=== PATIENT | female | born 1990 | race African-American/Black ===

== ENCOUNTER 2016-03-29 10:11 | Emergency (ER) | payer SELFPAY ==
[~2016-03-29 10:11] MED LIST: ATARAX OR; BENZ1TA PO; COGE1INJ IJ; COGE1INJ PO; DIVA500T3 PO; GEOD40CA OR; GEOD60CA OR; HYDR50TA8 OR; LITH300C PO; OLAN10TA2 PO; OLAN20TA PO; RISP1TAB3 PO; RISP3TAB16 OR; TRAZ50TA2 PO; ZANT150T OR
[2016-03-29 10:50] LABS: MEAN CORPUSCULAR HEMOGLOBIN 30.8 pg (27.0-33.0); MEAN CORPUSCULAR VOLUME 93.5 fl (80.0-96.0); RED CELL DISTRIBUTION WIDTH 13.5 % (11.5-14.5); WHITE BLOOD COUNT 6.6 K/mm3 (4.0-10.0)
[2016-03-29 10:57] LABS: AMPHETAMINES LEVEL URINE NEGATIVE (NEGATIVE); BENZODIAZEPINES URINE NEGATIVE (NEGATIVE); COCAINE METABOLITE URINE NEGATIVE (NEGATIVE); CONTROL LINE INT CTR LINE PRESENT; METHADONE URINE NEGATIVE (NEGATIVE); OPIATES URINE NEGATIVE (NEGATIVE); TRICYCLIC ANTIDEPRESS URINE NEGATIVE (NEGATIVE)
[2016-03-29 10:59] LABS: CONTROL LINE HCG INT CTR LINE PRESENT
[2016-03-29 11:12] LABS: ALBUMIN 3.4 GM/DL (3.2-5.2); ALBUMIN/GLOBULIN RATIO 0.87 (1.00-1.93); ALKALINE PHOSPHATASE 49 U/L (45-117); ALT/SGPT 48 U/L (12-78); ANION GAP 10 MEQ/L (8-16); AST/SGOT 26 U/L (15-37); BILIRUBIN,DIRECT < 0.1 MG/DL (0.0-0.2); BILIRUBIN,TOTAL 0.2 MG/DL (0.2-1.0); BLOOD UREA NITROGEN 7 MG/DL (7-18); CALCIUM LEVEL 9.6 MG/DL (8.5-10.1); CARBON DIOXIDE LEVEL 28 MEQ/L (21-32); CHLORIDE LEVEL 107 MEQ/L (98-107); GLOMERULAR FILTRATION RATE > 60.0 (>60); GLUCOSE, FASTING 88 MG/DL (70-105); POTASSIUM SERUM 4.2 MEQ/L (3.5-5.1); SODIUM LEVEL 145 MEQ/L (136-145); TOTAL PROTEIN 7.3 GM/DL (6.4-8.2)
[2016-03-29 11:19] LABS: LITHIUM LEVEL 1.25 MEQ/L (0.60-1.20)
--- NOTE | 2016-03-29 13:11 | EDDOCDS ---
Nurse's Notes [facility] Name: Estella Cruz Age: 26 yrs Sex: Female : 1990 Arrival Date: 03/29/2016 Time: 10:11 Bed BH Private MD: Other - Complete Info On Cds Diagnosis: Schizophrenia Presentation: 03/29 10:21 Presenting complaint: Patient states: hearing and seeing things since last night. hs1 Patient states voices make her scared and she was unable to sleep well last night. Patients sister present with patient. Pt also requesting test. Mental Health Triage Level: Level 2: Pt having auditory and visual hallucinations. Adult Sepsis Screening: The patient does not have new or worsening altered mentation. Patient's respiratory rate is less than 22. Systolic blood pressure is greater than 100. Patient has a qSOFA score of 0- Negative Sepsis Screen. Suicide/Homicide risk assessment- Patient denies SI and HI but presents with another emotional, behavioral or other mental health complaint. The patient reports that he/she has been admitted to an inpatient mental health facility in the last 30 days. The patient reports that he/she has no prior history of suicide attempt and/or organized plan. The patient reports that he/she has adequate social support. Transition of care: patient was not received from another setting of care. 10:21 Acuity: LYNN Level 3 hs1 10:21 Method Of Arrival: Walkin/Carried/Asstd hs1 Triage Assessment: 10:24 General: Appears in no apparent distress, Behavior is appropriate for age, cooperative. hs1 Pain: Denies pain. HIV screening NA for this visit Offered previously. Neurological: Level of Consciousness is awake, alert, obeys commands. Cardiovascular: Capillary refill < 3 seconds. Respiratory: Airway is patent Respiratory effort is even, unlabored. Derm: Skin is pink, warm & dry. normal. Historical: - Allergies: PENICILLINS (Unknown); - Home Meds: 1. divalproex 500 mg oral TbEC 1 tab 2 times per day 2. olanzapine 10 mg oral tab 3 tabs nightly verified with pharmacy 03/29/16 hs 3. lithium carbonate 300 mg oral tab 2 tabs twice a day verified with pharmacy 03/29/16 hs - PMHx: Schizophrenia; - PSHx: none; - Social history: Smoking status: Patient states was never smoker of tobacco. No barriers to communication noted, The patient speaks fluent Slovenian, Speaks appropriately for age. - Family history: Not pertinent. - : The pt / caregiver states he / she is not on anticoagulants. Home medication list is obtained from the patient, patients' pharmacy. - Exposure Risk Screening:: None identified. Screenin:00 Screening information is obtained from prior medical records. Fall risk: No risks ms2 identified. Assistance ADL's: requires no assistance with activities of daily living. Abuse/DV Screen: The patient / caregiver reports he/she is: not in a situation that causes fear, pain or injury. Nutritional screening: On. Nutritional screening: No deficits noted. Advance Directives: Currently, there is no health care proxy. There is no active DNR order. There is no living will. There is no Power of Iron Pourer. Advance directive information has not previously been placed in an [facility] medical record. Further advance directive information is declined. home support is adequate. Assessment: 11:30 General: Appears in no apparent distress, Behavior is cooperative. Neurological: Level ms2 of Consciousness is awake, alert, obeys commands. Respiratory: Airway is patent Respiratory effort is even, unlabored, Respiratory pattern is regular, symmetrical. Derm: Skin is normal. Musculoskeletal: Range of motion intact in all extremities. 13:05 General: Appears in no apparent distress, Behavior is cooperative. Neurological: Level ms2 of Consciousness is awake, alert, obeys commands. Respiratory: No deficits noted. Airway is patent Respiratory effort is even, unlabored, Respiratory pattern is regular, agonal. :. Derm: Skin is pink, warm & dry. Musculoskeletal: Range of motion intact in all extremities. Mental Health Eval: 11:47 Mental health consult is initiated at 23:30. 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 [facility] Behavioral Health: The patient is not an established patient of [facility] Behavioral Health. Referral Information: Evaluation referral is generated by the patient himself / herself. The patient was referred for evaluation because she reports suffering from AH and VH last night that triggered her to become fearful. She denied SI and HI, command AH upon arrival.... Subjective: The patients chief complaint is pt states, "I'm feeling much better." Pt reports a hx of Schizophrenia, however reports she was misdiagnosed and while admitted to [facility](Feb, 2016), diagnosis changed to Bi-polar Disorder with psychotic features. States she was discharged from [facility] on 03/18/16 with follow up tx with [facility]. Apparently, pt has missed 3 of her appts, however continues to remain med compliant. She does appear to be internally pre-occupied. Denies AH and VH currently, however last night she reports hearing "noises that scared her" along with "seeing demons." Pt states, "I'm feeling so much better." Pt is very calm and cooperative during interview. Pt and family are comfortable with discharge plan and report no concerns currently. . Delusions are denied. Patient's mood is appropriate. hallucinations are Denied currently. Last AH/VH was last night and denied command. . Mental Health history: Bipolar Disorder, Mental Health Admissions: Numerous admissions, last admission 03/07/16 and 03/18/16 Current Outpatient Mental Health Services: [facility], Next appt scheduled for 03/30 at 12:30 PM . Current living environment is Family / Home Support: adequate family support The patient currently lives with his / her child. with his / her spouse, . The patient is . Patient presents to Emergency Department with the following symptoms within the past 2 weeks: auditory hallucinations stated by patient visual hallucinations, stated by patient. Substance abuse: Pt denies. Mental status exam: Patients appearance is appropriate, Patient's behavior is cooperative, Speech is normal. Affect is appropriate. Mood is appropriate. Appetite is normal. Memory is good. Energy level is normal. Content of thought is normal. Thought process is intact. Cognitive level is oriented to person, place, time and situation Patient's insight is good. Judgement is good. Rapport with interviewer is good. Suicidal Ideation is denied. Homicidal ideation is denied. Disposition: Medically cleared for disposition by Rosemary Osborn MD Psychiatric Consult is deferred per ED physician, Dr Florentino . [facility] Admission Criteria: Not Applicable. [place] because the patient does not display any suicidal or homicidal ideations and does not pose a risk to self or others. DSM-V Differential Diagnosis: Bipolar I Disorder (F31.0). Insurance Pre-Certification: Not Required. Narrative: Pt is able to be discharged from [facility]. She continues to deny SI and HI, denies AH/VH currently. Referrals for outpt services was given at bedside and directed to follow up with TLS tomorrow 03/30 at 12:30 PM for further tx. Vital Signs: 10:13 BP 105 / 62; Pulse 87; Resp 18; Temp 97.3(O); Pulse Ox 99% on R/A; Weight 74.84 kg (R); ct3 Height 5 ft. 4 in. (162.56 cm) (R); Pain 0/10; 13:06 BP 114 / 67; Pulse 76; Resp 20 S; Temp 97.1(T); Pulse Ox 99% on R/A; ms2 10:13 Body Mass Index 28.32 (74.84 kg, 162.56 cm) ct3 Vitals: 10:13 Log In Time: March 29, 2016 at 10:10. RN notified that patient meets Red Flag ct3 criteria. ED Course: 10:12 Patient visited by Beth Carter PCA. ct3 10:12 Patient moved to [facility] ct3 10:13 Other - Complete Info On Cds is Private Physician. ct3 10:21 Patient moved to [facility] hs1 10:23 Triage Initiated hs1 10:36 Patient visited by Dru Pérez PCA. jlf 10:37 Patient visited by Dru Pérez PCA. jlf 10:37 Property removed, inventory done, secured in belongings bag-. Psych Safety Check: [facility] Location: Psych Room. Visual Assessment: Cooperative. 10:37 Acetaminophen Level Sent. jlf 10:37 Basic Metabolic Profile Sent. jlf 10:37 Complete Blood Count Sent. jlf 10:37 Drug Eval Toxicology ED Only Sent. jlf 10:37 Ethyl Alcohol (ethanol) Sent. jlf 10:37 HCG,Serum Qualitative Sent. jlf 10:37 Liver Profile Sent. jlf 10:37 Salicylate Level Sent. jlf 10:37 Thyroid Stimulating Hormone Sent. jlf 10:40 Rosemary Osborn MD is Attending Physician. sd1 10:41 Patient visited by Rosemary Osborn MD. sd1 10:41 Pt greeted and oriented to ED. Patient advised of names of staff involved in care, pjf location of call mathews, wait times and NPO status. Accompanied by Family Member, Patient has correct armband on for positive identification. Placed in psych safe attire. Bed in low position. Call light in reach. Side rails up X 1. Security observing. Property Property placed in locker #1. Door closed. Report received from rn - psych. triage level #2, +ah/vh, cooperative \\T\\ this time. The patient / caregiver is instructed regarding the plan of care and ED course. 10:57 Patient visited by Casey Montanez Security Aide. pjf 11:07 José Miguel Andrew,RN is Primary Nurse. ms2 11:07 Patient name changed from Estella\\S\\Keonne\\S\\Latulas\\S\\ to Estella\\S\\Keonne\\S\\Sequatchie. EDMS 11:09 [facility] Payment Agreement was scanned into Blend[employer] and attached to record. pm4 11:13 Patient visited by Casey Montanez Security Aide. pjf 11:36 Patient visited by Casey Montanez Security Aide. pjf 11:48 Patient visited by Casey Montanez Security Aide. pjf 12:17 Referral list, As provided by [facility] is Referral Physician. sd1 12:23 PSA Outpatient Referrals was scanned into Blendagram and attached to record. ml4 12:50 Patient visited by Casey Montanez Security Aide. pjf 13:00 No IV's were initiated during this patient's visit. No procedures done that require ms2 assistance. 13:04 Patient visited by Casey Montanez Security Aide. pjf 13:05 Patient visited by José Miguel Andrew RN. ms2 Order Results: Lab Order: Acetaminophen Level; SPEC'M 03/29/16 10:34 Test: ACETAMINOPHEN LEVEL; Value: < 2.0; Range: 10.0-30.0; Abnormal: Below low normal; Units: UG/ML; Status: F Lab Order: Basic Metabolic Profile; SPEC'M 03/29/16 10:34 Test: GLUCOSE, FASTING; Value: 88; Range: 70-105; Units: MG/DL; Status: F Test: BLOOD UREA NITROGEN; Value: 7; Range: 7-18; Units: MG/DL; Status: F Test: CREATININE FOR GFR; Value: 0.70; Range: 0.55-1.02; Units: MG/DL; Status: F Test: SODIUM LEVEL; Range: 136-145; Units: MEQ/L; Status: I Test: POTASSIUM SERUM; Range: 3.5-5.1; Units: MEQ/L; Status: I Test: CHLORIDE LEVEL; Range: 98-107; Units: MEQ/L; Status: I Test: CARBON DIOXIDE LEVEL; Range: 21-32; Units: MEQ/L; Status: I Test: ANION GAP; Range: 8-16; Units: MEQ/L; Status: I Test: CALCIUM LEVEL; Range: 8.5-10.1; Units: MG/DL; Status: I Test: GLOMERULAR FILTRATION RATE; Value: > 60.0; Range: >60; Status: F Test: SODIUM LEVEL; Value: 145; Range: 136-145; Units: MEQ/L; Status: F Test: POTASSIUM SERUM; Value: 4.2; Range: 3.5-5.1; Units: MEQ/L; Status: F Test: CHLORIDE LEVEL; Value: 107; Range: 98-107; Units: MEQ/L; Status: F Test: CARBON DIOXIDE LEVEL; Value: 28; Range: 21-32; Units: MEQ/L; Status: F Test: ANION GAP; Value: 10; Range: 8-16; Units: MEQ/L; Status: F Test: CALCIUM LEVEL; Value: 9.6; Range: 8.5-10.1; Units: MG/DL; Status: F Test Note: ; Units are mL/min/1.73 m2 Chronic Kidney Disease Staging per NKF: Stage I & II GFR >=60 Normal to Mildly Decreased Stage III GFR 30-59 Moderately Decreased Stage IV GFR 15-29 Severely Decreased Stage V GFR <15 Very Little GFR Left ESRD GFR <15 on ORTHOPEDIC ASSISTANT Lab Order: Complete Blood Count; SPEC'M 03/29/16 10:34 Test: WHITE BLOOD COUNT; Value: 6.6; Range: 4.0-10.0; Units: K/mm3; Status: F Test: RED BLOOD COUNT; Value: 3.66; Range: 4.00-5.40; Abnormal: Below low normal; Units: M/mm3; Status: F Test: HEMOGLOBIN; Value: 11.3; Range: 12.0-16.0; Abnormal: Below low normal; Units: g/dl; Status: F Test: HEMATOCRIT; Value: 34.2; Range: 36.0-47.0; Abnormal: Below low normal; Units: %; Status: F Test: MEAN CORPUSCULAR VOLUME; Value: 93.5; Range: 80.0-96.0; Units: fl; Status: F Test: MEAN CORPUSCULAR HEMOGLOBIN; Value: 30.8; Range: 27.0-33.0; Units: pg; Status: F Test: MEAN CORPUSCULAR HGB CONC; Value: 33.0; Range: 32.0-36.5; Units: g/dl; Status: F Test: RED CELL DISTRIBUTION WIDTH; Value: 13.5; Range: 11.5-14.5; Units: %; Status: F Test: PLATELET COUNT, AUTOMATED; Value: 251; Range: 150-450; Units: k/mm3; Status: F Lab Order: Drug Eval Toxicology ED Only; SPEC'M 03/29/16 10:36 Test: AMPHETAMINES LEVEL URINE; Value: NEGATIVE; Range: NEGATIVE; Status: F Test: BARBITURATES URINE; Value: NEGATIVE; Range: NEGATIVE; Status: F Test: BENZODIAZEPINES URINE; Value: NEGATIVE; Range: NEGATIVE; Status: F Test: CANNABINOIDS URINE; Value: NEGATIVE; Range: NEGATIVE; Status: F Test: COCAINE METABOLITE URINE; Value: NEGATIVE; Range: NEGATIVE; Status: F Test: METHADONE URINE; Value: NEGATIVE; Range: NEGATIVE; Status: F Test: OPIATES URINE; Value: NEGATIVE; Range: NEGATIVE; Status: F Test: TRICYCLIC ANTIDEPRESS URINE; Value: NEGATIVE; Range: NEGATIVE; Status: F Test Note: ; ALL PRESUMPTIVE POSITIVE FINDINGS ARE UNCONFIRMED NORMAL VALUES THRESHOLD IN NG/ML AMPHETAMINES 1000 METHAMPHETAMINES 1000 BARBITURATES 300 BENZODIAZEPINES 300 CANNABINOIDS (THC) 50 COCAINE METABOLITE 300 METHADONE 300 OPIATES 300 PHENCYCLIDINE 25 TRICYCLIC ANTIDEPRESSANTS 1000 RESULTS ARE FOR MEDICAL PURPOSES ONLY. ALL URINE SPECIMENS WILL BE SAVED FOR 3 DAYS. IF CONFIRMATION OF A PRESUMPTIVE POSTIVE SCREEN RESULT IS DESIRED, CALL CHEMISTRY ([phone]) AND REQUEST URINE TO BE SENT TO REFERENCE LAB. FOR A LIST OF CLOSELY RELATED COMPOUNDS PLEASE CALL THE LAB. Lab Order: Ethyl Alcohol (ethanol); SPEC'M 03/29/16 10:34 Test: ETHYL ALCOHOL (ETHANOL); Value: < 0.003; Range: 0.000-0.010; Units: %; Status: F Lab Order: HCG,Serum Qualitative; 03/29/16 10:34 Test: HCG, SERUM QUALITATIVE; Value: NEGATIVE; Range: NEGATIVE; Status: F Lab Order: Liver Profile; 03/29/16 10:34 Test: AST/SGOT; Value: 26; Range: 15-37; Units: U/L; Status: F Test: ALT/SGPT; Value: 48; Range: 12-78; Units: U/L; Status: F Test: ALKALINE PHOSPHATASE; Value: 49; Range: 45-117; Units: U/L; Status: F Test: BILIRUBIN,TOTAL; Value: 0.2; Range: 0.2-1.0; Units: MG/DL; Status: F Test: BILIRUBIN,DIRECT; Value: < 0.1; Range: 0.0-0.2; Units: MG/DL; Status: F Test: TOTAL PROTEIN; Value: 7.3; Range: 6.4-8.2; Units: GM/DL; Status: F Test: ALBUMIN; Value: 3.4; Range: 3.2-5.2; Units: GM/DL; Status: F Test: ALBUMIN/GLOBULIN RATIO; Value: 0.87; Range: 1.00-1.93; Abnormal: Below low normal; Status: F Lab Order: Salicylate Level; 03/29/16 10:34 Test: SALICYLATE LEVEL; Value: < 1.7; Range: 5.0-30.0; Abnormal: Below low normal; Units: MG/DL; Status: F Lab Order: Thyroid Stimulating Hormone; 03/29/16 10:34 Test: THYROID STIMULATING HORMONE; Value: 11.600; Range: 0.358-3.740; Abnormal: Above high normal; Units: uIU/ML; Status: F Lab Order: LITHIUM LEVEL; 03/29/16 10:34 Test: LITHIUM LEVEL; Value: 1.25; Range: 0.60-1.20; Abnormal: Above high normal; Units: MEQ/L; Status: F Lab Order: VALPROIC ACID (DEPAKOTE); 03/29/16 10:34 Test: VALPROIC ACID (DEPAKOTE); Value: 99.6; Range: 50.0-100.0; Units: UG/ML; Status: F Outcome: 12:18 Discharge ordered by Provider. sd1 13:05 Discharge Assessment: patient administered narcotics - no. The following High Risk ms2 Discharge criteria are identified: None. Discharged to home ambulatory, with parent. Condition: stable. Discharge instructions given to patient, parents Instructed on discharge instructions, follow up and referral plans. Demonstrated understanding of instructions, Pt was receptive of discharge instructions/ teaching. No special radiology studies were completed. 13:09 Patient left the ED. ms2 Signatures: Dispatcher [employer] EDAL Rosemary Osborn MD MD sd1 José Miguel Andrew,RN RN ms2 Casey Montanez, Security Aide DorisSharda Camarena, PSA PSA ml4 Kymberly Stallings RN RN hs1 Beth Carter, NETWORK OPERATIONS CENTER TECHNICIAN NETWORK OPERATIONS CENTER TECHNICIAN ct3 Dru Pérez, NETWORK OPERATIONS CENTER TECHNICIAN NETWORK OPERATIONS CENTER TECHNICIAN jlf Casey Campbell, Reg Reg pm4 Corrections: (The following items were deleted from the chart) 10:48 10:41 Report received from rn - psych. triage level #2, ams, cooperative \\T\\ this time [id number] 11:00 10:23 Home Meds: olanzapine 20 mg oral tab 1 tab nightly; hs1 hs1 11:00 10:36 Home Meds: lithium carbonate Oral; hs1 hs1 MTDD
--- NOTE | 2016-03-29 13:11 | EDDOCDS ---
Physician Documentation [facility] Name: Estella Cruz Age: 26 yrs Sex: Female : 1990 Arrival Date: 03/29/2016 Time: 10:11 Bed BHU1 Private MD: Other - Complete Info On Cds Disposition: 03/29/16 12:18 Discharged to Home/Self Care. Impression: Schizophrenia. - Condition is Stable. - Discharge Instructions: Schizophrenia. - Medication Reconciliation, Local Pharmacy Hours form. - Follow up: Referral list, As provided by PFS; When: Call to arrange an appointment. - Problem is chronic. - Symptoms have improved. Historical: - Allergies: PENICILLINS (Unknown); - Home Meds: 1. divalproex 500 mg oral TbEC 1 tab 2 times per day 2. olanzapine 10 mg oral tab 3 tabs nightly verified with pharmacy 03/29/16 hs 3. lithium carbonate 300 mg oral tab 2 tabs twice a day verified with pharmacy 03/29/16 hs - PMHx: Schizophrenia; - PSHx: none; - Social history: Smoking status: Patient states was never smoker of tobacco. No barriers to communication noted, The patient speaks fluent Bulgarian, Speaks appropriately for age. - Family history: Not pertinent. - : The pt / caregiver states he / she is not on anticoagulants. Home medication list is obtained from the patient, patients' pharmacy. - Exposure Risk Screening:: None identified. Vital Signs: 03/29 10:13 BP 105 / 62; Pulse 87; Resp 18; Temp 97.3(O); Pulse Ox 99% on R/A; Weight 74.84 kg / ct3 164.99 lbs (R); Height 5 ft. 4 in. (162.56 cm) (R); Pain 0/10; 13:06 BP 114 / 67; Pulse 76; Resp 20 S; Temp 97.1(T); Pulse Ox 99% on R/A; ms2 10:13 Body Mass Index 28.32 (74.84 kg, 162.56 cm) ct3 MDM: 10:24 Consult PFS/PSA/Tube Making Machine Operator ordered. sd1 10:24 Consult PFS/PSA/Tube Making Machine Operator: Patient's case requires discussion with on-call sd1 Psychiatrist ordered. 10:24 PSA/PFS to call Nursing Motion Picture Film Examiner, to enter patient data on [place] Safe Act if patient sd1 involuntarily admitted or transferred for SI or HI ordered. 10:24 Confirm accurate psychiatric medication list and times of last dosage ordered. sd1 10:24 Detain Pt Until Medically/PFS Cleared ordered. sd1 10:25 Acetaminophen Level Ordered. EDMS 10:25 Basic Metabolic Profile Ordered. EDMS 10:25 Complete Blood Count Ordered. EDMS 10:25 Drug Eval Toxicology ED Only Ordered. EDMS 10:25 Ethyl Alcohol (ethanol) Ordered. EDMS 10:25 HCG,Serum Qualitative Ordered. EDMS 10:25 Liver Profile Ordered. EDMS 10:25 Salicylate Level Ordered. EDMS 10:25 Thyroid Stimulating Hormone Ordered. EDMS 10:40 HIV Screen, Nursing ordered. sd1 10:41 LITHIUM LEVEL Ordered. EDMS 10:41 VALPROIC ACID (DEPAKOTE) Ordered. EDMS 11:03 Financial registration complete. pm4 11:09 REGULAR DIET PLASTIC BHAKTA+DIET ordered. EDMS 11:09 [facility] Payment Agreement was scanned into Lovely and attached to record. pm4 11:38 Acetaminophen Level Reviewed. sd1 11:38 Complete Blood Count Reviewed. sd1 11:38 Liver Profile Reviewed. sd1 11:38 Salicylate Level Reviewed. sd1 11:38 Thyroid Stimulating Hormone Reviewed. sd1 11:38 LITHIUM LEVEL Reviewed. sd1 11:38 Basic Metabolic Profile Reviewed. sd1 11:38 Drug Eval Toxicology ED Only Reviewed. sd1 11:38 Ethyl Alcohol (ethanol) Reviewed. sd1 11:38 HCG,Serum Qualitative Reviewed. sd1 11:38 VALPROIC ACID (DEPAKOTE) Reviewed. sd1 12:23 PSA Outpatient Referrals was scanned into Lov[employer] and attached to record. ml4 Signatures: Dispatcher [employer] EDNC Rosemary Osborn MD MD sd1 José Miguel AndrewRN RN ms2 Sharda Jimenez, PSA PSA ml4 Kymberly Stallings RN RN hs1 Casey Campbell, Reg Reg pm4 The chart was reviewed and I authenticate all verbal orders and agree with the evaluation and treatment provided.Corrections: (The following items were deleted from the chart) 10:39 10:37 LITHIUM LEVEL+LAB ordered. EDMS EDMS 10:41 10:38 VALPROIC ACID (DEPAKOTE)+LAB ordered. EDMS EDMS 11:00 10:23 Home Meds: olanzapine 20 mg oral tab 1 tab nightly; hs1 hs1 11:00 10:36 Home Meds: lithium carbonate Oral; hs1 hs1 Attachments: 11:09 [facility] Payment Agreement pm4 MTDD
--- NOTE | 2016-03-31 14:11 | EDDOCDS ---
Physician Documentation [facility] Name: Estella Cruz Age: 26 yrs Sex: Female : 1990 Arrival Date: 03/29/2016 Time: 10:11 Bed BHU1 Private MD: Other - Complete Info On Cds Disposition: 03/29/16 12:18 Discharged to Home/Self Care. Impression: Schizophrenia. - Condition is Stable. - Discharge Instructions: Schizophrenia. - Medication Reconciliation, Local Pharmacy Hours form. - Follow up: Referral list, As provided by PFS; When: Call to arrange an appointment. - Problem is chronic. - Symptoms have improved. Historical: - Allergies: PENICILLINS (Unknown); - Home Meds: 1. divalproex 500 mg oral TbEC 1 tab 2 times per day 2. olanzapine 10 mg oral tab 3 tabs nightly verified with pharmacy 03/29/16 hs 3. lithium carbonate 300 mg oral tab 2 tabs twice a day verified with pharmacy 03/29/16 hs - PMHx: Schizophrenia; - PSHx: none; - Social history: Smoking status: Patient states was never smoker of tobacco. No barriers to communication noted, The patient speaks fluent Occitan, Speaks appropriately for age. - Family history: Not pertinent. - : The pt / caregiver states he / she is not on anticoagulants. Home medication list is obtained from the patient, patients' pharmacy. - Exposure Risk Screening:: None identified. Vital Signs: 03/29 10:13 BP 105 / 62; Pulse 87; Resp 18; Temp 97.3(O); Pulse Ox 99% on R/A; Weight 74.84 kg / ct3 164.99 lbs (R); Height 5 ft. 4 in. (162.56 cm) (R); Pain 0/10; 13:06 BP 114 / 67; Pulse 76; Resp 20 S; Temp 97.1(T); Pulse Ox 99% on R/A; ms2 10:13 Body Mass Index 28.32 (74.84 kg, 162.56 cm) ct3 MDM: 10:24 Consult PFS/PSA/Archeology Professor ordered. sd1 10:24 Consult PFS/PSA/Archeology Professor: Patient's case requires discussion with on-call sd1 Psychiatrist ordered. 10:24 PSA/PFS to call Nursing [employer] Tech, to enter patient data on [place] Safe [place] if patient sd1 involuntarily admitted or transferred for SI or HI ordered. 10:24 Confirm accurate psychiatric medication list and times of last dosage ordered. sd1 10:24 Detain Pt Until Medically/PFS Cleared ordered. sd1 10:25 Acetaminophen Level Ordered. EDMS 10:25 Basic Metabolic Profile Ordered. EDMS 10:25 Complete Blood Count Ordered. EDMS 10:25 Drug Eval Toxicology ED Only Ordered. EDMS 10:25 Ethyl Alcohol (ethanol) Ordered. EDMS 10:25 HCG,Serum Qualitative Ordered. EDMS 10:25 Liver Profile Ordered. EDMS 10:25 Salicylate Level Ordered. EDMS 10:25 Thyroid Stimulating Hormone Ordered. EDMS 10:40 HIV Screen, Nursing ordered. sd1 10:41 LITHIUM LEVEL Ordered. EDMS 10:41 VALPROIC ACID (DEPAKOTE) Ordered. EDMS 11:03 Financial registration complete. pm4 11:09 REGULAR DIET PLASTIC BHAKTA+DIET ordered. EDMS 11:09 [facility] Payment Agreement was scanned into [employer] and attached to record. pm4 11:38 Acetaminophen Level Reviewed. sd1 11:38 Complete Blood Count Reviewed. sd1 11:38 Liver Profile Reviewed. sd1 11:38 Salicylate Level Reviewed. sd1 11:38 Thyroid Stimulating Hormone Reviewed. sd1 11:38 LITHIUM LEVEL Reviewed. sd1 11:38 Basic Metabolic Profile Reviewed. sd1 11:38 Drug Eval Toxicology ED Only Reviewed. sd1 11:38 Ethyl Alcohol (ethanol) Reviewed. sd1 11:38 HCG,Serum Qualitative Reviewed. sd1 11:38 VALPROIC ACID (DEPAKOTE) Reviewed. sd1 12:23 PSA Outpatient Referrals was scanned into [employer] and attached to record. ml4 03/30 11:11 T-Sheet-- Draft Copy was scanned into [employer] and attached to record. gb Signatures: Dispatcher [employer] EDMS Rosemary Osborn MD MD sd1 José Miguel Andrew,RN RN ms2 Xiomara Nugent, Reg Reg gb Sharda Jimenez, PSA PSA ml4 Kymberly Stallings RN RN hs1 Casey Campbell, Reg Reg pm4 The chart was reviewed and I authenticate all verbal orders and agree with the evaluation and treatment provided.Corrections: (The following items were deleted from the chart) 03/29 10:39 10:37 LITHIUM LEVEL+LAB ordered. EDMS EDMS 10:41 10:38 VALPROIC ACID (DEPAKOTE)+LAB ordered. EDMS EDMS 11:00 10:23 Home Meds: olanzapine 20 mg oral tab 1 tab nightly; hs1 hs1 11:00 10:36 Home Meds: lithium carbonate Oral; hs1 hs1 Attachments: 11:09 [facility] Payment Agreement pm4 03/30 11:11 T-Sheet-- Draft Copy gb Chart Complete MTDD
--- NOTE | 2016-03-31 14:11 | EDDOCDS ---
Nurse's Notes [facility] Name: Estella Cruz Age: 26 yrs Sex: Female : 1990 Arrival Date: 03/29/2016 Time: 10:11 Bed BH Private MD: Other - Complete Info On Cds Diagnosis: Schizophrenia Presentation: 03/29 10:21 Presenting complaint: Patient states: hearing and seeing things since last night. hs1 Patient states voices make her scared and she was unable to sleep well last night. Patients sister present with patient. Pt also requesting test. Mental Health Triage Level: Level 2: Pt having auditory and visual hallucinations. Adult Sepsis Screening: The patient does not have new or worsening altered mentation. Patient's respiratory rate is less than 22. Systolic blood pressure is greater than 100. Patient has a qSOFA score of 0- Negative Sepsis Screen. Suicide/Homicide risk assessment- Patient denies SI and HI but presents with another emotional, behavioral or other mental health complaint. The patient reports that he/she has been admitted to an inpatient mental health facility in the last 30 days. The patient reports that he/she has no prior history of suicide attempt and/or organized plan. The patient reports that he/she has adequate social support. Transition of care: patient was not received from another setting of care. 10:21 Acuity: LYNN Level 3 hs1 10:21 Method Of Arrival: Walkin/Carried/Asstd hs1 Triage Assessment: 10:24 General: Appears in no apparent distress, Behavior is appropriate for age, cooperative. hs1 Pain: Denies pain. HIV screening NA for this visit Offered previously. Neurological: Level of Consciousness is awake, alert, obeys commands. Cardiovascular: Capillary refill < 3 seconds. Respiratory: Airway is patent Respiratory effort is even, unlabored. Derm: Skin is pink, warm & dry. normal. Historical: - Allergies: PENICILLINS (Unknown); - Home Meds: 1. divalproex 500 mg oral TbEC 1 tab 2 times per day 2. olanzapine 10 mg oral tab 3 tabs nightly verified with pharmacy 03/29/16 hs 3. lithium carbonate 300 mg oral tab 2 tabs twice a day verified with pharmacy 03/29/16 hs - PMHx: Schizophrenia; - PSHx: none; - Social history: Smoking status: Patient states was never smoker of tobacco. No barriers to communication noted, The patient speaks fluent Urdu, Speaks appropriately for age. - Family history: Not pertinent. - : The pt / caregiver states he / she is not on anticoagulants. Home medication list is obtained from the patient, patients' pharmacy. - Exposure Risk Screening:: None identified. Screenin:00 Screening information is obtained from prior medical records. Fall risk: No risks ms2 identified. Assistance ADL's: requires no assistance with activities of daily living. Abuse/DV Screen: The patient / caregiver reports he/she is: not in a situation that causes fear, pain or injury. Nutritional screening: On. Nutritional screening: No deficits noted. Advance Directives: Currently, there is no health care proxy. There is no active DNR order. There is no living will. There is no Power of Property Manager. Advance directive information has not previously been placed in an [facility] medical record. Further advance directive information is declined. home support is adequate. Assessment: 11:30 General: Appears in no apparent distress, Behavior is cooperative. Neurological: Level ms2 of Consciousness is awake, alert, obeys commands. Respiratory: Airway is patent Respiratory effort is even, unlabored, Respiratory pattern is regular, symmetrical. Derm: Skin is normal. Musculoskeletal: Range of motion intact in all extremities. 13:05 General: Appears in no apparent distress, Behavior is cooperative. Neurological: Level ms2 of Consciousness is awake, alert, obeys commands. Respiratory: No deficits noted. Airway is patent Respiratory effort is even, unlabored, Respiratory pattern is regular, agonal. :. Derm: Skin is pink, warm & dry. Musculoskeletal: Range of motion intact in all extremities. Mental Health Eval: 11:47 Mental health consult is initiated at 23:30. Status: The patient is not a ml4 foreign exchange services manager or dependent. [facility] Behavioral Health: The patient is not an established patient of [facility] Behavioral Health. Referral Information: Evaluation referral is generated by the patient himself / herself. The patient was referred for evaluation because she reports suffering from AH and VH last night that triggered her to become fearful. She denied SI and HI, command AH upon arrival.... Subjective: The patients chief complaint is pt states, "I'm feeling much better." Pt reports a hx of Schizophrenia, however reports she was misdiagnosed and while admitted to [facility](Feb, 2016), diagnosis changed to Bi-polar Disorder with psychotic features. States she was discharged from [facility] on 03/18/16 with follow up tx with [facility]. Apparently, pt has missed 3 of her appts, however continues to remain med compliant. She does appear to be internally pre-occupied. Denies AH and VH currently, however last night she reports hearing "noises that scared her" along with "seeing demons." Pt states, "I'm feeling so much better." Pt is very calm and cooperative during interview. Pt and family are comfortable with discharge plan and report no concerns currently. . Delusions are denied. Patient's mood is appropriate. hallucinations are Denied currently. Last AH/VH was last night and denied command. . Mental Health history: Bipolar Disorder, Mental Health Admissions: Numerous admissions, last admission 03/07/16 and 03/18/16 Current Outpatient Mental Health Services: [facility], Next appt scheduled for 03/30 at 12:30 PM . Current living environment is Family / Home Support: adequate family support The patient currently lives with his / her child. with his / her spouse, . The patient is . Patient presents to Emergency Department with the following symptoms within the past 2 weeks: auditory hallucinations stated by patient visual hallucinations, stated by patient. Substance abuse: Pt denies. Mental status exam: Patients appearance is appropriate, Patient's behavior is cooperative, Speech is normal. Affect is appropriate. Mood is appropriate. Appetite is normal. Memory is good. Energy level is normal. Content of thought is normal. Thought process is intact. Cognitive level is oriented to person, place, time and situation Patient's insight is good. Judgement is good. Rapport with interviewer is good. Suicidal Ideation is denied. Homicidal ideation is denied. Disposition: Medically cleared for disposition by Rosemary Osborn MD Psychiatric Consult is deferred per ED physician, Dr Florentino . [facility] Admission Criteria: Not Applicable. [place] because the patient does not display any suicidal or homicidal ideations and does not pose a risk to self or others. DSM-V Differential Diagnosis: Bipolar I Disorder (F31.0). Insurance Pre-Certification: Not Required. Narrative: Pt is able to be discharged from [facility]. She continues to deny SI and HI, denies AH/VH currently. Referrals for outpt services was given at bedside and directed to follow up with TLS tomorrow 03/30 at 12:30 PM for further tx. Vital Signs: 10:13 BP 105 / 62; Pulse 87; Resp 18; Temp 97.3(O); Pulse Ox 99% on R/A; Weight 74.84 kg (R); ct3 Height 5 ft. 4 in. (162.56 cm) (R); Pain 0/10; 13:06 BP 114 / 67; Pulse 76; Resp 20 S; Temp 97.1(T); Pulse Ox 99% on R/A; ms2 10:13 Body Mass Index 28.32 (74.84 kg, 162.56 cm) ct3 Vitals: 10:13 Log In Time: March 29, 2016 at 10:10. RN notified that patient meets Red Flag ct3 criteria. ED Course: 10:12 Patient visited by Beth Carter PCA. ct3 10:12 Patient moved to [facility] ct3 10:13 Other - Complete Info On Cds is Private Physician. ct3 10:21 Patient moved to [facility] [[email or web address]] hs1 10:23 Triage Initiated hs1 10:36 Patient visited by Dru Pérez PCA. jlf 10:37 Patient visited by Dru Pérez PCA. jlf 10:37 Property removed, inventory done, secured in belongings bag-. Psych Safety Check: [facility] Location: Psych Room. Visual Assessment: Cooperative. 10:37 Acetaminophen Level Sent. jlf 10:37 Basic Metabolic Profile Sent. jlf 10:37 Complete Blood Count Sent. jlf 10:37 Drug Eval Toxicology ED Only Sent. jlf 10:37 Ethyl Alcohol (ethanol) Sent. jlf 10:37 HCG,Serum Qualitative Sent. jlf 10:37 Liver Profile Sent. jlf 10:37 Salicylate Level Sent. jlf 10:37 Thyroid Stimulating Hormone Sent. jlf 10:40 Rosemary Osborn MD is Attending Physician. sd1 10:41 Patient visited by Rosemary Osborn MD. sd1 10:41 Pt greeted and oriented to ED. Patient advised of names of staff involved in care, pjf location of call mathews, wait times and NPO status. Accompanied by Family Member, Patient has correct armband on for positive identification. Placed in psych safe attire. Bed in low position. Call light in reach. Side rails up X 1. Security observing. Property Property placed in locker #1. Door closed. Report received from rn - psych. triage level #2, +ah/vh, cooperative \\T\\ this time. The patient / caregiver is instructed regarding the plan of care and ED course. 10:57 Patient visited by Casey Montanez Security Aide. pjf 11:07 José Miguel Andrew,RN is Primary Nurse. ms2 11:07 Patient name changed from Estella\\S\\Keonne\\S\\Latulas\\S\\ to Estella\\S\\Keonne\\S\\[place]. EDMS 11:09 [facility] Payment Agreement was scanned into [employer] and attached to record. pm4 11:13 Patient visited by Casey Montanez Security Aide. pjf 11:36 Patient visited by Casey Montanez Security Aide. pjf 11:48 Patient visited by Casey Montanez Security Aide. pjf 12:17 Referral list, As provided by [facility] is Referral Physician. sd1 12:23 PSA Outpatient Referrals was scanned into [employer] and attached to record. ml4 12:50 Patient visited by Casey Montanez Security Aide. pjf 13:00 No IV's were initiated during this patient's visit. No procedures done that require ms2 assistance. 13:04 Patient visited by Casey Montanez Security Aide. pjf 13:05 Patient visited by José Miguel Andrew RN. ms2 03/30 11:11 T-Sheet-- Draft Copy was scanned into [employer] and attached to record. gb Order Results: Lab Order: Acetaminophen Level; SPEC'M 03/29/16 10:34 Test: ACETAMINOPHEN LEVEL; Value: < 2.0; Range: 10.0-30.0; Abnormal: Below low normal; Units: UG/ML; Status: F Lab Order: Basic Metabolic Profile; SPEC'M 03/29/16 10:34 Test: GLUCOSE, FASTING; Value: 88; Range: 70-105; Units: MG/DL; Status: F Test: BLOOD UREA NITROGEN; Value: 7; Range: 7-18; Units: MG/DL; Status: F Test: CREATININE FOR GFR; Value: 0.70; Range: 0.55-1.02; Units: MG/DL; Status: F Test: SODIUM LEVEL; Range: 136-145; Units: MEQ/L; Status: I Test: POTASSIUM SERUM; Range: 3.5-5.1; Units: MEQ/L; Status: I Test: CHLORIDE LEVEL; Range: 98-107; Units: MEQ/L; Status: I Test: CARBON DIOXIDE LEVEL; Range: 21-32; Units: MEQ/L; Status: I Test: ANION GAP; Range: 8-16; Units: MEQ/L; Status: I Test: CALCIUM LEVEL; Range: 8.5-10.1; Units: MG/DL; Status: I Test: GLOMERULAR FILTRATION RATE; Value: > 60.0; Range: >60; Status: F Test: SODIUM LEVEL; Value: 145; Range: 136-145; Units: MEQ/L; Status: F Test: POTASSIUM SERUM; Value: 4.2; Range: 3.5-5.1; Units: MEQ/L; Status: F Test: CHLORIDE LEVEL; Value: 107; Range: 98-107; Units: MEQ/L; Status: F Test: CARBON DIOXIDE LEVEL; Value: 28; Range: 21-32; Units: MEQ/L; Status: F Test: ANION GAP; Value: 10; Range: 8-16; Units: MEQ/L; Status: F Test: CALCIUM LEVEL; Value: 9.6; Range: 8.5-10.1; Units: MG/DL; Status: F Test Note: ; Units are mL/min/1.73 m2 Chronic Kidney Disease Staging per NKF: Stage I & II GFR >=60 Normal to Mildly Decreased Stage III GFR 30-59 Moderately Decreased Stage IV GFR 15-29 Severely Decreased Stage V GFR <15 Very Little GFR Left ESRD GFR <15 on MAINTENANCE SHOP [employer]ER Lab Order: Complete Blood Count; SPEC'M 03/29/16 10:34 Test: WHITE BLOOD COUNT; Value: 6.6; Range: 4.0-10.0; Units: K/mm3; Status: F Test: RED BLOOD COUNT; Value: 3.66; Range: 4.00-5.40; Abnormal: Below low normal; Units: M/mm3; Status: F Test: HEMOGLOBIN; Value: 11.3; Range: 12.0-16.0; Abnormal: Below low normal; Units: g/dl; Status: F Test: HEMATOCRIT; Value: 34.2; Range: 36.0-47.0; Abnormal: Below low normal; Units: %; Status: F Test: MEAN CORPUSCULAR VOLUME; Value: 93.5; Range: 80.0-96.0; Units: fl; Status: F Test: MEAN CORPUSCULAR HEMOGLOBIN; Value: 30.8; Range: 27.0-33.0; Units: pg; Status: F Test: MEAN CORPUSCULAR HGB CONC; Value: 33.0; Range: 32.0-36.5; Units: g/dl; Status: F Test: RED CELL DISTRIBUTION WIDTH; Value: 13.5; Range: 11.5-14.5; Units: %; Status: F Test: PLATELET COUNT, AUTOMATED; Value: 251; Range: 150-450; Units: k/mm3; Status: F Lab Order: Drug Eval Toxicology ED Only; SPEC'M 03/29/16 10:36 Test: AMPHETAMINES LEVEL URINE; Value: NEGATIVE; Range: NEGATIVE; Status: F Test: BARBITURATES URINE; Value: NEGATIVE; Range: NEGATIVE; Status: F Test: BENZODIAZEPINES URINE; Value: NEGATIVE; Range: NEGATIVE; Status: F Test: CANNABINOIDS URINE; Value: NEGATIVE; Range: NEGATIVE; Status: F Test: COCAINE METABOLITE URINE; Value: NEGATIVE; Range: NEGATIVE; Status: F Test: METHADONE URINE; Value: NEGATIVE; Range: NEGATIVE; Status: F Test: OPIATES URINE; Value: NEGATIVE; Range: NEGATIVE; Status: F Test: TRICYCLIC ANTIDEPRESS URINE; Value: NEGATIVE; Range: NEGATIVE; Status: F Test Note: ; ALL PRESUMPTIVE POSITIVE FINDINGS ARE UNCONFIRMED NORMAL VALUES THRESHOLD IN NG/ML AMPHETAMINES 1000 METHAMPHETAMINES 1000 BARBITURATES 300 BENZODIAZEPINES 300 CANNABINOIDS (THC) 50 COCAINE METABOLITE 300 METHADONE 300 OPIATES 300 PHENCYCLIDINE 25 TRICYCLIC ANTIDEPRESSANTS 1000 RESULTS ARE FOR MEDICAL PURPOSES ONLY. ALL URINE SPECIMENS WILL BE SAVED FOR 3 DAYS. IF CONFIRMATION OF A PRESUMPTIVE POSTIVE SCREEN RESULT IS DESIRED, CALL CHEMISTRY ([phone]) AND REQUEST URINE TO BE SENT TO REFERENCE LAB. FOR A LIST OF CLOSELY RELATED COMPOUNDS PLEASE CALL THE LAB. Lab Order: Ethyl Alcohol (ethanol); SPEC'M 03/29/16 10:34 Test: ETHYL ALCOHOL (ETHANOL); Value: < 0.003; Range: 0.000-0.010; Units: %; Status: F Lab Order: HCG,Serum Qualitative; 03/29/16 10:34 Test: HCG, SERUM QUALITATIVE; Value: NEGATIVE; Range: NEGATIVE; Status: F Lab Order: Liver Profile; 03/29/16 10:34 Test: AST/SGOT; Value: 26; Range: 15-37; Units: U/L; Status: F Test: ALT/SGPT; Value: 48; Range: 12-78; Units: U/L; Status: F Test: ALKALINE PHOSPHATASE; Value: 49; Range: 45-117; Units: U/L; Status: F Test: BILIRUBIN,TOTAL; Value: 0.2; Range: 0.2-1.0; Units: MG/DL; Status: F Test: BILIRUBIN,DIRECT; Value: < 0.1; Range: 0.0-0.2; Units: MG/DL; Status: F Test: TOTAL PROTEIN; Value: 7.3; Range: 6.4-8.2; Units: GM/DL; Status: F Test: ALBUMIN; Value: 3.4; Range: 3.2-5.2; Units: GM/DL; Status: F Test: ALBUMIN/GLOBULIN RATIO; Value: 0.87; Range: 1.00-1.93; Abnormal: Below low normal; Status: F Lab Order: Salicylate Level; 03/29/16 10:34 Test: SALICYLATE LEVEL; Value: < 1.7; Range: 5.0-30.0; Abnormal: Below low normal; Units: MG/DL; Status: F Lab Order: Thyroid Stimulating Hormone; 03/29/16 10:34 Test: THYROID STIMULATING HORMONE; Value: 11.600; Range: 0.358-3.740; Abnormal: Above high normal; Units: uIU/ML; Status: F Lab Order: LITHIUM LEVEL; 03/29/16 10:34 Test: LITHIUM LEVEL; Value: 1.25; Range: 0.60-1.20; Abnormal: Above high normal; Units: MEQ/L; Status: F Lab Order: VALPROIC ACID (DEPAKOTE); 03/29/16 10:34 Test: VALPROIC ACID (DEPAKOTE); Value: 99.6; Range: 50.0-100.0; Units: UG/ML; Status: F Outcome: 03/29 12:18 Discharge ordered by Provider. sd1 13:05 Discharge Assessment: patient administered narcotics - no. The following High Risk ms2 Discharge criteria are identified: None. Discharged to home ambulatory, with parent. Condition: stable. Discharge instructions given to patient, parents Instructed on discharge instructions, follow up and referral plans. Demonstrated understanding of instructions, Pt was receptive of discharge instructions/ teaching. No special radiology studies were completed. 13:09 Patient left the ED. ms2 Signatures: Dispatcher [employer] EDMS Rosemary Osbron MD MD sd1 José Miguel Andrew,RN RN ms2 Xiomara Nugent, Reg Reg gb Casey Montanez, Security Aide Securpjf Sharda Jimenez, PSA PSA ml4 Kymberly Stallings RN RN hs1 Beth Carter, RESEARCH & INSIGHTS EXECUTIVE RESEARCH & INSIGHTS EXECUTIVE ct3 Dru Pérez, RESEARCH & INSIGHTS EXECUTIVE RESEARCH & INSIGHTS EXECUTIVE jlf Casey Campbell, Reg Reg pm4 Corrections: (The following items were deleted from the chart) 10:48 10:41 Report received from rn - psych. triage level #2, ams, cooperative \\T\\ this time pjfpjf 11:00 10:23 Home Meds: olanzapine 20 mg oral tab 1 tab nightly; hs1 hs1 11:00 10:36 Home Meds: lithium carbonate Oral; hs1 hs1 Chart Complete MTDD
--- NOTE | 2016-03-31 14:11 | EDDOCDS ---
Physician Documentation [facility] Name: Etsella Cruz Age: 26 yrs Sex: Female : 1990 Arrival Date: 03/29/2016 Time: 10:11 Bed BHU1 Private MD: Other - Complete Info On Cds Disposition: 03/29/16 12:18 Discharged to Home/Self Care. Impression: Schizophrenia. - Condition is Stable. - Discharge Instructions: Schizophrenia. - Medication Reconciliation, Local Pharmacy Hours form. - Follow up: Referral list, As provided by PFS; When: Call to arrange an appointment. - Problem is chronic. - Symptoms have improved. Historical: - Allergies: PENICILLINS (Unknown); - Home Meds: 1. divalproex 500 mg oral TbEC 1 tab 2 times per day 2. olanzapine 10 mg oral tab 3 tabs nightly verified with pharmacy 03/29/16 hs 3. lithium carbonate 300 mg oral tab 2 tabs twice a day verified with pharmacy 03/29/16 hs - PMHx: Schizophrenia; - PSHx: none; - Social history: Smoking status: Patient states was never smoker of tobacco. No barriers to communication noted, The patient speaks fluent Icelandic, Speaks appropriately for age. - Family history: Not pertinent. - : The pt / caregiver states he / she is not on anticoagulants. Home medication list is obtained from the patient, patients' pharmacy. - Exposure Risk Screening:: None identified. Vital Signs: 03/29 10:13 BP 105 / 62; Pulse 87; Resp 18; Temp 97.3(O); Pulse Ox 99% on R/A; Weight 74.84 kg / ct3 164.99 lbs (R); Height 5 ft. 4 in. (162.56 cm) (R); Pain 0/10; 13:06 BP 114 / 67; Pulse 76; Resp 20 S; Temp 97.1(T); Pulse Ox 99% on R/A; ms2 10:13 Body Mass Index 28.32 (74.84 kg, 162.56 cm) ct3 MDM: 10:24 Consult PFS/PSA/Retail Loss Prevention Officer ordered. sd1 10:24 Consult PFS/PSA/Retail Loss Prevention Officer: Patient's case requires discussion with on-call sd1 Psychiatrist ordered. 10:24 PSA/PFS to call Nursing Laborer Operator, to enter patient data on [place] Safe Act if patient sd1 involuntarily admitted or transferred for SI or HI ordered. 10:24 Confirm accurate psychiatric medication list and times of last dosage ordered. sd1 10:24 Detain Pt Until Medically/PFS Cleared ordered. sd1 10:25 Acetaminophen Level Ordered. EDMS 10:25 Basic Metabolic Profile Ordered. EDMS 10:25 Complete Blood Count Ordered. EDMS 10:25 Drug Eval Toxicology ED Only Ordered. EDMS 10:25 Ethyl Alcohol (ethanol) Ordered. EDMS 10:25 HCG,Serum Qualitative Ordered. EDMS 10:25 Liver Profile Ordered. EDMS 10:25 Salicylate Level Ordered. EDMS 10:25 Thyroid Stimulating Hormone Ordered. EDMS 10:40 HIV Screen, Nursing ordered. sd1 10:41 LITHIUM LEVEL Ordered. EDMS 10:41 VALPROIC ACID (DEPAKOTE) Ordered. EDMS 11:03 Financial registration complete. pm4 11:09 REGULAR DIET PLASTIC BHAKTA+DIET ordered. EDMS 11:09 [facility] Payment Agreement was scanned into Portable [employer] and attached to record. pm4 11:38 Acetaminophen Level Reviewed. sd1 11:38 Complete Blood Count Reviewed. sd1 11:38 Liver Profile Reviewed. sd1 11:38 Salicylate Level Reviewed. sd1 11:38 Thyroid Stimulating Hormone Reviewed. sd1 11:38 LITHIUM LEVEL Reviewed. sd1 11:38 Basic Metabolic Profile Reviewed. sd1 11:38 Drug Eval Toxicology ED Only Reviewed. sd1 11:38 Ethyl Alcohol (ethanol) Reviewed. sd1 11:38 HCG,Serum Qualitative Reviewed. sd1 11:38 VALPROIC ACID (DEPAKOTE) Reviewed. sd1 12:23 PSA Outpatient Referrals was scanned into [employer] and attached to record. ml4 03/30 11:11 T-Sheet-- Draft Copy was scanned into [employer] and attached to record. gb Signatures: Dispatcher Med[employer] EDMS Rosemary Osborn MD MD sd1 José Miguel Andrew,RN RN ms2 Xiomara Nugent, Reg Reg gb Sharda Jimenez, PSA PSA ml4 Kymberly Stallings RN RN hs1 Casey Campbell, Reg Reg pm4 The chart was reviewed and I authenticate all verbal orders and agree with the evaluation and treatment provided.Corrections: (The following items were deleted from the chart) 03/29 10:39 10:37 LITHIUM LEVEL+LAB ordered. EDMS EDMS 10:41 10:38 VALPROIC ACID (DEPAKOTE)+LAB ordered. EDMS EDMS 11:00 10:23 Home Meds: olanzapine 20 mg oral tab 1 tab nightly; hs1 hs1 11:00 10:36 Home Meds: lithium carbonate Oral; hs1 hs1 Attachments: 11:09 MD-EM Payment Agreement pm4 03/30 11:11 T-Sheet-- Draft Copy gb Chart Complete MTDD
== END 2016-03-29 13:09 | disposition home or self-care (01) ==
LOC: M ED 10:11
DX: F20.9 Schizophrenia, unspecified (principal); Z79.899 Other long term (current) drug therapy; Z88.0 Allergy status to penicillin
CPT/HCPCS: 36415; 80048; 80076; 80164; 80178; 80306; 84443; 84703; 85027; 99284; G0480

== ENCOUNTER 2016-04-01 16:38 | Emergency (ER) | payer SELFPAY ==
--- NOTE | 2016-04-01 18:24 | EDDOCDS ---
Physician Documentation [facility] Name: Estella Cruz Age: 26 yrs Sex: Female : 1990 Arrival Date: 04/01/2016 Time: 16:38 Bed 30 Private MD: Disposition: 04/01/16 18:18 Discharged to Home/Self Care. Impression: Schizophrenia. - Condition is Stable. - Discharge Instructions: Schizophrenia. - Prescriptions for Depakote 500 mg Oral Tablet - take 1 tablet by ORAL route every 12 hours; 60 tablet. - Medication Reconciliation, Local Pharmacy Hours form. - [facility] up: [facility] ; When: Call to arrange an appointment. Follow up: As provided by [facility] Referral list; When: Call to arrange an appointment. - Problem is chronic. - Symptoms are unchanged. Historical: - Allergies: PENICILLINS (Unknown); - Home Meds: 1. lithium carbonate 300 mg Oral tab 2 tabs twice a day verified with pharmacy 03/29/16 hs 2. olanzapine 10 mg oral tab 3 tabs nightly verified with pharmacy 03/29/16 hs 3. divalproex 500 mg oral TbEC 1 tab 2 times per day - PMHx: Schizophrenia; - PSHx: none; - Social history: Smoking status: Patient states was never smoker of tobacco. No barriers to communication noted, The patient speaks fluent Slovak, Speaks appropriately for age. - Family history: Not pertinent. - : The pt / caregiver states he / she is not on anticoagulants. Home medication list is obtained from the patient. - Exposure Risk Screening:: None identified. 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 4 in. (162.56 cm) (R); Pain 0/10; 18:22 BP 118 / 64; Pulse 76; Resp 14; Temp 98.5(O); Pulse Ox 99% on R/A; Pain 0/10; js13 16:40 Body Mass Index 30.72 (81.19 kg, 162.56 cm) ct3 MDM: 18:10 Financial registration complete. zo 18:10 [facility] Payment Agreement was scanned into [employer] and attached to record. zo Signatures: Rosemary Osborn MD MD sd1 Silvia Petty, RN Marisa Haq JenniferRN RN js13 The chart was reviewed and I authenticate all verbal orders and agree with the evaluation and treatment provided.Attachments: 18:10 [facility] Payment Agreement zo MTDD
--- NOTE | 2016-04-01 18:24 | EDDOCDS ---
Nurse's Notes [facility] Name: Estella Cruz Age: 26 yrs Sex: Female : 1990 Arrival Date: 04/01/2016 Time: 16:38 Bed 30 Private MD: Diagnosis: Schizophrenia Presentation: 04/01 16:57 Presenting complaint: Patient states: went to [facility] for med refils- depakote, srm lithium, and olanzipine. was admitted in [facility] and had meds dispensed then. Adult Sepsis Screening: The patient does not have new or worsening altered mentation. Patient's respiratory rate is less than 22. Systolic blood pressure is greater than 100. Patient has a qSOFA score of 0- Negative Sepsis Screen. Suicide/Homicide risk assessment- the patient denies having any suicidal and/or homicidal ideations and does not present with any other emotional, behavioral or mental health complaints. 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 Transition of care: patient was not received from another setting of care. 16:57 Acuity: LYNN Level 5 [facility] 16:57 Method Of Arrival: Walkin/Carried/Asstd [facility] Triage Assessment: 17:00 General: Appears in no apparent distress, Behavior is appropriate for age, cooperative. srm Pain: Denies pain. HIV screening NA for this visit Offered previously. 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 lithium carbonate 300 mg Oral tab 2 tabs twice a day verified with pharmacy 03/29/16 hs 2. olanzapine 10 mg oral tab 3 tabs nightly verified with pharmacy 03/29/16 hs 3. divalproex 500 mg oral TbEC 1 tab 2 times per day - PMHx: Schizophrenia; - PSHx: none; - Social history: Smoking status: Patient states was never smoker of tobacco. No barriers to communication noted, The patient speaks fluent Australian, Speaks appropriately for age. - Family history: Not pertinent. - : The pt / caregiver states he / she is not on anticoagulants. Home medication list is obtained from the patient. - Exposure Risk Screening:: None identified. Screenin:23 Screening information is obtained from the patient. Fall risk: No risks identified. js13 Assistance ADL's: requires no assistance with activities of daily living. Abuse/DV Screen: The patient / caregiver reports he/she is: not in a situation that causes fear, pain or injury. Nutritional screening: No deficits noted. Advance Directives: There is no active DNR order. home support is adequate. Assessment: 17:24 General: Appears in no apparent distress, comfortable, Behavior is appropriate for age, js13 cooperative. Pain: Denies pain. Neurological: No deficits noted. Level of Consciousness is awake, alert. Respiratory: Airway is patent Respiratory effort is even, unlabored, Respiratory pattern is regular, symmetrical. Derm: Skin is pink, warm & dry. 18:22 General: Appears in no apparent distress, comfortable, Behavior is appropriate for age, js13 cooperative. Pain: Denies pain. Neurological: Level of Consciousness is awake, alert. Respiratory: Airway is patent Respiratory effort is even, unlabored, Respiratory pattern is regular, symmetrical. Derm: Skin is pink, warm & dry. Vital Signs: 16:40 BP 121 / 67; Pulse 88; Resp 18; Temp 98.7(O); Pulse Ox 100% on R/A; Weight 81.19 kg ct3 (M); Height 5 ft. 4 in. (162.56 cm) (R); Pain 0/10; 18:22 BP 118 / 64; Pulse 76; Resp 14; Temp 98.5(O); Pulse Ox 99% on R/A; Pain 0/10; js13 16:40 Body Mass Index 30.72 (81.19 kg, 162.56 cm) ct3 Vitals: 16:40 Log In Time: April 01, 2016 at 16:38. ct3 ED Course: 16:39 Patient visited by Beth Carter PCA. ct3 16:39 Patient moved to Waiting ct3 16:42 Patient moved to Pre RCE ct3 16:59 Triage Initiated srm 17:00 Patient moved to 30 srm 17:23 The patient / caregiver is instructed regarding the plan of care and ED course. js13 17:23 No IV's were initiated during this patient's visit. No procedures done that require [facility] assistance. 17:25 Patient visited by Juju Bhagat RN. js13 17:52 Rosemary Osborn MD is Attending Physician. sd1 17:52 Patient visited by Rosemary Osborn MD. sd1 18:10 [facility] Payment Agreement was scanned into [employer] and attached to record. zo 18:18 [facility] is Referral Physician. sd1 18:18 Referral list, As provided by PFS is Referral Physician. sd1 Order Results: There are currently no results for this order. Outcome: 18:18 Discharge ordered by Provider. sd1 18:22 Discharge Assessment: Patient awake, alert and oriented x 3. No cognitive and/or js13 functional deficits noted. Patient verbalized understanding of disposition instructions. patient administered narcotics - no. The following High Risk Discharge criteria are identified: None. Discharged to home ambulatory. Condition: stable. Discharge instructions given to patient, Instructed on discharge instructions, follow up and referral plans. medication usage, Demonstrated understanding of instructions, medications, Pt was receptive of discharge instructions/ teaching. Prescriptions given X 1. No special radiology studies were completed. Property :Personal belongings accompany Pt. 18:23 Patient left the ED. js13 Signatures: Rosemary Osborn MD MD sd1 Silvia Petty, RN RN Marisa Wang Consuelo, QUALITY WORKER QUALITY WORKER ct3 Juju Bhagat,RN RN js13 [facility]
--- NOTE | 2016-04-03 19:24 | EDDOCDS ---
Nurse's Notes [facility] Name: Estella Cruz Age: 26 yrs Sex: Female : 1990 Arrival Date: 04/01/2016 Time: 16:38 Bed 30 Private MD: Diagnosis: Schizophrenia Presentation: 04/01 16:57 Presenting complaint: Patient states: went to [facility] for med refils- depakote, srm lithium, and olanzipine. was admitted in [facility] and had meds dispensed then. Adult Sepsis Screening: The patient does not have new or worsening altered mentation. Patient's respiratory rate is less than 22. Systolic blood pressure is greater than 100. Patient has a qSOFA score of 0- Negative Sepsis Screen. Suicide/Homicide risk assessment- the patient denies having any suicidal and/or homicidal ideations and does not present with any other emotional, behavioral or mental health complaints. 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 Transition of care: patient was not received from another setting of care. 16:57 Acuity: LYNN Level 5 [facility] 16:57 Method Of Arrival: Walkin/Carried/Asstd [facility] Triage Assessment: 17:00 General: Appears in no apparent distress, Behavior is appropriate for age, cooperative. srm Pain: Denies pain. HIV screening NA for this visit Offered previously. PCA: 17:00 LMP N/A - Irregular menses srm Historical: - Allergies: PENICILLINS (Unknown); - Home Meds: 1. lithium carbonate 300 mg Oral tab 2 tabs twice a day verified with pharmacy 03/29/16 hs 2. olanzapine 10 mg oral tab 3 tabs nightly verified with pharmacy 03/29/16 hs 3. divalproex 500 mg oral TbEC 1 tab 2 times per day - PMHx: Schizophrenia; - PSHx: none; - Social history: Smoking status: Patient states was never smoker of tobacco. No barriers to communication noted, The patient speaks fluent Filipino, Speaks appropriately for age. - Family history: Not pertinent. - : The pt / caregiver states he / she is not on anticoagulants. Home medication list is obtained from the patient. - Exposure Risk Screening:: None identified. Screenin:23 Screening information is obtained from the patient. Fall risk: No risks identified. js13 Assistance ADL's: requires no assistance with activities of daily living. Abuse/DV Screen: The patient / caregiver reports he/she is: not in a situation that causes fear, pain or injury. Nutritional screening: No deficits noted. Advance Directives: There is no active DNR order. home support is adequate. Assessment: 17:24 General: Appears in no apparent distress, comfortable, Behavior is appropriate for age, js13 cooperative. Pain: Denies pain. Neurological: No deficits noted. Level of Consciousness is awake, alert. Respiratory: Airway is patent Respiratory effort is even, unlabored, Respiratory pattern is regular, symmetrical. Derm: Skin is pink, warm & dry. 18:22 General: Appears in no apparent distress, comfortable, Behavior is appropriate for age, js13 cooperative. Pain: Denies pain. Neurological: Level of Consciousness is awake, alert. Respiratory: Airway is patent Respiratory effort is even, unlabored, Respiratory pattern is regular, symmetrical. Derm: Skin is pink, warm & dry. Social Work Consult: 18:21 Social Work Note: PSA met with pt at bedside. Pt reports she needs help with paying for cs her medications she was DC with from [facility], she also needed to get a script for Depakote, because her 1st appointment with [facility] did not help her with a doctor and she was told to come to [facility] for help. Pt is from this area, left for one year, and has returned. her works at [employer] and she has a baby in the house. Pt needs to be set up with insurance, form given to her by Mejia López. referrals given for DSS, Back to [facility] for nursing care partner assistance. Dc plan back home, transport with her sister. 18:28 Social Work Note: Pt denies having any +SI or wanting to kill anyone at this time. cs Vital Signs: 16:40 BP 121 / 67; Pulse 88; Resp 18; Temp 98.7(O); Pulse Ox 100% on R/A; Weight 81.19 kg ct3 (M); Height 5 ft. 4 in. (162.56 cm) (R); Pain 0/10; 18:22 BP 118 / 64; Pulse 76; Resp 14; Temp 98.5(O); Pulse Ox 99% on R/A; Pain 0/10; js13 16:40 Body Mass Index 30.72 (81.19 kg, 162.56 cm) ct3 Vitals: 16:40 Log In Time: April 01, 2016 at 16:38. ct3 ED Course: 16:39 Patient visited by Beth Carter PCA. ct3 16:39 Patient moved to Waiting ct3 16:42 Patient moved to Pre RCE ct3 16:59 Triage Initiated srm 17:00 Patient moved to 30 srm 17:23 The patient / caregiver is instructed regarding the plan of care and ED course. js13 17:23 No IV's were initiated during this patient's visit. No procedures done that require js13 assistance. 17:25 Patient visited by Juju Bhagat RN. js13 17:52 Rosemary Osborn MD is Attending Physician. sd1 17:52 Patient visited by Rosemary Osborn MD. sd1 18:10 [facility] Payment Agreement was scanned into Cross[employer] and attached to record. zo 18:18 [facility] is Referral Physician. sd1 18:18 Referral list, As provided by [facility] is Referral Physician. sd1 18:57 PSA Outpatient Referrals was scanned into Crosswise and attached to record. 04/02 10:56 T-Sheet-- Draft Copy was scanned into Cross[employer] and attached to record. gb Order Results: There are currently no results for this order. Outcome: 04/01 18:18 Discharge ordered by Provider. sd1 18:22 Discharge Assessment: Patient awake, alert and oriented x 3. No cognitive and/or js13 functional deficits noted. Patient verbalized understanding of disposition instructions. patient administered narcotics - no. The following High Risk Discharge criteria are identified: None. Discharged to home ambulatory. Condition: stable. Discharge instructions given to patient, Instructed on discharge instructions, follow up and referral plans. medication usage, Demonstrated understanding of instructions, medications, Pt was receptive of discharge instructions/ teaching. Prescriptions given X 1. No special radiology studies were completed. Property :Personal belongings accompany Pt. 18:23 Patient left the ED. js13 Signatures: Rosemary Osborn MD MD sd1 Silvia Petty, RN RN srm Jeremie, Adama, PSA PSA Barnhmickiet, Xiomara, Reg Reg gb Sunday, Zoeann zo Beth Carter PCA INTERFACE CONTROL OFFICER ct3 Juju Bhagat,RN RN js13 Chart Complete MTDD
--- NOTE | 2016-04-03 19:24 | EDDOCDS ---
Physician Documentation [facility] Name: Estella Cruz Age: 26 yrs Sex: Female : 1990 Arrival Date: 04/01/2016 Time: 16:38 Bed 30 Private MD: Disposition: 04/01/16 18:18 Discharged to Home/Self Care. Impression: Schizophrenia. - Condition is Stable. - Discharge Instructions: Schizophrenia. - Prescriptions for Depakote 500 mg Oral Tablet - take 1 tablet by ORAL route every 12 hours; 60 tablet. - Medication Reconciliation, Local Pharmacy Hours form. - Follow up: [facility] ; When: Call to arrange an appointment. Follow up: As provided by [facility] Referral list; When: Call to arrange an appointment. - Problem is chronic. - Symptoms are unchanged. Historical: - Allergies: PENICILLINS (Unknown); - Home Meds: 1. lithium carbonate 300 mg Oral tab 2 tabs twice a day verified with pharmacy 03/29/16 hs 2. olanzapine 10 mg oral tab 3 tabs nightly verified with pharmacy 03/29/16 hs 3. divalproex 500 mg oral TbEC 1 tab 2 times per day - PMHx: Schizophrenia; - PSHx: none; - Social history: Smoking status: Patient states was never smoker of tobacco. No barriers to communication noted, The patient speaks fluent Malay, Speaks appropriately for age. - Family history: Not pertinent. - : The pt / caregiver states he / she is not on anticoagulants. Home medication list is obtained from the patient. - Exposure Risk Screening:: None identified. 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 4 in. (162.56 cm) (R); Pain 0/10; 18:22 BP 118 / 64; Pulse 76; Resp 14; Temp 98.5(O); Pulse Ox 99% on R/A; Pain 0/10; js13 16:40 Body Mass Index 30.72 (81.19 kg, 162.56 cm) ct3 MDM: 18:10 Financial registration complete. zo 18:10 [facility] Payment Agreement was scanned into woohoo mobile marketing and attached to record. zo 18:57 PSA Outpatient Referrals was scanned into StumbleUpon[employer] and attached to record. cs 04/02 10:56 T-Sheet-- Draft Copy was scanned into woohoo mobile marketing and attached to record. gb Signatures: Rosemary Osborn MD MD sd1 Silvia Petty, RN RN srm Adama Chao, PSA PSA Xiomara Nugent, Reg Reg Marisa Puckett Jennifer, RN RN js13 The chart was reviewed and I authenticate all verbal orders and agree with the evaluation and treatment provided.Attachments: 04/01 18:10 [facility] Payment Agreement zo 04/02 10:56 T-Sheet-- Draft Copy gb Chart Complete MTDD
--- NOTE | 2016-04-03 19:24 | EDDOCDS ---
Physician Documentation [facility] Name: Estella Cruz Age: 26 yrs Sex: Female : 1990 Arrival Date: 04/01/2016 Time: 16:38 Bed 30 Private MD: Disposition: 04/01/16 18:18 Discharged to Home/Self Care. Impression: Schizophrenia. - Condition is Stable. - Discharge Instructions: Schizophrenia. - Prescriptions for Depakote 500 mg Oral Tablet - take 1 tablet by ORAL route every 12 hours; 60 tablet. - Medication Reconciliation, Local Pharmacy Hours form. - Follow up: [facility] ; When: Call to arrange an appointment. Follow up: As provided by [facility] Referral list; When: Call to arrange an appointment. - Problem is chronic. - Symptoms are unchanged. Historical: - Allergies: PENICILLINS (Unknown); - Home Meds: 1. lithium carbonate 300 mg Oral tab 2 tabs twice a day verified with pharmacy 03/29/16 hs 2. olanzapine 10 mg oral tab 3 tabs nightly verified with pharmacy 03/29/16 hs 3. divalproex 500 mg oral TbEC 1 tab 2 times per day - PMHx: Schizophrenia; - PSHx: none; - Social history: Smoking status: Patient states was never smoker of tobacco. No barriers to communication noted, The patient speaks fluent Welsh, Speaks appropriately for age. - Family history: Not pertinent. - : The pt / caregiver states he / she is not on anticoagulants. Home medication list is obtained from the patient. - Exposure Risk Screening:: None identified. 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 4 in. (162.56 cm) (R); Pain 0/10; 18:22 BP 118 / 64; Pulse 76; Resp 14; Temp 98.5(O); Pulse Ox 99% on R/A; Pain 0/10; js13 16:40 Body Mass Index 30.72 (81.19 kg, 162.56 cm) ct3 MDM: 18:10 Financial registration complete. zo 18:10 [facility] Payment Agreement was scanned into [employer] and attached to record. zo 18:57 PSA Outpatient Referrals was scanned into [employer] and attached to record. cs 04/02 10:56 T-Sheet-- Draft Copy was scanned into [employer] and attached to record. gb Signatures: Rosemary Osborn MD MD sd1 Silvia Petty, RN RN srm Adama Chao, PSA PSA Xiomara Nugent, Reg Reg Marisa Puckett Jennifer, RN RN js13 The chart was reviewed and I authenticate all verbal orders and agree with the evaluation and treatment provided.Attachments: 04/01 18:10 [facility] Payment Agreement zo 04/02 10:56 T-Sheet-- Draft Copy gb Chart Complete MTDD
== END 2016-04-01 18:23 | disposition home or self-care (01) ==
LOC: M ED 16:38
DX: F20.9 Schizophrenia, unspecified (principal); Z79.899 Other long term (current) drug therapy; Z88.0 Allergy status to penicillin

== ENCOUNTER 2016-04-17 14:53 | Emergency (ER) | payer SELFPAY ==
--- NOTE | 2016-04-17 16:29 | EDDOCDS ---
Physician Documentation [facility] Name: Estella Cruz Age: 26 yrs Sex: Female : 1990 Arrival Date: 04/17/2016 Time: 14:53 Bed TR7 Private MD: Other - Complete Info On Cds Disposition: 04/17/16 16:10 Discharged to Home/Self Care. Impression: Acute nasopharyngitis [common cold]. - Condition is Stable. - Discharge Instructions: Upper Respiratory Infection, Adult, Cool Mist Vaporizers, Viral Infections, Xawo-Vb-Qwyk. - Medication Reconciliation, Local Pharmacy Hours form. - Follow up: Private Physician; When: Call to arrange an appointment; Reason: Further diagnostic work-up, Recheck today's complaints, Continuance of care. - Problem is new. - Symptoms are unchanged. Historical: - Allergies: PENICILLINS (Unknown); - Home Meds: 1. divalproex 500 mg oral TbEC 1 tab 2 times per day 2. lithium carbonate 300 mg Oral tab 2 tabs twice a day verified with pharmacy 03/29/16 hs 3. olanzapine 10 mg oral tab 3 tabs nightly verified with pharmacy 03/29/16 hs - PMHx: Bipolar disorder; - PSHx: none; - Social history: Smoking status: Patient uses tobacco products, heavy tobacco smoker. No barriers to communication noted, The patient speaks fluent Polish. - Family history: Not pertinent. - : The pt / caregiver states he / she is not on anticoagulants. Home medication list is obtained from the patient. - Exposure Risk Screening:: None identified. 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 4 in. (162.56 elp cm); Signatures: Bonita RodriguezRN RN rs3 Luis F John PA PA btw Crane, KelsiRN RN kc3 MTDD
--- NOTE | 2016-04-17 16:29 | EDDOCDS ---
Nurse's Notes [facility] Name: Estella Cruz Age: 26 yrs Sex: Female : 1990 Arrival Date: 04/17/2016 Time: 14:53 Bed TR7 Private MD: Other - Complete Info On Cds Diagnosis: Acute nasopharyngitis [common cold] Presentation: 04/17 15:10 Presenting complaint: Patient states: cough, runny nose for a week. has not taken any rs3 meds. Adult Sepsis Screening: The patient does not have new or worsening altered mentation. Patient's respiratory rate is less than 22. Systolic blood pressure is greater than 100. Patient has a qSOFA score of 0- Negative Sepsis Screen. Suicide/Homicide risk assessment- the patient denies having any suicidal and/or homicidal ideations and does not present with any other emotional, behavioral or mental health complaints. Status: Patient is not a industrial service technician or dependent. Transition of care: patient was not received from another setting of care. 15:10 Acuity: LYNN Level 4 rs3 15:10 Method Of Arrival: Walkin/Carried/Asstd rs3 Triage Assessment: 15:11 General: Appears in no apparent distress. Pain: Denies pain. HIV screening NA for this rs3 visit Offered previously. 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 divalproex 500 mg oral TbEC 1 tab 2 times per day 2. lithium carbonate 300 mg Oral tab 2 tabs twice a day verified with pharmacy 03/29/16 hs 3. olanzapine 10 mg oral tab 3 tabs nightly verified with pharmacy 03/29/16 hs - PMHx: Bipolar disorder; - PSHx: none; - Social history: Smoking status: Patient uses tobacco products, heavy tobacco smoker. No barriers to communication noted, The patient speaks fluent Zambian. - Family history: Not pertinent. - : The pt / caregiver states he / she is not on anticoagulants. Home medication list is obtained from the patient. - Exposure Risk Screening:: None identified. Screenin:27 Screening information is obtained from the patient. Fall risk: No risks identified. kc3 Assistance ADL's: requires no assistance with activities of daily living. Abuse/DV Screen: The patient / caregiver reports he/she is: not in a situation that causes fear, pain or injury. Nutritional screening: No deficits noted. Advance Directives: Currently, there is no health care proxy. home support is adequate. Assessment: 16:26 General: Appears in no apparent distress, comfortable, Behavior is appropriate for age, kc3 cooperative. Neurological: Level of Consciousness is awake, alert, obeys commands. Respiratory: Airway is patent Respiratory effort is even, unlabored, Reports cough that is. Derm: Skin is normal. Vital Signs: 14:55 BP 157 / 81; Pulse 104; Resp 16; Temp 98.9; Pulse Ox 99% ; Height 5 ft. 4 in. (162.56 elp cm); Vitals: 14:55 Log In Time: April 17, 2016 at 14:52. el ED Course: 14:55 Patient visited by Yolande Palacio PCA. elp 14:55 Other - Complete Info On Cds is Private Physician. elp 14:55 Patient visited by Yolande Palacio PCA. elp 14:55 Patient moved to Waiting elp 14:55 Patient moved to Pre RCE elp 15:10 Triage Initiated rs3 15:47 Patient moved to D1 ms18 15:59 Luis F [facility] btw 15:59 Medina Strong MD is Attending Physician. btw 15:59 Patient visited by Luis F John PA. btw 16:24 Patient moved to TR7 kc3 16:28 The patient / caregiver is instructed regarding the plan of care and ED course. kc3 16:28 No IV's were initiated during this patient's visit. No procedures done that require kc3 assistance. Order Results: There are currently no results for this order. Outcome: 16:10 Discharge ordered by Provider. btw 16:27 Discharge Assessment: Patient awake, alert and oriented x 3. No cognitive and/or kc3 functional deficits noted. Patient verbalized understanding of disposition instructions. patient administered narcotics - no. The following High Risk Discharge criteria are identified: None. Discharged to home ambulatory. Condition: stable. Discharge instructions given to patient, Instructed on discharge instructions, follow up and referral plans. Demonstrated understanding of instructions, Pt was receptive of discharge instructions/ teaching. No special radiology studies were completed. Property :Personal belongings accompany Pt. 16:28 Patient left the ED. kc3 Signatures: Bonita Rodriguez,RN RN rs3 Luis F John PA PA btw Yolande Palacio, SLOT MACHINE REPAIRER SLOT MACHINE REPAIRER batshevap Nidhi Smith,RN RN ms18 Eva SweeneyRN RN kc3 MTDD
--- NOTE | 2016-04-19 17:29 | EDDOCDS ---
Nurse's Notes [facility] Name: Estella Cruz Age: 26 yrs Sex: Female : 1990 Arrival Date: 04/17/2016 Time: 14:53 Bed TR7 Private MD: Other - Complete Info On Cds Diagnosis: Acute nasopharyngitis [common cold] Presentation: 04/17 15:10 Presenting complaint: Patient states: cough, runny nose for a week. has not taken any rs3 meds. Adult Sepsis Screening: The patient does not have new or worsening altered mentation. Patient's respiratory rate is less than 22. Systolic blood pressure is greater than 100. Patient has a qSOFA score of 0- Negative Sepsis Screen. Suicide/Homicide risk assessment- the patient denies having any suicidal and/or homicidal ideations and does not present with any other emotional, behavioral or mental health complaints. Status: Patient is not a technical services coordinator or dependent. Transition of care: patient was not received from another setting of care. 15:10 Acuity: LYNN Level 4 rs3 15:10 Method Of Arrival: Walkin/Carried/Asstd rs3 Triage Assessment: 15:11 General: Appears in no apparent distress. Pain: Denies pain. HIV screening NA for this rs3 visit Offered previously. 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 divalproex 500 mg oral TbEC 1 tab 2 times per day 2. lithium carbonate 300 mg Oral tab 2 tabs twice a day verified with pharmacy 03/29/16 hs 3. olanzapine 10 mg oral tab 3 tabs nightly verified with pharmacy 03/29/16 hs - PMHx: Bipolar disorder; - PSHx: none; - Social history: Smoking status: Patient uses tobacco products, heavy tobacco smoker. No barriers to communication noted, The patient speaks fluent Estonian. - Family history: Not pertinent. - : The pt / caregiver states he / she is not on anticoagulants. Home medication list is obtained from the patient. - Exposure Risk Screening:: None identified. Screenin:27 Screening information is obtained from the patient. Fall risk: No risks identified. kc3 Assistance ADL's: requires no assistance with activities of daily living. Abuse/DV Screen: The patient / caregiver reports he/she is: not in a situation that causes fear, pain or injury. Nutritional screening: No deficits noted. Advance Directives: Currently, there is no health care proxy. home support is adequate. Assessment: 16:26 General: Appears in no apparent distress, comfortable, Behavior is appropriate for age, kc3 cooperative. Neurological: Level of Consciousness is awake, alert, obeys commands. Respiratory: Airway is patent Respiratory effort is even, unlabored, Reports cough that is. Derm: Skin is normal. Vital Signs: 14:55 BP 157 / 81; Pulse 104; Resp 16; Temp 98.9; Pulse Ox 99% ; Height 5 ft. 4 in. (162.56 elp cm); Vitals: 14:55 Log In Time: April 17, 2016 at 14:52. elp ED Course: 14:55 Patient visited by Yolande Palacio PCA. elp 14:55 Other - Complete Info On Cds is Private Physician. elp 14:55 Patient visited by Yloande Palacio PCA. elp 14:55 Patient moved to Waiting elp 14:55 Patient moved to Pre RCE elp 15:10 Triage Initiated rs3 15:47 Patient moved to D1 ms18 15:59 Luis F [facility] btw 15:59 Medina Strong MD is Attending Physician. btw 15:59 Patient visited by Luis F John PA. btw 16:24 Patient moved to TR7 kc3 16:28 The patient / caregiver is instructed regarding the plan of care and ED course. kc3 16:28 No IV's were initiated during this patient's visit. No procedures done that require kc3 assistance. 18:02 [facility] Payment Agreement was scanned into [employer] and attached to record. [email or web address] 04/18 10:36 T-Sheet-- Draft Copy was scanned into [employer] and attached to record. gb Order Results: There are currently no results for this order. Outcome: 04/17 16:10 Discharge ordered by Provider. btw 16:27 Discharge Assessment: Patient awake, alert and oriented x 3. No cognitive and/or kc3 functional deficits noted. Patient verbalized understanding of disposition instructions. patient administered narcotics - no. The following High Risk Discharge criteria are identified: None. Discharged to home ambulatory. Condition: stable. Discharge instructions given to patient, Instructed on discharge instructions, follow up and referral plans. Demonstrated understanding of instructions, Pt was receptive of discharge instructions/ teaching. No special radiology studies were completed. Property :Personal belongings accompany Pt. 16:28 Patient left the ED. [email or web address] Signatures: Xiomara Nugent, Reg Reg gb Bonita Rodriguez,RN RN rs3 Luis F John PA PA btw Yolande Palacio, DURGA FLANGER Nidhi CohenRN RN ms18 Eva SweeneyRN RN kc3 Jocelyne Salas, Reg Reg ks16 Chart Complete MTDD
--- NOTE | 2016-04-19 17:29 | EDDOCDS ---
Physician Documentation [facility] Name: Estella Cruz Age: 26 yrs Sex: Female : 1990 Arrival Date: 04/17/2016 Time: 14:53 Bed TR7 Private MD: Other - Complete Info On Cds Disposition: 04/17/16 16:10 Discharged to Home/Self Care. Impression: Acute nasopharyngitis [common cold]. - Condition is Stable. - Discharge Instructions: Upper Respiratory Infection, Adult, Cool Mist Vaporizers, Viral Infections, Ksgp-Dv-Jmsd. - Medication Reconciliation, Local Pharmacy Hours form. - Follow up: Private Physician; When: Call to arrange an appointment; Reason: Further diagnostic work-up, Recheck today's complaints, Continuance of care. - Problem is new. - Symptoms are unchanged. Historical: - Allergies: PENICILLINS (Unknown); - Home Meds: 1. divalproex 500 mg oral TbEC 1 tab 2 times per day 2. lithium carbonate 300 mg Oral tab 2 tabs twice a day verified with pharmacy 03/29/16 hs 3. olanzapine 10 mg oral tab 3 tabs nightly verified with pharmacy 03/29/16 hs - PMHx: Bipolar disorder; - PSHx: none; - Social history: Smoking status: Patient uses tobacco products, heavy tobacco smoker. No barriers to communication noted, The patient speaks fluent Kinyarwanda. - Family history: Not pertinent. - : The pt / caregiver states he / she is not on anticoagulants. Home medication list is obtained from the patient. - Exposure Risk Screening:: None identified. 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 4 in. (162.56 elp cm); MDM: 18:01 Financial registration complete. [facility] 18:02 [facility] Payment Agreement was scanned into Brows[employer] and attached to record. 04/18 10:36 T-Sheet-- Draft Copy was scanned into Brows[employer] and attached to record. gb Signatures: Xiomara Nugent, Reg Reg Bonita Jean RN RN rs3 Luis F John PA PA btw Eva SweeneyRN RN kc3 Jocelyne Salas, Reg Reg ks16 The chart was reviewed and I authenticate all verbal orders and agree with the evaluation and treatment provided.Attachments: 04/17 18:02 [facility] Payment Agreement [email or web address] 04/18 10:36 T-Sheet-- Draft Copy gb Chart Complete MTDD
--- NOTE | 2016-04-19 17:29 | EDDOCDS ---
Physician Documentation [facility] Name: Estella Cruz Age: 26 yrs Sex: Female : 1990 Arrival Date: 04/17/2016 Time: 14:53 Bed TR7 Private MD: Other - Complete Info On Cds Disposition: 04/17/16 16:10 Discharged to Home/Self Care. Impression: Acute nasopharyngitis [common cold]. - Condition is Stable. - Discharge Instructions: Upper Respiratory Infection, Adult, Cool Mist Vaporizers, Viral Infections, Flmd-Vt-Hlre. - Medication Reconciliation, Local Pharmacy Hours form. - Follow up: Private Physician; When: Call to arrange an appointment; Reason: Further diagnostic work-up, Recheck today's complaints, Continuance of care. - Problem is new. - Symptoms are unchanged. Historical: - Allergies: PENICILLINS (Unknown); - Home Meds: 1. divalproex 500 mg oral TbEC 1 tab 2 times per day 2. lithium carbonate 300 mg Oral tab 2 tabs twice a day verified with pharmacy 03/29/16 hs 3. olanzapine 10 mg oral tab 3 tabs nightly verified with pharmacy 03/29/16 hs - PMHx: Bipolar disorder; - PSHx: none; - Social history: Smoking status: Patient uses tobacco products, heavy tobacco smoker. No barriers to communication noted, The patient speaks fluent Spanish. - Family history: Not pertinent. - : The pt / caregiver states he / she is not on anticoagulants. Home medication list is obtained from the patient. - Exposure Risk Screening:: None identified. 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 4 in. (162.56 elp cm); MDM: 18:01 Financial registration complete. [facility] 18:02 [facility] Payment Agreement was scanned into Ev[employer] and attached to record. 04/18 10:36 T-Sheet-- Draft Copy was scanned into Ev[employer] and attached to record. gb Signatures: Xiomara Nugent, Reg Reg Bonita Jean RN RN rs3 Luis F John PA PA btw Eva SweeneyRN RN kc3 Jocelyne Salas, Reg Reg ks16 The chart was reviewed and I authenticate all verbal orders and agree with the evaluation and treatment provided.Attachments: 04/17 18:02 [facility] Payment Agreement [email or web address] 04/18 10:36 T-Sheet-- Draft Copy gb Chart Complete MTDD
== END 2016-04-17 16:28 | disposition home or self-care (01) ==
LOC: M ED 14:53
DX: J06.9 Acute upper respiratory infection, unspecified (principal); F31.9 Bipolar disorder, unspecified; Z79.899 Other long term (current) drug therapy; Z88.0 Allergy status to penicillin

== ENCOUNTER 2016-04-19 16:08 | Emergency (ER) | payer MEDICAID, SELFPAY ==
--- NOTE | 2016-04-19 20:16 | EDDOCDS ---
Physician Documentation [facility] Name: Estella Cruz Age: 26 yrs Sex: Female : 1990 Arrival Date: 04/19/2016 Time: 16:08 Bed TR7 Private MD: NO PRIMARY PHYSICIAN, . Disposition: 04/19/16 19:52 Discharged to Home/Self Care. Impression: Encounter for issue of repeat prescription - ZYPREXA AND LITHIUM, DENIED. - Condition is Stable. - Discharge Instructions: Medicine Refill at the Emergency Department. - Medication Reconciliation, Local Pharmacy Hours form. - Follow up: Private Physician; When: 1 - 2 days; Reason: Recheck today's complaints, Continuance of care. - Problem is new. - Symptoms are unchanged. - Notes: PLEASE KEEP YOUR SCHEDULED APPOINTMENT, SEE IF YOU CAN GET ON CANCELATION LIST Historical: - Allergies: PENICILLINS (Unknown); - Home Meds: 1. divalproex 500 mg oral TbEC 1 tab 2 times per day 2. lithium carbonate 300 mg Oral tab 2 tabs twice a day verified with pharmacy 03/29/16 hs 3. olanzapine 10 mg oral tab 3 tabs nightly verified with pharmacy 03/29/16 hs - PMHx: Bipolar disorder; Schizophrenia; - PSHx: none; - Social history: Smoking status: Patient uses tobacco products, current every day smoker. No barriers to communication noted, The patient speaks fluent Mongolian, Speaks appropriately for age. - Family history: Not pertinent. - : The pt / caregiver states he / she is not on anticoagulants. Home medication list is obtained from the patient. - Exposure Risk Screening:: None identified. 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 4 in. (162.56 cm) (R); Pain 0/10; 16:10 Body Mass Index 30.90 (81.65 kg, 162.56 cm) gr2 MDM: 18:54 Consult PFS/PSA/Integrated Specialist ordered. ck7 19:19 Financial registration complete. gb 19:27 [facility] Payment Agreement was scanned into Spangle and attached to record. gb 20:10 Consult PFS/PSA/Integrated Specialist complete. ld5 Signatures: Silvia Petty, RN RN [facility] Xiomara Nugent, Mario Reg Marcelina Andersen RN RN ld5 Murali Quinn, RPA-C RPA-Cck7 The chart was reviewed and I authenticate all verbal orders and agree with the evaluation and treatment provided.Attachments: 19:27 [facility] Payment Agreement gb MTDD
--- NOTE | 2016-04-19 20:16 | EDDOCDS ---
Nurse's Notes [facility] Name: Estella Cruz Age: 26 yrs Sex: Female : 1990 Arrival Date: 04/19/2016 Time: 16:08 Bed TR7 Private MD: NO PRIMARY PHYSICIAN, . Diagnosis: Encounter for issue of repeat prescription-ZYPREXA AND LITHIUM, DENIED Presentation: 04/19 16:20 Presenting complaint: not found in waiting room. [facility] 16:26 Presenting complaint: Patient states: im out of my medication. i had an appt on mar 22 [facility] but they had ti reschedule- no appt set at this tijme. i need olanzapine and lithium refills. Adult Sepsis Screening: The patient does not have new or worsening altered mentation. Patient's respiratory rate is less than 22. Systolic blood pressure is greater than 100. Patient has a qSOFA score of 0- Negative Sepsis Screen. Suicide/Homicide risk assessment- the patient denies having any suicidal and/or homicidal ideations and does not present with any other emotional, behavioral or mental health complaints. Status: Patient is not a telegraph service rater or dependent. Transition of care: patient was not received from another setting of care. 16:26 Acuity: LYNN Level 5 [facility] 16:26 Method Of Arrival: Walkin/Carried/Asstd [facility] Triage Assessment: 16:28 General: Appears in no apparent distress, Behavior is appropriate for age, cooperative. srm Pain: Denies pain. HIV screening NA for this visit Offered previously. 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 divalproex 500 mg oral TbEC 1 tab 2 times per day 2. lithium carbonate 300 mg Oral tab 2 tabs twice a day verified with pharmacy 03/29/16 hs 3. olanzapine 10 mg oral tab 3 tabs nightly verified with pharmacy 03/29/16 hs - PMHx: Bipolar disorder; Schizophrenia; - PSHx: none; - Social history: Smoking status: Patient uses tobacco products, current every day smoker. No barriers to communication noted, The patient speaks fluent Czech, Speaks appropriately for age. - Family history: Not pertinent. - : The pt / caregiver states he / she is not on anticoagulants. Home medication list is obtained from the patient. - Exposure Risk Screening:: None identified. Screenin:10 Screening information is obtained from the patient. Fall risk: No risks identified. ld5 Assistance ADL's: requires no assistance with activities of daily living. Abuse/DV Screen: The patient / caregiver reports he/she is: not in a situation that causes fear, pain or injury. Nutritional screening: No deficits noted. Advance Directives: Currently, there is no health care proxy. home support is adequate. Assessment: 20:10 General: First contact with pt. This RN in to room to discharge pt. Pt asking this RN ld5 to speak with her sister on the phone. Sister stated pt needs the medication and she has been trying to get into a doctor for medication but has been unable to. Sister very adamant about pt receiving the medications. This RN explained to pt's sister that pt had been seen by an ER provider and PSA and decisions were made at that time. While this RN was speaking with sister, provider walked by and pt asked him to come into room. Pt spoke with provider about medication. Again pt was told that situation was discussed with ER physician and decisions were final. Pt signed discharge paperwork and left ER. Social Work Consult: 19:52 Social Work Note: PSA met with pt at bedside, pt stated she still has not seen her psychiatrist for her refill since the last time she came in for a refill. Pt reports she is running out and her provider changed her appointment again because she did not get the reminder call of her appointment, she missed it. Now they are telling her Mar 3rd. Pt reports her mother told her to go back to [facility]. Pt has a sister and brother in law in the area for transportation and is staying a snf for now with the hope of going the [email or web address], and she has court for custody tomorrow. RICCARDO Pereyra stated to pt we would continue to refill medications for pt per dr. Duncan. pt denies hearing voices, being suicidal or wishing to kill anyone. Support extended. Vital Signs: 16:10 BP 131 / 72; Pulse 92; Resp 18 S; Temp 98.3(O); Pulse Ox 100% on R/A; Weight 81.65 kg gr2 (R); Height 5 ft. 4 in. (162.56 cm) (R); Pain 0/10; 16:10 Body Mass Index 30.90 (81.65 kg, 162.56 cm) gr2 Vitals: 16:10 Log In Time: April 19, 2016 at 16:10. gr2 ED Course: 16:09 Patient visited by Gopal Kaufman. gr2 16:09 Patient moved to Waiting gr2 16:10 NO PRIMARY PHYSICIAN, . is Private Physician. gr2 16:11 Patient visited by Gopal Kaufman. gr2 16:11 Patient moved to Pre RCE gr2 16:27 Triage Initiated srm 18:17 Patient moved to Triage 1 srm 18:50 Murali Quinn RPA-C is PHCP. ck7 18:50 Geovanny Narvaez MD is Attending Physician. ck7 18:50 Patient visited by Murali Quinn RPA-C. ck7 19:15 Patient moved to PR1 / 25 dsf 19:26 Patient visited by Murali Quinn RPA-C. ck7 19:27 [facility] Payment Agreement was scanned into [employer] and attached to record. gb 20:10 Patient moved to TR7 ld5 20:10 The patient / caregiver is instructed regarding the plan of care and ED course. Patient ld5 has correct armband on for positive identification. 20:10 No IV's were initiated during this patient's visit. No procedures done that require ld5 assistance. 20:15 Patient visited by Marcelina Andersen RN. ld5 Order Results: There are currently no results for this order. Outcome: 19:52 Discharge ordered by Provider. ck7 20:10 Discharge Assessment: Patient awake, alert and oriented x 3. No cognitive and/or ld5 functional deficits noted. Patient verbalized understanding of disposition instructions. patient administered narcotics - no. The following High Risk Discharge criteria are identified: None. Discharged to home ambulatory. Condition: stable. Discharge instructions given to patient, Instructed on discharge instructions, follow up and referral plans. Demonstrated understanding of instructions, Pt was receptive of discharge instructions/ teaching. No special radiology studies were completed. Property :Personal belongings accompany Pt. 20:15 Patient left the ED. ld5 Signatures: iSlvia Petty RN RN srm Adama Chao, PSA PSA cs Xiomara Nugent, Reg Reg Marcelina Andersen RN RN ld5 FullerNuzhat,RN RN dsf Murali Quinn, RPA-C RPA-Cck7 Gopal Kaufman2 MTDD
--- NOTE | 2016-04-21 21:16 | EDDOCDS ---
Physician Documentation [facility] Name: Estella Cruz Age: 26 yrs Sex: Female : 1990 Arrival Date: 04/19/2016 Time: 16:08 Bed TR7 Private MD: NO PRIMARY PHYSICIAN, . Disposition: 04/19/16 19:52 Discharged to Home/Self Care. Impression: Encounter for issue of repeat prescription - ZYPREXA AND LITHIUM, DENIED. - Condition is Stable. - Discharge Instructions: Medicine Refill at the Emergency Department. - Medication Reconciliation, Local Pharmacy Hours form. - Follow up: Private Physician; When: 1 - 2 days; Reason: Recheck today's complaints, Continuance of care. - Problem is new. - Symptoms are unchanged. - Notes: PLEASE KEEP YOUR SCHEDULED APPOINTMENT, SEE IF YOU CAN GET ON CANCELATION LIST Historical: - Allergies: PENICILLINS (Unknown); - Home Meds: 1. divalproex 500 mg oral TbEC 1 tab 2 times per day 2. lithium carbonate 300 mg Oral tab 2 tabs twice a day verified with pharmacy 03/29/16 hs 3. olanzapine 10 mg oral tab 3 tabs nightly verified with pharmacy 03/29/16 hs - PMHx: Bipolar disorder; Schizophrenia; - PSHx: none; - Social history: Smoking status: Patient uses tobacco products, current every day smoker. No barriers to communication noted, The patient speaks fluent Thai, Speaks appropriately for age. - Family history: Not pertinent. - : The pt / caregiver states he / she is not on anticoagulants. Home medication list is obtained from the patient. - Exposure Risk Screening:: None identified. 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 4 in. (162.56 cm) (R); Pain 0/10; 16:10 Body Mass Index 30.90 (81.65 kg, 162.56 cm) gr2 MDM: 18:54 Consult PFS/PSA/Plaster Die Maker ordered. ck7 19:19 Financial registration complete. gb 19:27 [facility] Payment Agreement was scanned into [employer] and attached to record. gb 20:10 Consult PFS/PSA/Plaster Die Maker complete. ld5 04/20 10:16 T-Sheet-- Draft Copy was scanned into [employer] and attached to record. gb Signatures: Silvia Petty, RN RN srm Xiomara Nugent, Reg Reg gb Marcelina Andersen RN RN ld5 Murali Quinn, RPA-C RPA-Cck7 The chart was reviewed and I authenticate all verbal orders and agree with the evaluation and treatment provided.Attachments: 04/19 19:27 [facility] Payment Agreement gb 04/20 10:16 T-Sheet-- Draft Copy gb Chart Complete MTDD
--- NOTE | 2016-04-21 21:16 | EDDOCDS ---
Nurse's Notes [facility] Name: Estella Cruz Age: 26 yrs Sex: Female : 1990 Arrival Date: 04/19/2016 Time: 16:08 Bed TR7 Private MD: NO PRIMARY PHYSICIAN, . Diagnosis: Encounter for issue of repeat prescription-ZYPREXA AND LITHIUM, DENIED Presentation: 04/19 16:20 Presenting complaint: not found in waiting room. [facility] 16:26 Presenting complaint: Patient states: im out of my medication. i had an appt on mar 22 [facility] but they had ti reschedule- no appt set at this tijme. i need olanzapine and lithium refills. Adult Sepsis Screening: The patient does not have new or worsening altered mentation. Patient's respiratory rate is less than 22. Systolic blood pressure is greater than 100. Patient has a qSOFA score of 0- Negative Sepsis Screen. Suicide/Homicide risk assessment- the patient denies having any suicidal and/or homicidal ideations and does not present with any other emotional, behavioral or mental health complaints. Status: Patient is not a medical service representative or dependent. Transition of care: patient was not received from another setting of care. 16:26 Acuity: LYNN Level 5 [facility] 16:26 Method Of Arrival: Walkin/Carried/Asstd [facility] Triage Assessment: 16:28 General: Appears in no apparent distress, Behavior is appropriate for age, cooperative. srm Pain: Denies pain. HIV screening NA for this visit Offered previously. 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 divalproex 500 mg oral TbEC 1 tab 2 times per day 2. lithium carbonate 300 mg Oral tab 2 tabs twice a day verified with pharmacy 03/29/16 hs 3. olanzapine 10 mg oral tab 3 tabs nightly verified with pharmacy 03/29/16 hs - PMHx: Bipolar disorder; Schizophrenia; - PSHx: none; - Social history: Smoking status: Patient uses tobacco products, current every day smoker. No barriers to communication noted, The patient speaks fluent Syriac, Speaks appropriately for age. - Family history: Not pertinent. - : The pt / caregiver states he / she is not on anticoagulants. Home medication list is obtained from the patient. - Exposure Risk Screening:: None identified. Screenin:10 Screening information is obtained from the patient. Fall risk: No risks identified. ld5 Assistance ADL's: requires no assistance with activities of daily living. Abuse/DV Screen: The patient / caregiver reports he/she is: not in a situation that causes fear, pain or injury. Nutritional screening: No deficits noted. Advance Directives: Currently, there is no health care proxy. home support is adequate. Assessment: 20:10 General: First contact with pt. This RN in to room to discharge pt. Pt asking this RN ld5 to speak with her sister on the phone. Sister stated pt needs the medication and she has been trying to get into a doctor for medication but has been unable to. Sister very adamant about pt receiving the medications. This RN explained to pt's sister that pt had been seen by an ER provider and PSA and decisions were made at that time. While this RN was speaking with sister, provider walked by and pt asked him to come into room. Pt spoke with provider about medication. Again pt was told that situation was discussed with ER physician and decisions were final. Pt signed discharge paperwork and left ER. 20:47 General: patient brother in law returned to waiting area to speak with staff. States [facility] patient has a court date tomorrow that when she takes her meds she does OK. discussed nature of psychiatric medications requiring consistent use and consistent follow up, discussed plan of care which was determined by provider in conjunction with ED Physician and PFS staff. Patient sister approached conversation and asking same questions, reinforced treatment plan. Sister states "I think you're being very rude" brother in law states "we'll just go and get a field irrigation worker and find someone to complain to." Family has been given number for Patient Advocate. Conversation witnessed by Ne, tyron staff. Social Work Consult: 19:52 Social Work Note: PSA met with pt at bedside, pt stated she still has not seen her psychiatrist for her refill since the last time she came in for a refill. Pt reports she is running out and her provider changed her appointment again because she did not get the reminder call of her appointment, she missed it. Now they are telling her Mar 3rd. Pt reports her mother told her to go back to [facility]. Pt has a sister and brother in law in the area for transportation and is staying a [facility] for now with the hope of going the [address] [place] [address], and she has court for custody tomorrow. RICCARDO Pereyra stated to pt we would continue to refill medications for pt per dr. Duncan. pt denies hearing voices, being suicidal or wishing to kill anyone. Support extended. Vital Signs: 16:10 BP 131 / 72; Pulse 92; Resp 18 S; Temp 98.3(O); Pulse Ox 100% on R/A; Weight 81.65 kg gr2 (R); Height 5 ft. 4 in. (162.56 cm) (R); Pain 0/10; 16:10 Body Mass Index 30.90 (81.65 kg, 162.56 cm) gr2 Vitals: 16:10 Log In Time: April 19, 2016 at 16:10. gr2 ED Course: 16:09 Patient visited by Gopal Kaufman. gr2 16:09 Patient moved to Waiting gr2 16:10 NO PRIMARY PHYSICIAN, . is Private Physician. gr2 16:11 Patient visited by Gopal Kaufman. gr2 16:11 Patient moved to Pre RCE gr2 16:27 Triage Initiated srm 18:17 Patient moved to Triage 1 srm 18:50 Murali Quinn RPA-C [facility]. ck7 18:50 Geovanny Narvaez MD is Attending Physician. ck7 18:50 Patient visited by Murali Quinn RPA-C. ck7 19:15 Patient moved to PR1 / 25 dsf 19:26 Patient visited by Murali Quinn RPA-C. ck7 19:27 [facility] Payment Agreement was scanned into [employer] and attached to record. gb 20:10 Patient moved to TR7 ld5 20:10 The patient / caregiver is instructed regarding the plan of care and ED course. Patient ld5 has correct armband on for positive identification. 20:10 No IV's were initiated during this patient's visit. No procedures done that require ld5 assistance. 20:15 Patient visited by Marcelina Andersen RN. ld5 04/20 10:16 T-Sheet-- Draft Copy was scanned into [employer] and attached to record. gb Order Results: There are currently no results for this order. Outcome: 04/19 19:52 Discharge ordered by Provider. ck7 20:10 Discharge Assessment: Patient awake, alert and oriented x 3. No cognitive and/or ld5 functional deficits noted. Patient verbalized understanding of disposition instructions. patient administered narcotics - no. The following High Risk Discharge criteria are identified: None. Discharged to home ambulatory. Condition: stable. Discharge instructions given to patient, Instructed on discharge instructions, follow up and referral plans. Demonstrated understanding of instructions, Pt was receptive of discharge instructions/ teaching. No special radiology studies were completed. Property :Personal belongings accompany Pt. 20:15 Patient left the ED. ld5 Signatures: Silvia Petty, RN RN srm Adama Chao, PSA PSA cs Xiomara Nugent, Mario Reg Marcelina Garcia RN RN ld5 Nuzhat Cunningham,RN RN Bel Lynn,RN RN [facility] Murali Quinn, RPA-C RPA-Cck7 Gopal Kaufman gr2 Chart Complete [facility]
--- NOTE | 2016-04-21 21:16 | EDDOCDS ---
Physician Documentation [facility] Name: Estella Cruz Age: 26 yrs Sex: Female : 1990 Arrival Date: 04/19/2016 Time: 16:08 Bed TR7 Private MD: NO PRIMARY PHYSICIAN, . Disposition: 04/19/16 19:52 Discharged to Home/Self Care. Impression: Encounter for issue of repeat prescription - ZYPREXA AND LITHIUM, DENIED. - Condition is Stable. - Discharge Instructions: Medicine Refill at the Emergency Department. - Medication Reconciliation, Local Pharmacy Hours form. - Follow up: Private Physician; When: 1 - 2 days; Reason: Recheck today's complaints, Continuance of care. - Problem is new. - Symptoms are unchanged. - Notes: PLEASE KEEP YOUR SCHEDULED APPOINTMENT, SEE IF YOU CAN GET ON CANCELATION LIST Historical: - Allergies: PENICILLINS (Unknown); - Home Meds: 1. divalproex 500 mg oral TbEC 1 tab 2 times per day 2. lithium carbonate 300 mg Oral tab 2 tabs twice a day verified with pharmacy 03/29/16 hs 3. olanzapine 10 mg oral tab 3 tabs nightly verified with pharmacy 03/29/16 hs - PMHx: Bipolar disorder; Schizophrenia; - PSHx: none; - Social history: Smoking status: Patient uses tobacco products, current every day smoker. No barriers to communication noted, The patient speaks fluent Romansh, Speaks appropriately for age. - Family history: Not pertinent. - : The pt / caregiver states he / she is not on anticoagulants. Home medication list is obtained from the patient. - Exposure Risk Screening:: None identified. 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 4 in. (162.56 cm) (R); Pain 0/10; 16:10 Body Mass Index 30.90 (81.65 kg, 162.56 cm) gr2 MDM: 18:54 Consult PFS/PSA/Pediatric Nurse Practitioner ordered. ck7 19:19 Financial registration complete. gb 19:27 [facility] Payment Agreement was scanned into [employer] and attached to record. gb 20:10 Consult PFS/PSA/Pediatric Nurse Practitioner complete. ld5 04/20 10:16 T-Sheet-- Draft Copy was scanned into [employer] and attached to record. gb Signatures: Silvia Petty, RN RN srm Xiomara Nugent, Reg Reg gb Marcelina Andersen RN RN ld5 Murali Quinn, RPA-C RPA-Cck7 The chart was reviewed and I authenticate all verbal orders and agree with the evaluation and treatment provided.Attachments: 04/19 19:27 [facility] Payment Agreement gb 04/20 10:16 T-Sheet-- Draft Copy gb Chart Complete MTDD
== END 2016-04-19 20:15 | disposition home or self-care (01) ==
LOC: M ED 16:08
DX: Z76.0 Encounter for issue of repeat prescription (principal); F31.9 Bipolar disorder, unspecified; F20.9 Schizophrenia, unspecified; F17.210 Nicotine dependence, cigarettes, uncomplicated; Z79.899 Other long term (current) drug therapy; Z88.0 Allergy status to penicillin

== ENCOUNTER 2016-05-03 04:35 | Emergency (ER) | payer MEDICAID, OTHER, SELFPAY ==
--- NOTE | 2016-05-03 07:21 | EDDOCDS ---
Nurse's Notes [facility] Name: Estella Cruz Age: 26 yrs Sex: Female : 1990 Arrival Date: 05/03/2016 Time: 04:35 Bed I2 / M2 Private MD: Branden Dalton Diagnosis: Hematuria;Encounter for issue of repeat prescription Presentation: 05/03 04:44 Presenting complaint: Patient states: blood in urine and isn't supposed to get period ko2 until the of this month. Pt also needs a refill on olanzapine. Suicide/Homicide risk assessment- the patient denies having any suicidal and/or homicidal ideations and does not present with any other emotional, behavioral or mental health complaints. Status: Patient is not a service delivery manager or dependent. Transition of care: patient was not received from another setting of care. 04:44 Acuity: LYNN Level 4 ko2 04:44 Method Of Arrival: Walkin/Carried/Asstd ko2 07:19 Adult Sepsis Screening: The patient does not have new or worsening altered mentation. kpj Patient's respiratory rate is less than 22. Systolic blood pressure is greater than 100. Patient has a qSOFA score of 0- Negative Sepsis Screen. Triage Assessment: 04:48 General: Appears in no apparent distress. Pain: Denies pain. Pain: Denies pain. Pt ko2 Declines HIV testing. Pt Declines HIV testing. Neurological: Level of Consciousness is awake, alert. Respiratory: Airway is patent Respiratory effort is even, unlabored. Derm: Skin is normal. 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 divalproex 500 mg oral TbEC 1 tab 2 times per day 2. lithium carbonate 300 mg Oral tab 2 tabs twice a day verified with pharmacy 03/29/16 hs 3. olanzapine 10 mg oral tab 3 tabs nightly last dose was 2 nights ago - PMHx: Bipolar disorder; Schizophrenia; Depression; social anxiety; - PSHx: none; - Social history: Smoking status: Patient uses tobacco products, light tobacco smoker. No barriers to communication noted, The patient speaks fluent Wallisian, Speaks appropriately for age. - Family history: Not pertinent. - : The pt / caregiver states he / she is not on anticoagulants. Home medication list is obtained from the patient. - Exposure Risk Screening:: None identified. Screenin:51 Screening information is obtained from the patient. Primary language is Wallisian. Fall jam1 risk: No risks identified. Assistance ADL's: requires no assistance with activities of daily living. Assistance ADL's: requires no assistance with activities of daily living. Assistance ADL's: requires no assistance with activities of daily living. Abuse/DV Screen: The patient / caregiver reports he/she is: not in a situation that causes fear, pain or injury. Nutritional screening: No deficits noted. Exposure Risk Screening: None identified. Advance Directives: Currently, there is no health care proxy. There is no active DNR order. There is no living will. There is no Power of Dragger. Advance directive information has not previously been placed in an [facility] medical record. Further advance directive information is declined. home support is adequate. Assessment: 07:17 General: Appears in no apparent distress, comfortable, well nourished, well groomed, kpj Behavior is appropriate for age, pleasant. Pain: Denies pain. Neurological: Level of Consciousness is awake, alert, Oriented to person, place, time. Respiratory: Airway is patent Respiratory effort is even, unlabored, Respiratory pattern is regular, symmetrical. Derm: Skin is pink, warm & dry. Social Work Consult: 04:51 Social Work Note: JANE Law via [employer] called to say that PT was coming to ED for jfb complaint of needing a medication refill and that their is blood in her urine. PT had asked the skilled nursing staff if someone had come into her room as she thought they called her name but they had not. Ani states that they had assisted PT with getting her meds last month and when she said she was again out of meds they spoke with her about compliance. Ani feels PT is having hallucinations and they plan to report this to CPS as she also is not demonstrating that she can properly care for her child and there is a family court case going on. PT had also mentioned to their staff that she may have the percy of the beast on her and the blood in her urine may be caused by HIV. When staff encouraged her to be honest if she is hallucinating PT admitted to being fearful about having any issues as she doesn't want anything to hurt her court case. Ani denies that PT is admitting to hallucinations or SI/HI and just wanted us aware of PT's symptoms. 07:15 Social Work Note: Met with PT who denies SI/HI and admits to having an occasional AH jfb but denies they are command "I thought I heard my name being called" PT is calm and focused and also admits she is concerned about a pending Family Court case with her son. PT states she has been complaint with mental health treatment but her one medication has been declined by her insurance company and she has not yet informed her provider at [facility]. PT had her son with her and he was sleeping in his carrier. There are no concerns at this time for PT to be discharged with her child. Vital Signs: 04:48 BP 130 / 67; Pulse 90; Resp 16; Temp 98.1(TE); Pulse Ox 100% ; Weight 79.38 kg; Height ko2 5 ft. 4 in. (162.56 cm); Pain 0/10; 07:06 BP 120 / 65; Pulse 98; Resp 18; Temp 98.0; Pulse Ox 98% ; Pain 0/10; jam1 04:48 Body Mass Index 30.04 (79.38 kg, 162.56 cm) ko2 Vitals: 04:48 Log In Time: May 03, 2016 at 04:35. ko2 ED Course: 04:36 Patient visited by Casey Campbell Reg. pm4 04:36 Patient moved to Waiting pm4 04:37 Branden Dalton is Private Physician. pm4 04:44 Patient moved to Triage 1 ko2 04:46 Triage Initiated ko2 04:59 [facility] Payment Agreement was scanned into [employer] and attached to record. hs2 05:01 Patient moved to Waiting ko2 05:01 Urinalysis Sent. ko2 05:01 Urine Culture Sent. ko2 06:47 Patient moved to I2 / M2 jam1 06:50 Pt greeted and oriented to ED. Patient advised of names of staff involved in care, jam location of call mathews, wait times and NPO status. Patient has correct armband on for positive identification. Bed in low position. Call light in reach. Side rails up X 1. Door closed. PT SITTING IN CHAIR AT BED SIDE. 06:55 Bo Galvez PA-C is PHCP. cc10 06:55 Darci Askew DO is Attending Physician. cc10 06:55 Patient visited by Bo Galvez PA-C. cc10 06:55 Patient visited by Bo Galvez PA-C. cc10 07:02 Branden Dalton is Referral Physician. cc10 07:11 Social work Love Lyle PSA in to speak with patient. kpj 07:17 No apparent distress. kpj 07:17 The patient / caregiver is instructed regarding the plan of care and ED course. kpj 07:17 No IV's were initiated during this patient's visit. No procedures done that require [facility] assistance. Order Results: Lab Order: Urinalysis; SPEC'M 05/03/16 04:55 Test: APPEARANCE, URINE; Value: CLEAR; Range: CLEAR; Status: F Test: COLOR, URINE; Value: STRAW; Range: YELLOW; Status: F Test: PH,URINE; Value: 7.0; Range: 5.0-9.0; Units: UNITS; Status: F Test: SPECIFIC GRAVITY URINE AUTO; Value: 1.008; Range: 1.002-1.035; Status: F Test: PROTEIN, URINE AUTO; Value: NEGATIVE; Range: NEGATIVE; Units: mg/dL; Status: F Test: GLUCOSE, URINE (UA) AUTO; Value: NEGATIVE; Range: NEGATIVE; Units: mg/dL; Status: F Test: KETONE, URINE AUTO; Value: NEGATIVE; Range: NEGATIVE; Units: mg/dL; Status: F Test: UROBILINOGEN, URINE AUTO; Value: 0.2; Range: 0.0-2.0; Units: mg/dL; Status: F Test: BILIRUBIN, URINE AUTO; Value: NEGATIVE; Range: NEGATIVE; Status: F Test: NITRITE, URINE AUTO; Value: NEGATIVE; Range: NEGATIVE; Status: F Test: LEUKOCYTE ESTERASE, URINE AUTO; Value: NEGATIVE; Range: NEGATIVE; Status: F Test: BLOOD, URINE BLOOD; Value: 1+; Range: NEGATIVE; Abnormal: Above high normal; Status: F Test: WBC, URINE AUTO; Value: 1; Range: 0-3; Units: /HPF; Status: F Test: RBC, URINE AUTO; Value: 1; Range: 0-3; Units: /HPF; Status: F Test: BACTERIA, URINE AUTO; Value: NEGATIVE; Range: NEGATIVE; Status: F Test: SQUAMOUS EPITHELIAL CELL UR AU; Value: 1; Range: 0-6; Units: /HPF; Status: F Test: HYALINE CAST, URINE AUTO; Value: 0; Range: 0-1; Units: /LPF; Status: F Outcome: 07:03 Discharge ordered by Provider. cc10 07:17 Discharge Assessment: Patient awake, alert and oriented x 3. No cognitive and/or kpj functional deficits noted. Patient verbalized understanding of disposition instructions. patient administered narcotics - no. The following High Risk Discharge criteria are identified: None. Discharged to home ambulatory. Condition: stable. Discharge instructions given to patient, Instructed on discharge instructions, follow up and referral plans. medication usage, Demonstrated understanding of instructions, medications, Pt was receptive of discharge instructions/ teaching. Prescriptions given X 1. No special radiology studies were completed. Property sent home with patient. 07:19 Patient left the ED. [facility] Signatures: Yesi Grimm, RN RN Bel Sutton, FACILITIES COORDINATOR FACILITIES COORDINATOR jam1 Love Lyle, PSA PSA jfb Bo Galvez, PA-C PA-C cc10 Jayleen Martinez RN RN ko2 Kathleen Henriquez, Reg Reg hs2 Casey Campbell, Reg Reg pm4 [facility]
--- NOTE | 2016-05-03 07:21 | EDDOCDS ---
Physician Documentation [facility] Name: Estella Cruz Age: 26 yrs Sex: Female : 1990 Arrival Date: 05/03/2016 Time: 04:35 Bed I2 / M2 Private MD: Branden Dalton Disposition: 05/03/16 07:03 Discharged to Home/Self Care. Impression: Hematuria, Encounter for issue of repeat prescription. - Condition is Stable. - Discharge Instructions: Hematuria, Adult, Medicine Refill at the Emergency Department. - Prescriptions for olanzapine 10 mg Oral tablet - take 3 tablet by ORAL route once daily; 21 tablet. - Medication Reconciliation form. - Follow up: Branden Dalton; When: Call to arrange an appointment; Reason: Wound/Symptom Recheck, Recheck today's complaints, Worsening of conditions, Continuance of care. - Problem is an ongoing problem. - Symptoms are unchanged. Historical: - Allergies: PENICILLINS (Unknown); - Home Meds: 1. divalproex 500 mg oral TbEC 1 tab 2 times per day 2. lithium carbonate 300 mg Oral tab 2 tabs twice a day verified with pharmacy 03/29/16 hs 3. olanzapine 10 mg oral tab 3 tabs nightly last dose was 2 nights ago - PMHx: Bipolar disorder; Schizophrenia; Depression; social anxiety; - PSHx: none; - Social history: Smoking status: Patient uses tobacco products, light tobacco smoker. No barriers to communication noted, The patient speaks fluent Cymro, Speaks appropriately for age. - Family history: Not pertinent. - : The pt / caregiver states he / she is not on anticoagulants. Home medication list is obtained from the patient. - Exposure Risk Screening:: None identified. 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 4 in. (162.56 cm); Pain 0/10; 07:06 BP 120 / 65; Pulse 98; Resp 18; Temp 98.0; Pulse Ox 98% ; Pain 0/10; jam1 04:48 Body Mass Index 30.04 (79.38 kg, 162.56 cm) ko2 MDM: 04:57 Urine Culture Ordered. EDMS 04:57 Urinalysis Ordered. EDMS 04:59 [facility] [place] Payment Agreement was scanned into [employer] and attached to record. hs2 06:59 Financial registration complete. hs2 07:01 Urinalysis Reviewed. cc10 Signatures: Dispatcher MedHost EDMS Yesi Grimm, JANE LARA kpj Bo Galvez, PAToni PA-C cc10 Jayleen Martinez RN RN ko2 Kathleen Henriquez, Reg Reg hs2 The chart was reviewed and I authenticate all verbal orders and agree with the evaluation and treatment provided.Attachments: 04:59 [facility] Payment Agreement hs2 MTDD
--- NOTE | 2016-05-05 08:22 | EDDOCDS ---
Physician Documentation [facility] Name: Estella Cruz Age: 26 yrs Sex: Female : 1990 Arrival Date: 05/03/2016 Time: 04:35 Bed I2 / M2 Private MD: Branden Dalton Disposition: 05/03/16 07:03 Discharged to Home/Self Care. Impression: Hematuria, Encounter for issue of repeat prescription. - Condition is Stable. - Discharge Instructions: Hematuria, Adult, Medicine Refill at the Emergency Department. - Prescriptions for olanzapine 10 mg Oral tablet - take 3 tablet by ORAL route once daily; 21 tablet. - Medication Reconciliation form. - Follow up: Branden Dalton; When: Call to arrange an appointment; Reason: Wound/Symptom Recheck, Recheck today's complaints, Worsening of conditions, Continuance of care. - Problem is an ongoing problem. - Symptoms are unchanged. Historical: - Allergies: PENICILLINS (Unknown); - Home Meds: 1. divalproex 500 mg oral TbEC 1 tab 2 times per day 2. lithium carbonate 300 mg Oral tab 2 tabs twice a day verified with pharmacy 03/29/16 hs 3. olanzapine 10 mg oral tab 3 tabs nightly last dose was 2 nights ago - PMHx: Bipolar disorder; Schizophrenia; Depression; social anxiety; - PSHx: none; - Social history: Smoking status: Patient uses tobacco products, light tobacco smoker. No barriers to communication noted, The patient speaks fluent Panamanian, Speaks appropriately for age. - Family history: Not pertinent. - : The pt / caregiver states he / she is not on anticoagulants. Home medication list is obtained from the patient. - Exposure Risk Screening:: None identified. 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 4 in. (162.56 cm); Pain 0/10; 07:06 BP 120 / 65; Pulse 98; Resp 18; Temp 98.0; Pulse Ox 98% ; Pain 0/10; jam1 04:48 Body Mass Index 30.04 (79.38 kg, 162.56 cm) ko2 MDM: 04:57 Urine Culture Ordered. EDMS 04:57 Urinalysis Ordered. EDMS 04:59 [facility] [place] Payment Agreement was scanned into [employer] and attached to record. hs2 06:59 Financial registration complete. hs2 07:01 Urinalysis Reviewed. cc10 15:30 T-Sheet-- Draft Copy was scanned into [employer] and attached to record. gb Signatures: Dispatcher [employer] EDMS Yesi Grimm, RN JANE kpj Xiomara Nugent, Reg Reg gb Bo Galvez, PA-C PA-C cc10 Jayleen Martinez RN RN ko2 Kathleen Henriquez, Reg Reg hs2 The chart was reviewed and I authenticate all verbal orders and agree with the evaluation and treatment provided.Attachments: 04:59 [facility] [place] Payment Agreement hs2 15:30 T-Sheet-- Draft Copy gb Chart Complete MTDD
--- NOTE | 2016-05-05 08:22 | EDDOCDS ---
Nurse's Notes [facility] Name: Estella Cruz Age: 26 yrs Sex: Female : 1990 Arrival Date: 05/03/2016 Time: 04:35 Bed I2 / M2 Private MD: Branden Dalton Diagnosis: Hematuria;Encounter for issue of repeat prescription Presentation: 05/03 04:44 Presenting complaint: Patient states: blood in urine and isn't supposed to get period ko2 until the of this month. Pt also needs a refill on olanzapine. Suicide/Homicide risk assessment- the patient denies having any suicidal and/or homicidal ideations and does not present with any other emotional, behavioral or mental health complaints. Status: Patient is not a environmental services lead or dependent. Transition of care: patient was not received from another setting of care. 04:44 Acuity: LYNN Level 4 ko2 04:44 Method Of Arrival: Walkin/Carried/Asstd ko2 07:19 Adult Sepsis Screening: The patient does not have new or worsening altered mentation. kpj Patient's respiratory rate is less than 22. Systolic blood pressure is greater than 100. Patient has a qSOFA score of 0- Negative Sepsis Screen. Triage Assessment: 04:48 General: Appears in no apparent distress. Pain: Denies pain. Pain: Denies pain. Pt ko2 Declines HIV testing. Pt Declines HIV testing. Neurological: Level of Consciousness is awake, alert. Respiratory: Airway is patent Respiratory effort is even, unlabored. Derm: Skin is normal. 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 divalproex 500 mg oral TbEC 1 tab 2 times per day 2. lithium carbonate 300 mg Oral tab 2 tabs twice a day verified with pharmacy 03/29/16 hs 3. olanzapine 10 mg oral tab 3 tabs nightly last dose was 2 nights ago - PMHx: Bipolar disorder; Schizophrenia; Depression; social anxiety; - PSHx: none; - Social history: Smoking status: Patient uses tobacco products, light tobacco smoker. No barriers to communication noted, The patient speaks fluent New Zealander, Speaks appropriately for age. - Family history: Not pertinent. - : The pt / caregiver states he / she is not on anticoagulants. Home medication list is obtained from the patient. - Exposure Risk Screening:: None identified. Screenin:51 Screening information is obtained from the patient. Primary language is New Zealander. Fall jam1 risk: No risks identified. Assistance ADL's: requires no assistance with activities of daily living. Assistance ADL's: requires no assistance with activities of daily living. Assistance ADL's: requires no assistance with activities of daily living. Abuse/DV Screen: The patient / caregiver reports he/she is: not in a situation that causes fear, pain or injury. Nutritional screening: No deficits noted. Exposure Risk Screening: None identified. Advance Directives: Currently, there is no health care proxy. There is no active DNR order. There is no living will. There is no Power of Production Reproduction Manager. Advance directive information has not previously been placed in an [facility] medical record. Further advance directive information is declined. home support is adequate. Assessment: 07:17 General: Appears in no apparent distress, comfortable, well nourished, well groomed, kpj Behavior is appropriate for age, pleasant. Pain: Denies pain. Neurological: Level of Consciousness is awake, alert, Oriented to person, place, time. Respiratory: Airway is patent Respiratory effort is even, unlabored, Respiratory pattern is regular, symmetrical. Derm: Skin is pink, warm & dry. Social Work Consult: 04:51 Social Work Note: JANE Law via [facility] called to say that PT was coming to ED for jfb complaint of needing a medication refill and that their is blood in her urine. PT had asked the [facility] staff if someone had come into her room as she thought they called her name but they had not. Ani states that they had assisted PT with getting her meds last month and when she said she was again out of meds they spoke with her about compliance. Ani feels PT is having hallucinations and they plan to report this to CPS as she also is not demonstrating that she can properly care for her child and there is a family court case going on. PT had also mentioned to their staff that she may have the percy of the beast on her and the blood in her urine may be caused by HIV. When staff encouraged her to be honest if she is hallucinating PT admitted to being fearful about having any issues as she doesn't want anything to hurt her court case. Ani denies that PT is admitting to hallucinations or SI/HI and just wanted us aware of PT's symptoms. 07:15 Social Work Note: Met with PT who denies SI/HI and admits to having an occasional AH jfb but denies they are command "I thought I heard my name being called" PT is calm and focused and also admits she is concerned about a pending Family Court case with her son. PT states she has been complaint with mental health treatment but her one medication has been declined by her insurance company and she has not yet informed her provider at [facility]. PT had her son with her and he was sleeping in his carrier. There are no concerns at this time for PT to be discharged with her child. Vital Signs: 04:48 BP 130 / 67; Pulse 90; Resp 16; Temp 98.1(TE); Pulse Ox 100% ; Weight 79.38 kg; Height ko2 5 ft. 4 in. (162.56 cm); Pain 0/10; 07:06 BP 120 / 65; Pulse 98; Resp 18; Temp 98.0; Pulse Ox 98% ; Pain 0/10; jam1 04:48 Body Mass Index 30.04 (79.38 kg, 162.56 cm) ko2 Vitals: 04:48 Log In Time: May 03, 2016 at 04:35. ko2 ED Course: 04:36 Patient visited by Casey Campbell Reg. pm4 04:36 Patient moved to Waiting pm4 04:37 Branden Dalton is Private Physician. pm4 04:44 Patient moved to Triage 1 ko2 04:46 Triage Initiated ko2 04:59 [facility] Payment Agreement was scanned into [employer] and attached to record. hs2 05:01 Patient moved to Waiting ko2 05:01 Urinalysis Sent. ko2 05:01 Urine Culture Sent. ko2 06:47 Patient moved to I2 / M2 jam1 06:50 Pt greeted and oriented to ED. Patient advised of names of staff involved in care, jam location of call mathews, wait times and NPO status. Patient has correct armband on for positive identification. Bed in low position. Call light in reach. Side rails up X 1. Door closed. PT SITTING IN CHAIR AT BED SIDE. 06:55 Bo Galvez PA-C is PHCP. cc10 06:55 Darci Askew DO is Attending Physician. cc10 06:55 Patient visited by Bo Galvez PA-C. cc10 06:55 Patient visited by Bo Galvez PA-C. cc10 07:02 Branden Dalton is Referral Physician. cc10 07:11 Social work Love Lyle PSA in to speak with patient. kpj 07:17 No apparent distress. kpj 07:17 The patient / caregiver is instructed regarding the plan of care and ED course. kpj 07:17 No IV's were initiated during this patient's visit. No procedures done that require [facility] assistance. 15:30 T-Sheet-- Draft Copy was scanned into [employer] and attached to record. gb Order Results: Lab Order: Urine Culture; SPEC'M 05/03/16 04:55 Test: URINE CULTURE; Value: <EXTERNAL COMMENT eCWMed> FULL REPORT IN LAB NOTES (eCW and Medent).; Status: F Test: URINE CULTURE; Value: ORGANISM 1: STREP AGALACTIAE GROUP B; Status: F Test: URINE CULTURE; Value: STREP AGALACTIAE GROUP B; Status: F Test: URINE CULTURE; Value: COLONY COUNT CFU/ml 30,000; Status: F Test: URINE CULTURE; Value: GRAM POS SENSI - ST02; Status: F Test: URINE CULTURE; Value: Method: VIT2; Status: F Test: URINE CULTURE; Value: ICR (INDUCIBLE CC RESISTANCE) -; Status: F Test: URINE CULTURE; Value: TETRACYCLINE >=16 R; Status: F Test: URINE CULTURE; Value: PENICILLIN G <=0.06 S; Status: F Test: URINE CULTURE; Value: TRIMETHOPRIM/SULFAMETHOXAZOLE <=10 S; Status: F Test: URINE CULTURE; Value: AMPICILLIN <=0.25 S; Status: F Test: URINE CULTURE; Value: ERYTHROMYCIN >=8 R; Status: F Test: URINE CULTURE; Value: LEVOFLOXACIN 0.5 S; Status: F Test: URINE CULTURE; Value: VANCOMYCIN 0.5 S; Status: F Test: URINE CULTURE; Value: MOXIFLOXACIN (AVELOX) 0.12 S; Status: F Test: URINE CULTURE; Value: CEFTRIAXONE <=0.12 S; Status: F Test: URINE CULTURE; Value: CEFOTAXIME <=0.12 S; Status: F Lab Order: Urinalysis; SPEC'M 05/03/16 04:55 Test: APPEARANCE, URINE; Value: CLEAR; Range: CLEAR; Status: F Test: COLOR, URINE; Value: STRAW; Range: YELLOW; Status: F Test: PH,URINE; Value: 7.0; Range: 5.0-9.0; Units: UNITS; Status: F Test: SPECIFIC GRAVITY URINE AUTO; Value: 1.008; Range: 1.002-1.035; Status: F Test: PROTEIN, URINE AUTO; Value: NEGATIVE; Range: NEGATIVE; Units: mg/dL; Status: F Test: GLUCOSE, URINE (UA) AUTO; Value: NEGATIVE; Range: NEGATIVE; Units: mg/dL; Status: F Test: KETONE, URINE AUTO; Value: NEGATIVE; Range: NEGATIVE; Units: mg/dL; Status: F Test: UROBILINOGEN, URINE AUTO; Value: 0.2; Range: 0.0-2.0; Units: mg/dL; Status: F Test: BILIRUBIN, URINE AUTO; Value: NEGATIVE; Range: NEGATIVE; Status: F Test: NITRITE, URINE AUTO; Value: NEGATIVE; Range: NEGATIVE; Status: F Test: LEUKOCYTE ESTERASE, URINE AUTO; Value: NEGATIVE; Range: NEGATIVE; Status: F Test: BLOOD, URINE BLOOD; Value: 1+; Range: NEGATIVE; Abnormal: Above high normal; Status: F Test: WBC, URINE AUTO; Value: 1; Range: 0-3; Units: /HPF; Status: F Test: RBC, URINE AUTO; Value: 1; Range: 0-3; Units: /HPF; Status: F Test: BACTERIA, URINE AUTO; Value: NEGATIVE; Range: NEGATIVE; Status: F Test: SQUAMOUS EPITHELIAL CELL UR AU; Value: 1; Range: 0-6; Units: /HPF; Status: F Test: HYALINE CAST, URINE AUTO; Value: 0; Range: 0-1; Units: /LPF; Status: F Outcome: 07:03 Discharge ordered by Provider. cc10 07:17 Discharge Assessment: Patient awake, alert and oriented x 3. No cognitive and/or kpj functional deficits noted. Patient verbalized understanding of disposition instructions. patient administered narcotics - no. The following High Risk Discharge criteria are identified: None. Discharged to home ambulatory. Condition: stable. Discharge instructions given to patient, Instructed on discharge instructions, follow up and referral plans. medication usage, Demonstrated understanding of instructions, medications, Pt was receptive of discharge instructions/ teaching. Prescriptions given X 1. No special radiology studies were completed. Property sent home with patient. 07:19 Patient left the ED. shahnaz Signatures: Yesi Grimm, RN RN Bel Sutton, NITRO MAN NITRO MAN jam1 Xiomara Nugent, Reg Reg gb Lyle, Love, PSA PSA jfb Bo Galvez, PA-C PA-C cc10 Jayleen Martinez RN RN ko2 Kathleen Henriquez, Reg Reg hs2 Casey Campbell, Reg Reg pm4 Chart Complete MTDD
--- NOTE | 2016-05-05 08:22 | EDDOCDS ---
Physician Documentation [facility] Name: Estella Cruz Age: 26 yrs Sex: Female : 1990 Arrival Date: 05/03/2016 Time: 04:35 Bed I2 / M2 Private MD: Branden Dalton Disposition: 05/03/16 07:03 Discharged to Home/Self Care. Impression: Hematuria, Encounter for issue of repeat prescription. - Condition is Stable. - Discharge Instructions: Hematuria, Adult, Medicine Refill at the Emergency Department. - Prescriptions for olanzapine 10 mg Oral tablet - take 3 tablet by ORAL route once daily; 21 tablet. - Medication Reconciliation form. - Follow up: Branden Dalton; When: Call to arrange an appointment; Reason: Wound/Symptom Recheck, Recheck today's complaints, Worsening of conditions, Continuance of care. - Problem is an ongoing problem. - Symptoms are unchanged. Historical: - Allergies: PENICILLINS (Unknown); - Home Meds: 1. divalproex 500 mg oral TbEC 1 tab 2 times per day 2. lithium carbonate 300 mg Oral tab 2 tabs twice a day verified with pharmacy 03/29/16 hs 3. olanzapine 10 mg oral tab 3 tabs nightly last dose was 2 nights ago - PMHx: Bipolar disorder; Schizophrenia; Depression; social anxiety; - PSHx: none; - Social history: Smoking status: Patient uses tobacco products, light tobacco smoker. No barriers to communication noted, The patient speaks fluent Nigerian, Speaks appropriately for age. - Family history: Not pertinent. - : The pt / caregiver states he / she is not on anticoagulants. Home medication list is obtained from the patient. - Exposure Risk Screening:: None identified. 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 4 in. (162.56 cm); Pain 0/10; 07:06 BP 120 / 65; Pulse 98; Resp 18; Temp 98.0; Pulse Ox 98% ; Pain 0/10; jam1 04:48 Body Mass Index 30.04 (79.38 kg, 162.56 cm) ko2 MDM: 04:57 Urine Culture Ordered. EDMS 04:57 Urinalysis Ordered. EDMS 04:59 [facility] [place] Payment Agreement was scanned into [employer] and attached to record. hs2 06:59 Financial registration complete. hs2 07:01 Urinalysis Reviewed. cc10 15:30 T-Sheet-- Draft Copy was scanned into [employer] and attached to record. gb Signatures: Dispatcher [employer]Host EDMS Yesi Grimm, RN JANE kpj Xiomara Nugent, Reg Reg gb Bo Galvez, PA-C PA-C cc10 Jayleen Martinez RN RN ko2 Kathleen Henriquez, Reg Reg hs2 The chart was reviewed and I authenticate all verbal orders and agree with the evaluation and treatment provided.Attachments: 04:59 [facility] Payment Agreement hs2 15:30 T-Sheet-- Draft Copy gb Chart Complete MTDD
--- NOTE | 2016-05-06 16:35 | EDDOCDS ---
Physician Documentation [facility] Name: Estella Cruz Age: 26 yrs Sex: Female : 1990 Arrival Date: 05/03/2016 Time: 04:35 Bed I2 / M2 Private MD: Branden Dalton Disposition: 05/03/16 07:03 Discharged to Home/Self Care. Impression: Hematuria, Encounter for issue of repeat prescription. - Condition is Stable. - Discharge Instructions: Hematuria, Adult, Medicine Refill at the Emergency Department. - Prescriptions for olanzapine 10 mg Oral tablet - take 3 tablet by ORAL route once daily; 21 tablet. - Medication Reconciliation form. - Follow up: Branden Dalton; When: Call to arrange an appointment; Reason: Wound/Symptom Recheck, Recheck today's complaints, Worsening of conditions, Continuance of care. - Problem is an ongoing problem. - Symptoms are unchanged. Historical: - Allergies: PENICILLINS (Unknown); - Home Meds: 1. divalproex 500 mg oral TbEC 1 tab 2 times per day 2. lithium carbonate 300 mg Oral tab 2 tabs twice a day verified with pharmacy 03/29/16 hs 3. olanzapine 10 mg oral tab 3 tabs nightly last dose was 2 nights ago - PMHx: Bipolar disorder; Schizophrenia; Depression; social anxiety; - PSHx: none; - Social history: Smoking status: Patient uses tobacco products, light tobacco smoker. No barriers to communication noted, The patient speaks fluent Zimbabwean, Speaks appropriately for age. - Family history: Not pertinent. - : The pt / caregiver states he / she is not on anticoagulants. Home medication list is obtained from the patient. - Exposure Risk Screening:: None identified. 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 4 in. (162.56 cm); Pain 0/10; 07:06 BP 120 / 65; Pulse 98; Resp 18; Temp 98.0; Pulse Ox 98% ; Pain 0/10; jam1 04:48 Body Mass Index 30.04 (79.38 kg, 162.56 cm) ko2 MDM: 04:57 Urine Culture Ordered. EDMS 04:57 Urinalysis Ordered. EDMS 04:59 [facility] [place] [place] Payment Agreement was scanned into [employer] and attached to record. hs2 06:59 Financial registration complete. hs2 07:01 Urinalysis Reviewed. cc10 15:30 T-Sheet-- Draft Copy was scanned into [employer] and attached to record. gb Signatures: Dispatcher [employer] EDMS Yesi Grimm, RN JANE kpj Xiomara Nugent, Reg Reg gb Bo Galvez, PA-C PA-C cc10 Jayleen Martinez RN RN ko2 Kathleen Henriquez, Reg Reg hs2 The chart was reviewed and I authenticate all verbal orders and agree with the evaluation and treatment provided.Attachments: 04:59 [facility] [place] [place] Payment Agreement hs2 15:30 T-Sheet-- Draft Copy gb Chart Complete MTDD
--- NOTE | 2016-05-06 16:35 | EDDOCDS ---
Nurse's Notes [facility] Name: Estella Cruz Age: 26 yrs Sex: Female : 1990 Arrival Date: 05/03/2016 Time: 04:35 Bed I2 / M2 Private MD: Branden Dalton Diagnosis: Hematuria;Encounter for issue of repeat prescription Presentation: 05/03 04:44 Presenting complaint: Patient states: blood in urine and isn't supposed to get period ko2 until the of this month. Pt also needs a refill on olanzapine. Suicide/Homicide risk assessment- the patient denies having any suicidal and/or homicidal ideations and does not present with any other emotional, behavioral or mental health complaints. 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 Transition of care: patient was not received from another setting of care. 04:44 Acuity: LYNN Level 4 ko2 04:44 Method Of Arrival: Walkin/Carried/Asstd ko2 07:19 Adult Sepsis Screening: The patient does not have new or worsening altered mentation. kpj Patient's respiratory rate is less than 22. Systolic blood pressure is greater than 100. Patient has a qSOFA score of 0- Negative Sepsis Screen. Triage Assessment: 04:48 General: Appears in no apparent distress. Pain: Denies pain. Pain: Denies pain. Pt ko2 Declines HIV testing. Pt Declines HIV testing. Neurological: Level of Consciousness is awake, alert. Respiratory: Airway is patent Respiratory effort is even, unlabored. Derm: Skin is normal. 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 divalproex 500 mg oral TbEC 1 tab 2 times per day 2. lithium carbonate 300 mg Oral tab 2 tabs twice a day verified with pharmacy 03/29/16 hs 3. olanzapine 10 mg oral tab 3 tabs nightly last dose was 2 nights ago - PMHx: Bipolar disorder; Schizophrenia; Depression; social anxiety; - PSHx: none; - Social history: Smoking status: Patient uses tobacco products, light tobacco smoker. No barriers to communication noted, The patient speaks fluent Latvian, Speaks appropriately for age. - Family history: Not pertinent. - : The pt / caregiver states he / she is not on anticoagulants. Home medication list is obtained from the patient. - Exposure Risk Screening:: None identified. Screenin:51 Screening information is obtained from the patient. Primary language is Latvian. Fall jam1 risk: No risks identified. Assistance ADL's: requires no assistance with activities of daily living. Assistance ADL's: requires no assistance with activities of daily living. Assistance ADL's: requires no assistance with activities of daily living. Abuse/DV Screen: The patient / caregiver reports he/she is: not in a situation that causes fear, pain or injury. Nutritional screening: No deficits noted. Exposure Risk Screening: None identified. Advance Directives: Currently, there is no health care proxy. There is no active DNR order. There is no living will. There is no Power of Harpsichord Maker. Advance directive information has not previously been placed in an [facility] medical record. Further advance directive information is declined. home support is adequate. Assessment: 07:17 General: Appears in no apparent distress, comfortable, well nourished, well groomed, kpj Behavior is appropriate for age, pleasant. Pain: Denies pain. Neurological: Level of Consciousness is awake, alert, Oriented to person, place, time. Respiratory: Airway is patent Respiratory effort is even, unlabored, Respiratory pattern is regular, symmetrical. Derm: Skin is pink, warm & dry. Social Work Consult: 04:51 Social Work Note: JANE Law via [employer] called to say that PT was coming to ED for jfb complaint of needing a medication refill and that their is blood in her urine. PT had asked the senior care staff if someone had come into her room as she thought they called her name but they had not. Ani states that they had assisted PT with getting her meds last month and when she said she was again out of meds they spoke with her about compliance. Ani feels PT is having hallucinations and they plan to report this to CPS as she also is not demonstrating that she can properly care for her child and there is a family court case going on. PT had also mentioned to their staff that she may have the percy of the beast on her and the blood in her urine may be caused by HIV. When staff encouraged her to be honest if she is hallucinating PT admitted to being fearful about having any issues as she doesn't want anything to hurt her court case. Ani denies that PT is admitting to hallucinations or SI/HI and just wanted us aware of PT's symptoms. 07:15 Social Work Note: Met with PT who denies SI/HI and admits to having an occasional AH jfb but denies they are command "I thought I heard my name being called" PT is calm and focused and also admits she is concerned about a pending Family Court case with her son. PT states she has been complaint with mental health treatment but her one medication has been declined by her insurance company and she has not yet informed her provider at [facility]. PT had her son with her and he was sleeping in his carrier. There are no concerns at this time for PT to be discharged with her child. Vital Signs: 04:48 BP 130 / 67; Pulse 90; Resp 16; Temp 98.1(TE); Pulse Ox 100% ; Weight 79.38 kg; Height ko2 5 ft. 4 in. (162.56 cm); Pain 0/10; 07:06 BP 120 / 65; Pulse 98; Resp 18; Temp 98.0; Pulse Ox 98% ; Pain 0/10; jam1 04:48 Body Mass Index 30.04 (79.38 kg, 162.56 cm) ko2 Vitals: 04:48 Log In Time: May 03, 2016 at 04:35. ko2 ED Course: 04:36 Patient visited by Casey Campbell Reg. pm4 04:36 Patient moved to Waiting pm4 04:37 Branden Dalton is Private Physician. pm4 04:44 Patient moved to Triage 1 ko2 04:46 Triage Initiated ko2 04:59 [facility] Payment Agreement was scanned into [employer] and attached to record. hs2 05:01 Patient moved to Waiting ko2 05:01 Urinalysis Sent. ko2 05:01 Urine Culture Sent. ko2 06:47 Patient moved to I2 / M2 jam1 06:50 Pt greeted and oriented to ED. Patient advised of names of staff involved in care, jam location of call mathews, wait times and NPO status. Patient has correct armband on for positive identification. Bed in low position. Call light in reach. Side rails up X 1. Door closed. PT SITTING IN CHAIR AT BED SIDE. 06:55 Bo Galvez PA-C is PHCP. cc10 06:55 Darci Askew DO is Attending Physician. cc10 06:55 Patient visited by Bo Galvez PA-C. cc10 06:55 Patient visited by Bo Galvez PA-C. cc10 07:02 Branden Dalton is Referral Physician. cc10 07:11 Social work Love Lyle PSA in to speak with patient. kpj 07:17 No apparent distress. kpj 07:17 The patient / caregiver is instructed regarding the plan of care and ED course. kpj 07:17 No IV's were initiated during this patient's visit. No procedures done that require [facility] assistance. 15:30 T-Sheet-- Draft Copy was scanned into [employer] and attached to record. gb Order Results: Lab Order: Urine Culture; SPEC'M 05/03/16 04:55 Test: URINE CULTURE; Value: <EXTERNAL COMMENT eCWMed> FULL REPORT IN LAB NOTES (eCW and Medent).; Status: F Test: URINE CULTURE; Value: ORGANISM 1: STREP AGALACTIAE GROUP B; Status: F Test: URINE CULTURE; Value: STREP AGALACTIAE GROUP B; Status: F Test: URINE CULTURE; Value: COLONY COUNT CFU/ml 30,000; Status: F Test: URINE CULTURE; Value: GRAM POS SENSI - ST02; Status: F Test: URINE CULTURE; Value: Method: VIT2; Status: F Test: URINE CULTURE; Value: ICR (INDUCIBLE CC RESISTANCE) -; Status: F Test: URINE CULTURE; Value: TETRACYCLINE >=16 R; Status: F Test: URINE CULTURE; Value: PENICILLIN G <=0.06 S; Status: F Test: URINE CULTURE; Value: TRIMETHOPRIM/SULFAMETHOXAZOLE <=10 S; Status: F Test: URINE CULTURE; Value: AMPICILLIN <=0.25 S; Status: F Test: URINE CULTURE; Value: ERYTHROMYCIN >=8 R; Status: F Test: URINE CULTURE; Value: LEVOFLOXACIN 0.5 S; Status: F Test: URINE CULTURE; Value: VANCOMYCIN 0.5 S; Status: F Test: URINE CULTURE; Value: MOXIFLOXACIN (AVELOX) 0.12 S; Status: F Test: URINE CULTURE; Value: CEFTRIAXONE <=0.12 S; Status: F Test: URINE CULTURE; Value: CEFOTAXIME <=0.12 S; Status: F Lab Order: Urinalysis; SPEC'M 05/03/16 04:55 Test: APPEARANCE, URINE; Value: CLEAR; Range: CLEAR; Status: F Test: COLOR, URINE; Value: STRAW; Range: YELLOW; Status: F Test: PH,URINE; Value: 7.0; Range: 5.0-9.0; Units: UNITS; Status: F Test: SPECIFIC GRAVITY URINE AUTO; Value: 1.008; Range: 1.002-1.035; Status: F Test: PROTEIN, URINE AUTO; Value: NEGATIVE; Range: NEGATIVE; Units: mg/dL; Status: F Test: GLUCOSE, URINE (UA) AUTO; Value: NEGATIVE; Range: NEGATIVE; Units: mg/dL; Status: F Test: KETONE, URINE AUTO; Value: NEGATIVE; Range: NEGATIVE; Units: mg/dL; Status: F Test: UROBILINOGEN, URINE AUTO; Value: 0.2; Range: 0.0-2.0; Units: mg/dL; Status: F Test: BILIRUBIN, URINE AUTO; Value: NEGATIVE; Range: NEGATIVE; Status: F Test: NITRITE, URINE AUTO; Value: NEGATIVE; Range: NEGATIVE; Status: F Test: LEUKOCYTE ESTERASE, URINE AUTO; Value: NEGATIVE; Range: NEGATIVE; Status: F Test: BLOOD, URINE BLOOD; Value: 1+; Range: NEGATIVE; Abnormal: Above high normal; Status: F Test: WBC, URINE AUTO; Value: 1; Range: 0-3; Units: /HPF; Status: F Test: RBC, URINE AUTO; Value: 1; Range: 0-3; Units: /HPF; Status: F Test: BACTERIA, URINE AUTO; Value: NEGATIVE; Range: NEGATIVE; Status: F Test: SQUAMOUS EPITHELIAL CELL UR AU; Value: 1; Range: 0-6; Units: /HPF; Status: F Test: HYALINE CAST, URINE AUTO; Value: 0; Range: 0-1; Units: /LPF; Status: F Outcome: 07:03 Discharge ordered by Provider. cc10 07:17 Discharge Assessment: Patient awake, alert and oriented x 3. No cognitive and/or kpj functional deficits noted. Patient verbalized understanding of disposition instructions. patient administered narcotics - no. The following High Risk Discharge criteria are identified: None. Discharged to home ambulatory. Condition: stable. Discharge instructions given to patient, Instructed on discharge instructions, follow up and referral plans. medication usage, Demonstrated understanding of instructions, medications, Pt was receptive of discharge instructions/ teaching. Prescriptions given X 1. No special radiology studies were completed. Property sent home with patient. 07:19 Patient left the ED. shahnaz Signatures: Yesi Grimm, RN RN Bel Sutton, SPORTS AGENT SPORTS AGENT jam1 Xiomara Nugent, Reg Reg gb Lyle, Love, PSA PSA jfb Bo Galvez, PA-C PA-C cc10 Jayleen Martinez RN RN ko2 Kathleen Henriquez, Reg Reg hs2 Casey Campbell, Reg Reg pm4 Chart Complete MTDD
--- NOTE | 2016-05-06 16:35 | EDDOCDS ---
Physician Documentation [facility] Name: Estella Cruz Age: 26 yrs Sex: Female : 1990 Arrival Date: 05/03/2016 Time: 04:35 Bed I2 / M2 Private MD: Branden Dalton Disposition: 05/03/16 07:03 Discharged to Home/Self Care. Impression: Hematuria, Encounter for issue of repeat prescription. - Condition is Stable. - Discharge Instructions: Hematuria, Adult, Medicine Refill at the Emergency Department. - Prescriptions for olanzapine 10 mg Oral tablet - take 3 tablet by ORAL route once daily; 21 tablet. - Medication Reconciliation form. - Follow up: Branden Dalton; When: Call to arrange an appointment; Reason: Wound/Symptom Recheck, Recheck today's complaints, Worsening of conditions, Continuance of care. - Problem is an ongoing problem. - Symptoms are unchanged. Historical: - Allergies: PENICILLINS (Unknown); - Home Meds: 1. divalproex 500 mg oral TbEC 1 tab 2 times per day 2. lithium carbonate 300 mg Oral tab 2 tabs twice a day verified with pharmacy 03/29/16 hs 3. olanzapine 10 mg oral tab 3 tabs nightly last dose was 2 nights ago - PMHx: Bipolar disorder; Schizophrenia; Depression; social anxiety; - PSHx: none; - Social history: Smoking status: Patient uses tobacco products, light tobacco smoker. No barriers to communication noted, The patient speaks fluent Iranian, Speaks appropriately for age. - Family history: Not pertinent. - : The pt / caregiver states he / she is not on anticoagulants. Home medication list is obtained from the patient. - Exposure Risk Screening:: None identified. 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 4 in. (162.56 cm); Pain 0/10; 07:06 BP 120 / 65; Pulse 98; Resp 18; Temp 98.0; Pulse Ox 98% ; Pain 0/10; jam1 04:48 Body Mass Index 30.04 (79.38 kg, 162.56 cm) ko2 MDM: 04:57 Urine Culture Ordered. EDMS 04:57 Urinalysis Ordered. EDMS 04:59 [facility] Payment Agreement was scanned into [employer] and attached to record. hs2 06:59 Financial registration complete. hs2 07:01 Urinalysis Reviewed. cc10 15:30 T-Sheet-- Draft Copy was scanned into [employer] and attached to record. gb Signatures: Dispatcher [employer] EDMS Yesi Grimm, RN JANE kpj Xiomara Nugent, Reg Reg gb Bo Galvez, PA-C PA-C cc10 Jayleen Martinez RN RN ko2 Kathleen Henriquez, Reg Reg hs2 The chart was reviewed and I authenticate all verbal orders and agree with the evaluation and treatment provided.Attachments: 04:59 [facility] Payment Agreement hs2 15:30 T-Sheet-- Draft Copy gb Chart Complete MTDD
== END 2016-05-03 07:19 | disposition home or self-care (01) ==
LOC: M ED 04:35
DX: Z76.0 Encounter for issue of repeat prescription (principal); R31.9 Hematuria, unspecified; F31.9 Bipolar disorder, unspecified; F20.9 Schizophrenia, unspecified; F40.10 Social phobia, unspecified; Z79.899 Other long term (current) drug therapy; Z88.0 Allergy status to penicillin; F17.210 Nicotine dependence, cigarettes, uncomplicated; Z91.14 Patient's other noncompliance with medication regimen

== ENCOUNTER → 2016-06-24 | Outpatient (CLI) | payer MEDICAID | LOC: M LAB 13:31 | PROVIDERS: ATTEND Nurse Practitioner Family | DX: F25.0 Schizoaffective disorder, bipolar type (principal) ==

== ENCOUNTER → 2016-08-24 | Outpatient (CLI) | payer OTHER ==
[2016-08-24 15:40] LABS: FREE T4 1.1 NG/DL (0.76-1.46)
== END ==
LOC: M WUC 09:24
PROVIDERS: ATTEND Family Medicine Addiction Medicine
DX: E78.4 Other hyperlipidemia (principal)

== ENCOUNTER 2016-09-09 00:37 | Emergency (ER) | payer OTHER ==
[~2016-09-09] VITALS: Ht 162.6 cm; Wt 92.7 kg
[2016-09-09 02:43] LABS: METHADONE URINE NEGATIVE (NEGATIVE)
[2016-09-09 05:29] VITALS: BP 115/54
[2016-09-10] MEDS ORDERED: CETI10TA PO (08:14)
[2016-09-10] MEDS ORDERED: CEFD1CAP8 PO (08:14)
== END 2016-09-09 05:31 | disposition home or self-care (01) ==
LOC: M ED 02:39
DX: F12.129 Cannabis abuse with intoxication, unspecified (principal); Z79.899 Other long term (current) drug therapy; Z88.0 Allergy status to penicillin

== ENCOUNTER 2016-09-10 07:57 | Emergency (ER) | payer OTHER ==
[~2016-09-10] VITALS: Ht 162.6 cm; Wt 91.8 kg
[2016-09-10] MEDS ORDERED: CEFD1CAP8 PO (08:14)
[2016-09-10] MEDS ORDERED: CETI10TA PO (08:14)
[2016-09-10] MEDS ORDERED: LORazepam 1 MG TAB PO STA (08:34)
[2016-09-10] MEDS ORDERED: OLANZapine ORAL DISINTEGRATING TAB 5MG PO ONE (08:45)
[2016-09-10 09:01] LABS: MEAN CORPUSCULAR HGB CONC 31.5 g/dl (32.0-36.5); MEAN CORPUSCULAR VOLUME 92.1 fl (80.0-96.0); RED CELL DISTRIBUTION WIDTH 12.5 % (11.5-14.5)
[2016-09-10 09:21] LABS: ALBUMIN 4.1 GM/DL (3.2-5.2); ALBUMIN/GLOBULIN RATIO 0.98 (1.00-1.93); ALKALINE PHOSPHATASE 45 U/L (45-117); ALT/SGPT 23 U/L (12-78); ANION GAP 7 MEQ/L (8-16); AST/SGOT 15 U/L (15-37); BILIRUBIN,DIRECT < 0.1 MG/DL (0.0-0.2); BILIRUBIN,TOTAL 0.5 MG/DL (0.2-1.0); BLOOD UREA NITROGEN 8 MG/DL (7-18); CALCIUM LEVEL 9.4 MG/DL (8.5-10.1); CARBON DIOXIDE LEVEL 26 MEQ/L (21-32); CHLORIDE LEVEL 107 MEQ/L (98-107); CREATININE FOR GFR 0.81 MG/DL (0.55-1.02); GLOMERULAR FILTRATION RATE > 60.0 (>60); GLUCOSE, FASTING 103 MG/DL (70-105); POTASSIUM SERUM 3.8 MEQ/L (3.5-5.1); SODIUM LEVEL 140 MEQ/L (136-145); TOTAL PROTEIN 8.3 GM/DL (6.4-8.2)
[2016-09-10 09:45] LABS: LITHIUM LEVEL 0.48 MEQ/L (0.60-1.20)
[2016-09-10 10:01] LABS: METHADONE URINE NEGATIVE (NEGATIVE)
--- NOTE | 2016-09-10 16:38 | ECGEPIP ---
Stationary ECG Study 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
[2016-09-10] MEDS ORDERED: LITHIUM CARBONATE 600 MG CAP PO ONE (20:45)
[2016-09-10] MEDS ORDERED: OLANZapine 10 MG TAB PO ONE (20:45)
[2016-09-10] MEDS ORDERED: DIVALPROEX 500MG *ER* TAB PO ONE (20:45)
[2016-09-10] MEDS ORDERED: CEFDINIR 300 MG CAP (OMNICEF) PO ONE (21:00)
[2016-09-11] MEDS ORDERED: METAL LOCK LOOP XX ONE ×3 (02:18→07:31)
[2016-09-11] MEDS ORDERED: DIVALPROEX 250MG *ER* TAB PO ONE (07:45)
[2016-09-11] MEDS ORDERED: LITHIUM CARBONATE 600 MG CAP PO ONE (07:45)
[2016-09-11 08:37] VITALS: BP 118/67
== END 2016-09-11 09:24 ==
LOC: M ED 09:41
DX: F29 Unspecified psychosis not due to a substance or known physiological condition (principal); F31.9 Bipolar disorder, unspecified; F12.10 Cannabis abuse, uncomplicated; Z79.899 Other long term (current) drug therapy; Z88.0 Allergy status to penicillin

== ENCOUNTER 2016-10-15 21:59 | Emergency (ER) | payer OTHER ==
[~2016-10-15] VITALS: Ht 162.6 cm; Wt 93.2 kg
[~2016-10-15 21:59] MED LIST changes: +CEFD1CAP8 PO; +CETI10TA PO
[2016-10-15 22:00] VITALS: BP 133/74
[2016-10-15] MEDS ORDERED: NALT1POW23 XX (22:35)
[2016-10-15] MEDS ORDERED: HYDR-643 PO (22:35)
[2016-10-15] MEDS ORDERED: ABIL1TAB11 PO (22:35)
[2016-10-15 23:28] LABS: MEAN CORPUSCULAR HEMOGLOBIN 30.4 pg (27.0-33.0); MEAN CORPUSCULAR HGB CONC 32.9 g/dl (32.0-36.5); MEAN CORPUSCULAR VOLUME 92.3 fl (80.0-96.0); RED CELL DISTRIBUTION WIDTH 14.1 % (11.5-14.5); WHITE BLOOD COUNT 11.6 K/mm3 (4.0-10.0)
[2016-10-15 23:36] LABS: CONTROL LINE HCG INT CTR LINE PRESENT
[2016-10-15 23:47] LABS: METHADONE URINE NEGATIVE (NEGATIVE)
[2016-10-15 23:49] LABS: ALBUMIN 4.1 GM/DL (3.2-5.2); ALBUMIN/GLOBULIN RATIO 0.93 (1.00-1.93); ALKALINE PHOSPHATASE 40 U/L (45-117); ALT/SGPT 21 U/L (12-78); ANION GAP 5 MEQ/L (8-16); AST/SGOT 13 U/L (15-37); BILIRUBIN,DIRECT 0.1 MG/DL (0.0-0.2); BILIRUBIN,TOTAL 0.4 MG/DL (0.2-1.0); BLOOD UREA NITROGEN 6 MG/DL (7-18); CALCIUM LEVEL 9.6 MG/DL (8.5-10.1); CARBON DIOXIDE LEVEL 28 MEQ/L (21-32); CHLORIDE LEVEL 109 MEQ/L (98-107); CREATININE FOR GFR 0.71 MG/DL (0.55-1.02); GLOMERULAR FILTRATION RATE > 60.0 (>60); GLUCOSE, FASTING 81 MG/DL (70-105); POTASSIUM SERUM 4.1 MEQ/L (3.5-5.1); SODIUM LEVEL 142 MEQ/L (136-145); TOTAL PROTEIN 8.5 GM/DL (6.4-8.2)
[2016-10-15 23:56] LABS: LITHIUM LEVEL 0.81 MEQ/L (0.60-1.20)
== END 2016-10-16 01:25 | disposition home or self-care (01) ==
LOC: M ED 21:59
DX: F31.89 Other bipolar disorder (principal); F12.159 Cannabis abuse with psychotic disorder, unspecified; F17.210 Nicotine dependence, cigarettes, uncomplicated; Z91.14 Patient's other noncompliance with medication regimen; Z88.0 Allergy status to penicillin; Z79.899 Other long term (current) drug therapy

== ENCOUNTER → 2016-10-19 | Outpatient (CLI) | payer OTHER ==
[~2016-10-19] MED LIST changes: +ABIL1TAB11 PO; +ARIP5TA PO; +DEPA1TAB3 PO; +DEPA500T2 PO; +HYDR-643 PO; +LITH45TASA PO; +LITH600C PO; +NALT1POW23 XX; +NALT50TA4 PO; +OLAN15TA PO
[2016-10-19 17:24] LABS: LITHIUM LEVEL 0.93 MEQ/L (0.60-1.20)
== END ==
LOC: M WUC 12:50
PROVIDERS: ATTEND Registered Nurse Psychiatric/Mental Health
DX: F25.0 Schizoaffective disorder, bipolar type (principal)

== ENCOUNTER 2016-10-28 15:24 | Inpatient (IN) | payer MEDICAID, OTHER ==
[~2016-10-28] VITALS: Ht 162.6 cm; Wt 92.4 kg
[~2016-10-28 15:24] MED LIST changes: -ARIP5TA PO; -DEPA1TAB3 PO; -DEPA500T2 PO; -LITH45TASA PO; -LITH600C PO; -NALT50TA4 PO; -OLAN15TA PO
[2016-10-28 17:47] LABS: MEAN CORPUSCULAR HEMOGLOBIN 30.7 pg (27.0-33.0); MEAN CORPUSCULAR HGB CONC 32.5 g/dl (32.0-36.5); MEAN CORPUSCULAR VOLUME 94.4 fl (80.0-96.0); RED CELL DISTRIBUTION WIDTH 13.9 % (11.5-14.5); WHITE BLOOD COUNT 10.3 K/mm3 (4.0-10.0)
[2016-10-28 17:58] LABS: CONTROL LINE HCG INT CTR LINE PRESENT
[2016-10-28 18:02] LABS: METHADONE URINE NEGATIVE (NEGATIVE)
[2016-10-28 18:11] LABS: ALBUMIN 3.7 GM/DL (3.2-5.2); ALKALINE PHOSPHATASE 40 U/L (45-117); ALT/SGPT 24 U/L (12-78); ANION GAP 6 MEQ/L (8-16); AST/SGOT 17 U/L (15-37); BILIRUBIN,DIRECT < 0.1 MG/DL (0.0-0.2); BILIRUBIN,TOTAL 0.3 MG/DL (0.2-1.0); BLOOD UREA NITROGEN 7 MG/DL (7-18); CALCIUM LEVEL 9.1 MG/DL (8.5-10.1); CARBON DIOXIDE LEVEL 25 MEQ/L (21-32); CHLORIDE LEVEL 110 MEQ/L (98-107); CREATININE FOR GFR 0.73 MG/DL (0.55-1.02); GLOMERULAR FILTRATION RATE > 60.0 (>60); GLUCOSE, FASTING 84 MG/DL (70-105); POTASSIUM SERUM 3.7 MEQ/L (3.5-5.1); SODIUM LEVEL 141 MEQ/L (136-145); TOTAL PROTEIN 7.4 GM/DL (6.4-8.2)
[2016-10-28 18:16] LABS: LITHIUM LEVEL 0.83 MEQ/L (0.60-1.20)
[2016-10-28] MEDS ORDERED: LITH600C PO (19:44)
[2016-10-28] MEDS ORDERED: NALT50TA4 PO (19:44)
[2016-10-28] MEDS ORDERED: OLAN15TA PO (19:44)
[2016-10-28] MEDS ORDERED: DEPA1TAB3 PO (19:44)
[2016-10-28 21:20] VITALS: BP 131/85
[2016-10-29] MEDS ORDERED: MOM 30ML SUSPENSION UDC PO PRN (00:15)
[2016-10-29] MEDS: hydrOXYzine 10 MG TAB PO PRN ×2 (00:45→14:10)
[2016-10-29] MEDS: traZODone 50 MG TAB PO PRN ×2 (00:45→19:53)
[2016-10-29 06:58] VITALS: BP 129/58
[2016-10-29 07:31] LABS: LITHIUM LEVEL 0.58 MEQ/L (0.60-1.20)
[2016-10-29] MEDS: LITHIUM CARBONATE 600 MG CAP PO SCH ×2 (08:28→19:53)
[2016-10-29] MEDS: DIVALPROEX 500 MG TAB PO SCH ×2 (08:28→19:52)
[2016-10-29] MEDS: ACETAMINOPHEN TAB 650MG DOSE (2X325MG) PO PRN ×2 (14:11→19:56)
[2016-10-29 18:00] VITALS: BP 138/80
[2016-10-29] MEDS: OLANZapine 10 MG TAB PO SCH (19:52)
[2016-10-29] MEDS: NALTREXONE 50 MG TAB PO SCH (19:53)
[2016-10-30] MEDS: hydrOXYzine 10 MG TAB PO PRN ×2 (04:06→08:29)
[2016-10-30] MEDS: ACETAMINOPHEN TAB 650MG DOSE (2X325MG) PO PRN (04:06)
[2016-10-30 06:42] VITALS: BP 130/79
[2016-10-30] MEDS: DIVALPROEX 500 MG TAB PO SCH ×2 (08:28→21:23)
[2016-10-30] MEDS: LITHIUM CARBONATE 600 MG CAP PO SCH ×2 (08:29→21:22)
[2016-10-30] MEDS ORDERED: diphenhydrAMINE 50 MG CAP PO ONE (09:00)
[2016-10-30] MEDS ORDERED: HALOPERIDOL 5 MG TAB PO ONE (09:00)
[2016-10-30] MEDS ORDERED: LORazepam 2 MG TAB PO ONE (09:00)
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
[2016-10-30 18:39] VITALS: BP 122/78
[2016-10-30] MEDS: NALTREXONE 50 MG TAB PO SCH (21:23)
[2016-10-30] MEDS: traZODone 50 MG TAB PO PRN (21:24)
[2016-10-30] MEDS: OLANZapine 10 MG TAB PO SCH (21:24)
--- NOTE | 2016-10-31 06:29 | IPN ---
DATE: 10/30/2016 The patient is pretty psychotic and agitated this morning and so we gave her as needed medication of Haldol 5 mg, Ativan 2 mg and Benadryl 50 mg and then the patient has been sleeping since then. I did not wake her up as I thought it would be contraindicated in her case. We do have her on one-to-one observation level. She had been going around the unit non stop and it was really disturbing to the other patients at that point. MENTAL STATUS EXAMINATION: I was unable to do the mental status as noted above. DIAGNOSIS: Bipolar disorder type I, manic, with psychotic symptoms. TREATMENT PLAN: At this point, we will continue one-to-one observation level and will continue to titrate her medications as indicated for continued manic and psychotic symptoms.
[2016-10-31 06:52] VITALS: BP 112/62
[2016-10-31] MEDS: DIVALPROEX 500 MG TAB PO SCH ×2 (08:47→20:09)
[2016-10-31] MEDS: LITHIUM CARBONATE 600 MG CAP PO SCH ×2 (08:47→20:09)
--- NOTE | 2016-10-31 09:12 | HPE ---
DATE OF ADMISSION: 10/28/2016 HISTORY OF PRESENT ILLNESS: Please refer to the psychiatric history and evaluation for further details on this admission. This examination and history is intended for medical issues which may need treatment, followup or consultation on this 26-year-old female. PRIMARY CARE PROVIDER: Dr. Branden Dalton. ALLERGIES: PENICILLIN Information is collected from the medical record. The patient is confused, having delusions about being , having seven children, nondenominational delusions. Is completely confused as to where she is, what she is doing. We were unable to perform any type of review of systems. Per The Record: PAST MEDICAL HISTORY: Schizophrenia Bipolar. Manic with psychotic symptoms, severe. PAST SURGICAL HISTORY: Negative. SOCIAL HISTORY: She lives in [place]. She is , has one child, Unemployed. Does not smoke. Does no drink alcohol. Does not use any recreational drugs. HOME MEDICATIONS: Per the record. - Abilify 5 mg by mouth daily - Depakote 1500 mg by mouth nightly - Depakote 500 mg by mouth daily - hydroxyzine 10 mg by mouth nightly as needed anxiety - lithium 600 mg by mouth twice a day - naltrexone 50 mg by mouth nightly - olanzapine 30 mg by mouth nightly LABORATORY STUDIES: WBC 10.3, hemoglobin 11.2, hematocrit 34.4, platelets 240. Sodium 141, potassium 3.7, chloride 110, CO2 25, BUN 7, creatinine 0.73, lithium on 10/28/2016 was 0.83, recheck on 10/29/2016 0.58. Valproic acid on 10/28/2016 was 83.8, on 10/29/2016 55.6. REVIEW OF SYSTEMS: Unable to obtain review of systems. PHYSICAL EXAMINATION: 26-year-old female acting very confused and bizarre. Limited exam performed. Height 64 inches, weight 90.9 kilograms. Body mass index (BMI) 34.4. Blood pressure 134/79, pulse 88, respirations 16, temperature 98.6. Th patient is oriented to person only. Pupils equal and reactive to light. Pharynx, tongue, and gums pink and moist. Tongue is midline. Chest, clear to auscultation. Heart is regular. Abdomen benign. Bowel sounds positive. /Rectal: Not done. The patient is moving all extremities spontaneously well with purpose. Skin is warm and dry. IMPRESSION AND PLAN: Psychiatric: Plan per psychiatry. No acute medical issues.
--- NOTE | 2016-10-31 13:51 | MHIPN ---
DATE: 10/31/2016 VITAL SIGNS: Temperature 97.7, pulse 80, respirations 16, blood pressure 112/62 , CURRENT MEDICATIONS: - Depakote 1500 mg nightly - naltrexone 50 mg nightly - Zyprexa 30 mg nightly - Abilify 5 mg q a.m. - Depakote 500 mg q a.m. - lithium carbonate 600 mg twice a day - trazodone 50 mg nightly as needed HISTORY OF PRESENT ILLNESS: This is a 26-year-old female admitted by Dr. Langford with the diagnosis of bipolar disorder, manic with psychotic features. The patient has been showing bizarre behavior recently. She has been dancing in the street. She has been going to grocery stores and eating foot off the shelves. The patient had stopped taking her psychotropics. She has a history of noncompliance with her medications. The patient was recently hospitalized at [facility]. Those records are not available. She was treated her February 2016. The patient does continue to show psychotic symptoms here on the unit. She has been acting in bizarre fashion. She has been sexually provocative with male patients. She is requiring one-on-one supervision for her safety and the safety of others. Th patient has been religiously preoccupied here on the floor. She has been isolating to her bed, primarily with only minimal episodes of going out to the day room. MENTAL STATUS EXAMINATION: The patient appears alert and oriented. Insight is poor. Judgment is poor. She appears paranoid. She is religiously preoccupied. She is sexually preoccupied. She appears to be responding to internal stimuli. Appears to be having auditory hallucinations, though she denies it. The patient has had delusions about being . DIAGNOSIS: Bipolar type manic with psychotic features, rule out schizoaffective disorder, bipolar type. PLAN: Continue current psychotropics. MTDD
[2016-10-31 18:00] VITALS: BP 130/58
[2016-10-31] MEDS: OLANZapine 10 MG TAB PO SCH (20:08)
[2016-10-31] MEDS: NALTREXONE 50 MG TAB PO SCH (20:09)
[2016-11-01 07:11] VITALS: BP 113/58
[2016-11-01] MEDS: DIVALPROEX 500 MG TAB PO SCH ×2 (08:15→20:26)
[2016-11-01] MEDS: LITHIUM CARBONATE 600 MG CAP PO SCH ×2 (08:15→20:26)
--- NOTE | 2016-11-01 11:28 | MHIPN ---
DATE OF SERVICE: 11/01/2016 VITAL SIGNS: Temperature 97.9, pulse 74, respiration 16, blood pressure 113/58. CURRENT MEDICATIONS: - Depakote 500 mg every morning, 1500 mg at bedtime - lithium 600 mg twice a day - Zyprexa 30 mg at bedtime - Abilify 5 mg every day - trazodone 50 mg at bedtime as needed HISTORY OF PRESENT ILLNESS: The patient is more verbal today. She states that her mood is more stable. She claims her thinking is more clear. She has goals in life to be able to function better. The patient ventilates about her divorce. She and her are now . She has a 1-1/2-year-old baby boy. Her aloffe-ro-sjn is taking care of the infant while the patient is currently in the hospital. The patient has a history of poor medication compliance. She may be a candidate for the Abilify Maintena monthly injection. The patient still appears impulsive and requires one-on-one monitoring. MENTAL STATUS EXAMINATION: The patient is more alert today. She is oriented. She is more cooperative. Insight seems improved. Judgment seems improved. The patient still responding to internal stimuli. She hears voices, though she minimizes it. Delusional beliefs about being are receding. She appears less paranoid and less grandiose. Speech is still rapid with some signs of [place]. DIAGNOSIS: Bipolar type manic with psychotic features, rule out schizoaffective disorder bipolar type. PLAN: Continue psychotropics. Blood level is pending for Depakote and lithium. The patient may be a candidate for Abilify monthly injection.
[2016-11-01 18:00] VITALS: BP 114/64
[2016-11-01] MEDS: hydrOXYzine 10 MG TAB PO PRN (20:26)
[2016-11-01] MEDS: traZODone 50 MG TAB PO PRN (20:26)
[2016-11-01] MEDS: OLANZapine 10 MG TAB PO SCH (20:26)
[2016-11-01] MEDS: NALTREXONE 50 MG TAB PO SCH (20:26)
[2016-11-02 07:03] VITALS: BP 117/59
[2016-11-02 07:46] LABS: LITHIUM LEVEL 0.72 MEQ/L (0.60-1.20)
[2016-11-02] MEDS: DIVALPROEX 500 MG TAB PO SCH ×2 (09:33→20:03)
[2016-11-02] MEDS: LITHIUM CARBONATE 600 MG CAP PO SCH ×2 (09:33→20:02)
[2016-11-02] MEDS: ACETAMINOPHEN TAB 650MG DOSE (2X325MG) PO PRN ×2 (13:01→20:03)
[2016-11-02 18:00] VITALS: BP 143/75
[2016-11-02] MEDS: NALTREXONE 50 MG TAB PO SCH (20:02)
[2016-11-02] MEDS: hydrOXYzine 10 MG TAB PO PRN (20:03)
[2016-11-02] MEDS: OLANZapine 10 MG TAB PO SCH (20:03)
[2016-11-03 06:35] VITALS: BP 107/59
[2016-11-03] MEDS: DIVALPROEX 500 MG TAB PO SCH ×2 (09:07→20:39)
[2016-11-03] MEDS: LITHIUM CARBONATE 600 MG CAP PO SCH ×2 (09:07→20:39)
[2016-11-03] MEDS ORDERED: ARIPiprazole MONOHYDRATE 400 MG INJ (ABILIFY)(J0401) IM ONE (13:00)
[2016-11-03 18:00] VITALS: BP 140/93
[2016-11-03] MEDS: NALTREXONE 50 MG TAB PO SCH (20:39)
[2016-11-03] MEDS: traZODone 50 MG TAB PO PRN (20:39)
[2016-11-03] MEDS: OLANZapine 10 MG TAB PO SCH (20:39)
--- NOTE | 2016-11-03 21:58 | MHIPN ---
DATE: 11/02/2016 VITAL SIGNS: Temperature 97.4, pulse 79, respirations 18, blood pressure 117/59. CURRENT MEDICATIONS: - Depakote 500 mg in the morning and 1500 mg at night - Zyprexa 30 mg at night - Abilify 5 mg in the morning - lithium 600 mg twice a day - trazodone 50 mg at night as needed - naltrexone 50 mg at night HISTORY OF PRESENT ILLNESS: The patient still requires a one to one sitter due to her poor impulse control. She is sexually preoccupied. She also is preoccupied by God and denominational issues. She talks to herself. She is responding to internal stimuli. She is delusional claiming that she is with seven babies. The patient is too psychotic to attend group therapy program. She claims that her appetite is good. She reports sleeping better last night. The patient's updated blood levels, lithium and Depakote, are pending. She has no other complaints. MENTAL STATUS EXAMINATION: The patient is alert, oriented. She is cooperative today. She smiles easily. She denies feeling depressed. She does appear hypomanic. Insight is poor. Judgment is poor. She is not paranoid but does have denominational and sexual preoccupation. The patient is still hearing voices. She has delusional beliefs. Grooming and hygiene are marginal. DIAGNOSES: 1. Bipolar disorder, manic with psychotic features. 2. Rule out schizoaffective disorder, bipolar type. PLAN: Continue psychotropics. Blood levels are pending.
[2016-11-04 06:26] VITALS: BP 107/59
[2016-11-04] MEDS: DIVALPROEX 500 MG TAB PO SCH ×2 (09:15→21:40)
[2016-11-04] MEDS: LITHIUM CARBONATE 600 MG CAP PO SCH ×2 (09:15→21:40)
[2016-11-04] MEDS ORDERED: ARIPiprazole MONOHYDRATE 400 MG INJ (ABILIFY)(J0401) IM ONE (10:00)
--- NOTE | 2016-11-04 11:24 | MHIPN ---
DATE: 11/03/2016 VITAL SIGNS: Temperature 98.6, pulse 79, respiration 16, blood pressure 107/59. CURRENT MEDICATION: - Depakote 500 mg every a.m., 1500 mg at bedtime - Abilify 5 mg every day - Zyprexa 30 mg at bedtime - naltrexone 50 mg at night - lithium 600 mg twice a day - trazodone 50 mg at night as needed HISTORY OF PRESENT ILLNESS: The patient is still requiring one to one supervision due to poor impulse control. Patient is still delusional, for example she states that she is convinced that she is with seven babies. Patient has been told that her test is negative, but she claims that the doctors have it all wrong. She claims her appetite is good. She reports sleeping better at night. The patient's lithium level is therapeutic at 0.72. Her Depakote level is elevated, however, at 114.7. We have discussed for several days now the pros and cons of the Abilify Maintena injection, she is consistently agreeable. Her outpatient provider has called in too requesting she go on a monthly injection due to her history of poor medication compliance leading to frequent hospitalizations. Patient has been on the old Abilify for the past 3-4 months now and appears to be tolerating it well. MENTAL STATUS EXAMINATION: The patient is pleasant toda. She appears alert. She is oriented. She is reasonably cooperative. Insight and judgment are fair. Patient still responding to internal stimuli. She is still talking to herself. She admits to hearing voices. Patient is delusional regarding the . Speech is not as pressured. Manic symptoms less prominent. DIAGNOSES: 1. Bipolar disorder, manic type with psychotic features. 2. Rule out schizoaffective disorder, bipolar type. PLAN: Reduce at bedtime Depakote to 1000 mg at bedtime. No change in lithium. Add Abilify Maintena 400 mg IM.
--- NOTE | 2016-11-04 12:03 | IPNPDOC ---
Date Seen The patient was seen on 11/04/16. Progress Note HISTORY OF PRESENT ILLNESS: Pt is currently admitted to [facility] for bipolar disorder. I was requested to re evaluate the pt related to an irritated area Left groin area. Pt states it comes and goes and sometimes drains liquid on its own. PAST MEDICAL HISTORY: Schizophrenia Bipolar. Manic with psychotic symptoms, severe. PAST SURGICAL HISTORY: denies PHYSICAL EXAMINATION: 26-year-old female flat affect. Avoids eye contact. Pupils equal and reactive to light. Pharynx, tongue, and gums pink and moist. Tongue is midline. Chest, clear to auscultation. Heart is regular. Abdomen benign. Bowel sounds positive. The patient is moving all extremities spontaneously well. Skin is warm and dry. There is an area Left groin with inflammation of hair follicles with a few papules and pustules noted, no drainage currently. The area appears to have already drained. No erythema. Minimal TTP. No fluctuant areas. IMPRESSION AND PLAN: 1. Bipolar disorder. Mgmt as per Psychiatry. 2. Hydradenitis suppurativa. Afebrile. Appears to be mild. No Abscess at this time. Keep area clean and dry. Doxycycline 100mg po BID x 10 days. Monitor. 3. Staff member Hien LARA present throughout exam. VS, I&O, 24H, Fishbone Vital Signs/I&O Vital Signs Date Time Temp Pulse Resp B/P (MAP) Pulse Ox O2 Delivery O2 Flow Rate FiO2 11/04/16 06:26 97.5 70 18 107/59 (75) Room Air Kathie Dumont Nov 04, 2016 12:03
[2016-11-04] MEDS: DOXYCYCLINE HYCLATE 100 MG TAB PO SCH ×2 (13:14→21:40)
[2016-11-04 18:00] VITALS: BP 103/60
[2016-11-04] MEDS: MAALOX 30 ML SUSP *UDC PO PRN (18:27)
[2016-11-04] MEDS: OLANZapine 10 MG TAB PO SCH (21:40)
[2016-11-04] MEDS: traZODone 50 MG TAB PO PRN (21:40)
[2016-11-04] MEDS: NALTREXONE 50 MG TAB PO SCH (21:40)
[2016-11-05 06:57] VITALS: BP 113/70
[2016-11-05] MEDS: DIVALPROEX 500 MG TAB PO SCH ×2 (09:23→20:02)
[2016-11-05] MEDS: LITHIUM CARBONATE 600 MG CAP PO SCH ×2 (09:23→20:02)
[2016-11-05] MEDS: DOXYCYCLINE HYCLATE 100 MG TAB PO SCH ×2 (09:23→20:02)
[2016-11-05] MEDS: ACETAMINOPHEN TAB 650MG DOSE (2X325MG) PO PRN (17:21)
[2016-11-05 18:00] VITALS: BP 120/55
[2016-11-05] MEDS: OLANZapine 10 MG TAB PO SCH (20:01)
[2016-11-05] MEDS: hydrOXYzine 10 MG TAB PO PRN (20:01)
[2016-11-05] MEDS: NALTREXONE 50 MG TAB PO SCH (20:01)
[2016-11-05] MEDS: traZODone 50 MG TAB PO PRN (20:02)
[2016-11-06 07:02] VITALS: BP_SYST 117; BP_SYST 127; BP_DIAS 64; BP_DIAS 72
[2016-11-06] MEDS: LITHIUM CARBONATE 600 MG CAP PO SCH ×2 (09:26→20:10)
[2016-11-06] MEDS: DIVALPROEX 500 MG TAB PO SCH ×2 (09:26→20:11)
[2016-11-06] MEDS: DOXYCYCLINE HYCLATE 100 MG TAB PO SCH ×2 (09:26→20:11)
--- NOTE | 2016-11-06 12:50 | MHIPN ---
DATE: 11/04/2016 VITAL SIGNS: Temperature 97.5, pulse 70, respiration 18, blood pressure 107/59. CURRENT MEDICATIONS: - Depakote 500 mg every morning and 1000 mg at bedtime - Naltrexone 50 mg at bedtime - Zyprexa 30 mg at bedtime - Abilify 5 mg daily - lithium 600 mg twice a day - trazodone 50 mg at bedtime as needed for sleep HISTORY OF PRESENT ILLNESS: The patient is still delusional about being with seven babies. She is requesting food for including salt and vinegar chips, whatever that is, and pickles. She reports her appetite is good. She reports she is sleeping well at night and explains that she is getting good rest for her babies. The patient did cooperative with the Abilify Maintena injection. The patient still talks to herself. She appears to be responding to internal stimuli. She laughs to herself. Most of the day, she spends in bed. She will walk the corridors at times but has been going to some groups and activities. Behavior is more appropriate but she still needs structure. She still needs one on one due to her poor impulse control. MENTAL STATUS EXAMINATION: The patient is alert, oriented and cooperative. She denies feeling depressed. She does feel a bit manic but in good control she asserts. The patient is still responding to internal stimuli. She is hearing voices. She denies paranoia but is delusional about the . Insight and judgment are poor. DIAGNOSES: 1. Bipolar disorder, manic with psychotic features. 2. Rule out schizoaffective disorder, bipolar type. PLAN: Continue current psychotropic medications. The patient informed that she will have a new psychiatrist as of next week.
[2016-11-06 18:00] VITALS: BP 130/61
[2016-11-06] MEDS: hydrOXYzine 10 MG TAB PO PRN (20:09)
[2016-11-06] MEDS: traZODone 50 MG TAB PO PRN (20:11)
[2016-11-06] MEDS: OLANZapine 10 MG TAB PO SCH (20:11)
[2016-11-06] MEDS: NALTREXONE 50 MG TAB PO SCH (20:11)
[2016-11-07] MEDS: hydrOXYzine 10 MG TAB PO PRN ×2 (05:15→20:23)
[2016-11-07 06:30] VITALS: BP 109/61
--- NOTE | 2016-11-07 08:32 | MHIPN ---
DATE: 11/05/2016 CHIEF COMPLAINT: Says feels good. SUBJECTIVE: Seen for followup, in the presence of staff. Says feels good, later suggests she feels "the real me" and that she has never felt that before. Says has been sleeping better, she says appetite is good. MENTAL STATUS EXAMINATION: She is neat. She is cooperative and has a broad affect. No agitation. No psychomotor retardation. Her speech is spontaneous and coherent. She does not appear internally preoccupied when I saw her with staff, but was talking to herself when seen in the hallway a little later, and is responding to internal stimuli. Judgment and insight remain compromised, delusions remain present, thought not overtly present. ASSESSMENT: Bipolar disorder, current episode manic with psychotic features. Rule out schizoaffective disorder, bipolar type. PLAN: Continue current care and observations, requires one-on-one observation for now.
[2016-11-07] MEDS: DOXYCYCLINE HYCLATE 100 MG TAB PO SCH ×2 (08:36→20:24)
[2016-11-07] MEDS: LITHIUM CARBONATE 600 MG CAP PO SCH ×2 (08:36→20:23)
[2016-11-07] MEDS: DIVALPROEX 500 MG TAB PO SCH ×2 (08:36→20:23)
[2016-11-07] MEDS: ACETAMINOPHEN TAB 650MG DOSE (2X325MG) PO PRN ×2 (08:37→20:24)
--- NOTE | 2016-11-07 17:33 | MHIPNPDOC ---
[facility] Progress Note Progress Note DATE OF SERVICE: 11/07/16 HISTORY: Patient was seen and evaluated for her progress in the inpatient unit. on evaluation, patient reported that she is worried about being infected with HIV and also thinking that she is , even though she has been told multiple times that she is not . Her Depakote level came out to be in therapeutic range, and HIV was negative. Patient continued to pace in the unit and seemed to have poor hygiene and grooming. He is unpredictable and unable to hold a conversation for a long time. Today, she was asking about 'red minal' to all the staff. She reported that she would like to get discharged, but not able to assess plans of what will happen after the discharge. She denies any auditory or visual hallucinations, but continued to report that she is paranoid about people watching her. VITAL SIGNS: See below. CURRENT MEDICATIONS: See below. MENTAL STATUS EXAMINATION: 26yo female sitting in the chair, looks older than the stated age, poor hygiene and grooming, increased psychomotor activities, no abnormal movements, superficially cooperative with fair eye contact, speech is increased in rate, normal rhythm, amount and prosody, mood is irritable, affect full and mood congruent, thought process is tangential & circumstantial at times, denies suicidal and homicidal ideations, denies hallucinations, paranoid, aaox3, limited insight, judgement and impulse control DIAGNOSES: 1. Schizoaffective disorder, bipolar type versus bipolar disorder with psychosis. ASSESSMENT: Patient's symptom be improving on current treatment MANAGEMENT PLAN:. Continue current management. TIME SPENT:. 15 minutes. Vital Signs Vital Signs Date Time Temp Pulse Resp B/P (MAP) Pulse Ox O2 Delivery O2 Flow Rate FiO2 11/07/16 06:30 97.8 79 18 109/61 (77) Room Air Laboratory Data 24H Labs Laboratory Tests 2 11/07/16 09:03: Valproic Acid (Depakene) Level 89.7, HIV Antigen/Antibody Combo Qual NEGATIVE Current Medications Current Medications Aripiprazole (AbiLIFY) 5 mg DAILY PO Last administered on 11/07/16 08:36; Start 10/29/16 at 09:00; Stop 11/28/16 at 08:59 Divalproex Sodium (Depakote) 500 mg DAILY PO Last administered on 11/07/16 08: 36; Start 10/29/16 at 09:00; Stop 11/28/16 at 08:59 Divalproex Sodium (Depakote) 1,000 mg QHS PO Last administered on 11/06/16 20: 11; Start 11/03/16 at 21:00; Stop 12/03/16 at 20:59 Hydroxyzine HCl (Atarax) 10 mg Q8HP PRN PO ANXIETY Last administered on 05:15; Start 10/29/16 at 00:15; Stop 11/28/16 at 00:14 [place] Carbonate ([place] Carbonate) 600 mg BID PO Last administered on 08:36; Start 10/29/16 at 09:00; Stop 11/28/16 at 08:59 Naltrexone HCl (Revia) 50 mg QHS PO Last administered on 11/06/16 20:11; Start 10/29/16 at 21:00; Stop 11/28/16 at 20:59 Olanzapine (ZyPREXA) 30 mg QHS PO Last administered on 11/06/16 20:11; Start 10/29/16 at 21:00; Stop 11/28/16 at 20:59 Trazodone HCl (Desyrel) 50 mg QHSP PRN PO INSOMNIA Last administered on 20:11; Start 10/29/16 at 00:15; Stop 11/28/16 at 00:14 Allergies Coded Allergies: Penicillins (Verified Allergy, Unknown, 06/19/12) SABINO HINOJOSA MD Nov 07, 2016 17:33
[2016-11-07 18:00] VITALS: BP 125/73
[2016-11-07] MEDS: NALTREXONE 50 MG TAB PO SCH (20:23)
[2016-11-07] MEDS: traZODone 50 MG TAB PO PRN (20:24)
[2016-11-07] MEDS: OLANZapine 10 MG TAB PO SCH (20:24)
[2016-11-08] MEDS: ACETAMINOPHEN TAB 650MG DOSE (2X325MG) PO PRN ×2 (05:31→20:10)
--- NOTE | 2016-11-08 06:32 | MHIPN ---
DATE: 11/06/2016 CHIEF COMPLAINT: Stays feels good. SUBJECTIVE: Seen for followup, in the presence of staff. Says feels better, and that she feels she , though she also suggests that she has been bleeding a bit. Says she has been before, and is therefore aware of the feelings. She slept better, in fact slept through the better part of the morning, says feels rested. Appetite is good. MENTAL STATUS EXAMINATION: She is neat. She is cooperative. She is coherent. No agitation, no psychomotor retardation. Affect is fairly broad. She denies any thoughts of harming herself or anyone else. Remains deluded. Judgment and insight are compromised. ASSESSMENT: Bipolar disorder, current episode manic with psychotic features. PLAN: Continue current care, including one-to-one observations for now. VITAL SIGNS: Blood pressure 117/64, pulse 76, temperature 97.9. She will be seen by the assigned clinicians tomorrow, and further recommendations will be made.
[2016-11-08 07:39] VITALS: BP 117/65
[2016-11-08] MEDS: DOXYCYCLINE HYCLATE 100 MG TAB PO SCH ×2 (09:03→20:09)
[2016-11-08] MEDS: LITHIUM CARBONATE 600 MG CAP PO SCH ×2 (09:03→20:09)
[2016-11-08] MEDS: DIVALPROEX 500 MG TAB PO SCH ×2 (09:03→20:09)
[2016-11-08 18:00] VITALS: BP 136/68
[2016-11-08] MEDS: MAALOX 30 ML SUSP *UDC PO PRN (18:52)
--- NOTE | 2016-11-08 19:15 | MHIPNPDOC ---
[facility] Progress Note Progress Note DATE OF SERVICE: 11/08/16 HISTORY: Patient was seen and evaluated for her progress in the inpatient psychiatric unit on the evaluation. Patient reported that she is still asking around for vania Lowery because somewhere. She said that her name means vania lowery, even though she would like to have a feminine meaning of the name. Patient was drowsy and sleepy, reported that she is trying to catch up with some sleep after not able to sleep well. Recently, she denies any suicidal or homicidal ideations, also denies any paranoia. She also denies any hallucinations, eating well, denies any weight loss. She continued to need constant observation one-on- one for safety. VITAL SIGNS: See below. CURRENT MEDICATIONS: See below. MENTAL STATUS EXAMINATION: 26yo female sitting in the chair, looks older than the stated age, poor hygiene and grooming, increased psychomotor activities, no abnormal movements, superficially cooperative with fair eye contact, speech is increased in rate, normal rhythm, amount and prosody, mood is irritable, affect full and mood congruent, thought process is tangential & circumstantial at times, denies suicidal and homicidal ideations, denies hallucinations, paranoid, aaox3, limited insight, judgement and impulse control DIAGNOSES: 1. Schizoaffective disorder, bipolar type versus bipolar disorder with psychosis. MANAGEMENT PLAN: Continue current treatment. TIME SPENT:. 15 minutes. Vital Signs Vital Signs Date Time Temp Pulse Resp B/P (MAP) Pulse Ox O2 Delivery O2 Flow Rate FiO2 11/08/16 18:00 98.4 101 16 136/68 (90) Room Air Current Medications Current Medications Acetaminophen (Tylenol Tab) 650 mg Q6HP PRN PO HEADACHE or DISCOMFORT Last administered on 11/08/16 05:31; Start 10/29/16 at 00:15; Stop 11/28/16 at 00:14 Al Hydrox/Mg Hydrox/Simethicone (Mylanta) 30 ml Q4HP PRN PO HEARTBURN/ INDIGESTION Last administered on 11/08/16 18:52; Start 10/29/16 at 00:15; Stop 11/28/16 at 00:14 Aripiprazole (AbiLIFY) 5 mg DAILY PO Last administered on 11/08/16 09:03; Start 10/29/16 at 09:00; Stop 11/28/16 at 08:59 Divalproex Sodium (Depakote) 500 mg DAILY PO Last administered on 11/08/16 09: 03; Start 10/29/16 at 09:00; Stop 11/28/16 at 08:59 Divalproex Sodium (Depakote) 1,000 mg QHS PO Last administered on 11/07/16 20: 23; Start 11/03/16 at 21:00; Stop 12/03/16 at 20:59 Divalproex Sodium (Depakote) 1,500 mg QHS PO Last administered on 11/02/16 20: 03; Start 10/29/16 at 21:00; Stop 11/03/16 at 12:29; Status DC Doxycycline Hyclate (Vibramycin) 100 mg BID PO Last administered on 11/08/16 09:03; Start 11/04/16 at 09:00; Stop 11/14/16 at 08:59 Home Med (Med Rec Complete!) ASDIRECTED XX ; Start 10/28/16 at 19:45; Stop 03/05 at 00:35; Status DC Hydroxyzine HCl (Atarax) 10 mg Q8HP PRN PO ANXIETY Last administered on 20:23; Start 10/29/16 at 00:15; Stop 11/28/16 at 00:14 [place] Carbonate ([place] Carbonate) 600 mg BID PO Last administered on 09:03; Start 10/29/16 at 09:00; Stop 11/28/16 at 08:59 Magnesium Hydroxide (Milk Of Magnesia) 30 ml DAILYPRN PRN PO CONSTIPATION; Start 10/29/16 at 00:15; Stop 11/28/16 at 00:14 Naltrexone HCl (Revia) 50 mg QHS PO Last administered on 11/07/16 20:23; Start 10/29/16 at 21:00; Stop 11/28/16 at 20:59 Olanzapine (ZyPREXA) 30 mg QHS PO Last administered on 11/07/16 20:24; Start 10/29/16 at 21:00; Stop 11/28/16 at 20:59 Trazodone HCl (Desyrel) 50 mg QHSP PRN PO INSOMNIA Last administered on 20:24; Start 10/29/16 at 00:15; Stop 11/28/16 at 00:14 Allergies Coded Allergies: Penicillins (Verified Allergy, Unknown, 06/19/12) SABINO HINOJOSA MD Nov 08, 2016 19:15
[2016-11-08] MEDS: hydrOXYzine 10 MG TAB PO PRN (20:09)
[2016-11-08] MEDS: OLANZapine 10 MG TAB PO SCH (20:09)
[2016-11-08] MEDS: NALTREXONE 50 MG TAB PO SCH (20:10)
[2016-11-09 07:00] VITALS: BP 108/59
[2016-11-09] MEDS: DIVALPROEX 500 MG TAB PO SCH ×2 (08:56→20:29)
[2016-11-09] MEDS: LITHIUM CARBONATE 600 MG CAP PO SCH ×2 (08:56→20:29)
[2016-11-09] MEDS: DOXYCYCLINE HYCLATE 100 MG TAB PO SCH ×2 (08:57→20:29)
[2016-11-09 18:00] VITALS: BP 119/59
--- NOTE | 2016-11-09 18:05 | MHIPNPDOC ---
[facility] Progress Note Progress Note DATE OF SERVICE: 11/09/16 HISTORY: Patient was seen and evaluated. She continued to sleep late during the day and has limited participation in the unit activities and limited interaction with others in the unit, but no bizarre behavior or agitation or aggressive behavior in the unit, patient walks around in the unit, but has poor hygiene and grooming. Today she was asking everyone about why she is incapacitated while before coming to the hospital. She was able to function by herself and do everything by herself. She denies any suicidal or homicidal ideations. She also denies any hallucinations but her behavior remains odd. Patient accepted that she was sexually preoccupied. When she came in and has difficulty to remember what was making her act like that, but now she denies similar thinking. Patient was discussed in the team meeting and planning to have a break from constant observation at the sleep time. If patient is able to function without constant observation during that time, we will try to reduce the observation, further down, eating and sleeping fine and denies any suicidal or homicidal ideation. VITAL SIGNS: See below. CURRENT MEDICATIONS: VITAL SIGNS: See below. CURRENT MEDICATIONS: See below. MENTAL STATUS EXAMINATION: 26yo female sitting in the chair, looks older than the stated age, poor hygiene and grooming, increased psychomotor activities, no abnormal movements, superficially cooperative with fair eye contact, speech is increased in rate, normal rhythm, amount and prosody, mood is irritable, affect full and mood congruent, thought process is tangential & circumstantial at times, denies suicidal and homicidal ideations, denies hallucinations, paranoid, aaox3, limited insight, judgement and impulse control DIAGNOSES: 1. Schizoaffective disorder, bipolar type versus bipolar disorder with psychosis. MANAGEMENT PLAN: Continue current treatment. TIME SPENT:. 15 minutes. Vital Signs Vital Signs Date Time Temp Pulse Resp B/P (MAP) Pulse Ox O2 Delivery O2 Flow Rate FiO2 11/09/16 07:00 97.8 68 16 108/59 (75) 11/08/16 18:00 Room Air Current Medications Current Medications Acetaminophen (Tylenol Tab) 650 mg Q6HP PRN PO HEADACHE or DISCOMFORT Last administered on 11/08/16t 20:10; Start 10/29/16 at 00:15; Stop 11/28/16 at 00:14 Al Hydrox/Mg Hydrox/Simethicone (Mylanta) 30 ml Q4HP PRN PO HEARTBURN/ INDIGESTION Last administered on 11/08/16 18:52; Start 10/29/16 at 00:15; Stop 11/28/16 at 00:14 Aripiprazole (AbiLIFY) 5 mg DAILY PO Last administered on 11/09/16 08:56; Start 10/29/16 at 09:00; Stop 11/28/16 at 08:59 Divalproex Sodium (Depakote) 500 mg DAILY PO Last administered on 11/09/16 08: 56; Start 10/29/16 at 09:00; Stop 11/28/16 at 08:59 Divalproex Sodium (Depakote) 1,000 mg QHS PO Last administered on 11/08/16 20: 09; Start 11/03/16 at 21:00; Stop 12/03/16 at 20:59 Divalproex Sodium (Depakote) 1,500 mg QHS PO Last administered on 11/02/16 20: 03; Start 10/29/16 at 21:00; Stop 11/03/16 at 12:29; Status DC Doxycycline Hyclate (Vibramycin) 100 mg BID PO Last administered on 11/09/16 08:57; Start 11/04/16 at 09:00; Stop 11/14/16 at 08:59 Home Med (Med Rec Complete!) ASDIRECTED XX ; Start 10/28/16 at 19:45; Stop 03/05 at 00:35; Status DC Hydroxyzine HCl (Atarax) 10 mg Q8HP PRN PO ANXIETY Last administered on 20:09; Start 10/29/16 at 00:15; Stop 11/28/16 at 00:14 [place] Carbonate ([place] Carbonate) 150 mg BID PO ; Start 11/09/16 at 21:00; Stop 12/09/16 at 20:59 [place] Carbonate ([place] Carbonate) 600 mg BID PO Last administered on 08:56; Start 10/29/16 at 09:00; Stop 11/09/16 at 13:13; Status DC [place] Carbonate ([place] Carbonate) 600 mg BID PO ; Start 11/09/16 at 21:00; Stop 12/09/16 at 20:59 Magnesium Hydroxide (Milk Of Magnesia) 30 ml DAILYPRN PRN PO CONSTIPATION; Start 10/29/16 at 00:15; Stop 11/28/16 at 00:14 Naltrexone HCl (Revia) 50 mg QHS PO Last administered on 11/08/16 20:10; Start 10/29/16 at 21:00; Stop 11/28/16 at 20:59 Olanzapine (ZyPREXA) 30 mg QHS PO Last administered on 11/08/16 20:09; Start 10/29/16 at 21:00; Stop 11/28/16 at 20:59 Trazodone HCl (Desyrel) 50 mg QHSP PRN PO INSOMNIA Last administered on 20:24; Start 10/29/16 at 00:15; Stop 11/28/16 at 00:14 Allergies Coded Allergies: Penicillins (Verified Allergy, Unknown, 06/19/12) SABINO HINOJOSA MD Nov 09, 2016 18:05
[2016-11-09] MEDS: OLANZapine 10 MG TAB PO SCH (20:29)
[2016-11-09] MEDS: hydrOXYzine 10 MG TAB PO PRN (20:29)
[2016-11-09] MEDS: LITHIUM CARBONATE 150 MG CAP PO SCH (20:29)
[2016-11-09] MEDS: NALTREXONE 50 MG TAB PO SCH (20:29)
[2016-11-09] MEDS: ACETAMINOPHEN TAB 650MG DOSE (2X325MG) PO PRN (20:31)
[2016-11-10 06:18] VITALS: BP 121/51
[2016-11-10] MEDS: DIVALPROEX 500 MG TAB PO SCH (09:43)
[2016-11-10] MEDS: DOXYCYCLINE HYCLATE 100 MG TAB PO SCH ×2 (09:44→21:28)
[2016-11-10] MEDS: LITHIUM CARBONATE 600 MG CAP PO SCH ×2 (09:44→21:28)
[2016-11-10] MEDS: LITHIUM CARBONATE 150 MG CAP PO SCH ×2 (09:44→21:29)
--- NOTE | 2016-11-10 14:53 | MHIPNPDOC ---
[facility] Progress Note Progress Note DATE OF SERVICE: 11/10/16 HISTORY: Patient was seen and evaluated for progress in the psychiatric unit. On evaluation, patient reported that she has been feeling better but has been sleeping for about 14-15 hours a day. She reported that she has been having long sleep for some time and this is not new for her to sleep for 14-15 hours, even without the medications. She reported that she was sleeping for a long time , but reported when her mood is high, She sleeps less and later on once he is back to normal Mood she sleeps more. She denies any suicidal or homicidal ideations. She is somewhat religiously preoccupied, but reported that she always has been temple in nature. Denies any hallucinations, denies any sexual parts coming to mind over and over. Denies multiple talks running through her mind and also denies appetite problems. She is willing to stop sleep medication. Trazodone and also change Depakote to Depakote ER. Will consider stopping by mouth Abilify soon. VITAL SIGNS: See below. CURRENT MEDICATIONS: See below. MENTAL STATUS EXAMINATION: 26yo female sitting in the chair, looks older than the stated age, poor hygiene and grooming, increased psychomotor activities, no abnormal movements, superficially cooperative with fair eye contact, speech is increased in rate, normal rhythm, amount and prosody, mood is irritable, affect full and mood congruent, thought process is tangential & circumstantial at times, denies suicidal and homicidal ideations, denies hallucinations, paranoid, aaox3, limited insight, judgement and impulse control DIAGNOSES: 1. Schizoaffective disorder, bipolar type versus bipolar disorder with psychosis. MANAGEMENT PLAN: Stop Trazodone, CHange from Depakote to Depakote ER TIME SPENT:. 15 minutes. Vital Signs Vital Signs Date Time Temp Pulse Resp B/P (MAP) Pulse Ox O2 Delivery O2 Flow Rate FiO2 11/10/16 06:18 98.6 68 18 121/51 (74) Room Air Current Medications Current Medications Acetaminophen (Tylenol Tab) 650 mg Q6HP PRN PO HEADACHE or DISCOMFORT Last administered on 11/09/16t 20:31; Start 10/29/16 at 00:15; Stop 11/28/16 at 00:14 Al Hydrox/Mg Hydrox/Simethicone (Mylanta) 30 ml Q4HP PRN PO HEARTBURN/ INDIGESTION Last administered on 11/08/16 18:52; Start 10/29/16 at 00:15; Stop 11/28/16 at 00:14 Aripiprazole (AbiLIFY) 5 mg DAILY PO Last administered on 11/10/16 09:44; Start 10/29/16 at 09:00; Stop 11/28/16 at 08:59 Divalproex Sodium (Depakote) 500 mg DAILY PO Last administered on 11/10/16 09: 43; Start 10/29/16 at 09:00; Stop 11/28/16 at 08:59 Divalproex Sodium (Depakote) 1,000 mg QHS PO Last administered on 11/09/16 20: 29; Start 11/03/16 at 21:00; Stop 12/03/16 at 20:59 Divalproex Sodium (Depakote) 1,500 mg QHS PO Last administered on 11/02/16 20: 03; Start 10/29/16 at 21:00; Stop 11/03/16 at 12:29; Status DC Doxycycline Hyclate (Vibramycin) 100 mg BID PO Last administered on 11/10/16 09:44; Start 11/04/16 at 09:00; Stop 11/14/16 at 08:59 Home Med (Med Rec Complete!) ASDIRECTED XX ; Start 10/28/16 at 19:45; Stop 03/05 at 00:35; Status DC Hydroxyzine HCl (Atarax) 10 mg Q8HP PRN PO ANXIETY Last administered on 20:29; Start 10/29/16 at 00:15; Stop 11/28/16 at 00:14 [place] Carbonate ([place] Carbonate) 150 mg BID PO Last administered on 09:44; Start 11/09/16 at 21:00; Stop 12/09/16 at 20:59 [place] Carbonate ([place] Carbonate) 600 mg BID PO Last administered on 08:56; Start 10/29/16 at 09:00; Stop 11/09/16 at 13:13; Status DC [place] Carbonate ([place] Carbonate) 600 mg BID PO Last administered on 09:44; Start 8/23/17 at 21:00; Stop 12/09/16 at 20:59 Magnesium Hydroxide (Milk Of Magnesia) 30 ml DAILYPRN PRN PO CONSTIPATION; Start 10/29/16 at 00:15; Stop 11/28/16 at 00:14 Naltrexone HCl (Revia) 50 mg QHS PO Last administered on 11/09/16 20:29; Start 10/29/16 at 21:00; Stop 11/28/16 at 20:59 Olanzapine (ZyPREXA) 30 mg QHS PO Last administered on 11/09/16 20:29; Start 10/29/16 at 21:00; Stop 11/28/16 at 20:59 Trazodone HCl (Desyrel) 50 mg QHSP PRN PO INSOMNIA Last administered on 20:24; Start 10/29/16 at 00:15; Stop 11/28/16 at 00:14 Allergies Coded Allergies: Penicillins (Verified Allergy, Unknown, 06/19/12) SABINO HINOJOSA MD Nov 10, 2016 14:53
[2016-11-10 18:00] VITALS: BP 123/62
[2016-11-10] MEDS: NALTREXONE 50 MG TAB PO SCH (21:28)
[2016-11-10] MEDS: DIVALPROEX 500MG *ER* TAB PO SCH (21:28)
[2016-11-10] MEDS: OLANZapine 10 MG TAB PO SCH (21:28)
[2016-11-10] MEDS: ACETAMINOPHEN TAB 650MG DOSE (2X325MG) PO PRN (21:28)
[2016-11-10] MEDS: hydrOXYzine 10 MG TAB PO PRN (21:29)
[2016-11-11 06:57] VITALS: BP 99/72
[2016-11-11] MEDS: DOXYCYCLINE HYCLATE 100 MG TAB PO SCH ×2 (09:13→21:14)
[2016-11-11] MEDS: LITHIUM CARBONATE 600 MG CAP PO SCH (09:14)
[2016-11-11] MEDS: LITHIUM CARBONATE 150 MG CAP PO SCH (09:14)
--- NOTE | 2016-11-11 15:51 | MHIPNPDOC ---
[facility] Progress Note Progress Note DATE OF SERVICE: 11/11/16 HISTORY: Patient was seen and evaluated for her progress in inpatient psychiatry unit. On evaluation, patient reported that she woke up early this morning and went to the [place] and also planning to go for group therapy today. She reported that she continues to feel sleepy and was sleeping for 12- 15 hours even when she was not on medications. She remains religiously preoccupied, but reported that she always likes to be anglican. She denies any suicidal or homicidal ideations and also denies psychotic symptoms including paranoid ideations and hallucinations, but she remains somewhat internally preoccupied, disheveled, and at times needs help from others in taking care of himself. She continues to be on an enhanced supervision of every 7 minutes. No incidences or issues were reported while stepping down from constant observation due to enhanced supervision. Medications are changed and arrange so that she can take most of the medications in the evening time as she likes to sleep late in the morning and misses some of the doses of the medication once he gets discharged from hospital. VITAL SIGNS: See below. CURRENT MEDICATIONS: See below. MENTAL STATUS EXAMINATION: 26yo female sitting in the chair, looks older than the stated age, poor hygiene and grooming, increased psychomotor activities, no abnormal movements, superficially cooperative with fair eye contact, speech is increased in rate, normal rhythm, amount and prosody, mood is irritable, affect full and mood congruent, thought process is tangential & circumstantial at times, denies suicidal and homicidal ideations, denies hallucinations, paranoid, aaox3, limited insight, judgement and impulse control DIAGNOSES: 1. Schizoaffective disorder, bipolar type versus bipolar disorder with psychosis. MANAGEMENT PLAN: Change lithium carbonate to lithium ER TIME SPENT:. 15 minutes. Vital Signs Vital Signs Date Time Temp Pulse Resp B/P (MAP) Pulse Ox O2 Delivery O2 Flow Rate FiO2 11/11/16 06:57 97.8 68 18 99/72 (81) Room Air Current Medications Current Medications Acetaminophen (Tylenol Tab) 650 mg Q6HP PRN PO HEADACHE or DISCOMFORT Last administered on 11/10/16t 21:28; Start 10/29/16 at 00:15; Stop 11/28/16 at 00:14 Al Hydrox/Mg Hydrox/Simethicone (Mylanta) 30 ml Q4HP PRN PO HEARTBURN/ INDIGESTION Last administered on 11/08/16 18:52; Start 10/29/16 at 00:15; Stop 11/28/16 at 00:14 Aripiprazole (AbiLIFY) 5 mg DAILY PO Last administered on 11/11/16 09:13; Start 10/29/16 at 09:00; Stop 11/28/16 at 08:59 Divalproex Sodium (Depakote Er) 1,500 mg QHS PO Last administered on 11/10/16 21:28; Start 11/10/16 at 21:00; Stop 12/10/16 at 20:59 Divalproex Sodium (Depakote) 500 mg DAILY PO Last administered on 11/10/16 09: 43; Start 10/29/16 at 09:00; Stop 11/10/16 at 16:32; Status DC Divalproex Sodium (Depakote) 1,000 mg QHS PO Last administered on 11/09/16 20: 29; Start 11/03/16 at 21:00; Stop 11/10/16 at 16:32; Status DC Divalproex Sodium (Depakote) 1,500 mg QHS PO Last administered on 11/02/16 20: 03; Start 10/29/16 at 21:00; Stop 11/03/16 at 12:29; Status DC Doxycycline Hyclate (Vibramycin) 100 mg BID PO Last administered on 11/11/16 09:13; Start 11/04/16 at 09:00; Stop 11/14/16 at 08:59 Home Med (Med Rec Complete!) ASDIRECTED XX ; Start 10/28/16 at 19:45; Stop 03/05 at 00:35; Status DC Hydroxyzine HCl (Atarax) 10 mg Q8HP PRN PO ANXIETY Last administered on 21:29; Start 10/29/16 at 00:15; Stop 11/28/16 at 00:14 [place] Carbonate (Eskalith-Cr) 1,350 mg QHS PO ; Start 11/11/16 at 21:00; Stop 12/11/16 at 20:59 [place] Carbonate ([place] Carbonate) 150 mg BID PO Last administered on 09:14; Start 11/09/16 at 21:00; Stop 11/11/16 at 13:54; Status DC [place] Carbonate ([place] Carbonate) 600 mg BID PO Last administered on 08:56; Start 10/29/16 at 09:00; Stop 11/09/16 at 13:13; Status DC [place] Carbonate ([place] Carbonate) 600 mg BID PO Last administered on 09:14; Start 11/09/16 at 21:00; Stop 11/11/16 at 13:54; Status DC Magnesium Hydroxide (Milk Of Magnesia) 30 ml DAILYPRN PRN PO CONSTIPATION; Start 10/29/16 at 00:15; Stop 11/28/16 at 00:14 Naltrexone HCl (Revia) 50 mg QHS PO Last administered on 11/10/16 21:28; Start 10/29/16 at 21:00; Stop 11/28/16 at 20:59 Olanzapine (ZyPREXA) 30 mg QHS PO Last administered on 11/10/16 21:28; Start 10/29/16 at 21:00; Stop 11/28/16 at 20:59 Trazodone HCl (Desyrel) 50 mg QHSP PRN PO INSOMNIA Last administered on 20:24; Start 10/29/16 at 00:15; Stop 11/10/16 at 16:32; Status DC Allergies Coded Allergies: Penicillins (Verified Allergy, Unknown, 06/19/12) SABINO HINOJOSA MD Nov 11, 2016 15:51
[2016-11-11 18:00] VITALS: BP 106/60
[2016-11-11] MEDS: LITHIUM CARBONATE 450 MG **CR** TAB PO SCH (21:15)
[2016-11-11] MEDS: DIVALPROEX 500MG *ER* TAB PO SCH (21:15)
[2016-11-11] MEDS: OLANZapine 10 MG TAB PO SCH (21:15)
[2016-11-11] MEDS: NALTREXONE 50 MG TAB PO SCH (21:18)
[2016-11-12 06:00] VITALS: BP 101/52
[2016-11-12] MEDS: DOXYCYCLINE HYCLATE 100 MG TAB PO SCH ×2 (08:25→20:51)
[2016-11-12] MEDS: ACETAMINOPHEN TAB 650MG DOSE (2X325MG) PO PRN (16:50)
[2016-11-12 18:00] VITALS: BP 122/57
[2016-11-12] MEDS: DIVALPROEX 500MG *ER* TAB PO SCH (20:51)
[2016-11-12] MEDS: NALTREXONE 50 MG TAB PO SCH (20:51)
[2016-11-12] MEDS: OLANZapine 10 MG TAB PO SCH (20:51)
[2016-11-12] MEDS: LITHIUM CARBONATE 450 MG **CR** TAB PO SCH (20:51)
[2016-11-13] MEDS: ACETAMINOPHEN TAB 650MG DOSE (2X325MG) PO PRN ×2 (06:23→20:23)
[2016-11-13 06:49] VITALS: BP 101/54
[2016-11-13] MEDS: DOXYCYCLINE HYCLATE 100 MG TAB PO SCH ×2 (09:00→20:22)
[2016-11-13 18:00] VITALS: BP 136/84
[2016-11-13] MEDS: hydrOXYzine 10 MG TAB PO PRN (20:21)
[2016-11-13] MEDS: NALTREXONE 50 MG TAB PO SCH (20:21)
[2016-11-13] MEDS: LITHIUM CARBONATE 450 MG **CR** TAB PO SCH (20:21)
[2016-11-13] MEDS: OLANZapine 10 MG TAB PO SCH (20:22)
[2016-11-13] MEDS: DIVALPROEX 500MG *ER* TAB PO SCH (20:22)
[2016-11-14 06:40] VITALS: BP 108/52
[2016-11-14] MEDS ORDERED: **PENDING PPD ENTRY XX SCH (09:00)
[2016-11-14] MEDS ORDERED: TUBERCULIN PPD 5 UNITS/0.1 ML ID ONE ×2 (12:00→13:00)
--- NOTE | 2016-11-14 15:51 | MHIPNPDOC ---
[facility] Progress Note Progress Note DATE OF SERVICE: 11/14/16 HISTORY: The patient was seen and evaluated for her progress in inpatient psychiatry unit. 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 She reported that she was having similar thoughts when she came to the hospital. But, at that time she was using marijuana and she is not sure if her marijuana was laced with something different. She reported that she has not been hearing voices. Apart from this episode and does not believe that she is in hell anymore, even when she was asking everyone in the unit if this is hell or on not, then got the answer as 'no'and had difficulty in believing that she is in hell. She continues to sleep more and misses most of the unit activities, especially in the morning. She wants to continue current treatment and currently denies any suicidal or homicidal ideations, intentions or plans. She currently denies any psychotic symptoms including hallucinations and paranoid ideations. Her hygiene and grooming are improving, but still remains dishevel at times and needs help from others in taking care of herself. Encouraged patient to participate in the unit activity and also take care of himself as much as possible. VITAL SIGNS: See below. CURRENT MEDICATIONS: See below. MENTAL STATUS EXAMINATION: 26yo female sitting in the chair, looks older than the stated age, poor hygiene and grooming, increased psychomotor activities, no abnormal movements, superficially cooperative with fair eye contact, speech is increased in rate, normal rhythm, amount and prosody, mood is 'fine', affect constricted and mood congruent, thought process is logical & goal directed, denies suicidal and homicidal ideations, denies hallucinations, paranoid, aaox3, limited insight, judgement and impulse control Assessment: Patient seemed to have fluctuating level of psychosis and at times feels confused because of psychosis, but continued to deny any suicidal or homicidal ideations, compliant with the current medications and denies side effects. If her psychosis does not improve, we will have to consider long-term inpatient psychiatry in the [facility]. Patient is aware but does not want to go there and would like to be with the family including her children. DIAGNOSES: 1. Schizoaffective disorder, bipolar type versus bipolar disorder with psychosis. MANAGEMENT PLAN: Change lithium carbonate to lithium ER TIME SPENT:. 15 minutes. Vital Signs Vital Signs Date Time Temp Pulse Resp B/P (MAP) Pulse Ox O2 Delivery O2 Flow Rate FiO2 11/14/16 06:40 99.0 73 18 108/52 (70) Room Air Current Medications Current Medications Acetaminophen (Tylenol Tab) 650 mg Q6HP PRN PO HEADACHE or DISCOMFORT Last administered on 11/13/16 20:23; Start 10/29/16 at 00:15; Stop 11/28/16 at 00:14 Al Hydrox/Mg Hydrox/Simethicone (Mylanta) 30 ml Q4HP PRN PO HEARTBURN/ INDIGESTION Last administered on 11/08/16 18:52; Start 10/29/16 at 00:15; Stop 11/28/16 at 00:14 Aripiprazole (AbiLIFY) 5 mg DAILY PO Last administered on 11/14/16 08:57; Start 10/29/16 at 09:00; Stop 11/28/16 at 08:59 Divalproex Sodium (Depakote Er) 1,500 mg QHS PO Last administered on 11/13/16 20:22; Start 11/10/16 at 21:00; Stop 12/10/16 at 20:59 Divalproex Sodium (Depakote) 500 mg DAILY PO Last administered on 11/10/16 09: 43; Start 10/29/16 at 09:00; Stop 11/10/16 at 16:32; Status DC Divalproex Sodium (Depakote) 1,000 mg QHS PO Last administered on 11/09/16 20: 29; Start 11/03/16 at 21:00; Stop 11/10/16 at 16:32; Status DC Divalproex Sodium (Depakote) 1,500 mg QHS PO Last administered on 11/02/16 20: 03; Start 10/29/16 at 21:00; Stop 11/03/16 at 12:29; Status DC Doxycycline Hyclate (Vibramycin) 100 mg BID PO Last administered on 11/13/16 20:22; Start 11/04/16 at 09:00; Stop 11/14/16 at 08:59; Status DC Home Med (Med Rec Complete!) ASDIRECTED XX ; Start 10/28/16 at 19:45; Stop 03/05 at 00:35; Status DC Hydroxyzine HCl (Atarax) 10 mg Q8HP PRN PO ANXIETY Last administered on 20:21; Start 10/29/16 at 00:15; Stop 11/28/16 at 00:14 [place] Carbonate (Eskalith-Cr) 1,350 mg QHS PO Last administered on 11/13/16 20:21; Start 11/11/16 at 21:00; Stop 12/11/16 at 20:59 [place] Carbonate ([place] Carbonate) 150 mg BID PO Last administered on 09:14; Start 11/09/16 at 21:00; Stop 11/11/16 at 13:54; Status DC [place] Carbonate ([place] Carbonate) 600 mg BID PO Last administered on 08:56; Start 10/29/16 at 09:00; Stop 11/09/16 at 13:13; Status DC [place] Carbonate ([place] Carbonate) 600 mg BID PO Last administered on 09:14; Start 11/09/16 at 21:00; Stop 11/11/16 at 13:54; Status DC Magnesium Hydroxide (Milk Of Magnesia) 30 ml DAILYPRN PRN PO CONSTIPATION; Start 10/29/16 at 00:15; Stop 11/28/16 at 00:14 Naltrexone HCl (Revia) 50 mg QHS PO Last administered on 11/13/16 20:21; Start 10/29/16 at 21:00; Stop 11/28/16 at 20:59 Non-Formulary Medication ( See Comment Field Below ) SEE COMMENTS SECTION 1T @10 XX ; Start 11/16/16 at 10:00; Stop 11/17/16 at 09:59; Status UNV Non-Formulary Medication ( See Comment Field Below ) SEE LABEL COMMENTS DAILY XX ; Start 11/14/16 at 09:00; Stop 11/14/16 at 12:26; Status DC Olanzapine (ZyPREXA) 30 mg QHS PO Last administered on 11/13/16 20:22; Start 10/29/16 at 21:00; Stop 11/28/16 at 20:59 Trazodone HCl (Desyrel) 50 mg QHSP PRN PO INSOMNIA Last administered on t 20:24; Start 10/29/16 at 00:15; Stop 11/10/16 at 16:32; Status DC Allergies Coded Allergies: Penicillins (Verified Allergy, Unknown, 06/19/12) SABINO HINOJOSA MD Nov 14, 2016 15:51
[2016-11-14 18:00] VITALS: BP 127/63
[2016-11-14] MEDS: LITHIUM CARBONATE 450 MG **CR** TAB PO SCH (20:25)
[2016-11-14] MEDS: NALTREXONE 50 MG TAB PO SCH (20:26)
[2016-11-14] MEDS: OLANZapine 10 MG TAB PO SCH (20:26)
[2016-11-14] MEDS: ACETAMINOPHEN TAB 650MG DOSE (2X325MG) PO PRN (20:27)
[2016-11-14] MEDS: DIVALPROEX 500MG *ER* TAB PO SCH (20:27)
[2016-11-15 07:09] VITALS: BP 115/61
[2016-11-15 07:47] LABS: ALBUMIN 3.4 GM/DL (3.2-5.2); ALBUMIN/GLOBULIN RATIO 0.89 (1.00-1.93); ALKALINE PHOSPHATASE 39 U/L (45-117); ALT/SGPT 21 U/L (12-78); ANION GAP 8 MEQ/L (8-16); AST/SGOT 10 U/L (15-37); BILIRUBIN,DIRECT < 0.1 MG/DL (0.0-0.2); BILIRUBIN,TOTAL 0.3 MG/DL (0.2-1.0); BLOOD UREA NITROGEN 5 MG/DL (7-18); CALCIUM LEVEL 9.4 MG/DL (8.5-10.1); CARBON DIOXIDE LEVEL 26 MEQ/L (21-32); CHLORIDE LEVEL 109 MEQ/L (98-107); GLOMERULAR FILTRATION RATE > 60.0 (>60); GLUCOSE, FASTING 88 MG/DL (70-105); POTASSIUM SERUM 4.4 MEQ/L (3.5-5.1); SODIUM LEVEL 143 MEQ/L (136-145); TOTAL PROTEIN 7.2 GM/DL (6.4-8.2)
[2016-11-15 07:50] LABS: LITHIUM LEVEL 1.17 MEQ/L (0.60-1.20)
--- NOTE | 2016-11-15 08:50 | IPNPDOC ---
Date Seen The patient was seen on 11/15/16. Progress Note HISTORY OF PRESENT ILLNESS: [facility]. Patient states left foot pain began 3-4 days ago. She complains of pain in the left lateral foot. There is no prior history of fall. No prior recollection of injury. No pain previously. Pain only occurs when walking. There is no pain to touch. No erythema. No edema. No warmth. Pt states irritated area Left groin is resolved. Pt states it comes and goes and sometimes drains liquid on its own. PAST MEDICAL HISTORY: Schizophrenia Bipolar. Manic with psychotic symptoms, severe. PAST SURGICAL HISTORY: denies PHYSICAL EXAMINATION: 26-year-old female flat affect. Avoids eye contact. Pupils equal and reactive to light. Pharynx, tongue, and gums pink and moist. Tongue is midline. Chest, clear to auscultation. Heart is regular. Abdomen benign. Bowel sounds positive. The patient is moving all extremities spontaneously well. There seems to be pain with bearing weight on the left foot however there is no pain with palpation. No obvious deformity. No erythema, or edema. There is no calf pain or cording noted. No warmth noted. Skin is warm and dry. IMPRESSION AND PLAN: 1. Bipolar disorder. Mgmt as per Psychiatry. 2. Hydradenitis suppurativa. Completed Doxycycline 100mg po BID 12/27. Monitor. 3. Left foot pain. Check x-ray of left foot. Check ultrasound of left lower extremity. 4. Staff member Shakira BRAMBILA present throughout exam. VS, I&O, 24H, Fishbone Vital Signs/I&O Vital Signs Date Time Temp Pulse Resp B/P (MAP) Pulse Ox O2 Delivery O2 Flow Rate FiO2 11/15/16 07:09 98.0 93 16 115/61 (79) Room Air Laboratory Data 24H LABS Laboratory Tests 2 11/15/16 07:04: Anion Gap 8, Glomerular Filtration Rate > 60.0, Calcium Level 9.4, Aspartate Amino Transf (AST/SGOT) 10L, Alanine Aminotransferase (ALT/SGPT) 21, Alkaline Phosphatase 39L, Total Bilirubin 0.3, Direct Bilirubin < 0.1, Total Protein 7.2 , Albumin 3.4, Albumin/Globulin Ratio 0.89L, Valproic Acid (Depakene) Level 69.7 , [place] Level 1.17 CBC/BMP Laboratory Tests 11/15/16 07:04 Kathie Dumont Nov 15, 2016 08:50
--- NOTE | 2016-11-15 10:16 | REP ---
LEFT FOOT, FOUR VIEWS: HISTORY: Pain. There is no acute fracture or dislocation. The joint spaces are normal in appearance. IMPRESSION: There is no acute fracture or dislocation. Signed by Sharath Khalil MD 11/15/2016 10:27 A
--- NOTE | 2016-11-15 10:20 | REP ---
Left lower extremity Duplex Doppler venous ultrasound: Real time compression and duplex Doppler interrogation of the left lower extremity deep venous system is performed. The left common femoral, superficial femoral and popliteal veins are fully compressible with transducer pressure and demonstrate normal spontaneous and phasic flow, without evidence of deep venous thrombosis. Impression: No evidence of deep venous thrombosis of the left lower extremity femoral popliteal venous system. Signed by Markus Green MD 11/15/2016 10:12 A
[2016-11-15] MEDS: hydrOXYzine 10 MG TAB PO PRN ×2 (14:29→23:52)
--- NOTE | 2016-11-15 15:40 | MHIPNPDOC ---
[facility] Progress Note Progress Note DATE OF SERVICE: 11/15/16 HISTORY: Patient was seen and evaluated on evaluation, patient reported that she had another episode of feeling that she had and she is in hell. In such episodes. She continues to hear voices and starts asking other people in the unit if this is hell. She reported that she feels confused during this time and when others tell her that she is not in hell, She likes to believe that. She reported that she is continuing to try to improve her hygiene and grooming, and also tried to be part of the unit activities but with such episodes, She has tough time to understand what is real. She continues to deny any suicidal or homicidal ideations even with such episodes. Patient's labs came back with therapeutic level of Depakote and lithium though Depakote level has decreased and lithium level has increased compared to the last result, we will repeat levels again for tomorrow to have clearer trough level. Patient reported that her son came to visit her yesterday and brought her some colored pictures, which helped her to think positive, but at the same time of visitation. She was feeling confused about being in hell again. Patient is eating fine and continued to sleep longer hours. VITAL SIGNS: See below. CURRENT MEDICATIONS: See below. MENTAL STATUS EXAMINATION: 26yo female sitting in the chair, looks older than the stated age, poor hygiene and grooming, normal psychomotor activities, no abnormal movements, superficially cooperative with fair eye contact, speech is soft, normal in rate , normal rhythm, amount and prosody, mood is confused', affect constricted and mood congruent, thought process is logical & goal directed but though times derailment present, denies suicidal and homicidal ideations, denies hallucinations, paranoid, aaox3, limited insight, judgement and impulse control Assessment: Patient seemed to have fluctuating level of psychosis and at times feels confused because of psychosis, but continued to deny any suicidal or homicidal ideations, compliant with the current medications and denies side effects. Will increase the Abilify PO to 10mg for now & will also repeat the [place] & Valproic acid levels. If her psychosis does not improve, we will have to consider long-term inpatient psychiatry in the [facility]. Patient is aware but does not want to go there and would like to be with the family including her children. DIAGNOSES: 1. Schizoaffective disorder, bipolar type versus bipolar disorder with psychosis. MANAGEMENT PLAN: Change lithium carbonate to lithium ER TIME SPENT:. 15 minutes. Vital Signs Vital Signs Date Time Temp Pulse Resp B/P (MAP) Pulse Ox O2 Delivery O2 Flow Rate FiO2 11/15/16 07:09 98.0 93 16 115/61 (79) Room Air Laboratory Data 24H Labs Laboratory Tests 2 11/15/16 07:04: Anion Gap 8, Glomerular Filtration Rate > 60.0, Calcium Level 9.4, Aspartate Amino Transf (AST/SGOT) 10L, Alanine Aminotransferase (ALT/SGPT) 21, Alkaline Phosphatase 39L, Total Bilirubin 0.3, Direct Bilirubin < 0.1, Total Protein 7.2 , Albumin 3.4, Albumin/Globulin Ratio 0.89L, Valproic Acid (Depakene) Level 69.7 , [place] Level 1.17 CBC/BMP Laboratory Tests 11/15/16 07:04 Current Medications Current Medications Acetaminophen (Tylenol Tab) 650 mg Q6HP PRN PO HEADACHE or DISCOMFORT Last administered on 11/14/16 20:27; Start 10/29/16 at 00:15; Stop 11/28/16 at 00:14 Al Hydrox/Mg Hydrox/Simethicone (Mylanta) 30 ml Q4HP PRN PO HEARTBURN/ INDIGESTION Last administered on 11/08/16 18:52; Start 10/29/16 at 00:15; Stop 11/28/16 at 00:14 Aripiprazole (AbiLIFY) 5 mg DAILY PO Last administered on 11/15/16 09:11; Start 10/29/16 at 09:00; Stop 11/28/16 at 08:59 Divalproex Sodium (Depakote Er) 1,500 mg QHS PO Last administered on 11/14/16 20:27; Start 11/10/16 at 21:00; Stop 12/10/16 at 20:59 Divalproex Sodium (Depakote) 500 mg DAILY PO Last administered on 11/10/16 09: 43; Start 10/29/16 at 09:00; Stop 11/10/16 at 16:32; Status DC Divalproex Sodium (Depakote) 1,000 mg QHS PO Last administered on 11/09/16 20: 29; Start 11/03/16 at 21:00; Stop 11/10/16 at 16:32; Status DC Divalproex Sodium (Depakote) 1,500 mg QHS PO Last administered on 11/02/16 20: 03; Start 10/29/16 at 21:00; Stop 11/03/16 at 12:29; Status DC Doxycycline Hyclate (Vibramycin) 100 mg BID PO Last administered on 11/13/16 20:22; Start 11/04/16 at 09:00; Stop 11/14/16 at 08:59; Status DC Home Med (Med Rec Complete!) ASDIRECTED XX ; Start 10/28/16 at 19:45; Stop 03/05 at 00:35; Status DC Hydroxyzine HCl (Atarax) 10 mg Q8HP PRN PO ANXIETY Last administered on 14:29; Start 10/29/16 at 00:15; Stop 11/28/16 at 00:14 [place] Carbonate (Eskalith-Cr) 1,350 mg QHS PO Last administered on 11/14/16 20:25; Start 11/11/16 at 21:00; Stop 12/11/16 at 20:59 [place] Carbonate ([place] Carbonate) 150 mg BID PO Last administered on 09:14; Start 11/09/16 at 21:00; Stop 11/11/16 at 13:54; Status DC [place] Carbonate ([place] Carbonate) 600 mg BID PO Last administered on 08:56; Start 10/29/16 at 09:00; Stop 11/09/16 at 13:13; Status DC [place] Carbonate ([place] Carbonate) 600 mg BID PO Last administered on 09:14; Start 11/09/16 at 21:00; Stop 11/11/16 at 13:54; Status DC Magnesium Hydroxide (Milk Of Magnesia) 30 ml DAILYPRN PRN PO CONSTIPATION; Start 10/29/16 at 00:15; Stop 11/28/16 at 00:14 Naltrexone HCl (Revia) 50 mg QHS PO Last administered on 11/14/16 20:26; Start 10/29/16 at 21:00; Stop 11/28/16 at 20:59 Non-Formulary Medication ( See Comment Field Below ) SEE COMMENTS SECTION 1T @10 XX ; Start 11/16/16 at 10:00; Stop 11/17/16 at 09:59; Status UNV Non-Formulary Medication ( See Comment Field Below ) SEE LABEL COMMENTS DAILY XX ; Start 11/14/16 at 09:00; Stop 11/14/16 at 12:26; Status DC Olanzapine (ZyPREXA) 30 mg QHS PO Last administered on 11/14/16 20:26; Start 10/29/16 at 21:00; Stop 11/28/16 at 20:59 Trazodone HCl (Desyrel) 50 mg QHSP PRN PO INSOMNIA Last administered on 20:24; Start 10/29/16 at 00:15; Stop 11/10/16 at 16:32; Status DC Allergies Coded Allergies: Penicillins (Verified Allergy, Unknown, 06/19/12) SABINO HINOJOSA MD Nov 15, 2016 15:40
[2016-11-15] MEDS: ACETAMINOPHEN TAB 650MG DOSE (2X325MG) PO PRN ×2 (16:49→23:52)
[2016-11-15 18:24] VITALS: BP 127/69
[2016-11-15] MEDS: DIVALPROEX 500MG *ER* TAB PO SCH (21:27)
[2016-11-15] MEDS: OLANZapine 10 MG TAB PO SCH (21:27)
[2016-11-15] MEDS: LITHIUM CARBONATE 450 MG **CR** TAB PO SCH (21:27)
[2016-11-15] MEDS: NALTREXONE 50 MG TAB PO SCH (21:27)
[2016-11-16 06:57] VITALS: BP 129/74
[2016-11-16 07:35] LABS: LITHIUM LEVEL 1.81 MEQ/L (0.60-1.20)
[2016-11-16] MEDS: ARIPiprazole 10 MG TAB PO SCH (09:58)
[2016-11-16] MEDS ORDERED: PPD DOCUMENTATION ENTRY MISC XX SCH (10:00)
[2016-11-16] MEDS ORDERED: PPD DOCUMENTATION ENTRY MISC XX ONE (13:00)
[2016-11-16 15:28] LABS: ANION GAP 6 MEQ/L (8-16); BLOOD UREA NITROGEN 7 MG/DL (7-18); CALCIUM LEVEL 9.2 MG/DL (8.5-10.1); CARBON DIOXIDE LEVEL 28 MEQ/L (21-32); CHLORIDE LEVEL 108 MEQ/L (98-107); CREATININE FOR GFR 0.85 MG/DL (0.55-1.02); GLOMERULAR FILTRATION RATE > 60.0 (>60); GLUCOSE, FASTING 109 MG/DL (70-105); POTASSIUM SERUM 4.3 MEQ/L (3.5-5.1); SODIUM LEVEL 142 MEQ/L (136-145)
[2016-11-16 15:30] LABS: LITHIUM LEVEL 1.09 MEQ/L (0.60-1.20)
--- NOTE | 2016-11-16 16:07 | MHIPNPDOC ---
[facility] Progress Note Progress Note DATE OF SERVICE: 11/16/16 HISTORY: Patient was seen and evaluated. She reported that she continues to have the thoughts being and being in hell, and most of these episodes also make her hear voices, which tried to further consolidate her thinking of being in hell and that is why she asked everyone around her. If she is on earth or in hell. She reported that this episodes last for a few hours and goes away by itself, as she is able to see the difference when she is having that episode versus not having those episodes. she is not able to identify any particular reason, which is making her feel that way. But reported that she feels that she has committed sin off using marijuana and blasphemy which she believes is not forgiven by God. She continues to deny any suicidal or homicidal ideations. She reported that she is trying her best to get out of the bed and walk around and interact with others in the unit but while having that episode, She would rather be alone. Her hygiene and grooming. He maintains poor and she needs repeated encouragement to get her ADLs done. VITAL SIGNS: See below. CURRENT MEDICATIONS: See below. MENTAL STATUS EXAMINATION: 26yo female sitting in the chair, looks older than the stated age, poor hygiene and grooming, normal psychomotor activities, no abnormal movements, superficially cooperative with fair eye contact, speech is soft, normal in rate , normal rhythm, amount and prosody, mood is confused', affect constricted and mood congruent, thought process is logical & goal directed but though times derailment present, denies suicidal and homicidal ideations, denies hallucinations, paranoid, aaox3, limited insight, judgement and impulse control Assessment: Patient seemed to have fluctuating level of psychosis and at times feels confused because of psychosis, but continued to deny any suicidal or homicidal ideations, compliant with the current medications and denies side effects. Will increase Depakote to 1750 milligrams a day. If her psychosis does not improve, we will have to consider long-term inpatient psychiatry in the [facility]. DIAGNOSES: 1. Schizoaffective disorder, bipolar type versus bipolar disorder with psychosis. MANAGEMENT PLAN: Change lithium carbonate to lithium ER TIME SPENT:. 15 minutes. Vital Signs Vital Signs Date Time Temp Pulse Resp B/P (MAP) Pulse Ox O2 Delivery O2 Flow Rate FiO2 11/16/16 06:57 96.6 71 20 129/74 (92) Room Air Laboratory Data 24H Labs Laboratory Tests 2 11/16/16 06:29: Valproic Acid (Depakene) Level 74.4, [place] Level 1.81H 11/16/16 14:36: [place] Level 1.09, Anion Gap 6L, Glomerular Filtration Rate > 60.0, Blood Urea Nitrogen 7, Creatinine 0.85, Sodium Level 142, Potassium Level 4.3, Chloride Level 108H, Carbon Dioxide Level 28, Calcium Level 9.2 CBC/BMP Laboratory Tests 11/16/16 14:36 Calcium Level 9.2 Current Medications Current Medications Acetaminophen (Tylenol Tab) 650 mg Q6HP PRN PO HEADACHE or DISCOMFORT Last administered on 11/15/16 23:52; Start 10/29/16 at 00:15; Stop 11/28/16 at 00:14 Al Hydrox/Mg Hydrox/Simethicone (Mylanta) 30 ml Q4HP PRN PO HEARTBURN/ INDIGESTION Last administered on 11/08/16 18:52; Start 10/29/16 at 00:15; Stop 11/28/16 at 00:14 Aripiprazole (AbiLIFY) 5 mg DAILY PO Last administered on 11/15/16 09:11; Start 10/29/16 at 09:00; Stop 11/15/16 at 15:21; Status DC Aripiprazole (AbiLIFY) 10 mg DAILY PO Last administered on 11/16/16 09:58; Start 11/16/16 at 09:00; Stop 12/16/16 at 08:59 Divalproex Sodium (Depakote Er) 250 mg QHS PO ; Start 11/16/16 at 21:00; Stop at 20:59; Status UNV Divalproex Sodium (Depakote Er) 1,500 mg QHS PO Last administered on 11/15/16 21:27; Start 11/10/16 at 21:00; Stop 12/10/16 at 20:59 Divalproex Sodium (Depakote) 500 mg DAILY PO Last administered on 11/10/16 09: 43; Start 10/29/16 at 09:00; Stop 11/10/16 at 16:32; Status DC Divalproex Sodium (Depakote) 1,000 mg QHS PO Last administered on 11/09/16 20: 29; Start 11/03/16 at 21:00; Stop 11/10/16 at 16:32; Status DC Divalproex Sodium (Depakote) 1,500 mg QHS PO Last administered on 11/02/16 20: 03; Start 10/29/16 at 21:00; Stop 11/03/16 at 12:29; Status DC Doxycycline Hyclate (Vibramycin) 100 mg BID PO Last administered on 11/13/16 20:22; Start 11/04/16 at 09:00; Stop 11/14/16 at 08:59; Status DC Home Med (Med Rec Complete!) ASDIRECTED XX ; Start 10/28/16 at 19:45; Stop 03/05 at 00:35; Status DC Hydroxyzine HCl (Atarax) 10 mg Q8HP PRN PO ANXIETY Last administered on 23:52; Start 10/29/16 at 00:15; Stop 11/28/16 at 00:14 [place] Carbonate (Eskalith-Cr) 1,350 mg QHS PO Last administered on 11/15/16 21:27; Start 11/11/16 at 21:00; Stop 12/11/16 at 20:59 [place] Carbonate ([place] Carbonate) 150 mg BID PO Last administered on 09:14; Start 11/09/16 at 21:00; Stop 11/11/16 at 13:54; Status DC [place] Carbonate ([place] Carbonate) 600 mg BID PO Last administered on 08:56; Start 10/29/16 at 09:00; Stop 11/09/16 at 13:13; Status DC [place] Carbonate ([place] Carbonate) 600 mg BID PO Last administered on 09:14; Start 11/09/16 at 21:00; Stop 11/11/16 at 13:54; Status DC Magnesium Hydroxide (Milk Of Magnesia) 30 ml DAILYPRN PRN PO CONSTIPATION; Start 10/29/16 at 00:15; Stop 11/28/16 at 00:14 Naltrexone HCl (Revia) 50 mg QHS PO Last administered on 11/15/16 21:27; Start 10/29/16 at 21:00; Stop 11/28/16 at 20:59 Non-Formulary Medication ( See Comment Field Below ) SEE COMMENTS SECTION 1T @10 XX ; Start 11/16/16 at 10:00; Stop 11/17/16 at 09:59; Status UNV Non-Formulary Medication ( See Comment Field Below ) SEE LABEL COMMENTS DAILY XX ; Start 11/14/16 at 09:00; Stop 11/14/16 at 12:26; Status DC Olanzapine (ZyPREXA) 30 mg QHS PO Last administered on 11/15/16t 21:27; Start 10/29/16 at 21:00; Stop 11/28/16 at 20:59 Trazodone HCl (Desyrel) 50 mg QHSP PRN PO INSOMNIA Last administered on 20:24; Start 10/29/16 at 00:15; Stop 11/10/16 at 16:32; Status DC Allergies Coded Allergies: Penicillins (Verified Allergy, Unknown, 06/19/12) SABINO HINOJOSA MD Nov 16, 2016 16:07
[2016-11-16 18:00] VITALS: BP 140/74
[2016-11-16] MEDS: ACETAMINOPHEN TAB 650MG DOSE (2X325MG) PO PRN (20:34)
[2016-11-16] MEDS: hydrOXYzine 10 MG TAB PO PRN (20:34)
[2016-11-16] MEDS: NALTREXONE 50 MG TAB PO SCH (20:34)
[2016-11-16] MEDS: LITHIUM CARBONATE 450 MG **CR** TAB PO SCH (20:35)
[2016-11-16] MEDS: DIVALPROEX 500MG *ER* TAB PO SCH (20:35)
[2016-11-16] MEDS: OLANZapine 10 MG TAB PO SCH (20:35)
[2016-11-16] MEDS: DIVALPROEX 250MG *ER* TAB PO SCH (20:35)
[2016-11-17 06:47] VITALS: BP 118/58
[2016-11-17] MEDS: ARIPiprazole 10 MG TAB PO SCH (08:44)
[2016-11-17] MEDS: ACETAMINOPHEN TAB 650MG DOSE (2X325MG) PO PRN ×2 (08:44→21:46)
--- NOTE | 2016-11-17 14:54 | MHIPNPDOC ---
[facility] Progress Note Progress Note DATE OF SERVICE: 11/17/16 HISTORY: Patient was seen and evaluated. She reported that yesterday also She had feeling that she is in hell. She reported talking to her music minister, and first lady about this, and they told her that the God is always with her no matter where sees, which she believes in and feels that even when she is in 'hell' The God is still with her. Patient reported that most of the time when she thinks about committing sin of using marijuana in the past, [place], in time that she starts feeling that she is in hell and starts hearing voices criticizing her. She reported that she has asked for forgiveness in the past about using the marijuana, but still not able to stop herself from thinking about the consequences from that. She thinks that she does not want to go back to using marijuana again, but does want to get better so that she can take care of herself as well as her kids. She currently denies any suicidal or homicidal ideations, and she also denies auditory or visual hallucinations, but continued to feel confused about being in hell every day. Eating and sleeping fine. VITAL SIGNS: See below. CURRENT MEDICATIONS: See below. MENTAL STATUS EXAMINATION: 26yo female sitting in the chair, looks older than the stated age, poor hygiene and grooming, normal psychomotor activities, no abnormal movements, superficially cooperative with fair eye contact, speech is soft, normal in rate , normal rhythm, amount and prosody, mood is confused', affect constricted and mood congruent, thought process is logical & goal directed but though times derailment present, denies suicidal and homicidal ideations, denies hallucinations, paranoid, aaox3, limited insight, judgement and impulse control Assessment: Patient seemed to have fluctuating level of psychosis and at times feels confused because of psychosis, but continued to deny any suicidal or homicidal ideations, compliant with the current medications and denies side effects. If her psychosis does not improve, we will have to consider long-term inpatient psychiatry in the [facility]. DIAGNOSES: 1. Schizoaffective disorder, bipolar type versus bipolar disorder with psychosis. MANAGEMENT PLAN: COntinue current treatment, will repeat Valproic acid & [place] level soon, last level therapeutic. TIME SPENT:. 15 minutes. Vital Signs Vital Signs Date Time Temp Pulse Resp B/P (MAP) Pulse Ox O2 Delivery O2 Flow Rate FiO2 11/17/16 06:47 98.3 80 14 118/58 (78) 11/16/16 06:57 Room Air Laboratory Data 24H Labs Laboratory Tests 2 11/16/16 14:36: Anion Gap 6L, Glomerular Filtration Rate > 60.0, Blood Urea Nitrogen 7, Creatinine 0.85, Sodium Level 142, Potassium Level 4.3, Chloride Level 108H, Carbon Dioxide Level 28, Calcium Level 9.2, [place] Level 1.09 CBC/BMP Laboratory Tests 11/16/16 14:36 Calcium Level 9.2 Current Medications Current Medications Acetaminophen (Tylenol Tab) 650 mg Q6HP PRN PO HEADACHE or DISCOMFORT Last administered on 11/17/16 08:44; Start 10/29/16 at 00:15; Stop 11/28/16 at 00:14 Al Hydrox/Mg Hydrox/Simethicone (Mylanta) 30 ml Q4HP PRN PO HEARTBURN/ INDIGESTION Last administered on 11/08/16 18:52; Start 10/29/16 at 00:15; Stop 11/28/16 at 00:14 Aripiprazole (AbiLIFY) 5 mg DAILY PO Last administered on 11/15/16 09:11; Start 10/29/16 at 09:00; Stop 11/15/16 at 15:21; Status DC Aripiprazole (AbiLIFY) 10 mg DAILY PO Last administered on 11/17/16 08:44; Start 11/16/16 at 09:00; Stop 12/16/16 at 08:59 Divalproex Sodium (Depakote Er) 250 mg QHS PO Last administered on 11/16/16 20 :35; Start 11/16/16 at 21:00; Stop 12/16/16 at 20:59 Divalproex Sodium (Depakote Er) 1,500 mg QHS PO Last administered on 11/16/16 20:35; Start 11/10/16 at 21:00; Stop 12/10/16 at 20:59 Divalproex Sodium (Depakote) 500 mg DAILY PO Last administered on 11/10/16 09: 43; Start 10/29/16 at 09:00; Stop 11/10/16 at 16:32; Status DC Divalproex Sodium (Depakote) 1,000 mg QHS PO Last administered on 11/09/16 20: 29; Start 11/03/16 at 21:00; Stop 11/10/16 at 16:32; Status DC Divalproex Sodium (Depakote) 1,500 mg QHS PO Last administered on 11/02/16 20: 03; Start 10/29/16 at 21:00; Stop 11/03/16 at 12:29; Status DC Doxycycline Hyclate (Vibramycin) 100 mg BID PO Last administered on 11/13/16 20:22; Start 11/04/16 at 09:00; Stop 11/14/16 at 08:59; Status DC Home Med (Med Rec Complete!) ASDIRECTED XX ; Start 10/28/16 at 19:45; Stop 03/05 at 00:35; Status DC Hydroxyzine HCl (Atarax) 10 mg Q8HP PRN PO ANXIETY Last administered on 20:34; Start 10/29/16 at 00:15; Stop 11/28/16 at 00:14 [place] Carbonate (Eskalith-Cr) 1,350 mg QHS PO Last administered on 11/16/16 20:35; Start 11/11/16 at 21:00; Stop 12/11/16 at 20:59 [place] Carbonate ([place] Carbonate) 150 mg BID PO Last administered on 09:14; Start 11/09/16 at 21:00; Stop 11/11/16 at 13:54; Status DC [place] Carbonate ([place] Carbonate) 600 mg BID PO Last administered on 08:56; Start 10/29/16 at 09:00; Stop 11/09/16 at 13:13; Status DC [place] Carbonate ([place] Carbonate) 600 mg BID PO Last administered on 09:14; Start 11/09/16 at 21:00; Stop 11/11/16 at 13:54; Status DC Magnesium Hydroxide (Milk Of Magnesia) 30 ml DAILYPRN PRN PO CONSTIPATION; Start 10/29/16 at 00:15; Stop 11/28/16 at 00:14 Naltrexone HCl (Revia) 50 mg QHS PO Last administered on 11/16/16 20:34; Start 10/29/16 at 21:00; Stop 11/28/16 at 20:59 Non-Formulary Medication ( See Comment Field Below ) SEE COMMENTS SECTION 1T @10 XX ; Start 11/16/16 at 10:00; Stop 11/17/16 at 09:59; Status UNV Non-Formulary Medication ( See Comment Field Below ) SEE LABEL COMMENTS DAILY XX ; Start 11/14/16 at 09:00; Stop 11/14/16 at 12:26; Status DC Olanzapine (ZyPREXA) 30 mg QHS PO Last administered on 11/16/16t 20:35; Start 10/29/16 at 21:00; Stop 11/28/16 at 20:59 Trazodone HCl (Desyrel) 50 mg QHSP PRN PO INSOMNIA Last administered on 20:24; Start 10/29/16 at 00:15; Stop 11/10/16 at 16:32; Status DC Allergies Coded Allergies: Penicillins (Verified Allergy, Unknown, 06/19/12) SABINO HINOJOSA MD Nov 17, 2016 14:54
[2016-11-17 18:00] VITALS: BP 111/70
[2016-11-17] MEDS: DIVALPROEX 500MG *ER* TAB PO SCH (21:46)
[2016-11-17] MEDS: hydrOXYzine 10 MG TAB PO PRN (21:46)
[2016-11-17] MEDS: NALTREXONE 50 MG TAB PO SCH (21:46)
[2016-11-17] MEDS: OLANZapine 10 MG TAB PO SCH (21:46)
[2016-11-17] MEDS: LITHIUM CARBONATE 450 MG **CR** TAB PO SCH (21:46)
[2016-11-17] MEDS: DIVALPROEX 250MG *ER* TAB PO SCH (21:47)
[2016-11-18 07:04] VITALS: BP 102/58
[2016-11-18] MEDS: ARIPiprazole 10 MG TAB PO SCH (07:57)
--- NOTE | 2016-11-18 17:44 | MHIPNPDOC ---
[facility] Progress Note Progress Note DATE OF SERVICE: 11/18/16 HISTORY: Patient was seen and evaluated. She reported that almost everyday She had feeling that she is in hell & hearing voices most of the times with that feeling. But feels that the goals. Episodes are getting less and less intense and stays with her for a shorter time since he came to know that he will if she is in hell, The God will be able to be with her. She also reported that she has been having multiple questions about understandings of Bible and was trying to ask everybody in the unit, but now she is willing to write down all the questions and present them to her data analysis manager when she talks to them. Patient wakes up early in the morning, but continued to take naps throughout the day and reported that she is keeping well at nighttime. Encouraged patient to participate more in the unit activities including group therapy and milieu treatment. She currently denies any suicidal or homicidal ideations, and she also denies auditory or visual hallucinations, but continued to feel confused about being in hell every day. Eating and sleeping fine. VITAL SIGNS: See below. CURRENT MEDICATIONS: See below. MENTAL STATUS EXAMINATION: 26yo female sitting in the chair, looks older than the stated age, poor hygiene and grooming, normal psychomotor activities, no abnormal movements, superficially cooperative with fair eye contact, speech is soft, normal in rate , normal rhythm, amount and prosody, mood is confused', affect constricted and mood congruent, thought process is logical & goal directed but religiously preoccupied, denies suicidal and homicidal ideations, denies hallucinations currently, paranoid, aaox3, limited insight, judgement and impulse control Assessment: Patient seemed to have fluctuating level of psychosis and at times feels confused because of psychosis, but continued to deny any suicidal or homicidal ideations, compliant with the current medications and denies side effects. If her psychosis does not improve, we will have to consider long-term inpatient psychiatry in the [facility]. DIAGNOSES: 1. Schizoaffective disorder, bipolar type versus bipolar disorder with psychosis. MANAGEMENT PLAN: Continue current treatment, will repeat Valproic acid & [place] level soon, last level therapeutic. TIME SPENT:. 15 minutes. Vital Signs Vital Signs Date Time Temp Pulse Resp B/P (MAP) Pulse Ox O2 Delivery O2 Flow Rate FiO2 11/18/16 07:04 99.1 75 16 102/58 (73) 11/16/16 06:57 Room Air Current Medications Current Medications Acetaminophen (Tylenol Tab) 650 mg Q6HP PRN PO HEADACHE or DISCOMFORT Last administered on 11/17/16 21:46; Start 10/29/16 at 00:15; Stop 11/28/16 at 00:14 Al Hydrox/Mg Hydrox/Simethicone (Mylanta) 30 ml Q4HP PRN PO HEARTBURN/ INDIGESTION Last administered on 11/08/16 18:52; Start 10/29/16 at 00:15; Stop 11/28/16 at 00:14 Aripiprazole (AbiLIFY) 5 mg DAILY PO Last administered on 11/15/16 09:11; Start 10/29/16 at 09:00; Stop 11/15/16 at 15:21; Status DC Aripiprazole (AbiLIFY) 10 mg DAILY PO Last administered on 11/18/16 07:57; Start 11/16/16 at 09:00; Stop 12/16/16 at 08:59 Divalproex Sodium (Depakote Er) 250 mg QHS PO Last administered on 11/17/16 21 :47; Start 11/16/16 at 21:00; Stop 12/16/16 at 20:59 Divalproex Sodium (Depakote Er) 1,500 mg QHS PO Last administered on 11/17/16 21:46; Start 11/10/16 at 21:00; Stop 12/10/16 at 20:59 Divalproex Sodium (Depakote) 500 mg DAILY PO Last administered on 11/10/16 09: 43; Start 10/29/16 at 09:00; Stop 11/10/16 at 16:32; Status DC Divalproex Sodium (Depakote) 1,000 mg QHS PO Last administered on 11/09/16 20: 29; Start 11/03/16 at 21:00; Stop 11/10/16 at 16:32; Status DC Divalproex Sodium (Depakote) 1,500 mg QHS PO Last administered on 11/02/16 20: 03; Start 10/29/16 at 21:00; Stop 11/03/16 at 12:29; Status DC Doxycycline Hyclate (Vibramycin) 100 mg BID PO Last administered on 11/13/16 20:22; Start 11/04/16 at 09:00; Stop 11/14/16 at 08:59; Status DC Home Med (Med Rec Complete!) ASDIRECTED XX ; Start 10/28/16 at 19:45; Stop 03/05 at 00:35; Status DC Hydroxyzine HCl (Atarax) 10 mg Q8HP PRN PO ANXIETY Last administered on 21:46; Start 10/29/16 at 00:15; Stop 11/28/16 at 00:14 [place] Carbonate (Eskalith-Cr) 1,350 mg QHS PO Last administered on 11/17/16 21:46; Start 11/11/16 at 21:00; Stop 12/11/16 at 20:59 [place] Carbonate ([place] Carbonate) 150 mg BID PO Last administered on 09:14; Start 11/09/16 at 21:00; Stop 11/11/16 at 13:54; Status DC [place] Carbonate ([place] Carbonate) 600 mg BID PO Last administered on 08:56; Start 10/29/16 at 09:00; Stop 11/09/16 at 13:13; Status DC [place] Carbonate ([place] Carbonate) 600 mg BID PO Last administered on 09:14; Start 11/09/16 at 21:00; Stop 11/11/16 at 13:54; Status DC Magnesium Hydroxide (Milk Of Magnesia) 30 ml DAILYPRN PRN PO CONSTIPATION; Start 10/29/16 at 00:15; Stop 11/28/16 at 00:14 Naltrexone HCl (Revia) 50 mg QHS PO Last administered on 11/17/16 21:46; Start 10/29/16 at 21:00; Stop 11/28/16 at 20:59 Non-Formulary Medication ( See Comment Field Below ) SEE COMMENTS SECTION 1T @10 XX ; Start 11/16/16 at 10:00; Stop 11/17/16 at 09:59; Status UNV Non-Formulary Medication ( See Comment Field Below ) SEE LABEL COMMENTS DAILY XX ; Start 11/14/16 at 09:00; Stop 11/14/16 at 12:26; Status DC Olanzapine (ZyPREXA) 30 mg QHS PO Last administered on 11/17/16 21:46; Start 10/29/16 at 21:00; Stop 11/28/16 at 20:59 Trazodone HCl (Desyrel) 50 mg QHSP PRN PO INSOMNIA Last administered on 20:24; Start 10/29/16 at 00:15; Stop 11/10/16 at 16:32; Status DC Allergies Coded Allergies: Penicillins (Verified Allergy, Unknown, 06/19/12) SABINO HINOJOSA MD Nov 18, 2016 17:44
[2016-11-18 18:00] VITALS: BP 124/61
[2016-11-18] MEDS: DIVALPROEX 500MG *ER* TAB PO SCH (20:41)
[2016-11-18] MEDS: NALTREXONE 50 MG TAB PO SCH (20:41)
[2016-11-18] MEDS: hydrOXYzine 10 MG TAB PO PRN (20:41)
[2016-11-18] MEDS: OLANZapine 10 MG TAB PO SCH (20:41)
[2016-11-18] MEDS: DIVALPROEX 250MG *ER* TAB PO SCH (20:41)
[2016-11-18] MEDS: LITHIUM CARBONATE 450 MG **CR** TAB PO SCH (20:42)
[2016-11-18] MEDS: ACETAMINOPHEN TAB 650MG DOSE (2X325MG) PO PRN (20:42)
[2016-11-19 07:13] VITALS: BP 130/84
[2016-11-19] MEDS: ARIPiprazole 10 MG TAB PO SCH (09:20)
[2016-11-19 18:00] VITALS: BP 115/62
[2016-11-19] MEDS: hydrOXYzine 10 MG TAB PO PRN (21:41)
[2016-11-19] MEDS: DIVALPROEX 500MG *ER* TAB PO SCH (21:41)
[2016-11-19] MEDS: NALTREXONE 50 MG TAB PO SCH (21:41)
[2016-11-19] MEDS: OLANZapine 10 MG TAB PO SCH (21:41)
[2016-11-19] MEDS: DIVALPROEX 250MG *ER* TAB PO SCH (21:41)
[2016-11-19] MEDS: LITHIUM CARBONATE 450 MG **CR** TAB PO SCH (21:42)
[2016-11-19] MEDS: ACETAMINOPHEN TAB 650MG DOSE (2X325MG) PO PRN (21:43)
[2016-11-20 06:37] VITALS: BP 104/62
[2016-11-20] MEDS: ARIPiprazole 10 MG TAB PO SCH (09:18)
[2016-11-20 18:00] VITALS: BP 141/77
[2016-11-20] MEDS: DIVALPROEX 250MG *ER* TAB PO SCH (21:52)
[2016-11-20] MEDS: NALTREXONE 50 MG TAB PO SCH (21:52)
[2016-11-20] MEDS: DIVALPROEX 500MG *ER* TAB PO SCH (21:53)
[2016-11-20] MEDS: LITHIUM CARBONATE 450 MG **CR** TAB PO SCH (21:53)
[2016-11-20] MEDS: OLANZapine 10 MG TAB PO SCH (21:53)
[2016-11-20] MEDS: ACETAMINOPHEN TAB 650MG DOSE (2X325MG) PO PRN (21:56)
[2016-11-20] MEDS: CEPACOL LOZENGE PO PRN (23:30)
[2016-11-21 06:00] VITALS: BP 119/65
[2016-11-21] MEDS: ARIPiprazole 10 MG TAB PO SCH (09:00)
[2016-11-21] MEDS: CEPACOL LOZENGE PO PRN (18:31)
[2016-11-21 19:56] VITALS: BP 132/65
[2016-11-21] MEDS: DIVALPROEX 500MG *ER* TAB PO SCH (20:14)
[2016-11-21] MEDS: LITHIUM CARBONATE 450 MG **CR** TAB PO SCH (20:14)
[2016-11-21] MEDS: NALTREXONE 50 MG TAB PO SCH (20:14)
[2016-11-21] MEDS: OLANZapine 10 MG TAB PO SCH (20:14)
[2016-11-21] MEDS: DIVALPROEX 250MG *ER* TAB PO SCH (20:14)
[2016-11-22] MEDS: ARIPiprazole 10 MG TAB PO SCH (08:45)
[2016-11-22] MEDS: MAALOX 30 ML SUSP *UDC PO PRN (09:30)
--- NOTE | 2016-11-22 16:55 | MHIPNPDOC ---
[facility] Progress Note Progress Note DATE OF SERVICE: 11/22/16 HISTORY: Patient was seen and evaluated. Patient continued to have psychotic symptoms including delusions of having AIDS and being , even after repeated explanations of the results of the labs, indicating otherwise. She reported that almost everyday She had feeling that she is in hell & hearing voices most of the times with that feeling. She continues to ask around everyone in the unit about Bible questions, about whether she and in hell and not, and needs repeated reassurance that she is okay. She seems to be improving in her hygiene and grooming and able to wake up every morning, take shower and eat breakfast, ADLs are improving, continued to take naps throughout the day. Encouraged patient to participate more in the unit activities including group therapy and milieu treatment. She currently denies any suicidal or homicidal ideations, and she also denies auditory or visual hallucinations, but continued to feel confused about being in hell every day. Eating and sleeping fine. VITAL SIGNS: See below. CURRENT MEDICATIONS: See below. MENTAL STATUS EXAMINATION: 26yo female sitting in the chair, looks older than the stated age, poor hygiene and grooming, normal psychomotor activities, no abnormal movements, superficially cooperative with fair eye contact, speech is soft, normal in rate , normal rhythm, amount and prosody, mood is confused', affect constricted and mood congruent, thought process is logical & goal directed but religiously preoccupied, denies suicidal and homicidal ideations, denies hallucinations currently, paranoid, aaox3, limited insight, judgement and impulse control Assessment: Patient seemed to have fluctuating level of psychosis and at times feels confused because of psychosis, but continued to deny any suicidal or homicidal ideations, compliant with the current medications and denies side effects. Consider long-term inpatient psychiatric treatment in [facility] DIAGNOSES: 1. Schizoaffective disorder, bipolar type versus bipolar disorder with psychosis. MANAGEMENT PLAN: Continue current treatment, will repeat Valproic acid & [place] level soon, last level therapeutic. TIME SPENT:. 15 minutes. Vital Signs Vital Signs Date Time Temp Pulse Resp B/P (MAP) Pulse Ox O2 Delivery O2 Flow Rate FiO2 11/21/16 19:56 98.4 107 18 132/65 (87) Room Air Current Medications Current Medications Acetaminophen (Tylenol Tab) 650 mg Q6HP PRN PO HEADACHE or DISCOMFORT Last administered on 11/20/16 21:56; Start 10/29/16 at 00:15; Stop 11/28/16 at 00:14 Al Hydrox/Mg Hydrox/Simethicone (Mylanta) 30 ml Q4HP PRN PO HEARTBURN/ INDIGESTION Last administered on 11/22/16 09:30; Start 10/29/16 at 00:15; Stop 11/28/16 at 00:14 Aripiprazole (AbiLIFY) 5 mg DAILY PO Last administered on 11/15/16 09:11; Start 10/29/16 at 09:00; Stop 11/15/16 at 15:21; Status DC Aripiprazole (AbiLIFY) 10 mg DAILY PO Last administered on 11/22/16 08:45; Start 11/16/16 at 09:00; Stop 12/16/16 at 08:59 Cetylpyridinium Chloride (Cepacol) 1 zeke Q2HP PRN PO SORE THROAT Last administered on 11/21/16 18:31; Start 11/20/16 at 22:30; Stop 12/20/16 at 22:29 Divalproex Sodium (Depakote Er) 250 mg QHS PO Last administered on 11/21/16 20: 14; Start 11/16/16 at 21:00; Stop 12/16/16 at 20:59 Divalproex Sodium (Depakote Er) 1,500 mg QHS PO Last administered on 11/21/16 20:14; Start 11/10/16 at 21:00; Stop 12/10/16 at 20:59 Divalproex Sodium (Depakote) 500 mg DAILY PO Last administered on 11/10/16 09: 43; Start 10/29/16 at 09:00; Stop 11/10/16 at 16:32; Status DC Divalproex Sodium (Depakote) 1,000 mg QHS PO Last administered on 11/09/16 20: 29; Start 11/03/16 at 21:00; Stop 11/10/16 at 16:32; Status DC Divalproex Sodium (Depakote) 1,500 mg QHS PO Last administered on 11/02/16 20: 03; Start 10/29/16 at 21:00; Stop 11/03/16 at 12:29; Status DC Doxycycline Hyclate (Vibramycin) 100 mg BID PO Last administered on 11/13/16 20:22; Start 11/04/16 at 09:00; Stop 11/14/16 at 08:59; Status DC Home Med (Med Rec Complete!) ASDIRECTED XX ; Start 10/28/16 at 19:45; Stop 03/05 at 00:35; Status DC Hydroxyzine HCl (Atarax) 10 mg Q8HP PRN PO ANXIETY Last administered on 21:41; Start 10/29/16 at 00:15; Stop 11/28/16 at 00:14 [place] Carbonate (Eskalith-Cr) 1,350 mg QHS PO Last administered on 11/21/16 20:14; Start 11/11/16 at 21:00; Stop 12/11/16 at 20:59 [place] Carbonate ([place] Carbonate) 150 mg BID PO Last administered on 09:14; Start 11/09/16 at 21:00; Stop 11/11/16 at 13:54; Status DC [place] Carbonate ([place] Carbonate) 600 mg BID PO Last administered on 08:56; Start 10/29/16 at 09:00; Stop 11/09/16 at 13:13; Status DC [place] Carbonate ([place] Carbonate) 600 mg BID PO Last administered on 09:14; Start 11/09/16 at 21:00; Stop 11/11/16 at 13:54; Status DC Magnesium Hydroxide (Milk Of Magnesia) 30 ml DAILYPRN PRN PO CONSTIPATION; Start 10/29/16 at 00:15; Stop 11/28/16 at 00:14 Naltrexone HCl (Revia) 50 mg QHS PO Last administered on 11/21/16 20:14; Start 10/29/16 at 21:00; Stop 11/28/16 at 20:59 Non-Formulary Medication ( See Comment Field Below ) SEE COMMENTS SECTION 1T @10 XX ; Start 11/16/16 at 10:00; Stop 11/17/16 at 09:59; Status UNV Non-Formulary Medication ( See Comment Field Below ) SEE LABEL COMMENTS DAILY XX ; Start 11/14/16 at 09:00; Stop 11/14/16 at 12:26; Status DC Olanzapine (ZyPREXA) 30 mg QHS PO Last administered on 11/21/16 20:14; Start at 21:00; Stop 11/28/16 at 20:59 Trazodone HCl (Desyrel) 50 mg QHSP PRN PO INSOMNIA Last administered on 20:24; Start 10/29/16 at 00:15; Stop 11/10/16 at 16:32; Status DC Allergies Coded Allergies: Penicillins (Verified Allergy, Unknown, 06/19/12) SABINO HINOJOSA MD Nov 22, 2016 16:55
[2016-11-22 18:00] VITALS: BP 131/60
[2016-11-22] MEDS: LITHIUM CARBONATE 450 MG **CR** TAB PO SCH (21:41)
[2016-11-22] MEDS: OLANZapine 10 MG TAB PO SCH (21:41)
[2016-11-22] MEDS: hydrOXYzine 10 MG TAB PO PRN (21:41)
[2016-11-22] MEDS: DIVALPROEX 500MG *ER* TAB PO SCH (21:41)
[2016-11-22] MEDS: DIVALPROEX 250MG *ER* TAB PO SCH (21:41)
[2016-11-22] MEDS: NALTREXONE 50 MG TAB PO SCH (21:41)
[2016-11-22] MEDS: ACETAMINOPHEN TAB 650MG DOSE (2X325MG) PO PRN (21:42)
[2016-11-23 06:44] VITALS: BP 103/56
[2016-11-23 07:22] LABS: ALBUMIN 3.4 GM/DL (3.2-5.2); ALBUMIN/GLOBULIN RATIO 0.87 (1.00-1.93); ALKALINE PHOSPHATASE 42 U/L (45-117); ALT/SGPT 22 U/L (12-78); ANION GAP 9 MEQ/L (8-16); AST/SGOT 13 U/L (15-37); BILIRUBIN,TOTAL 0.2 MG/DL (0.2-1.0); BLOOD UREA NITROGEN 4 MG/DL (7-18); CALCIUM LEVEL 9.2 MG/DL (8.5-10.1); CARBON DIOXIDE LEVEL 29 MEQ/L (21-32); CHLORIDE LEVEL 106 MEQ/L (98-107); CREATININE FOR GFR 0.63 MG/DL (0.55-1.02); GLOMERULAR FILTRATION RATE > 60.0 (>60); GLUCOSE, FASTING 92 MG/DL (70-105); LITHIUM LEVEL 1.51 MEQ/L (0.60-1.20); POTASSIUM SERUM 3.9 MEQ/L (3.5-5.1); SODIUM LEVEL 144 MEQ/L (136-145); TOTAL PROTEIN 7.3 GM/DL (6.4-8.2)
[2016-11-23] MEDS: ARIPiprazole 10 MG TAB PO SCH (08:05)
--- NOTE | 2016-11-23 17:04 | MHIPNPDOC ---
[facility] Progress Note Progress Note DATE OF SERVICE: 11/23/16 HISTORY: Patient was seen and evaluated. She reported that almost everyday She had feeling that she is in hell & hearing voices most of the times with that feeling but today she feels better and she feels that she is in haven. She also reported that she feels like dancing and was found to be dancing in the hallway. She seems to be improving in her hygiene and grooming and able to wake up morning, take shower and eat breakfast, ADLs are improving, also participating in the unit activities including group therapy and milieu treatment, continued to take naps throughout the day. She currently denies any suicidal or homicidal ideations, and denies auditory or visual hallucinations, but continued to feel confused about being in hell/haven & not being alive. Eating and sleeping fine. VITAL SIGNS: See below. CURRENT MEDICATIONS: See below. MENTAL STATUS EXAMINATION: 26yo female sitting in the chair, looks older than the stated age, improving hygiene and grooming, normal psychomotor activities, no abnormal movements, superficially cooperative with fair eye contact, speech is soft, normal in rate , normal rhythm, amount and prosody, mood is confused', affect labile and mood congruent, thought process is logical & goal directed but religiously preoccupied, denies suicidal and homicidal ideations, denies hallucinations currently, paranoid, aaox3, limited insight, judgement and impulse control Assessment: Patient seemed to have fluctuating level of psychosis & mood and at times feels confused because of psychosis, but continued to deny any suicidal or homicidal ideations, compliant with the current medications and denies side effects. Consider long-term inpatient psychiatric treatment in [facility] DIAGNOSES: 1. Schizoaffective disorder, bipolar type versus bipolar disorder with psychosis. MANAGEMENT PLAN: Continue current treatment, repeat lithium level tomorrow, its not trough level TIME SPENT:. 15 minutes. Vital Signs Vital Signs Date Time Temp Pulse Resp B/P (MAP) Pulse Ox O2 Delivery O2 Flow Rate FiO2 11/23/16 06:44 98.0 89 14 103/56 (72) Room Air Laboratory Data 24H Labs Laboratory Tests 2 11/23/16 06:29: Anion Gap 9, Glomerular Filtration Rate > 60.0, Blood Urea Nitrogen 4L, Creatinine 0.63, Sodium Level 144, Potassium Level 3.9, Chloride Level 106, Carbon Dioxide Level 29, Calcium Level 9.2, Aspartate Amino Transf (AST/SGOT) 13L, Alanine Aminotransferase (ALT/SGPT) 22, Alkaline Phosphatase 42L, Total Bilirubin 0.2, Total Protein 7.3, Albumin 3.4, Albumin/Globulin Ratio 0.87L, Valproic Acid (Depakene) Level 59.9, [place] Level 1.51H CBC/BMP Laboratory Tests 11/23/16 06:29 Calcium Level 9.2, Aspartate Amino Transf (AST/SGOT) 13 L, Alanine Aminotransferase (ALT/SGPT) 22, Alkaline Phosphatase 42 L, Total Bilirubin 0.2, Total Protein 7.3, Albumin 3.4 Current Medications Current Medications Acetaminophen (Tylenol Tab) 650 mg Q6HP PRN PO HEADACHE or DISCOMFORT Last administered on 11/22/16 21:42; Start 10/29/16 at 00:15; Stop 11/28/16 at 00:14 Al Hydrox/Mg Hydrox/Simethicone (Mylanta) 30 ml Q4HP PRN PO HEARTBURN/ INDIGESTION Last administered on 11/22/16 09:30; Start 10/29/16 at 00:15; Stop 11/28/16 at 00:14 Aripiprazole (AbiLIFY) 5 mg DAILY PO Last administered on 11/15/16 09:11; Start 10/29/16 at 09:00; Stop 11/15/16 at 15:21; Status DC Aripiprazole (AbiLIFY) 10 mg DAILY PO Last administered on 11/23/16 08:05; Start 11/16/16 at 09:00; Stop 12/16/16 at 08:59 Cetylpyridinium Chloride (Cepacol) 1 zeke Q2HP PRN PO SORE THROAT Last administered on 11/21/16 18:31; Start 11/20/16 at 22:30; Stop 12/20/16 at 22:29 Divalproex Sodium (Depakote Er) 250 mg QHS PO Last administered on 11/22/16 21: 41; Start 11/16/16 at 21:00; Stop 12/16/16 at 20:59 Divalproex Sodium (Depakote Er) 1,500 mg QHS PO Last administered on 11/22/16 21:41; Start 11/10/16 at 21:00; Stop 12/10/16 at 20:59 Divalproex Sodium (Depakote) 500 mg DAILY PO Last administered on 11/10/16 09: 43; Start 10/29/16 at 09:00; Stop 11/10/16 at 16:32; Status DC Divalproex Sodium (Depakote) 1,000 mg QHS PO Last administered on 11/09/16 20: 29; Start 11/03/16 at 21:00; Stop 11/10/16 at 16:32; Status DC Divalproex Sodium (Depakote) 1,500 mg QHS PO Last administered on 11/02/16 20: 03; Start 10/29/16 at 21:00; Stop 11/03/16 at 12:29; Status DC Doxycycline Hyclate (Vibramycin) 100 mg BID PO Last administered on 11/13/16 20:22; Start 11/04/16 at 09:00; Stop 11/14/16 at 08:59; Status DC Home Med (Med Rec Complete!) ASDIRECTED XX ; Start 10/28/16 at 19:45; Stop 03/05 at 00:35; Status DC Hydroxyzine HCl (Atarax) 10 mg Q8HP PRN PO ANXIETY Last administered on 21:41; Start 10/29/16 at 00:15; Stop 11/28/16 at 00:14 [place] Carbonate (Eskalith-Cr) 1,350 mg QHS PO Last administered on 11/22/16 21:41; Start 11/11/16 at 21:00; Stop 12/11/16 at 20:59 [place] Carbonate ([place] Carbonate) 150 mg BID PO Last administered on 09:14; Start 11/09/16 at 21:00; Stop 11/11/16 at 13:54; Status DC [place] Carbonate ([place] Carbonate) 600 mg BID PO Last administered on 08:56; Start 10/29/16 at 09:00; Stop 11/09/16 at 13:13; Status DC [place] Carbonate ([place] Carbonate) 600 mg BID PO Last administered on 09:14; Start 11/09/16 at 21:00; Stop 11/11/16 at 13:54; Status DC Magnesium Hydroxide (Milk Of Magnesia) 30 ml DAILYPRN PRN PO CONSTIPATION; Start 10/29/16 at 00:15; Stop 11/28/16 at 00:14 Naltrexone HCl (Revia) 50 mg QHS PO Last administered on 11/22/16 21:41; Start 10/29/16 at 21:00; Stop 11/28/16 at 20:59 Non-Formulary Medication ( See Comment Field Below ) SEE COMMENTS SECTION 1T @10 XX ; Start 11/16/16 at 10:00; Stop 11/17/16 at 09:59; Status UNV Non-Formulary Medication ( See Comment Field Below ) SEE LABEL COMMENTS DAILY XX ; Start 11/14/16 at 09:00; Stop 11/14/16 at 12:26; Status DC Olanzapine (ZyPREXA) 30 mg QHS PO Last administered on 11/22/16 21:41; Start at 21:00; Stop 11/28/16 at 20:59 Trazodone HCl (Desyrel) 50 mg QHSP PRN PO INSOMNIA Last administered on 20:24; Start 10/29/16 at 00:15; Stop 11/10/16 at 16:32; Status DC Allergies Coded Allergies: Penicillins (Verified Allergy, Unknown, 06/19/12) SABINO HINOJOSA MD Nov 23, 2016 17:04
[2016-11-23 18:00] VITALS: BP 123/76
[2016-11-23] MEDS: OLANZapine 10 MG TAB PO SCH (20:50)
[2016-11-23] MEDS: DIVALPROEX 500MG *ER* TAB PO SCH (20:50)
[2016-11-23] MEDS: hydrOXYzine 10 MG TAB PO PRN (20:50)
[2016-11-23] MEDS: NALTREXONE 50 MG TAB PO SCH (20:50)
[2016-11-23] MEDS: LITHIUM CARBONATE 450 MG **CR** TAB PO SCH (20:50)
[2016-11-23] MEDS: ACETAMINOPHEN TAB 650MG DOSE (2X325MG) PO PRN (20:52)
[2016-11-23] MEDS ORDERED: DIVALPROEX 250MG *ER* TAB PO SCH (21:00)
[2016-11-24] MEDS: ARIPiprazole 10 MG TAB PO SCH (08:26)
[2016-11-24 13:26] LABS: LITHIUM LEVEL 1.07 MEQ/L (0.60-1.20)
--- NOTE | 2016-11-24 17:18 | MHIPNPDOC ---
[facility] Progress Note Progress Note DATE OF SERVICE: 11/24/16 HISTORY: Patient was seen and evaluated. Patient seems to be improving on her psychoses and also in her ADLs, able to take care of herself better, but still has some fluctuations in her psychosis where she is thinking of being in haven and not being alive, and she needs repeated prompting an orientation that where she is & what's date. She currently denies any suicidal or homicidal ideations , and denies auditory or visual hallucinations, but continued to feel confused about being in hell/haven & not being alive. Eating and sleeping fine. VITAL SIGNS: See below. CURRENT MEDICATIONS: See below. MENTAL STATUS EXAMINATION: 26yo female sitting in the chair, looks older than the stated age, improving hygiene and grooming, normal psychomotor activities, no abnormal movements, superficially cooperative with fair eye contact, speech is soft, normal in rate , normal rhythm, amount and prosody, mood is confused', affect labile and mood congruent, thought process is logical & goal directed but religiously preoccupied, denies suicidal and homicidal ideations, denies hallucinations currently, paranoid, aaox3, limited insight, judgement and impulse control Assessment: Patient seemed to have fluctuating level of psychosis & mood and at times feels confused because of psychosis, but continued to deny any suicidal or homicidal ideations, compliant with the current medications and denies side effects. Consider long-term inpatient psychiatric treatment in [facility] DIAGNOSES: 1. Schizoaffective disorder, bipolar type versus bipolar disorder with psychosis. MANAGEMENT PLAN: Continue current treatment, TIME SPENT:. 15 minutes. Vital Signs Vital Signs Date Time Temp Pulse Resp B/P (MAP) Pulse Ox O2 Delivery O2 Flow Rate FiO2 11/23/16 18:00 98.2 88 16 123/76 (92) 11/23/16 06:44 Room Air Laboratory Data 24H Labs Laboratory Tests 2 11/24/16 09:54: [place] Level 1.07 Current Medications Current Medications Acetaminophen (Tylenol Tab) 650 mg Q6HP PRN PO HEADACHE or DISCOMFORT Last administered on 11/23/16t 20:52; Start 10/29/16 at 00:15; Stop 11/28/16 at 00:14 Al Hydrox/Mg Hydrox/Simethicone (Mylanta) 30 ml Q4HP PRN PO HEARTBURN/ INDIGESTION Last administered on 11/22/16 09:30; Start 10/29/16 at 00:15; Stop 11/28/16 at 00:14 Aripiprazole (AbiLIFY) 5 mg DAILY PO Last administered on 11/15/16 09:11; Start 10/29/16 at 09:00; Stop 11/15/16 at 15:21; Status DC Aripiprazole (AbiLIFY) 10 mg DAILY PO Last administered on 11/24/16 08:26; Start 11/16/16 at 09:00; Stop 12/16/16 at 08:59 Cetylpyridinium Chloride (Cepacol) 1 zeke Q2HP PRN PO SORE THROAT Last administered on 11/21/16 18:31; Start 11/20/16 at 22:30; Stop 12/20/16 at 22:29 Divalproex Sodium (Depakote Er) 250 mg QHS PO Last administered on 11/22/16 21: 41; Start 11/16/16 at 21:00; Stop 11/23/16 at 17:02; Status DC Divalproex Sodium (Depakote Er) 500 mg QHS PO ; Start 11/23/16 at 21:00; Stop 11/23/16 at 21:00; Status DC Divalproex Sodium (Depakote Er) 1,500 mg QHS PO Last administered on 11/22/16 21:41; Start 11/10/16 at 21:00; Stop 11/23/16 at 17:06; Status DC Divalproex Sodium (Depakote Er) 2,000 mg QHS PO Last administered on 11/23/16 20:50; Start 11/23/16 at 17:06; Stop 12/10/16 at 20:59 Divalproex Sodium (Depakote) 500 mg DAILY PO Last administered on 11/10/16 09: 43; Start 10/29/16 at 09:00; Stop 11/10/16 at 16:32; Status DC Divalproex Sodium (Depakote) 1,000 mg QHS PO Last administered on 11/09/16 20: 29; Start 11/03/16 at 21:00; Stop 11/10/16 at 16:32; Status DC Divalproex Sodium (Depakote) 1,500 mg QHS PO Last administered on 11/02/16 20: 03; Start 10/29/16 at 21:00; Stop 11/03/16 at 12:29; Status DC Doxycycline Hyclate (Vibramycin) 100 mg BID PO Last administered on 11/13/16 20:22; Start 11/04/16 at 09:00; Stop 11/14/16 at 08:59; Status DC Home Med (Med Rec Complete!) ASDIRECTED XX ; Start 10/28/16 at 19:45; Stop 03/05 at 00:35; Status DC Hydroxyzine HCl (Atarax) 10 mg Q8HP PRN PO ANXIETY Last administered on 20:50; Start 10/29/16 at 00:15; Stop 11/28/16 at 00:14 [place] Carbonate (Eskalith-Cr) 1,350 mg QHS PO Last administered on 11/23/16 20:50; Start 11/11/16 at 21:00; Stop 12/11/16 at 20:59 [place] Carbonate ([place] Carbonate) 150 mg BID PO Last administered on 09:14; Start 11/09/16 at 21:00; Stop 11/11/16 at 13:54; Status DC [place] Carbonate ([place] Carbonate) 600 mg BID PO Last administered on 08:56; Start 10/29/16 at 09:00; Stop 11/09/16 at 13:13; Status DC [place] Carbonate ([place] Carbonate) 600 mg BID PO Last administered on 09:14; Start 11/09/16 at 21:00; Stop 11/11/16 at 13:54; Status DC Magnesium Hydroxide (Milk Of Magnesia) 30 ml DAILYPRN PRN PO CONSTIPATION; Start 10/29/16 at 00:15; Stop 11/28/16 at 00:14 Naltrexone HCl (Revia) 50 mg QHS PO Last administered on 11/23/16 20:50; Start 10/29/16 at 21:00; Stop 11/28/16 at 20:59 Non-Formulary Medication ( See Comment Field Below ) SEE COMMENTS SECTION 1T @10 XX ; Start 11/16/16 at 10:00; Stop 11/17/16 at 09:59; Status UNV Non-Formulary Medication ( See Comment Field Below ) SEE LABEL COMMENTS DAILY XX ; Start 11/14/16 at 09:00; Stop 11/14/16 at 12:26; Status DC Olanzapine (ZyPREXA) 30 mg QHS PO Last administered on 11/23/16 20:50; Start at 21:00; Stop 11/28/16 at 20:59 Trazodone HCl (Desyrel) 50 mg QHSP PRN PO INSOMNIA Last administered on 20:24; Start 10/29/16 at 00:15; Stop 11/10/16 at 16:32; Status DC Allergies Coded Allergies: Penicillins (Verified Allergy, Unknown, 06/19/12) SABINO HINOJOSA MD Nov 24, 2016 17:18
[2016-11-24 18:00] VITALS: BP 136/85
[2016-11-24] MEDS: OLANZapine 10 MG TAB PO SCH (21:10)
[2016-11-24] MEDS: DIVALPROEX 500MG *ER* TAB PO SCH (21:10)
[2016-11-24] MEDS: LITHIUM CARBONATE 450 MG **CR** TAB PO SCH (21:11)
[2016-11-24] MEDS: NALTREXONE 50 MG TAB PO SCH (21:11)
[2016-11-25 06:00] VITALS: BP 109/55
[2016-11-25] MEDS: ARIPiprazole 10 MG TAB PO SCH (09:05)
--- NOTE | 2016-11-25 10:17 | IPNPDOC ---
Date Seen The patient was seen on 11/25/16. Progress Note HISTORY OF PRESENT ILLNESS: Pt is currently admitted to [facility] for bipolar disorder. Requested to re evaluate for any medical issues. She states she is feeling well and has no concerns. Patient states left foot pain is better with wearing shoes. Pt states irritated area Left groin is resolved. PAST MEDICAL HISTORY: Schizophrenia Bipolar. Manic with psychotic symptoms, severe. PAST SURGICAL HISTORY: denies PHYSICAL EXAMINATION: 26-year-old female flat affect. Declines at this time. IMPRESSION AND PLAN: 1. Bipolar disorder. Mgmt as per Psychiatry. 2. Hydradenitis suppurativa. Completed Doxycycline 100mg po BID 12/27. Monitor. 3. Left foot pain. left foot XR 11/15/16 There is no acute fracture or dislocation. LE U/S 11/15/16 No evidence of deep venous thrombosis of the left lower extremity femoral popliteal venous system. 4. H/O Pt reporting vaginal discharge. Pt is currently stating she has no concerns or symptoms. HIV screening neg 11/07/16 Add GC/Chlamydia/RPR. Add UA/UC. Monitor. 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 VS, I&O, 24H, Fishbone Vital Signs/I&O Vital Signs Date Time Temp Pulse Resp B/P (MAP) Pulse Ox O2 Delivery O2 Flow Rate FiO2 11/25/16 06:00 97.9 79 16 109/55 (73) 11/23/16 06:44 Room Air Kathie Dumont Nov 25, 2016 10:17
--- NOTE | 2016-11-25 17:53 | MHIPNPDOC ---
[facility] Progress Note Progress Note DATE OF SERVICE: 11/25/16 HISTORY: Patient was seen and evaluated. Patient seems to be improving on her psychoses and also in her ADLs, able to take care of herself better, but still has some fluctuations in her psychosis where she is thinking of not being alive. Seems to be elated at times but no clear symptoms of [place] soon, 'I want to find cure for AIDS' instead of previous believes of having AIDS for self. She currently denies any suicidal or homicidal ideations, and denies auditory or visual hallucinations. Eating and sleeping fine. VITAL SIGNS: See below. CURRENT MEDICATIONS: See below. MENTAL STATUS EXAMINATION: 26yo female sitting in the chair, looks older than the stated age, improving hygiene and grooming, normal psychomotor activities, no abnormal movements, superficially cooperative with fair eye contact, speech is soft, normal in rate , normal rhythm, amount and prosody, mood is confused', affect labile and mood congruent, thought process is logical & goal directed but religiously preoccupied, denies suicidal and homicidal ideations, denies hallucinations currently, paranoid, aaox3, limited insight, judgement and impulse control Assessment: Patient seemed to have fluctuating level of psychosis & mood,, continued to deny any suicidal or homicidal ideations, compliant with the current medications and denies side effects. Consider long-term inpatient psychiatric treatment in [facility] DIAGNOSES: 1. Schizoaffective disorder, bipolar type versus bipolar disorder with psychosis. MANAGEMENT PLAN: Continue current treatment, TIME SPENT:. 15 minutes. Vital Signs Vital Signs Date Time Temp Pulse Resp B/P (MAP) Pulse Ox O2 Delivery O2 Flow Rate FiO2 11/25/16 06:00 97.9 79 16 109/55 (73) 11/23/16 06:44 Room Air Laboratory Data 24H Labs Laboratory Tests 2 11/25/16 11:30: Urine Appearance CLEAR, Urine Color YELLOW, Urine pH 7.0, Urine Specific [place] 1.015, Urine Protein NEGATIVE, Urine Glucose (UA) NEGATIVE, Urine Ketones TRACEH, Urine Urobilinogen 0.2, Urine Bilirubin NEGATIVE, Urine Leukocyte Esterase NEGATIVE, Urine Blood NEGATIVE, Urine Nitrite NEGATIVE, Urine WBC (Auto) 2, Urine RBC (Auto) 1, Urine Hyaline Casts (Auto) 0, Urine Bacteria (Auto) NEGATIVE, Urine Squamous Epithelial Cells 6, Urine Mucus (Auto) SMALL, Urine Sperm (Auto) , Chlamydia trachomatis DNA (MADI) NEGATIVE, Neisseria gonorrhoeae DNA (MADI) NEGATIVE Current Medications Current Medications Acetaminophen (Tylenol Tab) 650 mg Q6HP PRN PO HEADACHE or DISCOMFORT Last administered on 11/23/16 20:52; Start 10/29/16 at 00:15; Stop 11/28/16 at 00:14 Al Hydrox/Mg Hydrox/Simethicone (Mylanta) 30 ml Q4HP PRN PO HEARTBURN/ INDIGESTION Last administered on 11/22/16 09:30; Start 10/29/16 at 00:15; Stop 11/28/16 at 00:14 Aripiprazole (AbiLIFY) 5 mg DAILY PO Last administered on 11/15/16 09:11; Start 10/29/16 at 09:00; Stop 11/15/16 at 15:21; Status DC Aripiprazole (AbiLIFY) 5 mg DAILY PO ; Start 11/26/16 at 09:00; Stop 12/26/16 at 08:59 Aripiprazole (AbiLIFY) 10 mg DAILY PO Last administered on 11/25/16 09:05; Start 11/16/16 at 09:00; Stop 11/25/16 at 11:16; Status DC Cetylpyridinium Chloride (Cepacol) 1 zeke Q2HP PRN PO SORE THROAT Last administered on 11/21/16 18:31; Start 11/20/16 at 22:30; Stop 12/20/16 at 22:29 Divalproex Sodium (Depakote Er) 250 mg QHS PO Last administered on 11/22/16 21: 41; Start 11/16/16 at 21:00; Stop 11/23/16 at 17:02; Status DC Divalproex Sodium (Depakote Er) 500 mg QHS PO ; Start 11/23/16 at 21:00; Stop 11/23/16 at 21:00; Status DC Divalproex Sodium (Depakote Er) 1,500 mg QHS PO Last administered on 11/22/16 21:41; Start 11/10/16 at 21:00; Stop 11/23/16 at 17:06; Status DC Divalproex Sodium (Depakote Er) 2,000 mg QHS PO Last administered on 11/24/16 21:10; Start 11/23/16 at 17:06; Stop 12/10/16 at 20:59 Divalproex Sodium (Depakote) 500 mg DAILY PO Last administered on 11/10/16 09: 43; Start 10/29/16 at 09:00; Stop 11/10/16 at 16:32; Status DC Divalproex Sodium (Depakote) 1,000 mg QHS PO Last administered on 11/09/16 20: 29; Start 11/03/16 at 21:00; Stop 11/10/16 at 16:32; Status DC Divalproex Sodium (Depakote) 1,500 mg QHS PO Last administered on 11/02/16 20: 03; Start 10/29/16 at 21:00; Stop 11/03/16 at 12:29; Status DC Doxycycline Hyclate (Vibramycin) 100 mg BID PO Last administered on 11/13/16 20:22; Start 11/04/16 at 09:00; Stop 11/14/16 at 08:59; Status DC Home Med (Med Rec Complete!) ASDIRECTED XX ; Start 10/28/16 at 19:45; Stop 03/05 at 00:35; Status DC Hydroxyzine HCl (Atarax) 10 mg Q8HP PRN PO ANXIETY Last administered on 20:50; Start 10/29/16 at 00:15; Stop 11/28/16 at 00:14 [place] Carbonate (Eskalith-Cr) 1,350 mg QHS PO Last administered on 11/24/16 21:11; Start 11/11/16 at 21:00; Stop 12/11/16 at 20:59 [place] Carbonate ([place] Carbonate) 150 mg BID PO Last administered on 09:14; Start 11/09/16 at 21:00; Stop 11/11/16 at 13:54; Status DC [place] Carbonate ([place] Carbonate) 600 mg BID PO Last administered on 08:56; Start 10/29/16 at 09:00; Stop 11/09/16 at 13:13; Status DC [place] Carbonate ([place] Carbonate) 600 mg BID PO Last administered on 09:14; Start 11/09/16 at 21:00; Stop 11/11/16 at 13:54; Status DC Magnesium Hydroxide (Milk Of Magnesia) 30 ml DAILYPRN PRN PO CONSTIPATION; Start 10/29/16 at 00:15; Stop 11/28/16 at 00:14 Naltrexone HCl (Revia) 50 mg QHS PO Last administered on 11/24/16 21:11; Start 10/29/16 at 21:00; Stop 11/28/16 at 20:59 Non-Formulary Medication ( See Comment Field Below ) SEE COMMENTS SECTION 1T @10 XX ; Start 11/16/16 at 10:00; Stop 11/17/16 at 09:59; Status UNV Non-Formulary Medication ( See Comment Field Below ) SEE LABEL COMMENTS DAILY XX ; Start 11/14/16 at 09:00; Stop 11/14/16 at 12:26; Status DC Olanzapine (ZyPREXA) 30 mg QHS PO Last administered on 11/24/16 21:10; Start at 21:00; Stop 11/28/16 at 20:59 Trazodone HCl (Desyrel) 50 mg QHSP PRN PO INSOMNIA Last administered on 20:24; Start 10/29/16 at 00:15; Stop 11/10/16 at 16:32; Status DC Allergies Coded Allergies: Penicillins (Verified Allergy, Unknown, 06/19/12) SABINO HINOJOSA MD Nov 25, 2016 17:53
[2016-11-25 18:00] VITALS: BP 134/77
[2016-11-25] MEDS: LITHIUM CARBONATE 450 MG **CR** TAB PO SCH (21:14)
[2016-11-25] MEDS: OLANZapine 10 MG TAB PO SCH (21:14)
[2016-11-25] MEDS: DIVALPROEX 500MG *ER* TAB PO SCH (21:14)
[2016-11-25] MEDS: NALTREXONE 50 MG TAB PO SCH (21:14)
[2016-11-26 06:50] VITALS: BP 109/56
[2016-11-26 18:15] VITALS: BP 136/73
[2016-11-26] MEDS: OLANZapine 10 MG TAB PO SCH (21:37)
[2016-11-26] MEDS: DIVALPROEX 500MG *ER* TAB PO SCH (21:37)
[2016-11-26] MEDS: hydrOXYzine 10 MG TAB PO PRN (21:38)
[2016-11-26] MEDS: NALTREXONE 50 MG TAB PO SCH (21:38)
[2016-11-26] MEDS: ACETAMINOPHEN TAB 650MG DOSE (2X325MG) PO PRN (21:38)
[2016-11-26] MEDS: LITHIUM CARBONATE 450 MG **CR** TAB PO SCH (21:38)
[2016-11-27 06:47] VITALS: BP 133/74
[2016-11-27 18:14] VITALS: BP 118/64
[2016-11-27] MEDS: LITHIUM CARBONATE 450 MG **CR** TAB PO SCH (20:18)
[2016-11-27] MEDS: OLANZapine 10 MG TAB PO SCH (20:18)
[2016-11-27] MEDS: DIVALPROEX 500MG *ER* TAB PO SCH (20:18)
[2016-11-27] MEDS: NALTREXONE 50 MG TAB PO SCH (20:19)
[2016-11-28 07:06] VITALS: BP 106/63
--- NOTE | 2016-11-28 17:00 | MHIPNPDOC ---
[facility] Progress Note Progress Note DATE OF SERVICE: 11/28/16 HISTORY: Patient was seen and evaluated. Patient seems to be improving on her psychoses and also in her ADLs, able to take care of herself better, but still has some fluctuations in her psychosis. Today, she was found in the hallway making gestures of being angry and responding to internal stimuli, when asked details she stayed people are taking advantage of her kindness and needed to be showed her angry, side also. No agitation or aggressive episodes reported and she was verbally redirectable. Seems to be elated/irritable at times but no clear symptoms of chico. She currently denies any suicidal or homicidal ideations, and denies auditory or visual hallucinations. Eating and sleeping fine. VITAL SIGNS: See below. CURRENT MEDICATIONS: See below. MENTAL STATUS EXAMINATION: 26yo female sitting in the chair, looks older than the stated age, improving hygiene and grooming, normal psychomotor activities, no abnormal movements, superficially cooperative with fair eye contact, speech is soft, normal in rate , normal rhythm, amount and prosody, mood is confused', affect labile and mood congruent, thought process is logical & goal directed but religiously preoccupied, denies suicidal and homicidal ideations, denies hallucinations currently, paranoid, aaox3, limited insight, judgement and impulse control Assessment: Patient seemed to have fluctuating level of psychosis & mood,, continued to deny any suicidal or homicidal ideations, compliant with the current medications and denies side effects. Possible transfer for long-term inpatient psychiatric treatment in [facility] on Monday DIAGNOSES: 1. Schizoaffective disorder, bipolar type versus bipolar disorder with psychosis. MANAGEMENT PLAN: Continue current treatment, TIME SPENT:. 15 minutes. Vital Signs Vital Signs Date Time Temp Pulse Resp B/P (MAP) Pulse Ox O2 Delivery O2 Flow Rate FiO2 11/28/16 07:06 97.6 93 20 106/63 (77) Room Air Current Medications Current Medications Acetaminophen (Tylenol Tab) 650 mg Q6HP PRN PO HEADACHE or DISCOMFORT Last administered on 11/26/16 21:38; Start 10/29/16 at 00:15; Stop 12/27/16 at 00:14 Al Hydrox/Mg Hydrox/Simethicone (Mylanta) 30 ml Q4HP PRN PO HEARTBURN/ INDIGESTION Last administered on 11/22/16 09:30; Start 10/29/16 at 00:15; Stop 12/27/16 at 00:14 Aripiprazole (AbiLIFY) 5 mg DAILY PO Last administered on 11/15/16 09:11; Start 10/29/16 at 09:00; Stop 11/15/16 at 15:21; Status DC Aripiprazole (AbiLIFY) 5 mg DAILY PO Last administered on 11/28/16 08:01; Start 11/26/16 at 09:00; Stop 12/26/16 at 08:59 Aripiprazole (AbiLIFY) 10 mg DAILY PO Last administered on 11/25/16 09:05; Start 11/16/16 at 09:00; Stop 11/25/16 at 11:16; Status DC Cetylpyridinium Chloride (Cepacol) 1 zeke Q2HP PRN PO SORE THROAT Last administered on 11/21/16 18:31; Start 11/20/16 at 22:30; Stop 12/20/16 at 22:29 Divalproex Sodium (Depakote Er) 250 mg QHS PO Last administered on 11/22/16 21: 41; Start 11/16/16 at 21:00; Stop 11/23/16 at 17:02; Status DC Divalproex Sodium (Depakote Er) 500 mg QHS PO ; Start 11/23/16 at 21:00; Stop 11/23/16 at 21:00; Status DC Divalproex Sodium (Depakote Er) 1,500 mg QHS PO Last administered on 11/22/16 21:41; Start 11/10/16 at 21:00; Stop 11/23/16 at 17:06; Status DC Divalproex Sodium (Depakote Er) 2,000 mg QHS PO Last administered on 11/27/16 20:18; Start 11/23/16 at 17:06; Stop 12/10/16 at 20:59 Divalproex Sodium (Depakote) 500 mg DAILY PO Last administered on 11/10/16 09: 43; Start 10/29/16 at 09:00; Stop 11/10/16 at 16:32; Status DC Divalproex Sodium (Depakote) 1,000 mg QHS PO Last administered on 11/09/16 20: 29; Start 11/03/16 at 21:00; Stop 11/10/16 at 16:32; Status DC Divalproex Sodium (Depakote) 1,500 mg QHS PO Last administered on 11/02/16 20: 03; Start 10/29/16 at 21:00; Stop 11/03/16 at 12:29; Status DC Doxycycline Hyclate (Vibramycin) 100 mg BID PO Last administered on 11/13/16 20:22; Start 11/04/16 at 09:00; Stop 11/14/16 at 08:59; Status DC Home Med (Med Rec Complete!) ASDIRECTED XX ; Start 10/28/16 at 19:45; Stop 03/05 at 00:35; Status DC Hydroxyzine HCl (Atarax) 10 mg Q8HP PRN PO ANXIETY Last administered on 21:38; Start 10/29/16 at 00:15; Stop 12/27/16 at 00:14 [place] Carbonate (Eskalith-Cr) 1,350 mg QHS PO Last administered on 11/27/16 20:18; Start 11/11/16 at 21:00; Stop 12/11/16 at 20:59 [place] Carbonate ([place] Carbonate) 150 mg BID PO Last administered on 09:14; Start 11/09/16 at 21:00; Stop 11/11/16 at 13:54; Status DC [place] Carbonate ([place] Carbonate) 600 mg BID PO Last administered on 08:56; Start 10/29/16 at 09:00; Stop 11/09/16 at 13:13; Status DC [place] Carbonate ([place] Carbonate) 600 mg BID PO Last administered on 09:14; Start 11/09/16 at 21:00; Stop 11/11/16 at 13:54; Status DC Magnesium Hydroxide (Milk Of Magnesia) 30 ml DAILYPRN PRN PO CONSTIPATION; Start 10/29/16 at 00:15; Stop 12/27/16 at 00:14 Naltrexone HCl (Revia) 50 mg QHS PO Last administered on 11/27/16 20:19; Start 10/29/16 at 21:00; Stop 12/27/16 at 20:59 Non-Formulary Medication ( See Comment Field Below ) SEE COMMENTS SECTION 1T @10 XX ; Start 11/16/16 at 10:00; Stop 11/17/16 at 09:59; Status UNV Non-Formulary Medication ( See Comment Field Below ) SEE LABEL COMMENTS DAILY XX ; Start 11/14/16 at 09:00; Stop 11/14/16 at 12:26; Status DC Olanzapine (ZyPREXA) 30 mg QHS PO Last administered on 11/27/16 20:18; Start 10/29/16 at 21:00; Stop 12/27/16 at 20:59 Trazodone HCl (Desyrel) 50 mg QHSP PRN PO INSOMNIA Last administered on 20:24; Start 10/29/16 at 00:15; Stop 11/10/16 at 16:32; Status DC Allergies Coded Allergies: Penicillins (Verified Allergy, Unknown, 06/19/12) SABINO HINOJOSA MD Nov 28, 2016 17:00
[2016-11-28 18:00] VITALS: BP 122/65
[2016-11-28] MEDS: hydrOXYzine 10 MG TAB PO PRN (22:03)
[2016-11-28] MEDS: LITHIUM CARBONATE 450 MG **CR** TAB PO SCH (22:03)
[2016-11-28] MEDS: DIVALPROEX 500MG *ER* TAB PO SCH (22:03)
[2016-11-28] MEDS: OLANZapine 10 MG TAB PO SCH (22:04)
[2016-11-28] MEDS: NALTREXONE 50 MG TAB PO SCH (22:04)
[2016-11-29 06:50] VITALS: BP 125/64
--- NOTE | 2016-11-29 13:21 | MHIPNPDOC ---
[facility] Progress Note Progress Note DATE OF SERVICE: 11/29/16 HISTORY: Patient was seen and evaluated. She opened up more about what was bothering her and making her angry yesterday and she reported that unknown people have been trying to take advantage of her and trying to stop her from spreading gospels around the world and trying to annihilate her, and she was getting upset about it. Denies any thoughts of confronting or getting into arguments with anybody. She denies any auditory or visual hallucinations. Patient seems to be improving on her psychosis and also in her ADLs, able to take care of herself better, but still has some fluctuations in her psychosis. No agitation or aggressive episodes reported and she was verbally redirectable. Seems to be elated/irritable at times but no clear symptoms of acute chico. She currently denies any suicidal or homicidal ideations, and denies auditory or visual hallucinations. Eating and sleeping fine. VITAL SIGNS: See below. CURRENT MEDICATIONS: See below. MENTAL STATUS EXAMINATION: 26yo female sitting in the chair, looks older than the stated age, improving hygiene and grooming, normal psychomotor activities, no abnormal movements, superficially cooperative with fair eye contact, speech is soft, normal in rate , normal rhythm, amount and prosody, mood is confused', affect labile and mood congruent, thought process is logical & goal directed but religiously preoccupied, denies suicidal and homicidal ideations, denies hallucinations currently, paranoid, aaox3, limited insight, judgement and impulse control Assessment: Patient seemed to have fluctuating level of psychosis & mood,, continued to deny any suicidal or homicidal ideations, compliant with the current medications and denies side effects. Possible transfer for long-term inpatient psychiatric treatment in [facility]. DIAGNOSES: 1. Schizoaffective disorder, bipolar type versus bipolar disorder with psychosis. MANAGEMENT PLAN: Continue current treatment, possible transfer to [facility] tomorrow TIME SPENT:. 15 minutes. Vital Signs Vital Signs Date Time Temp Pulse Resp B/P (MAP) Pulse Ox O2 Delivery O2 Flow Rate FiO2 11/29/16 06:50 98.0 92 18 125/64 (84) Room Air Current Medications Current Medications Acetaminophen (Tylenol Tab) 650 mg Q6HP PRN PO HEADACHE or DISCOMFORT Last administered on 11/26/16t 21:38; Start 10/29/16 at 00:15; Stop 12/27/16 at 00:14 Al Hydrox/Mg Hydrox/Simethicone (Mylanta) 30 ml Q4HP PRN PO HEARTBURN/ INDIGESTION Last administered on 11/22/16 09:30; Start 10/29/16 at 00:15; Stop 12/27/16 at 00:14 Aripiprazole (AbiLIFY) 5 mg DAILY PO Last administered on 11/15/16 09:11; Start 10/29/16 at 09:00; Stop 11/15/16 at 15:21; Status DC Aripiprazole (AbiLIFY) 5 mg DAILY PO Last administered on 11/29/16 08:22; Start 11/26/16 at 09:00; Stop 12/26/16 at 08:59 Aripiprazole (AbiLIFY) 10 mg DAILY PO Last administered on 11/25/16 09:05; Start 11/16/16 at 09:00; Stop 11/25/16 at 11:16; Status DC Cetylpyridinium Chloride (Cepacol) 1 zeke Q2HP PRN PO SORE THROAT Last administered on 11/21/16 18:31; Start 11/20/16 at 22:30; Stop 12/20/16 at 22:29 Divalproex Sodium (Depakote Er) 250 mg QHS PO Last administered on 11/22/16 21: 41; Start 11/16/16 at 21:00; Stop 11/23/16 at 17:02; Status DC Divalproex Sodium (Depakote Er) 500 mg QHS PO ; Start 11/23/16 at 21:00; Stop 11/23/16 at 21:00; Status DC Divalproex Sodium (Depakote Er) 1,500 mg QHS PO Last administered on 11/22/16 21:41; Start 11/10/16 at 21:00; Stop 11/23/16 at 17:06; Status DC Divalproex Sodium (Depakote Er) 2,000 mg QHS PO Last administered on 11/28/16 22:03; Start 11/23/16 at 17:06; Stop 12/10/16 at 20:59 Divalproex Sodium (Depakote) 500 mg DAILY PO Last administered on 11/10/16 09: 43; Start 10/29/16 at 09:00; Stop 11/10/16 at 16:32; Status DC Divalproex Sodium (Depakote) 1,000 mg QHS PO Last administered on 11/09/16 20: 29; Start 11/03/16 at 21:00; Stop 11/10/16 at 16:32; Status DC Divalproex Sodium (Depakote) 1,500 mg QHS PO Last administered on 11/02/16 20: 03; Start 10/29/16 at 21:00; Stop 11/03/16 at 12:29; Status DC Doxycycline Hyclate (Vibramycin) 100 mg BID PO Last administered on 11/13/16 20:22; Start 11/04/16 at 09:00; Stop 11/14/16 at 08:59; Status DC Home Med (Med Rec Complete!) ASDIRECTED XX ; Start 10/28/16 at 19:45; Stop 03/05 at 00:35; Status DC Hydroxyzine HCl (Atarax) 10 mg Q8HP PRN PO ANXIETY Last administered on 22:03; Start 10/29/16 at 00:15; Stop 12/27/16 at 00:14 [place] Carbonate (Eskalith-Cr) 1,350 mg QHS PO Last administered on 11/28/16 22:03; Start 11/11/16 at 21:00; Stop 12/11/16 at 20:59 [place] Carbonate ([place] Carbonate) 150 mg BID PO Last administered on 09:14; Start 11/09/16 at 21:00; Stop 11/11/16 at 13:54; Status DC [place] Carbonate ([place] Carbonate) 600 mg BID PO Last administered on 08:56; Start 10/29/16 at 09:00; Stop 11/09/16 at 13:13; Status DC [place] Carbonate ([place] Carbonate) 600 mg BID PO Last administered on 09:14; Start 11/09/16 at 21:00; Stop 11/11/16 at 13:54; Status DC Magnesium Hydroxide (Milk Of Magnesia) 30 ml DAILYPRN PRN PO CONSTIPATION; Start 10/29/16 at 00:15; Stop 12/27/16 at 00:14 Naltrexone HCl (Revia) 50 mg QHS PO Last administered on 11/28/16 22:04; Start 10/29/16 at 21:00; Stop 12/27/16 at 20:59 Non-Formulary Medication ( See Comment Field Below ) SEE COMMENTS SECTION 1T @10 XX ; Start 11/16/16 at 10:00; Stop 11/17/16 at 09:59; Status UNV Non-Formulary Medication ( See Comment Field Below ) SEE LABEL COMMENTS DAILY XX ; Start 11/14/16 at 09:00; Stop 11/14/16 at 12:26; Status DC Olanzapine (ZyPREXA) 30 mg QHS PO Last administered on 11/28/16 22:04; Start 10/29/16 at 21:00; Stop 12/27/16 at 20:59 Trazodone HCl (Desyrel) 50 mg QHSP PRN PO INSOMNIA Last administered on 20:24; Start 10/29/16 at 00:15; Stop 11/10/16 at 16:32; Status DC Allergies Coded Allergies: Penicillins (Verified Allergy, Unknown, 06/19/12) SABINO HINOJOSA MD Nov 29, 2016 13:21
[2016-11-29 18:00] VITALS: BP 116/74
[2016-11-29] MEDS: NALTREXONE 50 MG TAB PO SCH (21:35)
[2016-11-29] MEDS: OLANZapine 10 MG TAB PO SCH (21:35)
[2016-11-29] MEDS: DIVALPROEX 500MG *ER* TAB PO SCH (21:35)
[2016-11-29] MEDS: LITHIUM CARBONATE 450 MG **CR** TAB PO SCH (21:35)
[2016-11-30 06:44] VITALS: BP 99/55
[2016-11-30] MEDS ORDERED: DEPA500T2 PO (09:08)
[2016-11-30] MEDS ORDERED: ARIP5TA PO (09:08)
[2016-11-30] MEDS ORDERED: NALT50TA4 PO (09:08)
[2016-11-30] MEDS ORDERED: OLAN10TA2 PO (09:08)
[2016-11-30] MEDS ORDERED: LITH45TASA PO (09:08)
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
[2016-11-30] MEDS: hydrOXYzine 10 MG TAB PO PRN (12:03)
[2016-11-30] MEDS ORDERED: hydrOXYzine 25 MG TAB PO STA (13:07)
== END 2016-11-30 13:15 | DRG 753 ==
LOC: M ED 15:24 → M ED INP 18:55 → M PSY 21:19
PROVIDERS: ADMIT Psychiatry & Neurology Psychiatry; ATTEND Psychiatry & Neurology Psychiatry
DX: F30.2 Manic episode, severe with psychotic symptoms (principal); L73.2 Hidradenitis suppurativa; M79.672 Pain in left foot; Z81.8 Family history of other mental and behavioral disorders; Z88.0 Allergy status to penicillin; Z79.899 Other long term (current) drug therapy; Z62.811 Personal history of psychological abuse in childhood

== ENCOUNTER → 2017-06-22 | Outpatient (CLI) | payer MEDICAID ==
[2017-06-22 10:12] LABS: VALPROIC ACID (DEPAKOTE) 109.6 UG/ML (50.0-100.0)
== END ==
LOC: M WUC 08:27
DX: Z79.899 Other long term (current) drug therapy (principal)
CPT/HCPCS: 80164

== ENCOUNTER 2017-07-19 01:55 | Inpatient (IN) | payer MEDICAID, OTHER ==
[2017-07-19 05:28] LABS: HEMATOCRIT 31.6 % (36.0-47.0); HEMOGLOBIN 10.5 g/dl (12.0-15.5); MEAN CORPUSCULAR HGB CONC 33.2 g/dl (32.0-36.5); MEAN CORPUSCULAR VOLUME 93.2 fl (80.0-96.0); PLATELET COUNT, AUTOMATED 182 10^3/uL (150-450); RED BLOOD COUNT 3.39 10^6/uL (4.00-5.40); RED CELL DISTRIBUTION WIDTH 14.1 % (11.5-14.5); WHITE BLOOD COUNT 7.5 10^3/uL (4.0-10.0)
[2017-07-19 05:50] LABS: CONTROL LINE HCG INT CTR LINE PRESENT; HCG, SERUM QUALITATIVE NEGATIVE (NEGATIVE)
[2017-07-19 05:52] LABS: AMPHETAMINES LEVEL URINE NEGATIVE (NEGATIVE); BARBITURATES URINE NEGATIVE (NEGATIVE); BENZODIAZEPINES URINE NEGATIVE (NEGATIVE); CANNABINOIDS URINE NEGATIVE (NEGATIVE); COCAINE METABOLITE URINE NEGATIVE (NEGATIVE); METHADONE URINE NEGATIVE (NEGATIVE); OPIATES URINE NEGATIVE (NEGATIVE); PHENCYCLIDINE URINE NEGATIVE (NEGATIVE)
[2017-07-19 06:04] LABS: ACETAMINOPHEN LEVEL < 2.0 UG/ML (10.0-30.0); ALBUMIN 3.5 GM/DL (3.2-5.2); ALKALINE PHOSPHATASE 33 U/L (45-117); ALT/SGPT 17 U/L (12-78); ANION GAP 8 MEQ/L (8-16); AST/SGOT 14 U/L (7-37); BILIRUBIN,DIRECT < 0.1 MG/DL (0.0-0.2); BILIRUBIN,TOTAL < 0.1 MG/DL (0.2-1.0); BLOOD UREA NITROGEN 14 MG/DL (7-18); CALCIUM LEVEL 8.3 MG/DL (8.5-10.1); CARBON DIOXIDE LEVEL 25 MEQ/L (21-32); CHLORIDE LEVEL 110 MEQ/L (98-107); CREATININE FOR GFR 0.71 MG/DL (0.55-1.30); ETHYL ALCOHOL (ETHANOL) < 0.003 % (0.000-0.010); GLOMERULAR FILTRATION RATE > 60.0 (>60); GLUCOSE, FASTING 86 MG/DL (70-100); POTASSIUM SERUM 4.2 MEQ/L (3.5-5.1); SALICYLATE LEVEL 5.2 MG/DL (5.0-30.0); SODIUM LEVEL 143 MEQ/L (136-145); TOTAL PROTEIN 7.4 GM/DL (6.4-8.2)
[2017-07-19 06:06] LABS: LITHIUM LEVEL < 0.20 MEQ/L (0.60-1.20)
[2017-07-19] MEDS ORDERED: METAL LOCK LOOP XX (06:21)
[2017-07-19 10:34] LABS: HIV 1&2 SCREEN CENTAUR NEGATIVE (NEGATIVE)
[2017-07-19] MEDS: BACTRIM 160MG/800MG DS TAB PO ×2 (10:57→20:49)
[2017-07-19] MEDS: FOLIC ACID 1 MG TAB PO (14:26)
[2017-07-19] MEDS: FERROUS SULFATE 325MG TAB PO ×2 (14:26→20:49)
[2017-07-19 15:54] LABS: CPK CREATINE PHOSPHOKINASE 198 U/L (26-192); TROPONIN I < 0.02 NG/ML (< 0.10)
[2017-07-19 15:55] LABS: CK-MB VALUE MASS 1.6 NG/ML (<3.6)
[2017-07-19] MEDS: traZODone 50 MG TAB PO (20:49)
[2017-07-19] MEDS: HALOPERIDOL 5 MG TAB PO (20:49)
[2017-07-19] MEDS: DIVALPROEX 250 MG TAB PO (20:49)
[2017-07-19] MEDS ORDERED: BACTRIM 80MG/400MG TAB PO (21:00)
[2017-07-19] MEDS: OLANZapine ORAL DISINTEGRATING TAB 5MG PO (23:33)
[2017-07-20 06:37] LABS: HEMATOCRIT 29.6 % (36.0-47.0); HEMOGLOBIN 9.8 g/dl (12.0-15.5); MEAN CORPUSCULAR HEMOGLOBIN 30.6 pg (27.0-33.0); MEAN CORPUSCULAR HGB CONC 33.1 g/dl (32.0-36.5); MEAN CORPUSCULAR VOLUME 92.5 fl (80.0-96.0); PLATELET COUNT, AUTOMATED 165 10^3/uL (150-450); RED CELL DISTRIBUTION WIDTH 14.1 % (11.5-14.5); WHITE BLOOD COUNT 6.3 10^3/uL (4.0-10.0)
[2017-07-20 07:02] LABS: FERRITIN 196 NG/ML (8-252); IRON (FE) 110 UG/DL (50-170); PERCENT SATURATION 34.4 % (13.2-45.0); TOTAL IRON BINDING CAPACITY 320 UG/DL (250-450)
[2017-07-20] MEDS: FOLIC ACID 1 MG TAB PO (08:58)
[2017-07-20] MEDS: BACTRIM 160MG/800MG DS TAB PO ×2 (08:58→21:16)
[2017-07-20] MEDS: DIVALPROEX 250 MG TAB PO ×2 (08:58→21:16)
[2017-07-20] MEDS: HALOPERIDOL 5 MG TAB PO ×2 (08:58→21:16)
[2017-07-20] MEDS: FERROUS SULFATE 325MG TAB PO ×2 (08:58→21:16)
[2017-07-20 09:49] LABS: FOLATE > 24.0 NG/ML (>5.4)
[2017-07-20 09:59] LABS: VITAMIN B12 LEVEL 643 PG/ML (247-911)
[2017-07-20] MEDS: OLANZapine ORAL DISINTEGRATING TAB 5MG PO ×2 (18:23→21:16)
[2017-07-20] MEDS: traZODone 50 MG TAB PO (21:16)
[2017-07-21] MEDS: FERROUS SULFATE 325MG TAB PO ×2 (09:12→20:25)
[2017-07-21] MEDS: DIVALPROEX 250 MG TAB PO ×2 (09:12→20:26)
[2017-07-21] MEDS: HALOPERIDOL 5 MG TAB PO ×2 (09:12→20:26)
[2017-07-21] MEDS: BACTRIM 160MG/800MG DS TAB PO (09:12)
[2017-07-21] MEDS: FOLIC ACID 1 MG TAB PO (09:12)
[2017-07-21 09:43] LABS: CPK CREATINE PHOSPHOKINASE 132 U/L (26-192)
[2017-07-21] MEDS: HALOPERIDOL DECANOATE 100 MG/ML VIAL (J1631) IM (11:49)
[2017-07-21] MEDS: traZODone 50 MG TAB PO (20:25)
[2017-07-21] MEDS: ACETAMINOPHEN TAB 650MG DOSE (2X325MG) PO (20:26)
[2017-07-21] MEDS: OLANZapine ORAL DISINTEGRATING TAB 5MG PO (20:26)
[2017-07-22] MEDS: FERROUS SULFATE 325MG TAB PO ×2 (09:14→20:18)
[2017-07-22] MEDS: DIVALPROEX 250 MG TAB PO ×2 (09:14→20:20)
[2017-07-22] MEDS: HALOPERIDOL 5 MG TAB PO ×2 (09:14→20:19)
[2017-07-22] MEDS: FOLIC ACID 1 MG TAB PO (09:14)
[2017-07-22] MEDS: MAALOX 30 ML SUSP *UDC PO (19:51)
[2017-07-22] MEDS: MOM 30ML SUSPENSION UDC PO (19:52)
[2017-07-22] MEDS: OLANZapine ORAL DISINTEGRATING TAB 5MG PO (20:18)
[2017-07-23] MEDS: DIVALPROEX 250 MG TAB PO ×2 (10:43→21:07)
[2017-07-23] MEDS: HALOPERIDOL 5 MG TAB PO ×2 (10:43→21:07)
[2017-07-23] MEDS: FOLIC ACID 1 MG TAB PO (10:43)
[2017-07-23] MEDS: FERROUS SULFATE 325MG TAB PO ×2 (10:43→21:07)
[2017-07-23] MEDS: OLANZapine ORAL DISINTEGRATING TAB 5MG PO (21:07)
[2017-07-23] MEDS: traZODone 50 MG TAB PO (21:07)
[2017-07-24] MEDS: FERROUS SULFATE 325MG TAB PO (09:14)
[2017-07-24] MEDS: HALOPERIDOL 5 MG TAB PO (09:14)
[2017-07-24] MEDS: DIVALPROEX 250 MG TAB PO (09:15)
[2017-07-24] MEDS: FOLIC ACID 1 MG TAB PO (09:15)
== END 2017-07-24 12:45 | disposition home or self-care (01) | DRG 753 ==
LOC: M ED 01:55 → M ED INP 07:51 → M PSY 08:36
DX: F31.2 Bipolar disorder, current episode manic severe with psychotic features (principal); F41.9 Anxiety disorder, unspecified; F17.210 Nicotine dependence, cigarettes, uncomplicated; D64.9 Anemia, unspecified; E66.3 Overweight; Z68.29 Body mass index [BMI] 29.0-29.9, adult; Z88.0 Allergy status to penicillin; Z79.899 Other long term (current) drug therapy

== ENCOUNTER 2017-07-26 08:06 | Inpatient (IN) | payer MEDICAID, OTHER ==
[2017-07-26 08:44] LABS: HEMATOCRIT 31.2 % (36.0-47.0); HEMOGLOBIN 10.5 g/dl (12.0-15.5); MEAN CORPUSCULAR HEMOGLOBIN 30.7 pg (27.0-33.0); MEAN CORPUSCULAR HGB CONC 33.7 g/dl (32.0-36.5); MEAN CORPUSCULAR VOLUME 91.2 fl (80.0-96.0); PLATELET COUNT, AUTOMATED 175 10^3/uL (150-450); RED BLOOD COUNT 3.42 10^6/uL (4.00-5.40)
[2017-07-26] MEDS: OLANZapine ORAL DISINTEGRATING TAB 5MG PO ×2 (08:56→23:03)
[2017-07-26] MEDS: HALOPERIDOL 5 MG TAB PO ×2 (09:00→23:03)
[2017-07-26] MEDS: DIVALPROEX 250 MG TAB PO ×2 (09:00→23:03)
[2017-07-26] MEDS: FOLIC ACID 1 MG TAB PO (09:00)
[2017-07-26] MEDS: BENZTROPINE 1 MG TAB PO ×2 (09:00→23:03)
[2017-07-26] MEDS: FERROUS SULFATE 325MG TAB PO ×2 (09:00→23:03)
[2017-07-26 09:02] LABS: CONTROL LINE HCG INT CTR LINE PRESENT; HCG, SERUM QUALITATIVE NEGATIVE (NEGATIVE)
[2017-07-26 09:16] LABS: ACETAMINOPHEN LEVEL < 2.0 UG/ML (10.0-30.0); ALBUMIN 3.7 GM/DL (3.2-5.2); ALBUMIN/GLOBULIN RATIO 0.97 (1.00-1.93); ALKALINE PHOSPHATASE 34 U/L (45-117); ALT/SGPT 20 U/L (12-78); ANION GAP 7 MEQ/L (8-16); AST/SGOT 19 U/L (7-37); BILIRUBIN,DIRECT < 0.1 MG/DL (0.0-0.2); BILIRUBIN,TOTAL 0.3 MG/DL (0.2-1.0); BLOOD UREA NITROGEN 11 MG/DL (7-18); CALCIUM LEVEL 8.8 MG/DL (8.5-10.1); CARBON DIOXIDE LEVEL 26 MEQ/L (21-32); CHLORIDE LEVEL 106 MEQ/L (98-107); CREATININE FOR GFR 0.55 MG/DL (0.55-1.30); ETHYL ALCOHOL (ETHANOL) < 0.003 % (0.000-0.010); GLOMERULAR FILTRATION RATE > 60.0 (>60); GLUCOSE, FASTING 85 MG/DL (70-100); POTASSIUM SERUM 3.8 MEQ/L (3.5-5.1); SALICYLATE LEVEL 4.6 MG/DL (5.0-30.0); SODIUM LEVEL 139 MEQ/L (136-145); THYROID STIMULATING HORMONE 0.949 uIU/ML (0.358-3.740); TOTAL PROTEIN 7.5 GM/DL (6.4-8.2); VALPROIC ACID (DEPAKOTE) 91.6 UG/ML (50.0-100.0)
[2017-07-26 09:50] LABS: AMPHETAMINES LEVEL URINE NEGATIVE (NEGATIVE); BARBITURATES URINE NEGATIVE (NEGATIVE); BENZODIAZEPINES URINE NEGATIVE (NEGATIVE); CANNABINOIDS URINE NEGATIVE (NEGATIVE); COCAINE METABOLITE URINE NEGATIVE (NEGATIVE); METHADONE URINE NEGATIVE (NEGATIVE); OPIATES URINE NEGATIVE (NEGATIVE); PHENCYCLIDINE URINE NEGATIVE (NEGATIVE)
[2017-07-26] MEDS: OLANZapine 5 MG TAB PO (15:27)
[2017-07-26] MEDS: OLANZapine INTRAMUSCULAR 10 MG VIAL (S0166) IM (17:01)
[2017-07-26] MEDS: traZODone 50 MG TAB PO (23:03)
[2017-07-27] MEDS: DIVALPROEX 250 MG TAB PO ×2 (09:35→20:31)
[2017-07-27] MEDS: OLANZapine 5 MG TAB PO (09:35)
[2017-07-27] MEDS: BENZTROPINE 1 MG TAB PO ×2 (09:35→20:30)
[2017-07-27] MEDS: HALOPERIDOL 5 MG TAB PO (09:35)
[2017-07-27] MEDS: FERROUS SULFATE 325MG TAB PO ×2 (09:35→20:31)
[2017-07-27] MEDS: FOLIC ACID 1 MG TAB PO (09:35)
[2017-07-27] MEDS ORDERED: LORazepam 2 MG/ML VIAL (J2060) IV (10:39)
[2017-07-27] MEDS ORDERED: OLANZapine INTRAMUSCULAR 10 MG VIAL (S0166) IM (10:45)
[2017-07-27] MEDS: LORazepam 2 MG/ML VIAL (J2060) IM (11:03)
[2017-07-27] MEDS: OLANZapine INTRAMUSCULAR 10 MG VIAL (S0166) IM (11:07)
[2017-07-27] MEDS: CIPROFLOXACIN 500 MG TAB PO (18:28)
[2017-07-27] MEDS: LORazepam 2 MG TAB PO (20:30)
[2017-07-27] MEDS: HALOPERIDOL 10 MG TAB PO (20:30)
[2017-07-27] MEDS: OLANZapine ORAL DISINTEGRATING TAB 5MG PO (20:31)
[2017-07-28] MEDS: CIPROFLOXACIN 500 MG TAB PO ×2 (05:59→17:30)
[2017-07-28] MEDS: DIVALPROEX 250 MG TAB PO ×2 (08:48→22:20)
[2017-07-28] MEDS: FERROUS SULFATE 325MG TAB PO ×2 (08:48→22:21)
[2017-07-28] MEDS: FOLIC ACID 1 MG TAB PO (08:48)
[2017-07-28] MEDS: HALOPERIDOL 10 MG TAB PO ×2 (08:48→22:21)
[2017-07-28] MEDS: BENZTROPINE 1 MG TAB PO ×2 (08:48→22:21)
[2017-07-28 13:46] LABS: KETONE, URINE AUTO RFX TRACE mg/dL (NEGATIVE); LEUKOCYTE ESTERASE UR AUTO RFX NEGATIVE (NEGATIVE); MUCUS, URINE RFX MODERATE (NEGATIVE); NITRITE, URINE AUTO RFX NEGATIVE (NEGATIVE); RBC, URINE AUTO RFX 2 /HPF (0-3); SPECIFIC GRAVITY UR AUTO RFX 1.032 (1.002-1.035); SQUAM EPITHELIAL CELL UR AURFX 7 /HPF (0-6); WBC, URINE AUTO RFX 2 /HPF (0-3)
[2017-07-28] MEDS: OLANZapine ORAL DISINTEGRATING TAB 5MG PO ×2 (14:41→22:21)
[2017-07-28] MEDS ORDERED: MOM 30ML SUSPENSION UDC PO (17:45)
[2017-07-28] MEDS ORDERED: MAALOX 30 ML SUSP *UDC PO (17:45)
[2017-07-28] MEDS ORDERED: OLANZapine 5 MG TAB PO (17:45)
[2017-07-28] MEDS: traZODone 50 MG TAB PO (22:21)
[2017-07-29] MEDS: CIPROFLOXACIN 500 MG TAB PO ×2 (06:04→17:00)
[2017-07-29 07:52] LABS: ALBUMIN 3.5 GM/DL (3.2-5.2); ALBUMIN/GLOBULIN RATIO 0.92 (1.00-1.93); ALKALINE PHOSPHATASE 38 U/L (45-117); ALT/SGPT 36 U/L (12-78); ANION GAP 8 MEQ/L (8-16); AST/SGOT 22 U/L (7-37); BILIRUBIN,TOTAL 0.2 MG/DL (0.2-1.0); BLOOD UREA NITROGEN 12 MG/DL (7-18); CARBON DIOXIDE LEVEL 27 MEQ/L (21-32); CHLORIDE LEVEL 109 MEQ/L (98-107); CREATININE FOR GFR 0.63 MG/DL (0.55-1.30); GLOMERULAR FILTRATION RATE > 60.0 (>60); GLUCOSE, FASTING 100 MG/DL (70-100); POTASSIUM SERUM 4.5 MEQ/L (3.5-5.1); SODIUM LEVEL 144 MEQ/L (136-145); TOTAL PROTEIN 7.3 GM/DL (6.4-8.2)
[2017-07-29] MEDS: FOLIC ACID 1 MG TAB PO (08:54)
[2017-07-29] MEDS: BENZTROPINE 1 MG TAB PO ×2 (08:54→20:13)
[2017-07-29] MEDS: FERROUS SULFATE 325MG TAB PO ×2 (08:54→20:13)
[2017-07-29] MEDS: DIVALPROEX 250 MG TAB PO ×2 (08:54→20:13)
[2017-07-29] MEDS: HALOPERIDOL 10 MG TAB PO ×2 (08:54→20:13)
[2017-07-29] MEDS: LORazepam 1 MG TAB PO (16:11)
[2017-07-29] MEDS: OLANZapine ORAL DISINTEGRATING TAB 5MG PO (20:13)
[2017-07-30] MEDS: CIPROFLOXACIN 500 MG TAB PO ×2 (06:00→17:05)
[2017-07-30] MEDS: BENZTROPINE 1 MG TAB PO ×2 (09:06→20:20)
[2017-07-30] MEDS: DIVALPROEX 250 MG TAB PO ×2 (09:06→20:20)
[2017-07-30] MEDS: HALOPERIDOL 10 MG TAB PO ×2 (09:06→20:19)
[2017-07-30] MEDS: FOLIC ACID 1 MG TAB PO (09:06)
[2017-07-30] MEDS: FERROUS SULFATE 325MG TAB PO ×2 (09:06→20:20)
[2017-07-30] MEDS: OLANZapine ORAL DISINTEGRATING TAB 5MG PO (20:20)
[2017-07-30] MEDS: traZODone 50 MG TAB PO (20:20)
[2017-07-31] MEDS: CIPROFLOXACIN 500 MG TAB PO ×2 (06:04→17:47)
[2017-07-31] MEDS: HALOPERIDOL 10 MG TAB PO ×2 (08:53→19:23)
[2017-07-31] MEDS: FERROUS SULFATE 325MG TAB PO ×2 (08:54→19:23)
[2017-07-31] MEDS: FOLIC ACID 1 MG TAB PO (08:54)
[2017-07-31] MEDS: DIVALPROEX 250 MG TAB PO ×2 (08:54→19:24)
[2017-07-31] MEDS: BENZTROPINE 1 MG TAB PO ×2 (08:54→19:24)
[2017-07-31] MEDS ORDERED: **PENDING PPD ENTRY XX (09:00)
[2017-07-31] MEDS: TUBERCULIN PPD 5 UNITS/0.1 ML ID (14:34)
[2017-07-31] MEDS: OLANZapine ORAL DISINTEGRATING TAB 5MG PO ×2 (19:24→19:25)
[2017-08-01] MEDS: CIPROFLOXACIN 500 MG TAB PO ×2 (06:06→17:19)
[2017-08-01] MEDS: HALOPERIDOL 10 MG TAB PO ×2 (09:00→20:59)
[2017-08-01] MEDS: FERROUS SULFATE 325MG TAB PO ×2 (09:30→20:59)
[2017-08-01] MEDS: BENZTROPINE 1 MG TAB PO ×2 (09:30→20:59)
[2017-08-01] MEDS: FOLIC ACID 1 MG TAB PO (09:30)
[2017-08-01] MEDS: DIVALPROEX 250 MG TAB PO ×2 (09:30→20:59)
[2017-08-01] MEDS: OLANZapine ORAL DISINTEGRATING TAB 5MG PO ×4 (09:32→20:59)
[2017-08-01] MEDS: HALOPERIDOL 5 MG TAB PO (09:55)
[2017-08-01] MEDS ORDERED: TUBERCULIN PPD 5 UNITS/0.1 ML ID (10:00)
[2017-08-02] MEDS: CIPROFLOXACIN 500 MG TAB PO ×2 (06:01→17:40)
[2017-08-02] MEDS: HALOPERIDOL 5 MG TAB PO (09:37)
[2017-08-02] MEDS: OLANZapine ORAL DISINTEGRATING TAB 5MG PO ×4 (09:37→20:59)
[2017-08-02] MEDS: FERROUS SULFATE 325MG TAB PO ×2 (09:37→20:30)
[2017-08-02] MEDS: BENZTROPINE 1 MG TAB PO ×2 (09:37→20:30)
[2017-08-02] MEDS: DIVALPROEX 250 MG TAB PO ×2 (09:37→20:30)
[2017-08-02] MEDS: FOLIC ACID 1 MG TAB PO (09:39)
[2017-08-02] MEDS ORDERED: PPD DOCUMENTATION ENTRY MISC XX (10:00)
[2017-08-02] MEDS: PPD DOCUMENTATION ENTRY MISC XX (12:41)
[2017-08-02] MEDS: HALOPERIDOL 10 MG TAB PO (20:31)
[2017-08-02] MEDS: traZODone 50 MG TAB PO (21:23)
[2017-08-03] MEDS: CIPROFLOXACIN 500 MG TAB PO (05:59)
[2017-08-03] MEDS: DIVALPROEX 250 MG TAB PO ×2 (08:48→21:15)
[2017-08-03] MEDS: BENZTROPINE 1 MG TAB PO ×2 (08:48→21:15)
[2017-08-03] MEDS: FOLIC ACID 1 MG TAB PO (08:48)
[2017-08-03] MEDS: FERROUS SULFATE 325MG TAB PO ×2 (08:48→21:15)
[2017-08-03] MEDS: OLANZapine ORAL DISINTEGRATING TAB 5MG PO ×3 (08:48→21:27)
[2017-08-03] MEDS: HALOPERIDOL 5 MG TAB PO (08:48)
[2017-08-03] MEDS: HALOPERIDOL 10 MG TAB PO (21:15)
[2017-08-04] MEDS: FOLIC ACID 1 MG TAB PO (08:47)
[2017-08-04] MEDS: DIVALPROEX 250 MG TAB PO ×2 (08:47→21:12)
[2017-08-04] MEDS: BENZTROPINE 1 MG TAB PO ×2 (08:47→21:12)
[2017-08-04] MEDS: HALOPERIDOL 5 MG TAB PO (08:47)
[2017-08-04] MEDS: FERROUS SULFATE 325MG TAB PO ×2 (08:47→21:12)
[2017-08-04 13:03] LABS: VALPROIC ACID (DEPAKOTE) 82.5 UG/ML (50.0-100.0)
[2017-08-04] MEDS: OLANZapine ORAL DISINTEGRATING TAB 5MG PO (21:12)
[2017-08-04] MEDS: HALOPERIDOL 10 MG TAB PO (21:13)
[2017-08-04] MEDS: traZODone 50 MG TAB PO (23:30)
[2017-08-05] MEDS: BENZTROPINE 1 MG TAB PO ×2 (09:08→20:11)
[2017-08-05] MEDS: DIVALPROEX 250 MG TAB PO ×2 (09:08→20:12)
[2017-08-05] MEDS: HALOPERIDOL 5 MG TAB PO (09:08)
[2017-08-05] MEDS: FOLIC ACID 1 MG TAB PO (09:08)
[2017-08-05] MEDS: FERROUS SULFATE 325MG TAB PO ×2 (09:08→20:12)
[2017-08-05] MEDS: MAALOX 30 ML SUSP *UDC PO (19:31)
[2017-08-05] MEDS: OLANZapine ORAL DISINTEGRATING TAB 5MG PO (20:12)
[2017-08-05] MEDS: HALOPERIDOL 10 MG TAB PO (20:12)
[2017-08-06] MEDS: FOLIC ACID 1 MG TAB PO (08:55)
[2017-08-06] MEDS: FERROUS SULFATE 325MG TAB PO ×2 (08:55→21:21)
[2017-08-06] MEDS: BENZTROPINE 1 MG TAB PO ×2 (08:55→21:21)
[2017-08-06] MEDS: HALOPERIDOL 5 MG TAB PO (08:55)
[2017-08-06] MEDS: DIVALPROEX 250 MG TAB PO ×2 (08:55→21:21)
[2017-08-06] MEDS: HALOPERIDOL 10 MG TAB PO (21:21)
[2017-08-06] MEDS: OLANZapine ORAL DISINTEGRATING TAB 5MG PO (21:21)
[2017-08-07] MEDS: BENZTROPINE 1 MG TAB PO ×2 (09:58→21:23)
[2017-08-07] MEDS: HALOPERIDOL 5 MG TAB PO (09:58)
[2017-08-07] MEDS: FERROUS SULFATE 325MG TAB PO ×2 (09:59→21:23)
[2017-08-07] MEDS: FOLIC ACID 1 MG TAB PO (09:59)
[2017-08-07] MEDS: DIVALPROEX 250 MG TAB PO ×2 (09:59→21:22)
[2017-08-07] MEDS: OLANZapine ORAL DISINTEGRATING TAB 5MG PO (21:22)
[2017-08-07] MEDS: HALOPERIDOL 10 MG TAB PO (21:23)
[2017-08-07] MEDS: traZODone 50 MG TAB PO (22:04)
[2017-08-08] MEDS: ACETAMINOPHEN TAB 650MG DOSE (2X325MG) PO (02:48)
[2017-08-08] MEDS: FERROUS SULFATE 325MG TAB PO ×2 (08:56→21:12)
[2017-08-08] MEDS: BENZTROPINE 1 MG TAB PO ×2 (08:56→21:12)
[2017-08-08] MEDS: FOLIC ACID 1 MG TAB PO (08:56)
[2017-08-08] MEDS: DIVALPROEX 250 MG TAB PO ×2 (08:56→21:12)
[2017-08-08] MEDS: HALOPERIDOL 5 MG TAB PO (08:56)
[2017-08-08] MEDS: HALOPERIDOL 10 MG TAB PO (21:12)
[2017-08-08] MEDS: OLANZapine ORAL DISINTEGRATING TAB 5MG PO (21:13)
[2017-08-09] MEDS: HALOPERIDOL 10 MG TAB PO ×2 (08:48→20:27)
[2017-08-09] MEDS: DIVALPROEX 250 MG TAB PO ×2 (08:48→20:28)
[2017-08-09] MEDS: FERROUS SULFATE 325MG TAB PO ×2 (08:48→20:27)
[2017-08-09] MEDS: BENZTROPINE 1 MG TAB PO ×2 (08:48→20:27)
[2017-08-09] MEDS: FOLIC ACID 1 MG TAB PO (08:48)
[2017-08-09] MEDS: OLANZapine ORAL DISINTEGRATING TAB 5MG PO (20:27)
[2017-08-09] MEDS: traZODone 50 MG TAB PO (22:34)
[2017-08-10] MEDS: HALOPERIDOL DECANOATE 100 MG/ML VIAL (J1631) IM (09:00)
[2017-08-10] MEDS: FOLIC ACID 1 MG TAB PO (12:58)
[2017-08-10] MEDS: FERROUS SULFATE 325MG TAB PO ×2 (12:58→20:19)
[2017-08-10] MEDS: HALOPERIDOL 5 MG TAB PO ×2 (12:58→20:19)
[2017-08-10] MEDS: DIVALPROEX 250 MG TAB PO ×2 (12:58→20:19)
[2017-08-10] MEDS: BENZTROPINE 1 MG TAB PO ×2 (12:58→20:19)
[2017-08-10] MEDS: OLANZapine ORAL DISINTEGRATING TAB 5MG PO (20:19)
[2017-08-11] MEDS: BENZTROPINE 1 MG TAB PO (08:49)
[2017-08-11] MEDS: HALOPERIDOL 5 MG TAB PO (08:49)
[2017-08-11] MEDS: FERROUS SULFATE 325MG TAB PO (08:49)
[2017-08-11] MEDS: FOLIC ACID 1 MG TAB PO (08:49)
[2017-08-11] MEDS: DIVALPROEX 250 MG TAB PO (08:49)
[2017-08-11] MEDS: HALOPERIDOL DECANOATE 100 MG/ML VIAL (J1631) IM (10:59)
== END 2017-08-11 12:00 | disposition home or self-care (01) | DRG 885 ==
LOC: M PSY 08-05 17:22 → M ED 08:06 → M ED INP 13:40 → M PSY 14:15
DX: F25.0 Schizoaffective disorder, bipolar type (principal); F17.210 Nicotine dependence, cigarettes, uncomplicated; D64.9 Anemia, unspecified; E66.3 Overweight; Z68.29 Body mass index [BMI] 29.0-29.9, adult; Z79.899 Other long term (current) drug therapy; Z88.0 Allergy status to penicillin

== ENCOUNTER → 2017-08-25 | Outpatient (REF) | payer OTHER, MEDICAID ==
[2017-08-25 13:19] LABS: CONTROL LINE HCG INT CTR LINE PRESENT; HCG, SERUM QUALITATIVE NEGATIVE (NEGATIVE)
[2017-08-25 14:18] LABS: HIV 1&2 SCREEN CENTAUR NEGATIVE (NEGATIVE)
[2017-08-25 14:46] LABS: CHLAMYDIA DNA AMPLIFICATION NEGATIVE (NEGATIVE); GC DNA AMPLIFICATION NEGATIVE (NEGATIVE)
== END ==
LOC: M SFHCWAGY 11:16
DX: Z11.4 Encounter for screening for human immunodeficiency virus [HIV] (principal); Z11.3 Encounter for screening for infections with a predominantly sexual mode of transmission; N92.6 Irregular menstruation, unspecified

== ENCOUNTER 2017-09-05 14:54 | Emergency (ER) | payer OTHER, MEDICAID ==
[2017-09-05] MEDS: NS 1,000 ML IV (15:15)
[2017-09-05 15:25] LABS: BASO % 0.2 % (0.0-1.0); EOS # 0.1 10^3/uL (0.0-0.50); EOS % 2.1 % (0.0-3.0); HEMOGLOBIN 10.3 g/dl (12.0-15.5); IMMATURE GRANULOCYTE % 0.2 % (0-3.0); LYMPH # 2.7 10^3/uL (1.5-6.5); LYMPH % 50.7 % (24.0-44.0); MEAN CORPUSCULAR HEMOGLOBIN 31.1 pg (27.0-33.0); MEAN CORPUSCULAR HGB CONC 33.2 g/dl (32.0-36.5); MEAN CORPUSCULAR VOLUME 93.7 fl (80.0-96.0); MONO # 0.4 10^3/uL (0.0-0.8); MONO % 7.3 % (0.0-5.0); NEUTROPHILS # 2.1 10^3/uL (1.8-7.7); NEUTROPHILS % 39.5 % (36.0-66.0); PLATELET COUNT, AUTOMATED 159 10^3/uL (150-450); RED BLOOD COUNT 3.31 10^6/uL (4.00-5.40); RED CELL DISTRIBUTION WIDTH 14.7 % (11.5-14.5); WHITE BLOOD COUNT 5.4 10^3/uL (4.0-10.0)
[2017-09-05 16:42] LABS: AMPHETAMINES LEVEL URINE NEGATIVE (NEGATIVE); BARBITURATES URINE NEGATIVE (NEGATIVE); BENZODIAZEPINES URINE NEGATIVE (NEGATIVE); CANNABINOIDS URINE NEGATIVE (NEGATIVE); COCAINE METABOLITE URINE NEGATIVE (NEGATIVE); METHADONE URINE NEGATIVE (NEGATIVE); OPIATES URINE NEGATIVE (NEGATIVE); PHENCYCLIDINE URINE NEGATIVE (NEGATIVE)
[2017-09-05 18:11] LABS: VALPROIC ACID (DEPAKOTE) 107.4 UG/ML (50.0-100.0)
[2017-09-05 18:20] LABS: ANION GAP 7 MEQ/L (8-16); BLOOD UREA NITROGEN 19 MG/DL (7-18); CALCIUM LEVEL 8.8 MG/DL (8.5-10.1); CARBON DIOXIDE LEVEL 27 MEQ/L (21-32); CHLORIDE LEVEL 108 MEQ/L (98-107); CREATININE FOR GFR 0.69 MG/DL (0.55-1.30); GLOMERULAR FILTRATION RATE > 60.0 (>60); GLUCOSE, FASTING 89 MG/DL (70-100); POTASSIUM SERUM 4.3 MEQ/L (3.5-5.1); SODIUM LEVEL 142 MEQ/L (136-145); THYROID STIMULATING HORMONE 0.075 uIU/ML (0.358-3.740)
[2017-09-05] MEDS: NORCO, ANEXSIA 5/325MG TABLET (HYDROcodone/ACETAMINOPHEN) PO (18:40)
[2017-09-05 18:42] LABS: CONTROL LINE HCG INT CTR LINE PRESENT; HCG, SERUM QUALITATIVE NEGATIVE (NEGATIVE)
== END 2017-09-05 18:59 | disposition home or self-care (01) ==
LOC: M ED 14:54
DX: R55 Syncope and collapse (principal); F31.9 Bipolar disorder, unspecified; F25.9 Schizoaffective disorder, unspecified; R29.818 Other symptoms and signs involving the nervous system; Z88.0 Allergy status to penicillin; Z79.899 Other long term (current) drug therapy
CPT/HCPCS: 93005

== ENCOUNTER → 2017-09-08 | Outpatient (REF) | payer OTHER ==
[2017-09-08 13:07] LABS: FREE T4 1.23 NG/DL (0.76-1.46); THYROID STIMULATING HORMONE 0.082 uIU/ML (0.358-3.740)
[2017-09-08 13:47] LABS: HIV 1&2 SCREEN CENTAUR NEGATIVE (NEGATIVE)
== END ==
LOC: M LAB REF 11:50
DX: E05.80 Other thyrotoxicosis without thyrotoxic crisis or storm (principal)

== ENCOUNTER 2017-09-10 13:00 | Emergency (ER) | payer OTHER ==
[2017-09-10 13:27] LABS: BASO % 0.4 % (0.0-1.0); EOS # 0.1 10^3/uL (0.0-0.50); HEMATOCRIT 32.9 % (36.0-47.0); HEMOGLOBIN 11.1 g/dl (12.0-15.5); IMMATURE GRANULOCYTE % 0.2 % (0-3.0); LYMPH # 2.1 10^3/uL (1.5-6.5); LYMPH % 44.1 % (24.0-44.0); MEAN CORPUSCULAR HEMOGLOBIN 31.4 pg (27.0-33.0); MEAN CORPUSCULAR HGB CONC 33.7 g/dl (32.0-36.5); MEAN CORPUSCULAR VOLUME 92.9 fl (80.0-96.0); MONO # 0.4 10^3/uL (0.0-0.8); MONO % 8.2 % (0.0-5.0); NEUTROPHILS # 2.2 10^3/uL (1.8-7.7); NEUTROPHILS % 46.1 % (36.0-66.0); PLATELET COUNT, AUTOMATED 150 10^3/uL (150-450); RED BLOOD COUNT 3.54 10^6/uL (4.00-5.40); RED CELL DISTRIBUTION WIDTH 14.3 % (11.5-14.5); WHITE BLOOD COUNT 4.9 10^3/uL (4.0-10.0)
[2017-09-10 13:45] LABS: LACTIC ACID SEPSIS PROTOCOL 1.3 MMOL/L (0.4-2.0)
[2017-09-10 13:50] LABS: CONTROL LINE HCG INT CTR LINE PRESENT; HCG, SERUM QUALITATIVE NEGATIVE (NEGATIVE)
[2017-09-10 13:55] LABS: ALBUMIN 3.4 GM/DL (3.2-5.2); ALBUMIN/GLOBULIN RATIO 0.87 (1.00-1.93); ALKALINE PHOSPHATASE 38 U/L (45-117); ALT/SGPT 28 U/L (12-78); ANION GAP 8 MEQ/L (8-16); AST/SGOT 19 U/L (7-37); BILIRUBIN,DIRECT < 0.1 MG/DL (0.0-0.2); BILIRUBIN,TOTAL 0.2 MG/DL (0.2-1.0); BLOOD UREA NITROGEN 15 MG/DL (7-18); CALCIUM LEVEL 8.7 MG/DL (8.5-10.1); CARBON DIOXIDE LEVEL 26 MEQ/L (21-32); CHLORIDE LEVEL 110 MEQ/L (98-107); CPK CREATINE PHOSPHOKINASE 142 U/L (26-192); CREATININE FOR GFR 0.62 MG/DL (0.55-1.30); ETHYL ALCOHOL (ETHANOL) < 0.003 % (0.000-0.010); GLOMERULAR FILTRATION RATE > 60.0 (>60); GLUCOSE, FASTING 88 MG/DL (70-100); POTASSIUM SERUM 4.5 MEQ/L (3.5-5.1); SALICYLATE LEVEL 6.2 MG/DL (5.0-30.0); SODIUM LEVEL 144 MEQ/L (136-145); TOTAL PROTEIN 7.3 GM/DL (6.4-8.2); TROPONIN I < 0.02 NG/ML (< 0.10)
[2017-09-10 14:01] LABS: CK-MB VALUE MASS 1.3 NG/ML (<3.6); MB/CK RELATIVE INDEX 0.91 (< OR =4); THYROID STIMULATING HORMONE 0.039 uIU/ML (0.358-3.740)
[2017-09-10 14:02] LABS: ACETAMINOPHEN LEVEL < 2.0 UG/ML (10.0-30.0)
== END 2017-09-10 15:12 | disposition home or self-care (01) ==
LOC: M ED 13:00
DX: F44.4 Conversion disorder with motor symptom or deficit (principal); F90.9 Attention-deficit hyperactivity disorder, unspecified type; F17.200 Nicotine dependence, unspecified, uncomplicated; Z88.0 Allergy status to penicillin; Z79.899 Other long term (current) drug therapy
CPT/HCPCS: 70450

== ENCOUNTER 2017-09-18 11:40 | Inpatient (IN) | payer MEDICAID, OTHER ==
[2017-09-18 12:31] LABS: HEMATOCRIT 33.2 % (36.0-47.0); MEAN CORPUSCULAR HEMOGLOBIN 31.3 pg (27.0-33.0); MEAN CORPUSCULAR HGB CONC 33.1 g/dl (32.0-36.5); MEAN CORPUSCULAR VOLUME 94.6 fl (80.0-96.0); PLATELET COUNT, AUTOMATED 145 10^3/uL (150-450); RED BLOOD COUNT 3.51 10^6/uL (4.00-5.40); RED CELL DISTRIBUTION WIDTH 13.7 % (11.5-14.5); WHITE BLOOD COUNT 6.2 10^3/uL (4.0-10.0)
[2017-09-18 12:46] LABS: CONTROL LINE HCG INT CTR LINE PRESENT; HCG, SERUM QUALITATIVE NEGATIVE (NEGATIVE)
[2017-09-18 13:00] LABS: AMPHETAMINES LEVEL URINE NEGATIVE (NEGATIVE); BARBITURATES URINE NEGATIVE (NEGATIVE); BENZODIAZEPINES URINE NEGATIVE (NEGATIVE); CANNABINOIDS URINE NEGATIVE (NEGATIVE); COCAINE METABOLITE URINE NEGATIVE (NEGATIVE); METHADONE URINE NEGATIVE (NEGATIVE); OPIATES URINE NEGATIVE (NEGATIVE); PHENCYCLIDINE URINE NEGATIVE (NEGATIVE)
[2017-09-18 13:03] LABS: ALBUMIN 3.4 GM/DL (3.2-5.2); ALBUMIN/GLOBULIN RATIO 0.87 (1.00-1.93); ALKALINE PHOSPHATASE 35 U/L (45-117); ALT/SGPT 37 U/L (12-78); ANION GAP 6 MEQ/L (8-16); AST/SGOT 21 U/L (7-37); BILIRUBIN,DIRECT 0.1 MG/DL (0.0-0.2); BILIRUBIN,TOTAL 0.3 MG/DL (0.2-1.0); BLOOD UREA NITROGEN 14 MG/DL (7-18); CALCIUM LEVEL 8.9 MG/DL (8.5-10.1); CARBON DIOXIDE LEVEL 27 MEQ/L (21-32); CHLORIDE LEVEL 110 MEQ/L (98-107); CREATININE FOR GFR 0.72 MG/DL (0.55-1.30); ETHYL ALCOHOL (ETHANOL) < 0.003 % (0.000-0.010); GLOMERULAR FILTRATION RATE > 60.0 (>60); GLUCOSE, FASTING 100 MG/DL (70-100); POTASSIUM SERUM 4.1 MEQ/L (3.5-5.1); SALICYLATE LEVEL 6.3 MG/DL (5.0-30.0); SODIUM LEVEL 143 MEQ/L (136-145); THYROID STIMULATING HORMONE 0.023 uIU/ML (0.358-3.740); TOTAL PROTEIN 7.3 GM/DL (6.4-8.2); VALPROIC ACID (DEPAKOTE) 131.1 UG/ML (50.0-100.0)
[2017-09-18 13:04] LABS: ACETAMINOPHEN LEVEL < 2.0 UG/ML (10.0-30.0)
[2017-09-18] MEDS ORDERED: MAALOX 30 ML SUSP *UDC PO (20:30)
[2017-09-18] MEDS: DIVALPROEX 250 MG TAB PO (21:00)
[2017-09-18] MEDS: HALOPERIDOL 5 MG TAB PO (21:51)
[2017-09-18] MEDS: OLANZapine ORAL DISINTEGRATING TAB 5MG PO (21:51)
[2017-09-18] MEDS: BENZTROPINE 1 MG TAB PO (21:51)
[2017-09-19 08:07] LABS: VALPROIC ACID (DEPAKOTE) 61.3 UG/ML (50.0-100.0)
[2017-09-19] MEDS: FERROUS SULFATE 325MG TAB PO (09:26)
[2017-09-19] MEDS: DIVALPROEX 250 MG TAB PO ×2 (09:27→20:42)
[2017-09-19] MEDS: BENZTROPINE 1 MG TAB PO ×2 (09:27→20:42)
[2017-09-19] MEDS: FOLIC ACID 1 MG TAB PO (09:27)
[2017-09-19] MEDS: NICOTINE 21MG/24HR 1 EA TRANSDERMAL TD (09:28)
[2017-09-19] MEDS: HALOPERIDOL 5 MG TAB PO (09:30)
[2017-09-19] MEDS: ACETAMINOPHEN TAB 650MG DOSE (2X325MG) PO ×2 (09:33→20:43)
[2017-09-19 20:14] LABS: BEDSIDE GLUCOSE 108 MG/DL (70-105)
[2017-09-19] MEDS: OLANZapine ORAL DISINTEGRATING TAB 5MG PO (20:42)
[2017-09-19] MEDS: traZODone 50 MG TAB PO (20:42)
[2017-09-19] MEDS: LORazepam 2 MG TAB PO (21:18)
[2017-09-20 08:44] LABS: HEMATOCRIT 32.7 % (36.0-47.0); HEMOGLOBIN 10.9 g/dl (12.0-15.5); MEAN CORPUSCULAR HEMOGLOBIN 31.3 pg (27.0-33.0); MEAN CORPUSCULAR HGB CONC 33.3 g/dl (32.0-36.5); PLATELET COUNT, AUTOMATED 144 10^3/uL (150-450); RED BLOOD COUNT 3.48 10^6/uL (4.00-5.40); RED CELL DISTRIBUTION WIDTH 13.2 % (11.5-14.5); WHITE BLOOD COUNT 5.6 10^3/uL (4.0-10.0)
[2017-09-20 09:11] LABS: FREE THYROXINE INDEX 4.3 % (1.3-4.8); T UPTAKE 39 % (30-39); THYROID STIMULATING HORMONE 0.035 uIU/ML (0.358-3.740)
[2017-09-20] MEDS: NICOTINE 21MG/24HR 1 EA TRANSDERMAL TD (09:27)
[2017-09-20] MEDS: BENZTROPINE 1 MG TAB PO ×2 (09:28→20:04)
[2017-09-20] MEDS: OLANZapine ORAL DISINTEGRATING TAB 5MG PO ×3 (09:28→21:48)
[2017-09-20] MEDS: FOLIC ACID 1 MG TAB PO (09:28)
[2017-09-20] MEDS: FERROUS SULFATE 325MG TAB PO (09:28)
[2017-09-20] MEDS: DIVALPROEX 250 MG TAB PO ×2 (09:28→20:04)
[2017-09-20] MEDS: LORazepam 2 MG TAB PO (20:04)
[2017-09-20] MEDS: traZODone 50 MG TAB PO (20:04)
[2017-09-21] MEDS: DIVALPROEX 250 MG TAB PO ×2 (09:24→20:11)
[2017-09-21] MEDS: FERROUS SULFATE 325MG TAB PO (09:24)
[2017-09-21] MEDS: OLANZapine ORAL DISINTEGRATING TAB 5MG PO ×2 (09:24→20:12)
[2017-09-21] MEDS: BENZTROPINE 1 MG TAB PO ×2 (09:25→20:12)
[2017-09-21] MEDS: NICOTINE 21MG/24HR 1 EA TRANSDERMAL TD (09:25)
[2017-09-21] MEDS: FOLIC ACID 1 MG TAB PO (09:25)
[2017-09-22] MEDS: NICOTINE 21MG/24HR 1 EA TRANSDERMAL TD (09:00)
[2017-09-22] MEDS: FOLIC ACID 1 MG TAB PO (09:10)
[2017-09-22] MEDS: BENZTROPINE 1 MG TAB PO ×2 (09:10→21:24)
[2017-09-22] MEDS: OLANZapine ORAL DISINTEGRATING TAB 5MG PO ×3 (09:10→21:24)
[2017-09-22] MEDS: DIVALPROEX 250 MG TAB PO ×2 (09:10→21:25)
[2017-09-22] MEDS: FERROUS SULFATE 325MG TAB PO (09:10)
[2017-09-22 17:27] LABS: ALBUMIN 3.7 GM/DL (3.2-5.2); ALBUMIN/GLOBULIN RATIO 0.93 (1.00-1.93); ALKALINE PHOSPHATASE 39 U/L (45-117); ALT/SGPT 38 U/L (12-78); ANION GAP 8 MEQ/L (8-16); AST/SGOT 19 U/L (7-37); BILIRUBIN,DIRECT 0.1 MG/DL (0.0-0.2); BILIRUBIN,TOTAL 0.3 MG/DL (0.2-1.0); BLOOD UREA NITROGEN 12 MG/DL (7-18); CALCIUM LEVEL 9.4 MG/DL (8.5-10.1); CARBON DIOXIDE LEVEL 27 MEQ/L (21-32); CHLORIDE LEVEL 108 MEQ/L (98-107); CHOLESTEROL LEVEL 140 MG/DL (<200); CHOLESTEROL RISK RATIO 3.255 (<5); GLOMERULAR FILTRATION RATE > 60.0 (>60); GLUCOSE, FASTING 101 MG/DL (70-100); HDL CHOLESTEROL 43 MG/DL (>40); LDL CHOLESTEROL 81.2 MG/DL (<100); NON-HDL-C 97 MG/DL; POTASSIUM SERUM 4.5 MEQ/L (3.5-5.1); SODIUM LEVEL 143 MEQ/L (136-145); TOTAL PROTEIN 7.7 GM/DL (6.4-8.2); TRIGLYCERIDES LEVEL 79 MG/DL (<150)
[2017-09-22] MEDS: ACETAMINOPHEN TAB 650MG DOSE (2X325MG) PO (19:37)
[2017-09-23] MEDS: FERROUS SULFATE 325MG TAB PO (09:00)
[2017-09-23] MEDS: BENZTROPINE 1 MG TAB PO ×2 (09:00→20:18)
[2017-09-23] MEDS: NICOTINE 21MG/24HR 1 EA TRANSDERMAL TD (09:00)
[2017-09-23] MEDS: FOLIC ACID 1 MG TAB PO (09:00)
[2017-09-23] MEDS: DIVALPROEX 250 MG TAB PO ×2 (09:00→20:18)
[2017-09-23] MEDS: OLANZapine ORAL DISINTEGRATING TAB 5MG PO ×2 (09:00→20:18)
[2017-09-23 15:44] LABS: KETONE, URINE AUTO RFX NEGATIVE (NEGATIVE); LEUKOCYTE ESTERASE UR AUTO RFX NEGATIVE (NEGATIVE); NITRITE, URINE AUTO RFX NEGATIVE (NEGATIVE); RBC, URINE AUTO RFX 1 /HPF (0-3); SPECIFIC GRAVITY UR AUTO RFX 1.019 (1.002-1.035); SQUAM EPITHELIAL CELL UR AURFX 0 /HPF (0-6); WBC, URINE AUTO RFX 1 /HPF (0-3)
[2017-09-23] MEDS: hydrOXYzine 10 MG TAB PO (20:18)
[2017-09-24] MEDS: NICOTINE 21MG/24HR 1 EA TRANSDERMAL TD (09:00)
[2017-09-24] MEDS: FERROUS SULFATE 325MG TAB PO (09:07)
[2017-09-24] MEDS: DIVALPROEX 250 MG TAB PO ×2 (09:07→21:03)
[2017-09-24] MEDS: BENZTROPINE 1 MG TAB PO ×2 (09:07→21:02)
[2017-09-24] MEDS: OLANZapine ORAL DISINTEGRATING TAB 5MG PO ×2 (09:07→21:02)
[2017-09-24] MEDS: FOLIC ACID 1 MG TAB PO (09:07)
[2017-09-24] MEDS: GABAPENTIN 100 MG CAP PO (21:02)
[2017-09-24] MEDS: traZODone 50 MG TAB PO (21:55)
[2017-09-24] MEDS: ACETAMINOPHEN TAB 650MG DOSE (2X325MG) PO (22:53)
[2017-09-25] MEDS: DIVALPROEX 250 MG TAB PO (08:52)
[2017-09-25] MEDS: FERROUS SULFATE 325MG TAB PO (08:52)
[2017-09-25] MEDS: NICOTINE 21MG/24HR 1 EA TRANSDERMAL TD (08:52)
[2017-09-25] MEDS: FOLIC ACID 1 MG TAB PO (08:52)
[2017-09-25] MEDS: BENZTROPINE 1 MG TAB PO ×2 (08:52→19:41)
[2017-09-25] MEDS: OLANZapine ORAL DISINTEGRATING TAB 5MG PO ×2 (08:52→19:41)
[2017-09-25 10:01] LABS: HEMATOCRIT 34.8 % (36.0-47.0); HEMOGLOBIN 11.5 g/dl (12.0-15.5); MEAN CORPUSCULAR HEMOGLOBIN 31.3 pg (27.0-33.0); MEAN CORPUSCULAR VOLUME 94.6 fl (80.0-96.0); PLATELET COUNT, AUTOMATED 172 10^3/uL (150-450); RED BLOOD COUNT 3.68 10^6/uL (4.00-5.40); RED CELL DISTRIBUTION WIDTH 12.6 % (11.5-14.5); WHITE BLOOD COUNT 5.9 10^3/uL (4.0-10.0)
[2017-09-25] MEDS: hydrOXYzine 10 MG TAB PO (19:41)
[2017-09-25] MEDS: DIVALPROEX 500 MG TAB PO (19:41)
[2017-09-25] MEDS: traZODone 50 MG TAB PO (22:35)
[2017-09-25] MEDS: GABAPENTIN 100 MG CAP PO (22:35)
[2017-09-26] MEDS: OLANZapine ORAL DISINTEGRATING TAB 5MG PO ×2 (09:14→21:18)
[2017-09-26] MEDS: DIVALPROEX 500 MG TAB PO ×2 (09:14→21:18)
[2017-09-26] MEDS: FOLIC ACID 1 MG TAB PO (09:14)
[2017-09-26] MEDS: NICOTINE 21MG/24HR 1 EA TRANSDERMAL TD (09:14)
[2017-09-26] MEDS: FERROUS SULFATE 325MG TAB PO (09:14)
[2017-09-26] MEDS: BENZTROPINE 1 MG TAB PO ×2 (09:14→21:18)
[2017-09-26] MEDS: MOM 30ML SUSPENSION UDC PO (18:36)
[2017-09-26] MEDS: GABAPENTIN 100 MG CAP PO (21:18)
[2017-09-26] MEDS: traZODone 50 MG TAB PO (21:18)
[2017-09-26] MEDS: hydrOXYzine 10 MG TAB PO (22:30)
[2017-09-27] MEDS: FERROUS SULFATE 325MG TAB PO (08:40)
[2017-09-27] MEDS: NICOTINE 21MG/24HR 1 EA TRANSDERMAL TD (08:40)
[2017-09-27] MEDS: FOLIC ACID 1 MG TAB PO (08:40)
[2017-09-27] MEDS: BENZTROPINE 1 MG TAB PO ×2 (08:40→21:46)
[2017-09-27] MEDS: OLANZapine ORAL DISINTEGRATING TAB 5MG PO ×2 (08:40→21:46)
[2017-09-27] MEDS: DIVALPROEX 500 MG TAB PO ×2 (08:40→21:47)
[2017-09-27 15:04] LABS: BASO % 0.4 % (0.0-1.0); EOS # 0.1 10^3/uL (0.0-0.50); EOS % 1.6 % (0.0-3.0); HEMOGLOBIN 11.9 g/dl (12.0-15.5); IMMATURE GRANULOCYTE % 0.2 % (0-3.0); LYMPH # 2.6 10^3/uL (1.5-6.5); LYMPH % 46.9 % (24.0-44.0); MEAN CORPUSCULAR HEMOGLOBIN 31.2 pg (27.0-33.0); MEAN CORPUSCULAR VOLUME 91.9 fl (80.0-96.0); MONO # 0.6 10^3/uL (0.0-0.8); MONO % 10.2 % (0.0-5.0); NEUTROPHILS # 2.2 10^3/uL (1.8-7.7); NEUTROPHILS % 40.7 % (36.0-66.0); PLATELET COUNT, AUTOMATED 168 10^3/uL (150-450); RED BLOOD COUNT 3.81 10^6/uL (4.00-5.40); RED CELL DISTRIBUTION WIDTH 12.2 % (11.5-14.5); WHITE BLOOD COUNT 5.5 10^3/uL (4.0-10.0)
[2017-09-27 15:23] LABS: VALPROIC ACID (DEPAKOTE) 98.3 UG/ML (50.0-100.0)
[2017-09-27] MEDS: traZODone 50 MG TAB PO (21:46)
[2017-09-28] MEDS: NICOTINE 21MG/24HR 1 EA TRANSDERMAL TD (09:00)
[2017-09-28] MEDS: FERROUS SULFATE 325MG TAB PO (09:31)
[2017-09-28] MEDS: FOLIC ACID 1 MG TAB PO (09:31)
[2017-09-28] MEDS: DIVALPROEX 500 MG TAB PO (09:32)
[2017-09-28] MEDS: OLANZapine ORAL DISINTEGRATING TAB 5MG PO (09:32)
[2017-09-28] MEDS: BENZTROPINE 1 MG TAB PO (09:32)
== END 2017-09-28 11:55 | disposition home or self-care (01) | DRG 885 ==
LOC: M PSY 09-22 13:09 → M ED 11:40 → M ED INP 16:46 → M PSY 19:49
DX: F25.9 Schizoaffective disorder, unspecified (principal); F33.2 Major depressive disorder, recurrent severe without psychotic features; F41.9 Anxiety disorder, unspecified; D64.9 Anemia, unspecified; F17.210 Nicotine dependence, cigarettes, uncomplicated; Z88.0 Allergy status to penicillin; Z88.8 Allergy status to other drugs, medicaments and biological substances; Z81.8 Family history of other mental and behavioral disorders; Z62.811 Personal history of psychological abuse in childhood; Z79.899 Other long term (current) drug therapy; E66.3 Overweight; Z68.30 Body mass index [BMI] 30.0-30.9, adult

== ENCOUNTER 2017-10-01 18:10 | Inpatient (IN) | payer MEDICAID, OTHER ==
[2017-10-01 18:49] LABS: HEMATOCRIT 33.2 % (36.0-47.0); HEMOGLOBIN 10.9 g/dl (12.0-15.5); MEAN CORPUSCULAR HEMOGLOBIN 31.1 pg (27.0-33.0); MEAN CORPUSCULAR HGB CONC 32.8 g/dl (32.0-36.5); MEAN CORPUSCULAR VOLUME 94.6 fl (80.0-96.0); PLATELET COUNT, AUTOMATED 167 10^3/uL (150-450); RED BLOOD COUNT 3.51 10^6/uL (4.00-5.40); RED CELL DISTRIBUTION WIDTH 12.4 % (11.5-14.5); WHITE BLOOD COUNT 7.4 10^3/uL (4.0-10.0)
[2017-10-01 19:10] LABS: AMPHETAMINES LEVEL URINE NEGATIVE (NEGATIVE); BARBITURATES URINE NEGATIVE (NEGATIVE); BENZODIAZEPINES URINE NEGATIVE (NEGATIVE); CANNABINOIDS URINE NEGATIVE (NEGATIVE); COCAINE METABOLITE URINE NEGATIVE (NEGATIVE); METHADONE URINE NEGATIVE (NEGATIVE); OPIATES URINE NEGATIVE (NEGATIVE); PHENCYCLIDINE URINE NEGATIVE (NEGATIVE)
[2017-10-01 19:21] LABS: ALBUMIN 3.7 GM/DL (3.2-5.2); ALBUMIN/GLOBULIN RATIO 0.95 (1.00-1.93); ALKALINE PHOSPHATASE 39 U/L (45-117); ALT/SGPT 24 U/L (12-78); ANION GAP 6 MEQ/L (8-16); AST/SGOT 15 U/L (7-37); BILIRUBIN,DIRECT < 0.1 MG/DL (0.0-0.2); BILIRUBIN,TOTAL 0.2 MG/DL (0.2-1.0); BLOOD UREA NITROGEN 18 MG/DL (7-18); CALCIUM LEVEL 9.2 MG/DL (8.5-10.1); CARBON DIOXIDE LEVEL 27 MEQ/L (21-32); CHLORIDE LEVEL 110 MEQ/L (98-107); CREATININE FOR GFR 0.69 MG/DL (0.55-1.30); ETHYL ALCOHOL (ETHANOL) 0.003 % (0.000-0.010); GLOMERULAR FILTRATION RATE > 60.0 (>60); GLUCOSE, FASTING 94 MG/DL (70-100); SALICYLATE LEVEL 5.4 MG/DL (5.0-30.0); SODIUM LEVEL 143 MEQ/L (136-145); THYROID STIMULATING HORMONE 0.005 uIU/ML (0.358-3.740); TOTAL PROTEIN 7.6 GM/DL (6.4-8.2)
[2017-10-01 19:25] LABS: ACETAMINOPHEN LEVEL < 2.0 UG/ML (10.0-30.0)
[2017-10-01 19:39] LABS: VALPROIC ACID (DEPAKOTE) 79.8 UG/ML (50.0-100.0)
[2017-10-01] MEDS ORDERED: LORazepam 2 MG/ML VIAL (J2060) As Ordered (19:40)
[2017-10-01] MEDS ORDERED: AMMONIA AROMATIC INHALANT (FLOOR STOCK) As Ordered (19:41)
[2017-10-01 20:09] LABS: CONTROL LINE HCG INT CTR LINE PRESENT; HCG, SERUM QUALITATIVE NEGATIVE (NEGATIVE)
[2017-10-01 20:14] LABS: FREE T4 1.48 NG/DL (0.76-1.46)
[2017-10-01] MEDS ORDERED: MOM 30ML SUSPENSION UDC PO (22:30)
[2017-10-01] MEDS: DIVALPROEX 500 MG TAB PO (23:54)
[2017-10-01] MEDS: traZODone 50 MG TAB PO (23:54)
[2017-10-01] MEDS: OLANZapine 5 MG TAB PO (23:54)
[2017-10-02 07:26] LABS: BASO % 0.3 % (0.0-1.0); EOS # 0.2 10^3/uL (0.0-0.50); EOS % 2.7 % (0.0-3.0); HEMATOCRIT 32.3 % (36.0-47.0); HEMOGLOBIN 10.6 g/dl (12.0-15.5); IMMATURE GRANULOCYTE % 0.2 % (0-3.0); LYMPH # 3.5 10^3/uL (1.5-6.5); LYMPH % 54.6 % (24.0-44.0); MEAN CORPUSCULAR HEMOGLOBIN 30.9 pg (27.0-33.0); MEAN CORPUSCULAR HGB CONC 32.8 g/dl (32.0-36.5); MEAN CORPUSCULAR VOLUME 94.2 fl (80.0-96.0); MONO # 0.6 10^3/uL (0.0-0.8); NEUTROPHILS # 2.1 10^3/uL (1.8-7.7); NEUTROPHILS % 33.2 % (36.0-66.0); PLATELET COUNT, AUTOMATED 160 10^3/uL (150-450); RED BLOOD COUNT 3.43 10^6/uL (4.00-5.40); RED CELL DISTRIBUTION WIDTH 12.1 % (11.5-14.5); WHITE BLOOD COUNT 6.3 10^3/uL (4.0-10.0)
[2017-10-02 07:47] LABS: ALBUMIN 3.3 GM/DL (3.2-5.2); ALBUMIN/GLOBULIN RATIO 0.94 (1.00-1.93); ALKALINE PHOSPHATASE 35 U/L (45-117); ALT/SGPT 23 U/L (12-78); ANION GAP 8 MEQ/L (8-16); AST/SGOT 13 U/L (7-37); BILIRUBIN,TOTAL 0.4 MG/DL (0.2-1.0); BLOOD UREA NITROGEN 15 MG/DL (7-18); CALCIUM LEVEL 8.9 MG/DL (8.5-10.1); CARBON DIOXIDE LEVEL 28 MEQ/L (21-32); CHLORIDE LEVEL 107 MEQ/L (98-107); CREATININE FOR GFR 0.56 MG/DL (0.55-1.30); GLOMERULAR FILTRATION RATE > 60.0 (>60); GLUCOSE, FASTING 77 MG/DL (70-100); POTASSIUM SERUM 3.6 MEQ/L (3.5-5.1); SODIUM LEVEL 143 MEQ/L (136-145); TOTAL PROTEIN 6.8 GM/DL (6.4-8.2); VALPROIC ACID (DEPAKOTE) 84.5 UG/ML (50.0-100.0)
[2017-10-02] MEDS: OLANZapine 5 MG TAB PO ×3 (08:12→21:55)
[2017-10-02] MEDS: DIVALPROEX 500 MG TAB PO (08:13)
[2017-10-02] MEDS: FERROUS SULFATE 325MG TAB PO ×2 (08:13→21:55)
[2017-10-02] MEDS: FOLIC ACID 1 MG TAB PO (08:13)
[2017-10-02] MEDS: NICOTINE 21MG/24HR 1 EA TRANSDERMAL TD (08:19)
[2017-10-02] MEDS: LORazepam 1 MG TAB PO (10:05)
[2017-10-02] MEDS: DOXYCYCLINE HYCLATE 100 MG TAB PO ×2 (10:47→21:55)
[2017-10-02] MEDS: CitaloPRAM (CeleXA) 20 MG TAB PO (10:47)
[2017-10-02] MEDS: DIVALPROEX 500MG *ER* TAB PO (21:54)
[2017-10-03 07:59] LABS: KETONE, URINE AUTO RFX 1+ mg/dL (NEGATIVE); MUCUS, URINE RFX LARGE (NEGATIVE); NITRITE, URINE AUTO RFX NEGATIVE (NEGATIVE); RBC, URINE AUTO RFX 1 /HPF (0-3); SPECIFIC GRAVITY UR AUTO RFX 1.029 (1.002-1.035); SQUAM EPITHELIAL CELL UR AURFX 2 /HPF (0-6); TRANSITIONAL EPITHELIAL AU RFX 1 /HPF; WBC, URINE AUTO RFX 5 /HPF (0-3)
[2017-10-03 08:06] LABS: LEUKOCYTE ESTERASE UR AUTO RFX TRACE (NEGATIVE)
[2017-10-03 08:09] LABS: HEMATOCRIT 34.1 % (36.0-47.0); HEMOGLOBIN 11.5 g/dl (12.0-15.5); MEAN CORPUSCULAR HEMOGLOBIN 31.3 pg (27.0-33.0); MEAN CORPUSCULAR HGB CONC 33.7 g/dl (32.0-36.5); MEAN CORPUSCULAR VOLUME 92.9 fl (80.0-96.0); PLATELET COUNT, AUTOMATED 169 10^3/uL (150-450); RED BLOOD COUNT 3.67 10^6/uL (4.00-5.40); WHITE BLOOD COUNT 4.7 10^3/uL (4.0-10.0)
[2017-10-03 08:35] LABS: ALBUMIN 3.4 GM/DL (3.2-5.2); ALBUMIN/GLOBULIN RATIO 0.83 (1.00-1.93); ALKALINE PHOSPHATASE 36 U/L (45-117); ALT/SGPT 31 U/L (12-78); ANION GAP 7 MEQ/L (8-16); AST/SGOT 23 U/L (7-37); BILIRUBIN,TOTAL 0.4 MG/DL (0.2-1.0); BLOOD UREA NITROGEN 13 MG/DL (7-18); CALCIUM LEVEL 8.9 MG/DL (8.5-10.1); CARBON DIOXIDE LEVEL 27 MEQ/L (21-32); CHLORIDE LEVEL 107 MEQ/L (98-107); CREATININE FOR GFR 0.52 MG/DL (0.55-1.30); GLOMERULAR FILTRATION RATE > 60.0 (>60); GLUCOSE, FASTING 77 MG/DL (70-100); POTASSIUM SERUM 3.8 MEQ/L (3.5-5.1); SODIUM LEVEL 141 MEQ/L (136-145); TOTAL PROTEIN 7.5 GM/DL (6.4-8.2)
[2017-10-03] MEDS: NICOTINE 21MG/24HR 1 EA TRANSDERMAL TD (09:00)
[2017-10-03] MEDS: FOLIC ACID 1 MG TAB PO (09:20)
[2017-10-03] MEDS: OLANZapine 5 MG TAB PO ×4 (09:20→20:06)
[2017-10-03] MEDS: FERROUS SULFATE 325MG TAB PO ×2 (09:20→20:06)
[2017-10-03] MEDS: DOXYCYCLINE HYCLATE 100 MG TAB PO ×2 (09:20→20:06)
[2017-10-03] MEDS: CitaloPRAM (CeleXA) 20 MG TAB PO (09:20)
[2017-10-03] MEDS: DIVALPROEX 250MG *ER* TAB PO (09:20)
[2017-10-03] MEDS: ACETAMINOPHEN TAB 650MG DOSE (2X325MG) PO (09:29)
[2017-10-03 11:32] LABS: BASO % 0.2 % (0.0-1.0); EOS # 0.1 10^3/uL (0.0-0.50); EOS % 1.5 % (0.0-3.0); HEMATOCRIT 33.9 % (36.0-47.0); HEMOGLOBIN 11.6 g/dl (12.0-15.5); IMMATURE GRANULOCYTE % 0.2 % (0-3.0); LYMPH % 38.1 % (24.0-44.0); MEAN CORPUSCULAR HEMOGLOBIN 31.4 pg (27.0-33.0); MEAN CORPUSCULAR HGB CONC 34.2 g/dl (32.0-36.5); MEAN CORPUSCULAR VOLUME 91.6 fl (80.0-96.0); MONO # 0.4 10^3/uL (0.0-0.8); MONO % 8.2 % (0.0-5.0); NEUTROPHILS # 2.7 10^3/uL (1.8-7.7); NEUTROPHILS % 51.8 % (36.0-66.0); PLATELET COUNT, AUTOMATED 178 10^3/uL (150-450); RED CELL DISTRIBUTION WIDTH 11.9 % (11.5-14.5); WHITE BLOOD COUNT 5.2 10^3/uL (4.0-10.0)
[2017-10-03 12:08] LABS: VALPROIC ACID (DEPAKOTE) 91.7 UG/ML (50.0-100.0)
[2017-10-03] MEDS: diphenhydrAMINE 50 MG CAP PO (18:37)
[2017-10-03] MEDS: traZODone 50 MG TAB PO (20:06)
[2017-10-03] MEDS: DIVALPROEX 500MG *ER* TAB PO (20:07)
[2017-10-04] MEDS: NICOTINE 21MG/24HR 1 EA TRANSDERMAL TD (09:00)
[2017-10-04] MEDS: FERROUS SULFATE 325MG TAB PO ×2 (09:24→21:19)
[2017-10-04] MEDS: DOXYCYCLINE HYCLATE 100 MG TAB PO ×2 (09:24→21:19)
[2017-10-04] MEDS: DIVALPROEX 250MG *ER* TAB PO (09:25)
[2017-10-04] MEDS: FOLIC ACID 1 MG TAB PO (09:25)
[2017-10-04] MEDS: CitaloPRAM (CeleXA) 20 MG TAB PO (09:25)
[2017-10-04] MEDS: OLANZapine 5 MG TAB PO ×2 (09:25→21:19)
[2017-10-04] MEDS: DIVALPROEX 500MG *ER* TAB PO (21:19)
[2017-10-04] MEDS: diphenhydrAMINE 50 MG CAP PO (21:19)
[2017-10-04] MEDS: traZODone 50 MG TAB PO (21:19)
[2017-10-04] MEDS: GABAPENTIN 100 MG CAP PO (21:19)
[2017-10-05] MEDS: DOXYCYCLINE HYCLATE 100 MG TAB PO ×2 (08:49→21:59)
[2017-10-05] MEDS: FERROUS SULFATE 325MG TAB PO ×2 (08:49→21:58)
[2017-10-05] MEDS: OLANZapine 5 MG TAB PO ×3 (08:49→21:58)
[2017-10-05] MEDS: FOLIC ACID 1 MG TAB PO (08:49)
[2017-10-05] MEDS: DIVALPROEX 250MG *ER* TAB PO (08:49)
[2017-10-05] MEDS: SERTRALINE HCL 50 MG TAB PO (08:49)
[2017-10-05] MEDS: NICOTINE 21MG/24HR 1 EA TRANSDERMAL TD (08:50)
[2017-10-05] MEDS: diphenhydrAMINE 50 MG CAP PO (17:17)
[2017-10-05] MEDS: DIVALPROEX 500MG *ER* TAB PO (21:58)
[2017-10-05] MEDS: traZODone 50 MG TAB PO (21:59)
[2017-10-05] MEDS: GABAPENTIN 100 MG CAP PO (21:59)
[2017-10-06] MEDS: NICOTINE 21MG/24HR 1 EA TRANSDERMAL TD (09:00)
[2017-10-06] MEDS: SERTRALINE HCL 50 MG TAB PO (09:17)
[2017-10-06] MEDS: DIVALPROEX 250MG *ER* TAB PO (09:17)
[2017-10-06] MEDS: DOXYCYCLINE HYCLATE 100 MG TAB PO ×2 (09:17→20:50)
[2017-10-06] MEDS: FERROUS SULFATE 325MG TAB PO ×2 (09:17→20:51)
[2017-10-06] MEDS: FOLIC ACID 1 MG TAB PO (09:17)
[2017-10-06] MEDS: OLANZapine 5 MG TAB PO (09:17)
[2017-10-06] MEDS: diphenhydrAMINE 50 MG CAP PO (10:09)
[2017-10-06] MEDS: LORazepam 2 MG TAB PO (11:16)
[2017-10-06] MEDS: QUEtiapine FUMARATE 100 MG TAB PO (11:16)
[2017-10-06] MEDS: DIVALPROEX 500MG *ER* TAB PO (20:50)
[2017-10-06] MEDS: QUEtiapine FUMARATE 200 MG TAB PO (20:51)
[2017-10-07] MEDS: QUEtiapine FUMARATE 100 MG TAB PO (08:55)
[2017-10-07] MEDS: DOXYCYCLINE HYCLATE 100 MG TAB PO ×2 (08:55→20:13)
[2017-10-07] MEDS: SERTRALINE HCL 50 MG TAB PO (08:56)
[2017-10-07] MEDS: DIVALPROEX 250MG *ER* TAB PO (08:56)
[2017-10-07] MEDS: FERROUS SULFATE 325MG TAB PO ×2 (08:56→20:13)
[2017-10-07] MEDS: FOLIC ACID 1 MG TAB PO (08:56)
[2017-10-07] MEDS: NICOTINE 21MG/24HR 1 EA TRANSDERMAL TD (08:57)
[2017-10-07] MEDS: diphenhydrAMINE 50 MG CAP PO (20:12)
[2017-10-07] MEDS: DIVALPROEX 500MG *ER* TAB PO (20:13)
[2017-10-07] MEDS: QUEtiapine FUMARATE 200 MG TAB PO (20:13)
[2017-10-08] MEDS: SERTRALINE HCL 50 MG TAB PO (08:47)
[2017-10-08] MEDS: DIVALPROEX 250MG *ER* TAB PO (08:47)
[2017-10-08] MEDS: QUEtiapine FUMARATE 100 MG TAB PO (08:47)
[2017-10-08] MEDS: DOXYCYCLINE HYCLATE 100 MG TAB PO ×2 (08:47→20:18)
[2017-10-08] MEDS: FERROUS SULFATE 325MG TAB PO ×2 (08:47→20:18)
[2017-10-08] MEDS: FOLIC ACID 1 MG TAB PO (08:47)
[2017-10-08] MEDS: NICOTINE 21MG/24HR 1 EA TRANSDERMAL TD (08:49)
[2017-10-08] MEDS: DIVALPROEX 500MG *ER* TAB PO (20:18)
[2017-10-08] MEDS: QUEtiapine FUMARATE 200 MG TAB PO (20:18)
[2017-10-08] MEDS: traZODone 50 MG TAB PO (20:19)
[2017-10-08] MEDS: diphenhydrAMINE 50 MG CAP PO (21:44)
[2017-10-09] MEDS: NICOTINE 21MG/24HR 1 EA TRANSDERMAL TD (09:00)
[2017-10-09] MEDS: FERROUS SULFATE 325MG TAB PO ×2 (09:01→21:07)
[2017-10-09] MEDS: SERTRALINE HCL 50 MG TAB PO (09:01)
[2017-10-09] MEDS: DIVALPROEX 250MG *ER* TAB PO (09:01)
[2017-10-09] MEDS: FOLIC ACID 1 MG TAB PO (09:01)
[2017-10-09] MEDS: DOXYCYCLINE HYCLATE 100 MG TAB PO ×2 (09:02→21:06)
[2017-10-09] MEDS: QUEtiapine FUMARATE 100 MG TAB PO (09:02)
[2017-10-09] MEDS: HALOPERIDOL DECANOATE 100 MG/ML VIAL (J1631) IM (09:10)
[2017-10-09] MEDS: diphenhydrAMINE 50 MG CAP PO ×2 (18:23→21:07)
[2017-10-09] MEDS: MAALOX 30 ML SUSP *UDC PO (18:46)
[2017-10-09] MEDS: DIVALPROEX 500MG *ER* TAB PO (21:07)
[2017-10-09] MEDS: QUEtiapine FUMARATE 200 MG TAB PO (21:07)
[2017-10-09] MEDS: traZODone 50 MG TAB PO (21:07)
[2017-10-10] MEDS: DIVALPROEX 250MG *ER* TAB PO (08:15)
[2017-10-10] MEDS: FOLIC ACID 1 MG TAB PO (08:15)
[2017-10-10] MEDS: QUEtiapine FUMARATE 100 MG TAB PO (08:15)
[2017-10-10] MEDS: NICOTINE 21MG/24HR 1 EA TRANSDERMAL TD (08:15)
[2017-10-10] MEDS: DOXYCYCLINE HYCLATE 100 MG TAB PO ×2 (08:16→21:01)
[2017-10-10] MEDS: FERROUS SULFATE 325MG TAB PO ×2 (08:16→21:01)
[2017-10-10] MEDS: SERTRALINE HCL 50 MG TAB PO (08:16)
[2017-10-10] MEDS: PREPARATION H OINTMENT (HEMORRHOID) PR (09:49)
[2017-10-10] MEDS: ACETAMINOPHEN TAB 650MG DOSE (2X325MG) PO (14:18)
[2017-10-10] MEDS: MAALOX 30 ML SUSP *UDC PO (14:43)
[2017-10-10] MEDS: DIVALPROEX 500MG *ER* TAB PO (21:01)
[2017-10-10] MEDS: QUEtiapine FUMARATE 200 MG TAB PO (21:01)
[2017-10-10] MEDS: diphenhydrAMINE 50 MG CAP PO (21:13)
[2017-10-10] MEDS: GABAPENTIN 100 MG CAP PO (21:13)
[2017-10-10] MEDS: traZODone 50 MG TAB PO (21:13)
[2017-10-11] MEDS: NICOTINE 21MG/24HR 1 EA TRANSDERMAL TD (09:00)
[2017-10-11] MEDS: FOLIC ACID 1 MG TAB PO (09:27)
[2017-10-11] MEDS: DOXYCYCLINE HYCLATE 100 MG TAB PO ×2 (09:27→21:17)
[2017-10-11] MEDS: FERROUS SULFATE 325MG TAB PO ×2 (09:27→21:17)
[2017-10-11] MEDS: SERTRALINE HCL 50 MG TAB PO (09:27)
[2017-10-11] MEDS: OLANZapine ORAL DISINTEGRATING TAB 5MG PO (09:27)
[2017-10-11] MEDS: DIVALPROEX 250MG *ER* TAB PO (09:28)
[2017-10-11] MEDS: diphenhydrAMINE 50 MG CAP PO (10:10)
[2017-10-11 13:56] LABS: BASO % 0.3 % (0.0-1.0); EOS # 0.1 10^3/uL (0.0-0.50); EOS % 1.2 % (0.0-3.0); HEMATOCRIT 30.6 % (36.0-47.0); HEMOGLOBIN 10.3 g/dl (12.0-15.5); IMMATURE GRANULOCYTE % 0.3 % (0-3.0); LYMPH # 2.7 10^3/uL (1.5-6.5); MEAN CORPUSCULAR HEMOGLOBIN 31.3 pg (27.0-33.0); MEAN CORPUSCULAR HGB CONC 33.7 g/dl (32.0-36.5); MONO # 0.5 10^3/uL (0.0-0.8); MONO % 7.7 % (0.0-5.0); NEUTROPHILS # 2.7 10^3/uL (1.8-7.7); NEUTROPHILS % 45.5 % (36.0-66.0); PLATELET COUNT, AUTOMATED 157 10^3/uL (150-450); RED BLOOD COUNT 3.29 10^6/uL (4.00-5.40)
[2017-10-11] MEDS: DIVALPROEX 500MG *ER* TAB PO (21:17)
[2017-10-11] MEDS: QUEtiapine FUMARATE 200 MG TAB PO (21:17)
[2017-10-12] MEDS: DIVALPROEX 250MG *ER* TAB PO (08:45)
[2017-10-12] MEDS: FERROUS SULFATE 325MG TAB PO ×2 (08:45→21:19)
[2017-10-12] MEDS: FOLIC ACID 1 MG TAB PO (08:45)
[2017-10-12] MEDS: SERTRALINE HCL 50 MG TAB PO (08:45)
[2017-10-12] MEDS: cloZAPine 25 MG TAB (S0136) PO (08:45)
[2017-10-12] MEDS: diphenhydrAMINE 50 MG CAP PO ×2 (08:46→14:18)
[2017-10-12] MEDS: NICOTINE 21MG/24HR 1 EA TRANSDERMAL TD (08:48)
[2017-10-12] MEDS: DIVALPROEX 500MG *ER* TAB PO (21:19)
[2017-10-12] MEDS: QUEtiapine FUMARATE 200 MG TAB PO (21:19)
[2017-10-13] MEDS: FERROUS SULFATE 325MG TAB PO ×2 (08:58→20:40)
[2017-10-13] MEDS: SERTRALINE HCL 50 MG TAB PO (08:58)
[2017-10-13] MEDS: NICOTINE 21MG/24HR 1 EA TRANSDERMAL TD (08:58)
[2017-10-13] MEDS: DIVALPROEX 250MG *ER* TAB PO (08:58)
[2017-10-13] MEDS: FOLIC ACID 1 MG TAB PO (08:58)
[2017-10-13] MEDS: cloZAPine 25 MG TAB (S0136) PO (10:25)
[2017-10-13 12:15] LABS: HEMATOCRIT 33.1 % (36.0-47.0); MEAN CORPUSCULAR HEMOGLOBIN 30.8 pg (27.0-33.0); MEAN CORPUSCULAR HGB CONC 33.2 g/dl (32.0-36.5); MEAN CORPUSCULAR VOLUME 92.7 fl (80.0-96.0); PLATELET COUNT, AUTOMATED 151 10^3/uL (150-450); RED BLOOD COUNT 3.57 10^6/uL (4.00-5.40); RED CELL DISTRIBUTION WIDTH 12.1 % (11.5-14.5); WHITE BLOOD COUNT 5.2 10^3/uL (4.0-10.0)
[2017-10-13 13:42] LABS: ALKALINE PHOSPHATASE 34 U/L (45-117); ALT/SGPT 27 U/L (12-78); ANION GAP 7 MEQ/L (8-16); AST/SGOT 14 U/L (7-37); BILIRUBIN,TOTAL 0.2 MG/DL (0.2-1.0); BLOOD UREA NITROGEN 15 MG/DL (7-18); CARBON DIOXIDE LEVEL 27 MEQ/L (21-32); CHLORIDE LEVEL 108 MEQ/L (98-107); CREATININE FOR GFR 0.73 MG/DL (0.55-1.30); GLOMERULAR FILTRATION RATE > 60.0 (>60); GLUCOSE, FASTING 109 MG/DL (70-100); POTASSIUM SERUM 4.2 MEQ/L (3.5-5.1); SODIUM LEVEL 142 MEQ/L (136-145)
[2017-10-13 13:43] LABS: ALBUMIN 3.5 GM/DL (3.2-5.2); ALBUMIN/GLOBULIN RATIO 0.95 (1.00-1.93); FREE THYROXINE INDEX 4.7 % (1.3-4.8); T UPTAKE 37 % (30-39); THYROID STIMULATING HORMONE < 0.005 uIU/ML (0.358-3.740); THYROXINE (T4) 12.7 UG/DL (4.5-12.0); TOTAL PROTEIN 7.2 GM/DL (6.4-8.2)
[2017-10-13] MEDS: diphenhydrAMINE 50 MG CAP PO (15:09)
[2017-10-13] MEDS: DIVALPROEX 500MG *ER* TAB PO (20:40)
[2017-10-13] MEDS: QUEtiapine FUMARATE 200 MG TAB PO (20:40)
[2017-10-13] MEDS: traZODone 50 MG TAB PO (20:40)
[2017-10-14 07:27] LABS: VALPROIC ACID (DEPAKOTE) 104.2 UG/ML (50.0-100.0)
[2017-10-14] MEDS: NICOTINE 21MG/24HR 1 EA TRANSDERMAL TD (09:00)
[2017-10-14] MEDS: FERROUS SULFATE 325MG TAB PO ×2 (09:07→20:45)
[2017-10-14] MEDS: FOLIC ACID 1 MG TAB PO (09:07)
[2017-10-14] MEDS: SERTRALINE HCL 50 MG TAB PO (09:08)
[2017-10-14] MEDS: cloZAPine 25 MG TAB (S0136) PO (09:08)
[2017-10-14] MEDS: DIVALPROEX 250MG *ER* TAB PO (09:08)
[2017-10-14] MEDS: diphenhydrAMINE 50 MG CAP PO (16:25)
[2017-10-14] MEDS: DIVALPROEX 500MG *ER* TAB PO (20:44)
[2017-10-14] MEDS: QUEtiapine FUMARATE 200 MG TAB PO (20:44)
[2017-10-14] MEDS: traZODone 50 MG TAB PO (20:45)
[2017-10-15] MEDS: NICOTINE 21MG/24HR 1 EA TRANSDERMAL TD (09:00)
[2017-10-15] MEDS: FOLIC ACID 1 MG TAB PO (09:00)
[2017-10-15] MEDS: SERTRALINE HCL 50 MG TAB PO (09:01)
[2017-10-15] MEDS: cloZAPine 25 MG TAB (S0136) PO (09:01)
[2017-10-15] MEDS: DIVALPROEX 250MG *ER* TAB PO (09:01)
[2017-10-15] MEDS: FERROUS SULFATE 325MG TAB PO ×2 (09:01→20:01)
[2017-10-15] MEDS: diphenhydrAMINE 50 MG CAP PO (18:37)
[2017-10-15] MEDS: DIVALPROEX 500MG *ER* TAB PO (20:01)
[2017-10-15] MEDS: QUEtiapine FUMARATE 200 MG TAB PO (21:08)
[2017-10-15] MEDS: traZODone 50 MG TAB PO (21:31)
[2017-10-16] MEDS: SERTRALINE HCL 50 MG TAB PO (08:59)
[2017-10-16] MEDS: DIVALPROEX 250MG *ER* TAB PO (08:59)
[2017-10-16] MEDS: FERROUS SULFATE 325MG TAB PO ×2 (08:59→21:29)
[2017-10-16] MEDS: NICOTINE 21MG/24HR 1 EA TRANSDERMAL TD (09:00)
[2017-10-16] MEDS: cloZAPine 25 MG TAB (S0136) PO ×2 (09:00→21:29)
[2017-10-16] MEDS: FOLIC ACID 1 MG TAB PO (09:00)
[2017-10-16] MEDS: DIVALPROEX 500MG *ER* TAB PO (21:28)
[2017-10-16] MEDS: QUEtiapine FUMARATE 50 MG TAB PO (21:29)
[2017-10-16] MEDS: traZODone 50 MG TAB PO (22:03)
[2017-10-17] MEDS: SERTRALINE HCL 50 MG TAB PO (08:51)
[2017-10-17] MEDS: DIVALPROEX 250MG *ER* TAB PO (08:51)
[2017-10-17] MEDS: FERROUS SULFATE 325MG TAB PO ×2 (08:52→20:36)
[2017-10-17] MEDS: cloZAPine 25 MG TAB (S0136) PO ×2 (08:52→20:36)
[2017-10-17] MEDS: FOLIC ACID 1 MG TAB PO (08:52)
[2017-10-17] MEDS: NICOTINE 21MG/24HR 1 EA TRANSDERMAL TD (08:52)
[2017-10-17] MEDS: MAALOX 30 ML SUSP *UDC PO (19:27)
[2017-10-17] MEDS: traZODone 50 MG TAB PO (20:35)
[2017-10-17] MEDS: DIVALPROEX 500MG *ER* TAB PO (20:35)
[2017-10-17] MEDS: QUEtiapine FUMARATE 100 MG TAB PO (20:36)
[2017-10-18] MEDS: NICOTINE 21MG/24HR 1 EA TRANSDERMAL TD (09:00)
[2017-10-18] MEDS: FERROUS SULFATE 325MG TAB PO ×2 (09:20→21:16)
[2017-10-18] MEDS: SERTRALINE HCL 50 MG TAB PO (09:21)
[2017-10-18] MEDS: cloZAPine 25 MG TAB (S0136) PO ×2 (09:21→21:16)
[2017-10-18] MEDS: FOLIC ACID 1 MG TAB PO (09:21)
[2017-10-18] MEDS: DIVALPROEX 250MG *ER* TAB PO (09:22)
[2017-10-18 13:30] LABS: CONTROL LINE HCG INT CTR LINE PRESENT; HCG, SERUM QUALITATIVE NEGATIVE (NEGATIVE)
[2017-10-18 13:43] LABS: THYROGLOBULIN ANTIBODY 44.1 U/ML (<60.0)
[2017-10-18 13:49] LABS: FREE T3 2.9 PG/ML (2.2-4.0)
[2017-10-18 13:49] LABS: FREE T4 1.32 NG/DL (0.76-1.46)
[2017-10-18 16:06] LABS: BASO % 0.4 % (0.0-1.0); EOS # 0.2 10^3/uL (0.0-0.50); EOS % 4.4 % (0.0-3.0); HEMATOCRIT 33.4 % (36.0-47.0); HEMOGLOBIN 11.1 g/dl (12.0-15.5); IMMATURE GRANULOCYTE % 0.4 % (0-3.0); LYMPH % 38.9 % (24.0-44.0); MEAN CORPUSCULAR HEMOGLOBIN 31.3 pg (27.0-33.0); MEAN CORPUSCULAR HGB CONC 33.2 g/dl (32.0-36.5); MEAN CORPUSCULAR VOLUME 94.1 fl (80.0-96.0); MONO # 0.8 10^3/uL (0.0-0.8); MONO % 14.3 % (0.0-5.0); NEUTROPHILS # 2.2 10^3/uL (1.8-7.7); NEUTROPHILS % 41.6 % (36.0-66.0); PLATELET COUNT, AUTOMATED 137 10^3/uL (150-450); RED BLOOD COUNT 3.55 10^6/uL (4.00-5.40); RED CELL DISTRIBUTION WIDTH 11.8 % (11.5-14.5); WHITE BLOOD COUNT 5.3 10^3/uL (4.0-10.0)
[2017-10-18] MEDS: DIVALPROEX 500MG *ER* TAB PO (21:16)
[2017-10-18] MEDS: QUEtiapine FUMARATE 50 MG TAB PO (21:16)
[2017-10-18] MEDS: traZODone 50 MG TAB PO (21:17)
[2017-10-19] MEDS: DIVALPROEX 250MG *ER* TAB PO (09:00)
[2017-10-19] MEDS: cloZAPine 25 MG TAB (S0136) PO ×2 (11:31→21:08)
[2017-10-19] MEDS: FERROUS SULFATE 325MG TAB PO ×2 (11:31→21:08)
[2017-10-19] MEDS: SERTRALINE HCL 50 MG TAB PO (11:32)
[2017-10-19] MEDS: FOLIC ACID 1 MG TAB PO (11:32)
[2017-10-19] MEDS: NICOTINE 21MG/24HR 1 EA TRANSDERMAL TD (11:33)
[2017-10-19] MEDS: DIVALPROEX 500MG *ER* TAB PO (21:07)
[2017-10-19] MEDS: traZODone 50 MG TAB PO (21:08)
[2017-10-20 08:13] LABS: TSH RECEPTOR ASSAY <0.50 IU/L (0.00-1.75)
[2017-10-20] MEDS: cloZAPine 25 MG TAB (S0136) PO (08:59)
[2017-10-20] MEDS: FOLIC ACID 1 MG TAB PO (08:59)
[2017-10-20] MEDS: DIVALPROEX 250MG *ER* TAB PO (08:59)
[2017-10-20] MEDS: SERTRALINE HCL 50 MG TAB PO (08:59)
[2017-10-20] MEDS: FERROUS SULFATE 325MG TAB PO ×2 (08:59→21:42)
[2017-10-20] MEDS: NICOTINE 21MG/24HR 1 EA TRANSDERMAL TD (09:00)
[2017-10-20] MEDS: DIVALPROEX 500MG *ER* TAB PO (21:42)
[2017-10-20] MEDS: cloZAPine 100 MG TAB (S0136) PO (21:42)
[2017-10-21] MEDS: FERROUS SULFATE 325MG TAB PO ×2 (08:44→21:14)
[2017-10-21] MEDS: SERTRALINE HCL 50 MG TAB PO (08:44)
[2017-10-21] MEDS: FOLIC ACID 1 MG TAB PO (08:44)
[2017-10-21] MEDS: DIVALPROEX 250MG *ER* TAB PO (08:44)
[2017-10-21] MEDS: NICOTINE 21MG/24HR 1 EA TRANSDERMAL TD (08:45)
[2017-10-21] MEDS: cloZAPine 100 MG TAB (S0136) PO (21:15)
[2017-10-21] MEDS: DIVALPROEX 500MG *ER* TAB PO (21:15)
[2017-10-21] MEDS: traZODone 50 MG TAB PO (21:16)
[2017-10-22] MEDS: DIVALPROEX 250MG *ER* TAB PO (08:51)
[2017-10-22] MEDS: SERTRALINE HCL 50 MG TAB PO (08:51)
[2017-10-22] MEDS: FOLIC ACID 1 MG TAB PO (08:51)
[2017-10-22] MEDS: FERROUS SULFATE 325MG TAB PO ×2 (08:51→20:50)
[2017-10-22] MEDS: NICOTINE 21MG/24HR 1 EA TRANSDERMAL TD (08:52)
[2017-10-22] MEDS: cloZAPine 100 MG TAB (S0136) PO (20:50)
[2017-10-22] MEDS: DIVALPROEX 500MG *ER* TAB PO (20:51)
[2017-10-22] MEDS: traZODone 50 MG TAB PO (21:15)
[2017-10-23] MEDS: NICOTINE 21MG/24HR 1 EA TRANSDERMAL TD (09:00)
[2017-10-23 09:19] LABS: VALPROIC ACID (DEPAKOTE) 94.3 UG/ML (50.0-100.0)
[2017-10-23] MEDS: FOLIC ACID 1 MG TAB PO (09:34)
[2017-10-23] MEDS: SERTRALINE HCL 50 MG TAB PO (09:34)
[2017-10-23] MEDS: DIVALPROEX 250MG *ER* TAB PO (09:34)
[2017-10-23] MEDS: FERROUS SULFATE 325MG TAB PO ×2 (09:34→20:17)
[2017-10-23] MEDS: DIVALPROEX 500MG *ER* TAB PO (20:17)
[2017-10-23] MEDS: cloZAPine 100 MG TAB (S0136) PO (20:17)
[2017-10-24] MEDS: NICOTINE 21MG/24HR 1 EA TRANSDERMAL TD (09:00)
[2017-10-24] MEDS: FOLIC ACID 1 MG TAB PO (10:11)
[2017-10-24] MEDS: DIVALPROEX 250MG *ER* TAB PO (10:12)
[2017-10-24] MEDS: SERTRALINE 100 MG TAB PO (10:12)
[2017-10-24] MEDS: FERROUS SULFATE 325MG TAB PO ×2 (10:12→21:10)
[2017-10-24] MEDS: cloZAPine 100 MG TAB (S0136) PO (21:10)
[2017-10-24] MEDS: DIVALPROEX 500MG *ER* TAB PO (21:10)
[2017-10-25 00:07] LABS: CLOZAPINE 1 98 ng/mL (350-650); CLOZAPINE 2 None Detected (Not Estab.)
[2017-10-25] MEDS: FERROUS SULFATE 325MG TAB PO ×2 (08:27→20:52)
[2017-10-25] MEDS: SERTRALINE 100 MG TAB PO (08:27)
[2017-10-25] MEDS: DIVALPROEX 250MG *ER* TAB PO (08:27)
[2017-10-25] MEDS: FOLIC ACID 1 MG TAB PO (08:27)
[2017-10-25] MEDS: NICOTINE 21MG/24HR 1 EA TRANSDERMAL TD (08:28)
[2017-10-25 16:42] LABS: BASO % 0.4 % (0.0-1.0); EOS # 0.1 10^3/uL (0.0-0.50); EOS % 1.6 % (0.0-3.0); HEMATOCRIT 31.7 % (36.0-47.0); HEMOGLOBIN 10.6 g/dl (12.0-15.5); IMMATURE GRANULOCYTE % 0.5 % (0-3.0); LYMPH # 2.2 10^3/uL (1.5-6.5); LYMPH % 38.8 % (24.0-44.0); MEAN CORPUSCULAR HEMOGLOBIN 31.1 pg (27.0-33.0); MEAN CORPUSCULAR HGB CONC 33.4 g/dl (32.0-36.5); MONO # 0.7 10^3/uL (0.0-0.8); MONO % 12.1 % (0.0-5.0); NEUTROPHILS # 2.6 10^3/uL (1.8-7.7); NEUTROPHILS % 46.6 % (36.0-66.0); PLATELET COUNT, AUTOMATED 198 10^3/uL (150-450); RED BLOOD COUNT 3.41 10^6/uL (4.00-5.40); RED CELL DISTRIBUTION WIDTH 12.1 % (11.5-14.5); WHITE BLOOD COUNT 5.6 10^3/uL (4.0-10.0)
[2017-10-25] MEDS: DIVALPROEX 500MG *ER* TAB PO (20:52)
[2017-10-25] MEDS: cloZAPine 100 MG TAB (S0136) PO (20:52)
[2017-10-25] MEDS: diphenhydrAMINE 50 MG CAP PO (21:10)
[2017-10-25] MEDS: traZODone 50 MG TAB PO (21:43)
[2017-10-26 07:43] LABS: VALPROIC ACID (DEPAKOTE) 102.2 UG/ML (50.0-100.0)
[2017-10-26] MEDS: FERROUS SULFATE 325MG TAB PO (08:54)
[2017-10-26] MEDS: FOLIC ACID 1 MG TAB PO (08:54)
[2017-10-26] MEDS: SERTRALINE 100 MG TAB PO (08:54)
[2017-10-26] MEDS: DIVALPROEX 250MG *ER* TAB PO (08:54)
[2017-10-26] MEDS: NICOTINE 21MG/24HR 1 EA TRANSDERMAL TD (08:55)
== END 2017-10-26 13:15 | disposition home or self-care (01) | DRG 885 ==
LOC: M PSY 10-08 22:34 → M ED 18:10 → M ED INP 22:21 → M PSY 23:35
DX: F25.1 Schizoaffective disorder, depressive type (principal); F41.9 Anxiety disorder, unspecified; D64.9 Anemia, unspecified; F11.10 Opioid abuse, uncomplicated; L73.2 Hidradenitis suppurativa; R42 Dizziness and giddiness; R94.6 Abnormal results of thyroid function studies; Z62.811 Personal history of psychological abuse in childhood; Z88.0 Allergy status to penicillin; Z88.8 Allergy status to other drugs, medicaments and biological substances

== ENCOUNTER → 2017-10-30 | Outpatient (CLI) | payer OTHER ==
[2017-10-30 18:19] LABS: BASO % 0.4 % (0.0-1.0); EOS # 0.1 10^3/uL (0.0-0.50); HEMATOCRIT 31.5 % (36.0-47.0); HEMOGLOBIN 10.4 g/dl (12.0-15.5); IMMATURE GRANULOCYTE % 0.4 % (0-3.0); LYMPH # 2.8 10^3/uL (1.5-6.5); MEAN CORPUSCULAR HEMOGLOBIN 31.2 pg (27.0-33.0); MEAN CORPUSCULAR VOLUME 94.6 fl (80.0-96.0); MONO # 0.9 10^3/uL (0.0-0.8); MONO % 13.1 % (0.0-5.0); NEUTROPHILS # 3.2 10^3/uL (1.8-7.7); NEUTROPHILS % 45.1 % (36.0-66.0); PLATELET COUNT, AUTOMATED 218 10^3/uL (150-450); RED BLOOD COUNT 3.33 10^6/uL (4.00-5.40); RED CELL DISTRIBUTION WIDTH 13.2 % (11.5-14.5); WHITE BLOOD COUNT 7.1 10^3/uL (4.0-10.0)
[2017-10-30 18:44] LABS: VALPROIC ACID (DEPAKOTE) 70.6 UG/ML (50.0-100.0)
[2017-11-02 00:08] LABS: CLOZAPINE 1 22 ng/mL (350-650); CLOZAPINE 2 None Detected (Not Estab.)
== END ==
LOC: M LAB 17:36
DX: F25.0 Schizoaffective disorder, bipolar type (principal)
CPT/HCPCS: 80164

== ENCOUNTER → 2017-11-03 | Outpatient (REF) | payer OTHER | LOC: M LAB REF 09:00 | DX: R19.7 Diarrhea, unspecified (principal) | CPT/HCPCS: 87507 ==

== ENCOUNTER → 2017-11-06 | Outpatient (CLI) | payer OTHER ==
[2017-11-06 09:40] LABS: BASO % 0.4 % (0.0-1.0); EOS # 0.3 10^3/uL (0.0-0.50); EOS % 3.8 % (0.0-3.0); HEMATOCRIT 33.8 % (36.0-47.0); HEMOGLOBIN 11.2 g/dl (12.0-15.5); IMMATURE GRANULOCYTE % 0.3 % (0-3.0); LYMPH # 3.3 10^3/uL (1.5-6.5); MEAN CORPUSCULAR HEMOGLOBIN 31.1 pg (27.0-33.0); MEAN CORPUSCULAR HGB CONC 33.1 g/dl (32.0-36.5); MEAN CORPUSCULAR VOLUME 93.9 fl (80.0-96.0); MONO # 0.6 10^3/uL (0.0-0.8); MONO % 9.2 % (0.0-5.0); NEUTROPHILS # 2.5 10^3/uL (1.8-7.7); NEUTROPHILS % 37.3 % (36.0-66.0); PLATELET COUNT, AUTOMATED 276 10^3/uL (150-450); RED CELL DISTRIBUTION WIDTH 13.9 % (11.5-14.5); WHITE BLOOD COUNT 6.8 10^3/uL (4.0-10.0)
== END ==
LOC: M LAB 09:08
DX: E25.0 Congenital adrenogenital disorders associated with enzyme deficiency (principal)
CPT/HCPCS: 85025

== ENCOUNTER 2017-11-09 19:12 | Inpatient (IN) | payer OTHER ==
[2017-11-09 20:48] LABS: HEMATOCRIT 35.9 % (36.0-47.0); HEMOGLOBIN 11.8 g/dl (12.0-15.5); MEAN CORPUSCULAR HGB CONC 32.9 g/dl (32.0-36.5); MEAN CORPUSCULAR VOLUME 94.2 fl (80.0-96.0); PLATELET COUNT, AUTOMATED 251 10^3/uL (150-450); RED BLOOD COUNT 3.81 10^6/uL (4.00-5.40); RED CELL DISTRIBUTION WIDTH 13.8 % (11.5-14.5); WHITE BLOOD COUNT 8.3 10^3/uL (4.0-10.0)
[2017-11-09 21:16] LABS: AMPHETAMINES LEVEL URINE NEGATIVE (NEGATIVE); BARBITURATES URINE NEGATIVE (NEGATIVE); BENZODIAZEPINES URINE NEGATIVE (NEGATIVE); CANNABINOIDS URINE NEGATIVE (NEGATIVE); COCAINE METABOLITE URINE NEGATIVE (NEGATIVE); METHADONE URINE NEGATIVE (NEGATIVE); OPIATES URINE NEGATIVE (NEGATIVE); PHENCYCLIDINE URINE NEGATIVE (NEGATIVE)
[2017-11-09 21:27] LABS: ALBUMIN 3.8 GM/DL (3.2-5.2); ALKALINE PHOSPHATASE 41 U/L (45-117); ALT/SGPT 26 U/L (12-78); ANION GAP 7 MEQ/L (8-16); AST/SGOT 13 U/L (7-37); BILIRUBIN,DIRECT < 0.1 MG/DL (0.0-0.2); BILIRUBIN,TOTAL 0.2 MG/DL (0.2-1.0); BLOOD UREA NITROGEN 13 MG/DL (7-18); CALCIUM LEVEL 9.7 MG/DL (8.5-10.1); CARBON DIOXIDE LEVEL 28 MEQ/L (21-32); CHLORIDE LEVEL 105 MEQ/L (98-107); CREATININE FOR GFR 0.48 MG/DL (0.55-1.30); ETHYL ALCOHOL (ETHANOL) 0.003 % (0.000-0.010); GLOMERULAR FILTRATION RATE > 60.0 (>60); GLUCOSE, FASTING 81 MG/DL (70-100); POTASSIUM SERUM 4.2 MEQ/L (3.5-5.1); SALICYLATE LEVEL 4.6 MG/DL (5.0-30.0); SODIUM LEVEL 140 MEQ/L (136-145); THYROID STIMULATING HORMONE < 0.005 uIU/ML (0.358-3.740)
[2017-11-09 21:39] LABS: ACETAMINOPHEN LEVEL < 2.0 UG/ML (10.0-30.0)
[2017-11-09 21:53] LABS: CONTROL LINE HCG INT CTR LINE PRESENT; HCG, SERUM QUALITATIVE NEGATIVE (NEGATIVE)
[2017-11-10] MEDS ORDERED: DIVALPROEX 500MG *ER* TAB PO (01:15)
[2017-11-10 01:18] LABS: BASO % 0.4 % (0.0-1.0); EOS # 0.1 10^3/uL (0.0-0.50); EOS % 1.2 % (0.0-3.0); IMMATURE GRANULOCYTE % 0.2 % (0-3.0); LYMPH % 35.6 % (24.0-44.0); MONO # 0.7 10^3/uL (0.0-0.8); MONO % 7.9 % (0.0-5.0); NEUTROPHILS # 4.5 10^3/uL (1.8-7.7); NEUTROPHILS % 54.7 % (36.0-66.0)
[2017-11-10 01:21] LABS: DIFF SLIDE NUMBER 375
[2017-11-10] MEDS: hydrOXYzine 10 MG TAB PO ×2 (02:58→08:18)
[2017-11-10] MEDS: FOLIC ACID 1 MG TAB PO (08:18)
[2017-11-10] MEDS: FERROUS SULFATE 325MG TAB PO (08:19)
[2017-11-10] MEDS: SERTRALINE 100 MG TAB PO (08:19)
[2017-11-10] MEDS: FLUTICASONE PROP 0.05% NASAL SPRAY 16 GM (FLONASE) NARES (09:29)
[2017-11-10 09:36] LABS: KETONE, URINE AUTO RFX TRACE mg/dL (NEGATIVE); LEUKOCYTE ESTERASE UR AUTO RFX NEGATIVE (NEGATIVE); MUCUS, URINE RFX LARGE (NEGATIVE); NITRITE, URINE AUTO RFX NEGATIVE (NEGATIVE); RBC, URINE AUTO RFX 9 /HPF (0-3); SPECIFIC GRAVITY UR AUTO RFX 1.036 (1.002-1.035); SQUAM EPITHELIAL CELL UR AURFX 5 /HPF (0-6); WBC, URINE AUTO RFX 8 /HPF (0-3)
[2017-11-10] MEDS: OLANZapine ORAL DISINTEGRATING TAB 5MG PO (09:42)
[2017-11-10] MEDS: ACETAMINOPHEN TAB 650MG DOSE (2X325MG) PO (10:07)
[2017-11-10 10:52] LABS: HEPATITIS B SURFACE ANTIGEN NEGATIVE (NEGATIVE)
[2017-11-10] MEDS ORDERED: PILL CRUSHER/CUTTER 1 EACH XX (11:00)
[2017-11-10] MEDS: HALOPERIDOL 10 MG TAB PO (11:18)
[2017-11-10] MEDS: LORazepam 2 MG TAB PO (11:18)
[2017-11-10 11:19] LABS: HEPATITIS B CORE ANTIBODY IGM NEGATIVE (NEGATIVE)
[2017-11-10 11:19] LABS: HEPATITIS C VIRUS ABY INDEX 0.1 INDEX (<0.8)
[2017-11-10 11:20] LABS: HIV 1&2 SCREEN CENTAUR NEGATIVE (NEGATIVE)
[2017-11-10 11:21] LABS: HEPATITIS A ANTIBODY IGM NEGATIVE (NEGATIVE)
[2017-11-10 11:30] LABS: CHLAMYDIA DNA AMPLIFICATION NEGATIVE (NEGATIVE); GC DNA AMPLIFICATION NEGATIVE (NEGATIVE)
[2017-11-10] MEDS: DIVALPROEX 500MG *ER* TAB PO (21:00)
[2017-11-10] MEDS: cloZAPine 100 MG TAB (S0136) PO (21:00)
[2017-11-11] MEDS: cloZAPine 100 MG TAB (S0136) PO ×2 (00:05→20:42)
[2017-11-11] MEDS: DIVALPROEX 500MG *ER* TAB PO ×2 (00:05→20:43)
[2017-11-11] MEDS: LORazepam 2 MG TAB PO ×2 (00:05→20:42)
[2017-11-11] MEDS: FOLIC ACID 1 MG TAB PO (09:11)
[2017-11-11] MEDS: SERTRALINE 100 MG TAB PO (09:11)
[2017-11-11] MEDS: FLUTICASONE PROP 0.05% NASAL SPRAY 16 GM (FLONASE) NARES (09:11)
[2017-11-11] MEDS: FERROUS SULFATE 325MG TAB PO (09:11)
[2017-11-11] MEDS: HALOPERIDOL 10 MG TAB PO ×2 (12:57→19:03)
[2017-11-11] MEDS: cloZAPine 25 MG TAB (S0136) PO (13:06)
[2017-11-11 13:19] LABS: BASO % 0.2 % (0.0-1.0); EOS # 0.1 10^3/uL (0.0-0.50); EOS % 1.7 % (0.0-3.0); HEMOGLOBIN 12.5 g/dl (12.0-15.5); IMMATURE GRANULOCYTE % 0.2 % (0-3.0); LYMPH # 2.7 10^3/uL (1.5-6.5); LYMPH % 32.5 % (24.0-44.0); MEAN CORPUSCULAR HEMOGLOBIN 30.8 pg (27.0-33.0); MEAN CORPUSCULAR HGB CONC 32.9 g/dl (32.0-36.5); MEAN CORPUSCULAR VOLUME 93.6 fl (80.0-96.0); MONO # 0.7 10^3/uL (0.0-0.8); MONO % 7.9 % (0.0-5.0); NEUTROPHILS # 4.8 10^3/uL (1.8-7.7); NEUTROPHILS % 57.5 % (36.0-66.0); PLATELET COUNT, AUTOMATED 248 10^3/uL (150-450); RED BLOOD COUNT 4.06 10^6/uL (4.00-5.40); RED CELL DISTRIBUTION WIDTH 13.3 % (11.5-14.5); WHITE BLOOD COUNT 8.4 10^3/uL (4.0-10.0)
[2017-11-11] MEDS: hydrOXYzine 10 MG TAB PO (20:42)
[2017-11-12] MEDS: FLUTICASONE PROP 0.05% NASAL SPRAY 16 GM (FLONASE) NARES (09:49)
[2017-11-12] MEDS: cloZAPine 25 MG TAB (S0136) PO (09:49)
[2017-11-12] MEDS: SERTRALINE 100 MG TAB PO (09:49)
[2017-11-12] MEDS: FERROUS SULFATE 325MG TAB PO (09:49)
[2017-11-12] MEDS: FOLIC ACID 1 MG TAB PO (09:49)
[2017-11-12] MEDS: HALOPERIDOL 10 MG TAB PO ×2 (11:42→20:43)
[2017-11-12] MEDS: DIVALPROEX 500MG *ER* TAB PO (20:43)
[2017-11-12] MEDS: LORazepam 2 MG TAB PO (20:44)
[2017-11-12] MEDS: traZODone 50 MG TAB PO (20:44)
[2017-11-12] MEDS: cloZAPine 100 MG TAB (S0136) PO (20:44)
[2017-11-13] MEDS: cloZAPine 25 MG TAB (S0136) PO (09:17)
[2017-11-13] MEDS: SERTRALINE 100 MG TAB PO (09:17)
[2017-11-13] MEDS: FERROUS SULFATE 325MG TAB PO (09:17)
[2017-11-13] MEDS: FLUTICASONE PROP 0.05% NASAL SPRAY 16 GM (FLONASE) NARES (09:17)
[2017-11-13] MEDS: FOLIC ACID 1 MG TAB PO (09:17)
[2017-11-13 13:00] LABS: THYROID STIMULATING HORMONE < 0.005 uIU/ML (0.358-3.740)
[2017-11-13] MEDS: cloZAPine 100 MG TAB (S0136) PO (21:24)
[2017-11-13] MEDS: traZODone 50 MG TAB PO (21:25)
[2017-11-13] MEDS: DIVALPROEX 500MG *ER* TAB PO (21:25)
[2017-11-14 00:06] LABS: CLOZAPINE 1 48 ng/mL (350-650); CLOZAPINE 2 None Detected (Not Estab.)
[2017-11-14] MEDS: FLUTICASONE PROP 0.05% NASAL SPRAY 16 GM (FLONASE) NARES (09:00)
[2017-11-14] MEDS: cloZAPine 25 MG TAB (S0136) PO ×2 (09:05→20:34)
[2017-11-14] MEDS: FERROUS SULFATE 325MG TAB PO (09:05)
[2017-11-14] MEDS: FOLIC ACID 1 MG TAB PO (09:05)
[2017-11-14] MEDS: SERTRALINE 100 MG TAB PO (09:05)
[2017-11-14] MEDS: LORazepam 2 MG TAB PO (20:34)
[2017-11-14] MEDS: HALOPERIDOL 10 MG TAB PO (20:34)
[2017-11-14] MEDS: hydrOXYzine 10 MG TAB PO (20:34)
[2017-11-14] MEDS: cloZAPine 100 MG TAB (S0136) PO (20:34)
[2017-11-14] MEDS: traZODone 50 MG TAB PO (20:34)
[2017-11-14] MEDS: DIVALPROEX 500MG *ER* TAB PO (20:34)
[2017-11-15] MEDS: FOLIC ACID 1 MG TAB PO (09:50)
[2017-11-15] MEDS: SERTRALINE 100 MG TAB PO (09:50)
[2017-11-15] MEDS: cloZAPine 25 MG TAB (S0136) PO ×2 (09:50→21:13)
[2017-11-15] MEDS: FERROUS SULFATE 325MG TAB PO (09:50)
[2017-11-15] MEDS: FLUTICASONE PROP 0.05% NASAL SPRAY 16 GM (FLONASE) NARES (09:53)
[2017-11-15 15:03] LABS: BASO % 0.4 % (0.0-1.0); EOS # 0.2 10^3/uL (0.0-0.50); EOS % 3.4 % (0.0-3.0); HEMATOCRIT 31.9 % (36.0-47.0); HEMOGLOBIN 10.5 g/dl (12.0-15.5); IMMATURE GRANULOCYTE % 0.4 % (0-3.0); LYMPH # 2.3 10^3/uL (1.5-6.5); LYMPH % 46.4 % (24.0-44.0); MEAN CORPUSCULAR HEMOGLOBIN 30.6 pg (27.0-33.0); MEAN CORPUSCULAR HGB CONC 32.9 g/dl (32.0-36.5); MONO # 0.6 10^3/uL (0.0-0.8); MONO % 12.5 % (0.0-5.0); NEUTROPHILS # 1.9 10^3/uL (1.8-7.7); NEUTROPHILS % 36.9 % (36.0-66.0); PLATELET COUNT, AUTOMATED 173 10^3/uL (150-450); RED BLOOD COUNT 3.43 10^6/uL (4.00-5.40)
[2017-11-15] MEDS: HALOPERIDOL 10 MG TAB PO (21:13)
[2017-11-15] MEDS: LORazepam 2 MG TAB PO (21:13)
[2017-11-15] MEDS: traZODone 50 MG TAB PO (21:13)
[2017-11-15] MEDS: cloZAPine 100 MG TAB (S0136) PO (21:13)
[2017-11-15] MEDS: DIVALPROEX 500MG *ER* TAB PO (21:13)
[2017-11-16] MEDS: FERROUS SULFATE 325MG TAB PO (10:44)
[2017-11-16] MEDS: SERTRALINE 100 MG TAB PO (10:44)
[2017-11-16] MEDS: FOLIC ACID 1 MG TAB PO (10:44)
[2017-11-16] MEDS: FLUTICASONE PROP 0.05% NASAL SPRAY 16 GM (FLONASE) NARES ×3 (10:44→11:20)
[2017-11-16] MEDS: HALOPERIDOL DECANOATE 100 MG/ML VIAL (J1631) IM (16:38)
[2017-11-16] MEDS: DIVALPROEX 500MG *ER* TAB PO (20:05)
[2017-11-16] MEDS: cloZAPine 100 MG TAB (S0136) PO (20:05)
[2017-11-16] MEDS: cloZAPine 25 MG TAB (S0136) PO (20:05)
[2017-11-16] MEDS: traZODone 50 MG TAB PO (20:23)
[2017-11-16] MEDS: LORazepam 2 MG TAB PO (20:24)
[2017-11-16] MEDS: HALOPERIDOL 10 MG TAB PO (20:24)
[2017-11-17 08:06] LABS: CLOZAPINE 1 92 ng/mL (350-650); CLOZAPINE 2 34 ng/mL (Not Estab.); CLOZAPINE 3 126 ng/mL (.)
[2017-11-17 08:13] LABS: VALPROIC ACID (DEPAKOTE) 97.6 UG/ML (50.0-100.0)
[2017-11-17] MEDS: FOLIC ACID 1 MG TAB PO (08:45)
[2017-11-17] MEDS: SERTRALINE 100 MG TAB PO (08:45)
[2017-11-17] MEDS: FERROUS SULFATE 325MG TAB PO (08:45)
[2017-11-17] MEDS: DIVALPROEX 500MG *ER* TAB PO (21:06)
[2017-11-17] MEDS: cloZAPine 100 MG TAB (S0136) PO (21:06)
[2017-11-17] MEDS: traZODone 50 MG TAB PO (21:06)
[2017-11-17] MEDS: cloZAPine 25 MG TAB (S0136) PO (21:06)
[2017-11-17] MEDS: hydrOXYzine 10 MG TAB PO (21:25)
[2017-11-18] MEDS: FOLIC ACID 1 MG TAB PO (08:46)
[2017-11-18] MEDS: SERTRALINE 100 MG TAB PO (08:46)
[2017-11-18] MEDS: FERROUS SULFATE 325MG TAB PO (08:46)
[2017-11-18] MEDS: FLUTICASONE PROP 0.05% NASAL SPRAY 16 GM (FLONASE) NARES (08:47)
[2017-11-18] MEDS: hydrOXYzine 10 MG TAB PO (18:50)
[2017-11-18] MEDS: cloZAPine 100 MG TAB (S0136) PO (20:50)
[2017-11-18] MEDS: DIVALPROEX 500MG *ER* TAB PO (20:51)
[2017-11-18] MEDS: cloZAPine 25 MG TAB (S0136) PO (20:51)
[2017-11-18] MEDS: traZODone 50 MG TAB PO (21:48)
[2017-11-19] MEDS: FLUTICASONE PROP 0.05% NASAL SPRAY 16 GM (FLONASE) NARES (09:00)
[2017-11-19] MEDS: SERTRALINE 100 MG TAB PO (09:38)
[2017-11-19] MEDS: FERROUS SULFATE 325MG TAB PO (09:38)
[2017-11-19] MEDS: FOLIC ACID 1 MG TAB PO (09:39)
[2017-11-19] MEDS: cloZAPine 100 MG TAB (S0136) PO (20:15)
[2017-11-19] MEDS: cloZAPine 25 MG TAB (S0136) PO (20:15)
[2017-11-19] MEDS: LORazepam 2 MG TAB PO (20:15)
[2017-11-19] MEDS: DIVALPROEX 250MG *ER* TAB PO (20:16)
[2017-11-19] MEDS: hydrOXYzine 10 MG TAB PO (20:44)
[2017-11-19] MEDS: traZODone 50 MG TAB PO (20:44)
[2017-11-19] MEDS: HALOPERIDOL 10 MG TAB PO (20:44)
[2017-11-20] MEDS: FLUTICASONE PROP 0.05% NASAL SPRAY 16 GM (FLONASE) NARES (09:00)
[2017-11-20] MEDS: SERTRALINE 100 MG TAB PO (09:14)
[2017-11-20] MEDS: FOLIC ACID 1 MG TAB PO (09:14)
[2017-11-20] MEDS: FERROUS SULFATE 325MG TAB PO (09:14)
[2017-11-20] MEDS: HALOPERIDOL 10 MG TAB PO (21:25)
[2017-11-20] MEDS: traZODone 50 MG TAB PO (21:25)
[2017-11-20] MEDS: LORazepam 2 MG TAB PO (21:25)
[2017-11-20] MEDS: DIVALPROEX 250MG *ER* TAB PO (21:26)
[2017-11-20] MEDS: cloZAPine 100 MG TAB (S0136) PO (21:26)
[2017-11-20] MEDS: cloZAPine 25 MG TAB (S0136) PO (21:26)
[2017-11-21 07:30] LABS: VALPROIC ACID (DEPAKOTE) 70.8 UG/ML (50.0-100.0)
[2017-11-21] MEDS: FLUTICASONE PROP 0.05% NASAL SPRAY 16 GM (FLONASE) NARES (09:00)
[2017-11-21] MEDS: FOLIC ACID 1 MG TAB PO (09:06)
[2017-11-21] MEDS: FERROUS SULFATE 325MG TAB PO (09:06)
[2017-11-21] MEDS: SERTRALINE 100 MG TAB PO (09:06)
[2017-11-21] MEDS: cloZAPine 100 MG TAB (S0136) PO (21:47)
[2017-11-21] MEDS: DIVALPROEX 250MG *ER* TAB PO (21:48)
[2017-11-21] MEDS: traZODone 50 MG TAB PO (21:48)
[2017-11-22] MEDS: FLUTICASONE PROP 0.05% NASAL SPRAY 16 GM (FLONASE) NARES (09:00)
[2017-11-22] MEDS: SERTRALINE 100 MG TAB PO (09:14)
[2017-11-22] MEDS: FOLIC ACID 1 MG TAB PO (09:14)
[2017-11-22] MEDS: FERROUS SULFATE 325MG TAB PO (09:14)
[2017-11-22] MEDS: cloZAPine 100 MG TAB (S0136) PO (20:24)
[2017-11-22] MEDS: DIVALPROEX 250MG *ER* TAB PO (20:24)
[2017-11-22] MEDS: traZODone 50 MG TAB PO (22:28)
[2017-11-23] MEDS: SERTRALINE 100 MG TAB PO (08:20)
[2017-11-23] MEDS: FOLIC ACID 1 MG TAB PO (08:20)
[2017-11-23] MEDS: FERROUS SULFATE 325MG TAB PO (08:20)
[2017-11-23] MEDS: FLUTICASONE PROP 0.05% NASAL SPRAY 16 GM (FLONASE) NARES (08:21)
[2017-11-23] MEDS: HALOPERIDOL 10 MG TAB PO (19:59)
[2017-11-23] MEDS: LORazepam 2 MG TAB PO (19:59)
[2017-11-23] MEDS: DIVALPROEX 250MG *ER* TAB PO (20:00)
[2017-11-23] MEDS: traZODone 50 MG TAB PO (20:01)
[2017-11-23] MEDS: cloZAPine 100 MG TAB (S0136) PO (20:01)
[2017-11-24] MEDS: FLUTICASONE PROP 0.05% NASAL SPRAY 16 GM (FLONASE) NARES (09:00)
[2017-11-24] MEDS: FOLIC ACID 1 MG TAB PO (09:09)
[2017-11-24] MEDS: FERROUS SULFATE 325MG TAB PO (09:09)
[2017-11-24] MEDS: SERTRALINE 100 MG TAB PO (09:09)
[2017-11-24 10:27] LABS: CLOZAPINE 1 110 ng/mL (350-650); CLOZAPINE 2 28 ng/mL (Not Estab.); CLOZAPINE 3 138 ng/mL (.)
[2017-11-24] MEDS: HALOPERIDOL 10 MG TAB PO (21:25)
[2017-11-24] MEDS: LORazepam 2 MG TAB PO (21:25)
[2017-11-24] MEDS: traZODone 50 MG TAB PO (21:25)
[2017-11-24] MEDS: cloZAPine 100 MG TAB (S0136) PO (21:26)
[2017-11-24] MEDS: DIVALPROEX 250MG *ER* TAB PO (21:27)
[2017-11-25 08:16] LABS: VALPROIC ACID (DEPAKOTE) 60.5 UG/ML (50.0-100.0)
[2017-11-25] MEDS: FLUTICASONE PROP 0.05% NASAL SPRAY 16 GM (FLONASE) NARES (09:00)
[2017-11-25] MEDS: SERTRALINE 100 MG TAB PO (09:28)
[2017-11-25] MEDS: FOLIC ACID 1 MG TAB PO (09:28)
[2017-11-25] MEDS: FERROUS SULFATE 325MG TAB PO (09:28)
[2017-11-25] MEDS: HALOPERIDOL 10 MG TAB PO (21:55)
[2017-11-25] MEDS: LORazepam 2 MG TAB PO (21:55)
[2017-11-25] MEDS: traZODone 50 MG TAB PO (21:55)
[2017-11-25] MEDS: DIVALPROEX 250MG *ER* TAB PO (21:55)
[2017-11-25] MEDS: cloZAPine 100 MG TAB (S0136) PO (21:55)
[2017-11-26] MEDS: FLUTICASONE PROP 0.05% NASAL SPRAY 16 GM (FLONASE) NARES (09:00)
[2017-11-26] MEDS: FERROUS SULFATE 325MG TAB PO (09:21)
[2017-11-26] MEDS: SERTRALINE 100 MG TAB PO (09:21)
[2017-11-26] MEDS: FOLIC ACID 1 MG TAB PO (09:21)
[2017-11-26] MEDS: cloZAPine 100 MG TAB (S0136) PO (21:32)
[2017-11-26] MEDS: DIVALPROEX 250MG *ER* TAB PO (21:33)
[2017-11-26] MEDS: traZODone 50 MG TAB PO (21:33)
[2017-11-27] MEDS: SERTRALINE 100 MG TAB PO (08:46)
[2017-11-27] MEDS: FLUTICASONE PROP 0.05% NASAL SPRAY 16 GM (FLONASE) NARES (08:46)
[2017-11-27] MEDS: FOLIC ACID 1 MG TAB PO (08:46)
[2017-11-27] MEDS: FERROUS SULFATE 325MG TAB PO (08:46)
[2017-11-27] MEDS: cloZAPine 100 MG TAB (S0136) PO (21:18)
[2017-11-27] MEDS: DIVALPROEX 250MG *ER* TAB PO (21:19)
[2017-11-27] MEDS: traZODone 50 MG TAB PO (21:19)
[2017-11-28] MEDS: FLUTICASONE PROP 0.05% NASAL SPRAY 16 GM (FLONASE) NARES (09:00)
[2017-11-28] MEDS: FERROUS SULFATE 325MG TAB PO (09:06)
[2017-11-28] MEDS: FOLIC ACID 1 MG TAB PO (09:06)
[2017-11-28] MEDS: SERTRALINE 100 MG TAB PO (09:06)
[2017-11-28 14:12] LABS: CLOZAPINE 1 179 ng/mL (350-650); CLOZAPINE 2 64 ng/mL (Not Estab.); CLOZAPINE 3 243 ng/mL (.)
[2017-11-28] MEDS: MAALOX 30 ML SUSP *UDC PO (20:09)
[2017-11-28] MEDS: cloZAPine 100 MG TAB (S0136) PO (20:29)
[2017-11-28] MEDS: DIVALPROEX 500MG *ER* TAB PO (20:29)
[2017-11-29 08:39] LABS: BASO % 0.4 % (0.0-1.0); EOS # 0.2 10^3/uL (0.0-0.50); EOS % 2.9 % (0.0-3.0); HEMATOCRIT 31.8 % (36.0-47.0); HEMOGLOBIN 10.4 g/dl (12.0-15.5); IMMATURE GRANULOCYTE % 0.4 % (0-3.0); LYMPH # 2.6 10^3/uL (1.5-6.5); LYMPH % 47.1 % (24.0-44.0); MEAN CORPUSCULAR HGB CONC 32.7 g/dl (32.0-36.5); MEAN CORPUSCULAR VOLUME 91.6 fl (80.0-96.0); MONO # 0.6 10^3/uL (0.0-0.8); MONO % 10.2 % (0.0-5.0); NEUTROPHILS # 2.2 10^3/uL (1.8-7.7); PLATELET COUNT, AUTOMATED 239 10^3/uL (150-450); RED BLOOD COUNT 3.47 10^6/uL (4.00-5.40); RED CELL DISTRIBUTION WIDTH 12.4 % (11.5-14.5); WHITE BLOOD COUNT 5.6 10^3/uL (4.0-10.0)
[2017-11-29] MEDS: FOLIC ACID 1 MG TAB PO (09:14)
[2017-11-29] MEDS: SERTRALINE 100 MG TAB PO (09:14)
[2017-11-29] MEDS: FLUTICASONE PROP 0.05% NASAL SPRAY 16 GM (FLONASE) NARES (09:14)
[2017-11-29] MEDS: FERROUS SULFATE 325MG TAB PO (09:14)
[2017-11-29 09:25] LABS: VALPROIC ACID (DEPAKOTE) 46.6 UG/ML (50.0-100.0)
[2017-11-29 09:29] LABS: ALBUMIN 3.3 GM/DL (3.2-5.2); ALBUMIN/GLOBULIN RATIO 0.92 (1.00-1.93); ALKALINE PHOSPHATASE 40 U/L (45-117); ALT/SGPT 24 U/L (12-78); ANION GAP 5 MEQ/L (8-16); AST/SGOT 14 U/L (7-37); BILIRUBIN,TOTAL < 0.1 MG/DL (0.2-1.0); BLOOD UREA NITROGEN 12 MG/DL (7-18); CALCIUM LEVEL 9.2 MG/DL (8.5-10.1); CARBON DIOXIDE LEVEL 29 MEQ/L (21-32); CHLORIDE LEVEL 107 MEQ/L (98-107); CREATININE FOR GFR 0.54 MG/DL (0.55-1.30); GLOMERULAR FILTRATION RATE > 60.0 (>60); GLUCOSE, FASTING 87 MG/DL (70-100); POTASSIUM SERUM 4.6 MEQ/L (3.5-5.1); SODIUM LEVEL 141 MEQ/L (136-145); TOTAL PROTEIN 6.9 GM/DL (6.4-8.2)
[2017-11-29] MEDS: cloZAPine 100 MG TAB (S0136) PO (20:14)
[2017-11-29] MEDS: DIVALPROEX 250MG *ER* TAB PO (20:15)
[2017-11-30] MEDS: ACETAMINOPHEN TAB 650MG DOSE (2X325MG) PO (06:18)
[2017-11-30] MEDS: FLUTICASONE PROP 0.05% NASAL SPRAY 16 GM (FLONASE) NARES (09:00)
[2017-11-30] MEDS: FERROUS SULFATE 325MG TAB PO (09:47)
[2017-11-30] MEDS: SERTRALINE 100 MG TAB PO (09:47)
[2017-11-30] MEDS: FOLIC ACID 1 MG TAB PO (09:47)
[2017-11-30] MEDS: hydrOXYzine 10 MG TAB PO ×2 (15:50→22:46)
[2017-11-30] MEDS: cloZAPine 100 MG TAB (S0136) PO (21:25)
[2017-11-30] MEDS: DIVALPROEX 250MG *ER* TAB PO (21:25)
[2017-11-30] MEDS: LORazepam 2 MG TAB PO (22:45)
[2017-12-01] MEDS: FLUTICASONE PROP 0.05% NASAL SPRAY 16 GM (FLONASE) NARES (09:00)
[2017-12-01] MEDS ORDERED: **PENDING PPD ENTRY XX (09:00)
[2017-12-01] MEDS: SERTRALINE 100 MG TAB PO (09:18)
[2017-12-01] MEDS: FERROUS SULFATE 325MG TAB PO (09:18)
[2017-12-01] MEDS: FOLIC ACID 1 MG TAB PO (09:18)
[2017-12-01] MEDS: TUBERCULIN PPD 5 UNITS/0.1 ML ID (11:26)
[2017-12-01] MEDS: DIVALPROEX 250MG *ER* TAB PO (21:44)
[2017-12-01] MEDS: cloZAPine 100 MG TAB (S0136) PO (21:45)
[2017-12-01] MEDS: hydrOXYzine 10 MG TAB PO (21:51)
[2017-12-02 00:06] LABS: CLOZAPINE 1 221 ng/mL (350-650); CLOZAPINE 2 92 ng/mL (Not Estab.); CLOZAPINE 3 313 ng/mL (.)
[2017-12-02] MEDS: FERROUS SULFATE 325MG TAB PO (08:39)
[2017-12-02] MEDS: FOLIC ACID 1 MG TAB PO (08:39)
[2017-12-02] MEDS: SERTRALINE 100 MG TAB PO (08:39)
[2017-12-02] MEDS: FLUTICASONE PROP 0.05% NASAL SPRAY 16 GM (FLONASE) NARES (08:40)
[2017-12-02] MEDS: ACETAMINOPHEN TAB 650MG DOSE (2X325MG) PO (15:17)
[2017-12-02] MEDS: DIVALPROEX 250MG *ER* TAB PO (21:24)
[2017-12-02] MEDS: cloZAPine 100 MG TAB (S0136) PO (21:24)
[2017-12-02] MEDS: hydrOXYzine 10 MG TAB PO (21:25)
[2017-12-03] MEDS: FERROUS SULFATE 325MG TAB PO (08:52)
[2017-12-03] MEDS: SERTRALINE 100 MG TAB PO (08:52)
[2017-12-03] MEDS: FLUTICASONE PROP 0.05% NASAL SPRAY 16 GM (FLONASE) NARES (08:52)
[2017-12-03] MEDS: FOLIC ACID 1 MG TAB PO (08:52)
[2017-12-03] MEDS: PPD DOCUMENTATION ENTRY MISC XX (11:15)
[2017-12-03] MEDS: cloZAPine 100 MG TAB (S0136) PO (20:50)
[2017-12-03] MEDS: DIVALPROEX 250MG *ER* TAB PO (20:51)
[2017-12-04] MEDS: FLUTICASONE PROP 0.05% NASAL SPRAY 16 GM (FLONASE) NARES (09:00)
[2017-12-04] MEDS: SERTRALINE 100 MG TAB PO (09:37)
[2017-12-04] MEDS: FERROUS SULFATE 325MG TAB PO (09:37)
[2017-12-04] MEDS: FOLIC ACID 1 MG TAB PO (09:37)
[2017-12-04] MEDS: hydrOXYzine 10 MG TAB PO (21:11)
[2017-12-04] MEDS: cloZAPine 100 MG TAB (S0136) PO (21:11)
[2017-12-04] MEDS: DIVALPROEX 250MG *ER* TAB PO (21:11)
[2017-12-05] MEDS: SERTRALINE 100 MG TAB PO (08:31)
[2017-12-05] MEDS: FOLIC ACID 1 MG TAB PO (08:31)
[2017-12-05] MEDS: FERROUS SULFATE 325MG TAB PO (08:31)
[2017-12-05] MEDS: FLUTICASONE PROP 0.05% NASAL SPRAY 16 GM (FLONASE) NARES (08:34)
[2017-12-05 12:23] LABS: BASO % 0.4 % (0.0-1.0); EOS # 0.1 10^3/uL (0.0-0.50); EOS % 1.9 % (0.0-3.0); HEMATOCRIT 33.4 % (36.0-47.0); HEMOGLOBIN 11.1 g/dl (12.0-15.5); IMMATURE GRANULOCYTE % 0.2 % (0-3.0); LYMPH % 42.1 % (24.0-44.0); MEAN CORPUSCULAR HEMOGLOBIN 30.3 pg (27.0-33.0); MEAN CORPUSCULAR HGB CONC 33.2 g/dl (32.0-36.5); MEAN CORPUSCULAR VOLUME 91.3 fl (80.0-96.0); MONO # 0.5 10^3/uL (0.0-0.8); MONO % 9.7 % (0.0-5.0); NEUTROPHILS # 2.2 10^3/uL (1.8-7.7); NEUTROPHILS % 45.7 % (36.0-66.0); PLATELET COUNT, AUTOMATED 266 10^3/uL (150-450); RED BLOOD COUNT 3.66 10^6/uL (4.00-5.40); RED CELL DISTRIBUTION WIDTH 12.5 % (11.5-14.5); WHITE BLOOD COUNT 4.9 10^3/uL (4.0-10.0)
[2017-12-05] MEDS: MOM 30ML SUSPENSION UDC PO (13:33)
[2017-12-05] MEDS: cloZAPine 100 MG TAB (S0136) PO (20:43)
[2017-12-05] MEDS: DIVALPROEX SPRINKLE 125 MG CAP PO (20:44)
[2017-12-06] MEDS: SERTRALINE 100 MG TAB PO (08:21)
[2017-12-06] MEDS: FOLIC ACID 1 MG TAB PO (08:21)
[2017-12-06] MEDS: FLUTICASONE PROP 0.05% NASAL SPRAY 16 GM (FLONASE) NARES (08:21)
[2017-12-06] MEDS: FERROUS SULFATE 325MG TAB PO (08:21)
[2017-12-06] MEDS: DIVALPROEX SPRINKLE 125 MG CAP PO (20:01)
[2017-12-06] MEDS: cloZAPine 100 MG TAB (S0136) PO (20:01)
[2017-12-07] MEDS: FLUTICASONE PROP 0.05% NASAL SPRAY 16 GM (FLONASE) NARES (09:00)
[2017-12-07] MEDS: FERROUS SULFATE 325MG TAB PO (09:27)
[2017-12-07] MEDS: SERTRALINE 100 MG TAB PO (09:27)
[2017-12-07] MEDS: FOLIC ACID 1 MG TAB PO (09:27)
[2017-12-07 15:01] LABS: CLOZAPINE 1 246 ng/mL (350-650); CLOZAPINE 2 100 ng/mL (Not Estab.); CLOZAPINE 3 346 ng/mL (.)
[2017-12-07] MEDS: IBUPROFEN 400 MG TAB PO (16:27)
[2017-12-07] MEDS: MOM 30ML SUSPENSION UDC PO (18:02)
[2017-12-07] MEDS: cloZAPine 100 MG TAB (S0136) PO (21:49)
[2017-12-08] MEDS: FLUTICASONE PROP 0.05% NASAL SPRAY 16 GM (FLONASE) NARES (09:00)
[2017-12-08] MEDS: FERROUS SULFATE 325MG TAB PO (09:12)
[2017-12-08] MEDS: FOLIC ACID 1 MG TAB PO (09:12)
[2017-12-08] MEDS: SERTRALINE 100 MG TAB PO (09:12)
[2017-12-08] MEDS: IBUPROFEN 400 MG TAB PO (18:41)
[2017-12-08] MEDS: cloZAPine 100 MG TAB (S0136) PO (21:22)
[2017-12-09 07:39] LABS: BILIRUBIN,DIRECT < 0.1 MG/DL (0.0-0.2); CHOLESTEROL LEVEL 182 MG/DL (<200); HDL CHOLESTEROL 65 MG/DL (>40); LDL CHOLESTEROL 96 MG/DL (<100); NON-HDL-C 117 MG/DL; TRIGLYCERIDES LEVEL 103 MG/DL (<150)
[2017-12-09 07:40] LABS: ALBUMIN 3.5 GM/DL (3.2-5.2); ALBUMIN/GLOBULIN RATIO 0.97 (1.00-1.93); ALKALINE PHOSPHATASE 46 U/L (45-117); ALT/SGPT 38 U/L (12-78); ANION GAP 8 MEQ/L (8-16); AST/SGOT 16 U/L (7-37); BILIRUBIN,TOTAL 0.2 MG/DL (0.2-1.0); BLOOD UREA NITROGEN 12 MG/DL (7-18); CARBON DIOXIDE LEVEL 25 MEQ/L (21-32); CHLORIDE LEVEL 110 MEQ/L (98-107); CREATININE FOR GFR 0.54 MG/DL (0.55-1.30); GLOMERULAR FILTRATION RATE > 60.0 (>60); GLUCOSE, FASTING 92 MG/DL (70-100); POTASSIUM SERUM 4.4 MEQ/L (3.5-5.1); SODIUM LEVEL 143 MEQ/L (136-145); TOTAL PROTEIN 7.1 GM/DL (6.4-8.2)
[2017-12-09] MEDS: FLUTICASONE PROP 0.05% NASAL SPRAY 16 GM (FLONASE) NARES (09:00)
[2017-12-09] MEDS: FERROUS SULFATE 325MG TAB PO (09:44)
[2017-12-09] MEDS: SERTRALINE 100 MG TAB PO (09:44)
[2017-12-09] MEDS: FOLIC ACID 1 MG TAB PO (09:44)
[2017-12-09] MEDS: MOM 30ML SUSPENSION UDC PO (19:12)
[2017-12-09] MEDS: cloZAPine 100 MG TAB (S0136) PO (21:20)
[2017-12-10] MEDS: FLUTICASONE PROP 0.05% NASAL SPRAY 16 GM (FLONASE) NARES (09:00)
[2017-12-10] MEDS: SERTRALINE 100 MG TAB PO (09:32)
[2017-12-10] MEDS: FOLIC ACID 1 MG TAB PO (09:32)
[2017-12-10] MEDS: FERROUS SULFATE 325MG TAB PO (09:32)
[2017-12-10] MEDS: MOM 30ML SUSPENSION UDC PO (19:03)
[2017-12-10] MEDS: cloZAPine 100 MG TAB (S0136) PO (21:29)
[2017-12-11] MEDS: FLUTICASONE PROP 0.05% NASAL SPRAY 16 GM (FLONASE) NARES (09:00)
[2017-12-11] MEDS: FOLIC ACID 1 MG TAB PO (09:14)
[2017-12-11] MEDS: SERTRALINE 100 MG TAB PO (09:14)
[2017-12-11] MEDS: FERROUS SULFATE 325MG TAB PO (09:14)
[2017-12-11] MEDS: MAALOX 30 ML SUSP *UDC PO (17:38)
[2017-12-11] MEDS: cloZAPine 100 MG TAB (S0136) PO (21:16)
[2017-12-12] MEDS: FLUTICASONE PROP 0.05% NASAL SPRAY 16 GM (FLONASE) NARES (09:00)
[2017-12-12] MEDS: FERROUS SULFATE 325MG TAB PO (09:28)
[2017-12-12] MEDS: SERTRALINE 100 MG TAB PO (09:28)
[2017-12-12] MEDS: FOLIC ACID 1 MG TAB PO (09:28)
[2017-12-12] MEDS: MAALOX 30 ML SUSP *UDC PO (11:04)
[2017-12-12] MEDS: ONDANSETRON 4 MG TAB (S0181) PO (18:22)
[2017-12-12] MEDS: cloZAPine 100 MG TAB (S0136) PO (20:21)
[2017-12-13] MEDS ORDERED: ONDANSETRON 4 MG ORAL DISINTEGRATING TAB (Q0162 PER 1MG) PO (01:00)
[2017-12-13] MEDS: FLUTICASONE PROP 0.05% NASAL SPRAY 16 GM (FLONASE) NARES (09:00)
[2017-12-13] MEDS: SERTRALINE 100 MG TAB PO (09:24)
[2017-12-13] MEDS: FOLIC ACID 1 MG TAB PO (09:24)
[2017-12-13] MEDS: FERROUS SULFATE 325MG TAB PO (09:24)
[2017-12-13] MEDS: cloZAPine 100 MG TAB (S0136) PO (21:52)
[2017-12-14 07:40] LABS: BASO % 0.5 % (0.0-1.0); EOS # 0.1 10^3/uL (0.0-0.50); EOS % 2.1 % (0.0-3.0); HEMATOCRIT 31.3 % (36.0-47.0); HEMOGLOBIN 10.4 g/dl (12.0-15.5); IMMATURE GRANULOCYTE % 0.2 % (0-3.0); LYMPH # 2.7 10^3/uL (1.5-6.5); LYMPH % 47.2 % (24.0-44.0); MEAN CORPUSCULAR HEMOGLOBIN 30.2 pg (27.0-33.0); MEAN CORPUSCULAR HGB CONC 33.2 g/dl (32.0-36.5); MONO # 0.5 10^3/uL (0.0-0.8); MONO % 9.2 % (0.0-5.0); NEUTROPHILS # 2.4 10^3/uL (1.8-7.7); NEUTROPHILS % 40.8 % (36.0-66.0); PLATELET COUNT, AUTOMATED 239 10^3/uL (150-450); RED BLOOD COUNT 3.44 10^6/uL (4.00-5.40); RED CELL DISTRIBUTION WIDTH 13.1 % (11.5-14.5); WHITE BLOOD COUNT 5.8 10^3/uL (4.0-10.0)
[2017-12-14] MEDS: DOCUSATE SODIUM 100 MG CAP PO (09:00)
[2017-12-14] MEDS: FLUTICASONE PROP 0.05% NASAL SPRAY 16 GM (FLONASE) NARES (09:00)
[2017-12-14] MEDS: SERTRALINE 100 MG TAB PO (09:20)
[2017-12-14] MEDS: FERROUS SULFATE 325MG TAB PO (09:20)
[2017-12-14] MEDS: FOLIC ACID 1 MG TAB PO (09:21)
[2017-12-14] MEDS: HALOPERIDOL DECANOATE 100 MG/ML VIAL (J1631) IM (09:24)
[2017-12-14] MEDS: MOM 30ML SUSPENSION UDC PO (10:31)
[2017-12-15 14:19] LABS: CLOZAPINE 1 392 ng/mL (350-650); CLOZAPINE 2 136 ng/mL (Not Estab.); CLOZAPINE 3 528 ng/mL (.)
== END 2017-12-14 14:05 | disposition home or self-care (01) | DRG 750 ==
LOC: M PSY 11-20 00:29 → M ED 19:12 → M ED INP 22:15 → M PSY 23:35
DX: F25.1 Schizoaffective disorder, depressive type (principal); F11.10 Opioid abuse, uncomplicated; L73.2 Hidradenitis suppurativa; F17.210 Nicotine dependence, cigarettes, uncomplicated; F12.10 Cannabis abuse, uncomplicated; D64.9 Anemia, unspecified; F70 Mild intellectual disabilities; R11.2 Nausea with vomiting, unspecified; Z88.0 Allergy status to penicillin; Z88.8 Allergy status to other drugs, medicaments and biological substances; Z81.8 Family history of other mental and behavioral disorders; Z79.899 Other long term (current) drug therapy

== ENCOUNTER → 2017-12-18 | Outpatient (REF) | payer OTHER, MEDICAID ==
[2017-12-18 19:09] LABS: ALBUMIN/GLOBULIN RATIO 1.11 (1.00-1.93); ALKALINE PHOSPHATASE 52 U/L (45-117); ALT/SGPT 45 U/L (12-78); ANION GAP 9 MEQ/L (8-16); AST/SGOT 31 U/L (7-37); BILIRUBIN,TOTAL 0.3 MG/DL (0.2-1.0); BLOOD UREA NITROGEN 15 MG/DL (7-18); CARBON DIOXIDE LEVEL 25 MEQ/L (21-32); CHLORIDE LEVEL 107 MEQ/L (98-107); CREATININE FOR GFR 0.83 MG/DL (0.55-1.30); FERRITIN 177 NG/ML (8-252); GLOMERULAR FILTRATION RATE > 60.0 (>60); GLUCOSE, FASTING 110 MG/DL (70-100); IRON (FE) 133 UG/DL (50-170); POTASSIUM SERUM 3.7 MEQ/L (3.5-5.1); SODIUM LEVEL 141 MEQ/L (136-145); THYROID STIMULATING HORMONE < 0.005 uIU/ML (0.358-3.740); TOTAL PROTEIN 7.6 GM/DL (6.4-8.2)
[2017-12-18 19:30] LABS: BASO % 0.2 % (0.0-1.0); EOS # 0.1 10^3/uL (0.0-0.50); EOS % 1.2 % (0.0-3.0); HEMATOCRIT 33.1 % (36.0-47.0); HEMOGLOBIN 10.7 g/dl (12.0-15.5); IMMATURE GRANULOCYTE % 0.3 % (0-3.0); LYMPH # 2.1 10^3/uL (1.5-6.5); LYMPH % 34.8 % (24.0-44.0); MEAN CORPUSCULAR HEMOGLOBIN 30.4 pg (27.0-33.0); MEAN CORPUSCULAR HGB CONC 32.3 g/dl (32.0-36.5); MONO # 0.5 10^3/uL (0.0-0.8); NEUTROPHILS # 3.2 10^3/uL (1.8-7.7); NEUTROPHILS % 54.5 % (36.0-66.0); PLATELET COUNT, AUTOMATED 231 10^3/uL (150-450); RED BLOOD COUNT 3.52 10^6/uL (4.00-5.40); RED CELL DISTRIBUTION WIDTH 13.7 % (11.5-14.5); WHITE BLOOD COUNT 5.9 10^3/uL (4.0-10.0)
== END ==
LOC: M LAB REF 18:19
DX: D64.89 Other specified anemias (principal)
CPT/HCPCS: 83540

== ENCOUNTER → 2017-12-20 | Outpatient (CLI) | payer OTHER, MEDICAID ==
[2017-12-20 10:18] LABS: BASO % 0.4 % (0.0-1.0); EOS # 0.1 10^3/uL (0.0-0.50); EOS % 2.7 % (0.0-3.0); HEMATOCRIT 34.9 % (36.0-47.0); HEMOGLOBIN 11.2 g/dl (12.0-15.5); IMMATURE GRANULOCYTE % 0.4 % (0-3.0); LYMPH # 1.9 10^3/uL (1.5-6.5); LYMPH % 36.9 % (24.0-44.0); MEAN CORPUSCULAR HEMOGLOBIN 30.4 pg (27.0-33.0); MEAN CORPUSCULAR HGB CONC 32.1 g/dl (32.0-36.5); MEAN CORPUSCULAR VOLUME 94.8 fl (80.0-96.0); MONO # 0.5 10^3/uL (0.0-0.8); MONO % 9.6 % (0.0-5.0); NEUTROPHILS # 2.6 10^3/uL (1.8-7.7); PLATELET COUNT, AUTOMATED 229 10^3/uL (150-450); RED BLOOD COUNT 3.68 10^6/uL (4.00-5.40); RED CELL DISTRIBUTION WIDTH 13.7 % (11.5-14.5); WHITE BLOOD COUNT 5.1 10^3/uL (4.0-10.0)
== END ==
LOC: M LAB 09:17
DX: F25.0 Schizoaffective disorder, bipolar type (principal)
CPT/HCPCS: 85025

== ENCOUNTER → 2017-12-26 | Outpatient (CLI) | payer OTHER, MEDICAID ==
[2017-12-26 10:43] LABS: BASO % 0.4 % (0.0-1.0); EOS # 0.2 10^3/uL (0.0-0.50); EOS % 3.3 % (0.0-3.0); HEMATOCRIT 35.2 % (36.0-47.0); HEMOGLOBIN 11.3 g/dl (12.0-15.5); IMMATURE GRANULOCYTE % 0.2 % (0-3.0); LYMPH # 2.1 10^3/uL (1.5-6.5); LYMPH % 43.1 % (24.0-44.0); MEAN CORPUSCULAR HEMOGLOBIN 30.1 pg (27.0-33.0); MEAN CORPUSCULAR HGB CONC 32.1 g/dl (32.0-36.5); MEAN CORPUSCULAR VOLUME 93.9 fl (80.0-96.0); MONO # 0.4 10^3/uL (0.0-0.8); MONO % 8.8 % (0.0-5.0); NEUTROPHILS # 2.1 10^3/uL (1.8-7.7); NEUTROPHILS % 44.2 % (36.0-66.0); PLATELET COUNT, AUTOMATED 283 10^3/uL (150-450); RED BLOOD COUNT 3.75 10^6/uL (4.00-5.40); RED CELL DISTRIBUTION WIDTH 13.7 % (11.5-14.5); WHITE BLOOD COUNT 4.8 10^3/uL (4.0-10.0)
== END ==
LOC: M LAB 10:01
DX: F25.0 Schizoaffective disorder, bipolar type (principal)
CPT/HCPCS: 85025

== ENCOUNTER → 2018-01-03 | Outpatient (CLI) | payer OTHER ==
[2018-01-03 10:02] LABS: BASO % 0.6 % (0.0-1.0); EOS # 0.1 10^3/uL (0.0-0.50); EOS % 2.3 % (0.0-3.0); HEMATOCRIT 36.3 % (36.0-47.0); HEMOGLOBIN 11.7 g/dl (12.0-15.5); IMMATURE GRANULOCYTE % 0.2 % (0-3.0); LYMPH # 2.1 10^3/uL (1.5-6.5); LYMPH % 42.9 % (24.0-44.0); MEAN CORPUSCULAR HEMOGLOBIN 30.1 pg (27.0-33.0); MEAN CORPUSCULAR HGB CONC 32.2 g/dl (32.0-36.5); MEAN CORPUSCULAR VOLUME 93.3 fl (80.0-96.0); MONO # 0.3 10^3/uL (0.0-0.8); MONO % 6.6 % (0.0-5.0); NEUTROPHILS # 2.3 10^3/uL (1.8-7.7); NEUTROPHILS % 47.4 % (36.0-66.0); PLATELET COUNT, AUTOMATED 305 10^3/uL (150-450); RED BLOOD COUNT 3.89 10^6/uL (4.00-5.40); RED CELL DISTRIBUTION WIDTH 13.4 % (11.5-14.5); WHITE BLOOD COUNT 4.8 10^3/uL (4.0-10.0)
== END ==
LOC: M LAB 09:38
DX: F25.0 Schizoaffective disorder, bipolar type (principal)
CPT/HCPCS: 85025

== ENCOUNTER → 2018-01-09 | Outpatient (CLI) | payer OTHER ==
[2018-01-09 14:16] LABS: BASO % 0.4 % (0.0-1.0); EOS # 0.1 10^3/uL (0.0-0.50); EOS % 1.8 % (0.0-3.0); HEMATOCRIT 36.1 % (36.0-47.0); HEMOGLOBIN 11.8 g/dl (12.0-15.5); IMMATURE GRANULOCYTE % 0.2 % (0-3.0); LYMPH # 2.3 10^3/uL (1.5-6.5); MEAN CORPUSCULAR HEMOGLOBIN 30.1 pg (27.0-33.0); MEAN CORPUSCULAR HGB CONC 32.7 g/dl (32.0-36.5); MEAN CORPUSCULAR VOLUME 92.1 fl (80.0-96.0); MONO # 0.3 10^3/uL (0.0-0.8); MONO % 5.3 % (0.0-5.0); NEUTROPHILS # 2.3 10^3/uL (1.8-7.7); NEUTROPHILS % 46.3 % (36.0-66.0); PLATELET COUNT, AUTOMATED 293 10^3/uL (150-450); RED BLOOD COUNT 3.92 10^6/uL (4.00-5.40); RED CELL DISTRIBUTION WIDTH 13.1 % (11.5-14.5); WHITE BLOOD COUNT 4.9 10^3/uL (4.0-10.0)
== END ==
LOC: M LAB 13:08
DX: F25.0 Schizoaffective disorder, bipolar type (principal)
CPT/HCPCS: 85025

== ENCOUNTER → 2018-01-12 | Outpatient (REF) | payer OTHER ==
[2018-01-12 17:53] LABS: FREE T4 1.05 NG/DL (0.76-1.46); THYROID STIMULATING HORMONE 0.014 uIU/ML (0.358-3.740)
[2018-01-16 00:06] LABS: THYROID STIMULATING IMMUNOGLOB <0.10 IU/L (0.00-0.55)
== END ==
LOC: M LABDRAW1 16:59
DX: E05.00 Thyrotoxicosis with diffuse goiter without thyrotoxic crisis or storm (principal)
CPT/HCPCS: 84443

== ENCOUNTER → 2018-01-16 | Outpatient (CLI) | payer OTHER ==
[2018-01-16 10:40] LABS: BASO % 0.3 % (0.0-1.0); EOS # 0.1 10^3/uL (0.0-0.50); EOS % 1.5 % (0.0-3.0); HEMATOCRIT 36.4 % (36.0-47.0); HEMOGLOBIN 11.6 g/dl (12.0-15.5); IMMATURE GRANULOCYTE % 0.3 % (0-3.0); LYMPH # 2.3 10^3/uL (1.5-6.5); LYMPH % 30.6 % (24.0-44.0); MEAN CORPUSCULAR HEMOGLOBIN 29.8 pg (27.0-33.0); MEAN CORPUSCULAR HGB CONC 31.9 g/dl (32.0-36.5); MEAN CORPUSCULAR VOLUME 93.6 fl (80.0-96.0); MONO # 0.7 10^3/uL (0.0-0.8); MONO % 9.1 % (0.0-5.0); NEUTROPHILS # 4.4 10^3/uL (1.8-7.7); NEUTROPHILS % 58.2 % (36.0-66.0); PLATELET COUNT, AUTOMATED 257 10^3/uL (150-450); RED BLOOD COUNT 3.89 10^6/uL (4.00-5.40); RED CELL DISTRIBUTION WIDTH 12.8 % (11.5-14.5); WHITE BLOOD COUNT 7.6 10^3/uL (4.0-10.0)
== END ==
LOC: M LAB 09:44
DX: F25.0 Schizoaffective disorder, bipolar type (principal)
CPT/HCPCS: 85025

== ENCOUNTER → 2018-01-23 | Outpatient (CLI) | payer OTHER ==
[2018-01-23 12:04] LABS: BASO % 0.3 % (0.0-1.0); EOS # 0.1 10^3/uL (0.0-0.50); EOS % 2.4 % (0.0-3.0); HEMATOCRIT 34.5 % (36.0-47.0); HEMOGLOBIN 11.4 g/dl (12.0-15.5); IMMATURE GRANULOCYTE % 0.2 % (0-3.0); LYMPH # 2.3 10^3/uL (1.5-6.5); LYMPH % 39.9 % (24.0-44.0); MEAN CORPUSCULAR VOLUME 90.8 fl (80.0-96.0); MONO # 0.5 10^3/uL (0.0-0.8); MONO % 9.1 % (0.0-5.0); NEUTROPHILS # 2.8 10^3/uL (1.8-7.7); NEUTROPHILS % 48.1 % (36.0-66.0); PLATELET COUNT, AUTOMATED 262 10^3/uL (150-450); RED CELL DISTRIBUTION WIDTH 12.4 % (11.5-14.5); WHITE BLOOD COUNT 5.8 10^3/uL (4.0-10.0)
== END ==
LOC: M LAB 11:03
DX: F25.0 Schizoaffective disorder, bipolar type (principal)
CPT/HCPCS: 85025

== ENCOUNTER → 2018-01-30 | Outpatient (CLI) | payer OTHER ==
[2018-01-30 09:56] LABS: BASO % 0.5 % (0.0-1.0); EOS # 0.2 10^3/uL (0.0-0.50); EOS % 2.7 % (0.0-3.0); HEMATOCRIT 37.2 % (36.0-47.0); HEMOGLOBIN 12.2 g/dl (12.0-15.5); IMMATURE GRANULOCYTE % 0.2 % (0-3.0); LYMPH # 2.4 10^3/uL (1.5-6.5); MEAN CORPUSCULAR HEMOGLOBIN 29.6 pg (27.0-33.0); MEAN CORPUSCULAR HGB CONC 32.8 g/dl (32.0-36.5); MEAN CORPUSCULAR VOLUME 90.3 fl (80.0-96.0); MONO # 0.4 10^3/uL (0.0-0.8); MONO % 6.4 % (0.0-5.0); NEUTROPHILS # 2.7 10^3/uL (1.8-7.7); NEUTROPHILS % 47.2 % (36.0-66.0); PLATELET COUNT, AUTOMATED 292 10^3/uL (150-450); RED BLOOD COUNT 4.12 10^6/uL (4.00-5.40); RED CELL DISTRIBUTION WIDTH 12.4 % (11.5-14.5); WHITE BLOOD COUNT 5.6 10^3/uL (4.0-10.0)
== END ==
LOC: M LAB 09:18
DX: F25.0 Schizoaffective disorder, bipolar type (principal)
CPT/HCPCS: 85025

== ENCOUNTER → 2018-02-06 | Outpatient (CLI) | payer OTHER ==
[2018-02-06 13:53] LABS: BASO % 0.5 % (0.0-1.0); EOS # 0.2 10^3/uL (0.0-0.50); EOS % 2.4 % (0.0-3.0); HEMOGLOBIN 12.1 g/dl (12.0-15.5); IMMATURE GRANULOCYTE % 0.3 % (0-3.0); LYMPH # 2.8 10^3/uL (1.5-6.5); LYMPH % 38.3 % (24.0-44.0); MEAN CORPUSCULAR HEMOGLOBIN 29.4 pg (27.0-33.0); MEAN CORPUSCULAR HGB CONC 31.8 g/dl (32.0-36.5); MEAN CORPUSCULAR VOLUME 92.5 fl (80.0-96.0); MONO # 0.5 10^3/uL (0.0-0.8); MONO % 6.4 % (0.0-5.0); NEUTROPHILS # 3.8 10^3/uL (1.8-7.7); NEUTROPHILS % 52.1 % (36.0-66.0); PLATELET COUNT, AUTOMATED 303 10^3/uL (150-450); RED BLOOD COUNT 4.11 10^6/uL (4.00-5.40); RED CELL DISTRIBUTION WIDTH 12.3 % (11.5-14.5); WHITE BLOOD COUNT 7.4 10^3/uL (4.0-10.0)
== END ==
LOC: M LAB 13:32
DX: F25.0 Schizoaffective disorder, bipolar type (principal)
CPT/HCPCS: 85025

== ENCOUNTER → 2018-02-13 | Outpatient (CLI) | payer OTHER ==
[2018-02-13 11:22] LABS: BASO % 0.4 % (0.0-1.0); EOS # 0.2 10^3/uL (0.0-0.50); EOS % 2.6 % (0.0-3.0); HEMATOCRIT 36.5 % (36.0-47.0); HEMOGLOBIN 11.9 g/dl (12.0-15.5); IMMATURE GRANULOCYTE % 0.2 % (0-3.0); LYMPH # 2.6 10^3/uL (1.5-6.5); LYMPH % 45.7 % (24.0-44.0); MEAN CORPUSCULAR HGB CONC 32.6 g/dl (32.0-36.5); MEAN CORPUSCULAR VOLUME 91.9 fl (80.0-96.0); MONO # 0.3 10^3/uL (0.0-0.8); MONO % 4.9 % (0.0-5.0); NEUTROPHILS # 2.6 10^3/uL (1.8-7.7); NEUTROPHILS % 46.2 % (36.0-66.0); PLATELET COUNT, AUTOMATED 269 10^3/uL (150-450); RED BLOOD COUNT 3.97 10^6/uL (4.00-5.40); RED CELL DISTRIBUTION WIDTH 12.8 % (11.5-14.5); WHITE BLOOD COUNT 5.7 10^3/uL (4.0-10.0)
== END ==
LOC: M LAB 10:36
DX: F25.0 Schizoaffective disorder, bipolar type (principal)
CPT/HCPCS: 85025

== ENCOUNTER → 2018-02-20 | Outpatient (CLI) | payer OTHER ==
[2018-02-20 11:14] LABS: BASO % 0.4 % (0.0-1.0); EOS # 0.2 10^3/uL (0.0-0.50); EOS % 2.8 % (0.0-3.0); HEMATOCRIT 34.6 % (36.0-47.0); IMMATURE GRANULOCYTE % 0.4 % (0-3.0); LYMPH # 2.2 10^3/uL (1.5-6.5); LYMPH % 31.6 % (24.0-44.0); MEAN CORPUSCULAR HEMOGLOBIN 28.9 pg (27.0-33.0); MEAN CORPUSCULAR HGB CONC 31.8 g/dl (32.0-36.5); MEAN CORPUSCULAR VOLUME 90.8 fl (80.0-96.0); MONO # 0.6 10^3/uL (0.0-0.8); MONO % 8.3 % (0.0-5.0); NEUTROPHILS % 56.5 % (36.0-66.0); PLATELET COUNT, AUTOMATED 282 10^3/uL (150-450); RED BLOOD COUNT 3.81 10^6/uL (4.00-5.40); RED CELL DISTRIBUTION WIDTH 12.7 % (11.5-14.5)
== END ==
LOC: M LAB 10:36
DX: F25.0 Schizoaffective disorder, bipolar type (principal)
CPT/HCPCS: 85025

== ENCOUNTER → 2018-02-27 | Outpatient (CLI) | payer OTHER ==
[2018-02-27 12:48] LABS: BASO % 0.4 % (0.0-1.0); EOS # 0.2 10^3/uL (0.0-0.50); EOS % 2.8 % (0.0-3.0); HEMATOCRIT 36.9 % (36.0-47.0); HEMOGLOBIN 11.9 g/dl (12.0-15.5); IMMATURE GRANULOCYTE % 0.3 % (0-3.0); LYMPH # 3.1 10^3/uL (1.5-6.5); LYMPH % 43.2 % (24.0-44.0); MEAN CORPUSCULAR HEMOGLOBIN 28.6 pg (27.0-33.0); MEAN CORPUSCULAR HGB CONC 32.2 g/dl (32.0-36.5); MEAN CORPUSCULAR VOLUME 88.7 fl (80.0-96.0); MONO # 0.8 10^3/uL (0.0-0.8); MONO % 10.5 % (0.0-5.0); NEUTROPHILS % 42.8 % (36.0-66.0); PLATELET COUNT, AUTOMATED 309 10^3/uL (150-450); RED BLOOD COUNT 4.16 10^6/uL (4.00-5.40); RED CELL DISTRIBUTION WIDTH 12.7 % (11.5-14.5); WHITE BLOOD COUNT 7.1 10^3/uL (4.0-10.0)
== END ==
LOC: M LAB 12:01
DX: F25.0 Schizoaffective disorder, bipolar type (principal)
CPT/HCPCS: 85025

== ENCOUNTER → 2018-03-06 | Outpatient (CLI) | payer OTHER ==
[~2018-03-06] MED LIST changes: +ACET1TAB55 PO; +ARIP5TA PO; +BACT800T5 PO; +BENZ-52 PO; +CIPR-249 PO; +CLOZ100T2 PO; +COLA100C5 PO; +DEPA1TAB3 PO; +DEPA250T32 PO; +DEPA500T2 PO; +DIVA250T67 PO; -DIVA500T3 PO; +DIVA500T94 PO; +DOXY100C37 PO; +FERR1TAB8 PO; +FERR325T3 PO; +FLUTISP NARES; +FOLI1TAB5 PO; +GABA-1171 PO; +HALD100I2 IM; +HALO10AM IM; +HALO1TAB29 PO; +HALO20TA PO; +HALO5TA PO; +LITH45TASA PO; +LITH600C PO; +LORA2TAB9 PO; +NALT50TA4 PO; +NICO21DI31 TD; +NICO21PAT TD; +NICO4GUM31 PO; +OLAN15TA PO; -OLAN20TA PO; +OLAN20TA14 PO; +OLAN5TAB PO; +OLAN5ZYD PO; +ONDA4TAB6 PO; +PATIENT COMMENTS; +RISP50INJ; +RISP50INJ IM; +SERT-138 PO; +SERT-155 PO; +SULF1TAB72 PO; +TRAZ-160 PO; +TRAZO50TA PO
[2018-03-06 12:35] LABS: BASO % 0.4 % (0.0-1.0); EOS # 0.2 10^3/uL (0.0-0.50); EOS % 2.9 % (0.0-3.0); HEMATOCRIT 37.3 % (36.0-47.0); HEMOGLOBIN 12.1 g/dl (12.0-15.5); LYMPH # 2.4 10^3/uL (1.5-6.5); LYMPH % 35.6 % (24.0-44.0); MEAN CORPUSCULAR HEMOGLOBIN 29.4 pg (27.0-33.0); MEAN CORPUSCULAR HGB CONC 32.4 g/dl (32.0-36.5); MEAN CORPUSCULAR VOLUME 90.5 fl (80.0-96.0); MONO # 0.4 10^3/uL (0.0-0.8); MONO % 6.3 % (0.0-5.0); NEUTROPHILS # 3.7 10^3/uL (1.8-7.7); NEUTROPHILS % 53.9 % (36.0-66.0); PLATELET COUNT, AUTOMATED 297 10^3/uL (150-450); RED BLOOD COUNT 4.12 10^6/uL (4.00-5.40); WHITE BLOOD COUNT 6.8 10^3/uL (4.0-10.0)
== END ==
LOC: M LAB 11:36
PROVIDERS: ATTEND Registered Nurse Psychiatric/Mental Health
DX: E25.0 Congenital adrenogenital disorders associated with enzyme deficiency (principal)

== ENCOUNTER → 2018-03-16 | Outpatient (CLI) | payer OTHER ==
[~2018-03-16] MED LIST changes: +FOLI1TAB11 PO; -FOLI1TAB5 PO
[2018-03-16 12:50] LABS: BASO % 0.4 % (0.0-1.0); EOS # 0.1 10^3/uL (0.0-0.50); EOS % 2.2 % (0.0-3.0); HEMATOCRIT 38.2 % (36.0-47.0); HEMOGLOBIN 12.4 g/dl (12.0-15.5); LYMPH # 2.1 10^3/uL (1.5-6.5); LYMPH % 42.1 % (24.0-44.0); MEAN CORPUSCULAR HEMOGLOBIN 29.2 pg (27.0-33.0); MEAN CORPUSCULAR HGB CONC 32.5 g/dl (32.0-36.5); MEAN CORPUSCULAR VOLUME 90.1 fl (80.0-96.0); MONO # 0.4 10^3/uL (0.0-0.8); MONO % 7.7 % (0.0-5.0); NEUTROPHILS # 2.4 10^3/uL (1.8-7.7); NEUTROPHILS % 47.4 % (36.0-66.0); PLATELET COUNT, AUTOMATED 293 10^3/uL (150-450); RED BLOOD COUNT 4.24 10^6/uL (4.00-5.40); WHITE BLOOD COUNT 5.1 10^3/uL (4.0-10.0)
== END ==
LOC: M LAB 11:59
PROVIDERS: ATTEND Registered Nurse Psychiatric/Mental Health
DX: F25.0 Schizoaffective disorder, bipolar type (principal)

== ENCOUNTER → 2018-03-27 | Outpatient (CLI) | payer OTHER ==
[~2018-03-27] MED LIST changes: +EXCETAB81 PO
[2018-03-27 14:27] LABS: BASO % 0.5 % (0.0-1.0); EOS # 0.2 10^3/uL (0.0-0.50); EOS % 3.4 % (0.0-3.0); HEMATOCRIT 38.3 % (36.0-47.0); HEMOGLOBIN 12.6 g/dl (12.0-15.5); LYMPH # 2.6 10^3/uL (1.5-6.5); LYMPH % 41.5 % (24.0-44.0); MEAN CORPUSCULAR HEMOGLOBIN 29.6 pg (27.0-33.0); MEAN CORPUSCULAR HGB CONC 32.9 g/dl (32.0-36.5); MEAN CORPUSCULAR VOLUME 89.9 fl (80.0-96.0); MONO # 0.4 10^3/uL (0.0-0.8); MONO % 7.1 % (0.0-5.0); NEUTROPHILS # 2.9 10^3/uL (1.8-7.7); NEUTROPHILS % 47.2 % (36.0-66.0); PLATELET COUNT, AUTOMATED 263 10^3/uL (150-450); RED BLOOD COUNT 4.26 10^6/uL (4.00-5.40); WHITE BLOOD COUNT 6.2 10^3/uL (4.0-10.0)
== END ==
LOC: M LAB 13:44
PROVIDERS: ATTEND Registered Nurse Psychiatric/Mental Health
DX: F25.0 Schizoaffective disorder, bipolar type (principal)

== ENCOUNTER 2018-04-03 15:53 | Emergency (ER) | payer OTHER ==
[~2018-04-03] VITALS: Ht 162.6 cm; Wt 88.2 kg
[~2018-04-03 15:53] MED LIST changes: -EXCETAB81 PO
[2018-04-03] MEDS ORDERED: EXCETAB81 PO (16:34)
[2018-04-03 17:10] LABS: HEMATOCRIT 38.2 % (36.0-47.0); HEMOGLOBIN 12.2 g/dl (12.0-15.5); MEAN CORPUSCULAR HEMOGLOBIN 28.8 pg (27.0-33.0); MEAN CORPUSCULAR HGB CONC 31.9 g/dl (32.0-36.5); MEAN CORPUSCULAR VOLUME 90.3 fl (80.0-96.0); PLATELET COUNT, AUTOMATED 304 10^3/uL (150-450); RED BLOOD COUNT 4.23 10^6/uL (4.00-5.40); WHITE BLOOD COUNT 7.8 10^3/uL (4.0-10.0)
[2018-04-03 17:29] LABS: AMPHETAMINES LEVEL URINE NEGATIVE (NEGATIVE); BARBITURATES URINE NEGATIVE (NEGATIVE); BENZODIAZEPINES URINE NEGATIVE (NEGATIVE); CANNABINOIDS URINE NEGATIVE (NEGATIVE); COCAINE METABOLITE URINE NEGATIVE (NEGATIVE); METHADONE URINE NEGATIVE (NEGATIVE); OPIATES URINE NEGATIVE (NEGATIVE); PHENCYCLIDINE URINE NEGATIVE (NEGATIVE)
[2018-04-03 17:41] LABS: ACETAMINOPHEN LEVEL < 2.0 UG/ML (10.0-30.0); ALBUMIN 3.6 GM/DL (3.2-5.2); ALT/SGPT 38 U/L (12-78); BILIRUBIN,DIRECT < 0.1 MG/DL (0.0-0.2); BILIRUBIN,TOTAL 0.2 MG/DL (0.2-1.0); BLOOD UREA NITROGEN 9 MG/DL (7-18); CALCIUM LEVEL 8.8 MG/DL (8.5-10.1); CARBON DIOXIDE LEVEL 27 MEQ/L (21-32); CHLORIDE LEVEL 105 MEQ/L (98-107); CREATININE FOR GFR 0.61 MG/DL (0.55-1.30); ETHYL ALCOHOL (ETHANOL) < 0.003 % (0.000-0.010); GLOMERULAR FILTRATION RATE > 60.0 (>60); GLUCOSE, FASTING 97 MG/DL (70-100); POTASSIUM SERUM 4.2 MEQ/L (3.5-5.1); SALICYLATE LEVEL < 1.7 MG/DL (5.0-30.0); SODIUM LEVEL 141 MEQ/L (136-145); THYROID STIMULATING HORMONE 0.812 uIU/ML (0.358-3.740); TOTAL PROTEIN 7.7 GM/DL (6.4-8.2)
[2018-04-03] MEDS ORDERED: ALPRAZolam 0.5 MG TAB PO ONE (19:30)
[2018-04-03] MEDS ORDERED: IBUPROFEN 600 MG TAB PO ONE (19:30)
[2018-04-04 04:01] VITALS: BP 110/50
== END 2018-04-04 04:06 | disposition short-term general hospital (02) ==
LOC: M ED 15:53
DX: F29 Unspecified psychosis not due to a substance or known physiological condition (principal); F32.9 Major depressive disorder, single episode, unspecified; F41.9 Anxiety disorder, unspecified; F17.200 Nicotine dependence, unspecified, uncomplicated; Z88.0 Allergy status to penicillin; Z88.8 Allergy status to other drugs, medicaments and biological substances; Z79.899 Other long term (current) drug therapy
CPT/HCPCS: 36415; 80048; 80076; 80307; 84443; 85027; 99285; G0480

== ENCOUNTER → 2018-04-23 | Outpatient (CLI) | payer OTHER ==
[~2018-04-23] MED LIST changes: +EXCETAB81 PO
[2018-04-23 14:29] LABS: BASO % 0.6 % (0.0-1.0); EOS # 0.3 10^3/uL (0.0-0.50); EOS % 3.7 % (0.0-3.0); HEMATOCRIT 35.3 % (36.0-47.0); HEMOGLOBIN 11.3 g/dl (12.0-15.5); LYMPH # 2.4 10^3/uL (1.5-6.5); LYMPH % 33.8 % (24.0-44.0); MEAN CORPUSCULAR HEMOGLOBIN 28.9 pg (27.0-33.0); MEAN CORPUSCULAR VOLUME 90.3 fl (80.0-96.0); MONO # 0.7 10^3/uL (0.0-0.8); MONO % 9.2 % (0.0-5.0); NEUTROPHILS # 3.6 10^3/uL (1.8-7.7); NEUTROPHILS % 51.7 % (36.0-66.0); PLATELET COUNT, AUTOMATED 313 10^3/uL (150-450); RED BLOOD COUNT 3.91 10^6/uL (4.00-5.40)
== END ==
LOC: M LAB 13:18
PROVIDERS: ATTEND Registered Nurse Psychiatric/Mental Health
DX: F25.0 Schizoaffective disorder, bipolar type (principal)

== ENCOUNTER 2018-05-02 15:54 | Inpatient (IN) | payer MEDICAID, OTHER ==
[~2018-05-02] VITALS: Ht 162.6 cm; Wt 92.5 kg
[2018-05-02 16:35] LABS: HEMATOCRIT 34.5 % (36.0-47.0); HEMOGLOBIN 11.3 g/dl (12.0-15.5); MEAN CORPUSCULAR HEMOGLOBIN 28.9 pg (27.0-33.0); MEAN CORPUSCULAR HGB CONC 32.8 g/dl (32.0-36.5); MEAN CORPUSCULAR VOLUME 88.2 fl (80.0-96.0); PLATELET COUNT, AUTOMATED 297 10^3/uL (150-450); RED BLOOD COUNT 3.91 10^6/uL (4.00-5.40)
[2018-05-02 16:55] LABS: AMPHETAMINES LEVEL URINE NEGATIVE (NEGATIVE); BARBITURATES URINE NEGATIVE (NEGATIVE); BENZODIAZEPINES URINE NEGATIVE (NEGATIVE); CANNABINOIDS URINE NEGATIVE (NEGATIVE); COCAINE METABOLITE URINE NEGATIVE (NEGATIVE); METHADONE URINE NEGATIVE (NEGATIVE); OPIATES URINE NEGATIVE (NEGATIVE); PHENCYCLIDINE URINE NEGATIVE (NEGATIVE)
[2018-05-02 16:57] LABS: HCG, SERUM QUALITATIVE NEGATIVE (NEGATIVE)
[2018-05-02 17:08] LABS: ACETAMINOPHEN LEVEL < 2.0 UG/ML (10.0-30.0); ALT/SGPT 34 U/L (12-78); BILIRUBIN,DIRECT < 0.1 MG/DL (0.0-0.2); BILIRUBIN,TOTAL 0.1 MG/DL (0.2-1.0); BLOOD UREA NITROGEN 13 MG/DL (7-18); CALCIUM LEVEL 8.8 MG/DL (8.5-10.1); CARBON DIOXIDE LEVEL 26 MEQ/L (21-32); CHLORIDE LEVEL 106 MEQ/L (98-107); CREATININE FOR GFR 0.55 MG/DL (0.55-1.30); ETHYL ALCOHOL (ETHANOL) < 0.003 % (0.000-0.010); GLOMERULAR FILTRATION RATE > 60.0 (>60); GLUCOSE, FASTING 83 MG/DL (70-100); SALICYLATE LEVEL 1.7 MG/DL (5.0-30.0); SODIUM LEVEL 139 MEQ/L (136-145); THYROID STIMULATING HORMONE 0.685 uIU/ML (0.358-3.740); TOTAL PROTEIN 7.9 GM/DL (6.4-8.2)
[2018-05-02] MEDS ORDERED: LORazepam 2 MG TAB PO STA (18:25)
[2018-05-02] MEDS ORDERED: MOM 30ML SUSPENSION UDC PO PRN (19:00)
[2018-05-02] MEDS ORDERED: MAALOX 30 ML SUSP *UDC PO PRN (19:00)
[2018-05-02] MEDS ORDERED: ACETAMINOPHEN TAB 650MG DOSE (2X325MG) PO PRN (19:00)
[2018-05-02] MEDS ORDERED: CLOZ100T2 PO (19:51)
[2018-05-02] MEDS ORDERED: COLA100C5 PO (19:52)
[2018-05-02] MEDS ORDERED: HALO10AM IM (19:55)
[2018-05-02] MEDS ORDERED: ZOLO100T PO (19:55)
[2018-05-02] MEDS ORDERED: CEFU50TA PO (19:57)
[2018-05-02] MEDS ORDERED: IBUP200C25 PO (19:58)
[2018-05-02 21:30] VITALS: BP 126/81
[2018-05-02] MEDS: CEFUROXIME 500 MG TAB PO SCH (22:04)
[2018-05-02] MEDS: traZODone 50 MG TAB PO PRN (22:04)
[2018-05-02] MEDS: cloZAPine 100 MG TAB (S0136) PO SCH (22:04)
[2018-05-03] MEDS ORDERED: NICOTINE 21MG/24HR 1 EA TRANSDERMAL TD PRN (06:00)
[2018-05-03 06:39] VITALS: BP 110/58
[2018-05-03] MEDS: FOLIC ACID 1 MG TAB PO SCH (09:51)
[2018-05-03] MEDS: FERROUS SULFATE 325MG TAB PO SCH (09:51)
[2018-05-03] MEDS: DOCUSATE SODIUM 100 MG CAP PO SCH (09:51)
[2018-05-03] MEDS: SERTRALINE 100 MG TAB PO SCH (09:51)
--- NOTE | 2018-05-03 10:58 | HPEPDOC ---
[facility] Medical History & Physical Date of Admission May 02, 2018 History and Physical PCP: Yosef Dalton MD ATTENDING: Dr. Braxton Willett HPI: 28 yoF admitted to [facility] for unspecified psychosis, being medically examined today. Patient provides very limited history, much is taken from chart. Short 1-2 word answers. As per the patient's medication list she was started on Ceftin 04/24/18 for 10 days. She does not recall why she is taking this. She has no complaints or concerns at this time. She does not recall any recent illnesses. Denies any fevers, chills, weakness, fatigue, MURO, CP, SOB, cough, abdominal pain, N/V/D or changes in bowel or bladder habits. PAST MEDICAL HISTORY: Schizophrenia schizoaffective disorder Bipolar Disorder. PTSD hidradenitis suppurativa H/O somatic seizure PAST SURGICAL HISTORY: denies SOCHX: Resides in: [facility] Marital Status: Kids: 1 Employment: unemployed Tobacco use: 5 per day ETOH: denies Illicit Drugs: Denies IV Drug Use: Denies Tattoos done unprofessionally: Denies FAMHX: Mother: Alive, unknown Father: Alive, unknown Siblings: 3 sisters, one brother Alive. 1 sister who is apparently with [facility]. Children: Alive, well ROS: As noted in HPI, otherwise 11pt ROS of systems reviewed and remarkable only for LMP unknown per pt. PE: GEN: 28 yo F, appears stated age. Anxious during exam. Alert and oriented. HEENT: Normocephalic, atraumatic. Pupils are equal, round, and reactive to light. Extraocular movements are intact. No nystagmus appreciated. Sclera are nonicteric. Conjunctiva without injection. Nose midline. Nasal turbinates without bogginess. EACs both patent BL. TMs both visualized and brewer with good cone of light, no bulging or erythema. No facial asymmetry. Moist mucous membranes. Dentition fair. Pharynx pink and moist, no cobblestoning. Neck supple, trachea midline. No lymphadenopathy or thyromegaly appreciated. CHEST: Regular rate and rhythm, +S1, +S2 LUNGS: Clear to auscultation bilaterally. No wheezes, rales, or rhonchi. Breathi ng appears symmetric and easy. Patient is speaking in full sentences. No accessory muscle use. ABD: Round, soft, mild TTP suprapubic area, non-distended. +Bowel sounds throughout. No rebound or guarding. No costovertebral angle tenderness. EXT: Pulses 2+ bilaterally dorsalis pedis and radial. No lower extremity edema appreciated. SKIN: [place], dry, warm. No skin lesions. NEURO: No focal deficits appreciated. EKG SINUS RHYTHM NONSPECIFIC T-WAVE ABNORMALITY DECREASED RATE 09/05/17 Electronically Signed On 09-10-2017 20:54:59 EDT by Rosemary Osborn DD: Rosemary Osborn MD 09/10/17 1330 Assessment/plan. 28 yoF admitted to [facility] for unspecified psychosis 1. Psych. Management as per psychiatry. EKG on file. 2. Chronic anemia. Appears to be at baseline. Remains on iron and folic acid supplements. 3. Possible recent URI. Patient will finish course of Ceftin. According to her outpatient medication list Ceftin 500 mg every 12 hours was started 04/24/18 for 10 days. Patient is currently asymptomatic. Patient is afebrile. Monitor. 4. Staff member Tere present throughout exam. Vital Signs Vital Signs Date Time Temp Pulse Resp B/P (MAP) Pulse Ox O2 Delivery O2 Flow Rate FiO2 05/03/18 06:39 98.7 91 14 110/58 (75) 05/02/18 21:30 98 05/02/18 20:25 Room Air Laboratory Data Labs 24H Laboratory Tests 2 05/02/18 16:17: Nucleated Red Blood Cells % (auto) 0.0, Anion Gap 7L, Glomerular Filtration Rate > 60.0, Calcium Level 8.8, Aspartate Amino Transf (AST/SGOT) 24, Alanine Aminotransferase (ALT/SGPT) 34, Alkaline Phosphatase 63, Total Bilirubin 0.1L, D irect Bilirubin < 0.1, Total Protein 7.9, Albumin 4.0, Albumin/Globulin Ratio 1.03, Thyroid Stimulating Hormone (TSH) 0.685, Human Chorionic Gonadotropin, Qual NEGATIVE, Salicylates Level 1.7L, Urine Amphetamines Screen NEGATIVE, Urine Benzodiazepines Screen NEGATIVE, Urine Opiates Screen NEGATIVE, Urine Methadone Screen NEGATIVE, Acetaminophen Level < 2.0L, Urine Barbiturates Screen NEGATIVE, Urine Phencyclidine Screen NEGATIVE, Urine Cocaine Metabolite Screen NEGATIVE, Urine Cannabinoids Screen NEGATIVE, Ethyl Alcohol Level < 0.003 CBC/BMP Laboratory Tests 05/02/18 16:17 Red Blood Count 3.91 L, Mean Corpuscular Volume 88.2, Mean Corpuscular Hemoglobin 28.9, Mean Corpuscular Hemoglobin Concent 32.8, Red Cell Distribution Width 13.9 Home Medications Scheduled Cefuroxime Axetil (Ceftin) 500 Mg Tab, 500 MG PO Q12H x 10 DAYS. STARTED ON 04/24/18 Clozapine (Clozapine) 100 Mg Tab, 300 MG PO QHS Docusate Sodium (Colace) 100 Mg Cap, 100 MG PO DAILY Ferrous Sulfate (Ferrous Sulfate) 325 Mg Tab, 325 MG PO QAM Folic Acid (Folic Acid) 1 Mg Tab, 1 MG PO DAILY Haloperidol Decanoate (Haloperidol Decanoate) 100 Mg/Ml Soln, 100 MG IM QMONTH Sertraline Hcl (Zoloft) 100 Mg Tab, 100 MG PO DAILY Scheduled PRN Acetaminophen (Acetaminophen) 325 Mg Tab, 650 MG PO Q6H PRN for PAIN Ibuprofen (Ibuprofen) 200 Mg Cap, 200 MG PO Q6H PRN for PAIN Allergies Coded Allergies: Penicillins (Verified Allergy, Unknown, 06/19/12) Paliperidone (Verified Adverse Reaction, Unknown, Drooling, 09/18/17) Kathie Dumont May 03, 2018 10:58
[2018-05-03] MEDS: CEFUROXIME 500 MG TAB PO SCH ×2 (13:02→21:09)
[2018-05-03 18:00] VITALS: BP 140/82
[2018-05-03] MEDS: cloZAPine 100 MG TAB (S0136) PO SCH (21:09)
[2018-05-03] MEDS: traZODone 50 MG TAB PO PRN (21:50)
[2018-05-04 06:22] VITALS: BP 115/59
[2018-05-04] MEDS: DOCUSATE SODIUM 100 MG CAP PO SCH (09:33)
[2018-05-04] MEDS: SERTRALINE 100 MG TAB PO SCH (09:33)
[2018-05-04] MEDS: CEFUROXIME 500 MG TAB PO SCH (09:33)
[2018-05-04] MEDS: FOLIC ACID 1 MG TAB PO SCH (09:33)
[2018-05-04] MEDS: FERROUS SULFATE 325MG TAB PO SCH (09:33)
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
[2018-05-04 18:31] VITALS: BP 138/80
--- NOTE | 2018-05-04 18:50 | MHIPNPDOC ---
[facility] Progress Note Progress Note DATE OF SERVICE: 05/04/18 HISTORY:.CHIEF COMPLAINT: Auditory hallucinations and suicidal ideation. HISTORY OF PRESENT ILLNESS: Patient is a 28-year-old female, who as per ED report: "Pt presented to ER with CM from [facility] after expressing SI with plan to cut self. Hx of past attempts at self-harm including OD and self- mutilation. Pt expresses fear of her roommate because the roommate talks to herself and says strange things. Pt also upset about not seeing her son, who is in the custody of his father at this time. Pt says she has been hearing voices that tell her to kill herself. She was in tx at [facility] but stopped going 3-4 months ago and claims she no longer drinks alcohol. Pt continues to express suicidal thoughts." VITAL SIGNS: See below. NEW TEST RESULTS: see below CURRENT MEDICATIONS: See below. MENTAL STATUS EXAMINATION: Patient is a 28 year old female, who is alert, cooperative, dressed in personal clothes. Speech: Is spontaneous and fluent, normal rate and tone, low volume. Language skills are good. Thought processes including: linear, coherent. Thought content: goal orientated but she has anxious thoughts about going to her house and dealing with her roommate who stresses her out.. Description of abnormal or psychotic thoughts: Denies SI, denies HI, denies AV hallucinations, denies delusions Judgment: fair Insight: fair Orientation: x 3. Recent and remote memory: improved, compared to previous admissions. Attention span and concentration: good. Mood: euthymic Affect: congruent with mood, full, reactive, appropriate. DIAGNOSES: 1. Schizoaffective disorder ASSESSMENT: Patient is doing well, her TSH has normalized and maybe this has something to to with her improvement. However, if she continues to be subjected to the stress her roommate causes, she might end up decompensating once again. MANAGEMENT PLAN: Pending housing arrangements, for her to go live at a different unit, where she can be alone TIME SPENT: 15 minutes. Vital Signs Vital Signs Date Time Temp Pulse Resp B/P (MAP) Pulse Ox O2 Delivery O2 Flow Rate FiO2 05/04/18 06:22 98.6 92 18 115/59 (77) 05/02/18 21:30 98 05/02/18 20:25 Room Air Current Medications Current Medications Acetaminophen (Tylenol Tab) 650 mg Q6HP PRN PO HEADACHE or DISCOMFORT; Start 05/02/18 at 19:00 Al Hydrox/Mg Hydrox/Simethicone (Mylanta) 30 ml Q4HP PRN PO HEARTBURN/INDIGESTION; Start 05/02/18 at 19:00 Cefuroxime Axetil (Ceftin) 500 mg Q12H PO Last administered on 05/04/18 09:33; Start 05/02/18 at 22:00 Clozapine (Clozaril) 300 mg QHS PO Last administered on 05/03/18at 21:09; Start 05/02/18 at 21:28 Docusate Sodium (Colace) 100 mg DAILY PO Last administered on 05/04/18 09:33; Start 05/03/18 at 09:00 Ferrous Sulfate (Ferrous Sulfate) 325 mg QAM PO Last administered on 05/04/18 09:33; Start 05/03/18 at 09:00 Folic Acid (Folic Acid) 1 mg DAILY PO Last administered on 05/04/18 09:33; Start 05/03/18 at 09:00 Haloperidol Decanoate (Haldol Decanoate) 100 mg Q30D IM ; Start 05/11/18 at 09:00; Stop 05/11/18 at 09:00; Status DC Haloperidol Decanoate (Haldol Decanoate) 100 mg Q30D IM ; Start 05/11/18 at 09:00 Home Med (Med Rec Complete!) ASDIRECTED XX ; Start 05/02/18 at 20:00; Stop at 20:00; Status DC Ibuprofen (Advil) 200 mg Q6H PRN PO PAIN; Start 05/02/18 at 21:30 Lorazepam (Ativan) 2 mg STAT STAT PO Last administered on 05/02/18at 18:42; Start 05/02/18 at 18:25; Stop 05/02/18 at 18:30; Status DC Magnesium Hydroxide (Milk Of Magnesia) 30 ml DAILYPRN PRN PO CONSTIPATION; Start 05/02/18 at 19:00 Nicotine (Nicoderm Cq 21mg) 1 patch DAILYPRN PRN TD NICOTINE WITHDRAWAL; Start 05/03/18 at 06:00 Sertraline HCl (Zoloft) 100 mg DAILY PO Last administered on 2/15/19at 09:33; Start 05/03/18 at 09:00 Trazodone HCl (Desyrel) 50 mg QHSP PRN PO INSOMNIA Last administered on 05/03/18at 21:50; Start 05/02/18 at 19:00 Allergies Coded Allergies: Penicillins (Verified Allergy, Unknown, 06/19/12) Paliperidone (Verified Adverse Reaction, Unknown, Drooling, 09/18/17) ANDREA BARFIELD MD May 04, 2018 17:05
[2018-05-04] MEDS ORDERED: diphenhydrAMINE 50 MG CAP PO STA (19:40)
[2018-05-04] MEDS: cloZAPine 100 MG TAB (S0136) PO SCH (19:53)
[2018-05-04] MEDS: traZODone 50 MG TAB PO PRN (20:06)
[2018-05-05 06:35] VITALS: BP 126/60
[2018-05-05] MEDS: SERTRALINE 100 MG TAB PO SCH (09:02)
[2018-05-05] MEDS: FOLIC ACID 1 MG TAB PO SCH (09:02)
[2018-05-05] MEDS: FERROUS SULFATE 325MG TAB PO SCH (09:02)
[2018-05-05] MEDS: DOCUSATE SODIUM 100 MG CAP PO SCH (09:02)
[2018-05-05 18:00] VITALS: BP 146/84
[2018-05-05] MEDS: IBUPROFEN 200 MG TAB PO PRN (19:52)
[2018-05-05] MEDS: traZODone 50 MG TAB PO PRN (20:27)
[2018-05-05] MEDS: cloZAPine 100 MG TAB (S0136) PO SCH (20:28)
[2018-05-06 06:48] VITALS: BP 100/56
[2018-05-06] MEDS: FERROUS SULFATE 325MG TAB PO SCH (09:40)
[2018-05-06] MEDS: FOLIC ACID 1 MG TAB PO SCH (09:40)
[2018-05-06] MEDS: DOCUSATE SODIUM 100 MG CAP PO SCH (09:40)
[2018-05-06] MEDS: SERTRALINE 100 MG TAB PO SCH (09:40)
[2018-05-06 18:00] VITALS: BP 152/71
[2018-05-06] MEDS ORDERED: diphenhydrAMINE CREAM 30GM TOP PRN (18:45)
[2018-05-06] MEDS: LANOLIN HYDROUS OINT 30GM TUBE TOP SCH (21:00)
[2018-05-06] MEDS: cloZAPine 100 MG TAB (S0136) PO SCH (21:34)
[2018-05-06] MEDS: IBUPROFEN 200 MG TAB PO PRN (21:34)
[2018-05-06] MEDS: traZODone 50 MG TAB PO PRN (21:34)
[2018-05-07 07:19] VITALS: BP 117/69
[2018-05-07] MEDS: LANOLIN HYDROUS OINT 30GM TUBE TOP SCH (08:30)
[2018-05-07] MEDS: SERTRALINE 100 MG TAB PO SCH (08:31)
[2018-05-07] MEDS: FERROUS SULFATE 325MG TAB PO SCH (08:31)
[2018-05-07] MEDS: FOLIC ACID 1 MG TAB PO SCH (08:31)
[2018-05-07] MEDS: DOCUSATE SODIUM 100 MG CAP PO SCH (08:31)
[2018-05-07] MEDS ORDERED: TRAZO50TA PO (09:45)
[2018-05-07] MEDS ORDERED: NICO21PAT TD (09:45)
--- NOTE | 2018-05-07 22:55 | MHDSPDOC ---
[facility] Discharge Summary Discharge Summary DATE OF ADMISSION: May 02, 2018 at 18:58 DATE OF DISCHARGE: May 07, 2018 at 11:45 DISCHARGE DIAGNOSES: 1. Schizoaffective disorder REASON FOR ADMISSION: CHIEF COMPLAINT: Auditory hallucinations and suicidal ideation. HISTORY OF PRESENT ILLNESS: Patient is a 28-year-old female, who as per ED report: "Pt presented to ER with CM from [facility] after expressing SI with plan to cut self. Hx of past attempts at self-harm including OD and self- mutilation. Pt expresses fear of her roommate because the roommate talks to herself and says strange things. Pt also upset about not seeing her son, who is in the custody of his father at this time. Pt says she has been hearing voices that tell her to kill herself. She was in tx at [facility] but stopped going 3-4 months ago and claims she no longer drinks alcohol. Pt continues to express suicidal thoughts." CONSULTANTS INVOLVED: None TREATMENT AND PROGRESS ON THE UNIT : Upon initial evaluation the patient was observed to be calm, pleasant and cooperative. She was not psychotic and she was not extremely depressed or anxious as she has been on previous presentations. This time she was anxious and she has felt overwhelmed and for that reason she had resented with suicidal thoughts because she has not been sleeping well and she had not been feeling well because she has a roommate that doesn't sleep and doesn't let the patient's sleep. The roommate talks to herself, wanders around the apartment, is restless and sometimes Sang loud. Mrs. Cruz felt intimidated by this other person and was scared of going to sleep. She was feeling unsafe at her place and we thought that it would be important for her to contact [facility] so that they would take her to another unit where she could be by herself or with another patient but somebody stable because otherwise he could become extremely anxious again. While at the inpatient mental health unit, the patient was able to calm down, she felt safe, was able to sleep well, has good appetite. She never expressed suicidal or homicidal ideation and she denied experiencing hallucinations or thought delusions. She was able to be discharged because [facility] made arrangements so that she wouldn't have to share her apartment. HOSPITAL COURSE: As above DISCHARGE ASSESSMENT: At the time of her discharge patient was not homicidal, not suicidal and not psychotic.. MENTAL STATUS EXAMINATION ON DISCHARGE: Patient is a 28 year old female, who is alert, cooperative, dressed in personal clothes. Speech: Is spontaneous and fluent, normal rate and tone, low volume. Language skills are good. Thought processes including: linear, coherent. Thought content: goal orientated but she has anxious thoughts about going to her house and dealing with her roommate who stresses her out.. Description of abnormal or psychotic thoughts: Denies SI, denies HI, denies AV hallucinations, denies delusions Judgment: fair Insight: fair Orientation: x 3. Recent and remote memory: improved, compared to previous admissions. Attention span and concentration: good. Mood: euthymic Affect: congruent with mood, full, reactive, appropriate. DIAGNOSES: 1. Schizoaffective disorder MEDICATIONS ON DISCHARGE: Scheduled Clozapine (Clozapine) 100 Mg Tab, 300 MG PO QHS, (Reported) Docusate Sodium (Colace) 100 Mg Cap, 100 MG PO DAILY, (Reported) Ferrous Sulfate (Ferrous Sulfate) 325 Mg Tab, 325 MG PO QAM, (Reported) Folic Acid (Folic Acid) 1 Mg Tab, 1 MG PO DAILY, (Reported) Haloperidol Decanoate (Haloperidol Decanoate) 100 Mg/Ml Soln, 100 MG IM QMONTH, (Reported) Sertraline Hcl (Zoloft) 100 Mg Tab, 100 MG PO DAILY, (Reported) Scheduled PRN Acetaminophen (Acetaminophen) 325 Mg Tab, 650 MG PO Q6H PRN for PAIN, (Reported) Ibuprofen (Ibuprofen) 200 Mg Cap, 200 MG PO Q6H PRN for PAIN, (Reported) Nicotine (Nicotine Transdermal Syst) 21 Mg/24 Hr Dis, 1 PATCH TD DAILYPRN PRN for NICOTINE WITHDRAWAL, #7 Trazodone HCl (Trazodone HCl) 50 Mg Tab, 50 MG PO QHSP PRN for INSOMNIA, #7 PLAN/FOLLOWUP ARRANGEMENTS: Follow Up Care Education Label * Medical * Medical Follow Up [facility]: DR. ROLLY ARRIAGA * Established With This Provider Yes * Therapist DR. ARRIAGA * Date May 18, 2018 * Time 15:00 * Address of Clinic or Practice [address] [place] [address] * Follow Up Care Education Label * Mental Health Appt 1 * Mental Health [facility] * Established With This Provider Yes * Therapist URI * Date May 11, 2018 * Time 13:00 * Address of Clinic or Practice [address] [place] [address] * Follow Up Care Education Label * Mental Health Appt 2 * [facility] * Established With This Provider Yes * Therapist CAROLANN * Date Jun 14, 2018 * Time 14:00 * Address of Clinic or Practice [address] [place] [address] * Follow Up Care Education Label * Mental Health Appt 3 * [facility] * Established With This Provider Yes * Therapist CHEYENNE * Date May 22, 2018 * Time 11:30 * Address of Clinic or Practice [address] [place] [address] * * Additional information Per Cheyenne @ [facility], patient had her last Haloperidol injection on 04/24/18, not 04/10/18. Therefore, patient is not due for the next injection until May 22, which is what is reflected in the above appointment. Thank you. The amount of time spent in the coordination of care for this patient was approximately 30 minutes. Vital Signs/I&Os Vital Signs Date Time Temp Pulse Resp B/P (MAP) Pulse Ox O2 Delivery O2 Flow Rate FiO2 05/07/18 07:19 96.1 86 12 117/69 (85) 05/02/18 21:30 98 05/02/18 20:25 Room Air Medications Scheduled Clozapine (Clozapine) 100 Mg Tab, 300 MG PO QHS, (Reported) Docusate Sodium (Colace) 100 Mg Cap, 100 MG PO DAILY, (Reported) Ferrous Sulfate (Ferrous Sulfate) 325 Mg Tab, 325 MG PO QAM, (Reported) Folic Acid (Folic Acid) 1 Mg Tab, 1 MG PO DAILY, (Reported) Haloperidol Decanoate (Haloperidol Decanoate) 100 Mg/Ml Soln, 100 MG IM QMONTH, (Reported) Sertraline Hcl (Zoloft) 100 Mg Tab, 100 MG PO DAILY, (Reported) Scheduled PRN Acetaminophen (Acetaminophen) 325 Mg Tab, 650 MG PO Q6H PRN for PAIN, (Reported) Ibuprofen (Ibuprofen) 200 Mg Cap, 200 MG PO Q6H PRN for PAIN, (Reported) Nicotine (Nicotine Transdermal Syst) 21 Mg/24 Hr Dis, 1 PATCH TD DAILYPRN PRN for NICOTINE WITHDRAWAL, #7 Trazodone HCl (Trazodone HCl) 50 Mg Tab, 50 MG PO QHSP PRN for INSOMNIA, #7 Allergies Coded Allergies: Penicillins (Verified Allergy, Unknown, 06/19/12) Paliperidone (Verified Adverse Reaction, Unknown, Drooling, 09/18/17) ANDREA BARFIELD MD May 07, 2018 22:46
--- NOTE | 2018-05-08 10:16 | MHIPN ---
DATE: 05/06/2018 The patient today states that she is feeling good. She has no complaints. She says that she is sleeping good with the trazodone. She is not suicidal or homicidal. MENTAL STATUS EXAMINATION: She is alert and oriented times three. Eye contact is fair. Psychomotor activity is normal. She responds with simple one or two word answers but they are appropriate. She says her mood is "good." Affect is constricted but appropriate to her mood. She is not psychotic. She is not suicidal or homicidal. Concentration is fair. Memory intact. Insight and judgment fair. DIAGNOSIS: 1. Schizoaffective disorder. TREATMENT PLAN: At this point, we will continue to monitor the patient for continued elevation and stabilization of her mood and continued resolution of suicidal ideation.
--- NOTE | 2018-05-08 10:23 | MHIPN ---
DATE OF SERVICE: 05/05/2018 The patient today states "I'm doing okay." She said she slept good. I am not eliciting any psychotic symptoms today. MENTAL STATUS EXAMINATION: The patient is alert and oriented times three. Eye contact is fairly good. She verbally spontaneous. There is no formal thought disorder. She says her mood is "okay." Affect is constricted but appropriate to her mood. She is not psychotic. She denies suicidal or homicidal ideations. Concentration is fair. Memory is fair. Insight and judgment fair. DIAGNOSES: Schizoaffective disorder. TREATMENT PLAN: We will continue to monitor the patient for continued elevation and stabilization of her mood and continue resolution of suicidal ideations, and we will titrate the medication as indicated. RICK
[2018-05-11] MEDS ORDERED: HALOPERIDOL DECANOATE 100 MG/ML VIAL (J1631) IM SCH ×2 (09:00)
== END 2018-05-07 11:45 | disposition home or self-care (01) | DRG 750 ==
LOC: M ED 15:54 → M ED INP 18:58 → M PSY 20:30
PROVIDERS: ADMIT Psychiatry & Neurology Psychiatry; ATTEND Psychiatry & Neurology Psychiatry
DX: F25.9 Schizoaffective disorder, unspecified (principal); D64.9 Anemia, unspecified; F41.9 Anxiety disorder, unspecified; Z79.899 Other long term (current) drug therapy; Z88.0 Allergy status to penicillin; Z88.8 Allergy status to other drugs, medicaments and biological substances; F17.200 Nicotine dependence, unspecified, uncomplicated

== ENCOUNTER → 2018-05-23 | Outpatient (CLI) | payer MEDICAID ==
[~2018-05-23] MED LIST changes: +CEFU50TA PO; +IBUP200C25 PO; +ZOLO100T PO
[2018-05-23 13:51] LABS: BASO % 0.5 % (0.0-1.0); EOS # 0.2 10^3/uL (0.0-0.50); EOS % 4.1 % (0.0-3.0); HEMOGLOBIN 11.5 g/dl (12.0-15.5); LYMPH # 2.6 10^3/uL (1.5-6.5); LYMPH % 44.1 % (24.0-44.0); MEAN CORPUSCULAR HEMOGLOBIN 29.5 pg (27.0-33.0); MEAN CORPUSCULAR HGB CONC 32.9 g/dl (32.0-36.5); MEAN CORPUSCULAR VOLUME 89.7 fl (80.0-96.0); MONO # 0.6 10^3/uL (0.0-0.8); MONO % 9.7 % (0.0-5.0); NEUTROPHILS # 2.4 10^3/uL (1.8-7.7); NEUTROPHILS % 41.3 % (36.0-66.0); PLATELET COUNT, AUTOMATED 283 10^3/uL (150-450); WHITE BLOOD COUNT 5.9 10^3/uL (4.0-10.0)
== END ==
LOC: M LAB 12:58
PROVIDERS: ATTEND Registered Nurse Psychiatric/Mental Health
DX: E25.0 Congenital adrenogenital disorders associated with enzyme deficiency (principal)

== ENCOUNTER → 2018-05-29 | Outpatient (CLI) | payer MEDICAID ==
[2018-05-29 19:22] LABS: BASO % 0.3 % (0.0-1.0); EOS # 0.2 10^3/uL (0.0-0.50); EOS % 2.6 % (0.0-3.0); HEMATOCRIT 33.5 % (36.0-47.0); HEMOGLOBIN 10.9 g/dl (12.0-15.5); LYMPH # 2.8 10^3/uL (1.5-6.5); LYMPH % 30.5 % (24.0-44.0); MEAN CORPUSCULAR HGB CONC 32.5 g/dl (32.0-36.5); MEAN CORPUSCULAR VOLUME 89.1 fl (80.0-96.0); MONO # 0.6 10^3/uL (0.0-0.8); MONO % 6.3 % (0.0-5.0); NEUTROPHILS # 5.6 10^3/uL (1.8-7.7); NEUTROPHILS % 60.1 % (36.0-66.0); PLATELET COUNT, AUTOMATED 292 10^3/uL (150-450); RED BLOOD COUNT 3.76 10^6/uL (4.00-5.40); WHITE BLOOD COUNT 9.3 10^3/uL (4.0-10.0)
== END ==
LOC: M LAB 17:58
PROVIDERS: ATTEND Registered Nurse Psychiatric/Mental Health
DX: F25.0 Schizoaffective disorder, bipolar type (principal)

== ENCOUNTER → 2018-06-06 | Outpatient (CLI) | payer MEDICAID ==
[2018-06-06 18:01] LABS: BASO % 0.3 % (0.0-1.0); EOS # 0.1 10^3/uL (0.0-0.50); EOS % 2.2 % (0.0-3.0); HEMATOCRIT 35.6 % (36.0-47.0); HEMOGLOBIN 11.5 g/dl (12.0-15.5); LYMPH # 2.3 10^3/uL (1.5-6.5); LYMPH % 39.7 % (24.0-44.0); MEAN CORPUSCULAR HEMOGLOBIN 29.5 pg (27.0-33.0); MEAN CORPUSCULAR HGB CONC 32.3 g/dl (32.0-36.5); MEAN CORPUSCULAR VOLUME 91.3 fl (80.0-96.0); MONO # 0.4 10^3/uL (0.0-0.8); MONO % 6.8 % (0.0-5.0); NEUTROPHILS % 50.7 % (36.0-66.0); PLATELET COUNT, AUTOMATED 313 10^3/uL (150-450); WHITE BLOOD COUNT 5.9 10^3/uL (4.0-10.0)
== END ==
LOC: M LAB 16:11
PROVIDERS: ATTEND Registered Nurse Psychiatric/Mental Health
DX: E25.0 Congenital adrenogenital disorders associated with enzyme deficiency (principal)

== ENCOUNTER → 2018-06-15 | Outpatient (CLI) | payer MEDICAID ==
[2018-06-15 15:51] LABS: BASO % 0.3 % (0.0-1.0); EOS # 0.2 10^3/uL (0.0-0.50); EOS % 3.3 % (0.0-3.0); HEMATOCRIT 36.7 % (36.0-47.0); HEMOGLOBIN 11.8 g/dl (12.0-15.5); LYMPH # 2.8 10^3/uL (1.5-6.5); LYMPH % 40.8 % (24.0-44.0); MEAN CORPUSCULAR HEMOGLOBIN 28.6 pg (27.0-33.0); MEAN CORPUSCULAR HGB CONC 32.2 g/dl (32.0-36.5); MEAN CORPUSCULAR VOLUME 88.9 fl (80.0-96.0); MONO # 0.5 10^3/uL (0.0-0.8); MONO % 7.4 % (0.0-5.0); NEUTROPHILS # 3.3 10^3/uL (1.8-7.7); NEUTROPHILS % 48.1 % (36.0-66.0); PLATELET COUNT, AUTOMATED 272 10^3/uL (150-450); RED BLOOD COUNT 4.13 10^6/uL (4.00-5.40); WHITE BLOOD COUNT 6.9 10^3/uL (4.0-10.0)
== END ==
LOC: M LAB 15:20
PROVIDERS: ATTEND Registered Nurse Psychiatric/Mental Health
DX: E25.0 Congenital adrenogenital disorders associated with enzyme deficiency (principal)

== ENCOUNTER 2018-06-16 19:30 | Emergency (ER) | payer MEDICAID ==
[~2018-06-16] VITALS: Ht 162.6 cm; Wt 93.2 kg
[~2018-06-16 19:30] MED LIST changes: +ARIP1TAB6 PO; -ARIP5TA PO; -BENZ1TA PO; +BENZ1TAB42 PO; +HALO10TA20 PO; -HALO1TAB29 PO
[2018-06-16 20:12] LABS: HEMATOCRIT 35.4 % (36.0-47.0); HEMOGLOBIN 11.6 g/dl (12.0-15.5); MEAN CORPUSCULAR HEMOGLOBIN 29.4 pg (27.0-33.0); MEAN CORPUSCULAR HGB CONC 32.8 g/dl (32.0-36.5); MEAN CORPUSCULAR VOLUME 89.6 fl (80.0-96.0); PLATELET COUNT, AUTOMATED 268 10^3/uL (150-450); RED BLOOD COUNT 3.95 10^6/uL (4.00-5.40); WHITE BLOOD COUNT 9.9 10^3/uL (4.0-10.0)
[2018-06-16 20:32] LABS: AMPHETAMINES LEVEL URINE NEGATIVE (NEGATIVE); BARBITURATES URINE NEGATIVE (NEGATIVE); BENZODIAZEPINES URINE NEGATIVE (NEGATIVE); CANNABINOIDS URINE NEGATIVE (NEGATIVE); COCAINE METABOLITE URINE NEGATIVE (NEGATIVE); METHADONE URINE NEGATIVE (NEGATIVE); OPIATES URINE NEGATIVE (NEGATIVE); PHENCYCLIDINE URINE NEGATIVE (NEGATIVE)
[2018-06-16 20:40] LABS: HCG, SERUM QUALITATIVE NEGATIVE (NEGATIVE)
[2018-06-16 20:50] LABS: ACETAMINOPHEN LEVEL < 2.0 UG/ML (10.0-30.0); ALBUMIN 4.2 GM/DL (3.2-5.2); ALT/SGPT 28 U/L (12-78); BILIRUBIN,DIRECT < 0.1 MG/DL (0.0-0.2); BILIRUBIN,TOTAL 0.2 MG/DL (0.2-1.0); BLOOD UREA NITROGEN 17 MG/DL (7-18); CALCIUM LEVEL 8.6 MG/DL (8.5-10.1); CARBON DIOXIDE LEVEL 25 MEQ/L (21-32); CHLORIDE LEVEL 107 MEQ/L (98-107); CREATININE FOR GFR 0.69 MG/DL (0.55-1.30); ETHYL ALCOHOL (ETHANOL) < 0.003 % (0.000-0.010); GLOMERULAR FILTRATION RATE > 60.0 (>60); GLUCOSE, FASTING 98 MG/DL (70-100); POTASSIUM SERUM 3.7 MEQ/L (3.5-5.1); SALICYLATE LEVEL < 1.7 MG/DL (5.0-30.0); SODIUM LEVEL 138 MEQ/L (136-145); TOTAL PROTEIN 8.1 GM/DL (6.4-8.2)
[2018-06-16] MEDS ORDERED: traZODone 50 MG TAB PO ONE (22:00)
[2018-06-16] MEDS ORDERED: cloZAPine 100 MG TAB (S0136) PO ONE (22:00)
[2018-06-17] MEDS ORDERED: METAL LOCK LOOP XX ONE (02:22)
[2018-06-17] MEDS ORDERED: FERROUS SULFATE 325MG TAB PO ONE (08:15)
[2018-06-17] MEDS ORDERED: DOCUSATE SODIUM 100 MG CAP PO ONE (08:15)
[2018-06-17] MEDS ORDERED: SERTRALINE 100 MG TAB PO ONE (08:15)
[2018-06-17] MEDS ORDERED: FOLIC ACID 1 MG TAB PO ONE (08:15)
--- NOTE | 2018-06-17 11:08 | ECGEPIP ---
Stationary ECG Study [facility] - ED Test Date: 2018-06-16 Pat Name: EVELIO KUNZ Department: Room: - Gender: F Religious Assistant: BORIS : 1990 Requested By: Micheal Mistry Order Number: [id number] Reading MD: Winnie Morales Measurements Intervals [place] Rate: 83 P: 69 AK: 140 QRS: 73 QRSD: 93 T: 50 QT: 366 QTc: 430 Interpretive Statements SINUS RHYTHM WITH SINUS ARRHYTHMIA NONSPECIFIC ST T WAVE CHANGES CW 09/10/17 RATE Electronically Signed On 06-17-2018 11:07:51 EDT by Winnie Morales
[2018-06-17 12:10] VITALS: BP 118/71
== END 2018-06-17 12:12 ==
LOC: M ED 19:30
DX: R45.851 Suicidal ideations (principal); F31.9 Bipolar disorder, unspecified; F20.9 Schizophrenia, unspecified; Z79.899 Other long term (current) drug therapy; Z88.0 Allergy status to penicillin; Z88.8 Allergy status to other drugs, medicaments and biological substances
CPT/HCPCS: 80048; 80076; 80307; 84443; 84703; 85027; 93005; 99284; G0480

== ENCOUNTER → 2018-06-20 | Outpatient (CLI) | payer MEDICAID ==
[2018-06-20 14:10] LABS: BASO % 0.5 % (0.0-1.0); EOS # 0.3 10^3/uL (0.0-0.50); EOS % 3.2 % (0.0-3.0); HEMATOCRIT 36.7 % (36.0-47.0); HEMOGLOBIN 11.8 g/dl (12.0-15.5); LYMPH # 2.7 10^3/uL (1.5-6.5); LYMPH % 34.4 % (24.0-44.0); MEAN CORPUSCULAR HEMOGLOBIN 29.2 pg (27.0-33.0); MEAN CORPUSCULAR HGB CONC 32.2 g/dl (32.0-36.5); MEAN CORPUSCULAR VOLUME 90.8 fl (80.0-96.0); MONO # 0.7 10^3/uL (0.0-0.8); MONO % 8.3 % (0.0-5.0); NEUTROPHILS # 4.1 10^3/uL (1.8-7.7); NEUTROPHILS % 52.7 % (36.0-66.0); PLATELET COUNT, AUTOMATED 288 10^3/uL (150-450); RED BLOOD COUNT 4.04 10^6/uL (4.00-5.40); WHITE BLOOD COUNT 7.8 10^3/uL (4.0-10.0)
== END ==
LOC: M LAB 12:08
PROVIDERS: ATTEND Registered Nurse Psychiatric/Mental Health
DX: E25.0 Congenital adrenogenital disorders associated with enzyme deficiency (principal)

== ENCOUNTER → 2018-06-28 | Outpatient (CLI) | payer MEDICAID ==
[2018-06-28 12:41] LABS: BASO % 0.4 % (0.0-1.0); EOS # 0.4 10^3/uL (0.0-0.50); EOS % 4.5 % (0.0-3.0); HEMATOCRIT 36.6 % (36.0-47.0); HEMOGLOBIN 11.7 g/dl (12.0-15.5); LYMPH # 2.5 10^3/uL (1.5-6.5); LYMPH % 31.4 % (24.0-44.0); MEAN CORPUSCULAR HEMOGLOBIN 29.1 pg (27.0-33.0); MONO # 0.7 10^3/uL (0.0-0.8); MONO % 8.2 % (0.0-5.0); NEUTROPHILS # 4.4 10^3/uL (1.8-7.7); NEUTROPHILS % 54.9 % (36.0-66.0); PLATELET COUNT, AUTOMATED 305 10^3/uL (150-450); RED BLOOD COUNT 4.02 10^6/uL (4.00-5.40)
== END ==
LOC: M LAB 11:55
PROVIDERS: ATTEND Registered Nurse Psychiatric/Mental Health
DX: F25.0 Schizoaffective disorder, bipolar type (principal)

== ENCOUNTER 2018-07-02 12:23 | Emergency (ER) | payer MEDICAID, OTHER ==
[~2018-07-02] VITALS: Ht 162.6 cm; Wt 91.8 kg
[2018-07-02 12:23] VITALS: BP 131/68
== END 2018-07-02 13:35 | disposition home or self-care (01) ==
LOC: M ED 12:23
DX: R44.0 Auditory hallucinations (principal); Z91.14 Patient's other noncompliance with medication regimen; Z88.0 Allergy status to penicillin; Z88.8 Allergy status to other drugs, medicaments and biological substances; F17.210 Nicotine dependence, cigarettes, uncomplicated

== ENCOUNTER 2018-07-02 15:02 | Emergency (ER) | payer OTHER ==
[2018-07-02 16:22] VITALS: BP 140/84
== END 2018-07-02 16:40 | disposition home or self-care (01) ==
LOC: EDBD 15:02 → M ED 15:02
DX: F41.1 Generalized anxiety disorder (principal); R56.9 Unspecified convulsions; Z79.899 Other long term (current) drug therapy; Z88.0 Allergy status to penicillin; Z88.8 Allergy status to other drugs, medicaments and biological substances; F17.210 Nicotine dependence, cigarettes, uncomplicated

== ENCOUNTER → 2018-07-04 | Outpatient (CLI) | payer OTHER ==
[2018-07-04 11:11] LABS: BASO % 0.4 % (0.0-1.0); EOS # 0.4 10^3/uL (0.0-0.50); HEMATOCRIT 34.9 % (36.0-47.0); HEMOGLOBIN 11.3 g/dl (12.0-15.5); LYMPH # 2.8 10^3/uL (1.5-6.5); LYMPH % 40.3 % (24.0-44.0); MEAN CORPUSCULAR HEMOGLOBIN 29.7 pg (27.0-33.0); MEAN CORPUSCULAR HGB CONC 32.4 g/dl (32.0-36.5); MEAN CORPUSCULAR VOLUME 91.8 fl (80.0-96.0); MONO # 0.5 10^3/uL (0.0-0.8); MONO % 6.9 % (0.0-5.0); NEUTROPHILS # 3.3 10^3/uL (1.8-7.7); PLATELET COUNT, AUTOMATED 303 10^3/uL (150-450); WHITE BLOOD COUNT 6.9 10^3/uL (4.0-10.0)
== END ==
LOC: M LAB 10:31
PROVIDERS: ATTEND Registered Nurse Psychiatric/Mental Health
DX: F25.0 Schizoaffective disorder, bipolar type (principal)

== ENCOUNTER 2018-07-08 17:58 | Emergency (ER) | payer OTHER ==
[~2018-07-08] VITALS: Ht 162.6 cm; Wt 95.5 kg
[2018-07-08 17:59] VITALS: BP 139/94
[2018-07-08] MEDS ORDERED: cloZAPine 100 MG TAB (S0136) PO ONE (18:45)
== END 2018-07-08 19:06 | disposition home or self-care (01) ==
LOC: M ED 17:58
DX: Z76.0 Encounter for issue of repeat prescription (principal); F20.9 Schizophrenia, unspecified; F31.9 Bipolar disorder, unspecified; E78.00 Pure hypercholesterolemia, unspecified; F41.9 Anxiety disorder, unspecified; F44.5 Conversion disorder with seizures or convulsions; E03.9 Hypothyroidism, unspecified; Z72.0 Tobacco use; Z79.899 Other long term (current) drug therapy; Z88.0 Allergy status to penicillin; Z88.8 Allergy status to other drugs, medicaments and biological substances

== ENCOUNTER → 2018-07-10 | Outpatient (CLI) | payer OTHER ==
[2018-07-10 12:59] LABS: BASO % 0.5 % (0.0-1.0); EOS # 0.3 10^3/uL (0.0-0.50); EOS % 4.1 % (0.0-3.0); HEMOGLOBIN 11.6 g/dl (12.0-15.5); LYMPH # 2.9 10^3/uL (1.5-6.5); LYMPH % 36.6 % (24.0-44.0); MEAN CORPUSCULAR HEMOGLOBIN 29.3 pg (27.0-33.0); MEAN CORPUSCULAR HGB CONC 32.2 g/dl (32.0-36.5); MEAN CORPUSCULAR VOLUME 90.9 fl (80.0-96.0); MONO # 0.6 10^3/uL (0.0-0.8); MONO % 7.6 % (0.0-5.0); NEUTROPHILS # 3.9 10^3/uL (1.8-7.7); NEUTROPHILS % 50.7 % (36.0-66.0); PLATELET COUNT, AUTOMATED 298 10^3/uL (150-450); RED BLOOD COUNT 3.96 10^6/uL (4.00-5.40); WHITE BLOOD COUNT 7.8 10^3/uL (4.0-10.0)
== END ==
LOC: M LAB 12:03
PROVIDERS: ATTEND Registered Nurse Psychiatric/Mental Health
DX: F25.0 Schizoaffective disorder, bipolar type (principal)

== ENCOUNTER → 2018-07-25 | Outpatient (CLI) | payer OTHER ==
[2018-07-25 16:30] LABS: BASO # 0.1 10^3/uL (0.0-0.2); BASO % 0.6 % (0.0-1.0); EOS # 0.3 10^3/uL (0.0-0.50); EOS % 3.8 % (0.0-3.0); HEMATOCRIT 34.9 % (36.0-47.0); HEMOGLOBIN 11.2 g/dl (12.0-15.5); LYMPH # 2.9 10^3/uL (1.5-6.5); LYMPH % 36.2 % (24.0-44.0); MEAN CORPUSCULAR HEMOGLOBIN 28.9 pg (27.0-33.0); MEAN CORPUSCULAR HGB CONC 32.1 g/dl (32.0-36.5); MEAN CORPUSCULAR VOLUME 89.9 fl (80.0-96.0); MONO # 0.6 10^3/uL (0.0-0.8); MONO % 7.9 % (0.0-5.0); NEUTROPHILS % 50.7 % (36.0-66.0); PLATELET COUNT, AUTOMATED 288 10^3/uL (150-450); RED BLOOD COUNT 3.88 10^6/uL (4.00-5.40); WHITE BLOOD COUNT 7.9 10^3/uL (4.0-10.0)
== END ==
LOC: M LAB 16:08
PROVIDERS: ATTEND Registered Nurse Psychiatric/Mental Health
DX: F25.0 Schizoaffective disorder, bipolar type (principal)

== ENCOUNTER 2018-07-29 15:37 | Emergency (ER) | payer OTHER ==
[~2018-07-29] VITALS: Ht 162.6 cm; Wt 101.2 kg
[2018-07-29] MEDS ORDERED: NS 1,000 ML IV ONE (16:15)
[2018-07-29 16:46] LABS: BASO % 0.5 % (0.0-1.0); EOS # 0.2 10^3/uL (0.0-0.50); HEMATOCRIT 37.5 % (36.0-47.0); HEMOGLOBIN 12.2 g/dl (12.0-15.5); LYMPH # 2.4 10^3/uL (1.5-6.5); LYMPH % 30.1 % (24.0-44.0); MEAN CORPUSCULAR HEMOGLOBIN 29.8 pg (27.0-33.0); MEAN CORPUSCULAR HGB CONC 32.5 g/dl (32.0-36.5); MEAN CORPUSCULAR VOLUME 91.5 fl (80.0-96.0); MONO # 0.5 10^3/uL (0.0-0.8); NEUTROPHILS # 4.8 10^3/uL (1.8-7.7); NEUTROPHILS % 59.8 % (36.0-66.0); PLATELET COUNT, AUTOMATED 281 10^3/uL (150-450)
[2018-07-29 17:22] LABS: ALT/SGPT 48 U/L (12-78); BILIRUBIN,DIRECT < 0.1 MG/DL (0.0-0.2); BILIRUBIN,TOTAL 0.3 MG/DL (0.2-1.0); BLOOD UREA NITROGEN 10 MG/DL (7-18); CALCIUM LEVEL 9.1 MG/DL (8.5-10.1); CARBON DIOXIDE LEVEL 27 MEQ/L (21-32); CHLORIDE LEVEL 104 MEQ/L (98-107); CREATININE FOR GFR 0.74 MG/DL (0.55-1.30); GLOMERULAR FILTRATION RATE > 60.0 (>60); GLUCOSE, FASTING 116 MG/DL (70-100); LIPASE 81 U/L (73-393); POTASSIUM SERUM 3.8 MEQ/L (3.5-5.1); SODIUM LEVEL 139 MEQ/L (136-145)
[2018-07-29] MEDS ORDERED: ISOVUE-370 76% 100ML VIAL (Q9967) As Ordered ONE (17:24)
--- NOTE | 2018-07-29 18:29 | REPVR ---
EXAM: CT Abdomen and Pelvis With Contrast EXAM DATE/TIME: 07/29/2018 5:35 PM CLINICAL HISTORY: 28 years old, female; Abdominal pain; Other: Llq pain TECHNIQUE: Imaging protocol: Axial computed tomography images of the abdomen and pelvis with intravenous contrast. Coronal and sagittal reformatted images were created and reviewed. Radiation optimization: All CT scans at this facility use at least one of these dose optimization techniques: automated exposure control; mA and/or kV adjustment per patient size (includes targeted exams where dose is matched to clinical indication); or iterative reconstruction. Contrast material: ISOVUE 370; Contrast volume: 100 ml; Contrast route: IV; COMPARISON: PELVIS NON-OB COMPLETE US 01/31/2014 4:01 PM FINDINGS: ABDOMEN: Liver: Normal. No mass. Gallbladder and bile ducts: Normal. No calcified stones. No ductal dilation. Pancreas: Normal. No ductal dilation. Spleen: Normal. No splenomegaly. Adrenals: Normal. No mass. Kidneys and ureters: Normal. No hydronephrosis. Stomach and bowel: Normal. No obstruction. No mucosal thickening. Appendix: No evidence of appendicitis. PELVIS: Bladder: Unremarkable as visualized. Reproductive: There is a 2.3 cm peripherally enhancing cystic lesion of the left adnexa. ABDOMEN and PELVIS: Intraperitoneal space: There is trace fluid in the pelvic cul-de-sac, which may be physiologic. Bones/joints: No acute fracture. No dislocation. Soft tissues: Unremarkable. Vasculature: Normal. No abdominal aortic aneurysm. Lymph nodes: Normal. No enlarged lymph nodes. IMPRESSION: 1. No acute findings of the abdomen or pelvis. 2. 2.3 cm left ovarian cyst, which could be the source of the patient's pain. Followup pelvic ultrasound can be obtained for further evaluation if clinically indicated. Electronically signed by: Renetta Rodriguez On 07/29/2018 18:29:56 PM
[2018-07-29 20:18] VITALS: BP 132/80
--- NOTE | 2018-07-29 20:47 | REPVR ---
EXAM: US Pelvis Complete, Transabdominal and US Pelvis, Transvaginal and US Duplex Artery and Vein, Ovaries, Complete EXAM DATE/TIME: 07/29/2018 8:14 PM CLINICAL HISTORY: 28 years old, female; Pelvic pain; Additional info: Llq pain, ovarian cyst, R/O torsion TECHNIQUE: Imaging protocol: Real-time transabdominal and transvaginal pelvic ultrasound (complete) with image documentation. Transvaginal imaging was used for better evaluation of the endometrium and adnexa. Real-time duplex ultrasound scan of the arterial and venous flow of the ovaries with B-mode, color Doppler flow and spectral waveform analysis. Complete transabdominal pelvis ultrasound and complete duplex were performed. COMPARISON: PELVIS NON-OB COMPLETE US 01/31/2014 4:01 PM FINDINGS: Uterus/cervix: Uterus is normal, measuring 8.8 x 4.9 x 5.6 cm. Endometrial stripe measures 10.6 mm. Right adnexa: Right ovary measures 4.2 x 3.0 x 2.6 cm. There is a 2.0 x 1.6 x 1.9 cm slightly complex cyst. Normal ovarian blood flow and spectral waveforms. No torsion. Left adnexa: Left ovary measures 4.1 x 3.0 x 3.2 cm. No mass. Normal ovarian blood flow and spectral waveforms. No torsion. Free fluid: There is trace fluid in the cul-de-sac. Bladder: The bladder measures 3.8 x 3.7 x 4.6 cm. IMPRESSION: 1. No acute findings. No evidence of ovarian torsion. 2. 2 cm left ovarian complex or hemorrhagic cyst. Electronically signed by: Renetta Rodriguez On 07/29/2018 20:46:34 PM
--- NOTE | 2018-07-31 05:57 | ED PDOC ---
Post-Departure [facility]-Up [facility] faxed formal report of ct abd/p for fu Winnie Portillo MD July 31, 2018 05:57
== END 2018-07-29 21:07 | disposition home or self-care (01) ==
LOC: M ED 15:37
DX: N83.292 Other ovarian cyst, left side (principal); K21.9 Gastro-esophageal reflux disease without esophagitis; F44.5 Conversion disorder with seizures or convulsions; E03.9 Hypothyroidism, unspecified; F41.9 Anxiety disorder, unspecified; F32.9 Major depressive disorder, single episode, unspecified; F31.9 Bipolar disorder, unspecified; F20.9 Schizophrenia, unspecified; Z72.0 Tobacco use; Z79.899 Other long term (current) drug therapy; Z88.0 Allergy status to penicillin; Z88.8 Allergy status to other drugs, medicaments and biological substances
CPT/HCPCS: 74177; 76830; 76856; 80048; 80076; 81001; 83690; 84702; 85025; 93976; 99284; Q9967

== ENCOUNTER → 2018-08-02 | Outpatient (REF) | payer OTHER, MEDICAID ==
[~2018-08-02] MED LIST changes: +PRAZ1CAP PO
== END ==
LOC: M SFHCWAGY 14:26
PROVIDERS: ATTEND Nurse Practitioner Women's Health
DX: Z12.4 Encounter for screening for malignant neoplasm of cervix (principal)

== ENCOUNTER 2018-08-03 21:24 | Inpatient (IN) | payer MEDICAID, OTHER ==
[~2018-08-03] VITALS: Ht 162.6 cm; Wt 98.2 kg
[~2018-08-03 21:24] MED LIST changes: -PRAZ1CAP PO
[2018-08-03] MEDS ORDERED: PRAZ1CAP PO (21:46)
[2018-08-03 22:46] LABS: HEMATOCRIT 35.5 % (36.0-47.0); HEMOGLOBIN 11.6 g/dl (12.0-15.5); MEAN CORPUSCULAR HEMOGLOBIN 30.1 pg (27.0-33.0); MEAN CORPUSCULAR HGB CONC 32.7 g/dl (32.0-36.5); MEAN CORPUSCULAR VOLUME 92.2 fl (80.0-96.0); PLATELET COUNT, AUTOMATED 265 10^3/uL (150-450); RED BLOOD COUNT 3.85 10^6/uL (4.00-5.40); WHITE BLOOD COUNT 10.6 10^3/uL (4.0-10.0)
[2018-08-03 23:10] LABS: HCG, SERUM QUALITATIVE NEGATIVE (NEGATIVE)
[2018-08-03 23:14] LABS: AMPHETAMINES LEVEL URINE NEGATIVE (NEGATIVE); BARBITURATES URINE NEGATIVE (NEGATIVE); BENZODIAZEPINES URINE NEGATIVE (NEGATIVE); CANNABINOIDS URINE NEGATIVE (NEGATIVE); COCAINE METABOLITE URINE NEGATIVE (NEGATIVE); METHADONE URINE NEGATIVE (NEGATIVE); OPIATES URINE NEGATIVE (NEGATIVE); PHENCYCLIDINE URINE NEGATIVE (NEGATIVE)
[2018-08-03 23:28] LABS: ACETAMINOPHEN LEVEL < 2.0 UG/ML (10.0-30.0); ALT/SGPT 42 U/L (12-78); BILIRUBIN,DIRECT < 0.1 MG/DL (0.0-0.2); BILIRUBIN,TOTAL 0.3 MG/DL (0.2-1.0); BLOOD UREA NITROGEN 9 MG/DL (7-18); CALCIUM LEVEL 8.8 MG/DL (8.5-10.1); CARBON DIOXIDE LEVEL 26 MEQ/L (21-32); CHLORIDE LEVEL 107 MEQ/L (98-107); CREATININE FOR GFR 0.71 MG/DL (0.55-1.30); ETHYL ALCOHOL (ETHANOL) < 0.003 % (0.000-0.010); GLOMERULAR FILTRATION RATE > 60.0 (>60); GLUCOSE, FASTING 96 MG/DL (70-100); POTASSIUM SERUM 4.1 MEQ/L (3.5-5.1); SALICYLATE LEVEL < 1.7 MG/DL (5.0-30.0); SODIUM LEVEL 139 MEQ/L (136-145); TOTAL PROTEIN 8.2 GM/DL (6.4-8.2)
[2018-08-04] MEDS ORDERED: traZODone 50 MG TAB PO PRN (00:15)
[2018-08-04] MEDS ORDERED: MAALOX 30 ML SUSP *UDC PO PRN (00:15)
[2018-08-04] MEDS ORDERED: MOM 30ML SUSPENSION UDC PO PRN (00:15)
[2018-08-04] MEDS ORDERED: TRAZ-160 PO (00:38)
[2018-08-04 02:24] VITALS: BP 148/86
[2018-08-04 06:23] VITALS: BP 148/90
--- NOTE | 2018-08-04 11:35 | MHHPEPDOC ---
General Legal Status: 9.39 Chief Complaint "Patient states she is confused and sad and feels weierd.. History of Present Illness HISTORY OF THE PRESENT ILLNESS: Patient is a 28 -year-old , female, who states she is confused, sad, suicidal and feels weird. She has a history of previous overdoses and was recently here in April. Her outpatient care is with Dr. Ramirez at [facility].. She also sees a counselor, whose name she does not know. She states she missed an appointment yesterday. The patient is d ivorced and lives in [place] and has a roommate on previous history has caused her some difficulties. Patient has had previous psychiatric hospitalizations and states she has been hospitalized over 30 times. Her medical history is positive for pseudoseizures, which she states is due to stress. She lives in a [facility] program. She denies legal history. She denies alcoholic history. She denies drug history. Her neurological history is positive for aforementioned pseudoseizures. Recently she has been sad about the of her previous [id number] mother and what she describes as sibling rivalry. She has a 31-year-old sister who also is at a [facility] house. Patient states she is sad because she is and single. She denies hallucinations, delusions, obsessions, compulsions or phobias. Psychiatric Review of Systems Depression (2 or more weeks): depressed mood, anhedonia, difficulty concentrating, suicidal thoughts Kay (4 or more days of): denies Psychosis: denies PTSD: denies Anxiety: denies Anxiety/ 6 months or more of: difficulty concentrating, irritability Past Psychiatric History Previous Psychiatric Diagnosis: Schizophrenia, depression, schizoaffective disorder Previous Psychiatric Admissions: Numerous. Suicide Attempts:, Numerous. Psychiatric Follow-up: Outpatient [facility]. Psychiatric medications: Haldol Decanoate, Clozaril, Sertraline Past Medical History Medical Problems Pseudoseizures. Ovarian cyst Head Injury: No Seizures: Yes Hospitalizations: Yes Surgeries: Yes Family Medical/Psychiatric HX Psychiatric Disorders: Yes Addiction: No Suicide Attemps/Completions: No Addiction History denies Social History Childhood: Not reported. Abuse/Trauma:. Reported. Current Living Situation: [facility] program. Education:, High school. Employment: Unemployed. Social Support:, Family. Legal: Negative Marital: Orders. Mental Status Examination General Appearance: unkempt, appears stated age Build: overweight Demeanor: average Eye Contact: average Activity: average Behavior: cooperative Speech: clear Mood: depressed Affect: appropriate Thought Process: logical/linear Thought Content (Delusions): none reported Thought Content (Other): none reported Thought Content (Aggressive): none reported Perception (Hallucinations): none reported Perception (Other): none reported Cognition (Impairment of): none reported Cognition(Intelligence Est.): average Oriented: Alert Insight: fair Judgment: Fair Psychosis: Denies Diagnoses Schizoaffective disorder A-FIB/CHADSVASC A-FIB History Current/History of A-Fib/PAF?: No Current Oral Anticoagulant The: No Treatment Treatment ordered: NONE Initial Treatment Plan 1. Patient was admitted on a [9.39] status. 2. Complete history was obtained. 3. With patients permission, family will be contacted and database will be expanded. 4. Patients medication regimen will be reviewed and changed accordingly. 5. Patient will be provided with protected environment. 6. Patient will be treated with individual, group, and milieu therapies. 7. Patient will receive supportive psych-education. 8. Discharge planning will commence immediately. 9. Outpatient follow-up treatment will be strongly recommended. 10. The initial treatment plan will focus initially on: * Depression. * Risk for suicide. * Substance abuse. ESTIMATED LENGTH OF STAY: - DAYS. TIME SPENT COUNSELING AND COORDINATING INITIAL CARE: minutes. Vital Signs Vital Signs Date Time Temp Pulse Resp B/P (MAP) Pulse Ox O2 Delivery O2 Flow Rate FiO2 08/04/18 06:23 99.6 96 18 148/90 (109) 08/04/18 02:23 98 Room Air Laboratory Data 24H Labs Laboratory Tests 2 08/03/18 22:38: Nucleated Red Blood Cells % (auto) 0.0, Anion Gap 6L, Glomerular Filtration Rate > 60.0, Calcium Level 8.8, Aspartate Amino Transf (AST/SGOT) 29, Alanine Aminotransferase (ALT/SGPT) 42, Alkaline Phosphatase 69, Total Bilirubin 0.3, Direct Bilirubin < 0.1, Total Protein 8.2, Albumin 4.0, Albumin/Globulin Ratio 0.95L, Thyroid Stimulating Hormone (TSH) 1.270, Human Chorionic Gonadotropin, Qual NEGATIVE, Salicylates Level < 1.7L, Urine Amphetamines Screen NEGATIVE, Urine Benzodiazepines Screen NEGATIVE, Urine Opiates Screen NEGATIVE, Urine Methadone Screen NEGATIVE, Acetaminophen Level < 2.0L, Urine Barbiturates Screen NEGATIVE, Urine Phencyclidine Screen NEGATIVE, Urine Cocaine Metabolite Screen NEGATIVE, Urine Cannabinoids Screen NEGATIVE, Ethyl Alcohol Level < 0.003 CBC/BMP Laboratory Tests 08/03/18 22:38 Red Blood Count 3.85 L, Mean Corpuscular Volume 92.2, Mean Corpuscular Hemoglobin 30.1, Mean Corpuscular Hemoglobin Concent 32.7, Red Cell Distribution Width 13.8 Medications Scheduled Clozapine (Clozapine) 100 Mg Tab, 300 MG PO QHS, (Reported) Docusate Sodium (Colace) 100 Mg Cap, 100 MG PO DAILY, (Reported) Ferrous Sulfate (Ferrous Sulfate) 325 Mg Tab, 325 MG PO DAILY, (Reported) Folic Acid (Folic Acid) 1 Mg Tab, 1 MG PO DAILY, (Reported) Haloperidol Decanoate (Haloperidol Decanoate) 100 Mg/Ml Soln, 100 MG IM QMONTH, (Reported) PATIENT STATES SHE LAST HAD INJECTION BEGINNING OF THIS MONTH Prazosin Hcl (Prazosin HCl) 1 Mg Capsule, 1 MG PO QHS, (Reported) Sertraline Hcl (Zoloft) 100 Mg Tab, 100 MG PO DAILY, (Reported) Scheduled PRN Acetaminophen (Acetaminophen) 325 Mg Tab, 650 MG PO Q6H PRN for PAIN, (Reported) Ibuprofen (Ibuprofen) 200 Mg Cap, 200 MG PO Q6H PRN for PAIN, (Reported) Trazodone HCl (Trazodone HCl) 50 Mg Tablet, 50 MG PO QHS PRN for INSOMNIA, (Reported) Allergies Coded Allergies: Penicillins (Unverified Allergy, Unknown, 06/16/18) paliperidone (Unverified Adverse Reaction, Unknown, DROOLING, 06/16/18) TOBIAS SNIDER MD August 04, 2018 11:35
[2018-08-04 11:47] LABS: BASO % 0.3 % (0.0-1.0); EOS # 0.3 10^3/uL (0.0-0.50); EOS % 3.2 % (0.0-3.0); HEMOGLOBIN 11.3 g/dl (12.0-15.5); LYMPH # 3.3 10^3/uL (1.5-6.5); LYMPH % 37.9 % (24.0-44.0); MEAN CORPUSCULAR HGB CONC 32.3 g/dl (32.0-36.5); MEAN CORPUSCULAR VOLUME 89.7 fl (80.0-96.0); MONO # 0.7 10^3/uL (0.0-0.8); MONO % 8.1 % (0.0-5.0); NEUTROPHILS # 4.4 10^3/uL (1.8-7.7); NEUTROPHILS % 50.2 % (36.0-66.0); PLATELET COUNT, AUTOMATED 270 10^3/uL (150-450); WHITE BLOOD COUNT 8.8 10^3/uL (4.0-10.0)
[2018-08-04] MEDS: FERROUS SULFATE 325MG TAB PO SCH (12:03)
[2018-08-04] MEDS: SERTRALINE 100 MG TAB PO SCH (12:03)
[2018-08-04] MEDS: FOLIC ACID 1 MG TAB PO SCH (12:03)
[2018-08-04] MEDS: ACETAMINOPHEN TAB 650MG DOSE (2X325MG) PO PRN ×2 (12:26→19:45)
--- NOTE | 2018-08-04 13:49 | HPEPDOC ---
General Date of Admission August 04, 2018 at 00:09 Attending Physician: JOHN SCHUMACHER MD Chief Complaint The patient is a 28-year-old female admitted with a reason for visit of Unspecfied Depressive Disorder. History of Present Illness Patient is a 28 year old female, with past medical history significant for HTN, obesity, of schizoaffective disorder, pseudoseizures and depression disorder, admitted on account of suicidal ideation. Patient reported confusion and suicidal thoughts and thinking of shooting herself even though she has not access to firearms. She was admitted for further evaluation and management On evaluation she reports depressive symptoms and feeling sad for 2-3 weeks worsening the past 24 hours prior to presentation. She denies chills, fever, chest pain, SOB. Home Medications Scheduled Clozapine (Clozapine) 100 Mg Tab, 300 MG PO QHS, (Reported) Docusate Sodium (Colace) 100 Mg Cap, 100 MG PO DAILY, (Reported) Ferrous Sulfate (Ferrous Sulfate) 325 Mg Tab, 325 MG PO DAILY, (Reported) Folic Acid (Folic Acid) 1 Mg Tab, 1 MG PO DAILY, (Reported) Haloperidol Decanoate (Haloperidol Decanoate) 100 Mg/Ml Soln, 100 MG IM QMONTH, (Reported) PATIENT STATES SHE LAST HAD INJECTION BEGINNING OF THIS MONTH Prazosin Hcl (Prazosin HCl) 1 Mg Capsule, 1 MG PO QHS, (Reported) Sertraline Hcl (Zoloft) 100 Mg Tab, 100 MG PO DAILY, (Reported) Scheduled PRN Acetaminophen (Acetaminophen) 325 Mg Tab, 650 MG PO Q6H PRN for PAIN, (Reported) Ibuprofen (Ibuprofen) 200 Mg Cap, 200 MG PO Q6H PRN for PAIN, (Reported) Trazodone HCl (Trazodone HCl) 50 Mg Tablet, 50 MG PO QHS PRN for INSOMNIA, (Reported) Allergies Coded Allergies: Penicillins (Unverified Allergy, Unknown, 06/16/18) paliperidone (Unverified Adverse Reaction, Unknown, DROOLING, 06/16/18) Past Medical History Medical History Hidradenitis suppurativa Anemia Schizophrenia Schizoaffective disorder Bipolar Disorder. PTSD Surgical History Cervical surgery Family History Significant Family History: Noncontributory (Arthritis) Social History * Smoker: greater than 1 pack/day, cigar Alcohol: Denies Drugs: denies A-FIB/CHADSVASC A-FIB History Current/History of A-Fib/PAF?: No Current Oral Anticoagulant The: No Review of Systems Other systems A pertinent 10 point ROS was completed, negative except as stated in the HPI Physical Examination Other physical findings GENERAL: obese female, in NAD SKIN : Warm, dry intact HEENT: Atraumatic, normocephalic, PERRL, moist mucous membrane CARDIOVASCULAR: Regular rate and rhythm, S1S2, no JVD, no edema, distal pulses + and palpable RESP: CTAB, no accessory muscle use noted ABDOMEN: BS+ non distended non tender MS: no joint deformities NEURO: Alert and oriented x 3, CN2-12 grossly intact PSYCH: no anxiety or agitation, appropriate mood and affect. Vital Signs Vital Signs Date Time Temp Pulse Resp B/P (MAP) Pulse Ox O2 Delivery O2 Flow Rate FiO2 08/04/18 06:23 99.6 96 18 148/90 (109) 08/04/18 02:23 98 Room Air Laboratory Data Labs 24H Laboratory Tests 2 08/03/18 22:38: Nucleated Red Blood Cells % (auto) 0.0, Anion Gap 6L, Glomerular Filtration Rate > 60.0, Calcium Level 8.8, Aspartate Amino Transf (AST/SGOT) 29, Alanine Amino transferase (ALT/SGPT) 42, Alkaline Phosphatase 69, Total Bilirubin 0.3, Direct Bilirubin < 0.1, Total Protein 8.2, Albumin 4.0, Albumin/Globulin Ratio 0.95L, Thyroid Stimulating Hormone (TSH) 1.270, Human Chorionic Gonadotropin, Qual NEGATIVE, Salicylates Level < 1.7L, Urine Amphetamines Screen NEGATIVE, Urine Benzodiazepines Screen NEGATIVE, Urine Opiates Screen NEGATIVE, Urine Methadone Screen NEGATIVE, Acetaminophen Level < 2.0L, Urine Barbiturates Screen NEGATIVE, Urine Phencyclidine Screen NEGATIVE, Urine Cocaine Metabolite Screen NEGATIVE, Urine Cannabinoids Screen NEGATIVE, Ethyl Alcohol Level < 0.003 08/04/18 11:29: Nucleated Red Blood Cells % (auto) 0.0, Immature Granulocyte % (Auto) 0.3, White Blood Count 8.8, Red Blood Count 3.90L, Hemoglobin 11.3L, Hematocrit 35.0L, Mean Corpuscular Volume 89.7, Mean Corpuscular Hemoglobin 29.0, Mean Corpuscular Hemoglobin Concent 32.3, Red Cell Distribution Width 14.0, Platelet Count 270, Neutrophils (%) (Auto) 50.2, Lymphocytes (%) (Auto) 37.9, Monocytes (%) (Auto) 8.1H, Eosinophils (%) (Auto) 3.2H, Basophils (%) (Auto) 0.3, Neutrophils # (Auto) 4.4, Lymphocytes # (Auto) 3.3, Monocytes # (Auto) 0.7, Eosinophils # (Auto) 0.3, Basophils # (Auto) 0.0 CBC/BMP Laboratory Tests 08/03/18 22:38 Red Blood Count 3.85 L, Mean Corpuscular Volume 92.2, Mean Corpuscular Hemoglobin 30.1, Mean Corpuscular Hemoglobin Concent 32.7, Red Cell Distribution Width 13.8 08/04/18 11:29 Red Blood Count 3.90 L, Mean Corpuscular Volume 89.7, Mean Corpuscular Hemoglobin 29.0, Mean Corpuscular Hemoglobin Concent 32.3, Red Cell Distribution Width 14.0, Neutrophils (%) (Auto) 50.2, Lymphocytes (%) (Auto) 37.9, Monocytes (%) (Auto) 8.1 H, Eosinophils (%) (Auto) 3.2 H, Basophils (%) (Auto) 0.3, Neutrophils # (Auto) 4.4, Lymphocytes # (Auto) 3.3, Monocytes # (Auto) 0.7, Eosinophils # (Auto) 0.3, Basophils # (Auto) 0.0 Assessment/Plan Hypertension -Continue Prazosin -Blood pressure monitoring per unit protocol Anemia -Chronic, stable, no signs of acute bleeding Suicidal ideation -Management by primary team Depression and anxiety -Management by primary team Plan / VTE VTE Prophylaxis Ordered?: No VTE Exclusion Mechanical Proph: Low Risk for VTE DEVAN DANIELS August 04, 2018 13:49
[2018-08-04 18:32] VITALS: BP 127/71
[2018-08-04] MEDS: PRAZOSIN 1 MG CAP PO SCH (20:14)
[2018-08-04] MEDS: traZODone 50 MG TAB PO PRN (20:15)
[2018-08-04] MEDS: cloZAPine 100 MG TAB (S0136) PO SCH (21:17)
[2018-08-05 06:46] VITALS: BP 126/83
[2018-08-05] MEDS: FERROUS SULFATE 325MG TAB PO SCH (09:02)
[2018-08-05] MEDS: SERTRALINE 100 MG TAB PO SCH (09:02)
[2018-08-05] MEDS: FOLIC ACID 1 MG TAB PO SCH (09:02)
--- NOTE | 2018-08-05 16:45 | MHIPNPDOC ---
[facility] Progress Note Progress Note DATE OF SERVICE: 08/05/18 HISTORY: 28-year-old female recently confused with past history of depression and psychotic features. VITAL SIGNS: See below. NEW TEST RESULTS: . CURRENT MEDICATIONS: See below. MENTAL STATUS EXAMINATION: Patient is a, 28-year old female, who is, is feeling significantly better today. Speech: Is. Normal. Language skills are ammonia. Thought processes including:. No complaints of psychotic symptoms. Thought content: Clear. Abstract reasoning, and computation: Able to abstract. Description of associations: Was associations. Description of abnormal or psychotic thoughts:. No psychotic thoughts recorded today. Judgment:, Good. Insight:, Good. Orientation:, Fully oriented. Recent and remote memory:, Intact. Attention span and concentration:, Improved. Language:. As above. Fund of knowledge:full Mood: Improved. Affect: Bright. DIAGNOSES: 1. Schizoaffective disorder. ASSESSMENT: Patient back on Clozaril dosage and seems to be significantly improved MANAGEMENT PLAN:. Continued observation and make outpatient plan. TIME SPENT: 30 minutes. Vital Signs Vital Signs Date Time Temp Pulse Resp B/P (MAP) Pulse Ox O2 Delivery O2 Flow Rate FiO2 08/05/18 06:46 97.5 84 14 126/83 (97) 08/04/18 02:23 98 Room Air Current Medications Current Medications Acetaminophen (Tylenol Tab) 650 mg Q6HP PRN PO HEADACHE or DISCOMFORT Last adm inistered on 08/04/18at 19:45; Start 08/04/18 at 00:15 Al Hydrox/Mg Hydrox/Simethicone (Mylanta) 30 ml Q4HP PRN PO HEARTBURN/IND IGESTION; Start 08/04/18 at 00:15 Clozapine (Clozaril) 300 mg QHS PO Last administered on 08/04/18at 21:17; Start 08/04/18 at 21:00 Ferrous Sulfate (Ferrous Sulfate) 325 mg DAILY PO Last administered on 08/05/18at 09:02; Start 08/04/18 at 09:00 Folic Acid (Folic Acid) 1 mg DAILY PO Last administered on 08/05/18at 09:02; Start 08/04/18 at 09:00 Home Med (Med Rec Complete!) ASDIRECTED XX ; Start 08/04/18 at 00:45; Stop 08/04/18 at 00:45; Status DC Magnesium Hydroxide (Milk Of Magnesia) 30 ml DAILYPRN PRN PO CONSTIPATION; Start 08/04/18 at 00:15 Prazosin HCl (Minipress) 1 mg QHS PO Last administered on 08/04/18at 20:14; Start 08/04/18 at 21:00 Sertraline HCl (Zoloft) 100 mg DAILY PO Last administered on 08/05/18at 09:02; Start 08/04/18 at 09:00 Trazodone HCl (Desyrel) 50 mg QHS PRN PO INSOMNIA Last administered on 08/04/18at 20:15; Start 08/04/18 at 11:15 Trazodone HCl (Desyrel) 50 mg QHSP PRN PO INSOMNIA Last administered on 08/04/18at 02:57; Start 08/04/18 at 00:15; Stop 08/04/18 at 11:19; Status DC Allergies Coded Allergies: Penicillins (Unverified Allergy, Unknown, 06/16/18) paliperidone (Unverified Adverse Reaction, Unknown, DROOLING, 06/16/18) A-FIB/CHADSVASC A-FIB History Current/History of A-Fib/PAF?: No Current Oral Anticoagulant The: No Treatment Treatment ordered: NONE TOBIAS SNDIER MD August 05, 2018 16:45
--- NOTE | 2018-08-05 17:04 | IPNPDOC ---
Subjective Date Seen The patient was seen on 08/05/18. Subjective Chief Complaint/HPI Patient is a 28 year old female, with past medical history significant for HTN, obesity, of schizoaffective disorder, pseudoseizures and depression disorder, admitted on account of suicidal ideation. Events since last encounter Has no new complains today, states she feels much better. Denies chest pain, SOB, weakness Objective Physical Examination Other physical findings GENERAL: NAD SKIN : Warm, dry intact HEENT: Atraumatic, normocephalic, PERRL, moist mucous membrane CARDIOVASCULAR: Regular rate and rhythm, S1S2, no JVD, no edema, distal pulses + and palpable RESP: CTAB, no accessory muscle use noted ABDOMEN: BS+ non distended non tender MS: no joint deformities NEURO: Alert and oriented x 3, CN2-12 grossly intact PSYCH: no anxiety or agitation, appropriate mood and affect. A-FIB/CHADSVASC A-FIB History Current/History of A-Fib/PAF?: No Current Oral Anticoagulant The: No Assessment /Plan Assessment Hypertension -Blood pressure is better controlled today -Discussed with patient -Continue Prazosin -Blood pressure monitoring per unit protocol Obesity -Therapeutic lifestyle changes encouraged. Anemia -Chronic, stable, no signs of acute bleeding Suicidal ideation -Management by primary team Depression and anxiety -Management by primary team Plan/VTE VTE Prophylaxis Ordered?: No VTE Exclusion Mechanical Proph: Low Risk for VTE VS, I&O, 24H, Fishbone Vital Signs/I&O Vital Signs Date Time Temp Pulse Resp B/P (MAP) Pulse Ox O2 Delivery O2 Flow Rate FiO2 08/05/18 06:46 97.5 84 14 126/83 (97) 08/04/18 02:23 98 Room Air DEVAN DANIELSP August 05, 2018 17:04
[2018-08-05 18:00] VITALS: BP 111/59
[2018-08-05] MEDS: ACETAMINOPHEN TAB 650MG DOSE (2X325MG) PO PRN (19:35)
[2018-08-05] MEDS: cloZAPine 100 MG TAB (S0136) PO SCH (20:57)
[2018-08-05] MEDS: PRAZOSIN 1 MG CAP PO SCH (20:57)
[2018-08-05] MEDS: traZODone 50 MG TAB PO PRN (20:57)
[2018-08-06 06:46] VITALS: BP 118/73
[2018-08-06] MEDS: SERTRALINE 100 MG TAB PO SCH (09:14)
[2018-08-06] MEDS: FOLIC ACID 1 MG TAB PO SCH (09:14)
[2018-08-06] MEDS: FERROUS SULFATE 325MG TAB PO SCH (09:14)
[2018-08-06] MEDS: HALOPERIDOL 5 MG TAB PO SCH ×2 (09:52→21:15)
[2018-08-06 10:59] LABS: FREE THYROXINE INDEX 2.9 % (1.3-4.8); THYROID STIMULATING HORMONE 0.446 uIU/ML (0.358-3.740); THYROXINE (T4) 8.7 UG/DL (4.5-12.0)
--- NOTE | 2018-08-06 14:03 | MHIPNPDOC ---
[facility] Progress Note Progress Note DATE OF SERVICE: 08/06/18 HISTORY: Patient with numerous admissions poor compliance with long history of schizophrenia. VITAL SIGNS: See below. NEW TEST RESULTS:. . CURRENT MEDICATIONS: See below. MENTAL STATUS EXAMINATION: Patient is a 28-year old female, who is. In the past taken some Clozaril without proper follow-up. As of today. She is not flagrantly or overtly psychotic Speech: Is normal. Language skills are. Her disturbances. Thought processes including:, Not presently confused or apparently responding to internal stimuli Thought content:, Not presently, hallucinating, delusional, obsessive compulsive or phobic. Abstract reasoning, and computation: Intact. Description of associations: Loose association. Description of abnormal or psychotic thoughts:. No psychotic thought. At the moment. Judgment:. Fair. Insight: Good. Orientation: Full. Recent and remote memory: Intact. Attention span and concentration:. Good. Language: No disturbances. Fund of knowledge: Full. Mood: Good. Affect:, Congruent. DIAGNOSES: 1. Paranoid schizophrenia. ASSESSMENT: This 28-year-old female was had numerous admissions. She was placed during her last admission on Clozaril, but her follow-up and compliance is very poor. On admission she was confused and apparently responding to internal stimuli. She is not doing so today and due to the need for compliance when taking Clozaril and due to the fact the patient has been getting Haldol Decanoate shots, we are putting her back on oral Haldol and discontinuing her clozaril MANAGEMENT PLAN: As above. TIME SPENT:, 30 minutes. Vital Signs Vital Signs Date Time Temp Pulse Resp B/P (MAP) Pulse Ox O2 Delivery O2 Flow Rate FiO2 08/06/18 06:46 98.0 90 14 118/73 (88) 08/04/18 02:23 98 Room Air Laboratory Data 24H Labs Laboratory Tests 2 08/06/18 09:56: Thyroid Stimulating Hormone (TSH) 0.446, Free Thyroxine Index 2.9, Thyroxine (T4) 8.7, Triiodothyronine (T3) Uptake 33 Current Medications Current Medications Acetaminophen (Tylenol Tab) 650 mg Q6HP PRN PO HEADACHE or DISCOMFORT Last administered on 08/05/18at 19:35; Start 08/04/18 at 00:15 Al Hydrox/Mg Hydrox/Simethicone (Mylanta) 30 ml Q4HP PRN PO HEARTBURN/INDIGESTION; Start 08/04/18 at 00:15 Clozapine (Clozaril) 300 mg QHS PO Last administered on 08/05/18 20:57; Start 08/04/18 at 21:00; Stop 08/06/18 at 11:21; Status DC Ferrous Sulfate (Ferrous Sulfate) 325 mg DAILY PO Last administered on 08/06/18 09:14; Start 08/04/18 at 09:00 Folic Acid (Folic Acid) 1 mg DAILY PO Last administered on 08/06/18 09:14; Start 08/04/18 at 09:00 Haloperidol (Haldol) 5 mg BID PO Last administered on 08/06/18 09:52; Start 08/06/18 at 09:00 Home Med (Med Rec Complete!) ASDIRECTED XX ; Start 08/04/18 at 00:45; Stop 08/04/18 at 00:45; Status DC Magnesium Hydroxide (Milk Of Magnesia) 30 ml DAILYPRN PRN PO CONSTIPATION; Start 08/04/18 at 00:15 Prazosin HCl (Minipress) 1 mg QHS PO Last administered on 08/05/18 20:57; Start 08/04/18 at 21:00 Sertraline HCl (Zoloft) 100 mg DAILY PO Last administered on 08/06/18 09:14; Start 08/04/18 at 09:00 Trazodone HCl (Desyrel) 50 mg QHS PRN PO INSOMNIA Last administered on 08/05/18 20:57; Start 08/04/18 at 11:15 Trazodone HCl (Desyrel) 50 mg QHSP PRN PO INSOMNIA Last administered on 08/04/18 02:57; Start 08/04/18 at 00:15; Stop 08/04/18 at 11:19; Status DC Allergies Coded Allergies: Penicillins (Unverified Allergy, Unknown, 06/16/18) paliperidone (Unverified Adverse Reaction, Unknown, DROOLING, 06/16/18) A-FIB/CHADSVASC A-FIB History Current/History of A-Fib/PAF?: No Current Oral Anticoagulant The: No Treatment Treatment ordered: NONE TOBIAS SNIDER MD August 06, 2018 14:02
[2018-08-06] MEDS: ACETAMINOPHEN TAB 650MG DOSE (2X325MG) PO PRN (16:49)
[2018-08-06 18:05] VITALS: BP 138/88
[2018-08-06] MEDS: PRAZOSIN 1 MG CAP PO SCH (21:15)
[2018-08-06] MEDS: traZODone 50 MG TAB PO PRN (21:50)
[2018-08-07 06:39] VITALS: BP 120/63
[2018-08-07] MEDS: HALOPERIDOL 5 MG TAB PO SCH ×2 (09:53→20:30)
[2018-08-07] MEDS: FERROUS SULFATE 325MG TAB PO SCH (09:53)
[2018-08-07] MEDS: FOLIC ACID 1 MG TAB PO SCH (09:53)
[2018-08-07] MEDS: SERTRALINE 100 MG TAB PO SCH (09:53)
--- NOTE | 2018-08-07 10:32 | MHIPNPDOC ---
[facility] Progress Note Progress Note DATE OF SERVICE: 08/07/18 HISTORY: 28-year-old female. Extensive history of schizophrenia and noncompliance. VITAL SIGNS: See below. NEW TEST RESULTS: None. CURRENT MEDICATIONS: See below. MENTAL STATUS EXAMINATION: Patient is a 28-year old female, who is, is being treated for schizophrenia. In reviewing the case. I was notified. The patient has a very poor history of compliance and follow-up, and therefore decided to discontinue Clozaril. We started the patient back on Haldol since patient recently had a Haldol Decanoate injection today. Patient reports she feels "weird" and description of her symptoms of nervousness may be the onset of this akathisia . We started Cogentin today. Speech: Is normal. Language skills are. Unremarkable. Thought processes including: Feeling "weird". Thought content:. Nightmares. Abstract reasoning, and computation: Intact. Description of associations:. No loose association. Description of abnormal or psychotic thoughts:. No flagrant psychotic thought. At this time. Judgment:. Fair. Insight: Fair. Orientation: Fully oriented. Recent and remote memory:, Intact. Attention span and concentration:. Normal. Language:, As above. Fund of knowledge:, Limited Mood: Nervousness. Affect:, Congruent. DIAGNOSES: 1. Schizophrenia. ASSESSMENT: Chronic schizophrenia with noncompliance MANAGEMENT PLAN:. Continue patient on oral Haldol. TIME SPENT: 30 minutes. Vital Signs Vital Signs Date Time Temp Pulse Resp B/P (MAP) Pulse Ox O2 Delivery O2 Flow Rate FiO2 08/07/18 06:39 98.1 77 14 120/63 (82) 08/04/18 02:23 98 Room Air Current Medications Current Medications Acetaminophen (Tylenol Tab) 650 mg Q6HP PRN PO HEADACHE or DISCOMFORT Last administered on 08/06/18at 16:49; Start 08/04/18 at 00:15 Al Hydrox/Mg Hydrox/Simethicone (Mylanta) 30 ml Q4HP PRN PO HEARTBURN/INDIGESTION; Start 08/04/18 at 00:15 Clozapine (Clozaril) 300 mg QHS PO Last administered on 08/05/18at 20:57; Start 08/04/18 at 21:00; Stop 08/06/18 at 11:21; Status DC Ferrous Sulfate (Ferrous Sulfate) 325 mg DAILY PO Last administered on 08/07/18 09:53; Start 08/04/18 at 09:00 Folic Acid (Folic Acid) 1 mg DAILY PO Last administered on 08/07/18 09:53; Start 08/04/18 at 09:00 Haloperidol (Haldol) 5 mg BID PO Last administered on 08/07/18 09:53; Start 08/06/18 at 09:00 Home Med (Med Rec Complete!) ASDIRECTED XX ; Start 08/04/18 at 00:45; Stop 08/04/18 at 00:45; Status DC Magnesium Hydroxide (Milk Of Magnesia) 30 ml DAILYPRN PRN PO CONSTIPATION; Start 08/04/18 at 00:15 Prazosin HCl (Minipress) 1 mg QHS PO Last administered on 08/06/18at 21:15; Start 08/04/18 at 21:00 Sertraline HCl (Zoloft) 100 mg DAILY PO Last administered on 08/07/18 09:53; Start 08/04/18 at 09:00 Trazodone HCl (Desyrel) 50 mg QHS PRN PO INSOMNIA Last administered on 08/06/18at 21:50; Start 08/04/18 at 11:15 Trazodone HCl (Desyrel) 50 mg QHSP PRN PO INSOMNIA Last administered on 08/04/18at 02:57; Start 08/04/18 at 00:15; Stop 08/04/18 at 11:19; Status DC Allergies Coded Allergies: Penicillins (Unverified Allergy, Unknown, 06/16/18) paliperidone (Unverified Adverse Reaction, Unknown, DROOLING, 06/16/18) A-FIB/CHADSVASC A-FIB History Current/History of A-Fib/PAF?: No Current Oral Anticoagulant The: No Treatment Treatment ordered: NONE TOBIAS SNIDER MD August 07, 2018 10:32
[2018-08-07] MEDS: ACETAMINOPHEN TAB 650MG DOSE (2X325MG) PO PRN ×2 (11:17→20:33)
[2018-08-07] MEDS ORDERED: BENZTROPINE 1 MG TAB PO ONE (12:00)
[2018-08-07 18:00] VITALS: BP 137/73
[2018-08-07] MEDS: PRAZOSIN 1 MG CAP PO SCH (20:31)
[2018-08-07] MEDS: BENZTROPINE 1 MG TAB PO SCH (20:31)
[2018-08-07] MEDS: traZODone 50 MG TAB PO PRN (20:33)
[2018-08-08 06:51] VITALS: BP 120/70
[2018-08-08] MEDS: HALOPERIDOL 5 MG TAB PO SCH ×2 (08:59→21:35)
[2018-08-08] MEDS: SERTRALINE 100 MG TAB PO SCH (08:59)
[2018-08-08] MEDS: FERROUS SULFATE 325MG TAB PO SCH (08:59)
[2018-08-08] MEDS: BENZTROPINE 1 MG TAB PO SCH ×2 (08:59→21:35)
[2018-08-08] MEDS: FOLIC ACID 1 MG TAB PO SCH (08:59)
[2018-08-08] MEDS: ACETAMINOPHEN TAB 650MG DOSE (2X325MG) PO PRN ×2 (10:19→16:21)
--- NOTE | 2018-08-08 14:31 | MHIPNPDOC ---
[facility] Progress Note Progress Note DATE OF SERVICE: 08/08/18 HISTORY: 28-year-old female with history of paranoid schizophrenia. VITAL SIGNS: See below. NEW TEST RESULTS: None. CURRENT MEDICATIONS: See below. MENTAL STATUS EXAMINATION: Patient is a 28-year old female, who is improving significantly on present medication. Speech: no Disturbance. Language skills are intact. Thought processes including: No apparent disturbances in thought process. Thought content: Intact. Abstract reasoning, and computation:. Able to abstract. Description of associations:. No loose associations. Description of abnormal or psychotic thoughts: No present psychotic thoughts. Judgment:. Good. Insight: Good. Orientation: Intact. Recent and remote memory:, Intact. Attention span and concentration:, Intact. Language:. No abnormality. Fund of knowledge: Intact. Mood:. Good. Affect: bright. DIAGNOSES: 1. Paranoid schizophrenia. 2., Unstable residence. ASSESSMENT: 28-year-old female significantly improving with use of Haldol and has recently been able to arrange herself to get transitional living MANAGEMENT PLAN: Discharge planning. If patient continues stable. TIME SPENT:, 30 minutes. Vital Signs Vital Signs Date Time Temp Pulse Resp B/P (MAP) Pulse Ox O2 Delivery O2 Flow Rate FiO2 08/08/18 06:51 98.7 82 16 120/70 (87) 08/04/18 02:23 98 Room Air Current Medications Current Medications Acetaminophen (Tylenol Tab) 650 mg Q6HP PRN PO HEADACHE or DISCOMFORT Last administered on 08/08/18at 10:19; Start 08/04/18 at 00:15 Al Hydrox/Mg Hydrox/Simethicone (Mylanta) 30 ml Q4HP PRN PO HEARTBURN/INDIGESTION; Start 08/04/18 at 00:15 Benztropine Mesylate (Cogentin) 1 mg BID PO Last administered on 08/08/18at 08:59; Start 08/07/18 at 21:00; Stop 08/31/18 at 20:59 Clozapine (Clozaril) 300 mg QHS PO Last administered on 08/05/18at 20:57; Start 08/04/18 at 21:00; Stop 08/06/18 at 11:21; Status DC Ferrous Sulfate (Ferrous Sulfate) 325 mg DAILY PO Last administered on 08/08/18at 08:59; Start 08/04/18 at 09:00 Folic Acid (Folic Acid) 1 mg DAILY PO Last administered on 08/08/18 08:59; Start 08/04/18 at 09:00 Haloperidol (Haldol) 5 mg BID PO Last administered on 08/08/18 08:59; Start 08/06/18 at 09:00 Home Med (Med Rec Complete!) ASDIRECTED XX ; Start 08/04/18 at 00:45; Stop 08/04/18 at 00:45; Status DC Magnesium Hydroxide (Milk Of Magnesia) 30 ml DAILYPRN PRN PO CONSTIPATION; Start 08/04/18 at 00:15 Prazosin HCl (Minipress) 1 mg QHS PO Last administered on 08/07/18 20:31; Start 08/04/18 at 21:00 Sertraline HCl (Zoloft) 100 mg DAILY PO Last administered on 08/08/18 08:59; Start 08/04/18 at 09:00 Trazodone HCl (Desyrel) 50 mg QHS PRN PO INSOMNIA Last administered on 08/07/18at 20:33; Start 08/04/18 at 11:15 Trazodone HCl (Desyrel) 50 mg QHSP PRN PO INSOMNIA Last administered on at 02:57; Start 08/04/18 at 00:15; Stop 08/04/18 at 11:19; Status DC Allergies Coded Allergies: Penicillins (Unverified Allergy, Unknown, 06/16/18) paliperidone (Unverified Adverse Reaction, Unknown, DROOLING, 06/16/18) A-FIB/CHADSVASC A-FIB History Current/History of A-Fib/PAF?: No Current Oral Anticoagulant The: No Treatment Treatment ordered: NONE TOBIAS SNIDER MD August 08, 2018 14:31
[2018-08-08 18:38] VITALS: BP 135/66
[2018-08-08] MEDS: traZODone 50 MG TAB PO PRN (21:35)
[2018-08-08] MEDS: PRAZOSIN 1 MG CAP PO SCH (21:35)
[2018-08-09 06:43] VITALS: BP 105/54
[2018-08-09] MEDS: BENZTROPINE 1 MG TAB PO SCH ×2 (09:03→21:41)
[2018-08-09] MEDS: FOLIC ACID 1 MG TAB PO SCH (09:03)
[2018-08-09] MEDS: SERTRALINE 100 MG TAB PO SCH (09:03)
[2018-08-09] MEDS: HALOPERIDOL 5 MG TAB PO SCH ×2 (09:03→21:41)
[2018-08-09] MEDS: FERROUS SULFATE 325MG TAB PO SCH (09:03)
--- NOTE | 2018-08-09 14:46 | MHIPNPDOC ---
[facility] Progress Note Progress Note DATE OF SERVICE: 08/09/18 HISTORY: 28-year-old female, long history schizophrenia, presently treated with Haldol. VITAL SIGNS: See below. NEW TEST RESULTS:, None. CURRENT MEDICATIONS: See below. MENTAL STATUS EXAMINATION: Patient is a 28-year old female, who is affectively improved. Speech: Is. No abnormalities. Language skills are intact. Thought processes including:. Intact. Thought content: Denies hallucinations or delusions. Abstract reasoning, and computation:. Minimal. Description of associations: Loose association. Description of abnormal or psychotic thoughts: No present psychotic thoughts. Judgment:. Good. Insight: Good. Orientation:. Intact. Recent and remote memory: Intact. Attention span and concentration:. Intact. Language: As above. Fund of knowledge:. Intact. Mood: Good. Affect: Right. DIAGNOSES: 1. Paranoid schizophrenia. 2., Stressors of living situation. . ASSESSMENT: Paranoid schizophrenia, presently successfully treated MANAGEMENT PLAN:, Discharged to outpatient treatment. Use of decanoate presently planned, but may be changed to Clazuril an outpatient basis. TIME SPENT: 30 minutes. Vital Signs Vital Signs Date Time Temp Pulse Resp B/P (MAP) Pulse Ox O2 Delivery O2 Flow Rate FiO2 08/09/18 06:43 97.7 74 14 105/54 (71) 08/04/18 02:23 98 Room Air Current Medications Current Medications Acetaminophen (Tylenol Tab) 650 mg Q6HP PRN PO HEADACHE or DISCOMFORT Last administered on 08/08/18 16:21; Start 08/04/18 at 00:15 Al Hydrox/Mg Hydrox/Simethicone (Mylanta) 30 ml Q4HP PRN PO HEARTBURN/INDIGESTION; Start 08/04/18 at 00:15 Benztropine Mesylate (Cogentin) 1 mg BID PO Last administered on 08/09/18 09:03; Start 08/07/18 at 21:00; Stop 08/31/18 at 20:59 Clozapine (Clozaril) 300 mg QHS PO Last administered on 08/05/18at 20:57; Start 08/04/18 at 21:00; Stop 08/06/18 at 11:21; Status DC Ferrous Sulfate (Ferrous Sulfate) 325 mg DAILY PO Last administered on 08/09/18at 09:03; Start 08/04/18 at 09:00 Folic Acid (Folic Acid) 1 mg DAILY PO Last administered on 08/09/18 09:03; Start 08/04/18 at 09:00 Haloperidol (Haldol) 5 mg BID PO Last administered on 08/09/18 09:03; Start 08/06/18 at 09:00 Home Med (Med Rec Complete!) ASDIRECTED XX ; Start 08/04/18 at 00:45; Stop 08/04/18 at 00:45; Status DC Magnesium Hydroxide (Milk Of Magnesia) 30 ml DAILYPRN PRN PO CONSTIPATION; Start 08/04/18 at 00:15 Prazosin HCl (Minipress) 1 mg QHS PO Last administered on 08/08/18 21:35; Start 08/04/18 at 21:00 Sertraline HCl (Zoloft) 100 mg DAILY PO Last administered on 08/09/18 09:03; Start 08/04/18 at 09:00 Trazodone HCl (Desyrel) 50 mg QHS PRN PO INSOMNIA Last administered on 08/08/18 21:35; Start 08/04/18 at 11:15 Trazodone HCl (Desyrel) 50 mg QHSP PRN PO INSOMNIA Last administered on 08/04/18 02:57; Start 08/04/18 at 00:15; Stop 08/04/18 at 11:19; Status DC Allergies Coded Allergies: Penicillins (Unverified Allergy, Unknown, 06/16/18) paliperidone (Unverified Adverse Reaction, Unknown, DROOLING, 06/16/18) A-FIB/CHADSVASC A-FIB History Current/History of A-Fib/PAF?: No Current PO Anticoag Therapy: No Treatment Treatment ordered: NONE Reason Anticoagulant not given: Other Other reason anticoagulant not: not neccessary TOBIAS SNIDER MD August 09, 2018 14:46
[2018-08-09] MEDS: ACETAMINOPHEN TAB 650MG DOSE (2X325MG) PO PRN (15:04)
[2018-08-09 18:08] VITALS: BP 121/59
[2018-08-09 21:42] VITALS: BP 123/67
[2018-08-09] MEDS: PRAZOSIN 1 MG CAP PO SCH (21:42)
[2018-08-09] MEDS: traZODone 50 MG TAB PO PRN (22:15)
[2018-08-10 06:44] VITALS: BP 118/61
[2018-08-10] MEDS ORDERED: BENZ-52 PO (07:16)
[2018-08-10] MEDS ORDERED: TRAZO50TA PO (07:16)
[2018-08-10] MEDS ORDERED: HALO5TA PO (07:16)
[2018-08-10] MEDS ORDERED: SERT-138 PO (07:16)
[2018-08-10] MEDS ORDERED: MINI1CAP PO (07:16)
--- NOTE | 2018-08-10 07:24 | MHDSPDOC ---
[facility] Discharge Summary Discharge Summary DATE OF ADMISSION: August 04, 2018 at 00:09 DATE OF DISCHARGE: July DISCHARGE DIAGNOSES: 1. Schizophrenia. 2., Stressors of housing. REASON FOR ADMISSION:. Patient decompensated despite the treatment CONSULTANTS INVOLVED: None TREATMENT AND PROGRESS ON THE UNIT :. Patient was given oral Haldol since she had previously had a Haldol Decanoate injection. Patient improved significantly and symptoms were alleviated. HOSPITAL COURSE:. Patient was cooperative on the unit and tolerated her medication. Cogentin was added to her oral Haldol and patient was scheduled for her decannulated shot. Earns about safety of using Clozaril due to patient's inconsistency and noncompliance were discussed, but patient will be now getting stable housing and the decision to use Clazuril may be initiated by outpatient. On discharge, patient denied hallucinations, delusions, obsessions, compulsions and phobias and was in good mood DISCHARGE ASSESSMENT:. Schizophrenia, apparently not controlled significantly enough by Haldol to cannulate MENTAL STATUS EXAMINATION ON DISCHARGE: Patient is a 28-year old female, who is going to be discharged today with improvement in her psychotic symptoms. Speech is, good. Language skills are intact. Thought processes including:. No disturbance of thought process. Thought content: Everyday living issues. Abstract reasoning, and computation: Able to abstract. Description of associations:. No loose associations. Description of abnormal or psychotic thoughts:. No psychotic thought. Judgment: Good. Insight:. Fair. Orientation to intact 3. Recent and remote memory: Intact. Attention span and concentration:, Good. Language: As above. Fund of knowledge:. Full. Mood: Good. Affect: Bright. MEDICATIONS ON DISCHARGE: -Haldol oral for psychotic symptoms. -. Sertraline for pressure. -. Trazodone for insomnia PLAN/FOLLOWUP ARRANGEMENTS: Patient and staff of [facility] stable housing and stable follow-up care. The amount of time spent in the coordination of care for this patient was approximately. 45 minutes. Vital Signs/I&Os Vital Signs Date Time Temp Pulse Resp B/P (MAP) Pulse Ox O2 Delivery O2 Flow Rate FiO2 08/10/18 06:44 98.9 69 14 118/61 (80) 08/04/18 02:23 98 Room Air Medications Scheduled Benztropine Mesylate (Benztropine Mesylate) 1 Mg Tablet, 1 MG PO BID for Akathisia for 10 Days, #20 Docusate Sodium (Colace) 100 Mg Cap, 100 MG PO DAILY, (Reported) Ferrous Sulfate (Ferrous Sulfate) 325 Mg Tab, 325 MG PO DAILY, (Reported) Folic Acid (Folic Acid) 1 Mg Tab, 1 MG PO DAILY, (Reported) Haloperidol (Haloperidol) 5 Mg Tablet, 5 MG PO BID for Psychosis for 10 Days, #20 Haloperidol Decanoate (Haloperidol Decanoate) 100 Mg/Ml Soln, 100 MG IM QMONTH, (Reported) PATIENT STATES SHE LAST HAD INJECTION BEGINNING OF THIS MONTH Prazosin HCl (Minipress) 1 Mg Capsule, 1 MG PO QHS for Nightmares for 10 Days, #10 Sertraline HCl (Sertraline HCl) 100 Mg Tablet, 100 MG PO DAILY for Mood for 10 Days, #10 Scheduled PRN Trazodone HCl (Trazodone HCl) 50 Mg Tablet, 50 MG PO QHS PRN for INSOMNIA for 10 Days, #10 Allergies Coded Allergies: Penicillins (Unverified Allergy, Unknown, 06/16/18) paliperidone (Unverified Adverse Reaction, Unknown, DROOLING, 06/16/18) TOBIAS SNIDER MD August 10, 2018 07:24
[2018-08-10] MEDS: SERTRALINE 100 MG TAB PO SCH (09:16)
[2018-08-10] MEDS: HALOPERIDOL 5 MG TAB PO SCH (09:16)
[2018-08-10] MEDS: FERROUS SULFATE 325MG TAB PO SCH (09:16)
[2018-08-10] MEDS: FOLIC ACID 1 MG TAB PO SCH (09:17)
[2018-08-10] MEDS: BENZTROPINE 1 MG TAB PO SCH (09:17)
== END 2018-08-10 12:50 | disposition home or self-care (01) | DRG 750 ==
LOC: M ED 21:24 → M ED INP 08-04 00:09 → M PSY 08-04 02:15
PROVIDERS: ADMIT Psychiatry & Neurology Child & Adolescent Psychiatry; ATTEND Psychiatry & Neurology Child & Adolescent Psychiatry
DX: F20.0 Paranoid schizophrenia (principal); Z79.899 Other long term (current) drug therapy; Z88.0 Allergy status to penicillin; Z88.8 Allergy status to other drugs, medicaments and biological substances; I10 Essential (primary) hypertension; E66.9 Obesity, unspecified; D64.9 Anemia, unspecified; F17.210 Nicotine dependence, cigarettes, uncomplicated; Z91.19 Patient's noncompliance with other medical treatment and regimen; Z91.14 Patient's other noncompliance with medication regimen; Z59.8 Other problems related to housing and economic circumstances

== ENCOUNTER 2018-08-10 20:42 | Emergency (ER) | payer OTHER ==
[~2018-08-10] VITALS: Ht 162.6 cm; Wt 45.5 kg
[~2018-08-10 20:42] MED LIST changes: +MINI1CAP PO; +PRAZ1CAP PO; -TRAZ-160 PO; +TRAZ-252 PO; +TRAZ1TAB10 PO; -TRAZO50TA PO
[2018-08-10] MEDS ORDERED: ONDANSETRON 4 MG ORAL DISINTEGRATING TAB (Q0162 PER 1MG) PO ONE (21:30)
[2018-08-10 21:51] LABS: BASO % 0.3 % (0.0-1.0); EOS # 0.1 10^3/uL (0.0-0.50); EOS % 1.8 % (0.0-3.0); HEMATOCRIT 31.5 % (36.0-47.0); HEMOGLOBIN 10.6 g/dl (12.0-15.5); LYMPH # 2.7 10^3/uL (1.5-6.5); LYMPH % 34.1 % (24.0-44.0); MEAN CORPUSCULAR HEMOGLOBIN 29.9 pg (27.0-33.0); MEAN CORPUSCULAR HGB CONC 33.7 g/dl (32.0-36.5); MONO # 0.6 10^3/uL (0.0-0.8); MONO % 7.1 % (0.0-5.0); NEUTROPHILS # 4.4 10^3/uL (1.8-7.7); NEUTROPHILS % 56.4 % (36.0-66.0); PLATELET COUNT, AUTOMATED 274 10^3/uL (150-450); RED BLOOD COUNT 3.54 10^6/uL (4.00-5.40); WHITE BLOOD COUNT 7.8 10^3/uL (4.0-10.0)
[2018-08-10 22:08] LABS: ALBUMIN 4.1 GM/DL (3.2-5.2); ALT/SGPT 30 U/L (12-78); BILIRUBIN,DIRECT < 0.1 MG/DL (0.0-0.2); BILIRUBIN,TOTAL 0.3 MG/DL (0.2-1.0); BLOOD UREA NITROGEN 10 MG/DL (7-18); CALCIUM LEVEL 9.2 MG/DL (8.5-10.1); CARBON DIOXIDE LEVEL 25 MEQ/L (21-32); CHLORIDE LEVEL 107 MEQ/L (98-107); CREATININE FOR GFR 0.62 MG/DL (0.55-1.30); GLOMERULAR FILTRATION RATE > 60.0 (>60); GLUCOSE, FASTING 83 MG/DL (70-100); LIPASE 56 U/L (73-393); POTASSIUM SERUM 3.6 MEQ/L (3.5-5.1); SODIUM LEVEL 139 MEQ/L (136-145); TOTAL PROTEIN 7.4 GM/DL (6.4-8.2)
[2018-08-10 22:51] VITALS: BP 122/68
== END 2018-08-10 22:53 | disposition home or self-care (01) ==
LOC: M ED 20:42
DX: R11.2 Nausea with vomiting, unspecified (principal); R19.7 Diarrhea, unspecified; R10.9 Unspecified abdominal pain; J45.909 Unspecified asthma, uncomplicated; E03.9 Hypothyroidism, unspecified; R56.9 Unspecified convulsions; F31.9 Bipolar disorder, unspecified; F41.9 Anxiety disorder, unspecified; F25.9 Schizoaffective disorder, unspecified; Z79.899 Other long term (current) drug therapy; Z87.19 Personal history of other diseases of the digestive system
CPT/HCPCS: 36415; 80048; 80076; 81001; 83690; 85025; 87086; 99283; Q0162

== ENCOUNTER → 2018-08-20 | Outpatient (CLI) | payer OTHER ==
--- NOTE | 2018-08-20 18:42 | ECGEPIP ---
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 Electronically Signed on 08-20-2018 18:42:04 EDT by Haja Talavera
== END ==
LOC: M EKG 10:55
PROVIDERS: ATTEND Nurse Practitioner Psychiatric/Mental Health
DX: G24.01 Drug induced subacute dyskinesia (principal)

== ENCOUNTER → 2018-09-18 | Outpatient (CLI) | payer OTHER ==
--- NOTE | 2018-09-18 16:17 | REP ---
Clinical: Left lower quadrant pain. Ovarian cyst. Comparison: 07/29/2018 . Technique: Transabdominal pelvic ultrasound followed by transvaginal examination for better evaluation of the endometrium and adnexa with color Doppler evaluation of the ovaries. Findings: Bladder is unremarkable and measures 8.7 x 8.5 x 6.8 cm . Retroverted uterus measures 8.1 x 4.6 x 5.6 cm with 2.1 x 1.4 x 2.8 cm intramural fundal fibroid . The endometrial complex measures 4.8 mm thickness. No discrete uterine or endometrial abnormalities are appreciated. Bilateral ovaries are normal in appearance and vascularity without evidence for torsion. Right ovary measures 3.4 x 1.9 x 2.4 cm ; R I = 0.47 . Left ovary measures 3.7 x 2.0 x 3.3 cm ; R I = 0.56 . No pelvic fluid or adnexal mass lesion . Impression: 1. retroverted uterus with 2.8 cm intramural fundal fibroid. 2. Normal ovaries.
== END ==
LOC: M WHC 14:04
PROVIDERS: ATTEND Nurse Practitioner Women's Health
DX: N83.202 Unspecified ovarian cyst, left side (principal)

== ENCOUNTER 2018-11-12 14:54 | Emergency (ER) | payer OTHER ==
[~2018-11-12] VITALS: Ht 162.6 cm; Wt 85.9 kg
[2018-11-12 16:17] LABS: BASO % 0.4 % (0.0-1.0); EOS # 0.4 10^3/uL (0.0-0.50); EOS % 5.9 % (0.0-3.0); HEMATOCRIT 36.1 % (36.0-47.0); HEMOGLOBIN 11.9 g/dl (12.0-15.5); LYMPH # 3.2 10^3/uL (1.5-6.5); LYMPH % 45.7 % (24.0-44.0); MEAN CORPUSCULAR HEMOGLOBIN 29.3 pg (27.0-33.0); MEAN CORPUSCULAR VOLUME 88.9 fl (80.0-96.0); MONO # 0.4 10^3/uL (0.0-0.8); MONO % 5.7 % (0.0-5.0); NEUTROPHILS # 2.9 10^3/uL (1.8-7.7); NEUTROPHILS % 42.2 % (36.0-66.0); PLATELET COUNT, AUTOMATED 262 10^3/uL (150-450); RED BLOOD COUNT 4.06 10^6/uL (4.00-5.40)
[2018-11-12 16:40] LABS: ALT/SGPT 23 U/L (12-78); BILIRUBIN,DIRECT < 0.1 MG/DL (0.0-0.2); BILIRUBIN,TOTAL 0.3 MG/DL (0.2-1.0); BLOOD UREA NITROGEN 8 MG/DL (7-18); CALCIUM LEVEL 9.9 MG/DL (8.5-10.1); CARBON DIOXIDE LEVEL 28 MEQ/L (21-32); CHLORIDE LEVEL 107 MEQ/L (98-107); CREATININE FOR GFR 0.67 MG/DL (0.55-1.30); GLOMERULAR FILTRATION RATE > 60.0 (>60); GLUCOSE, FASTING 96 MG/DL (70-100); LIPASE 62 U/L (73-393); POTASSIUM SERUM 4.1 MEQ/L (3.5-5.1); SODIUM LEVEL 138 MEQ/L (136-145); TOTAL PROTEIN 7.8 GM/DL (6.4-8.2)
[2018-11-12 19:21] VITALS: BP 131/74
[2018-11-12 19:44] LABS: CHLAMYDIA DNA AMPLIFICATION NEGATIVE (NEGATIVE); GC DNA AMPLIFICATION NEGATIVE (NEGATIVE)
--- NOTE | 2018-11-12 20:13 | REPVR ---
EXAM: US Pelvis Complete, Transabdominal and US Pelvis, Transvaginal EXAM DATE/TIME: 11/12/2018 6:23 PM CLINICAL HISTORY: 28 years old, female; Pelvic pain; Additional info: Pelvic exam RO ov cyst/torision TECHNIQUE: Imaging protocol: Real-time transabdominal and transvaginal pelvic ultrasound (complete) with image documentation. Transvaginal imaging was used for better evaluation of the endometrium and adnexa. COMPARISON: PELVIS NON-OB COMPLETE US 09/18/2018 1:09 PM FINDINGS: Uterus/cervix: The uterus measures 8.2 x 5.5 x 5.4 cm. The endometrial stripe measures 2.1 cm, which is thickened. This is new compared to the prior study. Endometrial hyperplasia is suggested, although additional endometrial pathology cannot be excluded. Within the fundus of the uterus, there is an intramural hypoechoic mass/fibroid measuring 1.4 x 1.0 x 0.8 cm. This has decreased in size compared to the prior study. The uterus is retroverted. Right adnexa: The right ovary measures 4.0 x 2.5 x 1.9 cm. Multiple follicles are identified within the right ovary. Within the right ovary, there is a thick-walled complex cyst or corpus luteum cyst. This measures 1.9 x 1.9 x 2.0 cm. There is preservation of blood flow within the right ovary. Left adnexa: The left ovary measures 3.2 x 1.7 x 2.3 cm. Multiple follicles are identified within the left ovary. There is preservation of blood flow within the left ovary. Free fluid: Trace free fluid is identified within the pelvis. Bladder: No significant bladder wall thickening. IMPRESSION: 1. The endometrial stripe measures 2.1 cm, which is thickened. This is new compared to the prior study. Endometrial hyperplasia is suggested, although additional endometrial pathology cannot be excluded. Further clinical evaluation and follow-up ultrasonography recommended. 2. Within the right ovary, there is a new thick-walled complex cyst or corpus luteum cyst. This measures 1.9 x 1.9 x 2.0 cm. 3. Within the fundus of the uterus, there is an intramural fibroid measuring 1.4 x 1.0 x 0.8 cm. This has decreased in size compared to the prior study. 4. Trace free fluid is identified within the pelvis. 5. There is preservation of blood flow within the ovaries bilaterally. Electronically signed by: Heladio Celestin On 11/12/2018 20:13:17 PM
--- NOTE | 2018-11-13 07:09 | ED PDOC ---
Post-Departure Follow-Up [facility] - dr pace faxed formal report of pelvic u s for fu johny Perrin-Winnie Green MD Nov 13, 2018 07:09
== END 2018-11-12 19:22 | disposition home or self-care (01) ==
LOC: M ED 14:54
DX: R10.2 Pelvic and perineal pain (principal); F44.5 Conversion disorder with seizures or convulsions; K52.9 Noninfective gastroenteritis and colitis, unspecified; Z87.448 Personal history of other diseases of urinary system; N83.299 Other ovarian cyst, unspecified side; F20.9 Schizophrenia, unspecified; Z72.0 Tobacco use; Z79.899 Other long term (current) drug therapy; Z88.0 Allergy status to penicillin; Z88.8 Allergy status to other drugs, medicaments and biological substances

== ENCOUNTER → 2018-11-29 | Outpatient (REF) | payer OTHER ==
[2018-11-29 17:28] LABS: CHOLESTEROL RISK RATIO 5.65 (<5); HEMOGLOBIN 11.6 g/dl (12.0-15.5); MEAN CORPUSCULAR HEMOGLOBIN 28.7 pg (27.0-33.0); MEAN CORPUSCULAR HGB CONC 32.2 g/dl (32.0-36.5); MEAN CORPUSCULAR VOLUME 89.1 fl (80.0-96.0); PERCENT SATURATION 29.4 % (13.2-45.0); PLATELET COUNT, AUTOMATED 281 10^3/uL (150-450); RED BLOOD COUNT 4.04 10^6/uL (4.00-5.40); WHITE BLOOD COUNT 5.9 10^3/uL (4.0-10.0)
[2018-11-29 17:34] LABS: TOTAL 25(OH) VITAMIN D 20.2 NG/ML (30.0-100.0)
[2018-11-29 19:22] LABS: HEMOGLOBIN A1c 5.8 %
== END ==
LOC: M SFHCPLAZ 10:50
PROVIDERS: ATTEND Family Medicine
DX: F20.0 Paranoid schizophrenia (principal); Z86.2 Personal history of diseases of the blood and blood-forming organs and certain disorders involving the immune mechanism; R79.89 Other specified abnormal findings of blood chemistry

== ENCOUNTER → 2018-12-25 | Outpatient (REF) | payer OTHER | LOC: M SFHCWAGY 15:09 | PROVIDERS: ATTEND Nurse Practitioner Women's Health | DX: R93.89 Abnormal findings on diagnostic imaging of other specified body structures (principal) ==

== ENCOUNTER → 2018-12-25 | Outpatient (CLI) | payer OTHER ==
--- NOTE | 2018-12-25 16:20 | REP ---
Pelvic ultrasound including transabdominal, endovaginal and Doppler ultrasound assessment: Comparison is 11/12/2018. On the comparison study was a there is endometrial thickening measuring up to 2.1 cm, thick-walled complex right ovarian cyst measuring up to 2.0 cm and a uterine fundal fibroid measuring up to 1.4 cm. The bladder is adequately distended. The uterus is retroverted and normal size measuring 7.1 x 4.5 x 5.1 cm. There is a fundal fibroid measuring 1.0 x 0.9 x 1.2 cm . The fibroid is intramural. The endometrium is not thickened measuring 4.7 mm. Right ovary: The right ovary measures 3.9 x 2.3 x 2.3 cm. There is no dominant mass or cyst. Left ovary: The left ovary measures 3.2 x 2.0 x 2.8 cm. There is no dominant mass or cyst. There is vascular flow in both ovaries. The Doppler resistive index in the parenchymal arteries of the right ovary is 0.55 left ovary 0.46. There is a moderate volume of free fluid in the pelvis. Impression: There is a fundal uterine intramural fibroid measuring up to 1.4 cm. The endometrium is not thickened measuring 4.7 mm. The previous right ovarian cyst has involuted. There is a moderate volume of free fluid in the pelvis. Electronically Signed by Markus Ny MD 12/25/2018 02:51 P
== END ==
LOC: M WHC 13:39
PROVIDERS: ATTEND Nurse Practitioner Women's Health
DX: R10.2 Pelvic and perineal pain (principal); R93.89 Abnormal findings on diagnostic imaging of other specified body structures; D25.0 Submucous leiomyoma of uterus; Z87.42 Personal history of other diseases of the female genital tract

== ENCOUNTER → 2019-01-15 | Outpatient (REF) | payer OTHER ==
[~2019-01-15] MED LIST changes: -SERT-155 PO; +SERT50TA29 PO
[2019-01-15 15:43] LABS: CHLAMYDIA DNA AMPLIFICATION NEGATIVE (NEGATIVE); GC DNA AMPLIFICATION NEGATIVE (NEGATIVE)
== END ==
LOC: M SFHCPLAZ 08:33
PROVIDERS: ATTEND Family Medicine
DX: Z11.3 Encounter for screening for infections with a predominantly sexual mode of transmission (principal)

== ENCOUNTER → 2019-04-01 | Outpatient (REF) | payer OTHER ==
[~2019-04-01] MED LIST changes: +LORA2TAB14 PO; -LORA2TAB9 PO; -SULF1TAB72 PO; +SULF400T14 PO
[2019-04-01 15:40] LABS: CHLAMYDIA DNA AMPLIFICATION NEGATIVE (NEGATIVE); GC DNA AMPLIFICATION NEGATIVE (NEGATIVE)
== END ==
LOC: M SFHCWAGY 13:37
PROVIDERS: ATTEND Nurse Practitioner Women's Health
DX: Z11.3 Encounter for screening for infections with a predominantly sexual mode of transmission (principal)

== ENCOUNTER → 2019-04-18 | Outpatient (REF) | payer OTHER ==
[2019-04-19 12:31] LABS: HEMOGLOBIN A1c 5.9 %
== END ==
LOC: M SFHCCLAY 15:29
PROVIDERS: ATTEND Student in an Organized Health Care Education/Training Program
DX: R73.03 Prediabetes (principal)

== ENCOUNTER → 2019-07-04 | Outpatient (REF) | payer OTHER ==
[2019-07-04 16:23] LABS: HEMATOCRIT 36.5 % (36.0-47.0); HEMOGLOBIN 11.9 g/dl (12.0-15.5); MEAN CORPUSCULAR HEMOGLOBIN 29.2 pg (27.0-33.0); MEAN CORPUSCULAR HGB CONC 32.6 g/dl (32.0-36.5); MEAN CORPUSCULAR VOLUME 89.7 fl (80.0-96.0); PLATELET COUNT, AUTOMATED 285 10^3/uL (150-450); RED BLOOD COUNT 4.07 10^6/uL (4.00-5.40); WHITE BLOOD COUNT 6.9 10^3/uL (4.0-10.0)
[2019-07-04 16:31] LABS: IRON (FE) 60 UG/DL (50-170)
[2019-07-04 16:39] LABS: TOTAL 25(OH) VITAMIN D 17.2 NG/ML (30.0-100.0)
[2019-07-04 16:40] LABS: FOLATE > 24.0 NG/ML (>5.4); VITAMIN B12 LEVEL 599 PG/ML (247-911)
[2019-07-04 16:44] LABS: HEMOGLOBIN A1c 5.7 %
== END ==
LOC: M SFHCPLAZ 11:54
PROVIDERS: ATTEND Family Medicine
DX: F50.89 Other specified eating disorder (principal); R73.03 Prediabetes

== ENCOUNTER 2019-08-03 15:44 | Emergency (ER) | payer OTHER ==
[~2019-08-03] VITALS: Ht 162.6 cm; Wt 89.1 kg
[2019-08-03] MEDS ORDERED: VITA50005 (16:03)
[2019-08-03 16:23] LABS: BASO # 0.1 10^3/uL (0.0-0.2); BASO % 0.6 % (0.0-1.0); EOS # 0.5 10^3/uL (0.0-0.5); EOS % 6.7 % (0.0-3.0); HEMOGLOBIN 11.7 g/dl (12.0-15.5); LYMPH # 3.2 10^3/uL (1.5-5.0); LYMPH % 41.7 % (24.0-44.0); MEAN CORPUSCULAR HEMOGLOBIN 29.5 pg (27.0-33.0); MEAN CORPUSCULAR HGB CONC 32.5 g/dl (32.0-36.5); MEAN CORPUSCULAR VOLUME 90.7 fl (80.0-96.0); MONO # 0.5 10^3/uL (0.0-0.8); MONO % 6.6 % (0.0-5.0); NEUTROPHILS # 3.4 10^3/uL (1.5-8.5); PLATELET COUNT, AUTOMATED 281 10^3/uL (150-450); RED BLOOD COUNT 3.97 10^6/uL (4.00-5.40); WHITE BLOOD COUNT 7.7 10^3/uL (4.0-10.0)
[2019-08-03 16:35] LABS: INR 1.03; PROTHROMBIN TIME 13.2 SECONDS (11.8-14.0)
[2019-08-03 16:51] VITALS: BP 121/65
== END 2019-08-03 16:53 | disposition home or self-care (01) ==
LOC: M ED 15:44
DX: R04.0 Epistaxis (principal); J45.909 Unspecified asthma, uncomplicated; Z79.899 Other long term (current) drug therapy; Z88.0 Allergy status to penicillin; Z88.8 Allergy status to other drugs, medicaments and biological substances; F17.210 Nicotine dependence, cigarettes, uncomplicated

== ENCOUNTER → 2019-09-02 | Outpatient (CLI) | payer OTHER ==
[~2019-09-02] MED LIST changes: +AMAN100T PO; +VITA50005; +VITAD1000T PO
== END ==
LOC: M LABSMTC 10:51
PROVIDERS: ATTEND Anesthesiology
DX: Z03.818 Encounter for observation for suspected exposure to other biological agents ruled out (principal); Z11.59 Encounter for screening for other viral diseases
CPT/HCPCS: C9803; U0003

== ENCOUNTER 2019-09-05 06:41 | Day surgery (SDC) | payer OTHER ==
[~2019-09-05] VITALS: Ht 162.6 cm; Wt 88.9 kg
[~2019-09-05 06:41] MED LIST changes: +LIDOCAINE 1% MDV 20ML VIAL SQ PRN; +LR 1,000 ML IV ONE; +dexameTHASONE 4 MG/ML 1ML VIAL (J1100 PER 1MG) IV ONE
[2019-09-05] MEDS ORDERED: fentaNYL 100 MCG/2 ML INJECTION (J3010) As Ordered ONE (07:04)
[2019-09-05] MEDS ORDERED: MIDAZOLAM INJ 2MG/2ML VIAL (J2250 PER 1MG) As Ordered ONE (07:04)
[2019-09-05] MEDS ORDERED: LIDOCAINE 2% 100MG/5ML SDV (FOR ANES.) As Ordered ONE (07:05)
[2019-09-05] MEDS ORDERED: propofoL 200 MG/20 ML VIAL As Ordered ONE (07:05)
[2019-09-05] MEDS ORDERED: ONDANSETRON 4MG/2ML VIAL As Ordered ONE (07:05)
[2019-09-05] MEDS ORDERED: dexameTHASONE 4 MG/ML 1ML VIAL (J1100 PER 1MG) As Ordered ONE (07:05)
[2019-09-05] MEDS ORDERED: OXYMETAZOLINE NASAL SPRAY (AFRIN) As Ordered ONE (08:10)
[2019-09-05] MEDS ORDERED: LIDOCAINE W/EPINEPHRINE 1% 20ML VIAL As Ordered ONE (08:10)
[2019-09-05] MEDS ORDERED: EPINEPHrine 1MG/ML INJ 30ML MD-VIAL As Ordered ONE (08:11)
[2019-09-05] MEDS ORDERED: LIDOCAINE 1% MDV 20ML VIAL As Ordered ONE (08:11)
[2019-09-05] MEDS ORDERED: ACETAMINOPHEN 1000MG 100ML IV BTL (OFIRMEV) (J0131 PER 10MG) As Ordered ONE (08:16)
[2019-09-05] MEDS ORDERED: ROCURONIUM BROMIDE 50 MG/5 ML VIAL As Ordered ONE (08:25)
[2019-09-05] MEDS ORDERED: SUCCINYLCHOLINE 100 MG/5 ML SYRINGE (J0330) As Ordered ONE (08:25)
[2019-09-05] MEDS ORDERED: BACITRACIN OINTMENT 30GM TUBE As Ordered ONE (08:42)
[2019-09-05] MEDS ORDERED: SILVER NITRATE APPLICATOR As Ordered ONE (08:45)
[2019-09-05] MEDS ORDERED: LR 1,000 ML IV SCH ×2 (09:15)
[2019-09-05] MEDS ORDERED: fentaNYL 100 MCG/2 ML INJECTION (J3010) IV PRN (09:15)
[2019-09-05] MEDS ORDERED: ONDANSETRON 4MG/2ML VIAL IV PRN (09:15)
[2019-09-05 09:40] VITALS: BP 125/58
--- NOTE | 2019-09-07 09:01 | RO ---
DATE OF PROCEDURE: 09/05/2019 PREOPERATIVE DIAGNOSIS: Right epistaxis. POSTOPERATIVE DIAGNOSIS: Right epistaxis. PROCEDURE PERFORMED: 1. Nasal endoscopy. 2. Control of right anterior epistaxis.. SURGEON: Aakash Purdy MD SUPERVISOR AGENCY APPOINTMENTS: ANESTHESIA: General. CLINICAL PREAMBLE: This 29-year-old woman presented to the office with recurrent right epistaxis. Management options including surgery listed above had been discussed. The patient understood and consented to the procedure. OR NARRATION: The patient was identified in preoperative holding and brought to the operating room in stable condition. In supine position on the operating room table, the patient received general anesthesia, followed by orotracheal intubation without incident. The patient was prepped and draped in the usual fashion for the procedure. Both sides of the nasal cavity were decongested using 1:1000 epinephrine. The pledgets were removed. Both sides of the nasal cavity were then inspected using the 0 degree rigid nasal endoscope. Telangiectatic blood vessels were noted over the right anterior nasal septum. There was no lesion visualized in the right or the left sphenopalatine area. No mass lesion was noted in the nasopharyngeal area. At this time, using the silver nitrate, the telangiectatic vessels over the right anterior nasal septum were successfully cauterized. Bacitracin ointment was applied. At the end of the procedure, sponge and instrument counts were correct. No complications were encountered. Estimated blood loss was less than 1 mL. General anesthesia was reversed and the patient was extubated and brought to the recovery room in stable condition.
== END 2019-09-05 10:05 | disposition home or self-care (01) ==
LOC: M SDC 06:41
PROVIDERS: ATTEND Otolaryngology
DX: R04.0 Epistaxis (principal); E78.00 Pure hypercholesterolemia, unspecified; K21.9 Gastro-esophageal reflux disease without esophagitis; D64.9 Anemia, unspecified; F25.0 Schizoaffective disorder, bipolar type; Z88.0 Allergy status to penicillin; Z88.8 Allergy status to other drugs, medicaments and biological substances; Z79.899 Other long term (current) drug therapy
CPT/HCPCS: 31238; 81025; J0131; J0330; J1100; J2250; J2405; J3010

== ENCOUNTER 2019-11-05 21:27 | Emergency (ER) | payer OTHER ==
[~2019-11-05] VITALS: Ht 162.6 cm; Wt 94.0 kg
[~2019-11-05 21:27] MED LIST changes: +D31000TA2 PO; -LIDOCAINE 1% MDV 20ML VIAL SQ PRN; -LR 1,000 ML IV ONE; +NICO-267 PO; -NICO4GUM31 PO; -VITAD1000T PO; -dexameTHASONE 4 MG/ML 1ML VIAL (J1100 PER 1MG) IV ONE
[2019-11-05] MEDS ORDERED: BUPR1TAB52 PO (22:05)
[2019-11-06 00:09] LABS: BASO # 0.1 10^3/uL (0.0-0.2); BASO % 0.7 % (0.0-1.0); EOS % 11.2 % (0.0-3.0); HEMATOCRIT 34.9 % (36.0-47.0); HEMOGLOBIN 11.7 g/dl (12.0-15.5); LYMPH # 3.7 10^3/uL (1.5-5.0); LYMPH % 42.7 % (24.0-44.0); MEAN CORPUSCULAR HEMOGLOBIN 30.5 pg (27.0-33.0); MEAN CORPUSCULAR HGB CONC 33.5 g/dl (32.0-36.5); MEAN CORPUSCULAR VOLUME 91.1 fl (80.0-96.0); MONO # 0.5 10^3/uL (0.0-0.8); MONO % 6.1 % (0.0-5.0); NEUTROPHILS # 3.4 10^3/uL (1.5-8.5); NEUTROPHILS % 38.7 % (36.0-66.0); PLATELET COUNT, AUTOMATED 304 10^3/uL (150-450); RED BLOOD COUNT 3.83 10^6/uL (4.00-5.40); WHITE BLOOD COUNT 8.7 10^3/uL (4.0-10.0)
[2019-11-06 00:24] LABS: HCG, SERUM QUALITATIVE NEGATIVE (NEGATIVE)
[2019-11-06 00:25] LABS: BLOOD UREA NITROGEN 10 MG/DL (7-18); CALCIUM LEVEL 9.1 MG/DL (8.5-10.1); CARBON DIOXIDE LEVEL 29 MEQ/L (21-32); CHLORIDE LEVEL 109 MEQ/L (98-107); CREATININE FOR GFR 0.77 MG/DL (0.55-1.30); GLOMERULAR FILTRATION RATE > 60.0 (>60); GLUCOSE, FASTING 78 MG/DL (70-100); POTASSIUM SERUM 4.1 MEQ/L (3.5-5.1); SODIUM LEVEL 140 MEQ/L (136-145)
[2019-11-06] MEDS ORDERED: FLAG500T PO (01:32)
[2019-11-06 01:46] VITALS: BP 125/70
[2019-11-06 02:50] LABS: CHLAMYDIA DNA AMPLIFICATION NEGATIVE (NEGATIVE); GC DNA AMPLIFICATION NEGATIVE (NEGATIVE)
== END 2019-11-06 01:48 | disposition home or self-care (01) ==
LOC: M ED 21:27
DX: N76.0 Acute vaginitis (principal); F25.0 Schizoaffective disorder, bipolar type; F44.5 Conversion disorder with seizures or convulsions; E78.5 Hyperlipidemia, unspecified; E03.9 Hypothyroidism, unspecified; K52.9 Noninfective gastroenteritis and colitis, unspecified; F17.200 Nicotine dependence, unspecified, uncomplicated; Z79.899 Other long term (current) drug therapy; Z88.0 Allergy status to penicillin; Z88.8 Allergy status to other drugs, medicaments and biological substances

== ENCOUNTER → 2019-12-25 | Outpatient (REF) | payer OTHER ==
[~2019-12-25] MED LIST changes: +BUPR1TAB52 PO; +CEFD1CAP8; +FLAG500T PO; +SERT-138; +VITA-122 PO
[2019-12-25 17:41] LABS: APPEARANCE, URINE HAZY (CLEAR); BACTERIA, URINE AUTO NEGATIVE (NEGATIVE); BILIRUBIN, URINE AUTO NEGATIVE (NEGATIVE); BLOOD, URINE BLOOD 1+ (NEGATIVE); CALCIUM OXALATE CRYSTALS LARGE; COLOR, URINE YELLOW (YELLOW); GLUCOSE, URINE (UA) AUTO NEGATIVE (NEGATIVE); KETONE, URINE AUTO NEGATIVE (NEGATIVE); LEUKOCYTE ESTERASE, URINE AUTO NEGATIVE (NEGATIVE); MUCUS, URINE SMALL (NEGATIVE); NITRITE, URINE AUTO NEGATIVE (NEGATIVE); PROTEIN, URINE AUTO NEGATIVE (NEGATIVE); RBC, URINE AUTO 0 /HPF (0-3); SPECIFIC GRAVITY URINE AUTO 1.025 (1.002-1.035); SQUAMOUS EPITHELIAL CELL UR AU 3 /HPF (0-6); WBC, URINE AUTO 2 /HPF (0-3)
== END ==
LOC: M SMT 17:06
PROVIDERS: ATTEND Nurse Practitioner Family
DX: R39.198 Other difficulties with micturition (principal)

== ENCOUNTER 2019-12-30 09:22 | Inpatient (IN) | payer OTHER ==
[~2019-12-30] VITALS: Ht 162.6 cm; Wt 91.0 kg
[~2019-12-30 09:22] MED LIST changes: -CEFD1CAP8; -SERT-138; -VITA-122 PO
[2019-12-30 10:05] LABS: HEMATOCRIT 35.5 % (36.0-47.0); HEMOGLOBIN 11.5 g/dl (12.0-15.5); MEAN CORPUSCULAR HEMOGLOBIN 29.8 pg (27.0-33.0); MEAN CORPUSCULAR HGB CONC 32.4 g/dl (32.0-36.5); PLATELET COUNT, AUTOMATED 295 10^3/uL (150-450); RED BLOOD COUNT 3.86 10^6/uL (4.00-5.40); WHITE BLOOD COUNT 10.3 10^3/uL (4.0-10.0)
[2019-12-30] MEDS ORDERED: VITA-122 PO (10:07)
[2019-12-30 10:26] LABS: AMPHETAMINES LEVEL URINE NEGATIVE (NEGATIVE); BARBITURATES URINE NEGATIVE (NEGATIVE); BENZODIAZEPINES URINE POSITIVE (NEGATIVE); CANNABINOIDS URINE NEGATIVE (NEGATIVE); COCAINE METABOLITE URINE NEGATIVE (NEGATIVE); METHADONE URINE NEGATIVE (NEGATIVE); OPIATES URINE NEGATIVE (NEGATIVE); PHENCYCLIDINE URINE NEGATIVE (NEGATIVE)
[2019-12-30 10:31] LABS: HCG, SERUM QUALITATIVE NEGATIVE (NEGATIVE)
[2019-12-30] MEDS ORDERED: BENZ-52 PO (10:40)
[2019-12-30] MEDS ORDERED: SERT-138 PO (10:40)
[2019-12-30] MEDS ORDERED: PRAZ1CAP PO (10:40)
[2019-12-30] MEDS ORDERED: TRAZ-252 PO (10:40)
[2019-12-30 11:20] LABS: ALT/SGPT 30 U/L (12-78); BILIRUBIN,DIRECT 0.1 MG/DL (0.0-0.2); BILIRUBIN,TOTAL 0.3 MG/DL (0.2-1.0); BLOOD UREA NITROGEN 7 MG/DL (7-18); CALCIUM LEVEL 9.1 MG/DL (8.5-10.1); CARBON DIOXIDE LEVEL 27 MEQ/L (21-32); CHLORIDE LEVEL 106 MEQ/L (98-107); CREATININE FOR GFR 0.63 MG/DL (0.55-1.30); GLOMERULAR FILTRATION RATE > 60.0 (>60); GLUCOSE, FASTING 79 MG/DL (70-100); HEPATITIS B SURFACE ANTIBODY POSITIVE (POSITIVE); HEPATITIS B SURFACE ANTIGEN NEGATIVE (NEGATIVE); HEPATITIS C VIRUS ABY INDEX 0.1 INDEX (<0.8); HIV 1&2 SCREEN CENTAUR NEGATIVE (NEGATIVE); POTASSIUM SERUM 4.1 MEQ/L (3.5-5.1); SALICYLATE LEVEL 9.7 MG/DL (5.0-30.0); SODIUM LEVEL 139 MEQ/L (136-145); THYROID STIMULATING HORMONE 0.791 uIU/ML (0.358-3.740); TOTAL PROTEIN 7.9 GM/DL (6.4-8.2)
[2019-12-30 11:21] LABS: ACETAMINOPHEN LEVEL < 2.0 UG/ML (10.0-30.0); ETHYL ALCOHOL (ETHANOL) < 0.003 % (0.000-0.010)
[2019-12-30 11:33] LABS: CHLAMYDIA DNA AMPLIFICATION NEGATIVE (NEGATIVE); GC DNA AMPLIFICATION NEGATIVE (NEGATIVE)
[2019-12-30] MEDS ORDERED: traZODone 50 MG TAB PO PRN (16:15)
[2019-12-30] MEDS ORDERED: LORazepam 2 MG TAB PO STA (16:21)
[2019-12-30] MEDS: haloperidoL 5 MG TAB PO SCH (20:52)
[2019-12-30] MEDS: BENZTROPINE 1 MG TAB PO SCH (20:53)
[2019-12-30] MEDS ORDERED: AMANTADINE 100MG TABLET PO SCH (21:00)
[2019-12-30] MEDS ORDERED: PRAZOSIN 1 MG CAP PO SCH (21:00)
[2019-12-31] MEDS: BENZTROPINE 1 MG TAB PO SCH ×2 (08:56→20:32)
[2019-12-31] MEDS: haloperidoL 5 MG TAB PO SCH ×2 (08:56→20:31)
[2019-12-31] MEDS ORDERED: SERTRALINE 100 MG TAB PO SCH (09:00)
[2019-12-31] MEDS ORDERED: FOLIC ACID 1 MG TAB PO SCH (09:00)
[2019-12-31] MEDS ORDERED: FERROUS SULFATE 325MG TAB PO SCH (09:00)
[2019-12-31] MEDS ORDERED: LORazepam 2 MG TAB PO STA (12:29)
[2019-12-31 16:53] VITALS: BP 131/80
[2019-12-31] MEDS: PRAZOSIN 1 MG CAP PO SCH (20:33)
--- NOTE | 2019-12-31 20:47 | ECGEPIP ---
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
[2019-12-31] MEDS: AMANTADINE 100MG TABLET PO SCH (22:19)
[2019-12-31] MEDS: OLANZapine ORAL DISINTEGRATING TAB 5MG PO PRN (22:19)
[2019-12-31] MEDS: traZODone 50 MG TAB PO PRN (22:19)
[2020-01-01 06:27] VITALS: BP 144/98
[2020-01-01] MEDS: FOLIC ACID 1 MG TAB PO SCH (08:44)
[2020-01-01] MEDS: DOCUSATE SODIUM 100 MG CAP PO SCH (08:44)
[2020-01-01] MEDS: NICOTINE 21MG/24HR 1 EA TRANSDERMAL TD SCH (08:44)
[2020-01-01] MEDS: SERTRALINE HCL 50 MG TAB PO SCH (08:44)
[2020-01-01] MEDS: FERROUS SULFATE 325MG TAB PO SCH (08:44)
[2020-01-01] MEDS: haloperidoL 5 MG TAB PO SCH ×2 (08:44→21:24)
[2020-01-01] MEDS: VITAMIN D 1,000 INTERNATIONAL UNITS TABLET PO SCH (08:44)
[2020-01-01] MEDS ORDERED: PILL CUTTER 1 EACH XX PRN (08:45)
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
--- NOTE | 2020-01-01 15:24 | HPEPDOC ---
[facility] Medical History & Physical Date of Admission Jan 01, 2020 Date of Service: Jan 01, 2020 History and Physical CHIEF COMPLAINT: "I'm homeless." HISTORY OF PRESENT ILLNESS: 29-year-old female with history of impaired glucose tolerance, right nasal epistaxis , L GIS status post colposcopy, ovarian cyst, vaginal candidiasis, history of somatic seizure fibroids, schizoaffective disorder, bipolar disease, PTSD, vitamin D deficiency, has admitted to the inpatient mental health unit due to "homelessness." Hospitalist was asked to assess for acute medical issues. Patient denies any fevers, chills, chest pain, pressure, tightness, shortness of breath, lightheadedness, dizziness, nausea, vomiting, abdominal pain, constipation, diarrhea, bright red blood per rectum, melena, black tarry stools. She does complain of slight difficulty starting a urine but denies any hematuria, dysuria, urgency, frequency and has seen a urologist recently with no acute medical urological issues. Patient admits to a 6 pound intentional weight loss since springtime due to dieting and eating more vegetables. She has not exercised consistently. She denies any skin rashes, ulcers or, swollen lymph nodes. . She denies any photophobia, diplopia, changes in vision, vertigo, tinnitus, hearing loss, ear discharge, upper or lower extremity weakness, paresthesias. No other complaints. PAST MEDICAL HISTORY: Impaired glucose tolerance, right anterior nares epistaxis L GIS Pap smear . Vitamin D deficiency. Tinea vesicular vaginal candidiasis. Tobacco abuse. Fibroids, irregular menses, ovarian cyst Schizophrenia,schizoaffective disorder,Bipolar Disorder,PTSD,hidradenitis suppurativa,H/O somatic seizure, abnormal thyroid uptake scan, vaginal candidiasis PAST SURGICAL HISTORY: 5 teeth extracted , nasal endoscopy August 2019, epistaxis, Colposcopy SOCHX: Resides in: [facility] Marital Status: Kids: 1 Employment: unemployed Tobacco use: 10-12 cigarettes per day ETOH: denies Illicit Drugs: Denies IV Drug Use: Denies Tattoos done unprofessionally: Denies FAMHX: Mother: Alive, gout, lupus Father: Alive, hypertension Siblings: 3 sisters, one brother Alive. 1 sister who is apparently with JRC., Sister with psychosis Children: Alive, well ROS: 12 point systems review Negative aside from positive findings on HPI PE: VITALS: SEE BELOW GEN: appears stated age. Anxious during exam. Alert and stating this am she is "in hell". HEENT: Normocephalic, atraumatic. Pupils are equal, round, and reactive to light. Extraocular movements are intact. No nystagmus appreciated. Sclera are nonicteric. Conjunctiva without injection. Nose midline. Nasal turbinates without bogginess. EACs both patent BL. TMs both visualized and brewer with good cone of light, no bulging or erythema. No facial asymmetry. Moist mucous membranes. Dentition fair. Pharynx pink and moist, no cobblestoning. Neck supple, trachea midline. No lymphadenopathy or thyromegaly appreciated. CHEST: Regular rate and rhythm, +S1, +S2 LUNGS: Clear to auscultation bilaterally. No wheezes, rales, or rhonchi. Breathing appears symmetric and easy. Patient is speaking in full sentences. No accessory muscle use. ABD: Round, soft, NT, non-distended. +Bowel sounds throughout. No rebound or guarding. No costovertebral angle tenderness. EXT: Pulses 2+ bilaterally dorsalis pedis and radial. No lower extremity edema appreciated. SKIN: [place], dry, warm. Capillary refill <2sec. No skin lesions or rashes. NEURO: Alert and oriented x 3. Cranial nerves III-XII are intact. No focal deficits appreciated. LABORATORY DATA: REVIEWED ASSESSMENT AND PLAN: 29-year-old female with history of impaired glucose tolerance, right nasal epistaxis , L GIS status post colposcopy, ovarian cyst, vaginal candidiasis, history of somatic seizure fibroids, schizoaffective disorder, bipolar disease, PTSD, vitamin D deficiency, has admitted to the inpatient mental health unit due to "homelessness." Hospitalist was asked to assess for acute medical issues. Patient denies any fevers, chills, chest pain, pressure, tightness, shortness of breath, lightheadedness, dizziness, nausea, vomiting, abdominal pain, constipation, diarrhea, bright red blood per rectum, melena, black tarry stools. She does complain of slight difficulty starting a urine but denies any hematuria, dysuria, urgency, frequency and has seen a urologist recently with no acute medical urological issues. Patient admits to a 6 pound intentional weight loss since springtime due to dieting and eating more vegetables. She has not exercised consistently. She denies any skin rashes, ulcers or, swollen lymph n odes. . She denies any photophobia, diplopia, changes in vision, vertigo, tinnitus, hearing loss, ear discharge, upper or lower extremity weakness, paresthesias. No other complaints. Schizophrenia schizoaffective disorder Bipolar Disorder. PTSD Impaired glucose tolerance History of L GIS on Pap smear , status post colposcopy Ovarian cyst Uterine fibroids History of irregular menses H/O somatic seizure Intentional 6 pound weight loss Plan: Patient has no acute medical problems. We'll check A1c, vitamin D, calcium, fasting lipid profile in the morning. Outpatient follow-up with primary care physician within one to 2 weeks of psychiatric discharge. Hospitals. We'll sign off. Please call [place] office to reconsult for any new acute medical complaints. Vital Signs Vital Signs Date Time Temp Pulse Resp B/P (MAP) Pulse Ox O2 Delivery O2 Flow Rate FiO2 01/01/20 06:27 97.1 108 18 144/98 (113) 12/31/19 16:53 100 12/31/19 06:08 Room Air Home Medications Scheduled Amantadine HCl (Amantadine) 100 Mg Tablet, 100 MG PO QHS Benztropine Mesylate (Benztropine Mesylate) 1 Mg Tablet, 1 MG PO QHS for EPS Cholecalciferol (Vitamin D3) (Vitamin D3) 25 Mcg Tablet, 25 MCG PO DAILY Docusate Sodium (Colace) 100 Mg Cap, 100 MG PO DAILY Ferrous Sulfate (Ferrous Sulfate) 325 Mg Tab, 325 MG PO DAILY Folic Acid (Folic Acid) 1 Mg Tab, 1 MG PO DAILY Haloperidol (Haloperidol) 5 Mg Tablet, 2.5 MG PO BID Haloperidol Decanoate (Haloperidol Decanoate) 100 Mg/Ml Soln, 100 MG IM QMONTH for PSYCHOSIS Prazosin Hcl (Prazosin HCl) 1 Mg Capsule, 1 MG PO QHS Sertraline HCl (Sertraline HCl) 100 Mg Tablet, 150 MG PO DAILY for DEPRESSION Scheduled PRN Trazodone HCl (Trazodone HCl) 50 Mg Tablet, 50 MG PO QHS PRN for INSOMNIA Allergies Coded Allergies: Penicillins (Unverified Allergy, Unknown, 09/02/19) paliperidone (Unverified Adverse Reaction, Unknown, DROOLING, 09/02/19) A-FIB/CHADSVASC A-FIB History Current/History of A-Fib/PAF?: No Current PO Anticoag Therapy: No Age/Risk Factor Scoring CHADSVASC: CHADSVASC Response (Comments) Value Age Risk Factor Age < 65 years old 0 Gender Risk Factor Female 1 Hx of CHF No 0 Hx of HTN No 0 Hx of Stroke/TIA/or VTE No 0 Hx of Diabetes No 0 Hx of Vascular Disease No 0 Total 1 Treatment Treatment ordered: NONE Reason Anticoagulant not given: Not indicated/[id number] GEMMA CASON MD Jan 01, 2020 14:44
[2020-01-01 16:56] VITALS: BP 127/74
[2020-01-01] MEDS: PRAZOSIN 1 MG CAP PO SCH (21:23)
[2020-01-01] MEDS: BENZTROPINE 1 MG TAB PO SCH (21:23)
[2020-01-01] MEDS: AMANTADINE 100MG TABLET PO SCH (21:23)
[2020-01-01] MEDS: OLANZapine ORAL DISINTEGRATING TAB 5MG PO PRN (21:23)
[2020-01-01] MEDS: traZODone 50 MG TAB PO PRN (22:32)
[2020-01-02] MEDS: OLANZapine ORAL DISINTEGRATING TAB 5MG PO PRN ×2 (02:10→19:54)
[2020-01-02 06:26] VITALS: BP 142/91
[2020-01-02] MEDS: NICOTINE 21MG/24HR 1 EA TRANSDERMAL TD SCH (09:00)
[2020-01-02] MEDS: VITAMIN D 1,000 INTERNATIONAL UNITS TABLET PO SCH (09:04)
[2020-01-02] MEDS: FERROUS SULFATE 325MG TAB PO SCH (09:04)
[2020-01-02] MEDS: haloperidoL 5 MG TAB PO SCH ×2 (09:05→19:54)
[2020-01-02] MEDS: SERTRALINE HCL 50 MG TAB PO SCH (09:05)
[2020-01-02] MEDS: DOCUSATE SODIUM 100 MG CAP PO SCH (09:06)
[2020-01-02] MEDS: FOLIC ACID 1 MG TAB PO SCH (09:06)
--- NOTE | 2020-01-02 09:44 | MHIPNPDOC ---
[facility] Progress Note Progress Note DATE OF SERVICE: 01/02/20 Subjective HPI: Estella presents today for concerns regarding her schizophrenia. Patient is talking to imaginary people and wont state who she is engaged too. She is walking around bizarrely and is paranoid constantly that someone else is there. Objective Behavior: Paranoid and delusional. Cognition: Impaired. Tangential Associations. Thought Content: Delusional. No evidence of suicidal ideation. No evidence of aggressive or homicidal ideation. Assessment F20.0 Paranoid schizophrenia Plan Needs continued care and is still quite sick. Increase Haldol to 5 milligrams in addition to her antidepressant. Vital Signs Vital Signs Date Time Temp Pulse Resp B/P (MAP) Pulse Ox O2 Delivery O2 Flow Rate FiO2 01/02/20 06:26 97.7 108 16 142/91 (108) 12/31/19 16:53 100 12/31/19 06:08 Room Air Current Medications Current Medications Medications (Trade) Dose Ordered Sig/Gordo Route PRN Reason Start Time Stop Time Status Last Admin Dose Admin Acetaminophen (Tylenol Tab) 650 mg Q6HP PRN PO HEADACHE or DISCOMFORT 12/31/19 14:30 Al Hydrox/Mg Hydrox/Simethicone (Mylanta) 30 ml Q4HP PRN PO HEARTBURN/INDIGESTION 12/31/19 14:30 Amantadine HCl (Symmetrel) 100 mg QHS PO 12/30/19 21:00 12/31/19 15:07 DC 12/30/19 20:52 Amantadine HCl (Symmetrel) 100 mg QHS PO 12/31/19 21:00 01/01/20 21:23 Benztropine Mesylate (Cogentin) 1 mg BID PO 12/30/19 21:00 12/31/19 16:57 DC 12/31/19 08:56 Benztropine Mesylate (Cogentin) 1 mg QHS PO 12/31/19 21:00 01/01/20 21:23 Docusate Sodium (Colace) 100 mg DAILY PO 01/01/20 09:00 01/02/20 09:06 Ferrous Sulfate (Ferrous Sulfate) 325 mg DAILY PO 12/31/19 09:00 12/31/19 15:10 DC 12/31/19 08:56 Ferrous Sulfate (Ferrous Sulfate) 325 mg DAILY PO 01/01/20 09:00 01/02/20 09:04 Folic Acid (Folic Acid) 1 mg DAILY PO 12/31/19 09:00 12/31/19 15:10 DC 12/31/19 08:56 Folic Acid (Folic Acid) 1 mg DAILY PO 01/01/20 09:00 01/02/20 09:06 Haloperidol (Haldol) 2.5 mg BID PO 12/30/19 21:00 12/31/19 15:06 DC 12/31/19 08:56 Haloperidol (Haldol) 2.5 mg BID PO 12/31/19 21:00 01/02/20 09:05 Home Med (Med Rec Complete!) ASDIRECTED XX 12/30/19 10:45 12/30/19 10:43 DC Lorazepam (Ativan) 2 mg STAT STAT PO 12/30/19 16:21 12/30/19 16:22 DC 12/30/19 16:37 Lorazepam (Ativan) 2 mg STAT STAT PO 12/31/19 12:29 12/31/19 12:30 DC 12/31/19 12:33 Magnesium Hydroxide (Milk Of Magnesia) 30 ml DAILYPRN PRN PO CONSTIPATION 12/31/19 14:30 Nicotine (Nicoderm Cq 21mg) 1 patch DAILY TD 01/01/20 09:00 Olanzapine (ZyPREXA ZYDIS) 5 mg Q4HP PRN PO AGITATION 12/31/19 14:30 01/02/20 02:10 Prazosin HCl (Minipress) 1 mg QHS PO 12/30/19 21:00 12/31/19 15:05 DC 12/30/19 20:53 Prazosin HCl (Minipress) 1 mg QHS PO 12/31/19 21:00 01/01/20 21:23 Sertraline HCl (Zoloft) 100 mg DAILY PO 12/31/19 09:00 12/31/19 16:57 DC 12/31/19 08:56 Sertraline HCl (Zoloft) 150 mg DAILY PO 01/01/20 09:00 01/02/20 09:05 Trazodone HCl (Desyrel) 50 mg QHS PRN PO INSOMNIA 12/30/19 16:15 12/31/19 15:04 DC 12/30/19 20:53 Trazodone HCl (Desyrel) 50 mg QHS PRN PO INSOMNIA 12/31/19 15:15 01/01/20 22:32 Vitamin D (Vitamin D) 1,000 units DAILY PO 01/01/20 09:00 01/02/20 09:04 Allergies Coded Allergies: Penicillins (Unverified Allergy, Unknown, 09/02/19) paliperidone (Unverified Adverse Reaction, Unknown, DROOLING, 09/02/19) CÉSAR MURPHY DO Jan 02, 2020 09:44
[2020-01-02] MEDS: BENZTROPINE 1 MG TAB PO SCH (19:53)
[2020-01-02] MEDS: AMANTADINE 100MG TABLET PO SCH (19:53)
[2020-01-02] MEDS: traZODone 50 MG TAB PO PRN (19:53)
[2020-01-02] MEDS: PRAZOSIN 1 MG CAP PO SCH (19:54)
[2020-01-02] MEDS: ACETAMINOPHEN TAB 650MG DOSE (2X325MG) PO PRN (23:02)
[2020-01-03 07:38] VITALS: BP 141/89
[2020-01-03] MEDS: NICOTINE 21MG/24HR 1 EA TRANSDERMAL TD SCH (09:00)
[2020-01-03] MEDS: haloperidoL 5 MG TAB PO SCH ×2 (09:12→21:34)
[2020-01-03] MEDS: FERROUS SULFATE 325MG TAB PO SCH (09:12)
[2020-01-03] MEDS: SERTRALINE HCL 50 MG TAB PO SCH (09:12)
[2020-01-03] MEDS: VITAMIN D 1,000 INTERNATIONAL UNITS TABLET PO SCH (09:13)
[2020-01-03] MEDS: FOLIC ACID 1 MG TAB PO SCH (09:13)
[2020-01-03] MEDS: DOCUSATE SODIUM 100 MG CAP PO SCH (09:13)
--- NOTE | 2020-01-03 10:34 | MHIPNPDOC ---
[facility] Progress Note Progress Note DATE OF SERVICE: 01/03/20 Subjective HPI: Estella presents today for a check up. She is still quite bizarre, tangential, and unable to engage in any meaningful, reasonable discussion. However, she is still open to staying as shes paranoid about returning home as she reports the hollows are the best thing ever, but otherwise does not elaborate much. Objective Affect: Tangential. Elated. Thought Form: Associations are loosened. Assessment F20.9 Schizophrenia, unspecified Plan Continue Haldol 5 mg BID as well as other medications. Continue to observe and will likely need some time for resolution. Vital Signs Vital Signs Date Time Temp Pulse Resp B/P (MAP) Pulse Ox O2 Delivery O2 Flow Rate FiO2 01/03/20 07:38 97.9 104 18 141/89 (106) Room Air 12/31/19 16:53 100 Current Medications Current Medications Medications (Trade) Dose Ordered Sig/Gordo Route PRN Reason Start Time Stop Time Status Last Admin Dose Admin Acetaminophen (Tylenol Tab) 650 mg Q6HP PRN PO HEADACHE or DISCOMFORT 12/31/19 14:30 01/02/20 23:02 Al Hydrox/Mg Hydrox/Simethicone (Mylanta) 30 ml Q4HP PRN PO HEARTBURN/INDIGESTION 12/31/19 14:30 Amantadine HCl (Symmetrel) 100 mg QHS PO 12/30/19 21:00 12/31/19 15:07 DC 12/30/19 20:52 Amantadine HCl (Symmetrel) 100 mg QHS PO 12/31/19 21:00 01/02/20 19:53 Benztropine Mesylate (Cogentin) 1 mg BID PO 12/30/19 21:00 12/31/19 16:57 DC 12/31/19 08:56 Benztropine Mesylate (Cogentin) 1 mg QHS PO 12/31/19 21:00 01/02/20 19:53 Docusate Sodium (Colace) 100 mg DAILY PO 01/01/20 09:00 01/03/20 09:13 Ferrous Sulfate (Ferrous Sulfate) 325 mg DAILY PO 12/31/19 09:00 12/31/19 15:10 DC 12/31/19 08:56 Ferrous Sulfate (Ferrous Sulfate) 325 mg DAILY PO 01/01/20 09:00 01/03/20 09:12 Folic Acid (Folic Acid) 1 mg DAILY PO 12/31/19 09:00 12/31/19 15:10 DC 12/31/19 08:56 Folic Acid (Folic Acid) 1 mg DAILY PO 01/01/20 09:00 01/03/20 09:13 Haloperidol (Haldol) 2.5 mg BID PO 12/30/19 21:00 12/31/19 15:06 DC 12/31/19 08:56 Haloperidol (Haldol) 2.5 mg BID PO 12/31/19 21:00 01/02/20 11:50 DC 01/02/20 09:05 Haloperidol (Haldol) 5 mg BID PO 01/02/20 21:00 01/03/20 09:12 Home Med (Med Rec Complete!) ASDIRECTED XX 12/30/19 10:45 12/30/19 10:43 DC Lorazepam (Ativan) 2 mg STAT STAT PO 12/30/19 16:21 12/30/19 16:22 DC 12/30/19 16:37 Lorazepam (Ativan) 2 mg STAT STAT PO 12/31/19 12:29 12/31/19 12:30 DC 12/31/19 12:33 Magnesium Hydroxide (Milk Of Magnesia) 30 ml DAILYPRN PRN PO CONSTIPATION 12/31/19 14:30 Nicotine (Nicoderm Cq 21mg) 1 patch DAILY TD 01/01/20 09:00 Olanzapine (ZyPREXA ZYDIS) 5 mg Q4HP PRN PO AGITATION 12/31/19 14:30 01/02/20 19:54 Prazosin HCl (Minipress) 1 mg QHS PO 12/30/19 21:00 12/31/19 15:05 DC 12/30/19 20:53 Prazosin HCl (Minipress) 1 mg QHS PO 12/31/19 21:00 01/02/20 19:54 Sertraline HCl (Zoloft) 100 mg DAILY PO 12/31/19 09:00 12/31/19 16:57 DC 12/31/19 08:56 Sertraline HCl (Zoloft) 150 mg DAILY PO 01/01/20 09:00 01/03/20 09:12 Trazodone HCl (Desyrel) 50 mg QHS PRN PO INSOMNIA 12/30/19 16:15 12/31/19 15:04 DC 12/30/19 20:53 Trazodone HCl (Desyrel) 50 mg QHS PRN PO INSOMNIA 12/31/19 15:15 01/02/20 19:53 Vitamin D (Vitamin D) 1,000 units DAILY PO 01/01/20 09:00 01/03/20 09:13 Allergies Coded Allergies: Penicillins (Unverified Allergy, Unknown, 09/02/19) paliperidone (Unverified Adverse Reaction, Unknown, DROOLING, 09/02/19) CÉSAR MURPHY DO Jan 03, 2020 10:34
[2020-01-03 16:13] VITALS: BP 141/85
[2020-01-03] MEDS: MAALOX 30 ML SUSP *UDC PO PRN (17:58)
[2020-01-03] MEDS: BENZTROPINE 1 MG TAB PO SCH (21:34)
[2020-01-03] MEDS: PRAZOSIN 1 MG CAP PO SCH (21:34)
[2020-01-03] MEDS: AMANTADINE 100MG TABLET PO SCH (21:34)
[2020-01-03] MEDS: OLANZapine ORAL DISINTEGRATING TAB 5MG PO PRN (22:39)
[2020-01-04 06:29] VITALS: BP 142/98
[2020-01-04] MEDS: DOCUSATE SODIUM 100 MG CAP PO SCH (08:29)
[2020-01-04] MEDS: VITAMIN D 1,000 INTERNATIONAL UNITS TABLET PO SCH (08:29)
[2020-01-04] MEDS: FERROUS SULFATE 325MG TAB PO SCH (08:29)
[2020-01-04] MEDS: NICOTINE 21MG/24HR 1 EA TRANSDERMAL TD SCH (08:29)
[2020-01-04] MEDS: SERTRALINE HCL 50 MG TAB PO SCH (08:29)
[2020-01-04] MEDS: FOLIC ACID 1 MG TAB PO SCH (08:29)
[2020-01-04] MEDS: haloperidoL 5 MG TAB PO SCH ×2 (08:29→22:03)
--- NOTE | 2020-01-04 14:44 | MHIPNPDOC ---
[facility] Progress Note Progress Note DATE OF SERVICE: 01/04/20 HISTORY: As per previous history: "Per [facility], patient was found laying outdoors on an "egg crate type" mattress pad, at a [employer] bus stop this morning. When approached, she stated that someone had broken into her [place] apartment during the night & that she needed a new place to live. She was reportedly "really up and down", making odd statements & not making a lot of sense. She insisted that her apartment was no longer a safe place, and despite the cold weather, she intended to remain there on the sidewalk until other living arrangements could be made. At one point she became agitated & police expressed fear that she may be difficlt to transport here. C ontrary to that fear, she reportedly became very friendly & "Our best friend" when placed in the back of the patrol car. This behavior continued until arrival in [facility], at which time she began singing loudly in P-4." VITAL SIGNS: See below. NEW TEST RESULTS: See below CURRENT MEDICATIONS: See below. MENTAL STATUS EXAMINATION: Patient is a 29 year old female, who is alert, cooperative, dressed in hospital clothes, psychotic. Speech: Is normal in tone, low volume, tangential, disorganized. Thought processes including: disorganized, psychotic. Thought content: responding to internal stimuli, not able to tell me if she is having auditory/visual hallucinations. Description of associations: loose Description of abnormal or psychotic thoughts: responding to internal stimuli, not paying attention to what I tell her. Judgment: poor. Insight: poor. Orientation: oriented to place, herself but not date and time. Recent and remote memory: impaired due to psychosis. Attention span and concentration: easily distracted. Mood: euthymic. Affect: congruent with mood DIAGNOSES: paranoid Schizophrenia ASSESSMENT: Her presentation is not very differnet from previous ones. She is pleasant, walking the hallways, singing at times, alternating between very serious/smiling. Will continue to monitor and will adjust medications if needed. MANAGEMENT PLAN: As per Dr. Au TIME SPENT: 10 minutes. Vital Signs Vital Signs Date Time Temp Pulse Resp B/P (MAP) Pulse Ox O2 Delivery O2 Flow Rate FiO2 01/04/20 06:29 99.4 102 18 142/98 (113) Room Air 12/31/19 16:53 100 Current Medications Current Medications Medications (Trade) Dose Ordered Sig/Gordo Route PRN Reason Start Time Stop Time Status Last Admin Dose Admin Acetaminophen (Tylenol Tab) 650 mg Q6HP PRN PO HEADACHE or DISCOMFORT 12/31/19 14:30 01/02/20 23:02 Al Hydrox/Mg Hydrox/Simethicone (Mylanta) 30 ml Q4HP PRN PO HEARTBURN/INDIGESTION 12/31/19 14:30 01/03/20 17:58 Amantadine HCl (Symmetrel) 100 mg QHS PO 12/30/19 21:00 12/31/19 15:07 DC 12/30/19 20:52 Amantadine HCl (Symmetrel) 100 mg QHS PO 12/31/19 21:00 01/03/20 21:34 Benztropine Mesylate (Cogentin) 1 mg BID PO 12/30/19 21:00 12/31/19 16:57 DC 12/31/19 08:56 Benztropine Mesylate (Cogentin) 1 mg QHS PO 12/31/19 21:00 01/03/20 21:34 Docusate Sodium (Colace) 100 mg DAILY PO 01/01/20 09:00 01/04/20 08:29 Ferrous Sulfate (Ferrous Sulfate) 325 mg DAILY PO 12/31/19 09:00 12/31/19 15:10 DC 12/31/19 08:56 Ferrous Sulfate (Ferrous Sulfate) 325 mg DAILY PO 01/01/20 09:00 01/04/20 08:29 Folic Acid (Folic Acid) 1 mg DAILY PO 12/31/19 09:00 12/31/19 15:10 DC 12/31/19 08:56 Folic Acid (Folic Acid) 1 mg DAILY PO 01/01/20 09:00 01/04/20 08:29 Haloperidol (Haldol) 2.5 mg BID PO 12/30/19 21:00 12/31/19 15:06 DC 12/31/19 08:56 Haloperidol (Haldol) 2.5 mg BID PO 12/31/19 21:00 01/02/20 11:50 DC 01/02/20 09:05 Haloperidol (Haldol) 5 mg BID PO 01/02/20 21:00 01/04/20 08:29 Home Med (Med Rec Complete!) ASDIRECTED XX 12/30/19 10:45 12/30/19 10:43 DC Lorazepam (Ativan) 2 mg STAT STAT PO 12/30/19 16:21 12/30/19 16:22 DC 12/30/19 16:37 Lorazepam (Ativan) 2 mg STAT STAT PO 12/31/19 12:29 12/31/19 12:30 DC 12/31/19 12:33 Magnesium Hydroxide (Milk Of Magnesia) 30 ml DAILYPRN PRN PO CONSTIPATION 12/31/19 14:30 Nicotine (Nicoderm Cq 21mg) 1 patch DAILY TD 01/01/20 09:00 01/04/20 08:29 Olanzapine (ZyPREXA ZYDIS) 5 mg Q4HP PRN PO AGITATION 12/31/19 14:30 01/03/20 22:39 Prazosin HCl (Minipress) 1 mg QHS PO 12/30/19 21:00 12/31/19 15:05 DC 12/30/19 20:53 Prazosin HCl (Minipress) 1 mg QHS PO 12/31/19 21:00 01/03/20 21:34 Sertraline HCl (Zoloft) 100 mg DAILY PO 12/31/19 09:00 12/31/19 16:57 DC 12/31/19 08:56 Sertraline HCl (Zoloft) 150 mg DAILY PO 01/01/20 09:00 01/04/20 08:29 Trazodone HCl (Desyrel) 50 mg QHS PRN PO INSOMNIA 12/30/19 16:15 12/31/19 15:04 DC 12/30/19 20:53 Trazodone HCl (Desyrel) 50 mg QHS PRN PO INSOMNIA 12/31/19 15:15 01/02/20 19:53 Vitamin D (Vitamin D) 1,000 units DAILY PO 01/01/20 09:00 01/04/20 08:29 Allergies Coded Allergies: Penicillins (Unverified Allergy, Unknown, 09/02/19) paliperidone (Unverified Adverse Reaction, Unknown, DROOLING, 09/02/19) ANDREA BARFIELD MD Jan 04, 2020 13:57
[2020-01-04 16:34] VITALS: BP 127/74
[2020-01-04] MEDS: BENZTROPINE 1 MG TAB PO SCH (22:03)
[2020-01-04] MEDS: traZODone 50 MG TAB PO PRN (22:03)
[2020-01-04] MEDS: AMANTADINE 100MG TABLET PO SCH (22:03)
[2020-01-04] MEDS: PRAZOSIN 1 MG CAP PO SCH (22:03)
[2020-01-04] MEDS: OLANZapine ORAL DISINTEGRATING TAB 5MG PO PRN (23:39)
[2020-01-05] MEDS ORDERED: LORazepam 2 MG TAB PO ONE (01:00)
[2020-01-05 06:35] VITALS: BP 133/72
[2020-01-05] MEDS: FERROUS SULFATE 325MG TAB PO SCH (09:49)
[2020-01-05] MEDS: VITAMIN D 1,000 INTERNATIONAL UNITS TABLET PO SCH (09:49)
[2020-01-05] MEDS: DOCUSATE SODIUM 100 MG CAP PO SCH (09:49)
[2020-01-05] MEDS: NICOTINE 21MG/24HR 1 EA TRANSDERMAL TD SCH (09:49)
[2020-01-05] MEDS: FOLIC ACID 1 MG TAB PO SCH (09:49)
[2020-01-05] MEDS: haloperidoL 5 MG TAB PO SCH ×2 (09:49→21:41)
[2020-01-05] MEDS: SERTRALINE HCL 50 MG TAB PO SCH (09:50)
[2020-01-05 17:26] VITALS: BP 134/76
[2020-01-05 19:45] VITALS: BP_SYST 135; BP_SYST 148; BP_SYST 161; BP_DIAS 72; BP_DIAS 78; BP_DIAS 97
--- NOTE | 2020-01-05 20:53 | REPVR ---
PROCEDURE INFORMATION: Exam: CT Head Without Contrast Exam date and time: 01/05/2020 8:20 PM Age: 29 years old Clinical indication: Other: Szr; Additional info: Pseudoseizure TECHNIQUE: Imaging protocol: Computed tomography of the head without contrast. Radiation optimization: All CT scans at this facility use at least one of these dose optimization techniques: automated exposure control; mA and/or kV adjustment per patient size (includes targeted exams where dose is matched to clinical indication); or iterative reconstruction. COMPARISON: CT Head without contrast 10/01/2017 7:44 PM FINDINGS: Brain: Normal. No hemorrhage. Unremarkable white matter. No mass effect. Cerebral ventricles: No ventriculomegaly. Bones/joints: Unremarkable. No acute fracture. Paranasal sinuses: Minimal paranasal sinus disease. Mastoid air cells: Visualized mastoid air cells are well aerated. Soft tissues: Unremarkable. IMPRESSION: No acute intracranial abnormality. Electronically signed by: Roby León On 01/05/2020 20:53:38 PM
[2020-01-05 21:00] VITALS: BP_SYST 133; BP_SYST 134; BP_SYST 137; BP_DIAS 73; BP_DIAS 81; BP_DIAS 92
[2020-01-05 21:01] VITALS: BP 137/92
[2020-01-05] MEDS: AMANTADINE 100MG TABLET PO SCH (21:41)
[2020-01-05] MEDS: BENZTROPINE 1 MG TAB PO SCH (21:41)
[2020-01-05] MEDS: PRAZOSIN 1 MG CAP PO SCH (21:42)
[2020-01-06 07:09] VITALS: BP 147/89
[2020-01-06] MEDS: haloperidoL 5 MG TAB PO SCH ×2 (08:51→21:52)
[2020-01-06] MEDS: SERTRALINE HCL 50 MG TAB PO SCH (08:51)
[2020-01-06] MEDS: FERROUS SULFATE 325MG TAB PO SCH (08:51)
[2020-01-06] MEDS: VITAMIN D 1,000 INTERNATIONAL UNITS TABLET PO SCH (08:51)
[2020-01-06] MEDS: FOLIC ACID 1 MG TAB PO SCH (08:52)
[2020-01-06] MEDS: DOCUSATE SODIUM 100 MG CAP PO SCH (08:52)
[2020-01-06] MEDS: NICOTINE 21MG/24HR 1 EA TRANSDERMAL TD SCH (08:53)
--- NOTE | 2020-01-06 09:57 | MHIPNPDOC ---
[facility] Progress Note Progress Note DATE OF SERVICE: 01/06/20 Subjective HPI: Estella presents today for agitationPatient affirms laying on the ground when nurses attempted to help move her she began to flail wildly and angrilyPatient affirms not knowing what was going onPatient appears to be exhibiting disinhibited manic like behavior. Objective Behavior: Labile. Disorganized. Speech: Hyper-verbal alternating with mute. Judgement: Poor. Insight: Poor. Assessment F25.0 Schizoaffective disorder, bipolar type Plan Continue current medications and increase Haldol. Vital Signs Vital Signs Date Time Temp Pulse Resp B/P (MAP) Pulse Ox O2 Delivery O2 Flow Rate FiO2 01/06/20 07:09 97.9 108 16 147/89 (108) 01/05/20 21:01 99 Room Air Current Medications Current Medications Medications (Trade) Dose Ordered Sig/Gordo Route PRN Reason Start Time Stop Time Status Last Admin Dose Admin Acetaminophen (Tylenol Tab) 650 mg Q6HP PRN PO HEADACHE or DISCOMFORT 12/31/19 14:30 01/02/20 23:02 Al Hydrox/Mg Hydrox/Simethicone (Mylanta) 30 ml Q4HP PRN PO HEARTBURN/INDIGESTION 12/31/19 14:30 01/03/20 17:58 Amantadine HCl (Symmetrel) 100 mg QHS PO 12/30/19 21:00 12/31/19 15:07 DC 12/30/19 20:52 Amantadine HCl (Symmetrel) 100 mg QHS PO 12/31/19 21:00 01/05/20 21:41 Benztropine Mesylate (Cogentin) 1 mg BID PO 12/30/19 21:00 12/31/19 16:57 DC 12/31/19 08:56 Benztropine Mesylate (Cogentin) 1 mg QHS PO 12/31/19 21:00 01/05/20 21:41 Docusate Sodium (Colace) 100 mg DAILY PO 01/01/20 09:00 01/06/20 08:52 Ferrous Sulfate (Ferrous Sulfate) 325 mg DAILY PO 12/31/19 09:00 12/31/19 15:10 DC 12/31/19 08:56 Ferrous Sulfate (Ferrous Sulfate) 325 mg DAILY PO 01/01/20 09:00 01/06/20 08:51 Folic Acid (Folic Acid) 1 mg DAILY PO 12/31/19 09:00 12/31/19 15:10 DC 12/31/19 08:56 Folic Acid (Folic Acid) 1 mg DAILY PO 01/01/20 09:00 01/06/20 08:52 Haloperidol (Haldol) 2.5 mg BID PO 12/30/19 21:00 12/31/19 15:06 DC 12/31/19 08:56 Haloperidol (Haldol) 2.5 mg BID PO 12/31/19 21:00 01/02/20 11:50 DC 01/02/20 09:05 Haloperidol (Haldol) 5 mg BID PO 01/02/20 21:00 01/06/20 08:51 Home Med (Med Rec Complete!) ASDIRECTED XX 12/30/19 10:45 12/30/19 10:43 DC Lorazepam (Ativan) 2 mg STAT STAT PO 12/30/19 16:21 12/30/19 16:22 DC 12/30/19 16:37 Lorazepam (Ativan) 2 mg STAT STAT PO 12/31/19 12:29 12/31/19 12:30 DC 12/31/19 12:33 Magnesium Hydroxide (Milk Of Magnesia) 30 ml DAILYPRN PRN PO CONSTIPATION 12/31/19 14:30 Nicotine (Nicoderm Cq 21mg) 1 patch DAILY TD 01/01/20 09:00 01/06/20 08:53 Olanzapine (ZyPREXA ZYDIS) 5 mg Q4HP PRN PO AGITATION 12/31/19 14:30 01/04/20 23:39 Prazosin HCl (Minipress) 1 mg QHS PO 12/30/19 21:00 12/31/19 15:05 DC 12/30/19 20:53 Prazosin HCl (Minipress) 1 mg QHS PO 12/31/19 21:00 01/05/20 21:42 Sertraline HCl (Zoloft) 100 mg DAILY PO 12/31/19 09:00 12/31/19 16:57 DC 12/31/19 08:56 Sertraline HCl (Zoloft) 150 mg DAILY PO 01/01/20 09:00 01/06/20 08:51 Trazodone HCl (Desyrel) 50 mg QHS PRN PO INSOMNIA 12/30/19 16:15 12/31/19 15:04 DC 12/30/19 20:53 Trazodone HCl (Desyrel) 50 mg QHS PRN PO INSOMNIA 12/31/19 15:15 01/04/20 22:03 Vitamin D (Vitamin D) 1,000 units DAILY PO 01/01/20 09:00 01/06/20 08:51 Allergies Coded Allergies: Penicillins (Unverified Allergy, Unknown, 09/02/19) paliperidone (Unverified Adverse Reaction, Unknown, DROOLING, 09/02/19) CÉSAR MURPHY DO Jan 06, 2020 09:57
[2020-01-06] MEDS: ACETAMINOPHEN TAB 650MG DOSE (2X325MG) PO PRN (10:06)
[2020-01-06] MEDS ORDERED: LORazepam 2 MG/ML VIAL IM STA (12:02)
[2020-01-06] MEDS ORDERED: diphenhydrAMINE 50MG/ML VIAL (J1200) IM STA (12:02)
[2020-01-06] MEDS ORDERED: HALOPERIDOL 5MG/ML VIAL (J1630 PER 1) IM STA (12:02)
[2020-01-06] MEDS ORDERED: LORazepam 2 MG/ML VIAL As Ordered ONE (12:06)
[2020-01-06] MEDS ORDERED: haloperidoL 5 MG TAB PO ONE (12:15)
[2020-01-06] MEDS ORDERED: diphenhydrAMINE 50MG CAP PO ONE (12:15)
--- NOTE | 2020-01-06 13:18 | IPN ---
DATE: 01/05/2020 SUBJECTIVE: This is a 29-year-old female who is a patient on the inpatient mental health unit. She was admitted December 30 for unspecified psychosis. She has a history of somatic seizures, post-traumatic stress disorder (PTSD), bipolar disease, and schizoaffective disorder who today at approximately 0745 was ambulating in the osei. She states she just went down. A nurse was going by and saw her on the ground. She states her upper body was shaking and her head was shaking for a few seconds. A rapid assessment was called. Upon arrival, the patient was lying on the floor able to move all extremities. She had no loss of bowel or bladder control. She was oriented to person, place, and time. She was able to move all extremities. She just complained of being very fatigued. OBJECTIVE: Assessment showed pupils equal and reactive to light. Extraocular muscles (EOMs) intact. Conjunctivae normal. No facial asymmetry. Pharynx, tongue, and gums pink and moist. Tongue was midline. Neck supple without lymphadenopathy. No thyromegaly. No goiter. Chest clear to auscultation without wheeze or retraction. Heart regular. Abdomen benign. Bowel sounds positive. Genitourinary () and rectal not done. Extremities with no cyanosis, clubbing, or edema. Peripheral pulses equal and palpable bilaterally. Skin was warm and dry. Negative Romberg. Gait was steady. Patient was assisted with standing position. Did cooperate with vital signs. IMAGING: A stat CT scan was ordered and was negative. She had a negative EEG in 2011 and negative MRI in 2018. ASSESSMENT AND PLAN: She has no current complaints. Will monitor closely. RICK
[2020-01-06 17:50] VITALS: BP 119/57
[2020-01-06] MEDS: AMANTADINE 100MG TABLET PO SCH (21:51)
[2020-01-06] MEDS: BENZTROPINE 1 MG TAB PO SCH (21:52)
[2020-01-06] MEDS: PRAZOSIN 1 MG CAP PO SCH (21:52)
[2020-01-07 06:38] VITALS: BP 143/82
[2020-01-07] MEDS: NICOTINE 21MG/24HR 1 EA TRANSDERMAL TD SCH (09:00)
[2020-01-07] MEDS: VITAMIN D 1,000 INTERNATIONAL UNITS TABLET PO SCH (09:30)
[2020-01-07] MEDS: FERROUS SULFATE 325MG TAB PO SCH (09:30)
[2020-01-07] MEDS: haloperidoL 5 MG TAB PO SCH ×2 (09:30→21:08)
[2020-01-07] MEDS: FOLIC ACID 1 MG TAB PO SCH (09:31)
[2020-01-07] MEDS: SERTRALINE HCL 50 MG TAB PO SCH (09:31)
[2020-01-07] MEDS: DOCUSATE SODIUM 100 MG CAP PO SCH (09:31)
[2020-01-07] MEDS: OLANZapine ORAL DISINTEGRATING TAB 5MG PO PRN (12:54)
[2020-01-07] MEDS ORDERED: LORazepam 2 MG/ML VIAL IM ONE (16:00)
[2020-01-07] MEDS ORDERED: diphenhydrAMINE 50MG/ML VIAL (J1200) IM ONE (16:00)
[2020-01-07] MEDS ORDERED: HALOPERIDOL 5MG/ML VIAL (J1630 PER 1) IM ONE (16:00)
[2020-01-07] MEDS: AMANTADINE 100MG TABLET PO SCH (21:08)
[2020-01-07] MEDS: BENZTROPINE 1 MG TAB PO SCH (21:08)
[2020-01-07] MEDS: PRAZOSIN 1 MG CAP PO SCH (21:11)
[2020-01-08 06:31] VITALS: BP 151/75
[2020-01-08] MEDS: DOCUSATE SODIUM 100 MG CAP PO SCH (08:55)
[2020-01-08] MEDS: FERROUS SULFATE 325MG TAB PO SCH (08:56)
[2020-01-08] MEDS: SERTRALINE HCL 50 MG TAB PO SCH (08:56)
[2020-01-08] MEDS: VITAMIN D 1,000 INTERNATIONAL UNITS TABLET PO SCH (08:56)
[2020-01-08] MEDS: NICOTINE 21MG/24HR 1 EA TRANSDERMAL TD SCH (08:57)
[2020-01-08] MEDS: FOLIC ACID 1 MG TAB PO SCH (08:57)
[2020-01-08] MEDS: haloperidoL 5 MG TAB PO SCH ×2 (08:57→20:04)
[2020-01-08] MEDS: OLANZapine ORAL DISINTEGRATING TAB 5MG PO PRN ×2 (08:57→13:03)
[2020-01-08] MEDS: MAALOX 30 ML SUSP *UDC PO PRN (13:54)
[2020-01-08] MEDS ORDERED: diphenhydrAMINE 50MG CAP PO ONE (15:45)
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
[2020-01-08 17:23] VITALS: BP 131/87
[2020-01-08] MEDS: BENZTROPINE 1 MG TAB PO SCH (20:04)
[2020-01-08] MEDS: traZODone 50 MG TAB PO PRN (20:04)
[2020-01-08] MEDS: AMANTADINE 100MG TABLET PO SCH (20:04)
[2020-01-08] MEDS: PRAZOSIN 1 MG CAP PO SCH (20:04)
[2020-01-09 07:23] VITALS: BP 134/72
[2020-01-09] MEDS: NICOTINE 21MG/24HR 1 EA TRANSDERMAL TD SCH (09:00)
[2020-01-09] MEDS: DOCUSATE SODIUM 100 MG CAP PO SCH (09:06)
[2020-01-09] MEDS: VITAMIN D 1,000 INTERNATIONAL UNITS TABLET PO SCH (09:06)
[2020-01-09] MEDS: SERTRALINE HCL 50 MG TAB PO SCH (09:06)
[2020-01-09] MEDS: haloperidoL 5 MG TAB PO SCH ×2 (09:06→21:52)
[2020-01-09] MEDS: FOLIC ACID 1 MG TAB PO SCH (09:06)
[2020-01-09] MEDS: FERROUS SULFATE 325MG TAB PO SCH (09:06)
--- NOTE | 2020-01-09 10:33 | MHIPNPDOC ---
[facility] Progress Note Progress Note DATE OF SERVICE: 01/09/20 Subjective HPI: The patient is attempting met with, however she is still quite distorted and behaviorally problematic. She is still acting bizarrely throughout the day, and calling the various numbers speaking in [facility]. Objective General: poor Speech: rapid Thought processes: tangential Thought content: psychotic delusions Abstract reasoning, and computation: impaired Description of associations: imparied Description of abnormal or psychotic thoughts:Unclear, appears to have psychotic processes going on. Judgment: poor Insight: poor Orientation: Alert and orientated 3 Recent and remote memory: Intact Attention span and concentration: impaired secondary to thought process Fund of knowledge: unable to determine Mood: "hi" Affect: flat, little reactivity Assessment schizoaffective disorder, bipolar type Plan Continue Haldol and search lien at this time with no changes Vital Signs Vital Signs Date Time Temp Pulse Resp B/P (MAP) Pulse Ox O2 Delivery O2 Flow Rate FiO2 01/09/20 07:23 96.9 115 16 134/72 (92) 99 Room Air Current Medications Current Medications Medications (Trade) Dose Ordered Sig/Gordo Route PRN Reason Start Time Stop Time Status Last Admin Dose Admin Acetaminophen (Tylenol Tab) 650 mg Q6HP PRN PO HEADACHE or DISCOMFORT 12/31/19 14:30 01/06/20 10:06 Al Hydrox/Mg Hydrox/Simethicone (Mylanta) 30 ml Q4HP PRN PO HEARTBURN/INDIGESTION 12/31/19 14:30 01/08/20 13:54 Amantadine HCl (Symmetrel) 100 mg QHS PO 12/30/19 21:00 12/31/19 15:07 DC 12/30/19 20:52 Amantadine HCl (Symmetrel) 100 mg QHS PO 12/31/19 21:00 01/08/20 20:04 Benztropine Mesylate (Cogentin) 1 mg BID PO 12/30/19 21:00 12/31/19 16:57 DC 12/31/19 08:56 Benztropine Mesylate (Cogentin) 1 mg QHS PO 12/31/19 21:00 01/08/20 20:04 Diphenhydramine HCl (Benadryl) 50 mg STAT STAT IM 01/06/20 12:02 01/06/20 12:05 DC 01/06/20 12:14 Docusate Sodium (Colace) 100 mg DAILY PO 01/01/20 09:00 01/09/20 09:06 Ferrous Sulfate (Ferrous Sulfate) 325 mg DAILY PO 12/31/19 09:00 12/31/19 15:10 DC 12/31/19 08:56 Ferrous Sulfate (Ferrous Sulfate) 325 mg DAILY PO 01/01/20 09:00 01/09/20 09:06 Folic Acid (Folic Acid) 1 mg DAILY PO 12/31/19 09:00 12/31/19 15:10 DC 12/31/19 08:56 Folic Acid (Folic Acid) 1 mg DAILY PO 01/01/20 09:00 01/09/20 09:06 Haloperidol (Haldol) 2.5 mg BID PO 12/30/19 21:00 12/31/19 15:06 DC 12/31/19 08:56 Haloperidol (Haldol) 2.5 mg BID PO 12/31/19 21:00 01/02/20 11:50 DC 01/02/20 09:05 Haloperidol (Haldol) 5 mg BID PO 01/02/20 21:00 01/09/20 09:06 Haloperidol (Haldol) 10 mg STAT STAT IM 01/06/20 12:02 01/06/20 12:05 DC 01/06/20 12:14 Home Med (Med Rec Complete!) ASDIRECTED XX 12/30/19 10:45 12/30/19 10:43 DC Lorazepam (Ativan) 2 mg STAT STAT IM 01/06/20 12:02 01/06/20 12:05 DC 01/06/20 12:14 Lorazepam (Ativan) 2 mg STAT STAT PO 12/30/19 16:21 12/30/19 16:22 DC 12/30/19 16:37 Lorazepam (Ativan) 2 mg STAT STAT PO 12/31/19 12:29 12/31/19 12:30 DC 12/31/19 12:33 Magnesium Hydroxide (Milk Of Magnesia) 30 ml DAILYPRN PRN PO CONSTIPATION 12/31/19 14:30 Nicotine (Nicoderm Cq 21mg) 1 patch DAILY TD 01/01/20 09:00 01/08/20 08:57 Olanzapine (ZyPREXA ZYDIS) 5 mg Q4HP PRN PO AGITATION 12/31/19 14:30 01/08/20 13:03 Prazosin HCl (Minipress) 1 mg QHS PO 12/30/19 21:00 12/31/19 15:05 DC 12/30/19 20:53 Prazosin HCl (Minipress) 1 mg QHS PO 12/31/19 21:00 01/08/20 20:04 Sertraline HCl (Zoloft) 100 mg DAILY PO 12/31/19 09:00 12/31/19 16:57 DC 12/31/19 08:56 Sertraline HCl (Zoloft) 150 mg DAILY PO 01/01/20 09:00 01/09/20 09:06 Trazodone HCl (Desyrel) 50 mg QHS PRN PO INSOMNIA 12/30/19 16:15 12/31/19 15:04 DC 12/30/19 20:53 Trazodone HCl (Desyrel) 50 mg QHS PRN PO INSOMNIA 12/31/19 15:15 01/08/20 20:04 Vitamin D (Vitamin D) 1,000 units DAILY PO 01/01/20 09:00 01/09/20 09:06 Allergies Coded Allergies: Penicillins (Unverified Allergy, Unknown, 09/02/19) paliperidone (Unverified Adverse Reaction, Unknown, DROOLING, 09/02/19) CÉSAR MURPHY DO Jan 09, 2020 10:33
[2020-01-09] MEDS: MOM 30ML SUSPENSION UDC PO PRN (13:58)
[2020-01-09] MEDS ORDERED: LORazepam 2 MG/ML VIAL IM STA ×2 (14:57→17:15)
[2020-01-09] MEDS ORDERED: HALOPERIDOL 5MG/ML VIAL (J1630 PER 1) IM STA ×2 (14:57→17:15)
[2020-01-09] MEDS ORDERED: diphenhydrAMINE 50MG/ML VIAL (J1200) IM STA ×2 (14:57→17:15)
--- NOTE | 2020-01-09 15:25 | IPNPDOC ---
Text Note Date of Service The patient was seen on 01/09/20. NOTE PSYCH CERTIFICATION FACE TO FACE: yes PHYSICIAN ASSESSMENT: The patient was agitated, violent towards staff and not following verbal instructions VITALS GEN: irritable / yelling REASON FOR RESTRAINT: The patient was a danger to the staff. DE-ESCALATION INTERVENTIONS ATTEMPTED BEFORE USE OF RESTRAINTS: verbal redirection [MECHANICAL AND/OR CHEMICAL] RESTRAINTS USED: Both LENGTH OF TIME ORDERED IN RESTRAINTS: 4 hours WHEN TO DISCONTINUE RESTRAINTS: When the patient is no longer a threat to to herself or others Post evaluation of restraint due in 24 hours. VS,Fishbone, I+O VS, Fishbone, I+O Vital Signs Date Time Temp Pulse Resp B/P (MAP) Pulse Ox O2 Delivery O2 Flow Rate FiO2 01/09/20 07:23 96.9 115 16 134/72 (92) 99 Room Air KIMBERLEY NEAL MD Jan 09, 2020 15:25
[2020-01-09 15:30] VITALS: BP 132/68
[2020-01-09 15:45] VITALS: BP 132/68
[2020-01-09 18:00] VITALS: BP 131/64
[2020-01-09] MEDS: AMANTADINE 100MG TABLET PO SCH (21:51)
[2020-01-09] MEDS: PRAZOSIN 1 MG CAP PO SCH (21:51)
[2020-01-09] MEDS: BENZTROPINE 1 MG TAB PO SCH (21:51)
[2020-01-10 06:34] VITALS: BP 139/76
[2020-01-10] MEDS: NICOTINE 21MG/24HR 1 EA TRANSDERMAL TD SCH (09:00)
[2020-01-10] MEDS: VITAMIN D 1,000 INTERNATIONAL UNITS TABLET PO SCH (09:12)
[2020-01-10] MEDS: FERROUS SULFATE 325MG TAB PO SCH (09:12)
[2020-01-10] MEDS: haloperidoL 5 MG TAB PO SCH (09:13)
[2020-01-10] MEDS: DOCUSATE SODIUM 100 MG CAP PO SCH (09:13)
[2020-01-10] MEDS: SERTRALINE HCL 50 MG TAB PO SCH (09:13)
[2020-01-10] MEDS: FOLIC ACID 1 MG TAB PO SCH (09:13)
--- NOTE | 2020-01-10 12:33 | MHIPNPDOC ---
[facility] Progress Note Progress Note DATE OF SERVICE: 01/10/20 Subjective HPI: The patient has been attempted to be met with, she reports that she wants to go, however she is still quite distorted needing multiple redirections saying that she has sued the hospital calling mental hygiene legal services speaking in the [facility]. She has been stealing food from other patients and is grossly disorganized. Objective General: poor Speech: rapid Thought processes: tangential Thought content: psychotic delusions Abstract reasoning, and computation: impaired Description of associations: imparied Description of abnormal or psychotic thoughts:Unclear, appears to have psychotic processes going on. Judgment: poor Insight: poor Orientation: Alert and orientated 3 Recent and remote memory: Intact Attention span and concentration: impaired secondary to thought process Fund of knowledge: unable to determine Mood: "I want to go" Affect: flat, little reactivity Assessment schizoaffective disorder, unspecified Plan Will increase Haldol 10 mg BID, decrease sertraline to 75 mg daily is could be causing some chico Vital Signs Vital Signs Date Time Temp Pulse Resp B/P (MAP) Pulse Ox O2 Delivery O2 Flow Rate FiO2 01/10/20 06:34 97.3 112 20 139/76 (97) Room Air 01/09/20 07:23 99 Current Medications Current Medications Medications (Trade) Dose Ordered Sig/Gordo Route PRN Reason Start Time Stop Time Status Last Admin Dose Admin Acetaminophen (Tylenol Tab) 650 mg Q6HP PRN PO HEADACHE or DISCOMFORT 12/31/19 14:30 01/06/20 10:06 Al Hydrox/Mg Hydrox/Simethicone (Mylanta) 30 ml Q4HP PRN PO HEARTBURN/INDIGESTION 12/31/19 14:30 01/08/20 13:54 Amantadine HCl (Symmetrel) 100 mg QHS PO 12/30/19 21:00 12/31/19 15:07 DC 12/30/19 20:52 Amantadine HCl (Symmetrel) 100 mg QHS PO 12/31/19 21:00 01/09/20 21:51 Benztropine Mesylate (Cogentin) 1 mg BID PO 12/30/19 21:00 12/31/19 16:57 DC 12/31/19 08:56 Benztropine Mesylate (Cogentin) 1 mg QHS PO 12/31/19 21:00 01/09/20 21:51 Diphenhydramine HCl (Benadryl) 50 mg STAT STAT IM 01/06/20 12:02 01/06/20 12:05 DC 01/06/20 12:14 Diphenhydramine HCl (Benadryl) 50 mg STAT STAT IM 01/09/20 14:57 01/09/20 15:01 DC 01/09/20 15:16 Diphenhydramine HCl (Benadryl) 50 mg STAT STAT IM 01/09/20 17:15 01/09/20 17:18 DC 01/09/20 17:31 Docusate Sodium (Colace) 100 mg DAILY PO 01/01/20 09:00 01/10/20 09:13 Ferrous Sulfate (Ferrous Sulfate) 325 mg DAILY PO 12/31/19 09:00 12/31/19 15:10 DC 12/31/19 08:56 Ferrous Sulfate (Ferrous Sulfate) 325 mg DAILY PO 01/01/20 09:00 01/10/20 09:12 Folic Acid (Folic Acid) 1 mg DAILY PO 12/31/19 09:00 12/31/19 15:10 DC 12/31/19 08:56 Folic Acid (Folic Acid) 1 mg DAILY PO 01/01/20 09:00 01/10/20 09:13 Haloperidol (Haldol) 2.5 mg BID PO 12/30/19 21:00 12/31/19 15:06 DC 12/31/19 08:56 Haloperidol (Haldol) 2.5 mg BID PO 12/31/19 21:00 01/02/20 11:50 DC 01/02/20 09:05 Haloperidol (Haldol) 5 mg BID PO 01/02/20 21:00 01/10/20 09:13 Haloperidol (Haldol) 10 mg STAT STAT IM 01/06/20 12:02 01/06/20 12:05 DC 01/06/20 12:14 Haloperidol (Haldol) 10 mg STAT STAT IM 01/09/20 14:57 01/09/20 15:01 DC 01/09/20 15:16 Haloperidol (Haldol) 10 mg STAT STAT IM 01/09/20 17:15 01/09/20 17:18 DC 01/09/20 17:31 Home Med (Med Rec Complete!) ASDIRECTED XX 12/30/19 10:45 12/30/19 10:43 DC Lorazepam (Ativan) 2 mg STAT STAT IM 01/06/20 12:02 01/06/20 12:05 DC 01/06/20 12:14 Lorazepam (Ativan) 2 mg STAT STAT IM 01/09/20 14:57 01/09/20 15:01 DC 01/09/20 15:16 Lorazepam (Ativan) 2 mg STAT STAT IM 01/09/20 17:15 01/09/20 17:18 DC 01/09/20 17:31 Lorazepam (Ativan) 2 mg STAT STAT PO 12/30/19 16:21 12/30/19 16:22 DC 12/30/19 16:37 Lorazepam (Ativan) 2 mg STAT STAT PO 12/31/19 12:29 12/31/19 12:30 DC 12/31/19 12:33 Magnesium Hydroxide (Milk Of Magnesia) 30 ml DAILYPRN PRN PO CONSTIPATION 12/31/19 14:30 01/09/20 13:58 Nicotine (Nicoderm Cq 21mg) 1 patch DAILY TD 01/01/20 09:00 01/08/20 08:57 Olanzapine (ZyPREXA ZYDIS) 5 mg Q4HP PRN PO AGITATION 12/31/19 14:30 01/08/20 13:03 Prazosin HCl (Minipress) 1 mg QHS PO 12/30/19 21:00 12/31/19 15:05 DC 12/30/19 20:53 Prazosin HCl (Minipress) 1 mg QHS PO 12/31/19 21:00 01/09/20 21:51 Sertraline HCl (Zoloft) 100 mg DAILY PO 12/31/19 09:00 12/31/19 16:57 DC 12/31/19 08:56 Sertraline HCl (Zoloft) 150 mg DAILY PO 01/01/20 09:00 01/10/20 09:13 Trazodone HCl (Desyrel) 50 mg QHS PRN PO INSOMNIA 12/30/19 16:15 12/31/19 15:04 DC 12/30/19 20:53 Trazodone HCl (Desyrel) 50 mg QHS PRN PO INSOMNIA 12/31/19 15:15 01/08/20 20:04 Vitamin D (Vitamin D) 1,000 units DAILY PO 01/01/20 09:00 01/10/20 09:12 Allergies Coded Allergies: Penicillins (Unverified Allergy, Unknown, 09/02/19) paliperidone (Unverified Adverse Reaction, Unknown, DROOLING, 09/02/19) CÉSAR MURPHY DO Jan 10, 2020 12:33
--- NOTE | 2020-01-10 12:33 | MHPR ---
General Date: Jan 10, 2020 Time: 12:33 Post-Restraint Evaluation THE OUTCOME OF THE RESTRAINT: positive EFFECTIVENESS OF THE RESTRAINT: Mechanical and/or chemical: [Positive]. ANY EVIDENCE THAT THE PATIENT WAS AFFECTED EMOTIONALLY: no ANY NEED FOR COUNSELING/ASSISTANCE: no CHANGES IN TREATMENT PLAN: increase of haldol standing RECOMMENDATIONS FOR FUTURE INCIDENTS: more redirection earlier in episode CÉSAR MURPHY DO Jan 10, 2020 12:33
[2020-01-10 18:18] VITALS: BP 144/65
[2020-01-10] MEDS: AMANTADINE 100MG TABLET PO SCH (20:25)
[2020-01-10] MEDS: BENZTROPINE 1 MG TAB PO SCH (20:25)
[2020-01-10] MEDS: PRAZOSIN 1 MG CAP PO SCH (20:26)
[2020-01-11] MEDS: MOM 30ML SUSPENSION UDC PO PRN (02:33)
[2020-01-11 06:52] VITALS: BP 140/91
[2020-01-11] MEDS: FOLIC ACID 1 MG TAB PO SCH (08:59)
[2020-01-11] MEDS: SERTRALINE HCL 25 MG TABLET PO SCH (08:59)
[2020-01-11] MEDS: DOCUSATE SODIUM 100 MG CAP PO SCH (08:59)
[2020-01-11] MEDS: VITAMIN D 1,000 INTERNATIONAL UNITS TABLET PO SCH (08:59)
[2020-01-11] MEDS: FERROUS SULFATE 325MG TAB PO SCH (08:59)
[2020-01-11] MEDS: NICOTINE 21MG/24HR 1 EA TRANSDERMAL TD SCH (09:00)
[2020-01-11 17:46] VITALS: BP 146/66
[2020-01-11] MEDS: AMANTADINE 100MG TABLET PO SCH (20:20)
[2020-01-11] MEDS: BENZTROPINE 1 MG TAB PO SCH (20:20)
[2020-01-11] MEDS: PRAZOSIN 1 MG CAP PO SCH (20:21)
[2020-01-11] MEDS: traZODone 50 MG TAB PO PRN (23:25)
[2020-01-12] MEDS: OLANZapine ORAL DISINTEGRATING TAB 5MG PO PRN ×2 (00:03→22:58)
[2020-01-12 06:45] VITALS: BP 130/77
[2020-01-12] MEDS: DOCUSATE SODIUM 100 MG CAP PO SCH (09:31)
[2020-01-12] MEDS: FERROUS SULFATE 325MG TAB PO SCH (09:31)
[2020-01-12] MEDS: SERTRALINE HCL 25 MG TABLET PO SCH (09:32)
[2020-01-12] MEDS: VITAMIN D 1,000 INTERNATIONAL UNITS TABLET PO SCH (09:32)
[2020-01-12] MEDS: NICOTINE 21MG/24HR 1 EA TRANSDERMAL TD SCH (09:32)
[2020-01-12] MEDS: FOLIC ACID 1 MG TAB PO SCH (09:32)
[2020-01-12] MEDS: ACETAMINOPHEN TAB 650MG DOSE (2X325MG) PO PRN (12:39)
[2020-01-12 18:48] VITALS: BP 150/76
[2020-01-12] MEDS: BENZTROPINE 1 MG TAB PO SCH (20:51)
[2020-01-12] MEDS: AMANTADINE 100MG TABLET PO SCH (20:52)
[2020-01-12] MEDS: PRAZOSIN 1 MG CAP PO SCH (20:52)
[2020-01-12] MEDS: traZODone 50 MG TAB PO PRN (22:58)
[2020-01-13 06:59] VITALS: BP 151/76
[2020-01-13] MEDS: NICOTINE 21MG/24HR 1 EA TRANSDERMAL TD SCH (08:38)
[2020-01-13] MEDS: DOCUSATE SODIUM 100 MG CAP PO SCH (08:38)
[2020-01-13] MEDS: FOLIC ACID 1 MG TAB PO SCH (08:38)
[2020-01-13] MEDS: VITAMIN D 1,000 INTERNATIONAL UNITS TABLET PO SCH (08:38)
[2020-01-13] MEDS: SERTRALINE HCL 25 MG TABLET PO SCH (08:39)
[2020-01-13] MEDS: FERROUS SULFATE 325MG TAB PO SCH (08:39)
--- NOTE | 2020-01-13 09:50 | MHIPNPDOC ---
[facility] Progress Note Progress Note DATE OF SERVICE: 01/13/20 Subjective HPI: Estella presents today for her schizoaffective disorder. The patient was met with today. She reports that she had no problems this weekend, despite nursing reports that she was quite upset and problematic throughout the weekend, having episodes of agitation. She has very little insight into this and states that she wants to go home. She describes having no problems with her medication. She has been notably hypersexual and disorganized. Objective Behavior: Disorganized. Affect: Flat with little reactivity. Thought Form: Associations appear loosened. Judgement: Poor. Insight: Poor. Assessment F25.9 Schizoaffective disorder, unspecified Plan Continue Haldol. Continue lowering Sertraline, as this could be driving her into a manic episode. She's making slow progress, and will likely need to convert to two provider certification as her progress is very slow at this time. Notably, she is in a much worse state than she normally is when she has been brought in in the past. Vital Signs Vital Signs Date Time Temp Pulse Resp B/P (MAP) Pulse Ox O2 Delivery O2 Flow Rate FiO2 01/13/20 06:59 98.5 73 16 151/76 (101) 01/12/20 18:48 100 Room Air Current Medications Current Medications Medications (Trade) Dose Ordered Sig/Gordo Route PRN Reason Start Time Stop Time Status Last Admin Dose Admin Acetaminophen (Tylenol Tab) 650 mg Q6HP PRN PO HEADACHE or DISCOMFORT 12/31/19 14:30 01/12/20 12:39 Al Hydrox/Mg Hydrox/Simethicone (Mylanta) 30 ml Q4HP PRN PO HEARTBURN/INDIGESTION 12/31/19 14:30 01/08/20 13:54 Amantadine HCl (Symmetrel) 100 mg QHS PO 12/30/19 21:00 12/31/19 15:07 DC 12/30/19 20:52 Amantadine HCl (Symmetrel) 100 mg QHS PO 12/31/19 21:00 01/12/20 20:52 Benztropine Mesylate (Cogentin) 1 mg BID PO 12/30/19 21:00 12/31/19 16:57 DC 12/31/19 08:56 Benztropine Mesylate (Cogentin) 1 mg QHS PO 12/31/19 21:00 01/12/20 20:51 Diphenhydramine HCl (Benadryl) 50 mg STAT STAT IM 01/06/20 12:02 01/06/20 12:05 DC 01/06/20 12:14 Diphenhydramine HCl (Benadryl) 50 mg STAT STAT IM 01/09/20 14:57 01/09/20 15:01 DC 01/09/20 15:16 Diphenhydramine HCl (Benadryl) 50 mg STAT STAT IM 01/09/20 17:15 01/09/20 17:18 DC 01/09/20 17:31 Docusate Sodium (Colace) 100 mg DAILY PO 01/01/20 09:00 01/13/20 08:38 Ferrous Sulfate (Ferrous Sulfate) 325 mg DAILY PO 12/31/19 09:00 12/31/19 15:10 DC 12/31/19 08:56 Ferrous Sulfate (Ferrous Sulfate) 325 mg DAILY PO 01/01/20 09:00 01/13/20 08:39 Folic Acid (Folic Acid) 1 mg DAILY PO 12/31/19 09:00 12/31/19 15:10 DC 12/31/19 08:56 Folic Acid (Folic Acid) 1 mg DAILY PO 01/01/20 09:00 01/13/20 08:38 Haloperidol (Haldol) 2.5 mg BID PO 12/30/19 21:00 12/31/19 15:06 DC 12/31/19 08:56 Haloperidol (Haldol) 2.5 mg BID PO 12/31/19 21:00 01/02/20 11:50 DC 01/02/20 09:05 Haloperidol (Haldol) 5 mg BID PO 01/02/20 21:00 01/10/20 12:35 DC 01/10/20 09:13 Haloperidol (Haldol) 10 mg BID PO 01/10/20 21:00 01/13/20 08:39 Haloperidol (Haldol) 10 mg STAT STAT IM 01/06/20 12:02 01/06/20 12:05 DC 01/06/20 12:14 Haloperidol (Haldol) 10 mg STAT STAT IM 01/09/20 14:57 01/09/20 15:01 DC 01/09/20 15:16 Haloperidol (Haldol) 10 mg STAT STAT IM 01/09/20 17:15 01/09/20 17:18 DC 01/09/20 17:31 Home Med (Med Rec Complete!) ASDIRECTED XX 12/30/19 10:45 12/30/19 10:43 DC Lorazepam (Ativan) 2 mg STAT STAT IM 01/06/20 12:02 01/06/20 12:05 DC 01/06/20 12:14 Lorazepam (Ativan) 2 mg STAT STAT IM 01/09/20 14:57 01/09/20 15:01 DC 01/09/20 15:16 Lorazepam (Ativan) 2 mg STAT STAT IM 01/09/20 17:15 01/09/20 17:18 DC 01/09/20 17:31 Lorazepam (Ativan) 2 mg STAT STAT PO 12/30/19 16:21 12/30/19 16:22 DC 12/30/19 16:37 Lorazepam (Ativan) 2 mg STAT STAT PO 12/31/19 12:29 12/31/19 12:30 DC 12/31/19 12:33 Magnesium Hydroxide (Milk Of Magnesia) 30 ml DAILYPRN PRN PO CONSTIPATION 12/31/19 14:30 01/11/20 02:33 Nicotine (Nicoderm Cq 21mg) 1 patch DAILY TD 01/01/20 09:00 01/13/20 08:38 Olanzapine (ZyPREXA ZYDIS) 5 mg Q4HP PRN PO AGITATION 12/31/19 14:30 01/12/20 22:58 Prazosin HCl (Minipress) 1 mg QHS PO 12/30/19 21:00 12/31/19 15:05 DC 12/30/19 20:53 Prazosin HCl (Minipress) 1 mg QHS PO 12/31/19 21:00 01/12/20 20:52 Sertraline HCl (Zoloft) 75 mg DAILY PO 01/11/20 09:00 01/13/20 08:39 Sertraline HCl (Zoloft) 100 mg DAILY PO 12/31/19 09:00 12/31/19 16:57 DC 12/31/19 08:56 Sertraline HCl (Zoloft) 150 mg DAILY PO 01/01/20 09:00 01/10/20 12:35 DC 01/10/20 09:13 Trazodone HCl (Desyrel) 50 mg QHS PRN PO INSOMNIA 12/30/19 16:15 12/31/19 15:04 DC 12/30/19 20:53 Trazodone HCl (Desyrel) 50 mg QHS PRN PO INSOMNIA 12/31/19 15:15 01/12/20 22:58 Vitamin D (Vitamin D) 1,000 units DAILY PO 01/01/20 09:00 01/13/20 08:38 Allergies Coded Allergies: Penicillins (Unverified Allergy, Unknown, 09/02/19) paliperidone (Unverified Adverse Reaction, Unknown, DROOLING, 09/02/19) CÉSAR MURPHY DO Jan 13, 2020 09:50
[2020-01-13 17:00] VITALS: BP 137/90
[2020-01-13] MEDS: traZODone 50 MG TAB PO PRN (21:34)
[2020-01-13] MEDS: haloperidoL 5 MG TAB PO SCH (21:34)
[2020-01-13] MEDS: BENZTROPINE 1 MG TAB PO SCH (21:34)
[2020-01-13] MEDS: AMANTADINE 100MG TABLET PO SCH (21:35)
[2020-01-13] MEDS: PRAZOSIN 1 MG CAP PO SCH (21:35)
[2020-01-13] MEDS: OLANZapine ORAL DISINTEGRATING TAB 5MG PO PRN (22:08)
[2020-01-14 06:43] VITALS: BP 141/75
[2020-01-14] MEDS: FERROUS SULFATE 325MG TAB PO SCH (08:55)
[2020-01-14] MEDS: FOLIC ACID 1 MG TAB PO SCH (08:55)
[2020-01-14] MEDS: NICOTINE 21MG/24HR 1 EA TRANSDERMAL TD SCH (08:55)
[2020-01-14] MEDS: VITAMIN D 1,000 INTERNATIONAL UNITS TABLET PO SCH (08:55)
[2020-01-14] MEDS: haloperidoL 5 MG TAB PO SCH ×2 (08:55→20:46)
[2020-01-14] MEDS: DOCUSATE SODIUM 100 MG CAP PO SCH (08:55)
[2020-01-14] MEDS ORDERED: SERTRALINE HCL 50 MG TAB PO SCH (09:00)
--- NOTE | 2020-01-14 13:31 | MHIPNPDOC ---
[facility] Progress Note Progress Note DATE OF SERVICE: 01/14/20 Subjective HPI: Estella presents today for her schizoaffective disorder. She has had some behavioral issues, with disorganized beahvior, dancing and talking to unseen others. Thought she noticeably less so on observation, the patient still denies she has any symptoms and wants to go home but is amenable to staying for treatment. She does report she likes the lowered dose of sertraline. She is somewhat guarded during the interview. Objective Behavior: Disorganized. Affect: Flat with little reactivity. Thought Form: Associations appear loosened. Judgement: Poor. Insight: Poor. Assessment F25.9 Schizoaffective disorder, unspecified Plan Continue Haldol 10mg BID, d/c sertraline. Vital Signs Vital Signs Date Time Temp Pulse Resp B/P (MAP) Pulse Ox O2 Delivery O2 Flow Rate FiO2 01/14/20 06:43 97.4 78 16 141/75 (97) 01/12/20 18:48 100 Room Air Current Medications Current Medications Medications (Trade) Dose Ordered Sig/Gordo Route PRN Reason Start Time Stop Time Status Last Admin Dose Admin Acetaminophen (Tylenol Tab) 650 mg Q6HP PRN PO HEADACHE or DISCOMFORT 12/31/19 14:30 01/12/20 12:39 Al Hydrox/Mg Hydrox/Simethicone (Mylanta) 30 ml Q4HP PRN PO HEARTBURN/INDIGESTION 12/31/19 14:30 01/08/20 13:54 Amantadine HCl (Symmetrel) 100 mg QHS PO 12/30/19 21:00 12/31/19 15:07 DC 12/30/19 20:52 Amantadine HCl (Symmetrel) 100 mg QHS PO 12/31/19 21:00 01/13/20 21:35 Benztropine Mesylate (Cogentin) 1 mg BID PO 12/30/19 21:00 12/31/19 16:57 DC 12/31/19 08:56 Benztropine Mesylate (Cogentin) 1 mg QHS PO 12/31/19 21:00 01/13/20 21:34 Diphenhydramine HCl (Benadryl) 50 mg STAT STAT IM 01/06/20 12:02 01/06/20 12:05 DC 01/06/20 12:14 Diphenhydramine HCl (Benadryl) 50 mg STAT STAT IM 01/09/20 14:57 01/09/20 15:01 DC 01/09/20 15:16 Diphenhydramine HCl (Benadryl) 50 mg STAT STAT IM 01/09/20 17:15 01/09/20 17:18 DC 01/09/20 17:31 Docusate Sodium (Colace) 100 mg DAILY PO 01/01/20 09:00 01/14/20 08:55 Ferrous Sulfate (Ferrous Sulfate) 325 mg DAILY PO 12/31/19 09:00 12/31/19 15:10 DC 12/31/19 08:56 Ferrous Sulfate (Ferrous Sulfate) 325 mg DAILY PO 01/01/20 09:00 01/14/20 08:55 Folic Acid (Folic Acid) 1 mg DAILY PO 12/31/19 09:00 12/31/19 15:10 DC 12/31/19 08:56 Folic Acid (Folic Acid) 1 mg DAILY PO 01/01/20 09:00 01/14/20 08:55 Haloperidol (Haldol) 2.5 mg BID PO 12/30/19 21:00 12/31/19 15:06 DC 12/31/19 08:56 Haloperidol (Haldol) 2.5 mg BID PO 12/31/19 21:00 01/02/20 11:50 DC 01/02/20 09:05 Haloperidol (Haldol) 5 mg BID PO 01/02/20 21:00 01/10/20 12:35 DC 01/10/20 09:13 Haloperidol (Haldol) 10 mg BID PO 01/10/20 21:00 01/13/20 11:24 DC 01/13/20 08:39 Haloperidol (Haldol) 10 mg STAT STAT IM 01/06/20 12:02 01/06/20 12:05 DC 01/06/20 12:14 Haloperidol (Haldol) 10 mg STAT STAT IM 01/09/20 14:57 01/09/20 15:01 DC 01/09/20 15:16 Haloperidol (Haldol) 10 mg STAT STAT IM 01/09/20 17:15 01/09/20 17:18 DC 01/09/20 17:31 Haloperidol (Haldol) 15 mg BID PO 01/13/20 21:00 01/14/20 08:55 Home Med (Med Rec Complete!) ASDIRECTED XX 12/30/19 10:45 12/30/19 10:43 DC Lorazepam (Ativan) 2 mg STAT STAT IM 01/06/20 12:02 01/06/20 12:05 DC 01/06/20 12:14 Lorazepam (Ativan) 2 mg STAT STAT IM 01/09/20 14:57 01/09/20 15:01 DC 01/09/20 15:16 Lorazepam (Ativan) 2 mg STAT STAT IM 01/09/20 17:15 01/09/20 17:18 DC 01/09/20 17:31 Lorazepam (Ativan) 2 mg STAT STAT PO 12/30/19 16:21 12/30/19 16:22 DC 12/30/19 16:37 Lorazepam (Ativan) 2 mg STAT STAT PO 12/31/19 12:29 12/31/19 12:30 DC 12/31/19 12:33 Magnesium Hydroxide (Milk Of Magnesia) 30 ml DAILYPRN PRN PO CONSTIPATION 12/31/19 14:30 01/11/20 02:33 Nicotine (Nicoderm Cq 21mg) 1 patch DAILY TD 01/01/20 09:00 01/14/20 08:55 Olanzapine (ZyPREXA ZYDIS) 5 mg Q4HP PRN PO AGITATION 12/31/19 14:30 01/13/20 22:08 Prazosin HCl (Minipress) 1 mg QHS PO 12/30/19 21:00 12/31/19 15:05 DC 12/30/19 20:53 Prazosin HCl (Minipress) 1 mg QHS PO 12/31/19 21:00 01/13/20 21:35 Sertraline HCl (Zoloft) 50 mg DAILY PO 01/14/20 09:00 01/14/20 08:55 Sertraline HCl (Zoloft) 75 mg DAILY PO 01/11/20 09:00 01/13/20 11:24 DC 01/13/20 08:39 Sertraline HCl (Zoloft) 100 mg DAILY PO 12/31/19 09:00 12/31/19 16:57 DC 12/31/19 08:56 Sertraline HCl (Zoloft) 150 mg DAILY PO 01/01/20 09:00 01/10/20 12:35 DC 01/10/20 09:13 Trazodone HCl (Desyrel) 50 mg QHS PRN PO INSOMNIA 12/30/19 16:15 12/31/19 15:04 DC 12/30/19 20:53 Trazodone HCl (Desyrel) 50 mg QHS PRN PO INSOMNIA 12/31/19 15:15 01/13/20 21:34 Vitamin D (Vitamin D) 1,000 units DAILY PO 01/01/20 09:00 01/14/20 08:55 Allergies Coded Allergies: Penicillins (Unverified Allergy, Unknown, 09/02/19) paliperidone (Unverified Adverse Reaction, Unknown, DROOLING, 09/02/19) CÉSAR MURPHY DO Jan 14, 2020 13:31
[2020-01-14] MEDS: MOM 30ML SUSPENSION UDC PO PRN (14:13)
[2020-01-14 16:32] VITALS: BP 131/73
[2020-01-14] MEDS: BENZTROPINE 1 MG TAB PO SCH (20:46)
[2020-01-14] MEDS: AMANTADINE 100MG TABLET PO SCH (20:46)
[2020-01-14] MEDS: PRAZOSIN 1 MG CAP PO SCH (20:46)
[2020-01-14] MEDS: OLANZapine ORAL DISINTEGRATING TAB 5MG PO PRN (22:26)
[2020-01-14] MEDS: traZODone 50 MG TAB PO PRN (22:26)
[2020-01-15] MEDS ORDERED: LORazepam 2 MG TAB PO ONE (02:15)
[2020-01-15 06:44] VITALS: BP 148/80
[2020-01-15] MEDS: NICOTINE 21MG/24HR 1 EA TRANSDERMAL TD SCH (09:00)
[2020-01-15] MEDS: DOCUSATE SODIUM 100 MG CAP PO SCH (09:38)
[2020-01-15] MEDS: FERROUS SULFATE 325MG TAB PO SCH (09:38)
[2020-01-15] MEDS: VITAMIN D 1,000 INTERNATIONAL UNITS TABLET PO SCH (09:38)
[2020-01-15] MEDS: FOLIC ACID 1 MG TAB PO SCH (09:38)
[2020-01-15] MEDS: haloperidoL 5 MG TAB PO SCH ×2 (09:38→21:16)
--- NOTE | 2020-01-15 10:25 | MHIPNPDOC ---
[facility] Progress Note Progress Note DATE OF SERVICE: 01/15/20 Subjective HPI: Attempted to meet with patient today, however, she was quite sedated. She apparently had trouble sleeping, and was given two milligrams of Ativan. She was sleeping comfortably, but otherwise would not awaken for this provider. It appears that she's been tired throughout the day. No interview could be conducted. Objective Behavior: She's sleeping comfortably. No acute distress. Awakes for short periods of time but goes back to sleep. Assessment F25.9 Schizoaffective disorder, unspecified Plan Continue medication as current, Haldol primarily. She could be good option for Decanoate. Sertraline has been discontinued due to her condition. Vital Signs Vital Signs Date Time Temp Pulse Resp B/P (MAP) Pulse Ox O2 Delivery O2 Flow Rate FiO2 01/15/20 06:44 96.3 88 18 148/80 (102) 01/12/20 18:48 100 Room Air Current Medications Current Medications Medications (Trade) Dose Ordered Sig/Gordo Route PRN Reason Start Time Stop Time Status Last Admin Dose Admin Acetaminophen (Tylenol Tab) 650 mg Q6HP PRN PO HEADACHE or DISCOMFORT 12/31/19 14:30 01/12/20 12:39 Al Hydrox/Mg Hydrox/Simethicone (Mylanta) 30 ml Q4HP PRN PO HEARTBURN/INDIGESTION 12/31/19 14:30 01/08/20 13:54 Amantadine HCl (Symmetrel) 100 mg QHS PO 12/30/19 21:00 12/31/19 15:07 DC 12/30/19 20:52 Amantadine HCl (Symmetrel) 100 mg QHS PO 12/31/19 21:00 01/14/20 20:46 Benztropine Mesylate (Cogentin) 1 mg BID PO 12/30/19 21:00 12/31/19 16:57 DC 12/31/19 08:56 Benztropine Mesylate (Cogentin) 1 mg QHS PO 12/31/19 21:00 01/14/20 20:46 Diphenhydramine HCl (Benadryl) 50 mg STAT STAT IM 01/06/20 12:02 01/06/20 12:05 DC 01/06/20 12:14 Diphenhydramine HCl (Benadryl) 50 mg STAT STAT IM 01/09/20 14:57 01/09/20 15:01 DC 01/09/20 15:16 Diphenhydramine HCl (Benadryl) 50 mg STAT STAT IM 01/09/20 17:15 01/09/20 17:18 DC 01/09/20 17:31 Docusate Sodium (Colace) 100 mg DAILY PO 01/01/20 09:00 01/15/20 09:38 Ferrous Sulfate (Ferrous Sulfate) 325 mg DAILY PO 12/31/19 09:00 12/31/19 15:10 DC 12/31/19 08:56 Ferrous Sulfate (Ferrous Sulfate) 325 mg DAILY PO 01/01/20 09:00 01/15/20 09:38 Folic Acid (Folic Acid) 1 mg DAILY PO 12/31/19 09:00 12/31/19 15:10 DC 12/31/19 08:56 Folic Acid (Folic Acid) 1 mg DAILY PO 01/01/20 09:00 01/15/20 09:38 Haloperidol (Haldol) 2.5 mg BID PO 12/30/19 21:00 12/31/19 15:06 DC 12/31/19 08:56 Haloperidol (Haldol) 2.5 mg BID PO 12/31/19 21:00 01/02/20 11:50 DC 01/02/20 09:05 Haloperidol (Haldol) 5 mg BID PO 01/02/20 21:00 01/10/20 12:35 DC 01/10/20 09:13 Haloperidol (Haldol) 10 mg BID PO 01/10/20 21:00 01/13/20 11:24 DC 01/13/20 08:39 Haloperidol (Haldol) 10 mg STAT STAT IM 01/06/20 12:02 01/06/20 12:05 DC 01/06/20 12:14 Haloperidol (Haldol) 10 mg STAT STAT IM 01/09/20 14:57 01/09/20 15:01 DC 01/09/20 15:16 Haloperidol (Haldol) 10 mg STAT STAT IM 01/09/20 17:15 01/09/20 17:18 DC 01/09/20 17:31 Haloperidol (Haldol) 15 mg BID PO 01/13/20 21:00 01/15/20 09:38 Home Med (Med Rec Complete!) ASDIRECTED XX 12/30/19 10:45 12/30/19 10:43 DC Lorazepam (Ativan) 2 mg STAT STAT IM 01/06/20 12:02 01/06/20 12:05 DC 01/06/20 12:14 Lorazepam (Ativan) 2 mg STAT STAT IM 01/09/20 14:57 01/09/20 15:01 DC 01/09/20 15:16 Lorazepam (Ativan) 2 mg STAT STAT IM 01/09/20 17:15 01/09/20 17:18 DC 01/09/20 17:31 Lorazepam (Ativan) 2 mg STAT STAT PO 12/30/19 16:21 12/30/19 16:22 DC 12/30/19 16:37 Lorazepam (Ativan) 2 mg STAT STAT PO 12/31/19 12:29 12/31/19 12:30 DC 12/31/19 12:33 Magnesium Hydroxide (Milk Of Magnesia) 30 ml DAILYPRN PRN PO CONSTIPATION 12/31/19 14:30 01/14/20 14:13 Nicotine (Nicoderm Cq 21mg) 1 patch DAILY TD 01/01/20 09:00 01/14/20 08:55 Olanzapine (ZyPREXA ZYDIS) 5 mg Q4HP PRN PO AGITATION 12/31/19 14:30 01/14/20 22:26 Prazosin HCl (Minipress) 1 mg QHS PO 12/30/19 21:00 12/31/19 15:05 DC 12/30/19 20:53 Prazosin HCl (Minipress) 1 mg QHS PO 12/31/19 21:00 01/14/20 20:46 Sertraline HCl (Zoloft) 50 mg DAILY PO 01/14/20 09:00 01/14/20 14:44 DC 01/14/20 08:55 Sertraline HCl (Zoloft) 75 mg DAILY PO 01/11/20 09:00 01/13/20 11:24 DC 01/13/20 08:39 Sertraline HCl (Zoloft) 100 mg DAILY PO 12/31/19 09:00 12/31/19 16:57 DC 12/31/19 08:56 Sertraline HCl (Zoloft) 150 mg DAILY PO 01/01/20 09:00 01/10/20 12:35 DC 01/10/20 09:13 Trazodone HCl (Desyrel) 50 mg QHS PRN PO INSOMNIA 12/30/19 16:15 12/31/19 15:04 DC 12/30/19 20:53 Trazodone HCl (Desyrel) 50 mg QHS PRN PO INSOMNIA 12/31/19 15:15 01/14/20 22:26 Vitamin D (Vitamin D) 1,000 units DAILY PO 01/01/20 09:00 01/15/20 09:38 Allergies Coded Allergies: Penicillins (Unverified Allergy, Unknown, 09/02/19) paliperidone (Unverified Adverse Reaction, Unknown, DROOLING, 09/02/19) CÉSAR MURPHY DO Jan 15, 2020 10:25
[2020-01-15 16:31] VITALS: BP 139/78
[2020-01-15] MEDS: PRAZOSIN 1 MG CAP PO SCH (21:15)
[2020-01-15] MEDS: AMANTADINE 100MG TABLET PO SCH (21:15)
[2020-01-15] MEDS: BENZTROPINE 1 MG TAB PO SCH (21:15)
[2020-01-15] MEDS: traZODone 50 MG TAB PO PRN (22:15)
[2020-01-16 07:11] VITALS: BP 147/82
[2020-01-16] MEDS: DOCUSATE SODIUM 100 MG CAP PO SCH (08:36)
[2020-01-16] MEDS: FOLIC ACID 1 MG TAB PO SCH (08:36)
[2020-01-16] MEDS: haloperidoL 5 MG TAB PO SCH ×2 (08:37→21:22)
[2020-01-16] MEDS: FERROUS SULFATE 325MG TAB PO SCH (08:37)
[2020-01-16] MEDS: NICOTINE 21MG/24HR 1 EA TRANSDERMAL TD SCH (08:37)
[2020-01-16] MEDS: VITAMIN D 1,000 INTERNATIONAL UNITS TABLET PO SCH (08:37)
[2020-01-16] MEDS: MAALOX 30 ML SUSP *UDC PO PRN (09:27)
--- NOTE | 2020-01-16 11:19 | MHIPNPDOC ---
[facility] Progress Note Progress Note DATE OF SERVICE: 01/16/20 Subjective HPI: Patient presents today for a a follow up for her schizoaffective disorder. She is better at today's visit, and she hasn't had a major episode. However, she does seem to display unusual behaviors such as talking to herself as she walks around. Patient has not been agitated. Patient denies homicidal and suicidal ideation. MEDICATIONS: She feels better stopping Sertraline, and she is open to have [place] in recalculated dose. She seems to be stabilizing with 1 mg of Cogentin nightly for tremors. Objective Behavior: Pleasant. Engaged. Cooperative with good eye contact. Mood: amenable to objective exam. Appropriately reactive. Generally good. Euthymic. Cognition: Alert, Attentive, and Oriented to person, place, time. grossly intact. Thought Content: No evidence of aggressive or homicidal ideation. No thoughts of self harm. No evidence of delusions. No evidence of suicidal ideation. Assessment F25.9 Schizoaffective disorder, unspecified Plan Continue Haldol 15 mg BID calculated closest dose to 100 mg IM . Continue taking Cogentin 1 mg nightly for tremors. Prazosin 1 mg nightly for nightmares. She could potentially return home to [facility] in the coming week if she continues to improve with [place]. Vital Signs Vital Signs Date Time Temp Pulse Resp B/P (MAP) Pulse Ox O2 Delivery O2 Flow Rate FiO2 01/16/20 07:50 Room Air 01/16/20 07:11 98.0 63 18 147/82 (103) 01/12/20 18:48 100 Current Medications Current Medications Medications (Trade) Dose Ordered Sig/Gordo Route PRN Reason Start Time Stop Time Status Last Admin Dose Admin Acetaminophen (Tylenol Tab) 650 mg Q6HP PRN PO HEADACHE or DISCOMFORT 12/31/19 14:30 01/12/20 12:39 Al Hydrox/Mg Hydrox/Simethicone (Mylanta) 30 ml Q4HP PRN PO HEARTBURN/INDIGESTION 12/31/19 14:30 01/16/20 09:27 Amantadine HCl (Symmetrel) 100 mg QHS PO 12/30/19 21:00 12/31/19 15:07 DC 12/30/19 20:52 Amantadine HCl (Symmetrel) 100 mg QHS PO 12/31/19 21:00 01/15/20 21:15 Benztropine Mesylate (Cogentin) 1 mg BID PO 12/30/19 21:00 12/31/19 16:57 DC 12/31/19 08:56 Benztropine Mesylate (Cogentin) 1 mg QHS PO 12/31/19 21:00 01/15/20 21:15 Diphenhydramine HCl (Benadryl) 50 mg STAT STAT IM 01/06/20 12:02 01/06/20 12:05 DC 01/06/20 12:14 Diphenhydramine HCl (Benadryl) 50 mg STAT STAT IM 01/09/20 14:57 01/09/20 15:01 DC 01/09/20 15:16 Diphenhydramine HCl (Benadryl) 50 mg STAT STAT IM 01/09/20 17:15 01/09/20 17:18 DC 01/09/20 17:31 Docusate Sodium (Colace) 100 mg DAILY PO 01/01/20 09:00 01/16/20 08:36 Ferrous Sulfate (Ferrous Sulfate) 325 mg DAILY PO 12/31/19 09:00 12/31/19 15:10 DC 12/31/19 08:56 Ferrous Sulfate (Ferrous Sulfate) 325 mg DAILY PO 01/01/20 09:00 01/16/20 08:37 Folic Acid (Folic Acid) 1 mg DAILY PO 12/31/19 09:00 12/31/19 15:10 DC 12/31/19 08:56 Folic Acid (Folic Acid) 1 mg DAILY PO 01/01/20 09:00 01/16/20 08:36 Haloperidol (Haldol) 2.5 mg BID PO 12/30/19 21:00 12/31/19 15:06 DC 12/31/19 08:56 Haloperidol (Haldol) 2.5 mg BID PO 12/31/19 21:00 01/02/20 11:50 DC 01/02/20 09:05 Haloperidol (Haldol) 5 mg BID PO 01/02/20 21:00 01/10/20 12:35 DC 01/10/20 09:13 Haloperidol (Haldol) 10 mg BID PO 01/10/20 21:00 01/13/20 11:24 DC 01/13/20 08:39 Haloperidol (Haldol) 10 mg STAT STAT IM 01/06/20 12:02 01/06/20 12:05 DC 01/06/20 12:14 Haloperidol (Haldol) 10 mg STAT STAT IM 01/09/20 14:57 01/09/20 15:01 DC 01/09/20 15:16 Haloperidol (Haldol) 10 mg STAT STAT IM 01/09/20 17:15 01/09/20 17:18 DC 01/09/20 17:31 Haloperidol (Haldol) 15 mg BID PO 01/13/20 21:00 01/16/20 08:37 Home Med (Med Rec Complete!) ASDIRECTED XX 12/30/19 10:45 12/30/19 10:43 DC Lorazepam (Ativan) 2 mg STAT STAT IM 01/06/20 12:02 01/06/20 12:05 DC 01/06/20 12:14 Lorazepam (Ativan) 2 mg STAT STAT IM 01/09/20 14:57 01/09/20 15:01 DC 01/09/20 15:16 Lorazepam (Ativan) 2 mg STAT STAT IM 01/09/20 17:15 01/09/20 17:18 DC 01/09/20 17:31 Lorazepam (Ativan) 2 mg STAT STAT PO 12/30/19 16:21 12/30/19 16:22 DC 12/30/19 16:37 Lorazepam (Ativan) 2 mg STAT STAT PO 12/31/19 12:29 12/31/19 12:30 DC 12/31/19 12:33 Magnesium Hydroxide (Milk Of Magnesia) 30 ml DAILYPRN PRN PO CONSTIPATION 12/31/19 14:30 01/14/20 14:13 Nicotine (Nicoderm Cq 21mg) 1 patch DAILY TD 01/01/20 09:00 01/16/20 08:37 Olanzapine (ZyPREXA ZYDIS) 5 mg Q4HP PRN PO AGITATION 12/31/19 14:30 01/14/20 22:26 Prazosin HCl (Minipress) 1 mg QHS PO 12/30/19 21:00 12/31/19 15:05 DC 12/30/19 20:53 Prazosin HCl (Minipress) 1 mg QHS PO 12/31/19 21:00 01/15/20 21:15 Sertraline HCl (Zoloft) 50 mg DAILY PO 01/14/20 09:00 01/14/20 14:44 DC 01/14/20 08:55 Sertraline HCl (Zoloft) 75 mg DAILY PO 01/11/20 09:00 01/13/20 11:24 DC 01/13/20 08:39 Sertraline HCl (Zoloft) 100 mg DAILY PO 12/31/19 09:00 12/31/19 16:57 DC 12/31/19 08:56 Sertraline HCl (Zoloft) 150 mg DAILY PO 01/01/20 09:00 01/10/20 12:35 DC 01/10/20 09:13 Trazodone HCl (Desyrel) 50 mg QHS PRN PO INSOMNIA 12/30/19 16:15 12/31/19 15:04 DC 12/30/19 20:53 Trazodone HCl (Desyrel) 50 mg QHS PRN PO INSOMNIA 12/31/19 15:15 01/15/20 22:15 Vitamin D (Vitamin D) 1,000 units DAILY PO 01/01/20 09:00 01/16/20 08:37 Allergies Coded Allergies: Penicillins (Unverified Allergy, Unknown, 09/02/19) paliperidone (Unverified Adverse Reaction, Unknown, DROOLING, 09/02/19) CÉSAR MURPHY DO Jan 16, 2020 11:19
[2020-01-16] MEDS ORDERED: HALOPERIDOL DECANOATE 100 MG/ML VIAL (J1631) IM ONE (16:30)
[2020-01-16 16:53] VITALS: BP 136/74
[2020-01-16] MEDS: BENZTROPINE 1 MG TAB PO SCH (21:21)
[2020-01-16] MEDS: AMANTADINE 100MG TABLET PO SCH (21:21)
[2020-01-16] MEDS: PRAZOSIN 1 MG CAP PO SCH (21:23)
[2020-01-16] MEDS: traZODone 50 MG TAB PO PRN (21:53)
[2020-01-16] MEDS: ACETAMINOPHEN TAB 650MG DOSE (2X325MG) PO PRN (21:55)
[2020-01-17 06:46] VITALS: BP 126/71
[2020-01-17] MEDS: DOCUSATE SODIUM 100 MG CAP PO SCH (08:51)
[2020-01-17] MEDS: NICOTINE 21MG/24HR 1 EA TRANSDERMAL TD SCH (08:51)
[2020-01-17] MEDS: FERROUS SULFATE 325MG TAB PO SCH (08:51)
[2020-01-17] MEDS: VITAMIN D 1,000 INTERNATIONAL UNITS TABLET PO SCH (08:51)
[2020-01-17] MEDS: haloperidoL 5 MG TAB PO SCH ×2 (08:51→20:59)
[2020-01-17] MEDS: FOLIC ACID 1 MG TAB PO SCH (08:51)
--- NOTE | 2020-01-17 11:06 | MHIPNPDOC ---
[facility] Progress Note Progress Note DATE OF SERVICE: 01/17/20 Subjective HPI/Interval Hx: The patient is met with today, she reports she is feeling better, she is notably less bizarre and paranoid. She saw some moments where she appears to talk to unseen others, but otherwise has been behaviorally and control. She reports that she feels slow Haldol is very helpful is tolerating it well. Objective General: [Well dressed with good hygiene] Speech: [Spontaneous and fluid] Thought processes: [Linear and logical] Thought content: [Future orientated] Abstract reasoning, and computation: improved Description of associations: improved Description of abnormal or psychotic thoughts:[Denies any suicidal or homicidal ideation. Denies any auditory or visual hallucinations. Does not appear to be responding to internal stimuli. Does not appear to be endorsing any bizarre or paranoid ideation.] Judgment: improved Insight: improved Orientation: [Alert and orientated 3] Recent and remote memory: [Intact] Attention span and concentration: [Intact] Fund of knowledge: [Adequate] Mood: ["okay"] Affect: [Euthymic with a full range] Assessment schizophrenia Plan Will continue Haldol 15 mg BID, long-acting injectable is been given, will need oral titration when she leaves possible discharge Monday Vital Signs Vital Signs Date Time Temp Pulse Resp B/P (MAP) Pulse Ox O2 Delivery O2 Flow Rate FiO2 01/17/20 06:46 98.2 72 16 126/71 (89) 99 Room Air Current Medications Current Medications Medications (Trade) Dose Ordered Sig/Gordo Route PRN Reason Start Time Stop Time Status Last Admin Dose Admin Acetaminophen (Tylenol Tab) 650 mg Q6HP PRN PO HEADACHE or DISCOMFORT 12/31/19 14:30 01/16/20 21:55 Al Hydrox/Mg Hydrox/Simethicone (Mylanta) 30 ml Q4HP PRN PO HEARTBURN/INDIGESTION 12/31/19 14:30 01/16/20 09:27 Amantadine HCl (Symmetrel) 100 mg QHS PO 12/30/19 21:00 12/31/19 15:07 DC 12/30/19 20:52 Amantadine HCl (Symmetrel) 100 mg QHS PO 12/31/19 21:00 01/16/20 21:21 Benztropine Mesylate (Cogentin) 1 mg BID PO 10/12/20 21:00 12/31/19 16:57 DC 12/31/19 08:56 Benztropine Mesylate (Cogentin) 1 mg QHS PO 12/31/19 21:00 01/16/20 21:21 Diphenhydramine HCl (Benadryl) 50 mg STAT STAT IM 01/06/20 12:02 01/06/20 12:05 DC 01/06/20 12:14 Diphenhydramine HCl (Benadryl) 50 mg STAT STAT IM 01/09/20 14:57 01/09/20 15:01 DC 01/09/20 15:16 Diphenhydramine HCl (Benadryl) 50 mg STAT STAT IM 01/09/20 17:15 01/09/20 17:18 DC 01/09/20 17:31 Docusate Sodium (Colace) 100 mg DAILY PO 01/01/20 09:00 01/17/20 08:51 Ferrous Sulfate (Ferrous Sulfate) 325 mg DAILY PO 12/31/19 09:00 12/31/19 15:10 DC 12/31/19 08:56 Ferrous Sulfate (Ferrous Sulfate) 325 mg DAILY PO 01/01/20 09:00 01/17/20 08:51 Folic Acid (Folic Acid) 1 mg DAILY PO 12/31/19 09:00 12/31/19 15:10 DC 12/31/19 08:56 Folic Acid (Folic Acid) 1 mg DAILY PO 01/01/20 09:00 01/17/20 08:51 Haloperidol (Haldol) 2.5 mg BID PO 12/30/19 21:00 12/31/19 15:06 DC 12/31/19 08:56 Haloperidol (Haldol) 2.5 mg BID PO 12/31/19 21:00 01/02/20 11:50 DC 01/02/20 09:05 Haloperidol (Haldol) 5 mg BID PO 01/02/20 21:00 01/10/20 12:35 DC 01/10/20 09:13 Haloperidol (Haldol) 10 mg BID PO 01/10/20 21:00 01/13/20 11:24 DC 01/13/20 08:39 Haloperidol (Haldol) 10 mg STAT STAT IM 01/06/20 12:02 01/06/20 12:05 DC 01/06/20 12:14 Haloperidol (Haldol) 10 mg STAT STAT IM 01/09/20 14:57 01/09/20 15:01 DC 01/09/20 15:16 Haloperidol (Haldol) 10 mg STAT STAT IM 01/09/20 17:15 01/09/20 17:18 DC 01/09/20 17:31 Haloperidol (Haldol) 15 mg BID PO 01/13/20 21:00 01/17/20 08:51 Home Med (Med Rec Complete!) ASDIRECTED XX 12/30/19 10:45 12/30/19 10:43 DC Lorazepam (Ativan) 2 mg STAT STAT IM 01/06/20 12:02 01/06/20 12:05 DC 01/06/20 12:14 Lorazepam (Ativan) 2 mg STAT STAT IM 01/09/20 14:57 01/09/20 15:01 DC 01/09/20 15:16 Lorazepam (Ativan) 2 mg STAT STAT IM 01/09/20 17:15 01/09/20 17:18 DC 01/09/20 17:31 Lorazepam (Ativan) 2 mg STAT STAT PO 12/30/19 16:21 12/30/19 16:22 DC 12/30/19 16:37 Lorazepam (Ativan) 2 mg STAT STAT PO 12/31/19 12:29 12/31/19 12:30 DC 12/31/19 12:33 Magnesium Hydroxide (Milk Of Magnesia) 30 ml DAILYPRN PRN PO CONSTIPATION 12/31/19 14:30 01/14/20 14:13 Nicotine (Nicoderm Cq 21mg) 1 patch DAILY TD 01/01/20 09:00 01/17/20 08:51 Olanzapine (ZyPREXA ZYDIS) 5 mg Q4HP PRN PO AGITATION 12/31/19 14:30 01/14/20 22:26 Prazosin HCl (Minipress) 1 mg QHS PO 12/30/19 21:00 12/31/19 15:05 DC 12/30/19 20:53 Prazosin HCl (Minipress) 1 mg QHS PO 12/31/19 21:00 01/16/20 21:23 Sertraline HCl (Zoloft) 50 mg DAILY PO 01/14/20 09:00 01/14/20 14:44 DC 01/14/20 08:55 Sertraline HCl (Zoloft) 75 mg DAILY PO 01/11/20 09:00 01/13/20 11:24 DC 01/13/20 08:39 Sertraline HCl (Zoloft) 100 mg DAILY PO 12/31/19 09:00 12/31/19 16:57 DC 12/31/19 08:56 Sertraline HCl (Zoloft) 150 mg DAILY PO 01/01/20 09:00 01/10/20 12:35 DC 01/10/20 09:13 Trazodone HCl (Desyrel) 50 mg QHS PRN PO INSOMNIA 12/30/19 16:15 12/31/19 15:04 DC 12/30/19 20:53 Trazodone HCl (Desyrel) 50 mg QHS PRN PO INSOMNIA 12/31/19 15:15 01/16/20 21:53 Vitamin D (Vitamin D) 1,000 units DAILY PO 01/01/20 09:00 01/17/20 08:51 Allergies Coded Allergies: Penicillins (Unverified Allergy, Unknown, 09/02/19) paliperidone (Unverified Adverse Reaction, Unknown, DROOLING, 09/02/19) CÉSAR MURPHY DO Jan 17, 2020 11:06
[2020-01-17 16:10] VITALS: BP 133/78
[2020-01-17] MEDS: MAALOX 30 ML SUSP *UDC PO PRN (20:58)
[2020-01-17] MEDS: AMANTADINE 100MG TABLET PO SCH (20:58)
[2020-01-17] MEDS: BENZTROPINE 1 MG TAB PO SCH (20:59)
[2020-01-17] MEDS: PRAZOSIN 1 MG CAP PO SCH (21:00)
[2020-01-17] MEDS: traZODone 50 MG TAB PO PRN (21:29)
[2020-01-18 06:41] VITALS: BP 130/76
[2020-01-18] MEDS: NICOTINE 21MG/24HR 1 EA TRANSDERMAL TD SCH (09:06)
[2020-01-18] MEDS: DOCUSATE SODIUM 100 MG CAP PO SCH (09:07)
[2020-01-18] MEDS: VITAMIN D 1,000 INTERNATIONAL UNITS TABLET PO SCH (09:07)
[2020-01-18] MEDS: haloperidoL 5 MG TAB PO SCH ×2 (09:07→20:46)
[2020-01-18] MEDS: FERROUS SULFATE 325MG TAB PO SCH (09:07)
[2020-01-18] MEDS: FOLIC ACID 1 MG TAB PO SCH (09:07)
[2020-01-18 16:31] VITALS: BP 118/75
[2020-01-18] MEDS: AMANTADINE 100MG TABLET PO SCH (20:46)
[2020-01-18] MEDS: PRAZOSIN 1 MG CAP PO SCH (20:46)
[2020-01-18] MEDS: BENZTROPINE 1 MG TAB PO SCH (20:46)
[2020-01-18] MEDS: traZODone 50 MG TAB PO PRN (21:09)
[2020-01-18] MEDS: OLANZapine ORAL DISINTEGRATING TAB 5MG PO PRN (23:30)
[2020-01-19] MEDS: VITAMIN D 1,000 INTERNATIONAL UNITS TABLET PO SCH (09:33)
[2020-01-19] MEDS: DOCUSATE SODIUM 100 MG CAP PO SCH (09:33)
[2020-01-19] MEDS: FOLIC ACID 1 MG TAB PO SCH (09:33)
[2020-01-19] MEDS: haloperidoL 5 MG TAB PO SCH ×2 (09:33→21:06)
[2020-01-19] MEDS: NICOTINE 21MG/24HR 1 EA TRANSDERMAL TD SCH (09:34)
[2020-01-19] MEDS: FERROUS SULFATE 325MG TAB PO SCH (09:34)
[2020-01-19 16:49] VITALS: BP 128/67
[2020-01-19 21:06] VITALS: BP 120/72
[2020-01-19] MEDS: AMANTADINE 100MG TABLET PO SCH (21:06)
[2020-01-19] MEDS: PRAZOSIN 1 MG CAP PO SCH (21:06)
[2020-01-19] MEDS: BENZTROPINE 1 MG TAB PO SCH (21:06)
[2020-01-19] MEDS: traZODone 50 MG TAB PO PRN (22:28)
[2020-01-20 07:03] VITALS: BP 128/73
[2020-01-20] MEDS: VITAMIN D 1,000 INTERNATIONAL UNITS TABLET PO SCH (08:44)
[2020-01-20] MEDS: FERROUS SULFATE 325MG TAB PO SCH (08:44)
[2020-01-20] MEDS: DOCUSATE SODIUM 100 MG CAP PO SCH (08:44)
[2020-01-20] MEDS: haloperidoL 5 MG TAB PO SCH (08:44)
[2020-01-20] MEDS: FOLIC ACID 1 MG TAB PO SCH (08:44)
[2020-01-20] MEDS: NICOTINE 21MG/24HR 1 EA TRANSDERMAL TD SCH (08:45)
--- NOTE | 2020-01-20 10:12 | MHDSPDOC ---
[facility] Discharge Summary Discharge Summary DATE OF ADMISSION: Dec 31, 2019 at 14:27 DATE OF DISCHARGE: Jan 20, 2020 at 13:51 DISCHARGE DIAGNOSES: CONSULTANTS INVOLVED:[ None (basic hospitalist screening)] REASON FOR ADMISSION & TREATMENT AND PROGRESS ON THE UNIT : DISCHARGE ASSESSMENT:[improved] Legal status considerations: The patient at the time of discharge did not meet criteria for involuntary admission/extension due to having a [normal] mental status exam, [fair] insight into the situation, They are engaged in the discharge process, as well as being friendly and amenable in behavioral control and havent been engaging in any observed concerning behavior or ideation recently. They decline voluntary extension/admission at this time and must be discharged in good [place], as Im unable to make a case for holding the patient against their will. They may have historical risk factors of admissions and other interactions with psychiatry however, those are not modifiable from a clinical perspective. The patient will need to be discharged in [facility] [place]. MENTAL STATUS EXAMINATION ON DISCHARGE: [General: Well dressed with good hygiene Speech: Spontaneous and fluid Thought processes: Linear and logical Thought content: Future orientated Abstract reasoning, and computation: Intact Description of associations: Intact Description of abnormal or psychotic thoughts:Denies any suicidal or homicidal ideation. Denies any auditory or visual hallucinations. Does not appear to be responding to internal stimuli. Does not appear to be endorsing any bizarre or paranoid ideation. Judgment: fair Insight: fair Orientation: Alert and orientated 3 Recent and remote memory: Intact Attention span and concentration: Intact Fund of knowledge: Adequate Mood: "okay" Affect: Euthymic with a full range] PLAN/FOLLOWUP ARRANGEMENTS: Follow up appointments made (PCP and MH in 5 days of D/C date) and safety plan completed. Safety Planning aspects completed prior to discharge [Medication supplies limited to 7 days with 4 refills to prevent accumulation to OD] [Family contact completed, educated on safe practices, instructed on removal and mitigation of dangerous means] [RN reviewed crisis hotline information and other aspects to empower patient to access care in interim before next appointment.] The amount of time spent in the coordination of care for this patient was a pproximately 30 minutes. Vital Signs/I&Os Vital Signs Date Time Temp Pulse Resp B/P (MAP) Pulse Ox O2 Delivery O2 Flow Rate FiO2 01/20/20 07:03 97.6 80 12 128/73 (91) Room Air 01/18/20 06:41 100 Medications Scheduled Amantadine HCl (Amantadine) 100 Mg Tablet, 100 MG PO QHS, (Reported) Benztropine Mesylate (Benztropine Mesylate) 1 Mg Tablet, 1 MG PO QHS for EPS, (Reported) Cholecalciferol (Vitamin D3) (Vitamin D3) 25 Mcg Tablet, 25 MCG PO DAILY, (Reported) Docusate Sodium (Colace) 100 Mg Cap, 100 MG PO DAILY, (Reported) Ferrous Sulfate (Ferrous Sulfate) 325 Mg Tab, 325 MG PO DAILY, (Reported) Folic Acid (Folic Acid) 1 Mg Tab, 1 MG PO DAILY, (Reported) Haloperidol (Haloperidol) 5 Mg Tablet, 15 MG PO BID for thoughts for 7 Days, #21 Haloperidol Decanoate (Haloperidol Decanoate) 100 Mg/Ml Soln, 100 MG IM QMONTH for PSYCHOSIS, (Reported) Nicotine (Nicotine Patch) 21 Mg Patch.td24, 1 PATCH TD DAILY for tobacco for 30 Days, #30 Prazosin Hcl (Prazosin HCl) 1 Mg Capsule, 1 MG PO QHS, (Reported) Scheduled PRN Trazodone HCl (Trazodone HCl) 50 Mg Tablet, 50 MG PO QHS PRN for INSOMNIA, (Reported) Allergies Coded Allergies: Penicillins (Unverified Allergy, Unknown, 09/02/19) paliperidone (Unverified Adverse Reaction, Unknown, DROOLING, 09/02/19) CÉSAR MURPHY DO Jan 20, 2020 10:12
[2020-01-20] MEDS ORDERED: HALO5TA PO (10:37)
[2020-01-20] MEDS ORDERED: NICO21PAT TD (10:37)
== END 2020-01-20 13:51 | disposition home or self-care (01) | DRG 750 ==
LOC: M ED 09:22 → M ED INP 12-31 14:27 → M PSY 12-31 14:59
PROVIDERS: ADMIT Psychiatry & Neurology Addiction Medicine; ATTEND Psychiatry & Neurology Addiction Medicine
DX: F25.0 Schizoaffective disorder, bipolar type (principal); Z59.0 Homelessness; D25.9 Leiomyoma of uterus, unspecified; Z88.0 Allergy status to penicillin; Z88.8 Allergy status to other drugs, medicaments and biological substances; Z79.899 Other long term (current) drug therapy; F17.210 Nicotine dependence, cigarettes, uncomplicated; R73.01 Impaired fasting glucose; N92.6 Irregular menstruation, unspecified; Z78.1 Physical restraint status; R55 Syncope and collapse

== ENCOUNTER → 2020-01-23 | Outpatient (REF) | payer OTHER ==
[~2020-01-23] MED LIST changes: +CEFD1CAP8; +SERT-138; +VITA-122 PO
[2020-01-23 14:19] LABS: HCG, SERUM QUALITATIVE NEGATIVE (NEGATIVE)
[2020-01-23 14:26] LABS: HCG, SERUM QUANTITATIVE < 1.0 MIU/ML
== END ==
LOC: M LAB REF 12:23
PROVIDERS: ATTEND Physician Assistant
DX: N91.2 Amenorrhea, unspecified (principal)

== ENCOUNTER 2020-01-25 20:17 | Emergency (ER) | payer OTHER ==
[~2020-01-25] VITALS: Ht 162.6 cm; Wt 90.9 kg
[~2020-01-25 20:17] MED LIST changes: -CEFD1CAP8; -SERT-138
[2020-01-25 20:18] VITALS: BP 125/72
== END 2020-01-25 22:12 | disposition home or self-care (01) ==
LOC: M ED 20:17
DX: S61.257A Open bite of left little finger without damage to nail, initial encounter (principal); W55.81XA Bitten by other mammals, initial encounter; Y92.238 Other place in hospital as the place of occurrence of the external cause; Y93.89 Activity, other specified; Y99.8 Other external cause status

== ENCOUNTER 2020-01-27 00:12 | Emergency (ER) | payer OTHER ==
[~2020-01-27] VITALS: Ht 162.6 cm; Wt 90.9 kg
[2020-01-27 00:38] LABS: BASO # 0.1 10^3/uL (0.0-0.2); BASO % 0.5 % (0.0-1.0); EOS # 0.3 10^3/uL (0.0-0.5); EOS % 2.6 % (0.0-3.0); HEMATOCRIT 34.9 % (36.0-47.0); HEMOGLOBIN 11.1 g/dl (12.0-15.5); LYMPH # 3.7 10^3/uL (1.5-5.0); MEAN CORPUSCULAR HEMOGLOBIN 29.2 pg (27.0-33.0); MEAN CORPUSCULAR HGB CONC 31.8 g/dl (32.0-36.5); MEAN CORPUSCULAR VOLUME 91.8 fl (80.0-96.0); MONO # 0.9 10^3/uL (0.0-0.8); MONO % 7.8 % (0.0-5.0); NEUTROPHILS % 54.6 % (36.0-66.0); PLATELET COUNT, AUTOMATED 323 10^3/uL (150-450)
[2020-01-27 01:13] LABS: BLOOD UREA NITROGEN 7 MG/DL (7-18); CALCIUM LEVEL 9.4 MG/DL (8.5-10.1); CARBON DIOXIDE LEVEL 27 MEQ/L (21-32); CHLORIDE LEVEL 104 MEQ/L (98-107); CPK CREATINE PHOSPHOKINASE 581 U/L (26-192); CREATININE FOR GFR 0.68 MG/DL (0.55-1.30); GLOMERULAR FILTRATION RATE > 60.0 (>60); GLUCOSE, FASTING 117 MG/DL (70-100); MB/CK RELATIVE INDEX 0.69 (< OR =4); POTASSIUM SERUM 4.4 MEQ/L (3.5-5.1); SODIUM LEVEL 138 MEQ/L (136-145); TROPONIN I < 0.02 NG/ML (< 0.10)
[2020-01-27] MEDS ORDERED: CEFD1CAP8 (01:17)
[2020-01-27] MEDS ORDERED: SERT-138 (01:17)
--- NOTE | 2020-01-27 01:23 | REPVR ---
PROCEDURE INFORMATION: Exam: XR Chest, 1 View Exam date and time: 01/27/2020 1:12 AM Age: 29 years old Clinical indication: Chest pain; Type not specified; Additional info: Cp TECHNIQUE: Imaging protocol: XR of the chest Views: 1 view. COMPARISON: CR Chest, 2 view PA, Lat 07/26/2017 1:42 AM FINDINGS: Lungs: Unremarkable. No consolidation. Pleural space: Unremarkable. No pleural effusion. No pneumothorax. Heart/Mediastinum: Unremarkable. No cardiomegaly. Bones/joints: Unremarkable. IMPRESSION: No acute infiltrates. Electronically signed by: Keith León On 01/27/2020 01:23:25 AM
[2020-01-27 02:00] VITALS: BP 122/71
--- NOTE | 2020-01-27 09:53 | ECGEPIP ---
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
== END 2020-01-27 02:19 | disposition home or self-care (01) ==
LOC: M ED 00:12
DX: R07.89 Other chest pain (principal); F43.9 Reaction to severe stress, unspecified; D64.9 Anemia, unspecified; R00.0 Tachycardia, unspecified; I10 Essential (primary) hypertension; F41.9 Anxiety disorder, unspecified; F32.9 Major depressive disorder, single episode, unspecified; F25.9 Schizoaffective disorder, unspecified; R25.1 Tremor, unspecified; Z88.0 Allergy status to penicillin; Z79.899 Other long term (current) drug therapy

== ENCOUNTER 2020-01-31 01:17 | Emergency (ER) | payer OTHER ==
[~2020-01-31] VITALS: Ht 162.6 cm; Wt 106.4 kg
[~2020-01-31 01:17] MED LIST changes: +CEFD1CAP8; +SERT-138
[2020-01-31 02:45] VITALS: BP 114/58
[2020-01-31] MEDS ORDERED: D31000TA2 PO (12:22)
[2020-01-31] MEDS ORDERED: CEFD1CAP8 PO (17:32)
[2020-01-31] MEDS ORDERED: HALO5TA PO (17:32)
== END 2020-01-31 02:47 | disposition home or self-care (01) ==
LOC: M ED 01:17
DX: R09.89 Other specified symptoms and signs involving the circulatory and respiratory systems (principal); F31.89 Other bipolar disorder; Z88.0 Allergy status to penicillin; Z79.899 Other long term (current) drug therapy

== ENCOUNTER 2020-01-31 12:07 | Inpatient (IN) | payer MEDICAID, OTHER ==
[~2020-01-31] VITALS: Ht 162.6 cm; Wt 92.0 kg
[~2020-01-31 12:07] MED LIST changes: +NICO1DIS12 TD; -NICO21DI31 TD
[2020-01-31] MEDS ORDERED: D31000TA2 PO (12:22)
[2020-01-31 12:37] LABS: HEMATOCRIT 34.2 % (36.0-47.0); HEMOGLOBIN 10.7 g/dl (12.0-15.5); MEAN CORPUSCULAR HEMOGLOBIN 29.2 pg (27.0-33.0); MEAN CORPUSCULAR HGB CONC 31.3 g/dl (32.0-36.5); MEAN CORPUSCULAR VOLUME 93.4 fl (80.0-96.0); PLATELET COUNT, AUTOMATED 311 10^3/uL (150-450); RED BLOOD COUNT 3.66 10^6/uL (4.00-5.40); WHITE BLOOD COUNT 7.6 10^3/uL (4.0-10.0)
[2020-01-31 13:04] LABS: AMPHETAMINES LEVEL URINE NEGATIVE (NEGATIVE); BARBITURATES URINE NEGATIVE (NEGATIVE); BENZODIAZEPINES URINE NEGATIVE (NEGATIVE); CANNABINOIDS URINE NEGATIVE (NEGATIVE); COCAINE METABOLITE URINE NEGATIVE (NEGATIVE); METHADONE URINE NEGATIVE (NEGATIVE); OPIATES URINE NEGATIVE (NEGATIVE); PHENCYCLIDINE URINE NEGATIVE (NEGATIVE)
[2020-01-31 13:19] LABS: HCG, SERUM QUALITATIVE NEGATIVE (NEGATIVE)
[2020-01-31 13:21] LABS: ACETAMINOPHEN LEVEL < 2.0 UG/ML (10.0-30.0); ALBUMIN 3.7 GM/DL (3.2-5.2); ALT/SGPT 31 U/L (12-78); BILIRUBIN,DIRECT < 0.1 MG/DL (0.0-0.2); BILIRUBIN,TOTAL 0.1 MG/DL (0.2-1.0); BLOOD UREA NITROGEN 7 MG/DL (7-18); CALCIUM LEVEL 9.6 MG/DL (8.5-10.1); CARBON DIOXIDE LEVEL 28 MEQ/L (21-32); CHLORIDE LEVEL 107 MEQ/L (98-107); CREATININE FOR GFR 0.68 MG/DL (0.55-1.30); ETHYL ALCOHOL (ETHANOL) < 0.003 % (0.000-0.010); GLOMERULAR FILTRATION RATE > 60.0 (>60); GLUCOSE, FASTING 87 MG/DL (70-100); POTASSIUM SERUM 4.5 MEQ/L (3.5-5.1); SALICYLATE LEVEL 5.6 MG/DL (5.0-30.0); SODIUM LEVEL 139 MEQ/L (136-145); THYROID STIMULATING HORMONE 0.619 uIU/ML (0.358-3.740); TOTAL PROTEIN 7.1 GM/DL (6.4-8.2)
[2020-01-31] MEDS ORDERED: HALOPERIDOL 5MG/ML VIAL (J1630 PER 1) As Ordered ONE (13:43)
[2020-01-31] MEDS ORDERED: LORazepam 2 MG/ML VIAL As Ordered ONE (13:43)
[2020-01-31] MEDS ORDERED: HALOPERIDOL 5MG/ML VIAL (J1630 PER 1) IM ONE (13:45)
[2020-01-31] MEDS ORDERED: LORazepam 2 MG/ML VIAL IM ONE (13:45)
--- NOTE | 2020-01-31 13:50 | REP ---
INDICATION: syncope. COMPARISON: Comparison chest x-ray January 27, 2020. TECHNIQUE: Two views.. FINDINGS: The lungs are well inflated and free of infiltrate. The pleural angles are sharp. Pulmonary vasculature is not increased. No significant bony abnormality is seen. Monitoring electrodes are seen overlying the chest. Heart is at the upper range of normal in size. Cardiothoracic ratio measures 53.8%. Pulmonary vasculature is not increased. IMPRESSION: Borderline heart size. Otherwise no acute cardiopulmonary disease seen.. <Electronically signed by Edmund Verdugo > 01/31/20 [id number]
[2020-01-31] MEDS ORDERED: CEFD1CAP8 PO (17:32)
[2020-01-31] MEDS ORDERED: HALO5TA PO (17:32)
--- NOTE | 2020-01-31 19:27 | ECGEPIP ---
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
[2020-01-31] MEDS ORDERED: haloperidoL 5 MG TAB PO ONE (20:45)
[2020-01-31] MEDS ORDERED: AMANTADINE 100MG TABLET PO ONE (20:45)
[2020-01-31] MEDS ORDERED: BENZTROPINE 1 MG TAB PO ONE (20:45)
[2020-01-31] MEDS ORDERED: PRAZOSIN 1 MG CAP PO ONE (21:00)
[2020-02-01] MEDS: BENZTROPINE 1 MG TAB PO SCH ×2 (08:46→21:00)
[2020-02-01] MEDS: VITAMIN D 1,000 INTERNATIONAL UNITS TABLET PO SCH (08:47)
[2020-02-01] MEDS: haloperidoL 5 MG TAB PO SCH ×2 (08:47→21:00)
[2020-02-01] MEDS: FERROUS SULFATE 325MG TAB PO SCH (08:47)
[2020-02-01] MEDS ORDERED: DOCUSATE SODIUM 100MG CAPSULE PO ONE (09:00)
[2020-02-01] MEDS ORDERED: FOLIC ACID 1 MG TAB PO ONE (09:00)
[2020-02-01] MEDS ORDERED: LORazepam 2 MG TAB PO STA (10:51)
[2020-02-01] MEDS ORDERED: AMANTADINE 100MG TABLET PO ONE (21:00)
[2020-02-01] MEDS: PRAZOSIN 1 MG CAP PO SCH (21:00)
[2020-02-01] MEDS ORDERED: LORazepam 2 MG/ML VIAL IM ONE (21:15)
[2020-02-01] MEDS ORDERED: HALOPERIDOL 5MG/ML VIAL (J1630 PER 1) IM ONE (21:15)
[2020-02-01] MEDS ORDERED: LORazepam 2 MG/ML VIAL As Ordered ONE (21:16)
[2020-02-02] MEDS: FERROUS SULFATE 325MG TAB PO SCH (08:56)
[2020-02-02] MEDS: BENZTROPINE 1 MG TAB PO SCH ×2 (08:56→19:33)
[2020-02-02] MEDS: haloperidoL 5 MG TAB PO SCH (08:56)
[2020-02-02] MEDS: VITAMIN D 1,000 INTERNATIONAL UNITS TABLET PO SCH (08:56)
[2020-02-02] MEDS ORDERED: diphenhydrAMINE 50MG/ML VIAL (J1200) IM ONE (10:00)
[2020-02-02] MEDS ORDERED: LORazepam 2 MG/ML VIAL IM ONE (10:00)
[2020-02-02] MEDS ORDERED: HALOPERIDOL 5MG/ML VIAL (J1630 PER 1) IM ONE (10:00)
[2020-02-02] MEDS: QUEtiapine FUMARATE 200 MG TAB PO SCH ×2 (15:16→19:32)
[2020-02-02] MEDS: PRAZOSIN 1 MG CAP PO SCH (19:33)
[2020-02-03] MEDS: VITAMIN D 1,000 INTERNATIONAL UNITS TABLET PO SCH (08:43)
[2020-02-03] MEDS: QUEtiapine FUMARATE 200 MG TAB PO SCH (08:43)
[2020-02-03] MEDS: FERROUS SULFATE 325MG TAB PO SCH (08:43)
[2020-02-03] MEDS: BENZTROPINE 1 MG TAB PO SCH ×2 (08:44→21:46)
[2020-02-03] MEDS ORDERED: HALOPERIDOL 5MG/ML VIAL (J1630 PER 1) IM STA (10:44)
[2020-02-03] MEDS ORDERED: LORazepam 2 MG/ML VIAL IM ONE (14:30)
[2020-02-03] MEDS ORDERED: OLANZapine INTRAMUSCULAR 10MG VIAL IM ONE (14:30)
[2020-02-03] MEDS ORDERED: OLANZapine ORAL DISINTEGRATING TAB 5MG PO PRN (17:45)
[2020-02-03 19:43] VITALS: BP 131/72
[2020-02-03] MEDS: AMANTADINE 100MG TABLET PO SCH (21:00)
[2020-02-03] MEDS: PRAZOSIN 1 MG CAP PO SCH (21:46)
[2020-02-03] MEDS: haloperidoL 5 MG TAB PO SCH (21:47)
[2020-02-03] MEDS: MAALOX 30 ML SUSP *UDC PO PRN (23:35)
--- NOTE | 2020-02-04 01:53 | IPNPDOC ---
Date Seen The patient was seen on 02/04/20. Progress Note RN called due to c/o chest pain without sob, fever, cough. DDX: GERD, PE, musculoskeletal, pleurisy, pericarditis,PUD, esophagitis, gastritis. plan: stat EKG, card percy, CT angio chest. Empiric GI cocktail, PPI. VS, I&O, 24H, Fishbone Vital Signs/I&O Vital Signs Date Time Temp Pulse Resp B/P (MAP) Pulse Ox O2 Delivery O2 Flow Rate FiO2 02/03/20 21:46 131/72 02/03/20 19:43 97.9 94 16 98 Room Air GEMMA CASON MD Feb 04, 2020 01:53
[2020-02-04] MEDS ORDERED: GI COCKTAIL 50ML BTL(HYOSCYAMINE/MAALOX/LIDOCAINE VISCOUS)(1:3:1) PO ONE (02:00)
[2020-02-04] MEDS ORDERED: PANTOPRAZOLE 40MG TAB (PROTONIX) PO ONE (02:00)
[2020-02-04] MEDS ORDERED: ISOVUE-370 76% 100ML VIAL As Ordered ONE (02:03)
[2020-02-04 03:07] LABS: BLOOD UREA NITROGEN 12 MG/DL (7-18); CARBON DIOXIDE LEVEL 29 MEQ/L (21-32); CHLORIDE LEVEL 105 MEQ/L (98-107); CK-MB VALUE MASS 3.2 NG/ML (<3.6); CPK CREATINE PHOSPHOKINASE 692 U/L (26-192); CREATININE FOR GFR 0.65 MG/DL (0.55-1.30); GLOMERULAR FILTRATION RATE > 60.0 (>60); GLUCOSE, FASTING 95 MG/DL (70-100); MB/CK RELATIVE INDEX 0.46 (< OR =4); SODIUM LEVEL 138 MEQ/L (136-145); TROPONIN I < 0.02 NG/ML (< 0.10)
--- NOTE | 2020-02-04 03:28 | REPVR ---
PROCEDURE INFORMATION: Exam: CT Angiography Chest with Contrast Exam date and time: 02/04/20 (2:16am) Age: 29 years old Clinical indication: Chest pain, tachycardia TECHNIQUE: Imaging protocol: Computed tomographic angiography of the chest with intravenous contrast. 3D rendering (Not supervised by radiologist): MIP and/or 3D reconstructed images were created by the technologist. Radiation optimization: All CT scans at this facility use at least one of these dose optimization techniques: automated exposure control; mA and/or kV adjustment per patient size (includes targeted exams where dose is matched to clinical indication); or iterative reconstruction. Contrast material: Isovue 370 Contrast volume: 75 ml Contrast route: IV COMPARISON: Chest films of 01/31/20 FINDINGS: Pulmonary arteries: Normal. No pulmonary emboli. Aorta: Unremarkable. No aortic aneurysm. No aortic dissection. Lungs: Bilateral hazy ground-glass opacities, most notably in the mid and lower lung zones. No consolidation. No masses. Pleural space: Unremarkable. No pneumothorax. No pleural effusions. Heart: Cardiomegaly. No pericardial effusion. Lymph nodes: Unremarkable. No enlarged lymph nodes. Bones/joints: Unremarkable. No acute fracture. Soft tissues: Unremarkable. IMPRESSION: Bilateral hazy ground-glass opacities, predominantly in the mid and lower lung zones. No consolidation. No pleural effusions. Possible nonspecific pneumonitis. Cannot exclude Covid infection, eg. Needs clinical and laboratory correlation. No filling defects suspicious for pulmonary emboli are seen. There is no CT evidence of aortic dissection nor leakage. No aortic aneurysm is appreciated. Electronically signed by: Nivia Jimenez On 02/04/2020 03:27:22 AM
[2020-02-04 06:10] VITALS: BP 112/70
[2020-02-04] MEDS: NICOTINE 21MG/24HR 1 EA TRANSDERMAL TD SCH (09:00)
[2020-02-04] MEDS: VITAMIN D 1,000 INTERNATIONAL UNITS TABLET PO SCH (09:06)
[2020-02-04] MEDS: FERROUS SULFATE 325MG TAB PO SCH (09:06)
[2020-02-04] MEDS: haloperidoL 5 MG TAB PO SCH ×2 (09:07→20:15)
[2020-02-04] MEDS: BENZTROPINE 1 MG TAB PO SCH ×2 (09:07→20:15)
[2020-02-04] MEDS: DOCUSATE SODIUM 100MG CAPSULE PO SCH (09:07)
[2020-02-04] MEDS: FOLIC ACID 1 MG TAB PO SCH (09:07)
[2020-02-04] MEDS ORDERED: HALOPERIDOL 5MG/ML VIAL (J1630 PER 1) IM STA (11:19)
[2020-02-04] MEDS ORDERED: LORazepam 2 MG/ML VIAL IM STA (11:19)
[2020-02-04] MEDS ORDERED: diphenhydrAMINE 50MG/ML VIAL (J1200) IM STA ×2 (11:19→13:32)
[2020-02-04] MEDS ORDERED: HALOPERIDOL 5MG/ML VIAL (J1630 PER 1) IM ONE (13:45)
[2020-02-04] MEDS ORDERED: LORazepam 2 MG/ML VIAL IM ONE (13:45)
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
[2020-02-04] MEDS: DIVALPROEX 250 MG TAB PO SCH ×2 (16:00→20:17)
[2020-02-04] MEDS: AMANTADINE 100MG TABLET PO SCH (20:15)
[2020-02-04] MEDS: PRAZOSIN 1 MG CAP PO SCH (20:16)
[2020-02-05 06:32] VITALS: BP 156/74
--- NOTE | 2020-02-05 07:17 | HPEPDOC ---
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 Per medical records and ER intake notes she was brought to the ER after collapsing while at the [facility]. She reported having SI to the Attending Physician and was brought to the ER for evaluation. Based on medical records she was agitated, yelling and was aggressive towards staff while in the ER. She was admitted to [facility] likely bc of SI and for treatment of Schizoaffective disorder, bipolar type. This morning the patient was calm, denied having any pain shortness of breath or acute c/o. She reported being recently treated for bronchitis. ROS:neg except as listed in HPI PAST MEDICAL /SURGICAL HISTORY: Pseudoseizures Asthma Schizoaffective Disorder Bipolar Disorder Depression SOCIAL HISTORY: + tobacco - Alcohol + THC FAMILY HISTORY: n/a ALLERGIES: Please see below. HOME MEDICATIONS: Please see below. PHYSICAL EXAMINATION: Vital Signs Date Time Temp Pulse Resp B/P (MAP) Pulse Ox O2 Delivery O2 Flow Rate FiO2 02/05/20 06:32 98.4 104 18 156/74 (101) 02/04/20 20:16 133/73 GENERAL APPEARANCE: NAD HEENT: EOMI CARDIOVASCULAR: RRR/NMRG LUNGS: CTAB on RA MUSCULOSKELETAL: NCAT /KEELEY x 4 NEUROLOGICAL: speech not dysarthric PSYCHIATRIC: A&O X3 / able to understand and follow all commands Current Medications Medications (Trade) Dose Ordered Sig/Gordo Route PRN Reason Start Time Stop Time Status Last Admin Dose Admin Al Hydrox/Mg Hydrox/Simethicone (Mylanta) 30 ml Q4HP PRN PO HEARTBURN/INDIGESTION 02/03/20 17:45 02/03/20 23:35 30 ML Amantadine HCl (Symmetrel) 100 mg QHS PO 02/03/20 21:00 02/04/20 20:15 100 MG Benztropine Mesylate (Cogentin) 1 mg BID PO 02/03/20 21:00 02/04/20 20:15 1 MG Docusate Sodium (Colace) 100 mg DAILY PO 02/04/20 09:00 02/04/20 09:07 100 MG Ferrous Sulfate (Ferrous Sulfate) 325 mg DAILY PO 02/04/20 09:00 02/04/20 09:06 325 MG Folic Acid (Folic Acid) 1 mg DAILY PO 02/04/20 09:00 02/04/20 09:07 1 MG Haloperidol (Haldol) 15 mg BID PO 02/03/20 21:00 02/04/20 20:15 15 MG Olanzapine (ZyPREXA ZYDIS) 10 mg Q4HP PRN PO AGITATION 02/03/20 17:45 02/04/20 00:28 10 MG Prazosin HCl (Minipress) 1 mg QHS PO 02/03/20 21:00 02/04/20 20:16 1 MG Vitamin D (Vitamin D) 1,000 units DAILY PO 02/04/20 09:00 02/04/20 09:06 1,000 UNITS LABORATORY DATA: Laboratory Tests 02/04/20 02:31 IMAGING: CT head Chest xray "IMPRESSION: Bilateral hazy ground-glass opacities, predominantly in the mid and lower lung zones. No consolidation. No pleural effusions. Possible nonspecific pneumonitis. Cannot exclude Covid infection, eg. Needs clinical and laboratory correlation. No filling defects suspicious for pulmonary emboli are seen. There is no CT evidence of aortic dissection nor leakage. ASSESSMENT: is a 29 yr old w a hx of Pseudoseizures, Asthma, Schizoaffective Disorder, Bipolar Disorder and Depression who was brought to the ER for evaluation bc of SI; she was admitted for management of Schizoaffective disorder, bipolar type. We were consulted to co-manage her medical problems. . PLAN: 1. Schizoaffective Disorder w Bipolar Plan: per Primary team 2. Bilateral Ground Glass Opacities Asymptomatic Plan: consider referral to Pulm on an out pt basis for repeat CT and to discuss if she needs a work up to determine the cause of the ground glass opacities (ie auto-immune work-up) 3. Asthma Stable Plan: albuterol PRN 4. Tobacco Abuse Declined nicotine patch & not interested in smoking cessation Plan: f/u w PCP to discuss cessation 5. Elevated CPK Likely benign CPK levels tend to be elevated above the normogram in individuals of descent Plan: encourage PO fluids / f/u repeat CK Thank you for consulting us. We will sign off for now. Please do not hesitate to reconsult us as needed. Vital Signs Vital Signs Date Time Temp Pulse Resp B/P (MAP) Pulse Ox O2 Delivery O2 Flow Rate FiO2 02/05/20 06:32 98.4 104 18 156/74 (101) 02/04/20 06:10 99 Room Air Home Medications Scheduled Amantadine HCl (Amantadine) 100 Mg Tablet, 100 MG PO QHS Benztropine Mesylate (Benztropine Mesylate) 1 Mg Tablet, 1 MG PO BID Cefdinir (Cefdinir) 300 Mg Capsule, 300 MG PO BID Cholecalciferol (Vitamin D3) (Vitamin D3) 1,000 Unit Tablet, 1,000 UNIT PO DAILY Docusate Sodium (Colace) 100 Mg Cap, 100 MG PO DAILY Ferrous Sulfate (Ferrous Sulfate) 325 Mg Tab, 325 MG PO DAILY Folic Acid (Folic Acid) 1 Mg Tab, 1 MG PO DAILY Haloperidol (Haloperidol) 5 Mg Tablet, 15 MG PO BID Haloperidol Decanoate (Haloperidol Decanoate) 100 Mg/Ml Soln, 100 MG IM QMONTH for PSYCHOSIS Prazosin Hcl (Prazosin HCl) 1 Mg Capsule, 1 MG PO QHS Scheduled PRN Trazodone HCl (Trazodone HCl) 50 Mg Tablet, 50 MG PO QHS PRN for INSOMNIA Allergies Coded Allergies: Penicillins (Unverified Allergy, Unknown, 09/02/19) paliperidone (Unverified Adverse Reaction, Mild, DROOLING, 01/31/20) A-FIB/CHADSVASC A-FIB History Current/History of A-Fib/PAF?: No Current PO Anticoag Therapy: No MARITZA CORLEY MD Feb 05, 2020 07:17
[2020-02-05] MEDS ORDERED: ALBUTEROL 90 MCG/ACT 8GM HFA INHALER INH PRN (07:30)
[2020-02-05] MEDS: BENZTROPINE 1 MG TAB PO SCH ×4 (09:00→20:05)
[2020-02-05] MEDS: DIVALPROEX 250 MG TAB PO SCH ×3 (09:00→20:05)
[2020-02-05] MEDS: NICOTINE 21MG/24HR 1 EA TRANSDERMAL TD SCH (09:00)
[2020-02-05] MEDS: FERROUS SULFATE 325MG TAB PO SCH ×3 (09:00→10:20)
[2020-02-05] MEDS: FOLIC ACID 1 MG TAB PO SCH (10:14)
[2020-02-05] MEDS: VITAMIN D 1,000 INTERNATIONAL UNITS TABLET PO SCH (10:15)
[2020-02-05] MEDS: DOCUSATE SODIUM 100MG CAPSULE PO SCH (10:15)
[2020-02-05] MEDS: haloperidoL 5 MG TAB PO SCH ×2 (10:16→20:05)
[2020-02-05] MEDS ORDERED: diphenhydrAMINE 50MG CAP PO ONE (14:30)
[2020-02-05] MEDS ORDERED: chlorproMAZINE 25 MG TABLET PO ONE (14:30)
[2020-02-05] MEDS ORDERED: LORazepam 2 MG TAB PO ONE (14:30)
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
[2020-02-05 18:00] VITALS: BP 130/79
[2020-02-05] MEDS: AMANTADINE 100MG TABLET PO SCH ×2 (20:04→20:06)
[2020-02-05] MEDS: PRAZOSIN 1 MG CAP PO SCH (20:05)
[2020-02-05] MEDS: traZODone 50 MG TAB PO PRN (22:08)
[2020-02-05] MEDS: ACETAMINOPHEN TAB 650MG DOSE (2X325MG) PO PRN (23:33)
[2020-02-06] VITALS (10 sets, daily range): BP systolic 122–147; BP diastolic 66–84
[2020-02-06] MEDS ORDERED: QUEtiapine FUMARATE 50 MG TAB PO ONE (01:30)
[2020-02-06] MEDS: BENZTROPINE 1 MG TAB PO SCH ×2 (09:00→20:03)
[2020-02-06] MEDS: NICOTINE 21MG/24HR 1 EA TRANSDERMAL TD SCH (09:00)
[2020-02-06] MEDS: DIVALPROEX 250 MG TAB PO SCH ×3 (09:00→20:04)
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
[2020-02-06] MEDS: VITAMIN D 1,000 INTERNATIONAL UNITS TABLET PO SCH (11:14)
[2020-02-06] MEDS: ACETAMINOPHEN TAB 650MG DOSE (2X325MG) PO PRN (11:14)
[2020-02-06] MEDS: DOCUSATE SODIUM 100MG CAPSULE PO SCH (11:15)
[2020-02-06] MEDS: haloperidoL 5 MG TAB PO SCH ×2 (11:15→20:03)
[2020-02-06] MEDS: FOLIC ACID 1 MG TAB PO SCH (11:15)
[2020-02-06] MEDS: FERROUS SULFATE 325MG TAB PO SCH (11:15)
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
[2020-02-06] MEDS ORDERED: LORazepam 2 MG/ML VIAL IM STA (12:01)
[2020-02-06] MEDS ORDERED: HALOPERIDOL 5MG/ML VIAL (J1630 PER 1) IM STA (12:01)
[2020-02-06] MEDS ORDERED: diphenhydrAMINE 50MG/ML VIAL (J1200) IM STA (12:01)
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
[2020-02-06] MEDS: PRAZOSIN 1 MG CAP PO SCH (20:03)
[2020-02-06] MEDS: traZODone 50 MG TAB PO PRN (20:03)
[2020-02-06] MEDS: AMANTADINE 100MG TABLET PO SCH (20:03)
[2020-02-07 00:56] VITALS: BP 140/82
[2020-02-07] MEDS ORDERED: LORazepam 1 MG TAB PO ONE (01:00)
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
[2020-02-07 06:37] VITALS: BP 126/64
[2020-02-07] MEDS: NICOTINE 21MG/24HR 1 EA TRANSDERMAL TD SCH (09:00)
[2020-02-07] MEDS ORDERED: DOCUSATE SODIUM 100MG CAPSULE PO SCH (09:00)
[2020-02-07] MEDS: DIVALPROEX 250 MG TAB PO SCH ×3 (09:00→20:07)
[2020-02-07] MEDS: FOLIC ACID 1 MG TAB PO SCH (09:23)
[2020-02-07] MEDS: haloperidoL 5 MG TAB PO SCH (09:24)
[2020-02-07] MEDS: VITAMIN D 1,000 INTERNATIONAL UNITS TABLET PO SCH (09:24)
[2020-02-07] MEDS: BENZTROPINE 1 MG TAB PO SCH ×2 (09:24→20:05)
[2020-02-07] MEDS: FERROUS SULFATE 325MG TAB PO SCH (09:24)
[2020-02-07] MEDS: DOCUSATE SODIUM 100MG CAPSULE PO SCH (09:24)
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
[2020-02-07] MEDS ORDERED: PILL CUTTER 1 EACH XX PRN (10:30)
[2020-02-07] MEDS: cloZAPine 25 MG TAB (S0136) PO SCH ×2 (10:52→20:05)
[2020-02-07] MEDS: chlorproMAZINE 25 MG TABLET PO SCH ×2 (10:52→20:05)
[2020-02-07] MEDS: PRAZOSIN 1 MG CAP PO SCH (20:05)
[2020-02-07] MEDS: AMANTADINE 100MG TABLET PO SCH (20:05)
[2020-02-07] MEDS: ACETAMINOPHEN TAB 650MG DOSE (2X325MG) PO PRN (23:34)
[2020-02-08] MEDS: traZODone 50 MG TAB PO PRN ×2 (00:27→21:43)
[2020-02-08] MEDS: MAALOX 30 ML SUSP *UDC PO PRN (05:52)
[2020-02-08] MEDS: ACETAMINOPHEN TAB 650MG DOSE (2X325MG) PO PRN ×2 (05:52→14:48)
[2020-02-08 06:30] VITALS: BP 143/77
[2020-02-08] MEDS: NICOTINE 21MG/24HR 1 EA TRANSDERMAL TD SCH (09:00)
[2020-02-08] MEDS: FERROUS SULFATE 325MG TAB PO SCH (09:24)
[2020-02-08] MEDS: DOCUSATE SODIUM 100MG CAPSULE PO SCH (09:24)
[2020-02-08] MEDS: chlorproMAZINE 25 MG TABLET PO SCH ×3 (09:25→21:10)
[2020-02-08] MEDS: FOLIC ACID 1 MG TAB PO SCH (09:25)
[2020-02-08] MEDS: BENZTROPINE 1 MG TAB PO SCH ×2 (09:25→21:10)
[2020-02-08] MEDS: DIVALPROEX 250 MG TAB PO SCH ×4 (09:25→21:00)
[2020-02-08] MEDS: VITAMIN D 1,000 INTERNATIONAL UNITS TABLET PO SCH (09:25)
--- NOTE | 2020-02-08 12:51 | ECGEPIP ---
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
[2020-02-08 16:00] VITALS: BP 149/74
[2020-02-08] MEDS: AMANTADINE 100MG TABLET PO SCH (21:10)
[2020-02-08] MEDS: PRAZOSIN 1 MG CAP PO SCH (21:10)
[2020-02-08] MEDS ORDERED: OLANZapine ORAL DISINTEGRATING TAB 5MG PO ONE (23:15)
[2020-02-09 00:20] VITALS: BP 151/92
[2020-02-09 00:25] VITALS: BP 138/94
[2020-02-09] MEDS ORDERED: OLANZapine ORAL DISINTEGRATING TAB 5MG PO ONE ×2 (00:30→23:15)
[2020-02-09 06:53] VITALS: BP 126/73
[2020-02-09] MEDS: NICOTINE 21MG/24HR 1 EA TRANSDERMAL TD SCH (09:00)
[2020-02-09] MEDS: FERROUS SULFATE 325MG TAB PO SCH (09:44)
[2020-02-09] MEDS: VITAMIN D 1,000 INTERNATIONAL UNITS TABLET PO SCH (09:44)
[2020-02-09] MEDS: BENZTROPINE 1 MG TAB PO SCH ×2 (09:45→20:51)
[2020-02-09] MEDS: FOLIC ACID 1 MG TAB PO SCH (09:45)
[2020-02-09] MEDS: DOCUSATE SODIUM 100MG CAPSULE PO SCH (09:45)
[2020-02-09] MEDS: chlorproMAZINE 25 MG TABLET PO SCH ×2 (11:21→20:51)
[2020-02-09] MEDS: DIVALPROEX 250 MG TAB PO SCH ×3 (11:23→20:51)
[2020-02-09 18:59] VITALS: BP 141/79
[2020-02-09] MEDS: AMANTADINE 100MG TABLET PO SCH (20:50)
[2020-02-09] MEDS: PRAZOSIN 1 MG CAP PO SCH (20:50)
[2020-02-09] MEDS: traZODone 100 MG TAB PO PRN (21:54)
[2020-02-10] MEDS ORDERED: LORazepam 1 MG TAB PO ONE (01:00)
[2020-02-10 06:29] VITALS: BP 136/82
[2020-02-10] MEDS: NICOTINE 21MG/24HR 1 EA TRANSDERMAL TD SCH (09:00)
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
[2020-02-10] MEDS: chlorproMAZINE 25 MG TABLET PO SCH (09:48)
[2020-02-10] MEDS: VITAMIN D 1,000 INTERNATIONAL UNITS TABLET PO SCH (09:49)
[2020-02-10] MEDS: DOCUSATE SODIUM 100MG CAPSULE PO SCH (09:49)
[2020-02-10] MEDS: FOLIC ACID 1 MG TAB PO SCH (09:49)
[2020-02-10] MEDS: DIVALPROEX 250 MG TAB PO SCH ×3 (09:49→21:09)
[2020-02-10] MEDS: BENZTROPINE 1 MG TAB PO SCH ×2 (09:49→21:09)
[2020-02-10] MEDS: FERROUS SULFATE 325MG TAB PO SCH (09:49)
--- NOTE | 2020-02-10 13:25 | MHIPN ---
DATE: 02/08/2020 VITAL SIGNS: Blood pressure 143/77, pulse 102, temperature 98.9. CHIEF COMPLAINT: Says feels okay. SUBJECTIVE: She is seen for follow-up. She is seen in the presence of staff, she is on one-on-one observation. She has been agitated the last couple of days. She suggests that she feels okay, but she had a hard time with sleep last night. Says has a difficult time with Depakote, and that she had trouble in the past, felt stiffness of her jaw, and she is not sure when that happened. MENTAL STATUS EXAM: She is neat. She is cooperative, though somewhat guarded. Currently no agitation. Affect she did some of the activity. Denies any suicidal thoughts or intents. No homicidal ideation or intents. She does not appear to be internally preoccupied. Judgment and insight remain compromised. ASSESSMENT: Schizoaffective disorder. Continue current care, including observation on one-on-one status as she is quite labile both in emotion and conduct. I would suggest that she consider using the Depakote as well as the other medicines. She is on Thorazine as well. The rationale for doing so is discussed. Further recommendations will be made depending on the clinical picture. She is also seen for confirmatory consultation for 2 PC evaluation. RICK
[2020-02-10 16:51] VITALS: BP 134/69
[2020-02-10] MEDS: MOM 30ML SUSPENSION UDC PO PRN (16:57)
[2020-02-10] MEDS: AMANTADINE 100MG TABLET PO SCH (21:09)
[2020-02-10] MEDS: PRAZOSIN 1 MG CAP PO SCH (21:09)
[2020-02-10] MEDS: traZODone 100 MG TAB PO PRN (21:10)
[2020-02-10] MEDS: ChlorproMAZINE 100 MG TABLET PO SCH (21:10)
[2020-02-11] MEDS: ACETAMINOPHEN TAB 650MG DOSE (2X325MG) PO PRN ×2 (03:50→15:33)
[2020-02-11 06:07] VITALS: BP 134/72
[2020-02-11] MEDS: NICOTINE 21MG/24HR 1 EA TRANSDERMAL TD SCH (09:00)
[2020-02-11] MEDS: VITAMIN D 1,000 INTERNATIONAL UNITS TABLET PO SCH (09:03)
[2020-02-11] MEDS: BENZTROPINE 1 MG TAB PO SCH ×2 (09:05→21:55)
[2020-02-11] MEDS: DOCUSATE SODIUM 100MG CAPSULE PO SCH (09:05)
[2020-02-11] MEDS: FERROUS SULFATE 325MG TAB PO SCH (09:05)
[2020-02-11] MEDS: DIVALPROEX 250 MG TAB PO SCH (09:05)
[2020-02-11] MEDS: FOLIC ACID 1 MG TAB PO SCH (09:05)
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
--- NOTE | 2020-02-11 10:13 | MHIPN ---
DATE: 02/09/2020 VITAL SIGNS: Blood pressure 126/73, pulse 109, temperature 98.4 CHIEF COMPLAINT: Feels a bit tired. SUBJECTIVE: Seen for follow up. She is seen in the presence of staff, including the sitter. The patient says has been okay, but says felt tired, felt wound up last night when she was given medications, this helped settle her, says got a few hours of sleep, but feels a bit tired this morning. She has remained in reasonable behavioral control, but says felt a bit irritable at times. MENTAL STATUS EXAMINATION: She is lying in bed. She is cooperative, was seen earlier walking the corridors. There is no agitation at present. No psychomotor retardation. She is coherent. She is mildly tired. Denies any thoughts of harming herself or anyone else. No delusional ideations elicited. Cognition is grossly intact. Judgment and insight remains compromised. ASSESSMENT: Schizoaffective disorder. PLAN: Continue current care and observations and she required Zyprexa yesterday in the evening when she was sort of agitated. It tended to help, this is in addition to trazodone that she had been given and the Depakote. Has had questions regarding the Depakote, refused it last night. Suggest that she take it, we discussed the rationale for doing so. Further recommendations to be made depending on the clinical picture. RICK
[2020-02-11 16:20] VITALS: BP 117/60
[2020-02-11] MEDS: AMANTADINE 100MG TABLET PO SCH (20:25)
[2020-02-11] MEDS: ChlorproMAZINE 100 MG TABLET PO SCH (20:25)
[2020-02-11] MEDS: DIVALPROEX 500 MG TAB PO SCH (20:26)
[2020-02-11] MEDS: PRAZOSIN 1 MG CAP PO SCH (20:27)
[2020-02-12 06:31] VITALS: BP 122/66
[2020-02-12] MEDS: BENZTROPINE 1 MG TAB PO SCH ×2 (08:40→20:21)
[2020-02-12] MEDS: DOCUSATE SODIUM 100MG CAPSULE PO SCH (08:41)
[2020-02-12] MEDS: FOLIC ACID 1 MG TAB PO SCH (08:41)
[2020-02-12] MEDS: FERROUS SULFATE 325MG TAB PO SCH (08:41)
[2020-02-12] MEDS: NICOTINE 21MG/24HR 1 EA TRANSDERMAL TD SCH (08:41)
[2020-02-12] MEDS: VITAMIN D 1,000 INTERNATIONAL UNITS TABLET PO SCH (08:41)
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
[2020-02-12 16:00] VITALS: BP 121/67
[2020-02-12] MEDS: AMANTADINE 100MG TABLET PO SCH (20:21)
[2020-02-12] MEDS: ChlorproMAZINE 100 MG TABLET PO SCH (20:21)
[2020-02-12] MEDS: PRAZOSIN 1 MG CAP PO SCH (20:21)
[2020-02-12] MEDS: DIVALPROEX 500 MG TAB PO SCH (20:22)
[2020-02-12] MEDS: traZODone 100 MG TAB PO PRN (22:14)
[2020-02-13 06:44] VITALS: BP 150/88
[2020-02-13] MEDS: FERROUS SULFATE 325MG TAB PO SCH (08:59)
[2020-02-13] MEDS: FOLIC ACID 1 MG TAB PO SCH (08:59)
[2020-02-13] MEDS: BENZTROPINE 1 MG TAB PO SCH ×2 (08:59→20:00)
[2020-02-13] MEDS: VITAMIN D 1,000 INTERNATIONAL UNITS TABLET PO SCH (08:59)
[2020-02-13] MEDS: DOCUSATE SODIUM 100MG CAPSULE PO SCH (08:59)
[2020-02-13] MEDS: NICOTINE 21MG/24HR 1 EA TRANSDERMAL TD SCH (09:00)
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
[2020-02-13] MEDS ORDERED: SODIUM CHLORIDE 0.9% NASAL GEL 15GM (AYR) PRN (14:45)
[2020-02-13 17:48] VITALS: BP 142/69
[2020-02-13 20:00] VITALS: BP 130/90
[2020-02-13] MEDS: PRAZOSIN 1 MG CAP PO SCH (20:00)
[2020-02-13] MEDS: DIVALPROEX 500 MG TAB PO SCH (20:01)
[2020-02-13] MEDS: ChlorproMAZINE 100 MG TABLET PO SCH (20:01)
[2020-02-13] MEDS: AMANTADINE 100MG TABLET PO SCH (20:01)
[2020-02-13] MEDS: traZODone 100 MG TAB PO PRN (21:06)
[2020-02-14] MEDS ORDERED: LORazepam 0.5 MG TAB PO ONE
[2020-02-14 06:53] VITALS: BP 117/63
[2020-02-14] MEDS: NICOTINE 21MG/24HR 1 EA TRANSDERMAL TD SCH (09:00)
--- NOTE | 2020-02-14 09:53 | MHIPNPDOC ---
[facility] Progress Note Progress Note DATE OF SERVICE: 02/14/20 HISTORY: The patient is met with today, she is still on a one-to-one sitter and generally reports that things are "fine", she shows an unusual affect at times and reports no problems from her Thorazine, she had some difficulty sleeping the previous evening but otherwise has no other complaints. VITAL SIGNS: See below. NEW TEST RESULTS: Valproic acid within therapeutic range CURRENT MEDICATIONS: See below. MENTAL STATUS EXAMINATION: General: Fair hygiene Speech: Fluid Thought processes: Linear Thought content: Some remorse Abstract reasoning, and computation: Impaired Description of associations: Impaired Description of abnormal or psychotic thoughts: Denies any suicidal or homicidal ideation denies auditory or visual hallucinations at this time Judgment: Poor Insight: Poor Orientation: Appears somewhat slowed Recent and remote memory: some difficulties Attention span and concentration: [Intact] Fund of knowledge: Untested Mood: "Hi" Affect: Flat with little reactivity DIAGNOSES: 1. Schizoaffective disorder bipolar type. 2. Cannabis use disorder. ASSESSMENT: We'll continue to increase dose of Thorazine to see if this might be more helpful MANAGEMENT PLAN: Increase Thorazine to 300 mg nightly Depakote 500 mg QHS, Looking at long-term care versus returned CR she makes improvements TIME SPENT: 15 minutes. Vital Signs Vital Signs Date Time Temp Pulse Resp B/P (MAP) Pulse Ox O2 Delivery O2 Flow Rate FiO2 02/14/20 06:53 97.8 114 18 117/63 (81) 99 Room Air Current Medications Current Medications Medications (Trade) Dose Ordered Sig/Gordo Route PRN Reason Start Time Stop Time Status Last Admin Dose Admin Acetaminophen (Tylenol Tab) 650 mg Q6HP PRN PO HEADACHE or DISCOMFORT 02/03/20 17:45 02/11/20 15:33 Al Hydrox/Mg Hydrox/Simethicone (Mylanta) 30 ml Q4HP PRN PO HEARTBURN/INDIGESTION 02/03/20 17:45 02/08/20 05:52 Albuterol Sulfate (Proventil, Ventolin Hfa) 2 puff Q6HP PRN INH SHORTNESS OF BREATH 02/05/20 07:30 Amantadine HCl (Symmetrel) 100 mg QHS PO 02/03/20 21:00 02/13/20 20:01 Benztropine Mesylate (Cogentin) 1 mg BID PO 02/01/20 09:00 02/03/20 17:50 DC 02/02/20 19:33 Benztropine Mesylate (Cogentin) 1 mg BID PO 02/03/20 21:00 02/13/20 20:00 Chlorpromazine HCl (Thorazine) 100 mg BID PO 02/07/20 09:00 02/10/20 11:02 DC 02/10/20 09:48 Chlorpromazine HCl (Thorazine) 200 mg QHS PO 02/10/20 21:00 02/13/20 20:01 Clozapine (Clozaril) 12.5 mg BID PO 02/07/20 09:00 02/07/20 21:00 DC 02/07/20 20:05 Diphenhydramine HCl (Benadryl) 50 mg STAT STAT IM 02/04/20 11:19 02/04/20 11:22 DC 02/04/20 11:34 Diphenhydramine HCl (Benadryl) 50 mg STAT STAT IM 02/04/20 13:32 02/04/20 13:38 DC 02/04/20 14:11 Diphenhydramine HCl (Benadryl) 100 mg STAT STAT IM 02/06/20 12:01 02/06/20 12:06 DC 02/06/20 12:41 Divalproex Sodium (Depakote) 250 mg TID PO 02/04/20 16:00 02/11/20 13:39 DC 02/11/20 09:05 Divalproex Sodium (Depakote) 500 mg QHS PO 02/11/20 21:00 02/13/20 20:01 Docusate Sodium (Colace) 100 mg DAILY PO 02/04/20 09:00 02/13/20 08:59 Docusate Sodium (Colace) 100 mg DAILY PO 02/07/20 09:00 02/07/20 10:51 DC Ferrous Sulfate (Ferrous Sulfate) 325 mg DAILY PO 02/01/20 09:00 02/03/20 17:50 DC 02/02/20 08:56 Ferrous Sulfate (Ferrous Sulfate) 325 mg DAILY PO 02/04/20 09:00 02/13/20 08:59 Folic Acid (Folic Acid) 1 mg DAILY PO 02/04/20 09:00 02/13/20 08:59 Haloperidol (Haldol) 5 mg STAT STAT IM 02/03/20 10:44 02/03/20 10:45 DC 02/03/20 10:56 Haloperidol (Haldol) 10 mg BIDP PRN PO AGITATION 02/02/20 09:00 02/02/20 13:26 DC Haloperidol (Haldol) 10 mg STAT STAT IM 02/04/20 11:19 02/04/20 11:22 DC 02/04/20 11:33 Haloperidol (Haldol) 10 mg STAT STAT IM 02/06/20 12:01 02/06/20 12:06 DC 02/06/20 12:39 Haloperidol (Haldol) 10 mg TIDP PRN PO AGITATION 02/02/20 17:00 02/03/20 17:50 DC 02/02/20 15:16 Haloperidol (Haldol) 10 mg TIDP PRN PO ANXIETY/AGITATION 02/05/20 14:30 02/13/20 22:04 Haloperidol (Haldol) 15 mg BID PO 02/01/20 09:00 02/02/20 13:20 DC 02/02/20 08:56 Haloperidol (Haldol) 15 mg BID PO 02/03/20 21:00 02/07/20 10:07 DC 02/07/20 09:24 Home Med (Med Rec Complete!) ASDIRECTED XX 01/31/20 17:45 01/31/20 17:34 DC Lorazepam (Ativan) 2 mg STAT STAT IM 02/04/20 11:19 02/04/20 11:22 DC 02/04/20 11:33 Lorazepam (Ativan) 2 mg STAT STAT IM 02/06/20 12:01 02/06/20 12:06 DC 02/06/20 12:36 Lorazepam (Ativan) 2 mg STAT STAT PO 02/01/20 10:51 02/01/20 10:52 DC 02/01/20 10:59 Magnesium Hydroxide (Milk Of Magnesia) 30 ml DAILYPRN PRN PO CONSTIPATION 02/03/20 17:45 02/10/20 16:57 Nicotine (Nicoderm Cq 21mg) 1 patch DAILY TD 02/04/20 09:00 Olanzapine (ZyPREXA ZYDIS) 10 mg Q4HP PRN PO AGITATION 02/03/20 17:45 11/18/20 14:30 DC 02/04/20 00:28 Prazosin HCl (Minipress) 1 mg QHS PO 02/01/20 21:00 02/03/20 17:50 DC 02/02/20 19:33 Prazosin HCl (Minipress) 1 mg QHS PO 02/03/20 21:00 02/13/20 20:00 Quetiapine Fumarate (SEROquel) 200 mg TID PO 02/02/20 16:00 02/03/20 17:50 DC 02/02/20 19:32 Sodium Chloride ([place] Saline Nasal Gel) 1 dose Q4HP PRN NA NASAL DRYNESS 02/13/20 14:45 Trazodone HCl (Desyrel) 50 mg QHSP PRN PO INSOMNIA 02/03/20 17:45 02/09/20 21:16 DC 02/08/20 21:43 Trazodone HCl (Desyrel) 100 mg QHSP PRN PO INSOMNIA 02/09/20 21:15 02/13/20 21:06 Vitamin D (Vitamin D) 1,000 units DAILY PO 02/01/20 09:00 02/03/20 17:50 DC 02/02/20 08:56 Vitamin D (Vitamin D) 1,000 units DAILY PO 02/04/20 09:00 02/13/20 08:59 Allergies Coded Allergies: Penicillins (Unverified Allergy, Unknown, 09/02/19) paliperidone (Unverified Adverse Reaction, Mild, DROOLING, 01/31/20) CÉSAR MURPHY DO Feb 14, 2020 09:53
[2020-02-14] MEDS: BENZTROPINE 1 MG TAB PO SCH ×2 (09:58→21:38)
[2020-02-14] MEDS: FERROUS SULFATE 325MG TAB PO SCH (09:58)
[2020-02-14] MEDS: VITAMIN D 1,000 INTERNATIONAL UNITS TABLET PO SCH (09:58)
[2020-02-14] MEDS: FOLIC ACID 1 MG TAB PO SCH (09:58)
[2020-02-14] MEDS: DOCUSATE SODIUM 100MG CAPSULE PO SCH (09:59)
[2020-02-14 16:00] VITALS: BP 126/62
[2020-02-14] MEDS ORDERED: ChlorproMAZINE 100 MG TABLET PO SCH (21:00)
[2020-02-14] MEDS: AMANTADINE 100MG TABLET PO SCH (21:38)
[2020-02-14] MEDS: traZODone 100 MG TAB PO PRN (21:39)
[2020-02-14] MEDS: PRAZOSIN 1 MG CAP PO SCH (21:39)
[2020-02-14] MEDS: DIVALPROEX 500 MG TAB PO SCH (21:40)
[2020-02-15 06:45] VITALS: BP 137/61
[2020-02-15 06:49] VITALS: BP 137/61
[2020-02-15] MEDS: NICOTINE 21MG/24HR 1 EA TRANSDERMAL TD SCH (09:00)
[2020-02-15] MEDS: FOLIC ACID 1 MG TAB PO SCH (09:37)
[2020-02-15] MEDS: BENZTROPINE 1 MG TAB PO SCH ×2 (09:37→20:02)
[2020-02-15] MEDS: VITAMIN D 1,000 INTERNATIONAL UNITS TABLET PO SCH (09:37)
[2020-02-15] MEDS: FERROUS SULFATE 325MG TAB PO SCH (09:37)
[2020-02-15] MEDS: DOCUSATE SODIUM 100MG CAPSULE PO SCH (09:37)
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
[2020-02-15 16:15] VITALS: BP 129/98
[2020-02-15] MEDS: RAMELTEON 8 MG TAB (ROZEREM) PO SCH (20:01)
[2020-02-15] MEDS: DIVALPROEX 500 MG TAB PO SCH (20:02)
[2020-02-15] MEDS: AMANTADINE 100MG TABLET PO SCH (20:02)
[2020-02-15] MEDS ORDERED: cloZAPine 25 MG TAB (S0136) PO SCH (21:00)
[2020-02-16 06:17] VITALS: BP 148/78
[2020-02-16] MEDS: DOCUSATE SODIUM 100MG CAPSULE PO SCH (09:20)
[2020-02-16] MEDS: NICOTINE 21MG/24HR 1 EA TRANSDERMAL TD SCH (09:20)
[2020-02-16] MEDS: FERROUS SULFATE 325MG TAB PO SCH (09:21)
[2020-02-16] MEDS: FOLIC ACID 1 MG TAB PO SCH (09:21)
[2020-02-16] MEDS: VITAMIN D 1,000 INTERNATIONAL UNITS TABLET PO SCH (09:21)
[2020-02-16] MEDS: BENZTROPINE 1 MG TAB PO SCH ×2 (09:21→20:40)
--- NOTE | 2020-02-16 12:07 | MHIPNPDOC ---
[facility] Progress Note Progress Note DATE OF SERVICE: 02/16/20 HISTORY: the patient is met with today, she reports she is doing much better she is been without any agitation this entire weekend generally doing well. She reports that she has some mild constipation times but reports the Clozaril's very helpful for her. VITAL SIGNS: See below. NEW TEST RESULTS: None. CURRENT MEDICATIONS: See below. MENTAL STATUS EXAMINATION: General: Fair hygiene Speech: Fluid Thought processes: Linear Thought content: Future orientated Abstract reasoning, and computation: improved Description of associations: improved Description of abnormal or psychotic thoughts: Denies any suicidal or homicidal ideation denies auditory or visual hallucinations at this time Judgment: improved Insight: improved Orientation: Appears somewhat slowed Recent and remote memory: some difficulties Attention span and concentration: [Intact] Fund of knowledge: Untested Mood: "Hi" Affect: more smiling DIAGNOSES: 1. Schizoaffective disorder bipolar type. 2. Cannabis use disorder. ASSESSMENT: will continue clozapine increase, appears making good progress if this is reflective of her progress then she may be able to be discharged to the CR MANAGEMENT PLAN: Increase Clozaril to 25 Milgram's nightly, CBC to be drawn shortly [place] off the one to one no significant problems for close to a week Continue Depakote ER 500 mg nightly Continue Rozerem 8 mg QHS Pursue CR at this time TIME SPENT: 15 minutes. Vital Signs Vital Signs Date Time Temp Pulse Resp B/P (MAP) Pulse Ox O2 Delivery O2 Flow Rate FiO2 02/16/20 06:17 98.5 99 18 148/78 (101) 02/15/20 16:15 98 Room Air Current Medications Current Medications Medications (Trade) Dose Ordered Sig/Gordo Route PRN Reason Start Time Stop Time Status Last Admin Dose Admin Acetaminophen (Tylenol Tab) 650 mg Q6HP PRN PO HEADACHE or DISCOMFORT 02/03/20 17:45 02/11/20 15:33 Al Hydrox/Mg Hydrox/Simethicone (Mylanta) 30 ml Q4HP PRN PO HEARTBURN/INDIGESTION 02/03/20 17:45 02/08/20 05:52 Albuterol Sulfate (Proventil, Ventolin Hfa) 2 puff Q6HP PRN INH SHORTNESS OF BREATH 02/05/20 07:30 Amantadine HCl (Symmetrel) 100 mg QHS PO 02/03/20 21:00 02/15/20 20:02 Benztropine Mesylate (Cogentin) 1 mg BID PO 02/01/20 09:00 02/03/20 17:50 DC 02/02/20 19:33 Benztropine Mesylate (Cogentin) 1 mg BID PO 02/03/20 21:00 02/16/20 09:21 Chlorpromazine HCl (Thorazine) 100 mg BID PO 02/07/20 09:00 02/10/20 11:02 DC 02/10/20 09:48 Chlorpromazine HCl (Thorazine) 200 mg QHS PO 02/10/20 21:00 02/14/20 12:36 DC 02/13/20 20:01 Chlorpromazine HCl (Thorazine) 300 mg QHS PO 02/14/20 21:00 02/15/20 15:08 DC 02/14/20 21:39 Clozapine (Clozaril) 12.5 mg BID PO 02/07/20 09:00 02/07/20 21:00 DC 02/07/20 20:05 Clozapine (Clozaril) 12.5 mg QHS PO 02/15/20 21:00 02/15/20 20:02 Diphenhydramine HCl (Benadryl) 50 mg STAT STAT IM 02/04/20 11:19 02/04/20 11:22 DC 02/04/20 11:34 Diphenhydramine HCl (Benadryl) 50 mg STAT STAT IM 02/04/20 13:32 02/04/20 13:38 DC 02/04/20 14:11 Diphenhydramine HCl (Benadryl) 100 mg STAT STAT IM 02/06/20 12:01 02/06/20 12:06 DC 02/06/20 12:41 Divalproex Sodium (Depakote) 250 mg TID PO 02/04/20 16:00 02/11/20 13:39 DC 02/11/20 09:05 Divalproex Sodium (Depakote) 500 mg QHS PO 02/11/20 21:00 02/15/20 20:02 Docusate Sodium (Colace) 100 mg DAILY PO 02/04/20 09:00 02/16/20 09:20 Docusate Sodium (Colace) 100 mg DAILY PO 02/07/20 09:00 02/07/20 10:51 DC Ferrous Sulfate (Ferrous Sulfate) 325 mg DAILY PO 02/01/20 09:00 02/03/20 17:50 DC 02/02/20 08:56 Ferrous Sulfate (Ferrous Sulfate) 325 mg DAILY PO 02/04/20 09:00 02/16/20 09:21 Folic Acid (Folic Acid) 1 mg DAILY PO 02/04/20 09:00 02/16/20 09:21 Haloperidol (Haldol) 5 mg STAT STAT IM 02/03/20 10:44 02/03/20 10:45 DC 02/03/20 10:56 Haloperidol (Haldol) 10 mg BIDP PRN PO AGITATION 02/02/20 09:00 02/02/20 13:26 DC Haloperidol (Haldol) 10 mg STAT STAT IM 02/04/20 11:19 02/04/20 11:22 DC 02/04/20 11:33 Haloperidol (Haldol) 10 mg STAT STAT IM 02/06/20 12:01 02/06/20 12:06 DC 02/06/20 12:39 Haloperidol (Haldol) 10 mg TIDP PRN PO AGITATION 02/02/20 17:00 02/03/20 17:50 DC 02/02/20 15:16 Haloperidol (Haldol) 10 mg TIDP PRN PO ANXIETY/AGITATION 02/05/20 14:30 02/13/20 22:04 Haloperidol (Haldol) 15 mg BID PO 02/01/20 09:00 02/02/20 13:20 DC 02/02/20 08:56 Haloperidol (Haldol) 15 mg BID PO 02/03/20 21:00 02/07/20 10:07 DC 02/07/20 09:24 Home Med (Med Rec Complete!) ASDIRECTED XX 01/31/20 17:45 01/31/20 17:34 DC Lorazepam (Ativan) 2 mg STAT STAT IM 02/04/20 11:19 02/04/20 11:22 DC 02/04/20 11:33 Lorazepam (Ativan) 2 mg STAT STAT IM 02/06/20 12:01 02/06/20 12:06 DC 02/06/20 12:36 Lorazepam (Ativan) 2 mg STAT STAT PO 02/01/20 10:51 02/01/20 10:52 DC 02/01/20 10:59 Magnesium Hydroxide (Milk Of Magnesia) 30 ml DAILYPRN PRN PO CONSTIPATION 02/03/20 17:45 02/10/20 16:57 Nicotine (Nicoderm Cq 21mg) 1 patch DAILY TD 02/04/20 09:00 02/16/20 09:20 Olanzapine (ZyPREXA ZYDIS) 10 mg Q4HP PRN PO AGITATION 02/03/20 17:45 02/05/20 14:30 DC 02/04/20 00:28 Prazosin HCl (Minipress) 1 mg QHS PO 02/01/20 21:00 02/03/20 17:50 DC 02/02/20 19:33 Prazosin HCl (Minipress) 1 mg QHS PO 02/03/20 21:00 02/15/20 15:08 DC 02/14/20 21:39 Quetiapine Fumarate (SEROquel) 200 mg TID PO 02/02/20 16:00 02/03/20 17:50 DC 02/02/20 19:32 Ramelteon (Rozerem) 8 mg QHS PO 02/15/20 21:00 02/15/20 20:01 Sodium Chloride ([place] Saline Nasal Gel) 1 dose Q4HP PRN NA NASAL DRYNESS 02/13/20 14:45 Trazodone HCl (Desyrel) 50 mg QHSP PRN PO INSOMNIA 02/03/20 17:45 02/09/20 21:16 DC 02/08/20 21:43 Trazodone HCl (Desyrel) 100 mg QHSP PRN PO INSOMNIA 02/09/20 21:15 02/15/20 15:08 DC 02/14/20 21:39 Vitamin D (Vitamin D) 1,000 units DAILY PO 02/01/20 09:00 02/03/20 17:50 DC 02/02/20 08:56 Vitamin D (Vitamin D) 1,000 units DAILY PO 02/04/20 09:00 02/16/20 09:21 Allergies Coded Allergies: Penicillins (Unverified Allergy, Unknown, 09/02/19) paliperidone (Unverified Adverse Reaction, Mild, DROOLING, 01/31/20) CÉSAR MURPHY DO Feb 16, 2020 12:07
[2020-02-16] MEDS: MOM 30ML SUSPENSION UDC PO PRN (14:45)
[2020-02-16 16:12] VITALS: BP 137/74
[2020-02-16] MEDS: cloZAPine 25 MG TAB (S0136) PO SCH (20:39)
[2020-02-16] MEDS: AMANTADINE 100MG TABLET PO SCH (20:39)
[2020-02-16] MEDS: DIVALPROEX 500 MG TAB PO SCH (20:40)
[2020-02-16] MEDS: RAMELTEON 8 MG TAB (ROZEREM) PO SCH (21:37)
[2020-02-17 06:29] VITALS: BP 106/80
--- NOTE | 2020-02-17 07:16 | ECGEPIP ---
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
[2020-02-17] MEDS: NICOTINE 21MG/24HR 1 EA TRANSDERMAL TD SCH (09:00)
[2020-02-17] MEDS: BENZTROPINE 1 MG TAB PO SCH ×2 (09:39→21:43)
[2020-02-17] MEDS: FOLIC ACID 1 MG TAB PO SCH (09:39)
[2020-02-17] MEDS: VITAMIN D 1,000 INTERNATIONAL UNITS TABLET PO SCH (09:39)
[2020-02-17] MEDS: FERROUS SULFATE 325MG TAB PO SCH (09:39)
[2020-02-17] MEDS: SENOKOT S TAB PO SCH (09:40)
--- NOTE | 2020-02-17 10:32 | MHIPNPDOC ---
[facility] Progress Note Progress Note DATE OF SERVICE: 02/17/20 HISTORY: the patient is met with today, she reports she is feeling much better and has had no episodes of vegetation overnight successfully coming off the wi ndow consider, she reports the Clozaril is quite helpful and she hasn't been having any significant unusual statements. She is been amenable, and attending groups. She reports some mild constipation. VITAL SIGNS: See below. NEW TEST RESULTS: None. CURRENT MEDICATIONS: See below. MENTAL STATUS EXAMINATION: General: Fair hygiene Speech: Fluid Thought processes: Linear Thought content: Future orientated Abstract reasoning, and computation: improved Description of associations: improved Description of abnormal or psychotic thoughts: Denies any suicidal or homicidal ideation denies auditory or visual hallucinations at this time Judgment: improved Insight: improved Orientation: Appears somewhat slowed Recent and remote memory: some difficulties Attention span and concentration: [Intact] Fund of knowledge: Untested Mood: "Hi" Affect: smiling frequently, friendly DIAGNOSES: 1. Schizoaffective disorder bipolar type. 2. Cannabis use disorder. ASSESSMENT: will continue Clozaril titration, will titrate the bowel prophylaxis with low threshold for going to lactulose MANAGEMENT PLAN: Continue Clozaril to 25 Milgram's nightly, CBC to be drawn shortly Continue Depakote ER 500 mg nightly Continue Rozerem 8 mg QHS Pursue CR at this time, discontinue search for [facility] bed TIME SPENT: 15 minutes. Vital Signs Vital Signs Date Time Temp Pulse Resp B/P (MAP) Pulse Ox O2 Delivery O2 Flow Rate FiO2 02/17/20 06:29 98.1 106 18 106/80 (89) 02/16/20 16:12 100 Room Air Current Medications Current Medications Medications (Trade) Dose Ordered Sig/Gordo Route PRN Reason Start Time Stop Time Status Last Admin Dose Admin Acetaminophen (Tylenol Tab) 650 mg Q6HP PRN PO HEADACHE or DISCOMFORT 02/03/20 17:45 02/11/20 15:33 Al Hydrox/Mg Hydrox/Simethicone (Mylanta) 30 ml Q4HP PRN PO HEARTBURN/INDIGESTION 02/03/20 17:45 02/08/20 05:52 Albuterol Sulfate (Proventil, Ventolin Hfa) 2 puff Q6HP PRN INH SHORTNESS OF BREATH 02/05/20 07:30 Amantadine HCl (Symmetrel) 100 mg QHS PO 02/03/20 21:00 02/16/20 20:39 Benztropine Mesylate (Cogentin) 1 mg BID PO 02/01/20 09:00 02/03/20 17:50 DC 02/02/20 19:33 Benztropine Mesylate (Cogentin) 1 mg BID PO 02/03/20 21:00 02/17/20 09:39 Chlorpromazine HCl (Thorazine) 100 mg BID PO 02/07/20 09:00 02/10/20 11:02 DC 02/10/20 09:48 Chlorpromazine HCl (Thorazine) 200 mg QHS PO 02/10/20 21:00 02/14/20 12:36 DC 02/13/20 20:01 Chlorpromazine HCl (Thorazine) 300 mg QHS PO 02/14/20 21:00 02/15/20 15:08 DC 02/14/20 21:39 Clozapine (Clozaril) 12.5 mg BID PO 02/07/20 09:00 02/07/20 21:00 DC 02/07/20 20:05 Clozapine (Clozaril) 12.5 mg QHS PO 02/15/20 21:00 02/16/20 16:58 DC 02/15/20 20:02 Clozapine (Clozaril) 25 mg QHS PO 02/16/20 21:00 02/16/20 20:39 Diphenhydramine HCl (Benadryl) 50 mg STAT STAT IM 02/04/20 11:19 02/04/20 11:22 DC 02/04/20 11:34 Diphenhydramine HCl (Benadryl) 50 mg STAT STAT IM 02/04/20 13:32 02/04/20 13:38 DC 02/04/20 14:11 Diphenhydramine HCl (Benadryl) 100 mg STAT STAT IM 02/06/20 12:01 02/06/20 12:06 DC 02/06/20 12:41 Divalproex Sodium (Depakote) 250 mg TID PO 02/04/20 16:00 02/11/20 13:39 DC 02/11/20 09:05 Divalproex Sodium (Depakote) 500 mg QHS PO 02/11/20 21:00 02/16/20 20:40 Docusate Sodium (Colace) 100 mg DAILY PO 02/04/20 09:00 02/16/20 16:58 DC 02/16/20 09:20 Docusate Sodium (Colace) 100 mg DAILY PO 02/07/20 09:00 02/07/20 10:51 DC Ferrous Sulfate (Ferrous Sulfate) 325 mg DAILY PO 02/01/20 09:00 02/03/20 17:50 DC 02/02/20 08:56 Ferrous Sulfate (Ferrous Sulfate) 325 mg DAILY PO 02/04/20 09:00 02/17/20 09:39 Folic Acid (Folic Acid) 1 mg DAILY PO 02/04/20 09:00 02/17/20 09:39 Haloperidol (Haldol) 5 mg STAT STAT IM 02/03/20 10:44 02/03/20 10:45 DC 02/03/20 10:56 Haloperidol (Haldol) 10 mg BIDP PRN PO AGITATION 02/02/20 09:00 02/02/20 13:26 DC Haloperidol (Haldol) 10 mg STAT STAT IM 02/04/20 11:19 02/04/20 11:22 DC 02/04/20 11:33 Haloperidol (Haldol) 10 mg STAT STAT IM 02/06/20 12:01 02/06/20 12:06 DC 02/06/20 12:39 Haloperidol (Haldol) 10 mg TIDP PRN PO AGITATION 02/02/20 17:00 02/03/20 17:50 DC 02/02/20 15:16 Haloperidol (Haldol) 10 mg TIDP PRN PO ANXIETY/AGITATION 02/05/20 14:30 02/13/20 22:04 Haloperidol (Haldol) 15 mg BID PO 02/01/20 09:00 02/02/20 13:20 DC 02/02/20 08:56 Haloperidol (Haldol) 15 mg BID PO 02/03/20 21:00 02/07/20 10:07 DC 02/07/20 09:24 Home Med (Med Rec Complete!) ASDIRECTED XX 01/31/20 17:45 01/31/20 17:34 DC Lorazepam (Ativan) 2 mg STAT STAT IM 02/04/20 11:19 02/04/20 11:22 DC 02/04/20 11:33 Lorazepam (Ativan) 2 mg STAT STAT IM 02/06/20 12:01 02/06/20 12:06 DC 02/06/20 12:36 Lorazepam (Ativan) 2 mg STAT STAT PO 02/01/20 10:51 02/01/20 10:52 DC 02/01/20 10:59 Magnesium Hydroxide (Milk Of Magnesia) 30 ml DAILYPRN PRN PO CONSTIPATION 02/03/20 17:45 02/16/20 14:45 Nicotine (Nicoderm Cq 21mg) 1 patch DAILY TD 02/04/20 09:00 02/16/20 09:20 Olanzapine (ZyPREXA ZYDIS) 10 mg Q4HP PRN PO AGITATION 02/03/20 17:45 02/05/20 14:30 DC 02/04/20 00:28 Prazosin HCl (Minipress) 1 mg QHS PO 02/01/20 21:00 02/03/20 17:50 DC 02/02/20 19:33 Prazosin HCl (Minipress) 1 mg QHS PO 02/03/20 21:00 02/15/20 15:08 DC 02/14/20 21:39 Quetiapine Fumarate (SEROquel) 200 mg TID PO 02/02/20 16:00 02/03/20 17:50 DC 02/02/20 19:32 Ramelteon (Rozerem) 8 mg QHS PO 02/15/20 21:00 02/16/20 21:37 Senna/Docusate Sodium (Senokot S) 1 tab DAILY PO 02/17/20 09:00 02/17/20 09:40 Sodium Chloride ([place] Saline Nasal Gel) 1 dose Q4HP PRN NA NASAL DRYNESS 02/13/20 14:45 Trazodone HCl (Desyrel) 50 mg QHSP PRN PO INSOMNIA 02/03/20 17:45 02/09/20 21:16 DC 02/08/20 21:43 Trazodone HCl (Desyrel) 100 mg QHSP PRN PO INSOMNIA 02/09/20 21:15 02/15/20 15:08 DC 02/14/20 21:39 Vitamin D (Vitamin D) 1,000 units DAILY PO 02/01/20 09:00 02/03/20 17:50 DC 02/02/20 08:56 Vitamin D (Vitamin D) 1,000 units DAILY PO 02/04/20 09:00 02/17/20 09:39 Allergies Coded Allergies: Penicillins (Unverified Allergy, Unknown, 09/02/19) paliperidone (Unverified Adverse Reaction, Mild, DROOLING, 01/31/20) CÉSAR MURPHY DO Feb 17, 2020 10:32
[2020-02-17 18:00] VITALS: BP 120/83
[2020-02-17] MEDS: RAMELTEON 8 MG TAB (ROZEREM) PO SCH (21:43)
[2020-02-17] MEDS: cloZAPine 25 MG TAB (S0136) PO SCH (21:44)
[2020-02-17] MEDS: DIVALPROEX 500 MG TAB PO SCH (21:44)
[2020-02-17] MEDS: AMANTADINE 100MG TABLET PO SCH (21:44)
[2020-02-18 06:28] VITALS: BP 129/78
[2020-02-18] MEDS: NICOTINE 21MG/24HR 1 EA TRANSDERMAL TD SCH (09:00)
[2020-02-18] MEDS: FOLIC ACID 1 MG TAB PO SCH (09:42)
[2020-02-18] MEDS: BENZTROPINE 1 MG TAB PO SCH ×2 (09:42→21:59)
[2020-02-18] MEDS: VITAMIN D 1,000 INTERNATIONAL UNITS TABLET PO SCH (09:42)
[2020-02-18] MEDS: FERROUS SULFATE 325MG TAB PO SCH (09:42)
[2020-02-18] MEDS: SENOKOT S TAB PO SCH (09:42)
--- NOTE | 2020-02-18 10:41 | MHIPNPDOC ---
[facility] Progress Note Progress Note DATE OF SERVICE: 02/18/20 HISTORY: the patient is met with today, she has been generally doing better attending groups, she has made some unusual statements to nursing, in the form of talking about a "possum" the patient has had that ideation before, but generally reports she is tolerated Clozaril well. She reports some continued constipation, with last bowel movement the day prior VITAL SIGNS: See below. NEW TEST RESULTS: None. CURRENT MEDICATIONS: See below. MENTAL STATUS EXAMINATION: General: Fair hygiene Speech: Fluid Thought processes: Linear Thought content: Future orientated Abstract reasoning, and computation: improved Description of associations: improved Description of abnormal or psychotic thoughts: Denies any suicidal or homicidal ideation denies auditory or visual hallucinations at this time Judgment: improved Insight: improved Orientation: Appears somewhat slowed Recent and remote memory: some difficulties Attention span and concentration: [Intact] Fund of knowledge: Untested Mood: "Hi" Affect: smiling frequently, friendly DIAGNOSES: 1. Schizoaffective disorder bipolar type. 2. Cannabis use disorder. ASSESSMENT: will continue Clozaril titration, will likely be able to go to CR MANAGEMENT PLAN: Increase Clozaril to 50 Milgram's nightly, lactulose 15 mL daily for bowel prophylaxis started, discontinue Senokot Continue Depakote ER 500 mg nightly Continue Rozerem 8 mg QHS Pursue CR at this time TIME SPENT: 15 minutes. Vital Signs Vital Signs Date Time Temp Pulse Resp B/P (MAP) Pulse Ox O2 Delivery O2 Flow Rate FiO2 02/18/20 06:28 97.4 104 18 129/78 (95) 02/16/20 16:12 100 Room Air Current Medications Current Medications Medications (Trade) Dose Ordered Sig/Gordo Route PRN Reason Start Time Stop Time Status Last Admin Dose Admin Acetaminophen (Tylenol Tab) 650 mg Q6HP PRN PO HEADACHE or DISCOMFORT 02/03/20 17:45 02/11/20 15:33 Al Hydrox/Mg Hydrox/Simethicone (Mylanta) 30 ml Q4HP PRN PO HEARTBURN/INDIGESTION 02/03/20 17:45 02/08/20 05:52 Albuterol Sulfate (Proventil, Ventolin Hfa) 2 puff Q6HP PRN INH SHORTNESS OF BREATH 02/05/20 07:30 Amantadine HCl (Symmetrel) 100 mg QHS PO 02/03/20 21:00 02/17/20 21:44 Benztropine Mesylate (Cogentin) 1 mg BID PO 02/01/20 09:00 02/03/20 17:50 DC 02/02/20 19:33 Benztropine Mesylate (Cogentin) 1 mg BID PO 02/03/20 21:00 02/18/20 09:42 Chlorpromazine HCl (Thorazine) 100 mg BID PO 02/07/20 09:00 02/10/20 11:02 DC 02/10/20 09:48 Chlorpromazine HCl (Thorazine) 200 mg QHS PO 02/10/20 21:00 02/14/20 12:36 DC 02/13/20 20:01 Chlorpromazine HCl (Thorazine) 300 mg QHS PO 02/14/20 21:00 02/15/20 15:08 DC 02/14/20 21:39 Clozapine (Clozaril) 12.5 mg BID PO 02/07/20 09:00 02/07/20 21:00 DC 02/07/20 20:05 Clozapine (Clozaril) 12.5 mg QHS PO 02/15/20 21:00 02/16/20 16:58 DC 02/15/20 20:02 Clozapine (Clozaril) 25 mg QHS PO 02/16/20 21:00 02/17/20 21:44 Diphenhydramine HCl (Benadryl) 50 mg STAT STAT IM 02/04/20 11:19 02/04/20 11:22 DC 02/04/20 11:34 Diphenhydramine HCl (Benadryl) 50 mg STAT STAT IM 02/04/20 13:32 02/04/20 13:38 DC 02/04/20 14:11 Diphenhydramine HCl (Benadryl) 100 mg STAT STAT IM 02/06/20 12:01 02/06/20 12:06 DC 02/06/20 12:41 Divalproex Sodium (Depakote) 250 mg TID PO 02/04/20 16:00 02/11/20 13:39 DC 02/11/20 09:05 Divalproex Sodium (Depakote) 500 mg QHS PO 02/11/20 21:00 02/17/20 21:44 Docusate Sodium (Colace) 100 mg DAILY PO 02/04/20 09:00 02/16/20 16:58 DC 02/16/20 09:20 Docusate Sodium (Colace) 100 mg DAILY PO 02/07/20 09:00 02/07/20 10:51 DC Ferrous Sulfate (Ferrous Sulfate) 325 mg DAILY PO 02/01/20 09:00 02/03/20 17:50 DC 02/02/20 08:56 Ferrous Sulfate (Ferrous Sulfate) 325 mg DAILY PO 02/04/20 09:00 02/18/20 09:42 Folic Acid (Folic Acid) 1 mg DAILY PO 02/04/20 09:00 02/18/20 09:42 Haloperidol (Haldol) 5 mg STAT STAT IM 02/03/20 10:44 02/03/20 10:45 DC 02/03/20 10:56 Haloperidol (Haldol) 10 mg BIDP PRN PO AGITATION 02/02/20 09:00 02/02/20 13:26 DC Haloperidol (Haldol) 10 mg STAT STAT IM 02/04/20 11:19 02/04/20 11:22 DC 02/04/20 11:33 Haloperidol (Haldol) 10 mg STAT STAT IM 02/06/20 12:01 02/06/20 12:06 DC 02/06/20 12:39 Haloperidol (Haldol) 10 mg TIDP PRN PO AGITATION 02/02/20 17:00 02/03/20 17:50 DC 02/02/20 15:16 Haloperidol (Haldol) 10 mg TIDP PRN PO ANXIETY/AGITATION 02/05/20 14:30 02/13/20 22:04 Haloperidol (Haldol) 15 mg BID PO 02/01/20 09:00 02/02/20 13:20 DC 02/02/20 08:56 Haloperidol (Haldol) 15 mg BID PO 02/03/20 21:00 02/07/20 10:07 DC 02/07/20 09:24 Home Med (Med Rec Complete!) ASDIRECTED XX 01/31/20 17:45 01/31/20 17:34 DC Lorazepam (Ativan) 2 mg STAT STAT IM 02/04/20 11:19 02/04/20 11:22 DC 02/04/20 11:33 Lorazepam (Ativan) 2 mg STAT STAT IM 02/06/20 12:01 02/06/20 12:06 DC 02/06/20 12:36 Lorazepam (Ativan) 2 mg STAT STAT PO 02/01/20 10:51 02/01/20 10:52 DC 02/01/20 10:59 Magnesium Hydroxide (Milk Of Magnesia) 30 ml DAILYPRN PRN PO CONSTIPATION 02/03/20 17:45 02/16/20 14:45 Nicotine (Nicoderm Cq 21mg) 1 patch DAILY TD 02/04/20 09:00 02/16/20 09:20 Olanzapine (ZyPREXA ZYDIS) 10 mg Q4HP PRN PO AGITATION 02/03/20 17:45 02/05/20 14:30 DC 02/04/20 00:28 Prazosin HCl (Minipress) 1 mg QHS PO 02/01/20 21:00 02/03/20 17:50 DC 02/02/20 19:33 Prazosin HCl (Minipress) 1 mg QHS PO 02/03/20 21:00 02/15/20 15:08 DC 02/14/20 21:39 Quetiapine Fumarate (SEROquel) 200 mg TID PO 02/02/20 16:00 02/03/20 17:50 DC 02/02/20 19:32 Ramelteon (Rozerem) 8 mg QHS PO 02/15/20 21:00 02/17/20 21:43 Senna/Docusate Sodium (Senokot S) 1 tab DAILY PO 02/17/20 09:00 02/18/20 09:42 Sodium Chloride ([place] Saline Nasal Gel) 1 dose Q4HP PRN NA NASAL DRYNESS 02/13/20 14:45 Trazodone HCl (Desyrel) 50 mg QHSP PRN PO INSOMNIA 02/03/20 17:45 02/09/20 21:16 DC 02/08/20 21:43 Trazodone HCl (Desyrel) 100 mg QHSP PRN PO INSOMNIA 02/09/20 21:15 02/15/20 15:08 DC 02/14/20 21:39 Vitamin D (Vitamin D) 1,000 units DAILY PO 02/01/20 09:00 02/03/20 17:50 DC 02/02/20 08:56 Vitamin D (Vitamin D) 1,000 units DAILY PO 02/04/20 09:00 02/18/20 09:42 Allergies Coded Allergies: Penicillins (Unverified Allergy, Unknown, 09/02/19) paliperidone (Unverified Adverse Reaction, Mild, DROOLING, 01/31/20) CÉSAR MURPHY DO Feb 18, 2020 10:41
[2020-02-18 12:20] LABS: BASO % 0.5 % (0.0-1.0); EOS # 0.1 10^3/uL (0.0-0.5); EOS % 1.7 % (0.0-3.0); HEMATOCRIT 34.1 % (36.0-47.0); HEMOGLOBIN 10.7 g/dl (12.0-15.5); LYMPH % 31.1 % (24.0-44.0); MEAN CORPUSCULAR HGB CONC 31.4 g/dl (32.0-36.5); MEAN CORPUSCULAR VOLUME 92.4 fl (80.0-96.0); MONO # 0.6 10^3/uL (0.0-0.8); MONO % 9.3 % (0.0-5.0); NEUTROPHILS # 3.7 10^3/uL (1.5-8.5); NEUTROPHILS % 57.1 % (36.0-66.0); PLATELET COUNT, AUTOMATED 258 10^3/uL (150-450); RED BLOOD COUNT 3.69 10^6/uL (4.00-5.40); WHITE BLOOD COUNT 6.4 10^3/uL (4.0-10.0)
[2020-02-18] MEDS: LACTULOSE 20 GM/30 ML SYRUP UD PO SCH (12:25)
[2020-02-18 18:00] VITALS: BP 147/75
[2020-02-18] MEDS: AMANTADINE 100MG TABLET PO SCH (21:58)
[2020-02-18] MEDS: cloZAPine 25 MG TAB (S0136) PO SCH (21:59)
[2020-02-18] MEDS: RAMELTEON 8 MG TAB (ROZEREM) PO SCH (21:59)
[2020-02-18] MEDS: DIVALPROEX 500 MG TAB PO SCH (21:59)
[2020-02-19 06:35] VITALS: BP 139/96
[2020-02-19] MEDS: NICOTINE 21MG/24HR 1 EA TRANSDERMAL TD SCH (08:28)
[2020-02-19] MEDS: FOLIC ACID 1 MG TAB PO SCH (09:28)
[2020-02-19] MEDS: FERROUS SULFATE 325MG TAB PO SCH (09:28)
[2020-02-19] MEDS: BENZTROPINE 1 MG TAB PO SCH ×2 (09:28→21:30)
[2020-02-19] MEDS: VITAMIN D 1,000 INTERNATIONAL UNITS TABLET PO SCH (09:28)
[2020-02-19] MEDS: LACTULOSE 20 GM/30 ML SYRUP UD PO SCH (09:29)
--- NOTE | 2020-02-19 10:01 | MHIPNPDOC ---
[facility] Progress Note Progress Note DATE OF SERVICE: 02/19/20 HISTORY: the patient is doing well, she reports the constipation has resolved and that she likes the taste of the lactulose. She reports she is doing well and making friends on the unit, there's a staff reports she is been doing well engaging without too much significant bizarre statements, she has become more amenable, with no signs of violence and she came off the sitter. VITAL SIGNS: See below. NEW TEST RESULTS: None. CURRENT MEDICATIONS: See below. MENTAL STATUS EXAMINATION: General: Fair hygiene Speech: Fluid Thought processes: Linear Thought content: Future orientated Abstract reasoning, and computation: improved Description of associations: improved Description of abnormal or psychotic thoughts: Denies any suicidal or homicidal ideation denies auditory or visual hallucinations at this time Judgment: fair Insight: fair Orientation: alert and orientated times 3 Recent and remote memory: some difficulties Attention span and concentration: [Intact] Fund of knowledge: fair Mood: "Hi" Affect: euthymic DIAGNOSES: 1. Schizoaffective disorder bipolar type. 2. Cannabis use disorder. ASSESSMENT: will continue Clozaril and referral to CR MANAGEMENT PLAN: Continue Clozaril to 50 Milgram's nightly, lactulose 15 mL daily for bowel prophylaxis Continue Depakote ER 500 mg nightly Continue Rozerem 8 mg QHS Pursue CR at this time TIME SPENT: 15 minutes. Vital Signs Vital Signs Date Time Temp Pulse Resp B/P (MAP) Pulse Ox O2 Delivery O2 Flow Rate FiO2 02/19/20 06:35 99.1 94 14 139/96 (110) 02/16/20 16:12 100 Room Air Laboratory Data 24H Labs Laboratory Tests 2 02/18/20 12:05: Immature Granulocyte % (Auto) 0.3, Neutrophils (%) (Auto) 57.1, Lymphocytes (%) (Auto) 31.1, Monocytes (%) (Auto) 9.3H, Eosinophils (%) (Auto) 1.7, Basophils (%) (Auto) 0.5, Neutrophils # (Auto) 3.7, Lymphocytes # (Auto) 2.0, Monocytes # (Auto) 0.6, Eosinophils # (Auto) 0.1, Basophils # (Auto) 0.0, Nucleated Red Blood Cells % (auto) 0.0 CBC/BMP Laboratory Tests 02/18/20 12:05 Current Medications Current Medications Medications (Trade) Dose Ordered Sig/Gordo Route PRN Reason Start Time Stop Time Status Last Admin Dose Admin Acetaminophen (Tylenol Tab) 650 mg Q6HP PRN PO HEADACHE or DISCOMFORT 02/03/20 17:45 02/11/20 15:33 Al Hydrox/Mg Hydrox/Simethicone (Mylanta) 30 ml Q4HP PRN PO HEARTBURN/INDIGESTION 02/03/20 17:45 02/08/20 05:52 Albuterol Sulfate (Proventil, Ventolin Hfa) 2 puff Q6HP PRN INH SHORTNESS OF BREATH 02/05/20 07:30 Amantadine HCl (Symmetrel) 100 mg QHS PO 02/03/20 21:00 02/18/20 21:58 Benztropine Mesylate (Cogentin) 1 mg BID PO 02/01/20 09:00 02/03/20 17:50 DC 02/02/20 19:33 Benztropine Mesylate (Cogentin) 1 mg BID PO 02/03/20 21:00 02/19/20 09:28 Chlorpromazine HCl (Thorazine) 100 mg BID PO 02/07/20 09:00 02/10/20 11:02 DC 02/10/20 09:48 Chlorpromazine HCl (Thorazine) 200 mg QHS PO 02/10/20 21:00 02/14/20 12:36 DC 02/13/20 20:01 Chlorpromazine HCl (Thorazine) 300 mg QHS PO 02/14/20 21:00 02/15/20 15:08 DC 02/14/20 21:39 Clozapine (Clozaril) 12.5 mg BID PO 02/07/20 09:00 02/07/20 21:00 DC 02/07/20 20:05 Clozapine (Clozaril) 12.5 mg QHS PO 02/15/20 21:00 02/16/20 16:58 DC 02/15/20 20:02 Clozapine (Clozaril) 25 mg QHS PO 02/16/20 21:00 02/18/20 11:31 DC 02/17/20 21:44 Clozapine (Clozaril) 50 mg QHS PO 02/18/20 21:00 02/18/20 21:59 Diphenhydramine HCl (Benadryl) 50 mg STAT STAT IM 02/04/20 11:19 02/04/20 11:22 DC 02/04/20 11:34 Diphenhydramine HCl (Benadryl) 50 mg STAT STAT IM 02/04/20 13:32 02/04/20 13:38 DC 02/04/20 14:11 Diphenhydramine HCl (Benadryl) 100 mg STAT STAT IM 02/06/20 12:01 02/06/20 12:06 DC 02/06/20 12:41 Divalproex Sodium (Depakote) 250 mg TID PO 02/04/20 16:00 02/11/20 13:39 DC 02/11/20 09:05 Divalproex Sodium (Depakote) 500 mg QHS PO 02/11/20 21:00 02/18/20 21:59 Docusate Sodium (Colace) 100 mg DAILY PO 02/04/20 09:00 02/16/20 16:58 DC 02/16/20 09:20 Docusate Sodium (Colace) 100 mg DAILY PO 02/07/20 09:00 02/07/20 10:51 DC Ferrous Sulfate (Ferrous Sulfate) 325 mg DAILY PO 02/01/20 09:00 02/03/20 17:50 DC 02/02/20 08:56 Ferrous Sulfate (Ferrous Sulfate) 325 mg DAILY PO 02/04/20 09:00 02/19/20 09:28 Folic Acid (Folic Acid) 1 mg DAILY PO 02/04/20 09:00 02/19/20 09:28 Haloperidol (Haldol) 5 mg STAT STAT IM 02/03/20 10:44 02/03/20 10:45 DC 02/03/20 10:56 Haloperidol (Haldol) 10 mg BIDP PRN PO AGITATION 02/02/20 09:00 02/02/20 13:26 DC Haloperidol (Haldol) 10 mg STAT STAT IM 02/04/20 11:19 02/04/20 11:22 DC 02/04/20 11:33 Haloperidol (Haldol) 10 mg STAT STAT IM 02/06/20 12:01 02/06/20 12:06 DC 02/06/20 12:39 Haloperidol (Haldol) 10 mg TIDP PRN PO AGITATION 02/02/20 17:00 02/03/20 17:50 DC 02/02/20 15:16 Haloperidol (Haldol) 10 mg TIDP PRN PO ANXIETY/AGITATION 02/05/20 14:30 02/13/20 22:04 Haloperidol (Haldol) 15 mg BID PO 02/01/20 09:00 02/02/20 13:20 DC 02/02/20 08:56 Haloperidol (Haldol) 15 mg BID PO 02/03/20 21:00 02/07/20 10:07 DC 02/07/20 09:24 Home Med (Med Rec Complete!) ASDIRECTED XX 01/31/20 17:45 01/31/20 17:34 DC Lactulose (Cephulac) 15 ml DAILY PO 02/18/20 11:30 02/19/20 09:29 Lorazepam (Ativan) 2 mg STAT STAT IM 02/04/20 11:19 02/04/20 11:22 DC 02/04/20 11:33 Lorazepam (Ativan) 2 mg STAT STAT IM 02/06/20 12:01 02/06/20 12:06 DC 02/06/20 12:36 Lorazepam (Ativan) 2 mg STAT STAT PO 02/01/20 10:51 02/01/20 10:52 DC 02/01/20 10:59 Magnesium Hydroxide (Milk Of Magnesia) 30 ml DAILYPRN PRN PO CONSTIPATION 02/03/20 17:45 02/16/20 14:45 Nicotine (Nicoderm Cq 21mg) 1 patch DAILY TD 02/04/20 09:00 02/16/20 09:20 Olanzapine (ZyPREXA ZYDIS) 10 mg Q4HP PRN PO AGITATION 02/03/20 17:45 02/05/20 14:30 DC 02/04/20 00:28 Prazosin HCl (Minipress) 1 mg QHS PO 02/01/20 21:00 02/03/20 17:50 DC 02/02/20 19:33 Prazosin HCl (Minipress) 1 mg QHS PO 02/03/20 21:00 02/15/20 15:08 DC 02/14/20 21:39 Quetiapine Fumarate (SEROquel) 200 mg TID PO 02/02/20 16:00 02/03/20 17:50 DC 02/02/20 19:32 Ramelteon (Rozerem) 8 mg QHS PO 02/15/20 21:00 02/18/20 21:59 Senna/Docusate Sodium (Senokot S) 1 tab DAILY PO 02/17/20 09:00 02/18/20 11:31 DC 02/18/20 09:42 Sodium Chloride ([place] Saline Nasal Gel) 1 dose Q4HP PRN NA NASAL DRYNESS 02/13/20 14:45 Trazodone HCl (Desyrel) 50 mg QHSP PRN PO INSOMNIA 02/03/20 17:45 02/09/20 21:16 DC 02/08/20 21:43 Trazodone HCl (Desyrel) 100 mg QHSP PRN PO INSOMNIA 02/09/20 21:15 02/15/20 15:08 DC 02/14/20 21:39 Vitamin D (Vitamin D) 1,000 units DAILY PO 02/01/20 09:00 02/03/20 17:50 DC 02/02/20 08:56 Vitamin D (Vitamin D) 1,000 units DAILY PO 02/04/20 09:00 02/19/20 09:28 Allergies Coded Allergies: Penicillins (Unverified Allergy, Unknown, 09/02/19) paliperidone (Unverified Adverse Reaction, Mild, DROOLING, 01/31/20) CÉSAR MURPHY DO Feb 19, 2020 10:01
[2020-02-19 19:55] VITALS: BP 128/69
[2020-02-19] MEDS: DIVALPROEX 500 MG TAB PO SCH (21:30)
[2020-02-19] MEDS: cloZAPine 25 MG TAB (S0136) PO SCH (21:30)
[2020-02-19] MEDS: AMANTADINE 100MG TABLET PO SCH (21:31)
[2020-02-19] MEDS: RAMELTEON 8 MG TAB (ROZEREM) PO SCH (21:31)
[2020-02-19] MEDS ORDERED: chlorproMAZINE 25 MG TABLET PO ONE (23:45)
[2020-02-20] MEDS: VITAMIN D 1,000 INTERNATIONAL UNITS TABLET PO SCH (09:00)
[2020-02-20] MEDS: NICOTINE 21MG/24HR 1 EA TRANSDERMAL TD SCH (09:00)
[2020-02-20] MEDS: LACTULOSE 20 GM/30 ML SYRUP UD PO SCH (10:23)
[2020-02-20] MEDS: FERROUS SULFATE 325MG TAB PO SCH (10:23)
[2020-02-20] MEDS: BENZTROPINE 1 MG TAB PO SCH ×2 (10:23→21:35)
[2020-02-20] MEDS: FOLIC ACID 1 MG TAB PO SCH (10:24)
--- NOTE | 2020-02-20 10:44 | MHIPNPDOC ---
[facility] Progress Note Progress Note DATE OF SERVICE: 02/20/20 HISTORY: the patient is met with today, she reports she is feeling well and her concentrations improving. She reports she is open to waiting until the CR comm ittee meets, as she will need this to avert the need for long-term. She's doing generally well reports no constipation and has been social on the unit. She said no aggression or violence and no notable unusual ideation VITAL SIGNS: See below. NEW TEST RESULTS: None. CURRENT MEDICATIONS: See below. MENTAL STATUS EXAMINATION: General: Fair hygiene Speech: Fluid Thought processes: Linear Thought content: Future orientated Abstract reasoning, and computation: improved Description of associations: improved Description of abnormal or psychotic thoughts: Denies any suicidal or homicidal ideation denies auditory or visual hallucinations at this time Judgment: fair Insight: fair Orientation: alert and orientated times 3 Recent and remote memory: some difficulties Attention span and concentration: [Intact] Fund of knowledge: fair Mood: "Hi" Affect: euthymic DIAGNOSES: 1. Schizoaffective disorder bipolar type. 2. Cannabis use disorder. ASSESSMENT: will continue Clozaril and referral to CR MANAGEMENT PLAN: Continue Clozaril to 50 milligrams nightly, lactulose 15 mL daily for bowel prophylaxis Continue Depakote ER 500 mg nightly Continue Rozerem 8 mg QHS Pursue CR at this time TIME SPENT: 15 minutes. Vital Signs Vital Signs Date Time Temp Pulse Resp B/P (MAP) Pulse Ox O2 Delivery O2 Flow Rate FiO2 02/19/20 19:55 98.8 96 16 128/69 (88) 02/16/20 16:12 100 Room Air Current Medications Current Medications Medications (Trade) Dose Ordered Sig/Gordo Route PRN Reason Start Time Stop Time Status Last Admin Dose Admin Acetaminophen (Tylenol Tab) 650 mg Q6HP PRN PO HEADACHE or DISCOMFORT 02/03/20 17:45 02/11/20 15:33 Al Hydrox/Mg Hydrox/Simethicone (Mylanta) 30 ml Q4HP PRN PO HEARTBURN/INDIGESTION 02/03/20 17:45 02/08/20 05:52 Albuterol Sulfate (Proventil, Ventolin Hfa) 2 puff Q6HP PRN INH SHORTNESS OF BREATH 02/05/20 07:30 Amantadine HCl (Symmetrel) 100 mg QHS PO 02/03/20 21:00 02/19/20 21:31 Benztropine Mesylate (Cogentin) 1 mg BID PO 02/01/20 09:00 02/03/20 17:50 DC 02/02/20 19:33 Benztropine Mesylate (Cogentin) 1 mg BID PO 02/03/20 21:00 02/20/20 10:23 Chlorpromazine HCl (Thorazine) 100 mg BID PO 02/07/20 09:00 02/10/20 11:02 DC 02/10/20 09:48 Chlorpromazine HCl (Thorazine) 200 mg QHS PO 02/10/20 21:00 02/14/20 12:36 DC 02/13/20 20:01 Chlorpromazine HCl (Thorazine) 300 mg QHS PO 02/14/20 21:00 02/15/20 15:08 DC 02/14/20 21:39 Clozapine (Clozaril) 12.5 mg BID PO 02/07/20 09:00 02/07/20 21:00 DC 02/07/20 20:05 Clozapine (Clozaril) 12.5 mg QHS PO 02/15/20 21:00 02/16/20 16:58 DC 02/15/20 20:02 Clozapine (Clozaril) 25 mg QHS PO 02/16/20 21:00 02/18/20 11:31 DC 02/17/20 21:44 Clozapine (Clozaril) 50 mg QHS PO 02/18/20 21:00 02/19/20 21:30 Diphenhydramine HCl (Benadryl) 50 mg STAT STAT IM 02/04/20 11:19 02/04/20 11:22 DC 02/04/20 11:34 Diphenhydramine HCl (Benadryl) 50 mg STAT STAT IM 02/04/20 13:32 02/04/20 13:38 DC 02/04/20 14:11 Diphenhydramine HCl (Benadryl) 100 mg STAT STAT IM 02/06/20 12:01 02/06/20 12:06 DC 02/06/20 12:41 Divalproex Sodium (Depakote) 250 mg TID PO 02/04/20 16:00 02/11/20 13:39 DC 02/11/20 09:05 Divalproex Sodium (Depakote) 500 mg QHS PO 02/11/20 21:00 02/19/20 21:30 Docusate Sodium (Colace) 100 mg DAILY PO 02/04/20 09:00 02/16/20 16:58 DC 02/16/20 09:20 Docusate Sodium (Colace) 100 mg DAILY PO 02/07/20 09:00 02/07/20 10:51 DC Ferrous Sulfate (Ferrous Sulfate) 325 mg DAILY PO 02/01/20 09:00 02/03/20 17:50 DC 02/02/20 08:56 Ferrous Sulfate (Ferrous Sulfate) 325 mg DAILY PO 02/04/20 09:00 02/20/20 10:23 Folic Acid (Folic Acid) 1 mg DAILY PO 02/04/20 09:00 02/20/20 10:24 Haloperidol (Haldol) 5 mg STAT STAT IM 02/03/20 10:44 02/03/20 10:45 DC 02/03/20 10:56 Haloperidol (Haldol) 10 mg BIDP PRN PO AGITATION 02/02/20 09:00 02/02/20 13:26 DC Haloperidol (Haldol) 10 mg STAT STAT IM 02/04/20 11:19 02/04/20 11:22 DC 02/04/20 11:33 Haloperidol (Haldol) 10 mg STAT STAT IM 02/06/20 12:01 02/06/20 12:06 DC 02/06/20 12:39 Haloperidol (Haldol) 10 mg TIDP PRN PO AGITATION 02/02/20 17:00 02/03/20 17:50 DC 02/02/20 15:16 Haloperidol (Haldol) 10 mg TIDP PRN PO ANXIETY/AGITATION 02/05/20 14:30 02/19/20 18:46 Haloperidol (Haldol) 15 mg BID PO 02/01/20 09:00 02/02/20 13:20 DC 02/02/20 08:56 Haloperidol (Haldol) 15 mg BID PO 02/03/20 21:00 02/07/20 10:07 DC 02/07/20 09:24 Home Med (Med Rec Complete!) ASDIRECTED XX 01/31/20 17:45 01/31/20 17:34 DC Lactulose (Cephulac) 15 ml DAILY PO 02/18/20 11:30 02/20/20 10:23 Lorazepam (Ativan) 2 mg STAT STAT IM 02/04/20 11:19 02/04/20 11:22 DC 02/04/20 11:33 Lorazepam (Ativan) 2 mg STAT STAT IM 02/06/20 12:01 02/06/20 12:06 DC 02/06/20 12:36 Lorazepam (Ativan) 2 mg STAT STAT PO 02/01/20 10:51 02/01/20 10:52 DC 02/01/20 10:59 Magnesium Hydroxide (Milk Of Magnesia) 30 ml DAILYPRN PRN PO CONSTIPATION 02/03/20 17:45 02/16/20 14:45 Nicotine (Nicoderm Cq 21mg) 1 patch DAILY TD 02/04/20 09:00 02/16/20 09:20 Olanzapine (ZyPREXA ZYDIS) 10 mg Q4HP PRN PO AGITATION 02/03/20 17:45 02/05/20 14:30 DC 02/04/20 00:28 Prazosin HCl (Minipress) 1 mg QHS PO 02/01/20 21:00 02/03/20 17:50 DC 02/02/20 19:33 Prazosin HCl (Minipress) 1 mg QHS PO 02/03/20 21:00 02/15/20 15:08 DC 02/14/20 21:39 Quetiapine Fumarate (SEROquel) 200 mg TID PO 02/02/20 16:00 02/03/20 17:50 DC 02/02/20 19:32 Ramelteon (Rozerem) 8 mg QHS PO 02/15/20 21:00 02/19/20 21:31 Senna/Docusate Sodium (Senokot S) 1 tab DAILY PO 02/17/20 09:00 02/18/20 11:31 DC 02/18/20 09:42 Sodium Chloride ([place] Saline Nasal Gel) 1 dose Q4HP PRN NA NASAL DRYNESS 02/13/20 14:45 Trazodone HCl (Desyrel) 50 mg QHSP PRN PO INSOMNIA 02/03/20 17:45 02/09/20 21:16 DC 02/08/20 21:43 Trazodone HCl (Desyrel) 100 mg QHSP PRN PO INSOMNIA 02/09/20 21:15 02/15/20 15:08 DC 02/14/20 21:39 Vitamin D (Vitamin D) 1,000 units DAILY PO 02/01/20 09:00 02/03/20 17:50 DC 02/02/20 08:56 Vitamin D (Vitamin D) 1,000 units DAILY PO 02/04/20 09:00 02/20/20 09:00 Allergies Coded Allergies: Penicillins (Unverified Allergy, Unknown, 09/02/19) paliperidone (Unverified Adverse Reaction, Mild, DROOLING, 01/31/20) CÉSAR MURPHY DO Feb 20, 2020 10:44
[2020-02-20 17:03] VITALS: BP 125/100
[2020-02-20 17:36] VITALS: BP 125/100
[2020-02-20] MEDS: RAMELTEON 8 MG TAB (ROZEREM) PO SCH (21:34)
[2020-02-20] MEDS: AMANTADINE 100MG TABLET PO SCH (21:34)
[2020-02-20] MEDS: cloZAPine 25 MG TAB (S0136) PO SCH (21:34)
[2020-02-20] MEDS: DIVALPROEX 500 MG TAB PO SCH (21:35)
[2020-02-21 06:22] VITALS: BP 146/70
--- NOTE | 2020-02-21 09:46 | MHIPNPDOC ---
[facility] Progress Note Progress Note DATE OF SERVICE: 02/21/20 HISTORY: The patient is met with today, she reports she is doing better feeling improved. She is excited about speaking to the CR interview on Monday. She re ports that because her always helpful in that she has has been hearing voices, she has not had any major agitation or aggression is reportedly improving in terms of her social ability VITAL SIGNS: See below. NEW TEST RESULTS: None. CURRENT MEDICATIONS: See below. MENTAL STATUS EXAMINATION: General: Fair hygiene Speech: Fluid Thought processes: Linear Thought content: Future orientated Abstract reasoning, and computation: improved Description of associations: improved Description of abnormal or psychotic thoughts: Denies any suicidal or homicidal ideation denies auditory or visual hallucinations at this time Judgment: fair Insight: fair Orientation: alert and orientated times 3 Recent and remote memory: some difficulties Attention span and concentration: [Intact] Fund of knowledge: fair Mood: "Hi" Affect: euthymic DIAGNOSES: 1. Schizoaffective disorder bipolar type. 2. Cannabis use disorder. ASSESSMENT: will continue Clozaril and referral to CR MANAGEMENT PLAN: Continue Clozaril to 50 milligrams nightly, lactulose 15 mL daily for bowel prophylaxis Continue Depakote ER 500 mg nightly, labs to be drawn tomorrow morning Continue Rozerem 8 mg QHS Pursue CR at this time TIME SPENT: 15 minutes. Vital Signs Vital Signs Date Time Temp Pulse Resp B/P (MAP) Pulse Ox O2 Delivery O2 Flow Rate FiO2 02/21/20 06:22 97.6 89 18 146/70 (95) 100 Room Air Current Medications Current Medications Medications (Trade) Dose Ordered Sig/Gordo Route PRN Reason Start Time Stop Time Status Last Admin Dose Admin Acetaminophen (Tylenol Tab) 650 mg Q6HP PRN PO HEADACHE or DISCOMFORT 02/03/20 17:45 02/11/20 15:33 Al Hydrox/Mg Hydrox/Simethicone (Mylanta) 30 ml Q4HP PRN PO HEARTBURN/INDIGESTION 02/03/20 17:45 02/08/20 05:52 Albuterol Sulfate (Proventil, Ventolin Hfa) 2 puff Q6HP PRN INH SHORTNESS OF BREATH 02/05/20 07:30 Amantadine HCl (Symmetrel) 100 mg QHS PO 02/03/20 21:00 02/20/20 21:34 Benztropine Mesylate (Cogentin) 1 mg BID PO 02/01/20 09:00 02/03/20 17:50 DC 02/02/20 19:33 Benztropine Mesylate (Cogentin) 1 mg BID PO 02/03/20 21:00 02/20/20 21:35 Chlorpromazine HCl (Thorazine) 100 mg BID PO 02/07/20 09:00 02/10/20 11:02 DC 02/10/20 09:48 Chlorpromazine HCl (Thorazine) 200 mg QHS PO 02/10/20 21:00 02/14/20 12:36 DC 02/13/20 20:01 Chlorpromazine HCl (Thorazine) 300 mg QHS PO 02/14/20 21:00 02/15/20 15:08 DC 02/14/20 21:39 Clozapine (Clozaril) 12.5 mg BID PO 02/07/20 09:00 02/07/20 21:00 DC 02/07/20 20:05 Clozapine (Clozaril) 12.5 mg QHS PO 02/15/20 21:00 02/16/20 16:58 DC 02/15/20 20:02 Clozapine (Clozaril) 25 mg QHS PO 02/16/20 21:00 02/18/20 11:31 DC 02/17/20 21:44 Clozapine (Clozaril) 50 mg QHS PO 02/18/20 21:00 02/20/20 21:34 Diphenhydramine HCl (Benadryl) 50 mg STAT STAT IM 02/04/20 11:19 02/04/20 11:22 DC 02/04/20 11:34 Diphenhydramine HCl (Benadryl) 50 mg STAT STAT IM 02/04/20 13:32 02/04/20 13:38 DC 02/04/20 14:11 Diphenhydramine HCl (Benadryl) 100 mg STAT STAT IM 02/06/20 12:01 02/06/20 12:06 DC 02/06/20 12:41 Divalproex Sodium (Depakote) 250 mg TID PO 02/04/20 16:00 02/11/20 13:39 DC 02/11/20 09:05 Divalproex Sodium (Depakote) 500 mg QHS PO 02/11/20 21:00 02/20/20 21:35 Docusate Sodium (Colace) 100 mg DAILY PO 02/04/20 09:00 02/16/20 16:58 DC 02/16/20 09:20 Docusate Sodium (Colace) 100 mg DAILY PO 02/07/20 09:00 02/07/20 10:51 DC Ferrous Sulfate (Ferrous Sulfate) 325 mg DAILY PO 02/01/20 09:00 02/03/20 17:50 DC 02/02/20 08:56 Ferrous Sulfate (Ferrous Sulfate) 325 mg DAILY PO 02/04/20 09:00 02/20/20 10:23 Folic Acid (Folic Acid) 1 mg DAILY PO 02/04/20 09:00 02/20/20 10:24 Haloperidol (Haldol) 5 mg STAT STAT IM 02/03/20 10:44 02/03/20 10:45 DC 02/03/20 10:56 Haloperidol (Haldol) 10 mg BIDP PRN PO AGITATION 02/02/20 09:00 02/02/20 13:26 DC Haloperidol (Haldol) 10 mg STAT STAT IM 02/04/20 11:19 02/04/20 11:22 DC 02/04/20 11:33 Haloperidol (Haldol) 10 mg STAT STAT IM 02/06/20 12:01 02/06/20 12:06 DC 02/06/20 12:39 Haloperidol (Haldol) 10 mg TIDP PRN PO AGITATION 02/02/20 17:00 02/03/20 17:50 DC 02/02/20 15:16 Haloperidol (Haldol) 10 mg TIDP PRN PO ANXIETY/AGITATION 02/05/20 14:30 02/19/20 18:46 Haloperidol (Haldol) 15 mg BID PO 02/01/20 09:00 02/02/20 13:20 DC 02/02/20 08:56 Haloperidol (Haldol) 15 mg BID PO 02/03/20 21:00 02/07/20 10:07 DC 02/07/20 09:24 Home Med (Med Rec Complete!) ASDIRECTED XX 01/31/20 17:45 01/31/20 17:34 DC Lactulose (Cephulac) 15 ml DAILY PO 02/18/20 11:30 02/20/20 10:23 Lorazepam (Ativan) 2 mg STAT STAT IM 02/04/20 11:19 02/04/20 11:22 DC 02/04/20 11:33 Lorazepam (Ativan) 2 mg STAT STAT IM 02/06/20 12:01 02/06/20 12:06 DC 02/06/20 12:36 Lorazepam (Ativan) 2 mg STAT STAT PO 02/01/20 10:51 02/01/20 10:52 DC 02/01/20 10:59 Magnesium Hydroxide (Milk Of Magnesia) 30 ml DAILYPRN PRN PO CONSTIPATION 02/03/20 17:45 02/16/20 14:45 Nicotine (Nicoderm Cq 21mg) 1 patch DAILY TD 02/04/20 09:00 02/16/20 09:20 Olanzapine (ZyPREXA ZYDIS) 10 mg Q4HP PRN PO AGITATION 02/03/20 17:45 02/05/20 14:30 DC 02/04/20 00:28 Prazosin HCl (Minipress) 1 mg QHS PO 02/01/20 21:00 02/03/20 17:50 DC 02/02/20 19:33 Prazosin HCl (Minipress) 1 mg QHS PO 02/03/20 21:00 02/15/20 15:08 DC 02/14/20 21:39 Quetiapine Fumarate (SEROquel) 200 mg TID PO 02/02/20 16:00 02/03/20 17:50 DC 02/02/20 19:32 Ramelteon (Rozerem) 8 mg QHS PO 02/15/20 21:00 02/20/20 21:34 Senna/Docusate Sodium (Senokot S) 1 tab DAILY PO 02/17/20 09:00 02/18/20 11:31 DC 02/18/20 09:42 Sodium Chloride ([place] Saline Nasal Gel) 1 dose Q4HP PRN NA NASAL DRYNESS 02/13/20 14:45 Trazodone HCl (Desyrel) 50 mg QHSP PRN PO INSOMNIA 02/03/20 17:45 02/09/20 21:16 DC 02/08/20 21:43 Trazodone HCl (Desyrel) 100 mg QHSP PRN PO INSOMNIA 02/09/20 21:15 02/15/20 15:08 DC 02/14/20 21:39 Vitamin D (Vitamin D) 1,000 units DAILY PO 02/01/20 09:00 02/03/20 17:50 DC 02/02/20 08:56 Vitamin D (Vitamin D) 1,000 units DAILY PO 02/04/20 09:00 02/20/20 09:00 Allergies Coded Allergies: Penicillins (Unverified Allergy, Unknown, 09/02/19) paliperidone (Unverified Adverse Reaction, Mild, DROOLING, 01/31/20) CÉSAR MURPHY DO Feb 21, 2020 09:46
[2020-02-21] MEDS: LACTULOSE 20 GM/30 ML SYRUP UD PO SCH (10:03)
[2020-02-21] MEDS: VITAMIN D 1,000 INTERNATIONAL UNITS TABLET PO SCH (10:04)
[2020-02-21] MEDS: FERROUS SULFATE 325MG TAB PO SCH (10:04)
[2020-02-21] MEDS: FOLIC ACID 1 MG TAB PO SCH (10:04)
[2020-02-21] MEDS: BENZTROPINE 1 MG TAB PO SCH ×2 (10:06→21:54)
[2020-02-21] MEDS: NICOTINE 21MG/24HR 1 EA TRANSDERMAL TD SCH (10:11)
[2020-02-21 12:16] LABS: BASO % 0.3 % (0.0-1.0); EOS # 0.1 10^3/uL (0.0-0.5); EOS % 1.8 % (0.0-3.0); HEMATOCRIT 35.9 % (36.0-47.0); HEMOGLOBIN 11.4 g/dl (12.0-15.5); LYMPH # 2.1 10^3/uL (1.5-5.0); LYMPH % 32.9 % (24.0-44.0); MEAN CORPUSCULAR HEMOGLOBIN 29.5 pg (27.0-33.0); MEAN CORPUSCULAR HGB CONC 31.8 g/dl (32.0-36.5); MONO # 0.6 10^3/uL (0.0-0.8); MONO % 9.8 % (0.0-5.0); NEUTROPHILS # 3.4 10^3/uL (1.5-8.5); NEUTROPHILS % 54.7 % (36.0-66.0); PLATELET COUNT, AUTOMATED 280 10^3/uL (150-450); RED BLOOD COUNT 3.86 10^6/uL (4.00-5.40); WHITE BLOOD COUNT 6.2 10^3/uL (4.0-10.0)
[2020-02-21] MEDS: MOM 30ML SUSPENSION UDC PO PRN (14:28)
[2020-02-21 16:00] VITALS: BP 143/87
[2020-02-21] MEDS: cloZAPine 25 MG TAB (S0136) PO SCH (21:54)
[2020-02-21] MEDS: AMANTADINE 100MG TABLET PO SCH (21:55)
[2020-02-21] MEDS: DIVALPROEX 500 MG TAB PO SCH (21:55)
[2020-02-21] MEDS: RAMELTEON 8 MG TAB (ROZEREM) PO SCH (21:55)
[2020-02-22 05:19] VITALS: BP 140/82
[2020-02-22] MEDS: NICOTINE 21MG/24HR 1 EA TRANSDERMAL TD SCH (09:00)
[2020-02-22] MEDS: BENZTROPINE 1 MG TAB PO SCH ×2 (09:48→21:23)
[2020-02-22] MEDS: FOLIC ACID 1 MG TAB PO SCH (09:48)
[2020-02-22] MEDS: VITAMIN D 1,000 INTERNATIONAL UNITS TABLET PO SCH (09:48)
[2020-02-22] MEDS: LACTULOSE 20 GM/30 ML SYRUP UD PO SCH ×2 (09:48→21:22)
[2020-02-22] MEDS: FERROUS SULFATE 325MG TAB PO SCH (09:48)
[2020-02-22 17:54] VITALS: BP 139/93
[2020-02-22] MEDS: DIVALPROEX 500 MG TAB PO SCH (21:23)
[2020-02-22] MEDS: cloZAPine 25 MG TAB (S0136) PO SCH (21:23)
[2020-02-22] MEDS: RAMELTEON 8 MG TAB (ROZEREM) PO SCH (21:24)
[2020-02-22] MEDS: AMANTADINE 100MG TABLET PO SCH (21:24)
[2020-02-23 06:40] VITALS: BP 149/94
[2020-02-23] MEDS: NICOTINE 21MG/24HR 1 EA TRANSDERMAL TD SCH (09:00)
[2020-02-23] MEDS: BENZTROPINE 1 MG TAB PO SCH ×2 (10:29→21:50)
[2020-02-23] MEDS: FERROUS SULFATE 325MG TAB PO SCH (10:29)
[2020-02-23] MEDS: FOLIC ACID 1 MG TAB PO SCH (10:29)
[2020-02-23] MEDS: VITAMIN D 1,000 INTERNATIONAL UNITS TABLET PO SCH (10:29)
[2020-02-23] MEDS: LACTULOSE 20 GM/30 ML SYRUP UD PO SCH (10:30)
[2020-02-23] MEDS ORDERED: chlorproMAZINE 25 MG TABLET PO ONE (12:30)
[2020-02-23 18:20] VITALS: BP 140/92
[2020-02-23] MEDS: cloZAPine 25 MG TAB (S0136) PO SCH (21:50)
[2020-02-23] MEDS: RAMELTEON 8 MG TAB (ROZEREM) PO SCH (21:51)
[2020-02-23] MEDS: AMANTADINE 100MG TABLET PO SCH (21:51)
[2020-02-23] MEDS: DIVALPROEX 500 MG TAB PO SCH (21:51)
[2020-02-24 06:25] VITALS: BP 137/85
[2020-02-24] MEDS: NICOTINE 21MG/24HR 1 EA TRANSDERMAL TD SCH (09:00)
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
[2020-02-24] MEDS: BENZTROPINE 1 MG TAB PO SCH ×2 (10:10→21:36)
[2020-02-24] MEDS: FERROUS SULFATE 325MG TAB PO SCH (10:11)
[2020-02-24] MEDS: VITAMIN D 1,000 INTERNATIONAL UNITS TABLET PO SCH (10:11)
[2020-02-24] MEDS: FOLIC ACID 1 MG TAB PO SCH (10:11)
[2020-02-24] MEDS: LACTULOSE 20 GM/30 ML SYRUP UD PO SCH (12:37)
[2020-02-24 16:00] VITALS: BP 134/81
[2020-02-24] MEDS: MOM 30ML SUSPENSION UDC PO PRN (18:18)
[2020-02-24] MEDS: RAMELTEON 8 MG TAB (ROZEREM) PO SCH (21:36)
[2020-02-24] MEDS: cloZAPine 25 MG TAB (S0136) PO SCH (21:36)
[2020-02-24] MEDS: DIVALPROEX 500 MG TAB PO SCH (21:37)
[2020-02-24] MEDS: AMANTADINE 100MG TABLET PO SCH (21:37)
[2020-02-25 06:26] VITALS: BP 144/87
[2020-02-25] MEDS: NICOTINE 21MG/24HR 1 EA TRANSDERMAL TD SCH (09:00)
[2020-02-25] MEDS: FERROUS SULFATE 325MG TAB PO SCH (09:32)
[2020-02-25] MEDS: LACTULOSE 20 GM/30 ML SYRUP UD PO SCH (09:32)
[2020-02-25] MEDS: VITAMIN D 1,000 INTERNATIONAL UNITS TABLET PO SCH (09:32)
[2020-02-25] MEDS: BENZTROPINE 1 MG TAB PO SCH ×2 (09:32→21:23)
[2020-02-25] MEDS: FOLIC ACID 1 MG TAB PO SCH (09:32)
[2020-02-25 16:27] VITALS: BP 133/82
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
[2020-02-25] MEDS: RAMELTEON 8 MG TAB (ROZEREM) PO SCH (21:22)
[2020-02-25] MEDS: AMANTADINE 100MG TABLET PO SCH (21:22)
[2020-02-25] MEDS: cloZAPine 25 MG TAB (S0136) PO SCH (21:22)
[2020-02-25] MEDS: DIVALPROEX 500 MG TAB PO SCH (21:23)
[2020-02-25 21:52] VITALS: BP 165/93
[2020-02-26] MEDS ORDERED: SIMETHICONE 80 MG CHEW TAB PO PRN (01:45)
--- NOTE | 2020-02-26 01:51 | IPNPDOC ---
Subjective Date Seen The patient was seen on 02/26/20. Subjective Chief Complaint/HPI Abdominal distention Events since last encounter While on the night service I was asked to evaluate Ms. Cruz for abdominal distention and complaints of belching that "seemed like gas coming out the other end." She reported she did have a bowel movement the previous morning, that her BMs have been a little more hard than usual. She denies changes in her bowel habits with changes in her medications. Constitutional: Denies: Fever, Night Sweats Gastrointestinal: Reports: Abdominal Pain, Constipation; Denies: Vomiting, Diarrhea, Melena, Hematochezia Objective Physical Examination General Exam: Positive: Alert, Cooperative, No Acute Distress (she was sleeping when I saw her, but was easily arousable) Eye Exam: Positive: Conjunctiva & lids normal; Negative: Sclera icteric ENT Exam: Positive: Mucous membr. moist/pink Chest Exam: Positive: Clear to auscultation, Normal air movement Heart Exam: Positive: Rate Normal, Normal S1, Normal S2; Negative: Murmurs Abdomen Exam: Positive: Normal bowel sounds (her abdomen does appear to be slightly distended but is not tight. The percussion note does have slight tympany especially in the right upper quadrant.), Soft; Negative: Tenderness, Hepatospenomegaly Extremity Exam: Negative: Edema Assessment /Plan Assessment This assessment and plan is limited to medical problems; she is currently under the care of a psychiatrist for her mental health problems. Problems (1) Abdominal distension (gaseous) Discussed With: Nurse, Patient Problem Specific Plan: Monitor Clinically Problem Text: I do not believe that there is a serious medical problem related to this abdominal distention related to gas. I prescribed simethicone on a when necessary basis to help should this symptom return. (2) Constipation Discussed With: Nurse, Patient Problem Specific Plan: Monitor Clinically Problem Text: She reports that she has been more constipated recently. That might in part relate to why she is having some abdominal distention and gassiness. I prescribed daily MiraLAX to help with this symptom. Plan/VTE VTE Prophylaxis Ordered?: No (ambulatory on the unit) VTE Exclusion Mechanical Proph: Low Risk for VTE VTE Exclusion Pharmacological: At Low Risk for VTE VS, I&O, 24H, Fishbone Vital Signs/I&O Vital Signs Date Time Temp Pulse Resp B/P (MAP) Pulse Ox O2 Delivery O2 Flow Rate FiO2 02/25/20 21:52 98.6 86 18 165/93 (117) 98 Room Air Ish Lerma MD Feb 26, 2020 01:51
[2020-02-26 06:32] VITALS: BP 135/72
[2020-02-26] MEDS: NICOTINE 21MG/24HR 1 EA TRANSDERMAL TD SCH (09:00)
[2020-02-26] MEDS: VITAMIN D 1,000 INTERNATIONAL UNITS TABLET PO SCH (10:07)
[2020-02-26] MEDS: LACTULOSE 20 GM/30 ML SYRUP UD PO SCH (10:07)
[2020-02-26] MEDS: FOLIC ACID 1 MG TAB PO SCH (10:08)
[2020-02-26] MEDS: MIRALAX *UNIT DOSE* 17GM PACKET PO SCH (10:08)
[2020-02-26] MEDS: FERROUS SULFATE 325MG TAB PO SCH (10:08)
[2020-02-26] MEDS: BENZTROPINE 1 MG TAB PO SCH ×2 (10:08→21:14)
[2020-02-26] MEDS: ACETAMINOPHEN TAB 650MG DOSE (2X325MG) PO PRN (10:10)
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
[2020-02-26 16:33] VITALS: BP 133/77
[2020-02-26] MEDS: AMANTADINE 100MG TABLET PO SCH (21:14)
[2020-02-26] MEDS: cloZAPine 25 MG TAB (S0136) PO SCH (21:14)
[2020-02-26] MEDS: DIVALPROEX 500 MG TAB PO SCH (21:15)
[2020-02-26] MEDS: RAMELTEON 8 MG TAB (ROZEREM) PO SCH (21:15)
[2020-02-27 06:04] VITALS: BP 138/86
[2020-02-27 08:27] LABS: BASO % 0.3 % (0.0-1.0); EOS # 0.1 10^3/uL (0.0-0.5); EOS % 1.9 % (0.0-3.0); HEMATOCRIT 36.9 % (36.0-47.0); HEMOGLOBIN 11.7 g/dl (12.0-15.5); MEAN CORPUSCULAR HEMOGLOBIN 29.4 pg (27.0-33.0); MEAN CORPUSCULAR HGB CONC 31.7 g/dl (32.0-36.5); MEAN CORPUSCULAR VOLUME 92.7 fl (80.0-96.0); MONO # 0.4 10^3/uL (0.0-0.8); MONO % 5.6 % (0.0-5.0); NEUTROPHILS # 3.8 10^3/uL (1.5-8.5); NEUTROPHILS % 51.7 % (36.0-66.0); PLATELET COUNT, AUTOMATED 311 10^3/uL (150-450); RED BLOOD COUNT 3.98 10^6/uL (4.00-5.40); WHITE BLOOD COUNT 7.4 10^3/uL (4.0-10.0)
[2020-02-27] MEDS: FERROUS SULFATE 325MG TAB PO SCH (08:50)
[2020-02-27] MEDS: LACTULOSE 20 GM/30 ML SYRUP UD PO SCH (08:50)
[2020-02-27] MEDS: FOLIC ACID 1 MG TAB PO SCH (08:50)
[2020-02-27] MEDS: VITAMIN D 1,000 INTERNATIONAL UNITS TABLET PO SCH (08:50)
[2020-02-27] MEDS: MIRALAX *UNIT DOSE* 17GM PACKET PO SCH (08:50)
[2020-02-27] MEDS: BENZTROPINE 1 MG TAB PO SCH ×2 (08:50→21:31)
[2020-02-27] MEDS: NICOTINE 21MG/24HR 1 EA TRANSDERMAL TD SCH (09:00)
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
[2020-02-27 16:54] VITALS: BP 141/66
[2020-02-27] MEDS: cloZAPine 25 MG TAB (S0136) PO SCH (21:31)
[2020-02-27] MEDS: DIVALPROEX 500 MG TAB PO SCH (21:31)
[2020-02-27] MEDS: RAMELTEON 8 MG TAB (ROZEREM) PO SCH (21:31)
[2020-02-27] MEDS: AMANTADINE 100MG TABLET PO SCH (21:31)
[2020-02-28] MEDS: MIRALAX *UNIT DOSE* 17GM PACKET PO SCH (08:17)
[2020-02-28] MEDS: NICOTINE 21MG/24HR 1 EA TRANSDERMAL TD SCH (08:17)
[2020-02-28] MEDS: BENZTROPINE 1 MG TAB PO SCH (08:19)
[2020-02-28] MEDS: FOLIC ACID 1 MG TAB PO SCH (08:19)
[2020-02-28] MEDS: LACTULOSE 20 GM/30 ML SYRUP UD PO SCH (08:19)
[2020-02-28] MEDS: FERROUS SULFATE 325MG TAB PO SCH (08:19)
[2020-02-28] MEDS: VITAMIN D 1,000 INTERNATIONAL UNITS TABLET PO SCH (08:19)
[2020-02-28] MEDS ORDERED: PEG1POW PO (09:25)
[2020-02-28] MEDS ORDERED: SIME80TA PO (09:25)
[2020-02-28] MEDS ORDERED: LACT20EL PO (09:25)
[2020-02-28] MEDS ORDERED: RAME8TAB2 PO (09:25)
[2020-02-28] MEDS ORDERED: DEPA1TAB3 PO (09:25)
[2020-02-28] MEDS ORDERED: SODIGEL (09:25)
[2020-02-28] MEDS ORDERED: CLOZ25TA3 PO (09:25)
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
[2020-03-02] MEDS ORDERED: Lab (08:24)
== END 2020-02-28 11:05 | disposition home or self-care (01) | DRG 750 ==
LOC: EDBD 12:07 → M ED 12:07 → M ED INP 02-03 17:42 → M PSY 02-03 19:34
PROVIDERS: ADMIT Psychiatry & Neurology Addiction Medicine; ATTEND Psychiatry & Neurology Psychiatry
DX: F25.0 Schizoaffective disorder, bipolar type (principal); Z78.1 Physical restraint status; K21.9 Gastro-esophageal reflux disease without esophagitis; R56.9 Unspecified convulsions; J45.909 Unspecified asthma, uncomplicated; F17.210 Nicotine dependence, cigarettes, uncomplicated; Z79.899 Other long term (current) drug therapy; Z88.0 Allergy status to penicillin; Z88.8 Allergy status to other drugs, medicaments and biological substances; F12.10 Cannabis abuse, uncomplicated; K59.00 Constipation, unspecified; Z20.828 Contact with and (suspected) exposure to other viral communicable diseases

== ENCOUNTER 2020-04-09 11:38 | Emergency (ER) | payer MEDICAID, OTHER ==
[~2020-04-09] VITALS: Ht 162.6 cm; Wt 95.0 kg
[~2020-04-09 11:38] MED LIST changes: +CLOZ25TA3 PO; +LACT20EL PO; +Lab; +PEG1POW PO; +RAME8TAB2 PO; +SIME80CH5 PO; +SODIGEL
--- OUTSIDE RECORDS SUMMARY | 2020-04-09 11:47 | CCD ---
Author Author Estella Sultana Organization Unknown Address [address] [address] Phone Care Team Providers Care Vessel Scrapper Name Role Phone Meliza Sultana PCP Allergies, Adverse Reactions, Alerts Concept Allergy Name Reaction Severity Onset Date Status Documentation Date Phone Number Npid Taxonomy Code Taxonomy Desc Author Last Name Author Michele rst Name Concept Type [id number] nkda Active 01/10/2018 RXNORM Problem List Concept Problem Description Status Start Date Created Date Resolv ed Date Snomed Code F25.9 Schizoaffective Disorder Active 12/18/2017 12/18/2017 Z72.0 Tobacco Use Disorder, Mild Active 03/04/2020 Medications Rx Norm Medication Route Route Concept Start Date Stop Date Dosage Aniket quency Duration Formula Strength Dosage Form Dosage Form Code Dosage Description Medication Id Account Npid Author First Name Author Last Name Taxonomy Code Taxonomy Desc Phone Number [id number] prazosin 08/27/2019 1 mg capsule 30068 11 [id number] Ashley Fernandez [id number] Nurse Practitioner [id number] [id number] trazodone 11/04/2019 at bedtime 50 mg tablet as needed 34740 [phone] [id number] Ashley Fernandez [id number] Nurse Practitioner [id number] [phone] [id number] amantadine HCl 06/05/2019 03/30/2020 30 100 mg caps ule 99058 469463 [id number] Ashley Fernandez [id number] Nurse Practitioner [id number] [id number] benztropine 07/23/2019 03/30/2020 30 1 mg tablet 74503 220390 [id number] Ashley Fernandez [id number] Nurse Practitioner [phone] [id number] Haldol Decanoate intramuscularly 10/10/20182020 every four weeks 28 100 mg/mL solution 94822 [id number] Ashley del rio [id number] Nurse Practitioner [phone] Social History Social History Element Description Concept Effective Date Smoking Status Unknown if ever smoked [id number] Immunizations No Data in Section Vital Signs No Data in Section Procedures Date Concept Id Description Targeted Site Concept Targeted Site Concept Type 03/03/2020 14880 Brief Individual Psychotherapy - 30 min CPT Patient has no history of implantable de vices Encounters Encounter Start Date End Date Encounter Type Description Diagnosis Di agnosis Desc Location Author First Name Author Last Name Npid Taxonomy Cod e Taxonomy Desc Phone Number Location Addr1 Location Addr2 Location [facility] Location Sta te Location Zip [id number] 03/03/2020 03/03/2020 15767 Brief Individual Psychoth erapy - 30 min F25.9 Schizoaffective disorder, unspecified [facility] [phone] [id number] Museum Host/Hostess [phone] [address], Rohith [address] [place] [id number] Plan of Treatment No Data in Section Lab Results No Data in Section Instructions No Data in Section Insurance Providers Insurance Id Policy Effective Date Policy Thru Date Serious [place] N ilda [id number] [address]
--- OUTSIDE RECORDS SUMMARY | 2020-04-09 11:47 | CCD ---
Author Author [facility] Organization [facility] Address Unknown Phone Unavailable Care Team Providers Care Gold Wheel Blocker And Polisher Name Role Phone Lauren Zmabrano Unavailable PROBLEMS Type Condition ICD9-CM Code [id number] Code Onset Dates Condition S tatus SNOMED Code Notes Problem Paranoid schizophrenia, chronic condition F20.0 Active 64009218 Problem Candidiasis of breast B37.89 Active 09212695 Problem Vitamin D deficiency E55.9 Active 87959154 Problem Obesity E66.9 Active 440214129 Problem Tinea versicolor B36.0 Active 65367594 Problem Obesity (BMI 30-39.9) 278.00 Active 007975591 Problem Infrequent menses N91.5 Active 51019604 Problem Moderate dysplasia of cervix (RBEA II) N87.1 Ac tive 631107859 Problem History of anemia Z86.2 Active 692527799 Problem Paranoid schizophrenia F20.0 Active 24663435 Problem Class 1 obesity due to exces s calories without serious comorbidity in adult, unspecified BMI E66.09 Active 569559622 Problem Irregular menses N92.6 Active 54727220 Problem Night terrors, adult F51.4 Active 77067613 Problem Body mass index 33.0-33.9, adult Z68.33 Active 900030509 Problem Tobacco dependence F17.200 Active 96675314 Problem Pica in adults F50.89 Active 75950911 Problem Cigarette nicotine dependence without complication F17.210 Active 12919006 Problem Cigarette nicotine dependence with nicotine-induced di sorder F17.219 Active 73011166 ALLERGIES Allergen (clinical drug ingredient) Drug/Non Drug Allergy do cumented on EMR Reaction Allergy Type Onset Date Status paliperidone Invega([facility] Code:[id number]) facial droopness Drug All ergy Active Penicillin (For Allergies Use Only) Unsure of Reaction Demarcus perez Allergy Active ENCOUNTERS from 1990 to 2020-03-07 Encounter Location Date Provider Diagnosis [facility] Gricelda [address] [place] [phone] Feb, Lauren Zambrano IMMUNIZATIONS No Information SOCIAL HISTORY Tobacco Use: Social History Observation Description Date Details (start date - stop date) Current Smoker Sex Assigned At : Social History Observation Description Sex Assigned At Unknown Audit Question Answer Notes Total Score: 0 Interpretation: Alcohol Education Language: Question Answer Notes Languages spoken: Bangladeshi Sexual Hx: Question Answer Notes Had sex in the last 12 months (vaginal, oral, or anal)? Yes LMP: 10/18/2018 Have you ever had an STD? Yes Prevention Strategies discussed: Condoms with Men only Use protection? Yes Other? Yes Herpes? No Syphilis? No GC? No Chlamydia? Yes How often? Some of the time Drug and Alcohol Question Answer Notes Total Score: 0 Interpretation: No problems reported Tobacco Use: Question Answer Notes Are you a: current smoker Patient counseled on the dangers of tobacco use and urged to quit: 10/22/2018 How many cigarettes a day do you smoke? 11-20 Are you interested in quitting? Thinking about quitting Counseled the patient on smoking cessation, education provid ed 01/24/2020 REASON FOR REFERRAL No Information VITAL SIGNS No information MEDICATIONS Medication SIG (Take, Route, Frequency, Duration) Notes Start Da te End Date Status Trazodone HCl 50 MG TAKE ONE TABLET BY MOUTH AT BEDTIME Oral for 30 Active Haloperidol 5 MG 3 tabs twice a day Active Haloperidol Decanoate 100 MG/ML INJECT 100 MG INTRAMUS CULARLY SINGLE DOSE DIRECTED EVERY MONTH Intramuscular for 30 Active Folic Acid 1 MG TAKE ONE TABLET BY MOUTH EVERY DAY orally Daily for 30 days Active Vitamin D 25 MCG (1000 UT) 1 tablet Orally Once a day for 30 day (s) Aug, Active Amantadine HCl 100 MG 1 capsule Orally Once a day for 30 day(s) Active Mapap 325 MG TAKE TWO TABLETS BY MOUTH FO UR TIMES DAILY NEEDED FOR UP TO 10 DAYS Oral every 4 hrs for 4 days Active Nicotrol 10 MG 1 cartridge as needed( mdd o f 4 cartridges) Inhalation Daily PRN for 30 Days 10 Jethro, 2020 Active Prazosin HCl 1 MG 1 capsule at bedtime Orally Once a day for 30 day(s ) Active Benztropine Mesylate 1 MG 1 tablet Orally bid Active Cefdinir 300 MG Oral for 7 Active Colace 100 MG 1 capsule as needed Orally Once a day for 30 day(s) Active Ferrous Sulfate 325 (65 Fe) MG 1 tablet orally Twice a day for 30 Day s Active Sertraline HCl 50 MG TAKE ONE TABLET BY MOUTH ONCE DAILY Oral for 30 Not-Taking PROCEDURES No Information RESULTS No Results REASON FOR VISIT Vitamin D 25 MCG (1000 UT) Tablet MEDICAL (GENERAL) HISTORY Type Description Date Medical History paranoid schizophrenia, psychosis Medical History LGSIL pap 05/2013, Medical History Tobacco Use Medical History Vitamin D Deficiency Medical History Tinea Versicolor Medical History Irregular Menses Medical History Anemia Surgical History Oral surgery - 5 teeth removed 10/2013 Surgical History colposcopy pt can not remember where or when Hospitalization History Hallucinations 2019 Goals Section No Information Health Concerns No Information MEDICAL EQUIPMENT No Information MENTAL STATUS No Information FUNCTIONAL STATUS No Information ASSESSMENTS No Information PLAN OF TREATMENT Medication Medication Name Sig Start Date Stop Date Vitamin D 25 MCG (1000 UT) 1 tablet Orally Once a day for 30 day(s) Aug, Colace 100 MG 1 capsule as needed Orally Once a day for 30 day (s) Next Appt Details Provider Name:Javan Odom, 2020-03-10 08:30:00 AM, [address] [facility], [place], [address], Insurance Providers Payer Name Payer Address Payer Phone Insured Name Patient Relati onship to Insured Coverage Start Date Coverage End Date FORMERLY [facility] [id number] [facility] [phone] EVELIO KUNZ self
--- OUTSIDE RECORDS SUMMARY | 2020-04-09 11:47 | CCD ---
Author Author [facility] Organization [facility] Address Unknown Phone Unavailable Care Team Providers Care Apprentice Plant Attendant Name Role Phone Gilberto Jauregui Unavailable PROBLEMS Type Condition ICD9-CM Code EGW89-KL Code Onset Dates Condition S tatus SNOMED Code Notes Problem Paranoid schizophrenia, chronic condition F20.0 Active 06571204 Problem Candidiasis of breast B37.89 Active 50461334 Problem Vitamin D deficiency E55.9 Active 79250419 Problem Obesity E66.9 Active 645461538 Problem Tinea versicolor B36.0 Active 99199072 Problem Obesity (BMI 30-39.9) 278.00 Active 058902147 Problem Infrequent menses N91.5 Active 74981320 Problem 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 Ac tive 300603719 Problem History of anemia Z86.2 Active 235377828 Problem Paranoid schizophrenia F20.0 Active 75588580 Problem Class 1 obesity due to exces s calories without serious comorbidity in adult, unspecified BMI E66.09 Active 732190622 Problem Irregular menses N92.6 Active 84115199 Problem Night terrors, adult F51.4 Active 20847409 Problem Body mass index 33.0-33.9, adult Z68.33 Active 102000320 Problem Tobacco dependence F17.200 Active 61152251 Problem Pica in adults F50.89 Active 66106253 Problem Cigarette nicotine dependence without complication F17.210 Active 64967316 Problem Cigarette nicotine dependence with nicotine-induced di sorder F17.219 Active 73206441 ALLERGIES Allergen (clinical drug ingredient) Drug/Non Drug Allergy do cumented on EMR Reaction Allergy Type Onset Date Status paliperidone Invega([facility] Code:[address]-48) facial droopness Drug All ergy Active Penicillin (For Allergies Use Only) Unsure of Reaction Demarcus perez Allergy Active ENCOUNTERS from 1990 to 2020-02-17 Encounter Location Date Provider Diagnosis [facility] [address] [place] [address] Dec Gilberto Jauregui Difficulty urinating R39.198 IMMUNIZATIONS No Information SOCIAL HISTORY Tobacco Use: Social History Observation Description Date Details (start date - stop date) Current Smoker Sex Assigned At : Social History Observation Description Sex Assigned At Unknown Audit Question Answer Notes Total Score: 0 Interpretation: Alcohol Education Language: Question Answer Notes Languages spoken: Danish Sexual Hx: Question Answer Notes Had sex [...] REASON FOR REFERRAL No Information VITAL SIGNS Weight 204.4 lbs Dec, Height 64 in Dec, BMI 35.08 kg/m2 Dec, Heart Rate 99 /min Dec, Respiratory Rate 18 /min Dec, Temperature 97.4 degrees Fahrenheit Dec, Oximetry 99%ra Dec, Blood pressure systolic 115 mm Hg Dec, Blood pressure diastolic 64 manual mm Hg Dec, MEDICATIONS Medication SIG (Take, Route, Frequency, Duration) Notes Start Da te End Date Status Haloperidol Decanoate 100 MG/ML INJECT 100 MG INTRAMUS CULARLY SINGLE DOSE DIRECTED EVERY MONTH Intramuscular for 30 Active Ferrous Sulfate 325 (65 Fe) MG 1 tablet orally Twice a day for 30 Day s Active Colace 100 MG 1 capsule as needed Orally Once a day for 30 day(s) Active Nicotrol 10 MG 1 cartridge as needed( mdd o f 4 cartridges) Inhalation Daily PRN for 30 Days Mar, Active Mapap 325 MG TAKE TWO TABLETS BY MOUTH FO UR TIMES DAILY NEEDED FOR UP TO 10 DAYS Oral every 4 hrs for 4 days Active Benztropine Mesylate 1 MG 1 tablet Orally bid Active Folic Acid 1 MG TAKE ONE TABLET BY MOUTH EVERY DAY orally Daily for 30 days Active Vitamin D 25 MCG (1000 UT) 1 tablet Orally Once a day for 30 day (s) Aug, Active Sertraline HCl 50 MG TAKE ONE TABLET BY MOUTH ONCE DAILY Oral for 30 Not-Taking Cefdinir 300 MG Oral for 7 Active Prazosin HCl 1 MG 1 capsule at bedtime Orally Once a day for 30 day(s ) Active Amantadine HCl 100 MG 1 capsule Orally Once a day for 30 day(s) Active Haloperidol 5 MG 3 tabs twice a day Active Trazodone HCl 50 MG TAKE ONE TABLET BY MOUTH AT BEDTIME Oral for 30 Active PROCEDURES Procedure Date Ordered Result Body Site uro PVR (Post Voiding Residual) Bladder Scan 2019-12-25 N/A RESULTS Component Value Reference Range UA URINALYSIS Reviewed date:12/26/2019 08:04:37 Interpretation: Performing Lab:[facility] [address] [facility] [address] , ,[facility]01 URINE CULTURE Reviewed date:12/26/2019 13:11:57 Interpretation: Performing Lab:[facility] [address] [facility] [address] , ,[facility]01 REASON FOR VISIT URINARY RETENTION WITH INCOMPLETE BLADDER EMPTYING MEDICAL (GENERAL) HISTORY Type Description Date Medical [...] No Information FUNCTIONAL STATUS No Information ASSESSMENTS Encounter Date Diagnosis Assessment Notes Treatment Notes Treatm ent Clinical Notes Dec, Difficulty urinating (ICD-10 - R39.198) Will send UA and culture today. PVR today is 32 cc. Discussed she is emptying her bladder. She should cut back on bladder irritants, particularly her soda. She is not overly bothered by her symptoms to try any medications. She can f/u prn. PLAN OF TREATMENT Treatment Notes Assessment Notes Clinical Notes Difficulty urinating Will send UA and cu lture today.PVR today is 32 cc.Discussed she is emptying her bladder. She should cut back on bladder irritants, particularly her soda. She is not overly bothered by her symptoms to try any medications.She can f/u prn. Next Appt Details prn Reason: Provider Name:Lauren Zambrano, 2020-02-21 0 3:30:00 PM, [address] [place] [address], [id number], Provider Name:Juju Barrientos, 2020-04-02 01:40:00 PM, [address] [place] [address], [phone], Insurance Providers Payer Name Payer Address Payer Phone Insured Name Patient Relati onship to Insured Coverage Start Date Coverage End Date [facility] [address] [facility] [id number] EVELIO KUNZ self
--- OUTSIDE RECORDS SUMMARY | 2020-04-09 11:47 | CCD | Continuity of Care Document ---
Author Author [facility] Address [address] [place] [address] Phone Care Team Providers Care Bus System Operator Name Role Phone ROLLY ARRIAGA PCP Allergies, Adverse Reactions, Alerts No allergy information available. Medications No medication information available. Problems No problem information available. Procedures No procedure information available. Relevant Diagnostic Tests and/or Laboratory Data Laboratory Results Test Date/Time Result Interpretation Reference Range Result Co mment Performing Site White Blood Count March 04, 2020 5:07pm 8.3 4.0-1 0.0 [facility] Main Lab, [address] [place] [address] Red Blood Count March 04, 2020 5:07pm 3.48 4.00-5. 50 [facility], [address] [facility] [address] Hemoglobin March 04, 2020 5:07pm 10.5 12.0-16.0 [facility], 4 [facility] [address] Hematocrit March 04, 2020 5:07pm 31.7 36.0-48.8 [facility], 4 [facility] [address] Mean Corpuscular Volume March 04, 2020 5:07pm 91.1 80-96 [facility] Lab, 4 [facility] [address] Mean Corpuscular Hemoglobin March 04, 2020 5:07pm 30.2 27.0-31.0 [facility], 4 [facility] [address] Mean Corpuscular Hgb Concent Diff March 04, 2020 5:07pm 33.1 32.0-36.0 [facility], 4 [facility] [address] Red Cell Distribution Width March 04, 2020 5:07pm 13.3 10.0-14.5 [facility], 4 [facility] [address] Platelet Count March 04, 2020 5:07pm 285 172-450 [facility] Lab, [address] [place] [address] Mean Platelet Volume March 04, 2020 5:07pm 9.3 9. 0-13.0 [facility], 4 [facility] [address] Granulocytes % (Auto) March 04, 2020 5:07pm 52.0 5 0-80.0 [facility], 4 [facility] [address] Immature Granulocytes % March 04, 2020 5:07pm 0.2 0.0-0.2 [facility], 4 [facility] [address] Lymphocytes % March 04, 2020 5:07pm 37.0 25.0-50.0 [facility], 4 [facility] [address] Monocytes % March 04, 2020 5:07pm 8.8 2.0-10.0 [facility], 4 [facility] [address] Eosinophils % March 04, 2020 5:07pm 1.8 0-5.0 [facility], 4 [facility] [address] Basophils % March 04, 2020 5:07pm 0.2 0.0-2.0 [facility] Lab, 4 [facility] [address] Granulocytes # March 04, 2020 5:07pm 4.3 2.0-8.00 [facility] Lab, 4 [facility] [address] Immature Granulocytes # March 04, 2020 5:07pm 0.0 0.0-0.2 [facility], 4 [facility] [address] Lymphocytes # March 04, 2020 5:07pm 3.1 1.0-5.0 [facility] Lab, 4 [facility] [address] Monocytes # March 04, 2020 5:07pm 0.7 0.10-1.20 [facility] Lab, 4 [facility] [address] Eosinophils # March 04, 2020 5:07pm 0.2 0.0-0.5 [facility], 4 [facility] [address] Basophils # March 04, 2020 5:07pm 0.0 0.0-0.2 [facility], 4 [facility] [address] Prothrombin Time March 04, 2020 5:07pm 10.2 9.1-11 .6 [facility], 4 [facility] [address] INR International Normalized Ratio March 04, 2020 5:07pm 0.98 0.87-1.06 [facility], 4 [facility] [address] Partial Thromboplastin Time - Barton March 04, 2020 5:07pm 25.8 21.2-27.3 [facility], 4 [facility] [address] Urine Color March 04, 2020 5:25pm YELLOW [facility], 4 [facility] [address] Urine Appearance March 04, 2020 5:25pm CLEAR [facility], 4 [facility] [address] Urine Glucose March 04, 2020 5:25pm NEGATIVE NEGATIVE [facility], 4 [facility] [address] Urine Bilirubin March 04, 2020 5:25pm NEGATIVE NEGATIV E [facility] Lab, 4 [facility] [address] Urine Ketones March 04, 2020 5:25pm NEGATIVE NEGATIVE [facility], 4 [facility] [address] Specific [place] March 04, 2020 5:25pm >= 1.030 1.001- 1.035 [facility] Lab, 4 [facility] [address] Urine Blood March 04, 2020 5:25pm TRACE NEGATIVE [facility], 4 [facility] [address] Urine pH March 04, 2020 5:25pm 7.0 5.0-9.0 [facility], 4 [facility] [address] Urine Protein March 04, 2020 5:25pm 1+(30) NEGATIVE [facility], 4 [facility] [address] Urine Urobilinogen March 04, 2020 5:25pm NORMAL(0.2-1) 0-1 [facility], 4 [facility] [address] Urine Nitrite March 04, 2020 5:25pm NEGATIVE NEGATIVE [facility], 4 [facility] [address] Urine Leukocyte Esterase March 04, 2020 5:25pm NEGATIVE NEGATIVE [facility], 4 [facility] [address] Urine Microscopic RBC March 04, 2020 5:25pm 3-5 0 -3 [facility], 4 [facility] [address] Urine Microscopic WBC March 04, 2020 5:25pm 1-3 0 -5 [facility], 4 [facility] [address] Urine Epithelial Cells March 04, 2020 5:25pm 1+ 0 [facility], 4 [facility] [address] Urine Bacteria March 04, 2020 5:25pm 1+ NONE SEE N [facility] Lab, 4 [facility] [address] Urine Mucus March 04, 2020 5:25pm 2+ NEGATIVE [facility], 4 [facility] [address] Glucose Level March 04, 2020 5:07pm 89 74-106 [facility], 4 [facility] [address] Blood Urea Nitrogen March 04, 2020 5:07pm 9 7-1 8 [facility] Lab, 4 [facility] [address] Creatinine March 04, 2020 5:07pm 0.8 0.6-1.0 [facility], 4 [facility] [address] Sodium Level March 04, 2020 5:07pm 140 136-145 [facility], 4 [facility] [address] Potassium Level March 04, 2020 5:07pm 4.2 3.5-5.1 [facility], 4 [facility] [address] Chloride Level March 04, 2020 5:07pm 102 98-107 [facility] Lab, 4 [facility] [address] Carbon Dioxide Level March 04, 2020 5:07pm 31 21 -32 [facility], 4 [facility] [address] Calcium Level March 04, 2020 5:07pm 9.1 8.5-10.1 [facility], 4 [facility] [address] Anion Gap March 04, 2020 5:07pm 7.0 5-12 [facility], 4 [facility] [address] Estimated GFR (MDRD) March 04, 2020 5:07pm 85 GFR IS CALCULATED IN mL/min/1.73m2 NORMAL FUNCTION: >90MILDLY DECREASED: 60-89MILDY TO MODERATELY DECREASED: 45-59 MODERATELY TO SEVERELY DECREASED: 30-44SEVERELY DECREASED: 15-29RENAL FAILURE: <15 [facility] Lab, [address] [place] [address] Aspartate Amino Transf (AST/SGOT) March 04, 2020 5:07pm 22 15-37 [facility] Lab, [address] [place] [address] Alanine Aminotransferase (ALT/SGPT) March 04, 2020 5:07pm 40 12-78 [facility], 4 [facility] [address] Alkaline Phosphatase March 04, 2020 5:07pm 39 46 -116 [facility], 4 [facility] [address] Total Bilirubin March 04, 2020 5:07pm 0.2 0.2-1.0 [facility], 4 [facility] [address] Total Protein March 04, 2020 5:07pm 7.3 6.4-8.2 [facility], 4 [facility] [address] Albumin March 04, 2020 5:07pm 3.5 3.4-5.0 [facility], 4 [facility] [address] Lipase March 04, 2020 5:07pm 32 73-393 [facility] Lab, 4 [facility] [address] Magnesium Level March 04, 2020 5:07pm 1.9 1.8-2.4 [facility] Main Lab, [address] [place] [id number] HIV (1&2) Antibody Screen March 04, 2020 5:07pm NON-REACTIVE [facility] Main Lab, 4 [facility] [address] HIV P24 Antigen March 04, 2020 5:07pm NON-REACTIVE [facility] Main Lab, [address] [place] [id number] Health Concerns No known health concerns documented Chief Complaint and Reason for Visit Reason for Visit NAUSEA,VOMITING Encounters Encounter Location(s) Arrival/Admit Date Discharge/Depart Date Provider(s) Departed [facility] March 04, 2020 4:24p m March 04, 2020 6:40pm GHISLAINE GREGORY @ Assessments No Assessments Information Available Functional Status No Functional Status information available Goals No Goals Information Available Immunizations No Immunization Information Available Mental Status No Mental Status Information Available Medical Equipment No Medical Equipment Information available Insurance Providers Guarantor EVELIO KUNZ Address [address] [place], [place] [id number] Contact Info. Home Phone: Payer Policy Id Coverage Id Subscriber's Name Subscriber Id Effect [id number] Date Expiration Date [employer] MEDICA[employer] [id number] EVELIO KUNZ 2019 2020 Plan of Treatment Future Tests Future scheduled test information is unavailable Pending Tests Test Name Date ordered HEP A AB, IGM March 04, 2020 5:07pm HEP B SURFACE ANTIGEN SCREEN March 04, 2020 5:07p m HEP B CORE AB, IGM March 04, 2020 5:07pm HCV ANTIBODY March 04, 2020 5:07pm Future Visits Future appointment information is unavailable Referrals to Other Providers Referral information is unavailable Future Procedures Future procedure information is unavailable Future Medications Future medication information is unavailable Patient Instructions Patient instructions are unavailable Social History Assigned Sex Female Vital Signs No vital signs result information available.
--- OUTSIDE RECORDS SUMMARY | 2020-04-09 11:47 | CCD ---
Author Author Estella Fernandez [facility] Organization Unknown Address [address] [place] [phone] Phone Care Team Providers Care Windlasser Name Role Phone Ashley Fernandez PCP Allergies, Adverse Reactions, Alerts Concept Allergy Name Reaction Severity Onset Date Status Documentation Date Phone Number Npid Taxonomy Code Taxonomy Desc Author Last Name Author Michele rst Name Concept Type 388603 nkda Active 01/10/2018 RXNORM Problem List Concept Problem Description Status Start Date Created Date Resolv ed Date Snomed Code F25.9 Schizoaffective Disorder Active 12/18/2017 12/18/2017 Medications Rx Norm Medication Route Route Concept Start Date Stop Date Dosage Aniket quency Duration Formula Strength Dosage Form Dosage Form Code Dosage Description Medication Id Account Npid Author First Name Author Last Name Taxonomy Code Taxonomy Desc Phone Number [id number] prazosin 08/27/2019 1 mg capsule 43537 11 0431 [id number] Ashley Fernandez [id number] Nurse Practitioner [phone] 949995 trazodone 11/04/2019 at bedtime 50 mg tablet as needed 68900 897476 [id number] Ashley Fernandze [id number] Nurse Practitioner [id number] 9810 827489 amantadine HCl 06/05/2019 03/30/2020 30 100 mg caps ule 14736 580640 [id number] Ashley Fernandez [id number] Nurse Practitioner [id number] 6217 828118 benztropine 07/23/2019 03/30/2020 30 1 mg tablet 17319 726303 [id number] Ashley Fernandez [id number] Nurse Practitioner [phone] 155599 Clozaril by mouth S58404 03/10/2020 05/18/2020 at bedtime 7 25 mg tablet 66856 841144 [id number] Ashley Fernandez [id number] Nurse Pra ctitioner [phone] 8036107 Haldol Decanoate intramuscularly 10/10/20182020 every four weeks 28 100 mg/mL solution 16749 202504 [id number] Ashleyvivian del rio [id number] Nurse Practitioner [phone] Social History Social History Element Description Concept Effective Date Smoking Status Unknown if ever smoked [id number] Immunizations No Data in Section Vital Signs No Data in Section Procedures Date Concept Id Description Targeted Site Concept Targeted Site Concept Type 03/24/2020 92726 E/M Level 3 - Established Patient CPT Patient has no history of implantable de vices Encounters Encounter Start Date End Date Encounter Type Description Diagnosis Di agnosis Desc Location Author First Name Author Last Name Npid Taxonomy Cod e Taxonomy Desc Phone Number Location Addr1 Location Addr2 Location [facility] Location Sta te Location [facility] [id number] 03/24/2020 03/24/2020 73421 E/M Level 3 - Established [place] F25.9 Schizoaffective disorder, unspecified [facility] Jim Ashley [phone] [id number] Nurse Practitioner [phone] [address] [address] Plan of Treatment No Data in Section Lab Results No Data in Section Instructions No Data in Section Insurance Providers Insurance Id Policy Effective Date Policy Thru Date Company Larry g[employer] [id number] 2017 [id number]
--- OUTSIDE RECORDS SUMMARY | 2020-04-09 11:47 | CCD | Summary of Care ---
Author Author [facility] Organization [facility] Address Unknown Phone Unavailable Care Team Providers Care Electrical Construction Project Manager Name Role Phone Branden Dalton MD PCP Encounter Details Care Team Description Date Type Department 01/31/[address] [facility] TRANSFER CE NTER Encounter [address] [place] [address] Allergies Comments Active Allergy Reactions Severity Noted Date Penicillins 09/11/2016 documented as of this encounter (statuses as of 02/15/2020) Medications End Date Status Medication Sig Dispensed Refills Start Date Active benzocaine (ORAJEL) 20 % Please apply 1 each 0 GEL to affected 9 painful area of mouth up to four times daily documented as of this encounter (statuses as of 02/15/2020) Active Problems Problem Noted Date Schizoaffective disorder 04/04/2018 PTSD (post-traumatic stress disorder) 04/04/2018 Anxiety 04/04/2018 Depression 04/04/2018 Schizoaffective disorder, bipolar type 10/05/2016 Suicidal ideation 09/11/2016 documented as of this encounter (statuses as of 02/15/2020) Social History Date Tobacco Use Types Packs/Day Years Used Never Assessed Sex Assigned at Date Recorded Not on file Date Recorded COVID-19 Exposure Response 01/31/2020 6:18 PM EST In the last month, have you been in contact with No / Unsure someone who was confirmed or suspected to have Coronavirus / COVID-19? documented as of this encounter Last Filed Vital Signs Not on filedocumented in this encounter Plan of Treatment Health Maintenance Due Date Last Done Comments MMR Vaccines (1 of - 1991 Standard series) Varicella Vaccines (1991 2 - 2-dose childhood series) DTaP,Tdap,and Td Vaccines 1997 (1 - Tdap) Cervical Cancer Screening 2011 3 years Influenza Vaccine 12/19/2019 Pneumococcal Vaccine: 65+ 2055 Years (1 of 1 - PPSV23) HIV Screening Completed 09/11/2016 HIB Vaccines Aged Out No longer eligible based on patient's age to complete this topic Hepatitis A Vaccines Aged Out No longer eligibl e based on patient's age to complete this topic Hepatitis B Vaccines Aged Out No longer eligibl e based on patient's age to complete this topic IPV Vaccines Aged Out No longer eligible based on patient's age to complete this topic Pneumococcal Vaccine: Aged Out No longer eligib le based on patient's age to Pediatrics (0 to 5 Years) complete this topic and At-Risk Patients (6 to 64 Years) documented as of this encounter Results Not on filedocumented in this encounter
--- OUTSIDE RECORDS SUMMARY | 2020-04-09 11:47 | CCD ---
Author Author JimEstelal del rio Ashley Organization Unknown Address [address] [place] [address] Phone Care Team Providers Care Pneumatic Riveter Name Role Phone Ashley Fernandez PCP Allergies, Adverse Reactions, Alerts Concept Allergy Name Reaction Severity Onset Date Status Documentation Date Phone Number Npid Taxonomy Code Taxonomy Desc Author Last Name Author Michele rst Name Concept Type [id number] nkda Active 01/10/2018 RXNORM Problem List Concept [...] Name Taxonomy Code Taxonomy Desc Phone Number [id number] prazosin 08/27/2019 1 mg capsule 16360 11 [id number] Ashley Fernandez [id number] Nurse Practitioner [id number] 523487 trazodone 11/04/2019 at bedtime 50 mg tablet as needed 93809 468842 [id number] Ashley Fernandez [id number] Nurse Practitioner 712037 3104 859395 Clozaril by mouth [id number] 03/10/2020 05/18/2020 at bedtime 7 25 mg tablet 37325 470343 [id number] Ashley Fernandez [id number] Nurse Pra ctitioner [phone] 9334809 Haldol Decanoate intramuscularly 10/10/20182020 every four weeks 28 100 mg/mL solution 41527 360706 [id number] Ashley del rio [id number] Nurse Practitioner [phone] Social History Social History Element Description Concept Effective Date Smoking Status Unknown if ever smoked [id number] Immunizations No Data in Section Vital Signs Encounter Date Height Ins Weight Lbs Bmi Bp Systolic Bp Diastoli c Oxygen Saturation Respiration Rate Pulse Rate Body Temp Head Circumference Heigh t Lying 04/07/2020 0.00 0.00 0.00 0 0 0.00 0 0 0.00 0.0 0.0 0 Procedures Date Concept Id Description Targeted Site Concept Targeted Site Concept Type 04/07/2020 29346 E/M Level 3 - Established Patient CPT Patient has no history of implantable de vices Encounters Encounter Start Date End Date Encounter Type Description Diagnosis Di agnosis Desc Location Author First Name Author Last Name Npid Taxonomy Cod e Taxonomy Desc Phone Number Location Addr1 Location Addr2 Location City Location Sta te Location Zip [id number] 04/07/2020 04/07/2020 30905 E/M Level 3 - Established [place] F25.9 Schizoaffective disorder, unspecified [facility] Ashley [phone] [id number] Nurse Practitioner [phone] [address] [address] Plan of Treatment No Data in Section Lab Results No Data in Section Instructions No Data in Section Functional Cognitive Status No Data in Section Insurance Providers Insurance Id Policy Effective Date Policy Thru Date Company N ilda [id number] [address]
--- OUTSIDE RECORDS SUMMARY | 2020-04-09 11:47 | CCD ---
Author Author Estella Youssef Organization Unknown Address [address] [place] [address] Phone Care Team Providers Care Heating Worker Name Role Phone Sharla Youssef PCP Allergies, Adverse Reactions, Alerts Concept Allergy Name Reaction Severity Onset Date Status Documentation Date Phone Number Npid Taxonomy Code Taxonomy Desc Author Last Name Author Fi rst Name Concept Type 385957 nkda Active 01/10/2018 RXNORM Problem List Concept [...] Name Taxonomy Code Taxonomy Desc Phone Number 785017 prazosin 08/27/2019 1 mg capsule 84252 11 0431 [phone] Ashley Fernandez [id number] Nurse Practitioner [phone] 398334 trazodone 11/04/2019 at bedtime 50 mg tablet as needed 44470 313810 [id number] Ashley Fernandez [id number] Nurse Practitioner 583363 5245 990958 Clozaril by mouth [id number] 03/10/2020 05/18/2020 at bedtime 7 25 mg tablet 64738 820144 [id number] Ashley Fernandez [id number] Nurse Pra ctitioner [phone] 9562472 Haldol Decanoate intramuscularly 10/10/20182020 every four weeks 28 100 mg/mL solution 24130 559955 [id number] Ashley del rio [id number] Nurse Practitioner [id number] Social History Social History Element Description Concept Effective Date Smoking Status Unknown if ever smoked [id number] Immunizations No Data in Section Vital Signs No Data in Section Procedures Date Concept Id Description Targeted Site Concept Targeted Site Concept Type 04/06/2020 13388 Brief Individual Psychotherapy - 30 min CPT Patient has no history of implantable de vices Encounters Encounter Start Date End Date Encounter Type Description Diagnosis Di agnosis Desc Location Author First Name Author Last Name Npid Taxonomy Cod e Taxonomy Desc Phone Number Location Addr1 Location Addr2 Location [facility] Location [facility] Location [facility] 072581 04/06/2020 04/06/2020 35240 Brief Individual Psychoth erapy - 30 min F25.9 Schizoaffective disorder, unspecified [facility] [id number] [id number] Scouring Machine Tender [id number] [address] [address] Plan of Treatment No Data in Section Lab Results No Data in Section Instructions No Data in Section Insurance Providers Insurance Id Policy Effective Date Policy Thru Date Company N ilda [id number] 2017 [email or web address]
--- OUTSIDE RECORDS SUMMARY | 2020-04-09 11:47 | CCD ---
Author Author Estella Sultana Organization Unknown Address [address] [place] [address] Phone Care Team Providers Care Supply Teacher Name Role Phone Meliza Sultana PCP Allergies, Adverse Reactions, Alerts Concept Allergy Name Reaction Severity Onset Date Status Documentation Date Phone Number Npid Taxonomy Code Taxonomy Desc Author Last Name Author Fi rst Name Concept Type 817695 nkda Active 01/10/2018 RXNORM Problem List Concept [...] Name Taxonomy Code Taxonomy Desc Phone Number [id number] prazosin 08/27/2019 1 mg capsule 74979 11 [id number] Ashley Fernandez [id number] Nurse Practitioner [phone] 156119 trazodone 11/04/2019 at bedtime 50 mg tablet as needed 90327 175700 [id number] Ashley Fernandez [id number] Nurse Practitioner [id number] 4822 468541 amantadine HCl 06/05/2019 03/30/2020 30 100 mg caps ule 53440 267609 [id number] Ashley Fernandez [id number] Nurse Practitioner 905013 0930 574621 benztropine 07/23/2019 03/30/2020 30 1 mg tablet 91196 310074 [id number] Ashley Fernandez [id number] Nurse Practitioner [phone] 577278 Clozaril by mouth [id number] 03/10/2020 05/18/2020 at bedtime 7 25 mg tablet 44139 378940 [id number] Ashley Fernandez [id number] Nurse Pra ctitioner [phone] 6767038 Haldol Decanoate intramuscularly 10/10/20182020 every four weeks 28 100 mg/mL solution 73811 939117 [id number] Ashley del rio [id number] Nurse Practitioner [phone] Social History Social History Element Description Concept Effective Date Smoking Status Unknown if ever smoked [id number] Immunizations No Data in Section Vital Signs No Data in Section Procedures Date Concept Id Description Targeted Site Concept Targeted Site Concept Type 03/30/2020 97344 Brief Individual Psychotherapy - 30 min CPT Patient has no history of implantable de vices Encounters Encounter Start Date End Date Encounter Type Description Diagnosis Di agnosis Desc Location Author First Name Author Last Name Npid Taxonomy Cod e Taxonomy Desc Phone Number Location Addr1 Location Addr2 Location [facility] Location Sta te Location [facility] [id number] 03/30/2020 03/30/2020 13182 Brief Individual Psychoth erapy - 30 min F25.9 Schizoaffective disorder, unspecified [facility] [id number] [id number] 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 [address] Plan of Treatment No Data in Section Lab Results No Data in Section Instructions No Data in Section Insurance Providers Insurance Id Policy Effective Date Policy Thru Zuhair Juarez ame [id number] [address]
--- OUTSIDE RECORDS SUMMARY | 2020-04-09 11:47 | CCD ---
Author Author JimEstella Ashley Organization Unknown Address [address] [place] [address] Phone Care Team Providers Care Cadd Instructor Name Role Phone Ashley Fernandez PCP Allergies, Adverse Reactions, Alerts Concept Allergy Name Reaction Severity Onset Date Status Documentation Date Phone Number Npid Taxonomy Code Taxonomy Desc Author Last Name Author Michele rst Name Concept Type [id number] nkda Active 01/10/2018 RXNORM Problem List Concept Problem Description Status Start Date Created Date Resolv ed Date Snomed Code F25.9 Schizoaffective Disorder Active 12/18/2017 12/18/2017 Z72.0 Tobacco Use Disorder, Mild Active 01/30/2020 Medications Rx Norm Medication Route Route Concept Start Date Stop Date Dosage Aniket quency Duration Formula Strength Dosage Form Dosage Form Code Dosage Description Medication Id Account Npid Author First Name Author Last Name Taxonomy Code Taxonomy Desc Phone Number [id number] prazosin 08/27/2019 1 mg capsule 55514 11 [id number] Ashley Fernandez [id number] Nurse Practitioner [phone] 566673 trazodone 11/04/2019 at bedtime 50 mg tablet as needed 01755 491503 [id number] Ashley Fernandez [id number] Nurse Practitioner 833203 0071 070877 sertraline 12/04/2019 01/27/2020 every morning 30 100 mg tablet 06218 678911 [phone] Ashley Fernandez [id number] Nurse Practitioner [phone] 764251 haloperidol by mouth [id number] 12/26/2019 01/27/2020 twice a day 30 5 mg tablet 30488 238028 [id number] Ashley Seamane [id number] Nurse Maik luna [phone] 570342 haloperidol by mouth [id number] 01/27/2020 01/27/2020 twice a day 30 5 mg tablet 18021 594194 [id number] Ashley Fernandez [id number] Nurse P karlieer [phone] 366324 amantadine HCl 06/05/2019 02/24/2020 30 100 mg caps ule 69150 067354 [id number] Ashley Fernandez [id number] Nurse Practitioner 942123 3148 459626 benztropine 07/23/2019 02/24/2020 30 1 mg tablet 96639 892913 [id number] Ashley Fernandez [id number] Nurse Practitioner [id number] 5 2580979 Haldol Decanoate intramuscularly 10/10/20182020 every four weeks 28 100 mg/mL solution 96775 469708 [id number] Ashley Jurgen quang [id number] Nurse Practitioner [id number] Social History Social History Element Description Concept Effective Date Smoking Status Unknown if ever smoked [id number] 49033431 Immunizations No Data in Section Vital Signs Encounter Date Height Ins Weight Lbs Bmi Bp Systolic Bp Diastoli c Oxygen Saturation Respiration Rate Pulse Rate Body Temp Head Circumference Heigh t Lying 01/27/2020 0.00 0.00 0.00 0 0 0.00 0 0 0.00 0.0 0.0 0 Procedures Date Concept Id Description Targeted Site Concept Targeted Site Concept Type 01/27/2020 01076 E/M Level 3 - Established Patient CPT Patient has no history of implantable de vices Encounters Encounter Start Date End Date Encounter Type Description Diagnosis Di agnosis Desc Location Author First Name Author Last Name Npid Taxonomy Cod e Taxonomy Desc Phone Number Location Addr1 Location Addr2 Location [facility] Location [facility] [id number] 01/27/2020 01/27/2020 24926 E/M Level 3 - Established [place] F25.9 Schizoaffective disorder, unspecified [facility] Jim Ashley [id number] [id number] Nurse Practitioner [phone] [address] [place] [address] Plan of Treatment No Data in Section Lab Results No Data in Section Instructions No Data in Section Functional Cognitive Status No Data in Section Insurance Providers Insurance Id Policy Effective Date Policy Thru Date Company N ilda [id number] 2017 [id number]
--- OUTSIDE RECORDS SUMMARY | 2020-04-09 11:47 | CCD ---
Author Author Estella Fernandez Ashley Organization Unknown Address [address] [place] [phone] Phone Care Team Providers Care Sheet Rock Taper Name Role Phone Ashley Fernandez PCP Allergies, Adverse Reactions, Alerts Concept Allergy Name Reaction Severity Onset Date Status Documentation Date Phone Number Npid Taxonomy Code Taxonomy Desc Author Last Name Author Michele rst Name Concept Type 327028 nkda Active 01/10/2018 RXNORM Problem List Concept [...] Name Taxonomy Code Taxonomy Desc Phone Number 754100 prazosin 08/27/2019 1 mg capsule 83375 11 0431 [phone] Ashley Fernandez [id number] Nurse Practitioner [phone] 954424 trazodone 11/04/2019 at bedtime 50 mg tablet as needed 03745 105530 [id number] Ashley Fernandez [id number] Nurse Practitioner 957848 4505 307748 amantadine HCl 06/05/2019 03/30/2020 30 100 mg caps ule 31693 424647 [id number] Ashley Fernandez [id number] Nurse Practitioner 797549 2439 530757 benztropine 07/23/2019 03/30/2020 30 1 mg tablet 90251 092700 [id number] Ashley Fernandez [id number] Nurse Practitioner [phone] 5 1812343 Haldol Decanoate intramuscularly 10/10/20182020 every four weeks 28 100 mg/mL solution 87512 734488 [id number] Ashley del rio [id number] Nurse Practitioner [id number] Social History Social History Element Description Concept Effective Date Smoking Status Unknown if ever smoked [id number] Immunizations No Data in Section Vital Signs Encounter Date Height Ins Weight Lbs Bmi Bp Systolic Bp Diastoli c Oxygen Saturation Respiration Rate Pulse Rate Body Temp Head Circumference Heigh t Lying 03/10/2020 0.00 0.00 0.00 0 0 0.00 0 0 0.00 0.0 0.0 0 Procedures Date Concept Id Description Targeted Site Concept Targeted Site Concept Type 03/10/2020 99217 E/M Level 3 - Established Patient CPT 03/10/2020 56414 Psychotherapy ADD ON - 30 Minutes CPT Patient has no history of implantable de vices Encounters Encounter Start Date End Date Encounter Type Description Diagnosis Di agnosis Desc Location Author First Name Author Last Name Npid Taxonomy Cod e Taxonomy Desc Phone Number Location Addr1 Location Addr2 Location City Location Sta te Location Zip [address] 03/10/2020 03/10/2020 54441 E/M Level 3 - Established [place] F25.9 Schizoaffective disorder, unspecified [facility] Ashley [phone] [id number] Nurse Practitioner [id number] [address] [address] Plan of Treatment No Data in Section Lab Results No Data in Section Instructions No Data in Section Functional Cognitive Status No Data in Section Insurance Providers Insurance Id Policy Effective Date Policy Thru Date Company N ilda [id number] 2017 [email or web address]
--- OUTSIDE RECORDS SUMMARY | 2020-04-09 11:48 | CCD ---
Author Author Estella Brody Organization Unknown Address [address] [place] [address] Phone Care Team Providers Care Baffle Mounter Name Role Phone Ronn Kenya PCP Allergies, Adverse Reactions, Alerts Concept Allergy Name Reaction Severity Onset Date Status Documentation Date Phone Number Npid Taxonomy Code Taxonomy Desc Author Last Name Author Michele rst Name Concept Type 847589 nkda Active 01/10/2018 RXNORM Problem List Concept [...] Name Taxonomy Code Taxonomy Desc Phone Number [id number] prazosin 08/27/2019 1 mg capsule 60380 11 [id number] Ashley Fernandez [id number] Nurse Practitioner [phone] 732976 trazodone 11/04/2019 at bedtime 50 mg tablet as needed 55937 342236 [id number] Ashley Fernandez [id number] Nurse Practitioner 381466 4502 921407 amantadine HCl 06/05/2019 02/24/2020 30 100 mg caps ule 23423 217900 [id number] Ashley Fernandez [id number] Nurse Practitioner 909681 1762 462696 benztropine 07/23/2019 02/24/2020 30 1 mg tablet 40883 549992 [id number] Ashley Fernandez [id number] Nurse Practitioner [id number] 5 659770 sertraline 12/04/2019 02/24/2020 every morning 30 100 mg tablet 53747 701894 [id number] Ashley Fernandez [id number] Nurse Practitioner [phone] 390906 haloperidol by mouth [id number] 12/26/2019 02/24/2020 twice a day 30 5 mg tablet 48868 426917 [id number] Ashley Jim [id number] Nurse Maik luna [phone] 6626416 Haldol Decanoate intramuscularly 10/10/20182020 every four weeks 28 100 mg/mL solution 45614 908376 [phone] Ashley del rio [id number] Nurse Practitioner [id number] Social History Social History Element Description Concept Effective Date Smoking Status Unknown if ever smoked 057002188 12975873 Immunizations No Data in Section Vital Signs No Data in Section Procedures Date Concept Id Description Targeted Site Concept Targeted Site Concept Type 01/16/2020 H2010 Injectable Medication Administra tion w/ Monitoring & Education CPT Patient has no history of implantable de vices Encounters Encounter Start Date End Date Encounter Type Description Diagnosis Di agnosis Desc Location Author First Name Author Last Name Npid Taxonomy Cod e Taxonomy Desc Phone Number Location Addr1 Location Addr2 Location [facility] Location [facility] Location [facility] [id number] 01/16/2020 01/16/2020 H2010 Injectable Medi cation Administration w/ Monitoring & Education F25.9 Schizoaffective disorder, unspecified [facility] Ronn Zambrano [phone] [id number] R egistered Nurse [phone] [address] [place] [phone] Plan of Treatment No Data in Section Lab Results No Data in Section Instructions No Data in Section Insurance Providers Insurance Id Policy Effective Date Policy Thru Date Company N ilda [id number] [address]
--- OUTSIDE RECORDS SUMMARY | 2020-04-09 11:48 | CCD ---
Author Author [facility] Organization [facility] Address Unknown Phone Unavailable Care Team Providers Care Social Services Name Role Phone Juju Barrientos Unavailable PROBLEMS Type Condition ICD9-CM Code [id number] Code Onset Dates Condition S tatus SNOMED Code Notes Problem Paranoid schizophrenia, chronic condition F20.0 Active 44601884 Problem Candidiasis of breast B37.89 Active 80921218 Problem Vitamin D deficiency E55.9 Active 69310808 Problem Obesity E66.9 Active 564294037 Problem Tinea versicolor B36.0 Active 57324258 Problem Obesity (BMI 30-39.9) 278.00 Active 611974143 Problem Infrequent menses N91.5 Active 49989482 Problem 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 Ac tive 990998801 Problem History of anemia Z86.2 Active 287923985 Problem Paranoid schizophrenia F20.0 Active 11065166 Problem Class 1 obesity due to exces s calories without serious comorbidity in adult, unspecified BMI E66.09 Active 765572365 Problem Irregular menses N92.6 Active 56555486 Problem Night terrors, adult F51.4 Active 31499937 Problem Body mass index 33.0-33.9, adult Z68.33 Active 463259652 Problem Tobacco dependence F17.200 Active 89385570 Problem Pica in adults F50.89 Active 10387165 Problem Cigarette nicotine dependence without complication F17.210 Active 55002743 Problem Cigarette nicotine dependence with nicotine-induced di sorder F17.219 Active 64252871 ALLERGIES Allergen (clinical drug ingredient) Drug/Non Drug Allergy do cumented on EMR Reaction Allergy Type Onset Date Status paliperidone Invega([facility] Code:[address]-16) facial droopness Drug All ergy Active Penicillin (For Allergies Use Only) Unsure of Reaction Demarcus perez Allergy Active ENCOUNTERS from 1990 to 2020-01-23 Encounter Location Date Provider Diagnosis [facility] [address] [place] [phone] Jan, Juju Lazoc IMMUNIZATIONS No Information SOCIAL HISTORY Tobacco Use: Social History Observation Description Date Details (start date - stop date) Current Smoker Sex Assigned At : Social History Observation Description Sex Assigned At Unknown Audit Question Answer Notes Total Score: 0 Interpretation: Alcohol Education Language: Question Answer Notes Languages spoken: Citizen Of [place] Sexual Hx: Question Answer Notes Had sex [...] smoke? 11-20 Are you interested in quitting? Not ready to quit REASON FOR REFERRAL No Information VITAL SIGNS No information MEDICATIONS Medication SIG (Take, Route, Frequency, Duration) Start Date En d Date Status Nicotrol 10 MG 1 cartridge as needed( mdd o f 4 cartridges) Inhalation Daily PRN for 30 Days Mar, Active Prazosin HCl 1 MG 1 capsule at bedtime Orally Once a day for 30 day (s) Active Benztropine Mesylate 1 MG 1 tablet at bedtime Orally bid Active Folic Acid 1 MG TAKE ONE TABLET BY MOUTH EVERY DAY orally Daily for 30 days Active Vitamin D 25 MCG (1000 UT) 1 tablet Orally Once a day for 30 day(s) Aug, Active Mapap 325 MG TAKE TWO TABLETS BY MOUTH FO UR TIMES DAILY NEEDED FOR UP TO 10 DAYS Oral every 4 hrs for 4 days Active Amantadine HCl 100 MG 2 capsules Orally Twice a day for 30 day(s) Active Haloperidol 5 MG 1/2 tab once daily Activ e Colace 100 MG 1 capsule as needed Orally Once a day for 30 day(s) Active Haloperidol Decanoate 100 MG/ML INJECT 100 MG INTRAMUS CULARLY SINGLE DOSE DIRECTED EVERY MONTH Intramuscular for 30 Active Trazodone HCl 50 MG TAKE ONE TABLET BY MOUTH AT BEDTIME Oral for 30 Active Sertraline HCl 50 MG TAKE ONE TABLET BY MOUTH ONCE DAILY Oral for 3 0 Active Ferrous Sulfate 325 (65 Fe) MG 1 tablet orally Twice a day for 30 D ays Active PROCEDURES No Information RESULTS No Results REASON FOR VISIT vitamin MEDICAL (GENERAL) HISTORY Type Description Date Medical [...] Information ASSESSMENTS No Information PLAN OF TREATMENT Next Appt Details Provider Name:Juju Barrientos, 2020-01-24 01:20:00 PM, [address] [place] [address], [phone], Provider Name:Lauren Zambrano, 2020-01-29 1 0:30:00 AM, [address] [place] [address], [id number], Provider Name:Juju Barrientos, 2020-04-02 01:40:00 PM, [address] [place] [address], [phone], Insurance Providers Payer Name Payer Address Payer Phone Insured Name Patient Relati onship to Insured Coverage Start Date Coverage End Date [facility] [address] [facility] [phone] EVELIO KUNZ self
--- OUTSIDE RECORDS SUMMARY | 2020-04-09 11:48 | CCD ---
Author Author Estella Sultana Organization Unknown Address [address] [place] [address] Phone Care Team Providers Care Cable Engineer Outside Plant Name Role Phone Meliza Sultana PCP Allergies, Adverse Reactions, Alerts Concept Allergy Name Reaction Severity Onset Date Status Documentation Date Phone Number Npid Taxonomy Code Taxonomy Desc Author Last Name Author Michele rst Name Concept Type 093625 nkda Active 01/10/2018 RXNORM Problem List Concept Problem Description Status Start Date Created Date Resolv ed Date Snomed Code F25.9 Schizoaffective Disorder Active 12/18/2017 12/18/2017 Z72.0 Tobacco Use Disorder, Mild Active 01/21/2020 Medications Rx Norm Medication Route Route Concept Start Date Stop Date Dosage Aniket quency Duration Formula Strength Dosage Form Dosage Form Code Dosage Description Medication Id Account Npid Author First Name Author Last Name Taxonomy Code Taxonomy Desc Phone Number [id number] prazosin 08/27/2019 1 mg capsule 75969 11 0431 [phone] Ashley Fernandez [id number] Nurse Practitioner [id number] 580768 trazodone 11/04/2019 at bedtime 50 mg tablet as needed 56022 905914 [id number] Ashley Fernandez [id number] Nurse Practitioner [phone] 421326 amantadine HCl 06/05/2019 02/24/2020 30 100 mg caps ule 17963 607382 [id number] Ashley Fernandez [id number] Nurse Practitioner [id number] 9742 566249 benztropine 07/23/2019 02/24/2020 30 1 mg tablet 13627 514006 [id number] Ashley Fernandez [id number] Nurse Practitioner [phone] 577225 sertraline 12/04/2019 02/24/2020 every morning 30 100 mg tablet 67605 830341 [id number] Ashley Fernandez [id number] Nurse Practitioner [phone] 057696 haloperidol by mouth [id number] 12/26/2019 02/24/2020 twice a day 30 5 mg tablet 90393 941335 [id number] Ashley Fernandez [id number] Nurse Maik luna [phone] [id number] Haldol Decanoate intramuscularly 10/10/20182020 every four weeks 28 100 mg/mL solution 41653 207136 [id number] Ashley del rio [id number] Nurse Practitioner [id number] Social History Social History Element Description Concept Effective Date Smoking Status Unknown if ever smoked [id number] Immunizations No Data in Section Vital Signs No Data in Section Procedures Date Concept Id Description Targeted Site Concept Targeted Site Concept Type 01/21/2020 37324 Brief Individual Psychotherapy - 30 min CPT Patient has no history of implantable de vices Encounters Encounter Start Date End Date Encounter Type Description Diagnosis Di agnosis Desc Location Author First Name Author Last Name Npid Taxonomy Cod e Taxonomy Desc Phone Number Location Addr1 Location Addr2 Location [facility] Location Sta te Location [place] [id number] 01/21/2020 01/21/2020 10193 Brief Individual Psychoth erapy - 30 min F25.[address], [address] 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
--- OUTSIDE RECORDS SUMMARY | 2020-04-09 11:48 | CCD ---
Author Author Estella Sultana Organization Unknown Address [address] [place] [address] Phone Care Team Providers Care Pet Care Assistant Name Role Phone Meliza Sultana PCP Allergies, Adverse Reactions, Alerts Concept Allergy Name Reaction Severity Onset Date Status Documentation Date Phone Number Npid Taxonomy Code Taxonomy Desc Author Last Name Author Michele rst Name Concept Type 839894 nkda Active 01/10/2018 RXNORM Problem List Concept [...] Name Taxonomy Code Taxonomy Desc Phone Number [id number] prazosin 08/27/2019 1 mg capsule 71907 11 [id number] Ashley Fernandez [id number] Nurse Practitioner [phone] 069619 trazodone 11/04/2019 at bedtime 50 mg tablet as needed 44060 070546 [id number] Ashley Fernandez [id number] Nurse Practitioner [phone] 545389 amantadine HCl 06/05/2019 02/24/2020 30 100 mg caps ule 22570 580477 [id number] Ashley Fernandez [id number] Nurse Practitioner 157428 9589 696727 benztropine 07/23/2019 02/24/2020 30 1 mg tablet 89140 688894 [id number] Ashley Fernandez [id number] Nurse Practitioner [phone] 256150 sertraline 12/04/2019 02/24/2020 every morning 30 100 mg tablet 74205 686494 [id number] Ashley Fernandez [id number] Nurse Practitioner [phone] 677851 haloperidol by mouth [id number] 12/26/2019 02/24/2020 twice a day 30 5 mg tablet 82527 211855 [phone] Ashley Fernandez [id number] Nurse Maik luna [phone] 3024950 Haldol Decanoate intramuscularly 10/10/20182020 every four weeks 28 100 mg/mL solution 01740 852446 [phone] Ashley del rio [id number] Nurse Practitioner [phone] Social History Social History Element Description Concept Effective Date Smoking Status Unknown if ever smoked [id number] Immunizations No Data in Section Vital Signs No Data in Section Procedures Date Concept Id Description Targeted Site Concept Targeted Site Concept Type 01/21/2020 41439 Brief Individual Psychotherapy - 30 min CPT Patient has no history of implantable de vices Encounters Encounter Start Date End Date Encounter Type Description Diagnosis Di agnosis Desc Location Author First Name Author Last Name Npid Taxonomy Cod e Taxonomy Desc Phone Number Location Addr1 Location Addr2 Location [facility] Location Sta te Location Zip [id number] 01/21/2020 01/21/2020 92357 Brief Individual Psychoth erapy - 30 min F25.[address], [address] [facility] [id number] Telehealth Director [phone] [address] [facility] [address] Plan of Treatment No Data in Section Lab Results No Data in Section Instructions No Data in Section Insurance Providers Insurance Id Policy Effective Date Policy Thru Date Company N ilda [id number] 2017 [id number]
--- OUTSIDE RECORDS SUMMARY | 2020-04-09 11:48 | CCD ---
Author Author [facility] Organization [facility] Address Unknown Phone Unavailable Care Team Providers Care Arnp Name Role Phone Juju Barrientos Unavailable PROBLEMS Type Condition ICD9-CM Code ABP02-BK Code Onset Dates Condition S tatus SNOMED Code Notes Problem Paranoid schizophrenia, chronic condition F20.0 Active 77939844 Problem Candidiasis of breast B37.89 Active 54565770 Problem Vitamin D deficiency E55.9 Active 27540763 Problem Obesity E66.9 Active 890514754 Problem Tinea versicolor B36.0 Active 15045512 Problem Obesity (BMI 30-39.9) 278.00 Active 119223075 Problem Infrequent menses N91.5 Active 20793483 Problem 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 Ac tive 146982367 Problem History of anemia Z86.2 Active 399799672 Problem Paranoid schizophrenia F20.0 Active 66517350 Problem Class 1 obesity due to exces s calories without serious comorbidity in adult, unspecified BMI E66.09 Active 880631276 Problem Irregular menses N92.6 Active 32728000 Problem Night terrors, adult F51.4 Active 17279944 Problem Body mass index 33.0-33.9, adult Z68.33 Active 995923097 Problem Tobacco dependence F17.200 Active 96146087 Problem Pica in adults F50.89 Active 63459387 Problem Cigarette nicotine dependence without complication F17.210 Active 85128914 Problem Cigarette nicotine dependence with nicotine-induced di sorder F17.219 Active 63739473 ALLERGIES Allergen (clinical drug ingredient) Drug/Non Drug Allergy do cumented on EMR Reaction Allergy Type Onset Date Status paliperidone Invega([facility] Code:[address]-28) facial droopness Drug All ergy Active Penicillin (For Allergies Use Only) Unsure of Reaction Demarcus perez Allergy Active ENCOUNTERS from 1990 to 2020-01-24 Encounter Location Date Provider Diagnosis [facility] [address] [place] [phone] Jan, Juju Lazoc Worried well Z71.1 a nd Negative test Z32.02 IMMUNIZATIONS No Information SOCIAL HISTORY Tobacco Use: Social History Observation Description Date Details (start date - stop date) Current Smoker Sex Assigned At : Social History Observation Description Sex Assigned At Unknown Audit Question Answer Notes Total Score: 0 Interpretation: Alcohol Education Language: Question Answer Notes Languages spoken: Yemeni Sexual Hx: Question Answer Notes Had sex [...] FOR REFERRAL No Information VITAL SIGNS Weight 206 lbs Jan, Weight-kg 93.44 kg Jan, Height 64 in Jan, BMI 35.36 kg/m2 Jan, Blood pressure systolic 102 mm Hg Jan, Blood pressure diastolic 62 mm Hg Jan, MEDICATIONS Medication SIG (Take, Route, Frequency, Duration) Start Date En d Date Status Trazodone HCl 50 MG TAKE ONE TABLET BY MOUTH AT BEDTIME Oral for 30 Active Colace 100 MG 1 capsule as needed Orally Once a day for 30 day(s) Active Haloperidol 5 MG 3 tabs twice a day Activ e Nicotrol 10 MG 1 cartridge as needed( mdd o f 4 cartridges) Inhalation Daily PRN for 30 Days Mar, Active Folic Acid 1 MG TAKE ONE TABLET BY MOUTH EVERY DAY orally Daily for 30 days Active Amantadine HCl 100 MG 1 capsule Orally Once a day for 30 day(s) Active Mapap 325 MG TAKE TWO TABLETS BY MOUTH FO UR TIMES DAILY NEEDED FOR UP TO 10 DAYS Oral every 4 hrs for 4 days Active Vitamin D 25 MCG (1000 UT) 1 tablet Orally Once a day for 30 day(s) Aug, Active Prazosin HCl 1 MG 1 capsule at bedtime Orally Once a day for 30 day (s) Active Benztropine Mesylate 1 MG 1 tablet Orally bid Active Cefdinir 300 MG Oral for 7 Active Haloperidol Decanoate 100 MG/ML INJECT 100 MG INTRAMUS CULARLY SINGLE DOSE DIRECTED EVERY MONTH Intramuscular for 30 Active Ferrous Sulfate 325 (65 Fe) MG 1 tablet orally Twice a day for 30 D ays Active Sertraline HCl 50 MG TAKE ONE TABLET BY MOUTH ONCE DAILY Oral for 3 0 Not-Taking PROCEDURES No Information RESULTS Component Value Reference Range Test, Urine Reviewed date:01/24/2020 14:46:42 Interpretation:Negative Performing Lab:[facility] [place], [place] [address] Test, Urine neg Negative - Internal QC Acceptable (Y/N) yes REASON FOR VISIT confirm MEDICAL (GENERAL) HISTORY Type Description Date Medical [...] STATUS No Information ASSESSMENTS Encounter Date Diagnosis Notes Jan, Negative test (ICD-10 - Z32.02 ) Jan, Worried well (ICD-10 - Z71.1) PLAN OF TREATMENT Treatment Notes Assessment Notes Clinical Notes Worried well pt is trying to get . she is requesting vitamins, she is already on folic acid and does not need any supplementation Negative test urine preg test neg today. Next Appt Details prn Reason:prn Provider Name:Lauren Zambrano 2020-01-29 1 0:30:00 AM, [address] [facility], [place], [address], Provider Name:Juju Barrientos, 2020-04-02 01:40:00 PM, [address] [place], [address], Follow Up:prnprn Insurance Providers Payer Name Payer Address Payer Phone Insured Name Patient Relati onship to Insured Coverage Start Date Coverage End Date [facility] [address] [facility] [address] EVELIO KUNZ self
--- OUTSIDE RECORDS SUMMARY | 2020-04-09 11:49 | CCD ---
Author Author [facility] Organization [facility] Address Unknown Phone Unavailable Support Name Relationship Address Phone Willa Tinsley Next Of Kin Unknown Unavailable Claire Gio Next Of Kin Unknown Unavailable Shakira Miller Next Of Kin [address] [place] [address] CHOOSES, TO LIST NOT Next Of Kin [address] [place] [address] [place] [address] DISABLED Next Of Kin Unknown Unavailable LISE KUNZ Next Of Kin Unknown Unavailab Bates Next Of Kin [address] [place] [address] COR[place] [address] [place] [address] KELLY [place] [address] AISHA [place] [address] CECILIOWSBRYCE [place] [address] [place] [address] SEEMA KUNZ Next Of Kin [address] [place] [address] UE Next Of Kin Unknown Unavailable [place] [address] ST Next Of Kin Unknown Unavailable SADE OSULLIVAN Next Of Kin [address] [place] [address] WILLA OSULLIVAN Next Of Kin [address] [place] [address] WILLA OSULLIVAN [facility] [address] [place] [address] Unavailable Care Team Providers Care Field Support Rep Name Role Phone COLT, L GHISLAINE PA Unavailable Unavailable COLT, L GHISLAINE PA Unavailable Unavailable COLT, L GHISLAINE PA Unavailable Unavailable COLT, L GHISLAINE PA Unavailable Unavailable COLT, L GHISLAINE PA Unavailable Unavailable COLT, L GHISLAINE PA Unavailable Unavailable COLT, L GHISLAINE PA Unavailable Unavailable COLT, L GHISLAINE PA Unavailable Unavailable COLT, L GHISLAINE PA Unavailable Unavailable COLT, L GHISLAINE PA Unavailable Unavailable COLT, L GHISLAINE PA Unavailable Unavailable COLT, L GHISLAINE PA Unavailable Unavailable COLT, L GHISLAINE PA Unavailable Unavailable COLT, L GHISLAINE PA Unavailable Unavailable COLT, L GHISLAINE PA Unavailable Unavailable COLT, L GHISLAINE PA Unavailable Unavailable COLT, L GHISLAINE PA Unavailable Unavailable COLT, L GHISLAINE PA Unavailable Unavailable COLT, L GHISLAINE PA Unavailable Unavailable Dana Dalton MD Unavailable Unavailable Dana Dalton MD Unavailable Unavailable Dana Dalton MD Unavailable Unavailable Dana Dalton MD Unavailable Unavailable Dana Dalton MD Unavailable Unavailable Dana Dalton MD Unavailable Unavailable Dana Dalton MD Unavailable Unavailable Dana Dalton MD Unavailable Unavailable Dana Dalton MD Unavailable Unavailable Dana Dalton MD Unavailable Unavailable Dana Dalton MD Unavailable Unavailable Dana Dalton MD Unavailable Unavailable Dana Dalton MD Unavailable Unavailable Dana Dalton MD Unavailable Unavailable Dana Dalton MD Unavailable Unavailable Dana Dalton MD Unavailable Unavailable Dana Dalton MD Unavailable Unavailable Dana Dalton MD Unavailable Unavailable Dana Dalton MD Unavailable Unavailable Dana Dalton MD Unavailable Unavailable Dana Dalton MD Unavailable Unavailable Dana Dalton MD Unavailable Unavailable Dana Dalton MD Unavailable Unavailable Dana Dalton MD Unavailable Unavailable Dana Dalton MD Unavailable Unavailable Dana Dalton MD Unavailable Unavailable Dana Dalton MD Unavailable Unavailable Dana Dalton MD Unavailable Unavailable Dana Dalton MD Unavailable Unavailable Dana Dalton MD Unavailable Unavailable Dana Dlaton MD Unavailable Unavailable Dana Dalton MD Unavailable Unavailable Dana Dalton MD Unavailable Unavailable Dana Dalton MD Unavailable Unavailable Dana Dalton MD Unavailable Unavailable Dana Dalton MD Unavailable Unavailable Dana Dalton MD Unavailable Unavailable Dana Dalton MD Unavailable Unavailable Dana Dalton MD Unavailable Unavailable Dana Dalton MD Unavailable Unavailable Dana Dalton MD Unavailable Unavailable Dana Dalton MD Unavailable Unavailable Dana Dalton MD Unavailable Unavailable Dana Dalton MD Unavailable Unavailable Dana Dalton MD Unavailable Unavailable Dana Dalton MD Unavailable Unavailable Dana Dalton MD Unavailable Unavailable Dana Dalton MD Unavailable Unavailable Dana Dalton MD Unavailable Unavailable Dana Dalton MD Unavailable Unavailable Dana Dalton MD Unavailable Unavailable Dana Dalton MD Unavailable Unavailable Dana Dalton MD Unavailable Unavailable Dana Dalton MD Unavailable Unavailable Dana Dalton MD Unavailable Unavailable Dana Dalton MD Unavailable Unavailable Dana Dalton MD Unavailable Unavailable Dana Dalton MD Unavailable Unavailable Dana Dalton MD Unavailable Unavailable Dana Dalton MD Unavailable Unavailable Dana Dalton MD Unavailable Unavailable Dana Dalton MD Unavailable Unavailable Dana Dalton MD Unavailable Unavailable Dana Dalton MD Unavailable Unavailable Dana Dalton MD Unavailable Unavailable Dana Dalton MD Unavailable Unavailable Dana Dalton MD Unavailable Unavailable Dana Dalton MD Unavailable Unavailable Dana Dalton MD Unavailable Unavailable Dana Dalton MD Unavailable Unavailable Dana Dalton MD Unavailable Unavailable Dana Dalton MD Unavailable Unavailable Dana Dalton MD Unavailable Unavailable Dana Dalton MD Unavailable Unavailable Dana Dalton MD Unavailable Unavailable Dana Dalton MD Unavailable Unavailable Dana Dalton MD Unavailable Unavailable Dana Dalton MD Unavailable Unavailable Dana Dalton MD Unavailable Unavailable Dana Dalton MD Unavailable Unavailable Dana Dalton MD Unavailable Unavailable Dana Dalton MD Unavailable Unavailable Dana Dalton MD Unavailable Unavailable Dana Dalton MD Unavailable Unavailable Dana Dalton MD Unavailable Unavailable Dana Dalton MD Unavailable Unavailable Dana Dalton MD Unavailable Unavailable Dana Dalton MD Unavailable Unavailable Dana Dalton MD Unavailable Unavailable Shakira Tobias STICKER MACHINE OPERATOR STICKER MACHINE OPERATOR Unavailable Unavailable Jada PURDY MD Unavailable Unavailable Jada PURDY MD Unavailable Unavailable Jada PURDY MD Unavailable Unavailable Jada PURDY MD Unavailable Unavailable Jada PURDY MD Unavailable Unavailable Jada PURDY MD Unavailable Unavailable Jada PURDY MD Unavailable Unavailable Jada PURDY MD Unavailable Unavailable Jada PURDY MD Unavailable Unavailable Jada PURDY MD Unavailable Unavailable Jada PURDY MD Unavailable Unavailable Jada PURDY MD Unavailable Unavailable Jada PURDY MD Unavailable Unavailable Jada PURDY MD Unavailable Unavailable Jada PURDY MD Unavailable Unavailable Jada PURDY MD Unavailable Unavailable Jada PURDY MD Unavailable Unavailable Jada PURDY MD Unavailable Unavailable Jada PURDY MD Unavailable Unavailable Jada PURDY MD Unavailable Unavailable BREANNE, Jada CERDA MD Unavailable Unavailable BRAENNE, Jada CERDA MD Unavailable Unavailable BREANNE, Jada CERDA MD Unavailable Unavailable BREANNE, Jada CERDA MD Unavailable Unavailable BREANNE, Jada CERDA MD Unavailable Unavailable BREANNE, Jada CERDA MD Unavailable Unavailable BREANNE, Jada CERDA MD Unavailable Unavailable BREANNE, Jada CERDA MD Unavailable Unavailable BREANNE, Jada CERDA MD Unavailable Unavailable BREANNE, Jada CERDA MD Unavailable Unavailable BREANNE, Jada CERDA MD Unavailable Unavailable BREANNE, Jada CERDA MD Unavailable Unavailable BREANNE, Jada CERDA MD Unavailable Unavailable BREANNE, Jada CERDA MD Unavailable Unavailable BREANNE, Jada ECRDA MD Unavailable Unavailable Meliza Sultana Unavailable Tobias, F Shakira STICKER MACHINE OPERATOR-BC Unavailable Unavailable Tobias, F Shakira STICKER MACHINE OPERATOR-BC Unavailable Unavailable Tobias, F Shakira STICKER MACHINE OPERATOR-BC Unavailable Unavailable Tobias, F Shakira STICKER MACHINE OPERATOR-BC Unavailable Unavailable Tobias, F Shakira STICKER MACHINE OPERATOR-BC Unavailable Unavailable Tobias, F Shakira STICKER MACHINE OPERATOR-BC Unavailable Unavailable Tobias, F Shakira STICKER MACHINE OPERATOR-BC Unavailable Unavailable Tobias, F Shakira STICKER MACHINE OPERATOR-BC Unavailable Unavailable Tobias, F Shakira STICKER MACHINE OPERATOR-BC Unavailable Unavailable Tobias, F Shakira STICKER MACHINE OPERATOR-BC Unavailable Unavailable Tobias, F Shakira STICKER MACHINE OPERATOR-BC Unavailable Unavailable Tobias, F Shakira STICKER MACHINE OPERATOR-BC Unavailable Unavailable Tboias, F Shakira STICKER MACHINE OPERATOR-BC Unavailable Unavailable Tobias, F Shakira STICKER MACHINE OPERATOR-BC Unavailable Unavailable Tobias, F Shakira STICKER MACHINE OPERATOR-BC Unavailable Unavailable Tobias, F Shakira STICKER MACHINE OPERATOR-BC Unavailable Unavailable Tobias, F Shakira STICKER MACHINE OPERATOR-BC Unavailable Unavailable Tobias, F Shakira STICKER MACHINE OPERATOR-BC Unavailable Unavailable Tobias, F Shakira STICKER MACHINE OPERATOR-BC Unavailable Unavailable Tobias, F Shakira STICKER MACHINE OPERATOR-BC Unavailable Unavailable Tobias, F Shakira STICKER MACHINE OPERATOR-BC Unavailable Unavailable Tobias, F Shakira STICKER MACHINE OPERATOR-BC Unavailable Unavailable Rotella, Cheyenne Unavailable Viktor Hernándezisten Unavailable Dana Dalton MD Unavailable Unavailable Dana Dalton MD Unavailable Unavailable Dana Dalton MD Unavailable Unavailable Dana Dalton MD Unavailable Unavailable Dana Dalton MD Unavailable Unavailable Dana Dalton MD Unavailable Unavailable Dana Dalton MD Unavailable Unavailable Dana Dalton MD Unavailable Unavailable Dana Dalton MD Unavailable Unavailable Dana Dalton MD Unavailable Unavailable Dana Dalton MD Unavailable Unavailable Dana Dalton MD Unavailable Unavailable Dana Dalton MD Unavailable Unavailable Dana Dalton MD Unavailable Unavailable Dana Dalton MD Unavailable Unavailable Dana Dalton MD Unavailable Unavailable Dana Dalton MD Unavailable Unavailable Dana Dalton MD Unavailable Unavailable Dana Dalton MD Unavailable Unavailable Dana Dalton MD Unavailable Unavailable Dana Dalton MD Unavailable Unavailable Dana Dalton MD Unavailable Unavailable Dana Dalton MD Unavailable Unavailable Dana Dalton MD Unavailable Unavailable Dana Dalton MD Unavailable Unavailable Dana Datlon MD Unavailable Unavailable Dana Dalton MD Unavailable Unavailable Dana Dalton MD Unavailable Unavailable Dana Dalton MD Unavailable Unavailable Dana Dalton MD Unavailable Unavailable Dana Dalton MD Unavailable Unavailable Dana Dalton MD Unavailable Unavailable Dana Dalton MD Unavailable Unavailable Dana Dalton MD Unavailable Unavailable Dana Dalton MD Unavailable Unavailable Dana Dalton MD Unavailable Unavailable Dana Dalton MD Unavailable Unavailable Dana Dalton MD Unavailable Unavailable Dana Dalton MD Unavailable Unavailable Dana Dalton MD Unavailable Unavailable Dana Dalton MD Unavailable Unavailable Dana Dalton MD Unavailable Unavailable Dana Dalton MD Unavailable Unavailable Dana Dalton MD Unavailable Unavailable Dana Dalton MD Unavailable Unavailable Dana Dalton MD Unavailable Unavailable Dana Dalton MD Unavailable Unavailable Dana Dalton MD Unavailable Unavailable Dana Dalton MD Unavailable Unavailable Dana aDlton MD Unavailable Unavailable Dana Dalton MD Unavailable Unavailable Dana Dalton MD Unavailable Unavailable Dana Dalton MD Unavailable Unavailable Dana Dalton MD Unavailable Unavailable Dana Dalton MD Unavailable Unavailable Dana Dalton MD Unavailable Unavailable Dana Dalton MD Unavailable Unavailable Dana Dalton MD Unavailable Unavailable Dana Dalton MD Unavailable Unavailable Dana Dalton MD Unavailable Unavailable Dana Dalton MD Unavailable Unavailable Dana Dalton MD Unavailable Unavailable Dana Dalton MD Unavailable Unavailable Dana Dalton MD Unavailable Unavailable Dana Dalton MD Unavailable Unavailable Dana Dalton MD Unavailable Unavailable Dana Dalton MD Unavailable Unavailable Dana Dalton MD Unavailable Unavailable Dana Dalton MD Unavailable Unavailable Dana Dalton MD Unavailable Unavailable Dana Dalton MD Unavailable Unavailable Dana Dalton MD Unavailable Unavailable Dana Dalton MD Unavailable Unavailable Dana Dalton MD Unavailable Unavailable Dana Dalton MD Unavailable Unavailable Dana Dalton MD Unavailable Unavailable Dana Dalton MD Unavailable Unavailable Dana Dalton MD Unavailable Unavailable Dana Dalton MD Unavailable Unavailable Dana Dalton MD Unavailable Unavailable Dana Dalton MD Unavailable Unavailable Dana Dalton MD Unavailable Unavailable Dana Dalton MD Unavailable Unavailable Dana Dalton MD Unavailable Unavailable Dana Dalton MD Unavailable Unavailable Dana Dalton MD Unavailable Unavailable Dana Dalton MD Unavailable Unavailable Dana Dalton MD Unavailable Unavailable Dana Dalton MD Unavailable Unavailable Kenya Brody Unavailable JIM, H CAROLANN COMMUNICATION MANAGER Unavailable Unavailable JIM, H CAROLANN COMMUNICATION MANAGER Unavailable Unavailable JIM, H CAROLANN COMMUNICATION MANAGER Unavailable Unavailable JIM, H CAROLANN COMMUNICATION MANAGER Unavailable Unavailable JIM, H CAROLANN COMMUNICATION MANAGER Unavailable Unavailable JIM, H CAROLANN COMMUNICATION MANAGER Unavailable Unavailable JIM, H CAROLANN COMMUNICATION MANAGER Unavailable Unavailable Yolanda Corrales Unavailable SYSTEM IN, NOT IN PROVIDER Unavailable Unavailable Floyd II, Isaias PA Unavailable Unavailable Floyd II, Isaias PA Unavailable Unavailable Floyd II, Isaias PA Unavailable Unavailable Floyd II, Isaias PA Unavailable Unavailable Floyd II, Isaias PA Unavailable Unavailable Floyd II, Isaias PA Unavailable Unavailable Floyd II, Isaias PA Unavailable Unavailable Floyd II, Isaias PA Unavailable Unavailable Floyd II, Isaias PA Unavailable Unavailable Floyd II, Isaias PA Unavailable Unavailable Floyd II, Isaias PA Unavailable Unavailable Floyd II, Isaias PA Unavailable Unavailable Floyd II, Isaias PA Unavailable Unavailable Floyd II, Isaias PA Unavailable Unavailable Floyd II, Isaias PA Unavailable Unavailable Floyd II, Isaias PA Unavailable Unavailable Floyd II, Isaias PA Unavailable Unavailable Re-disclosure Warning The records that you are about to access may contain information from federally-assisted alcohol or drug abuse programs. If such information is present, then the following federally mandated warning applies: This information has been disclosed to you from records protected by federal confidentiality rules (42 CFR part 2). The federal rules prohibit you from making any further disclosure of this information unless further disclosure is expressly permitted by the written consent of the person to whom it pertains or as otherwise permitted by 42 CFR part 2. A general authorization for the release of medical or other information is NOT sufficient for this purpose. The Federal rules restrict any use of the information to criminally investigate or prosecute any alcohol or drug abuse patient.The records that you are about to access may contain highly sensitive health information, the redisclosure of which is protected by Article 27-F of the [facility] Public Health law. If you continue you may have access to information: Regarding HIV / AIDS; Provided by facilities licensed or operated by the [facility] Office of Mental Health; or Provided by the [facility] Office for People With Developmental Disabilities. If such information is present, then the following [facility] mandated warning applies: This information has been disclosed to you from confidential records which are protected by state law. State law prohibits you from making any further disclosure of this information without the specific written consent of the person to whom it pertains, or as otherwise permitted by law. Any unauthorized further disclosure in violation of state law may result in a fine or penitentiary sentence or both. A general authorization for the release of medical or other information is NOT sufficient authorization for further disc losure. Allergies and Adverse Reactions Type Description Substance Reaction Status Data Source(s ) Propensity to adverse reactions to substance nkda 24 HR Bupropion Hydrochloride 150 MG Extended Release Oral Tablet Active [facility] ([facility]) Drug allergy Invega paliperidone facial droopness Active eCW 1 ([facility]) Family History Family Member Name Family Member Gender Family Member Status Date o f Status Description Data Source(s) Unknown Male Problem MEDENT ([facility]) Encounters Encounter Providers Location Date Indications Data Source(s ) Outpatient Attender: CAROLANN FERNANDEZ NP EMERGENCY ROOM-[facility] 04/07/2020 08:05:00 AM EST - 04/07/2020 08:05:00 AM EST [facility] Outpatient Attender: CAROLANN FERNANDEZ NP [facility] 04/07/2020 01:00:00 AM EST - 04/07/2020 01:00:00 AM EST [facility] ([facility]) Attender: CAROLANN FERNANDEZ NP 04/07/2020 12:00:00 AM EST [facility] ([facility]) Attender: Sharla Hernández 04/07/2020 12:00:00 A M EST [facility] ([facility]) Brief Individual Psychotherapy - 30 min Attender: Sharla ahn [facility] 04/06/2020 10:45:00 AM EST - 04/06/2020 10:45:00 AM EST [facility] ([facility]) [facility] [address] [place] [address] 04/02/2020 12:00:00 AM EST eCW1 ([facility]) Outpatient Attender: CAROLANN FERNANDEZ NP EMERGENCY ROOM-[facility] 03/31/2020 08:22:00 AM EST - 03/31/2020 08:22:00 AM [facility] Brief Individual Psychotherapy - 30 min Attender: Meliza munoz [facility] 03/30/2020 03:00:00 AM EST - 03/30/2020 03:00:00 AM EST [facility] ([facility]) Attender: Meliza Sultana 03/30/2020 12:00:00 AM EST [facility] ([facility]) Outpatient Attender: CAROLANN FERNANDEZ NPReferrer: Dominique Dalton MD EMERGENCY ROOM-LABOTH[facility] 03/24/2020 08:08:00 AM EST - 03/24/2020 08:08:00 AM [facility] Outpatient Attender: CAROLANN FERNANDEZ NP [facility] [facility] 03/24/2020 02:30:00 AM EST - 03/24/2020 02:30:00 AM EST [facility] ([facility]) Attender: CAROLANN FERNANDEZ NP 03/24/2020 12:00:00 AM EST [facility] ([facility]) Outpatient Attender: CAROLANN FERNANDEZ NP [facility] [place] 03/10/2020 09:30:00 AM EST - 03/10/2020 09:30:00 AM EST [facility] ([facility]) Attender: CAROLANN FERNANDEZ NP 03/10/2020 12:00:00 AM EST [facility] ([facility]) Unknown [address] [facility] [address] 03/06/2020 12:00:00 AM EST eCW1 ([facility]) Emergency Attender: GHISLAINE GREGORY PAReferrer: Branden Dalton MD EMERGENCY ROOM-ER 03/04/2020 09:48:00 PM EST - 03/04/2020 11:40:00 PM [facility] Patient discharged. Brief Individual Psychotherapy - 30 min Att[facility]: [facility] 03/03/2020 03:00:00 AM EST - 03/03/2020 03:00:00 AM EST [facility] ([facility]) Attender: Meliza Sultana 03/03/2020 12:00:00 AM EST [facility] ([facility]) Outpatient Referrer: PROVIDER SYSTEM IN 01/31/2020 1 1:26:00 PM EST suicidal ideations [facility] suicidal ideations Outpatient Attender: CAROLANN FERNANDEZ NP [facility] [place] [facility]er 01/27/2020 05:00:00 AM EST - 01/27/2020 05:00:00 AM EST [facility] ([facility]) Attender: CAROLANN FERNANDEZ NP 01/27/2020 12:00:00 AM EST [facility] ([facility]) Outpatient [address] [facility] [address] 01/24/2020 12:00:00 AM EST eCW1 ([facility]) Unknown [address] [facility] [address] 01/22/2020 12:00:00 AM EST eCW1 ([facility]) Brief Individual Psychotherapy - 30 min Attender: Meliza munoz [facility] 01/21/2020 01:30:00 AM EST - 01/21/2020 01:30:00 AM EST [facility] ([facility]) Attender: Meliza Sultana 01/21/2020 12:00:00 AM EST [facility] ([facility]) Injectable Medication Administration w/ Monitoring & E ducation Attender: Kenya Brody [facility] 01/16/2020 10:30:00 AM EDT - 01/16/2020 10:30:00 AM EDT [facility] ([facility]) Attender: Kenya Brody 01/16/2020 12:00:00 AM EDT [facility] ([facility]) Extended Individual Psychotherapy - 45 min Attender: Jay [facility]es [facility] 12/30/2019 02:45:00 AM EDT - 12/30/2019 02:45:00 AM EDT [facility] ([facility]) Attender: Yolanda Corrales 12/30/2019 12:00:00 AM EDT [facility] Outpatient Attender: CAROLANN FERNANDEZ NP [facility] [place] forrester 12/26/2019 04:30:00 AM EDT - 12/26/2019 04:30:00 AM EDT [facility] ([facility]) Attender: CAROLANN FERNANDEZ NP 12/26/2019 12:00:00 AM EDT [facility] ([facility] Outpatient [address] [place] [id number] 12/25/2019 12:00:00 AM EDT eCW1 ([facility]) Injectable Psychotropic Medication Administration (Inj ection Only) Attender: Cheyenne Allen [facility] 12/23/2019 02:00:00 AM EDT - 12/23/2019 02:00:00 AM EDT [facility] ([facility]) Attender: Cheyenne Allen 12/23/2019 12:00:00 AM EDT [facility] ([facility]) Office Visit, Est Pt., Level 3 PC [address] [place] [address] 12/20/2019 12:00:00 AM EDT eCW1 ([facility]) Attender: Cheyenne Allen 12/20/2019 12:00:00 AM EDT [facility] ([facility]) Injectable Psychotropic Medication Administration (Inj ection Only) Attender: [facility]enne [facility] 12/19/2019 11:00:00 AM EDT - 12/19/2019 11:00:00 AM EDT [facility] ([facility]) Outpatient Attender: CAROLANN FERNANDEZ NP [facility] [place] forrester 11/27/2019 04:30:00 AM EDT - 11/27/2019 04:30:00 AM EDT [facility] ([facility]) Attender: CAROLANN FERNANDEZ NP 11/27/2019 12:00:00 AM EDT [facility] ([facility]) Injectable Medication Administration w/ Monitoring & E ducation Attender: Kenya Ronn [facility] 11/21/2019 03:00:00 AM EDT - 11/21/2019 03:00:00 AM EDT [facility] ([facility]) Attender: Kenya Ronn 11/21/2019 12:00:00 AM EDT [facility] ([facility]) Outpatient Attender: ABRAHAM CORTEZ 11/08/2019 05:02:00 PM EDT [facility] Outpatient Attender: ABRAHAM CORTEZ 10/18/2019 02:30:05 PM EDT [facility] Outpatient Attender: Shakira CORTEZ 10/18/2019 02: 30:04 PM EDT [facility] Outpatient Attender: ABRAHAM CORTEZ 10/17/2019 10:04:01 AM EDT [facility] Outpatient Attender: ABRAHAM CORTEZ 10/09/2019 07:11:00 AM EDT [facility] Outpatient Attender: Shakira CORTEZ 10/08/2019 01: 38:59 PM EDT [facility] Outpatient Attender: ABRAHAM CORTEZ 10/08/2019 12:36:01 PM EDT [facility] Outpatient Attender: ABRAHAM CORTEZ 10/08/2019 12:33:01 PM EDT [facility] Outpatient Attender: ABRAHAM CORTEZ 10/07/2019 01:47:01 PM EDT [facility] Unknown [address] [facility] [address] 10/02/2019 12:00:00 AM EDT eCW1 ([facility]) [place] [address] [facility] [address] 10/02/2019 12:00:00 AM EDT eCW1 ([facility]) TEMPMHCTelemed 30" Psychotherapy Attender: Yolanda Mello [facility] 09/19/2019 11:30:00 AM EDT - 09/19/2019 11:30:00 AM EDT [facility] ([facility]) Attender: Yolanda Corrales 09/19/2019 12:00:00 AM EDT [facility] ([facility]) Outpatient Attender: Isaias Purdy/Lucian/Kevin/Rein ananya 09/12/2019 11:00:00 AM EDT MED[facility] ([facility]) Outpatient Attender: CAROLANN [facility]NDEZ [facility] 09/09/2019 02:00:00 AM EDT - 09/09/2019 02:00:00 AM EDT [facility] ([facility]) Attender: CAROLANN FERNANDEZ NP 09/09/2019 12:00:00 AM EDT [facility] ([facility]) Outpatient [address] [facility], [facility] [address] 09/04/2019 12:00:00 AM EDT eCW1 ([facility] Unknown [address] [facility] [address] 09/03/2019 12:00:00 AM EDT eCW1 ([facility]) [facility] Resident [address] [place] [address] 09/02/2019 12:00:00 AM EDT eCW1 ([facility]) Outpatient Attender: PRASHANT Purdy/Lucian/Kevin/Thuy l 08/26/2019 02:00:00 PM EDT MED[facility] ([facility]) Unknown [address] [facility], [place] [address] 08/21/2019 12:00:00 AM EDT eCW1 ([facility]) TEMPMHCTelemed 30" Psychotherapy Attender: Yolanda Corrales [facility] 08/14/2019 11:00:00 AM EDT - 08/14/2019 11:00:00 AM EDT [facility] ([facility]) Attender: Yolanda Corrales 08/14/2019 12:00:00 AM EDT [facility] ([facility]) TEMPMHCTelemed 30" Psychotherapy Attender: Yolanda [facility]rales [facility] 07/30/2019 01:30:00 AM EDT - 07/30/2019 01:30:00 AM EDT [facility] ([facility]) Attender: Yolanda Corrales 07/30/2019 12:00:00 AM EDT [facility] ([facility]) Attender: Kenya Brody 07/30/2019 12:00:00 AM EDT [facility] ([facility]) Injectable Medication Administration w/ Monitoring & E ducation Attender: Kenya Brody [facility] 07/29/2019 02:30:00 AM EDT - 07/29/2019 02:30:00 AM EDT [facility] ([facility]) Outpatient Attender: CAROLANN FERNANDEZ NP [facility] [place] forrester 07/23/2019 04:00:00 AM EDT - 07/23/2019 04:00:00 AM EDT [facility] ([facility]) Attender: CAROLANN FERNANDEZ NP 07/23/2019 12:00:00 AM EDT [facility] ([facility]) Outpatient [address] [facility] [address] 07/22/2019 12:00:00 AM EDT eCW1 [facility] [address] [facility] [address] 07/22/2019 12:00:00 AM EDT eCW1 ([facility]) TEMPMHCTelemed 30" Psychotherapy Attender: Yolanda Corrales [facility] 07/16/2019 01:30:00 AM EDT - 07/16/2019 01:30:00 AM EDT [facility] ([facility]) Attender: Yolanda Corrales 07/16/2019 12:00:00 AM EDT [facility] ([facility]) TEMPMHCTelemed 30" Psychotherapy Attender: Yolanda Corrales [facility] 07/01/2019 03:00:00 AM EDT - 07/01/2019 03:00:00 AM EDT [facility] ([facility]) Injectable Medication Administration w/ Monitoring & E ducation Attender: Kenya Brody [facility] 07/01/2019 01:30:00 AM EDT - 07/01/2019 01:30:00 AM EDT [facility] ([facility]) Attender: Yolanda Corrales 07/01/2019 12:00:00 AM EDT [facility] ([facility]) Attender: Kenya Brody 07/01/2019 12:00:00 AM EDT [facility] ([facility]) TEMPMHCTelemed 30" Psychotherapy Attender: Yolanda Corrales [facility] 06/25/2019 12:45:00 PM EDT - 06/25/2019 12:45:00 PM EDT [facility] ([facility]) Attender: Yolanda Corrales 06/25/2019 12:00:00 AM EDT [facility] ([facility]) Injectable Psychotropic Medication Administration (Inj ection Only) Attender: Cheyenne Allen [facility] 05/31/2019 08:30:00 AM EDT - 05/31/2019 08:30:00 AM EDT [facility] ([facility]) Attender: Cheyenne Allen 05/31/2019 12:00:00 AM EDT [facility] ([facility]) Injectable Medication Administration w/ Monitoring & E ducation Attender: Kenya Brody [facility] 05/29/2019 02:00:00 AM EDT - 05/29/2019 02:00:00 AM EDT [facility] ([facility]) Attender: Kenya Brody 05/29/2019 12:00:00 AM EDT [facility] ([facility]) [facility] Resident [address] [place] [address] 05/28/2019 12:00:00 AM EDT eCW1 ([facility]) [facility] [address] [place] [address] 05/13/2019 12:00:00 AM EST eCW1 ([facility]) Brief Individual Psychotherapy - 30 min Attender: [facility] 05/09/2019 05:00:00 AM EST - 05/09/2019 05:00:00 AM EST [facility] ([facility]) Attender: Yolanda Corrales 05/09/2019 12:00:00 AM EST [facility] ([facility]) Injectable Medication Administration w/ Monitoring & E ducation Attender: Kenya Brody [facility] 05/01/2019 02:00:00 AM EST - 05/01/2019 02:00:00 AM EST [facility] ([facility]) Attender: Kenya Brody 05/01/2019 12:00:00 AM EST [facility] ([facility]) Outpatient Attender: CAROLANN FERNANDEZ NP [facility] [place] forrester 04/24/2019 02:30:00 AM EST - 04/24/2019 02:30:00 AM EST [facility] ([facility]) Attender: CAROLANN FERNANDEZ NP 04/24/2019 12:00:00 AM EST [facility] ([facility]) [facility] Resident [address] [place] [address] 04/20/2019 12:00:00 AM EST eCW1 ([facility]) [facility] [address] [facility], [facility] [address] 04/18/2019 12:00:00 AM EST eCW1 ([facility]) Outpatient Attender: Shakira ROSARIO-BC DANA 04/16/2019 01: 51:03 PM [facility] Outpatient Attender: ABRAHAM CORTEZ 04/16/2019 12:24:00 PM [facility] Outpatient Attender: ABRAHAM CORTEZ 04/16/2019 12:23:00 PM [facility] Outpatient Attender: ABRAHAM CORTEZ 04/15/2019 04:41:01 PM [facility] Outpatient Attender: ABRAHAM CORTEZ 04/12/2019 04:10:00 PM [facility] Brief Individual Psychotherapy - 30 min Attender: Yolanda aguilar [facility] 04/11/2019 11:45:00 AM EST - 04/11/2019 11:45:00 AM EST [facility] ([facility]) Attender: Yolanda Corrales 04/11/2019 12:00:00 AM EST [facility] ([facility]) Outpatient Attender: ABRAHAM CORTEZ 04/08/2019 09:51:01 AM [facility] Outpatient Attender: ABRAHAM CORTEZ 04/08/2019 08:41:01 AM [facility] Outpatient Attender: ABRAHAM CORTEZ 04/08/2019 08:40:00 AM [facility] Outpatient Attender: ABRAHAM CORTEZ 04/08/2019 08:39:01 AM [facility] Outpatient Attender: ABRAHAM CORTEZ 04/08/2019 08:18:45 AM [facility] Outpatient Attender: Shakira ROSARIO-BC DANA 04/08/2019 08: 16:01 AM [facility] Outpatient Attender: ABRAHAM CORTEZ 04/08/2019 07:24:01 AM [facility] Outpatient Attender: ABRAHAM CORTEZ 04/08/2019 07:23:00 AM [facility] [address] [facility] [address] 04/08/2019 12:00:00 AM EST eCW1 ([facility]) Injectable Medication Administration w/ Monitoring & E ducation Attender: Kenya Brody [facility] 04/03/2019 02:00:00 AM EST - 04/03/2019 02:00:00 AM EST [facility] ([facility]) Attender: Kenya Brody 04/03/2019 12:00:00 AM EST [facility] ([facility]) [facility] [address] [facility] [address] 04/02/2019 12:00:00 AM EST eCW1 ([facility]) [facility] [address] [facility] [address] 04/02/2019 12:00:00 AM EST eCW1 ([facility]) [facility] [address] [place] [address] 04/01/2019 12:00:00 AM EST eCW1 ([facility]) [facility] [address] [place] [address] 04/01/2019 12:00:00 AM EST eCW1 ([facility]) [facility] Resident [address] [place] [address] 03/29/2019 12:00:00 AM EST eCW1 ([facility]) Attender: Yolanda Corrales 03/28/2019 12:00:00 AM EST [facility] ([facility]) Outpatient Attender: CAROLANN FERNANDEZ NP [facility] usama 03/27/2019 09:00:00 AM EST - 03/27/2019 09:00:00 AM EST [facility] ([facility]) Attender: CAROLANN FERNANDEZ NP 03/27/2019 12:00:00 AM EST [facility] ([facility]) Outpatient Attender: ABRAHAM CORTEZ 03/26/2019 09:01:07 PM EST [facility] Extended Individual Psychotherapy - 45 min Attender: [facility]es [facility] 03/25/2019 04:00:00 AM EST - 03/25/2019 04:00:00 AM EST [facility] ([facility]) [facility] [address] [facility] [address] 03/25/2019 12:00:00 AM EST eCW1 ([facility]) Outpatient Attender: ABRAHAM CORTEZ 03/14/2019 08:31:01 AM EST [facility] Extended Individual Psychotherapy - 45 min Attender: Jay Corrales [facility] 03/14/2019 05:30:00 AM EST - 03/14/2019 05:30:00 AM EST [facility] ([facility]) Attender: Yolanda Corrales 03/14/2019 12:00:00 AM EST [facility] ([facility]) Outpatient Attender: ABRAHAM Tobias [facility] 03/11/2019 10:56:00 AM EST [facility] Outpatient Attender: Shakira Tobias [employer] 03/11/2019 10: 54:01 AM EST [facility] Outpatient Att[facility]: [facility] 03/11/2019 10:49:00 AM [facility] Outpatient Attender: Branden Dalton MD 03/01/2019 12:20:01 PM EST [facility] Brief Individual Psychotherapy - 30 min Attender: Yolanda Delaney [facility] 03/01/2019 11:00:00 AM EST - 03/01/2019 11:00:00 AM EST [facility] ([facility]) Attender: Yolanda Corrales 03/01/2019 12:00:00 AM EST [facility] ([facility]) [address] [address] 02/20/2019 12:00:00 AM EST eCW1 ([facility]) Brief Individual Psychotherapy - 30 min Attender: Yolanda Delaney [facility] 02/12/2019 03:00:00 AM EST - 02/12/2019 03:00:00 AM EST [facility] ([facility]) Attender: Yolanda Corrales 02/12/2019 12:00:00 AM EST [facility] ([facility]) Functional Status Medications Medication Brand Name Start Date Product Form Dose Route Admi nistrative Instructions Pharmacy Instructions Status Indications Reaction Description Data Source(s) Clozapine 25 MG Oral Tablet [Clozaril] Clozaril 03/10/2020 12:0 0:00 AM EST 25 mg by mouth completed [id number] Clozaril by mouth [id number] 03/10/2020 05/18/2020 at bedtime 7 25 mg tablet 25979 103084 [id number] Rere Fernandez [id number] Nurse Practitioner [facility] ([facility]) Clozapine 25 MG Oral Tablet [Clozaril] Clozaril 03/10/2020 12:0 0:00 AM EST 25 mg by mouth completed [id number] Clozaril by mouth [id number] 03/10/2020 05/18/2020 at bedtime 7 25 mg tablet 52009 [id number] Rere Fernandez [id number] Nurse Practitioner [facility] ([facility]) Haloperidol 5 MG Oral Tablet haloperidol 01/27/2020 12:00:00 AM EST 5 mg by mouth completed [id number] haloperidol by mouth [id number] 01/2601/27/2020 twice a day 30 5 mg tablet 11157 304938 [id number] Lance Fernandez [id number] Nurse Practitioner [facility] ([facility]) Haloperidol 5 MG Oral Tablet haloperidol 12/26/2019 12:00:00 AM EDT 5 mg by mouth completed [id number] haloperidol by mouth [id number] 12/2501/27/2020 twice a day 30 5 mg tablet 77414 [id number] Lance Fernandez [id number] Nurse Practitioner [facility] ([facility]) Haloperidol 5 MG Oral Tablet haloperidol 12/26/2019 12:00:00 AM EDT 5 mg by mouth completed [id number] haloperidol by mouth [id number] 12/2502/24/2020 twice a day 30 5 mg tablet 55485 835786 [id number] Lance Fernandez [id number] Nurse Practitioner [facility] ([facility]) Sertraline 100 MG Oral Tablet sertraline 12/04/2019 12:00:00 AM EDT 100 mg completed [id number] sertraline 12/04/2019 02/24/2020 every morning 30 100 mg tablet 46758 130304 [id number] Carolann Fernandez [id number] Nurse Practitioner [facility] ([facility]) Haloperidol 5 MG Oral Tablet haloperidol 12/04/2019 12:00:00 AM EDT 5 mg completed [id number] haloperidol 12/04/2019 02/02/2020 30 5 mg tablet 17086 725200 [id number] Carolann Fernandez [id number] Nurse Mini palacios [facility] ([facility]) Sertraline 100 MG Oral Tablet sertraline 12/04/2019 12:00:00 AM EDT 100 mg completed [id number] sertraline 12/04/2019 01/27/2020 every morning 30 100 mg tablet 36659 530655 [id number] Carolann Fernandez [id number] Nurse Practitioner [facility] ([facility]) Trazodone Hydrochloride 50 MG Oral Tablet trazodone 2019 12:00:00 AM EDT 50 mg completed [id number] trazodone 11/04/2019 at bedtime 50 mg tablet as needed 81936 725963 [id number] Carolann Fernandez [id number] Nurse Practitioner [facility] ([facility]) 12 HR Bupropion Hydrochloride 100 MG Extended Release Oral Tablet [Wellbutrin] Wellbutrin SR 10/30/2019 12:00:00 AM EDT 100 mg by mouth co mpleted [id number] Wellbutrin SR by mouth [id number] 10/30/2019 11/29/2019 once a day 30 100 mg tablet sustained-release 12 hr 25208 542531 [id number] Rosalino Fernandez [id number] Nurse Practitioner [facility] ([facility]) doxycycline hyclate 100 MG Oral Capsule Doxycycline Hyclate 09/12/2019 12:00:00 AM EDT ORAL completed [facility] ([facility] ) Prazosin 1 MG Oral Capsule prazosin 08/27/2019 12:00:00 AM EDT 1 mg completed [id number] prazosin 08/27/2019 1 mg capsule 62566 825330 [id number] Carolann Fernandez [id number] Nurse Practitioner [facility] ([facility]) Cholecalciferol 1000 UNT Oral Tablet Vitamin D 25 MCG (1000 UT) Vitamin D 25 MCG (1000 UT) 08/21/2019 12:00:00 AM EDT 1.0 {tablet} a ctive Vitamin D 25 MCG (1000 UT) eCW1 ([facility]) Cholecalciferol 1000 UNT Oral Tablet Vitamin D 25 MCG (1000 UT) Vitamin D 25 MCG (1000 UT) 08/21/2019 12:00:00 AM EDT 1.0 {tablet} a ctive Vitamin D 25 MCG (1000 UT) eCW1 ([facility]) Cholecalciferol 1000 UNT Oral Tablet Vitamin D 25 MCG (1000 UT) Vitamin D 25 MCG (1000 UT) 08/21/2019 12:00:00 AM EDT 1.0 {tablet} a ctive Vitamin D 25 MCG (1000 UT) eCW1 ([facility]) Cholecalciferol 1000 UNT Oral Tablet Vitamin D 25 MCG (1000 UT) Vitamin D 25 MCG (1000 UT) 08/21/2019 12:00:00 AM EDT 1.0 {tablet} a ctive Vitamin D 25 MCG (1000 UT) eCW1 ([facility]) Cholecalciferol 1000 UNT Oral Tablet Vitamin D 25 MCG (1000 UT) Vitamin D 25 MCG (1000 UT) 08/21/2019 12:00:00 AM EDT 1.0 {tablet} a ctive Vitamin D 25 MCG (1000 UT) eCW1 ([facility]) Cholecalciferol 1000 UNT Oral Tablet Vitamin D 25 MCG (1000 UT) Vitamin D 25 MCG (1000 UT) 08/21/2019 12:00:00 AM EDT 1.0 {tablet} a ctive Vitamin D 25 MCG (1000 UT) eCW1 ([facility]) Cholecalciferol 1000 UNT Oral Tablet Vitamin D 25 MCG (1000 UT) Vitamin D 25 MCG (1000 UT) 08/21/2019 12:00:00 AM EDT 1.0 {tablet} a ctive Vitamin D 25 MCG (1000 UT) eCW1 ([facility]) Cholecalciferol 1000 UNT Oral Tablet Vitamin D 25 MCG (1000 UT) Vitamin D 25 MCG (1000 UT) 08/21/2019 12:00:00 AM EDT 1.0 {tablet} a ctive Vitamin D 25 MCG (1000 UT) eCW1 ([facility]) Cholecalciferol 1000 UNT Oral Tablet Vitamin D 25 MCG (1000 UT) Vitamin D 25 MCG (1000 UT) 08/21/2019 12:00:00 AM EDT 1.0 {tablet} a ctive Vitamin D 25 MCG (1000 UT) eCW1 ([facility]) Cholecalciferol 1000 UNT Oral Tablet Vitamin D 25 MCG (1000 UT) Vitamin D 25 MCG (1000 UT) 08/21/2019 12:00:00 AM EDT 1.0 {tablet} a ctive Vitamin D 25 MCG (1000 UT) eCW1 ([facility]) Cholecalciferol 1000 UNT Oral Tablet Vitamin D 25 MCG (1000 UT) Vitamin D 25 MCG (1000 UT) 08/21/2019 12:00:00 AM EDT 1.0 {tablet} a ctive Vitamin D 25 MCG (1000 UT) [facility] ([facility]) benztropine mesylate 1 MG Oral Tablet benztropine 07/23/2019 12:00 :00 AM EDT 1 mg completed [id number] benztropine 07/23/2019 11/08/19 20 30 1 mg tablet 38867 [id number] Carolann Fernandez [id number] Nurse P cheryl [facility] ([facility]) Sertraline 100 MG Oral Tablet sertraline 07/23/2019 12:00:00 AM EDT 100 mg completed [id number] sertraline 07/23/2019 12/29/2019 every morning 30 100 mg tablet 76214 [id number] Carolann Fernandez [id number] Nurse Practitioner [facility] ([facility]) Sertraline 100 MG Oral Tablet sertraline 07/23/2019 12:00:00 AM EDT 100 mg completed [id number] sertraline 07/23/2019 09/21/2019 every morning 30 100 mg tablet 00249 477145 [id number] Carolann Fernandez [id number] Nurse Practitioner [facility] ([facility]) benztropine mesylate 1 MG Oral Tablet benztropine 07/23/2019 12:00 :00 AM EDT 1 mg completed [id number] benztropine 07/23/2019 03/30/19 21 30 1 mg tablet 50273 836634 [id number] Carolann Fernandez [id number] Nurse P cheryl [facility] ([facility]) benztropine mesylate 1 MG Oral Tablet benztropine 07/23/2019 12:00 :00 AM EDT 1 mg completed [id number] benztropine 07/23/2019 09/21/19 20 30 1 mg tablet 22813 515359 [id number] Carolann Fernandez [id number] Nurse P ractitioner [facility] ([facility]) benztropine mesylate 1 MG Oral Tablet benztropine 07/23/2019 12:00 :00 AM EDT 1 mg completed [id number] benztropine 07/23/2019 02/24/20 20 30 1 mg tablet 44676 730424 [id number] Carolann Fernandez [id number] Nurse P ractitioner [facility] ([facility]) Haloperidol 5 MG Oral Tablet haloperidol 06/05/2019 12:00:00 AM EDT 5 mg completed [id number] haloperidol 06/05/2019 11/08/2019 30 5 mg tablet 61220 855016 [id number] Carolann Fernandez [id number] Nurse Practitione r [facility] ([facility]) Haloperidol 5 MG Oral Tablet haloperidol 06/05/2019 12:00:00 AM EDT 5 mg completed [id number] haloperidol 06/05/2019 12/29/2019 30 5 mg tablet 76053 [id number] Carolann Fernandez [id number] Nurse Practitione r [facility] ([facility]) Amantadine Hydrochloride 100 MG Oral Capsule amantadine HCl 06/05/2019 12:00:00 AM EDT 100 mg completed [id number] amantadine HCl 06/05/2019 02/24/2020 30 100 mg capsule 02683 [id number] [id number] Rosalino Fernandez [id number] Nurse Practitioner [facility] ([facility]) Prazosin 1 MG Oral Capsule prazosin 06/05/2019 12:00:00 AM EDT 1 mg completed [id number] prazosin 06/05/2019 30 1 mg capsule 70741 [id number] [id number] Kellen Matute [id number] Psychiatric/Mental Health [facility] ([facility]) Prazosin 1 MG Oral Capsule prazosin 06/05/2019 12:00:00 AM EDT 1 mg completed [id number] prazosin 06/05/2019 08/22/2019 30 1 mg capsule 10539 [id number] [id number] Carolann Fernandez [id number] Nurse Practitioner [facility] ([facility]) Amantadine Hydrochloride 100 MG Oral Capsule amantadine HCl 06/05/2019 12:00:00 AM EDT 100 mg completed [id number] amantadine HCl 30 100 mg capsule 88195 [id number] Carolann Fernandez [id number] Nurse Practitioner [facility] ([facility]) Amantadine Hydrochloride 100 MG Oral Capsule amantadine HCl 06/05/2019 12:00:00 AM EDT 100 mg completed [id number] amantadine HCl 06/05/2019 03/30/2020 30 100 mg capsule 92371 [id number] Rosalino Fernnadez [id number] Nurse Practitioner [facility] ([facility]) Amantadine Hydrochloride 100 MG Oral Capsule amantadine HCl 06/05/2019 12:00:00 AM EDT 100 mg completed [id number] amantadine HCl 06/05/2019 12/29/2019 30 100 mg capsule 62897 [id number] [id number] Rosalino Fernandez [id number] Nurse Practitioner [facility] ([facility]) Fluconazole 150 MG Oral Tablet Fluconazole 150 MG 05/13/2019 12:00: 00 AM EST 1.0 {tablet} active Fluconazole 150 MG eCW1 ([facility]) Fluconazole 150 MG Oral Tablet Fluconazole 150 MG 05/13/2019 12:00: 00 AM EST 1.0 {tablet} active Fluconazole 150 MG eCW1 ([facility]) Fluconazole 150 MG Oral Tablet Fluconazole 150 MG 05/13/2019 12:00: 00 AM EST active 1 tablet eCW1 ([facility]) Fluconazole 150 MG Oral Tablet Fluconazole 150 MG 05/13/2019 12:00: 00 AM EST 1.0 {tablet} active Fluconazole 150 MG eCW1 ([facility]) Fluconazole 150 MG Oral Tablet Fluconazole 150 MG 05/13/2019 12:00: 00 AM EST 1.0 {tablet} active Fluconazole 150 MG eCW1 ([facility]) Fluconazole 150 MG Oral Tablet Fluconazole 150 MG 05/13/2019 12:00: 00 AM EST 1.0 {tablet} active Fluconazole 150 MG eCW1 ([facility]) Fluconazole 150 MG Oral Tablet Fluconazole 150 MG 05/13/2019 12:00: 00 AM EST active 1 tablet eCW1 ([facility]) Fluconazole 150 MG Oral Tablet Fluconazole 150 MG 05/13/2019 12:00: 00 AM EST 1.0 {tablet} active Fluconazole 150 MG eCW1 ([facility]) Clotrimazole 10 MG/ML Topical Cream Clotrimazole 1 % Clotrim azole 1 % 04/01/2019 12:00:00 AM EST 1.0 {application_at_bedtime} ac tive Clotrimazole 1 % eCW1 ([facility]) Clotrimazole 10 MG/ML Topical Cream Clotrimazole 1 % Clotrim azole 1 % 04/01/2019 12:00:00 AM EST 1.0 {application_at_bedtime} ac tive Clotrimazole 1 % eCW1 ([facility]) Clotrimazole 10 MG/ML Topical Cream Clotrimazole 1 % Clotrim azole 1 % 04/01/2019 12:00:00 AM EST active 1 appli cation at bedtime eCW1 ([facility]) Clotrimazole 10 MG/ML Topical Cream Clotrimazole 1 % Clotrim azole 1 % 04/01/2019 12:00:00 AM EST active 1 appli cation at bedtime eCW1 ([facility]) Clotrimazole 10 MG/ML Topical Cream Clotrimazole 1 % Clotrim azole 1 % 04/01/2019 12:00:00 AM EST 1.0 {application_at_bedtime} ac tive Clotrimazole 1 % eCW1 ([facility]) Clotrimazole 10 MG/ML Topical Cream Clotrimazole 1 % Clotrim azole 1 % 04/01/2019 12:00:00 AM EST 1.0 {application_at_bedtime} ac tive Clotrimazole 1 % eCW1 ([facility]) Clotrimazole 10 MG/ML Topical Cream Clotrimazole 1 % Clotrim azole 1 % 04/01/2019 12:00:00 AM EST 1.0 {application_at_bedtime} ac tive Clotrimazole 1 % eCW1 ([facility]) Clotrimazole 10 MG/ML Topical Cream Clotrimazole 1 % Clotrim azole 1 % 04/01/2019 12:00:00 AM EST 1.0 {application_at_bedtime} ac tive Clotrimazole 1 % eCW1 ([facility]) Fluconazole 150 MG Oral Tablet Fluconazole 150 MG 04/01/2019 12:00: 00 AM EST active 1 tablet eCW1 ([facility]) Nicotine 4 MG/ACTUAT Inhalant Solution [Nicotrol] Nicotrol 1 0 MG Nicotrol 10 MG 03/29/2019 12:00:00 AM EST active Nicotrol 10 MG eCW1 ([facility]) Nicotine 4 MG/ACTUAT Inhalant Solution [Nicotrol] Nicotrol 1 0 MG Nicotrol 10 MG 03/29/2019 12:00:00 AM EST active Nicotrol 10 MG eCW1 ([facility]) Nicotine 4 MG/ACTUAT Inhalant Solution [Nicotrol] Nicotrol 1 0 MG Nicotrol 10 MG 03/29/2019 12:00:00 AM EST active Nicotrol 10 MG eCW1 ([facility]) Nicotine 4 MG/ACTUAT Inhalant Solution [Nicotrol] Nicotrol 1 0 MG Nicotrol 10 MG 03/29/2019 12:00:00 AM EST active Nicotrol 10 MG eCW1 ([facility]) Nicotine 4 MG/ACTUAT Inhalant Solution [Nicotrol] Nicotrol 1 0 MG Nicotrol 10 MG 03/29/2019 12:00:00 AM EST active Nicotrol 10 MG eCW1 ([facility]) Nicotine 4 MG/ACTUAT Inhalant Solution [Nicotrol] Nicotrol 1 0 MG Nicotrol 10 MG 03/29/2019 12:00:00 AM EST active Nicotrol 10 MG eCW1 ([facility]) Nicotine 4 MG/ACTUAT Inhalant Solution [Nicotrol] Nicotrol 1 0 MG Nicotrol 10 MG 03/29/2019 12:00:00 AM EST active 1 cartridge as needed( mdd of 4 cartridges) eCW1 ([facility]) Nicotine 4 MG/ACTUAT Inhalant Solution [Nicotrol] Nicotrol 1 0 MG Nicotrol 10 MG 03/29/2019 12:00:00 AM EST active 1 cartridge as needed( mdd of 4 cartridges) eCW1 ([facility]) Nicotine 4 MG/ACTUAT Inhalant Solution [Nicotrol] Nicotrol 1 0 MG Nicotrol 10 MG 03/29/2019 12:00:00 AM EST active Nicotrol 10 MG eCW1 ([facility]) Nicotine 4 MG/ACTUAT Inhalant Solution [Nicotrol] Nicotrol 1 0 MG Nicotrol 10 MG 03/29/2019 12:00:00 AM EST active 1 cartridge as needed( mdd of 4 cartridges) eCW1 ([facility]) Nicotine 4 MG/ACTUAT Inhalant Solution [Nicotrol] Nicotrol 1 0 MG Nicotrol 10 MG 03/29/2019 12:00:00 AM EST active Nicotrol 10 MG eCW1 ([facility]) Nicotine 4 MG/ACTUAT Inhalant Solution [Nicotrol] Nicotrol 1 0 MG Nicotrol 10 MG 03/29/2019 12:00:00 AM EST active Nicotrol 10 MG eCW1 ([facility]) Nicotine 4 MG/ACTUAT Inhalant Solution [Nicotrol] Nicotrol 1 0 MG Nicotrol 10 MG 03/29/2019 12:00:00 AM EST active Nicotrol 10 MG eCW1 ([facility]) Nicotine 4 MG/ACTUAT Inhalant Solution [Nicotrol] Nicotrol 1 0 MG Nicotrol 10 MG 03/29/2019 12:00:00 AM EST active Nicotrol 10 MG eCW1 ([facility]) Trazodone Hydrochloride 50 MG Oral Tablet trazodone 2018 12:00:00 AM EST 50 mg completed [id number] trazodone 02/21/2019 04/0 09/2019 30 50 mg tablet [id number] Carolann Fernandez [id number] Nurse Practitioner [facility] ([facility]) Trazodone Hydrochloride 50 MG Oral Tablet trazodone 2018 12:00:00 AM EST 50 mg completed [id number] trazodone 02/21/2019 06/0 06/2019 30 50 mg tablet 06333 [id number] Carolann Fernandez [id number] Nurse Practitioner [facility] ([facility]) Trazodone Hydrochloride 50 MG Oral Tablet trazodone 2018 12:00:00 AM EST 50 mg completed [id number] trazodone 02/21/201909/18 30 50 mg tablet 15046 934026 [id number] Carolann Fernandez [id number] Nurse Practitioner [facility] ([facility]) benztropine mesylate 1 MG Oral Tablet benztropine 02/21/2019 12:00 :00 AM EST 1 mg completed [id number] benztropine 02/21/2019 06/25/19 20 30 1 mg tablet 20117 [id number] [id number] Carolann Fernandez [id number] Nurse P dyantitioner [facility] ([facility]) benztropine mesylate 1 MG Oral Tablet benztropine 02/21/2019 12:00 :00 AM EST 1 mg completed [id number] benztropine 02/21/2019 30 1 mg tablet 98794 731006 [id number] Carolann Fernandez [id number] Nurse Torrese r [facility] ([facility]) Haloperidol 5 MG Oral Tablet haloperidol 02/05/2019 12:00:00 AM EST 5 mg by mouth completed [id number] haloperidol by mouth [id number] 02/0505/26/2019 twice a day 30 5 mg tablet 12162 202239 [id number] Lance Fernandez [id number] Nurse Practitioner [facility] ([facility]) Haloperidol 5 MG Oral Tablet haloperidol 02/05/2019 12:00:00 AM EST 5 mg by mouth completed [id number] haloperidol by mouth [id number] 02/0505/26/2019 twice a day 30 5 mg tablet 34275 [id number] Lance Fernandez [id number] Nurse Practitioner [facility] ([facility]) Haloperidol 5 MG Oral Tablet haloperidol 02/05/2019 12:00:00 AM EST 5 mg by mouth completed [id number] haloperidol by mouth [id number] 02/0504/06/2019 twice a day 30 5 mg tablet 14580 033316 [id number] Lance Fernandez [id number] Psychiatric/Mental Health [facility] ([facility]) Ingrezza Ingrezza 12/11/2018 12:00:00 AM EDT 40 mg by mouth completed [id number] Ingrezza by mouth [id number] 12/11/2018 02/09/2019 every morning 30 40 mg capsule 23665 355348 [id number] Carolann Fernandez [id number] P sychiatric/Mental Health [facility] ([facility]) Ingrezza Ingrezza 12/11/2018 12:00:00 AM EDT 40 mg by mouth completed [id number] Ingrezza by mouth [id number] 12/11/2018 02/09/2019 every morning 30 40 mg capsule 25396 [id number] [id number] Carolann Fernandez [id number] P sychiatric/Mental Health [facility] ([facility]) Ingrezza Ingrezza 12/11/2018 12:00:00 AM EDT 40 mg by mouth completed [id number] Ingrezza by mouth [id number] 12/11/2018 02/09/2019 every morning 30 40 mg capsule 21580 [id number] [id number] Carolann Fernandez [id number] P sychiatric/Mental Health [facility] ([facility]) Amantadine Hydrochloride 100 MG Oral Capsule amantadine HCl 11/14/2018 12:00:00 AM EDT 100 mg by mouth completed [id number] amantadine HCl by mouth [id number] 11/14/2018 05/26/2019 at bedtime 30 100 mg capsule 50916 1 96745 [id number] Carolann Fernandez [id number] Nurse Practitioner [facility] ([facility]) Amantadine Hydrochloride 100 MG Oral Capsule amantadine HCl 11/14/2018 12:00:00 AM EDT 100 mg by mouth completed [id number] amantadine HCl by mouth [id number] 11/14/2018 05/26/2019 at bedtime 30 100 mg capsule 73443 1 [id number] [id number] Carolann Jim [id number] Nurse Practitioner [facility] ([facility]) Amantadine Hydrochloride 100 MG Oral Capsule amantadine HCl 11/14/2018 12:00:00 AM EDT 100 mg by mouth completed [id number] amantadine HCl by mouth [id number] 11/14/2018 04/06/2019 at bedtime 30 100 mg capsule 88642 1 [id number] Carolann Jim [id number] Nurse Practitioner [facility] ([facility]) Amantadine Hydrochloride 100 MG Oral Capsule amantadine HCl 11/14/2018 12:00:00 AM EDT 100 mg by mouth completed [id number] amantadine HCl by mouth [id number] 11/14/2018 04/06/2019 at bedtime 30 100 mg capsule 09141 1 [id number] [id number] Carolann Jim [id number] Psychiatric/Mental Health [facility] ([facility]) Haldol Decanoate Haldol Decanoate 10/10/2018 12:00:00 AM EDT 100 mg/mL completed [id number] Haldol Decanoate intramuscularly 10/1005/01/2019 every four weeks 28 100 mg/mL solution 05166 [id number] Carolannvivian Fernandez [id number] Psychiatric/Mental Health [facility] ([facility]) benztropine mesylate 1 MG Oral Tablet benztropine 08/16/2018 12:00 :00 AM EDT 1 mg by mouth completed [id number] benztropine by mouth C38 288 08/16/2018 04/06/2019 twice a day 30 1 mg tablet 50401 127430 [id number] Lance Fernandez [id number] Psychiatric/Mental Health [facility] ([facility]) Trazodone Hydrochloride 50 MG Oral Tablet trazodone 2018 12:00:00 AM EDT 50 mg by mouth completed [id number] trazodone by mouth C382 88 08/16/2018 04/06/2019 at bedtime 30 50 mg tablet 52826 237891 [id number] Rere Fernandez [id number] Psychiatric/Mental Health [facility] ([facility]) benztropine mesylate 1 MG Oral Tablet benztropine 08/16/2018 12:00 :00 AM EDT 1 mg by mouth completed [id number] benztropine by mouth C38 288 08/16/2018 04/06/2019 twice a day 30 1 mg tablet 20925 [id number] Lance Fernandez [id number] Psychiatric/Mental Health [facility] ([facility]) Trazodone Hydrochloride 50 MG Oral Tablet trazodone 2018 12:00:00 AM EDT 50 mg by mouth completed [id number] trazodone by mouth C382 88 08/16/2018 04/06/2019 at bedtime 30 50 mg tablet 28061 [id number] Rere Fernandez [id number] Psychiatric/Mental Health [facility] ([facility]) benztropine mesylate 1 MG Oral Tablet benztropine 08/16/2018 12:00 :00 AM EDT 1 mg by mouth completed [id number] benztropine by mouth C38 288 08/16/2018 04/06/2019 twice a day 30 1 mg tablet 05157 [id number] Lance Fernandez [id number] Psychiatric/Mental Health [facility] ([facility]) Trazodone Hydrochloride 50 MG Oral Tablet trazodone 2018 12:00:00 AM EDT 50 mg by mouth completed [id number] trazodone by mouth C382 88 08/16/2018 04/06/2019 at bedtime 30 50 mg tablet 75330 377325 [id number] Rere Fernandez [id number] Psychiatric/Mental Health [facility] ([facility]) Prazosin 1 MG Oral Capsule prazosin 07/18/2018 12:00:00 AM EDT 1 mg by mouth completed [id number] prazosin by mouth [id number] 07/18/2018 at bedtime 30 1 mg capsule 77965 545167 [id number] Carolann Fernandez 3 [id number] Psychiatric/Mental Health [facility] ([facility]) Prazosin 1 MG Oral Capsule prazosin 07/18/2018 12:00:00 AM EDT 1 mg by mouth completed [id number] prazosin by mouth [id number] 07/18/2018 at bedtime 30 1 mg capsule 75878 [id number] [id number] Carolann Fernandez 3 [id number] Nurse Practitioner [facility] ([facility]) Prazosin 1 MG Oral Capsule prazosin 07/18/2018 12:00:00 AM EDT 1 mg by mouth completed [id number] prazosin by mouth [id number] 07/18/201810/2019 at bedtime 30 1 mg capsule 31366 544193 [id number] Carolann Fernandez 3 [id number] Nurse Practitioner [facility] ([facility]) Prazosin 1 MG Oral Capsule prazosin 07/18/2018 12:00:00 AM EDT 1 mg by mouth completed [id number] prazosin by mouth [id number] 07/18/201810/2019 at bedtime 30 1 mg capsule 10409 163681 [id number] Carolann Fernandez 3 [id number] Nurse Practitioner [facility] ([facility]) Sertraline 100 MG Oral Tablet sertraline 03/27/2018 12:00:00 AM EST 100 mg completed [id number] sertraline 03/27/2018 05/06/2019 every morning 30 100 mg tablet 23395 600908 [id number] Carolann Fernandez [id number] Psychiatric/Mental Health [facility] ([facility]) Sertraline 100 MG Oral Tablet sertraline 03/27/2018 12:00:00 AM EST 100 mg completed [id number] sertraline 03/27/2018 05/06/2019 every morning 30 100 mg tablet 53393 825963 [id number] Carolann Fernandez [id number] Psychiatric/Mental Health [facility] ([facility]) Sertraline 100 MG Oral Tablet sertraline 03/27/2018 12:00:00 AM EST 100 mg completed [id number] sertraline 03/27/2018 05/06/2019 every morning 30 100 mg tablet 03993 [id number] [id number] Carolann Jim [id number] Nurse Practitioner [facility] Insurance Providers Payer name Policy type / Coverage type Policy ID Covered democrat ID Covered democrat's relationship to mahajan Policy Mahajan Plan Information [facility] [id number] SP [id number] [facility] COMMUNITY PLAN MCDO [id number] SP [id number] [facility] MEDICAID [id number] S [id number] [facility] MEDICAID [id number] S [id number] [facility](MCAID) O [id number] S [id number] [facility] I [id number] Self [id number] Managed Care - [facility] Community Plan P [id number] S [id number] Medicaid S [id number] S [id number] Managed Care - [facility] Community Plan P [id number] S [id number] Managed Care - [facility] P [id number] S [id number] Medicaid S [id number] S [id number] [facility] MEDICAID [id number] S [id number] [facility] MEDICAID [id number] S [id number] [facility]-Medicaid [id number] [facility]-Medicaid [id number] [facility]-Medicaid [id number] [facility]-Medicaid [id number] [facility]-Medicaid [id number] ANSI-Medicaid [id number] [facility] [id number] SP [id number] [employer] COMMUNITY PLAN MCDO [id number] SP [id number] MEDICAID [id number] SP [id number] [facility] [id number] SP [id number] [facility] [id number] SP [id number] Managed Care - [facility] P [id number] S [id number] [facility] I [id number] Self [id number] [facility] I [id number] Self [id number] [facility] I [id number] Self [id number] [facility] Community Plan Commercial [id number] Self [id number] [facility] Community Plan Commercial [id number] Self [id number] Medicaid S [id number] [facility] [id number] S [id number] [facility] COMMUNITY PLAN MCDO [id number] SP [id number] [facility] [id number] SP [id number] [facility] OFFICE OF MENTAL HEALTH [id number] S [id number] [facility] [id number] S [id number] [facility](MCAID) O [id number] S [id number] MEDICAID [id number] S [id number] MEDICAID M [id number] S [id number] [facility] [id number] SP [id number] [facility] [id number] SP [id number] [facility] [id number] SP [id number] MEDICAID [id number] SP [id number] SELF PAY ONLY [id number] SP [id number] [facility] [id number] SP [id number] [facility](MCAID) O [id number] S [id number] [facility] [id number] SP [id number] [facility] [id number] SP [id number] [facility] [id number] SP [id number] [employer] [employer] HMO [id number] Problems, Conditions, and Diagnoses Code Display Name Description Problem Type Effective Dates Data Source(s) F25.9 Schizoaffective disorder, unspecified Schizoaffective Disorder Condition 04/07/2020 12:00:00 AM EST [facility] ([facility]) Z72.0 Tobacco use Tobacco Use Disorder, Mild Condition 1 05/04/2019 12:00:00 AM EST [facility] ([facility]) F51.4 13367379 Night terrors, adult Problem 12/20/2019 12:0 0:00 AM EDT eCW1 ([facility]) E66.09 [id number] Class 1 obesity due to excess calories without serious comorbidity in adult, unspecified BMI Problem 12/20/2019 12:00:00 AM EDT eCW1 ([facility]) 521.00 Dental caries Dental caries 10/18/2019 02:29:07 PM EDT [facility] F17.219 70302783 Cigarette nicotine dependence wi th nicotine-induced disorder Problem 09/05/2019 12:00:00 AM EDT eCW1 ([facility]) F17.210 73921747 Cigarette nicotine dependence without com plication Problem 07/22/2019 12:00:00 AM EDT eCW1 ([facility]) F17.210 71967003 Cigarette nicotine dependence without com plication Problem 07/22/2019 12:00:00 AM EDT eCW1 ([facility]) F50.89 17825971 Pica in adults Problem 05/28/2019 12:00:00 A M EDT eCW1 ([facility]) F50.89 15371594 Pica in adults Problem 05/28/2019 12:00:00 A M EDT eCW1 ([facility]) 305.1 Tobacco use Tobacco use 04/08/2019 08:16:00 AM EST [facility] F17.200 87275545 Tobacco dependence Problem 03/29/2019 12:00: 00 AM EST eCW1 ([facility]) F17.200 04233450 Tobacco dependence Problem 03/29/2019 12:00: 00 AM EST eCW1 ([facility]) F25.0 Schizoaffective disorder, bipolar type S CHIZOAFFECTIVE DISORDER, BIPOLAR TYPE Diagnosis 04/07/2020 08:05:00 AM [facility] l Z79.899 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 Diagnosis 03/04/2020 09:48:00 PM [facility] l K52.9 Noninfective gastroenteritis and colitis , unspecified NONINFECTIVE GASTROENTERITIS AND COLITIS, UNSPECIF Diagnosis 03/04/2020 09:48:00 PM [facility] R11.2 Nausea with vomiting, unspecified NAUSEA WITH VO MITING, UNSPECIFIED Diagnosis 03/04/2020 09:48:00 PM [facility] suicidal ideations suicidal ideations Diagnosis 0 11:26:00 PM [facility] Surgeries/Procedures Procedure Description Date Indications Data Source(s) OFFICE OUTPATIENT VISIT 15 MINUTES 04/07 12:00:00 AM EST - 04/07/2020 12:00:00 AM EST [facility] ([facility]) OFFICE OUTPATIENT VISIT 15 MINUTES 04/07/2020 12:00:00 AM EST [facility] ([facility]) Brief Individual Psychotherapy - 30 min 04/07/2020 12:00:00 AM EST - 04/07/2020 12:00:00 AM EST [facility] ([facility]) Brief Individual Psychotherapy - 30 min 04/06/2020 12: 00:00 AM EST [facility] ([facility]) Brief Individual Psychotherapy - 30 min 03/30/2020 12:00:00 AM EST - 03/30/2020 12:00:00 AM EST [facility] ([facility]) Brief Individual Psychotherapy - 30 min 03/30/2020 12: 00:00 AM EST [facility] ([facility]) OFFICE OUTPATIENT VISIT 15 MINUTES 03/24 12:00:00 AM EST - 03/24/2020 12:00:00 AM EST [facility] ([facility]) OFFICE OUTPATIENT VISIT 15 MINUTES 03/24/2020 12:00:00 AM EST [facility] ([facility]) OFFICE OUTPATIENT VISIT 15 MINUTES 03/10 12:00:00 AM EST - 03/10/2020 12:00:00 AM EST [facility] ([facility]) Psychotherapy ADD ON - 30 Minutes 03/10/2020 12:00:00 AM EST [facility] ([facility]) OFFICE OUTPATIENT VISIT 15 MINUTES 03/10/2020 12:00:00 AM EST [facility] ([facility]) Brief Individual Psychotherapy - 30 min 03/03/2020 12:00:00 AM EST - 03/03/2020 12:00:00 AM EST [facility] ([facility]) Brief Individual Psychotherapy - 30 min 03/03/2020 12: 00:00 AM EST [facility] ([facility]) OFFICE OUTPATIENT VISIT 15 MINUTES 01/26 12:00:00 AM EST - 01/27/2020 12:00:00 AM EST [facility] ([facility]) OFFICE OUTPATIENT VISIT 15 MINUTES 01/27/2020 12:00:00 AM EST [facility] ([facility]) Brief Individual Psychotherapy - 30 min 01/21/2020 12:00:00 AM EST - 01/21/2020 12:00:00 AM EST [facility] ([facility]) Brief Individual Psychotherapy - 30 min 01/21/2020 12: 00:00 AM EST [facility] ([facility]) Comprehensive medication services, per 15 minutes 01/16/2020 12:00:00 AM EDT - 01/16/2020 12:00:00 AM EDT [facility] ([facility]) Comprehensive medication services, per 15 minutes 01/16/2020 12:00:00 AM EDT [facility] ([facility]) Extended Individual Psychotherapy - 45 min 12/30/2019 12:00:00 AM EDT - 12/30/2019 12:00:00 AM EDT [facility] ([facility]) Extended Individual Psychotherapy - 45 min 0 12:00:00 AM EDT [facility] ([facility]) MHC Telemed E/M Lvl 3--Est pt 12/26/2019 12:00:00 AM EDT - 12/26/2019 12:00:00 AM EDT [facility] ([facility]) [facility] Telemed E/M Lvl 3--Est pt 12/26/2019 12:00:00 AM E DT [facility] ([facility]) uro PVR (Post Voiding Residual) Bladder Scan 0 12:00:00 AM EDT eCW1 ([facility]) THERAPEUTIC PROPHYLACTIC/DX INJECTION SUBQ/IM 12/23/2019 12:00:00 AM EDT - 12/23/2019 12:00:00 AM EDT [facility] ([facility]) THERAPEUTIC PROPHYLACTIC/DX INJECTION SUBQ/IM 12/23/19 20 12:00:00 AM EDT [facility] ([facility]) THERAPEUTIC PROPHYLACTIC/DX INJECTION SUBQ/IM 12/20/2019 12:00:00 AM EDT - 12/20/2019 12:00:00 AM EDT [facility] ([facility]) THERAPEUTIC PROPHYLACTIC/DX INJECTION SUBQ/IM 12/19/19 20 12:00:00 AM EDT [facility] ([facility]) [facility] Telemed E/M Lvl 3--Est pt 11/27/2019 12:00:00 AM EDT - 11/27/2019 12:00:00 AM EDT [facility] ([facility]) Psychotherapy ADD ON - 30 Minutes 11/27/2019 12:00:00 AM EDT [facility] ([facility]) [facility] Telemed E/M Lvl 3--Est pt 11/27/2019 12:00:00 AM E DT [facility] ([facility]) Comprehensive medication services, per 15 minutes 11/21/2019 12:00:00 AM EDT - 11/21/2019 12:00:00 AM EDT [facility] ([facility]) Comprehensive medication services, per 15 minutes 11/21/2019 12:00:00 AM EDT [facility] ([facility]) TEMPMHCTelemed 30" Psychotherapy 020 12:00:00 AM EDT - 09/19/2019 12:00:00 AM EDT [facility] ([facility]) TEMPMHCTelemed 30" Psychotherapy 09/19/2019 12:00:00 A M EDT [facility] ([facility]) MHC Telemed E/M Lvl 3--Est pt 09/09/2019 12:00:00 AM EDT - 09/09/2019 12:00:00 AM EDT [facility] ([facility]) MHC Telemed E/M Lvl 3--Est pt 09/09/2019 12:00:00 AM E DT [facility] ([facility]) Endoscopy Nasal/Sinus W/ Control Of Epistaxis 09/05/19 12:00:00 AM EDT [facility] ([facility] ) TEMPMHCTelemed 30" Psychotherapy 12:00:00 AM EDT - 08/14/2019 12:00:00 AM EDT [facility] ([facility]) TEMPMHCTelemed 30" Psychotherapy 08/14/2019 12:00:00 A M EDT [facility] ([facility]) TEMPMHCTelemed 30" Psychotherapy 12:00:00 AM EDT - 07/30/2019 12:00:00 AM EDT [facility] ([facility]) TEMPMHCTelemed 30" Psychotherapy 07/30/2019 12:00:00 A M EDT [facility] ([facility]) Comprehensive medication services, per 15 minutes 07/30/2019 12:00:00 AM EDT - 07/30/2019 12:00:00 AM EDT [facility] ([facility]) Comprehensive medication services, per 15 minutes 07/29/2019 12:00:00 AM EDT [facility] ([facility]) OFFICE OUTPATIENT VISIT 15 MINUTES 07/22 12:00:00 AM EDT - 07/23/2019 12:00:00 AM EDT [facility] ([facility]) OFFICE OUTPATIENT VISIT 15 MINUTES 07/23/2019 12:00:00 AM EDT [facility] ([facility]) TEMPMHCTelemed 30" Psychotherapy 04/28/2 020 12:00:00 AM EDT - 07/16/2019 12:00:00 AM EDT [facility] ([facility]) TEMPMHCTelemed 30" Psychotherapy 07/16/2019 12:00:00 A M EDT [facility] ([facility]) TEMPMHCTelemed 30" Psychotherapy 020 12:00:00 AM EDT - 07/01/2019 12:00:00 AM EDT [facility] ([facility]) TEMPMHCTelemed 30" Psychotherapy 07/01/2019 12:00:00 A M EDT [facility] ([facility]) Comprehensive medication services, per 15 minutes 07/01/2019 12:00:00 AM EDT - 07/01/2019 12:00:00 AM EDT [facility] ([facility]) Comprehensive medication services, per 15 minutes 07/01/2019 12:00:00 AM EDT [facility] ([facility]) TEMPMHCTelemed 30" Psychotherapy 020 12:00:00 AM EDT - 06/25/2019 12:00:00 AM EDT [facility] ([facility]) TEMPMHCTelemed 30" Psychotherapy 06/25/2019 12:00:00 A M EDT [facility] ([facility]) THERAPEUTIC PROPHYLACTIC/DX INJECTION SUBQ/IM 05/31/2019 12:00:00 AM EDT - 05/31/2019 12:00:00 AM EDT [facility] [facility]) THERAPEUTIC PROPHYLACTIC/DX INJECTION SUBQ/IM 05/31/19 20 12:00:00 AM EDT [facility] ([facility]) Comprehensive medication services, per 15 minutes 05/29/2019 12:00:00 AM EDT - 05/29/2019 12:00:00 AM EDT [facility] ([facility]) Comprehensive medication services, per 15 minutes 05/29/2019 12:00:00 AM EDT [facility] ([facility]) Brief Individual Psychotherapy - 30 min 05/09/2019 12:00:00 AM EST - 05/09/2019 12:00:00 AM EST [facility] ([facility]) Brief Individual Psychotherapy - 30 min 05/09/2019 12: 00:00 AM EST [facility] ([facility]) Comprehensive medication services, per 15 minutes 05/01/2019 12:00:00 AM EST - 05/01/2019 12:00:00 AM EST [facility] ([facility]) Comprehensive medication services, per 15 minutes 05/01/2019 12:00:00 AM EST [facility] ([facility]) OFFICE OUTPATIENT VISIT 15 MINUTES 04/24 12:00:00 AM EST - 04/24/2019 12:00:00 AM EST [facility] ([facility]) OFFICE OUTPATIENT VISIT 15 MINUTES 04/24/2019 12:00:00 AM EST [facility] ([facility]) Brief Individual Psychotherapy - 30 min 04/11/2019 12:00:00 AM EST - 04/11/2019 12:00:00 AM EST [facility] ([facility]) Brief Individual Psychotherapy - 30 min 04/11/2019 12: 00:00 AM EST [facility] ([facility]) Comprehensive medication services, per 15 minutes 04/03/2019 12:00:00 AM EST - 04/03/2019 12:00:00 AM EST [facility] ([facility]) Comprehensive medication services, per 15 minutes 04/03/2019 12:00:00 AM EST [facility] ([facility]) SMEAR, WET MOUNT, SALINE/INK 04/01/2019 12:00:00 AM ES T eCW1 ([facility]) Extended Individual Psychotherapy - 45 min 03/28/2019 12:00:00 AM EST - 03/28/2019 12:00:00 AM EST [facility] ([facility]) OFFICE OUTPATIENT VISIT 15 MINUTES 03/27 12:00:00 AM EST - 03/27/2019 12:00:00 AM EST [facility] ([facility]) OFFICE OUTPATIENT VISIT 15 MINUTES 03/27/2019 12:00:00 AM EST [facility] ([facility]) Extended Individual Psychotherapy - 45 min 0 12:00:00 AM EST [facility] ([facility]) Extended Individual Psychotherapy - 45 min 03/14/2019 12:00:00 AM EST - 03/14/2019 12:00:00 AM EST [facility] ([facility]) Extended Individual Psychotherapy - 45 min 9 12:00:00 AM EST [facility] ([facility]) Brief Individual Psychotherapy - 30 min 03/01/2019 12:00:00 AM EST - 03/01/2019 12:00:00 AM EST [facility] ([facility]) Brief Individual Psychotherapy - 30 min 03/01/2019 12: 00:00 AM EST [facility] ([facility]) Brief Individual Psychotherapy - 30 min 02/12/2019 12:00:00 AM EST - 02/12/2019 12:00:00 AM EST [facility] ([facility]) Brief Individual Psychotherapy - 30 min 02/12/2019 12: 00:00 AM EST [facility] ([facility]) Results ID Date Data Source [id number] 04/07/2020 08:31:00 AM [facility] FAX Name Value Range Interpretation Code Description Data Ce rce(s) Supporting Document(s) WHITE BLOOD COUNT 6.2 K/mm3 4.0-10.0 [facility] 3.81 M/mm3 4.00-5.50 L [facility] l HEMOGLOBIN 11.4 gm/dL 12.0-16.0 L [facility] HEMATOCRIT 34.1 % 36.0-48.8 L [facility] MEAN CELL VOLUME 89.5 fl 80-96 [facility] l MEAN CORPUSCULAR HEMOGLOBIN 29.9 pg 27.0-31.0 [facility] MEAN CORPUSCULAR HGB CONC 33.4 g/dl 32.0-36.0 [facility] RED CELL DISTRIBUTION WIDTH 13.3 % 10.0-14.5 [facility] PLATELET COUNT 270 K/mm3 172-450 [facility] MEAN PLATELET VOLUME 9.4 fl 9.0-13.0 [facility] pital GRAN % 53.2 % 50-80.0 [facility] IG% 0.2 % 0.0-0.2 [facility] LYMPH % 34.8 % 25.0-50.0 [facility] MONO % 9.6 % 2.0-10.0 [facility] EOS % 1.9 % 0-5.0 [facility] BASO % 0.3 % 0.0-2.0 [facility] GRAN # 3.3 K/mm3 2.0-8.00 [facility] IG# 0.0 K/mm3 0.0-0.2 [facility] LYMPH # 2.2 K/mm3 1.0-5.0 [facility] MONO # 0.6 K/mm3 0.10-1.20 [facility] EOS # 0.1 K/mm3 0.0-0.5 [facility] BASO # 0.0 K/mm3 0.0-0.2 [facility] ID Date Data Source [id number] 03/31/2020 08:41:00 AM EST [facility] FA[facility] Name Value Range Interpretation Code Description Data Ce rce(s) Supporting Document(s) WHITE BLOOD COUNT 5.2 K/mm3 4.0-10.0 [facility] 3.80 M/mm3 4.00-5.50 L [facility] l HEMOGLOBIN 11.2 gm/dL 12.0-16.0 L [facility] HEMATOCRIT 34.2 % 36.0-48.8 L [facility] MEAN CELL VOLUME 90.0 fl 80-96 [facility] l MEAN CORPUSCULAR HEMOGLOBIN 29.5 pg 27.0-31.0 [facility] MEAN CORPUSCULAR HGB CONC 32.7 g/dl 32.0-36.0 [facility] RED CELL DISTRIBUTION WIDTH 13.6 % 10.0-14.5 [facility] PLATELET COUNT 252 K/mm3 172-450 [facility] MEAN PLATELET VOLUME 9.0 fl 9.0-13.0 [facility] pital GRAN % 54.5 % 50-80.0 [facility] IG% 0.2 % 0.0-0.2 [facility] LYMPH % 34.9 % 25.0-50.0 [facility] MONO % 7.3 % 2.0-10.0 [facility] EOS % 2.7 % 0-5.0 [facility] BASO % 0.4 % 0.0-2.0 [facility] GRAN # 2.8 K/mm3 2.0-8.00 [facility] IG# 0.0 K/mm3 0.0-0.2 [facility] LYMPH # 1.8 K/mm3 1.0-5.0 [facility] MONO # 0.4 K/mm3 0.10-1.20 [facility] EOS # 0.1 K/mm3 0.0-0.5 [facility] BASO # 0.0 K/mm3 0.0-0.2 [facility] ID Date Data Source [id number] 03/24/2020 09:25:00 AM EST [facility] FAX [phone] Name Value Range Interpretation Code Description Data Ce rce(s) Supporting Document(s) VALPROIC ACID (DEPAKOTE) 70.6 mcg/mL 50.0-100.0 [facility] ID Date Data Source [id number] 03/24/2020 08:36:00 AM [facility] l FAX [phone] Name Value Range Interpretation Code Description Data Ce rce(s) Supporting Document(s) WHITE BLOOD COUNT 5.7 K/mm3 4.0-10.0 [facility] RED [facility]LOOD COUNT 3.61 M/mm3 4.00-5.50 L [facility] l HEMOGLOBIN 10.8 gm/dL 12.0-16.0 L [facility] HEMATOCRIT 32.5 % 36.0-48.8 L [facility] MEAN CELL VOLUME 90.0 fl 80-96 [facility] MEAN CORPUSCULAR HEMOGLOBIN 29.9 pg 27.0-31.0 [facility] MEAN CORPUSCULAR HGB CONC 33.2 g/dl 32.0-36.0 [facility] RED CELL DISTRIBUTION WIDTH 13.3 % 10.0-14.5 [facility] PLATELET COUNT 258 K/mm3 172-450 [facility] MEAN PLATELET VOLUME 8.9 fl 9.0-13.0 L [facility] pital GRAN % 50.0 % 50-80.0 [facility] IG% 0.5 % 0.0-0.2 H [facility] LYMPH % 38.4 % 25.0-50.0 [facility] MONO % 8.1 % 2.0-10.0 [facility] EOS % 2.6 % 0-5.0 [facility] BASO % 0.4 % 0.0-2.0 [facility] GRAN # 2.8 K/mm3 2.0-8.00 [facility] IG# 0.0 K/mm3 0.0-0.2 [facility] LYMPH # 2.2 K/mm3 1.0-5.0 [facility] MONO # 0.5 K/mm3 0.10-1.20 [facility] EOS # 0.2 K/mm3 0.0-0.5 [facility] BASO # 0.0 K/mm3 0.0-0.2 [facility] ID Date Data Source [id number] 03/05/2020 07:29:00 AM [facility] Patient: EVELIO KUNZ Observation Report - [facility].VisitID: [id number] [place] [address] [phone], FRegistration Date/Time: 03/04/2020 21:24 Weight:91.6 kg. Height/Length:64 inches. BMI:34.7 PAST HISTORYProblems:Dental Pain.Anemia.Abdominal Pain.Sleep problem.Schizoaffective Disorder.Depression. Additional Surgeries:Cervical sx. Medications:Depakote Oral 500 mg, daily, last dose 03/04/20am.Amantadine HCl Oral 100 mg, daily, last dose 03/04/20am.Cogentin 1mg, 2x a day, last dose 03/04/20pm.Colace Oral 50 mg, daily, last dose 03/04/20am.Ferrous Sulfate Oral 325 mg, daily, last dose 03/04/20.Folic Acid Oral, daily, last dose 03/04/20.Prazosin HCl Oral 1 mg, daily at bedtime, last dose 03/04/20.TraZODone HCl Oral 100 mg, daily, last dose 03/04/20am. Allergies:Invega.(rash)Penicillins.(hives). FAMILY HISTORYNegative. No significant family medical history. (Electronically signed by Mikael Curtis 03/05/2020 07:01) Name Value Range Interpretation Code Description Data Ce rce(s) Supporting Document(s) ID Date Data Source [id number] 03/04/2020 10:39:00 PM EST [facility] TSYSORDER [id number] Name Value Range Interpretation Code Description Data Ce rce(s) Supporting Document(s) URINE COLOR. YELLOW [facility] URINE APPEARANCE CLEAR [facility] URINE GLUCOSE (UA) NEGATIVE mg/dL NEGATIVE [facility] URINE BILIRUBIN NEGATIVE NEGATIVE [facility] URINE KETONE NEGATIVE mg/dL NEGATIVE [facility] SPECIFIC GRAVITY,URINE >= 1.030 1.001-1.035 [facility] URINE BLOOD TRACE NEGATIVE [facility] PH,URINE 7.0 5.0-9.0 [facility] URINE PROTEIN 1+(30) mg/dL NEGATIVE [facility] URINE UROBILINOGEN NORMAL(0.2-1) mg/dL 0-1 [facility] URINE NITRATE NEGATIVE NEGATIVE [facility] URINE LEUKOCYTE ESTERASE NEGATIVE NEGATIVE [facility] ID Date Data Source [id number] [id number] 03/04/2020 10:48:00 PM [facility] spital TSYSORDER [id number] Name Value Range Interpretation Code Description Data Ce rce(s) Supporting Document(s) URINE RBC 3-5 /hpf 0-3 H [facility] URINE WBC 1-3 /hpf 0-5 [facility] URINE EPITHELIAL CELLS 1+ /hpf 0 [facility] ospital URINE BACTERIA 1+ NONE SEEN [facility] URINE MUCUS 2+ NEGATIVE [facility] ID Date Data Source [id number] 03/06/2020 08:09:00 AM [facility] Name Value Range Interpretation Code Description Data Ce rce(s) Supporting Document(s) HEP A AB, IGM Negative Negative [facility] HEP B SURFACE ANTIGEN SCREEN Negative Negative [facility] HEP B CORE AB, IGM Negative Negative [facility] mando HCV ANTIBODY <0.1 0.0-0.9 [facility] INFCE Result Units: s/co ratio Negative: < 0.8 Indeterminate: 0.8 - 0.9 Positive: > 0.9 The CDC recommends that a positive HCV antibody result be followed up with a HCV Nucleic Acid Amplification test ([id number]).Performed at: RN - [facility] [address] [id number] Director: Vero Austin MD, Phone: [phone] ID Date Data Source [id number] 03/06/2020 08:06:00 AM EST [facility] Name Value Range Interpretation Code Description Data Ce rce(s) Supporting Document(s) Hep A Ab, IgM Negative Negative [facility] HBsAg Screen Negative Negative [facility] Hep B Core Ab, IgM Negative Negative [facility] Hep C Virus Ab 0.0-0.9 [facility] Negative: < 0.8 Indeterminate: 0.8 - 0.9 Positive: > 0.9 The CDC recommends that a positive HCV antibody result be followed up with a HCV Nucleic Acid Amplification test ([id number]). ID Date Data Source [id number] 03/04/2020 10:07:00 PM [facility] TSYSORDER [id number] Name Value Range Interpretation Code Description Data Ce rce(s) Supporting Document(s) HIV 1/2 AB NON-REACTIVE [facility] HIV AG NON-REACTIVE [facility] ID Date Data Source [id number] 03/04/2020 10:35:00 PM [facility] l TSYSORDER [id number] Name Value Range Interpretation Code Description Data Ce rce(s) Supporting Document(s) PARTIAL THROMBOPLASTIN TIME 25.8 SECONDS 21.2-27.3 [facility] ID Date Data Source [id number] 03/04/2020 10:35:00 PM [facility] l TSYSORDER [id number] Name Value Range Interpretation Code Description Data Ce rce(s) Supporting Document(s) PROTHROMBIN TIME (PATIENT) 10.2 SECONDS 9.1-11.6 [facility] INR 0.98 0.87-1.06 [facility] ID Date Data Source [id number] 03/04/2020 10:33:00 PM [facility] TSYSORDER [id number] Name Value Range Interpretation Code Description Data Ce rce(s) Supporting Document(s) MAGNESIUM 1.9 mg/dL 1.8-2.4 [facility] ID Date Data Source [id number] 03/04/2020 10:33:00 PM [facility] TSYSORDER [id number] Name Value Range Interpretation Code Description Data Ce rce(s) Supporting Document(s) LIPASE 32 U/L 73-[address] [facility] ID Date Data Source [id number] 03/04/2020 10:33:00 PM [facility] TSYSORDER [id number] Name Value Range Interpretation Code Description Data Ce e(s) Supporting Document(s) GLUCOSE 89 mg/dL 74-106 [facility] BLOOD UREA NITROGEN 9 mg/dL 7-18 [facility] ital CREATININE 0.8 mg/dL 0.6-1.0 [facility] SODIUM 140 mmol/L 136-145 [facility] POTASSIUM 4.2 mmol/L 3.5-5.1 [facility] CHLORIDE 102 mmol/L 98-107 [facility] CO2 31 mmol/L 21-32 [facility] CALCIUM 9.1 mg/dL 8.5-10.1 [facility] ANION GAP 7.0 mmol/L 5-12 [facility] GLOMERULAR FILTRATION RATE 85 mL/min [facility] GFR IS CALCULATED IN mL/min/1.73m2 KENYA L FUNCTION: >90MILDLY DECREASED: 60-89MILDY TO MODERATELY DECREASED: 45-59 MODERATELY TO SEVERELY DECREASED: 30-44SEVERELY DECREASED: 15-29RENAL FAILURE: <15 AST 22 U/L 15-37 [facility] ALT 40 U/L 12-78 [facility] ALKALINE PHOSPHATASE 39 U/L 46-116 L [facility] pital TOTAL BILIRUBIN 0.2 mg/dL 0.2-1.0 [facility] TOTAL PROTEIN 7.3 g/dl 6.4-8.2 [facility] ALBUMIN 3.5 gm/dL 3.4-5.0 [facility] ID Date Data Source [id number] 03/04/2020 10:28:00 PM [facility] TSYSORDER [id number] Name Value Range Interpretation Code Description Data Ce e(s) Supporting Document(s) HCG,SERUM NEGATIVE NEGATIVE [facility] False negative results may occur when th e levels of hCG arebelow the sensitivity level of the test. If isstill suspected, a first morning urine specimen should becollected 48hrs later.This test has a sensitivity of 10mIU/mL in serum qwq30yAT/mL in urine. ID Date Data Source [id number] 03/04/2020 10:13:00 PM [facility] TSYSORDER [id number] Name Value Range Interpretation Code Description Data Ce e(s) Supporting Document(s) WHITE BLOOD COUNT 8.3 K/mm3 4.0-10.0 [facility] al RED BLOOD COUNT 3.48 M/mm3 4.00-5.50 L [facility] l HEMOGLOBIN 10.5 gm/dL 12.0-16.0 L [facility] HEMATOCRIT 31.7 % 36.0-48.8 L [facility] MEAN CELL VOLUME 91.1 fl 80-96 [facility] MEAN CORPUSCULAR HEMOGLOBIN 30.2 pg 27.0-31.0 [facility] MEAN CORPUSCULAR HGB CONC 33.1 g/dl 32.0-36.0 [facility] RED CELL DISTRIBUTION WIDTH 13.3 % 10.0-14.5 [facility] PLATELET COUNT 285 K/mm3 172-450 [facility] MEAN PLATELET VOLUME 9.3 fl 9.0-13.0 [facility] pital GRAN % 52.0 % 50-80.0 [facility] IG% 0.2 % 0.0-0.2 [facility] LYMPH % 37.0 % 25.0-50.0 [facility] MONO % 8.8 % 2.0-10.0 [facility] EOS % 1.8 % 0-5.0 [facility] BASO % 0.2 % 0.0-2.0 [facility] GRAN # 4.3 K/mm3 2.0-8.00 [facility] IG# 0.0 K/mm3 0.0-0.2 [facility] LYMPH # 3.1 K/mm3 1.0-5.0 [facility] MONO # 0.7 K/mm3 0.10-1.20 [facility] EOS # 0.2 K/mm3 0.0-0.5 [facility] BASO # 0.0 K/mm3 0.0-0.2 [facility] ID Date Data Source Test, Urine 01/24/2020 03:46:42 AM EST eCW1 ([facility]) Name Value Range Interpretation Code Description Data Ce rce(s) Supporting Document(s) yes Internal QC Acceptable (Y/N) e CW1 ([facility]) Choriogonadotropin.beta subunit ( test) [Presence] in Urin e neg Test, Urine eCW1 ([facility]) ID Date Data Source URINE CULTURE 12/25/2019 12:00:00 AM EDT eCW1 ([facility]) Name Value Range Interpretation Code Description Data Ce rce(s) Supporting Document(s) URINE CULTURE eCW1 ([facility]) ID Date Data Source UA URINALYSIS 12/25/2019 12:00:00 AM EDT eCW1 ([facility]) Name Value Range Interpretation Code Description Data Ce rce(s) Supporting Document(s) UA URINALYSIS eCW1 ([facility]) ID Date Data Source [id number] 10/18/2019 12:27:38 PM EDT [facility] Current Problems: Dental caries (ICD-521 .00) (YTS91-C66.9)Tobacco use (ICD- 305.1) (JKW97-I14.0)Dental caries (ICD-521.00) (JMX19-E96.9)DENTAL CARIES EXTENDING INTO PULP (ICD-521.03) (AUU09-V85.63)Physical exam (ICD-V70.0) (ICD10- Z00.00)BMI 32.0-32.9 (ICD-V85.32) (OGB23-P00.32)Obesity (ICD-278.00) (ICD10- E66.09)Normocytic anemia (ICD-285.9) (ZUD60-I90.89)Other seizures (ICD10- G40.89)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)Dental caries (ICD-521.00) (BGP33-P86.9)Nicotine dependence, cigarettes, in remission (MGR06-O68.211)Moderate cervical dysplasia (NXR09-R90.1)Genital w arts (ICD-078.11) (PAI28-Z08.0)Other hyperlipidemia (GIQ38-H22.4)Bipolar 1 disorder (ICD-296.7) (IQF80-C61.9)Anxiety disorder (ICD-300.00) (ICD10- F41.9)Current Medications: * TRAZADONE * SERTALINE * DRISCOL * AMANADINE * PRAZOSIN * BENZATROPINE COLACE 100 MG ORAL CAPSULE (DOCUSATE SODIUM) 1 QAM; Route: ORALDOCU SOFT 100 MG ORAL CAPSULE (DOCUSATE SODIUM) take one capsule once daily; Route: ORALFOLIC ACID 1 MG ORAL TABLET (FOLIC ACID) One tablet by mouth every day; Route: ORALHALOPERIDOL 10 MG ORAL TABLET (HALOPERIDOL) 1QHS; Route: ORALFE TABS 325 (65 FE) MG ORAL TABLET DELAYED RELEASE (FERROUS SULFATE) One po qd; Route: ORALFOLIC ACID TABLET (FOLIC ACID TABS) 1 QAMRISPERDAL CONSTA 50 MG INTRAMUSCULAR SUSPENSION RECONSTITUTED (RISPERIDONE MICROSPHERES) IM every other week; Route: INTRAMUSCULARCurrent Allergies: PENICILLIN (Severe) Dental Chart: Procedures:Type - CDT Code - Description B - (D2392) Resin-based composite, 2 surfaces, posterior on Tooth # 3 on Tooth Surface BM (Performed by Miesha Nassar DDS) B - (D2330) Resin, one surface, anterior on Tooth # 6 on Tooth Surface F (Performed by Miesha Nassar DDS) Chart Notes:nicole (Oct 18 2019 2:28PM): Rmhx(-) per ptCC: none. Operative: #3-BM,6-F decay removed with highspeed bur, acid etching gel applied/rinsed/dried, self etching Futurabond M+ (Voco) placed and light-cured, A3 flowable and packable [place] (Voco) composite placed and light-cured. Bite occlusion checked, adjusted, and polished.Anesthesia: 20% Benzocaine topical, 2 carp 2% lidocaine w/ 1:100,000 epi (upper right Inflitration)Additional PPE were used due to COVID-19. This included a minimum of a N95, a surgical mask, a hair covering, a face shield, proctective eyewear, and a gown.No complications. POI. Assisted byMT . Pt was cooperative.NV: Miesha Siddiqui DDS by nicole (10/18/2019 2:28 PM): Tooth Notes and Watches:- Tooth 9 Note: referral has been placed for a crown, but will attempt filling for asthetics only.Miesha Nassar DDS by amdong (01/15/2019 10:26 AM): Assessment & Plan Problems:Added: Dental caries (ICD- 521.00) (CBP90-V32.9) Name Value Range Interpretation Code Description Data Ce rce(s) Supporting Document(s) ID Date Data Source [id number] 10/08/2019 12:30:02 PM EDT [facility] Patient History Medical History:bipolar with schizophrenia - activedepressionanxietySurgical History:cervical biopsy Family History:Diabetes (Mother, Maternal Grandmother)Hypertension (Mother, Maternal Grandmother)Mother has graves disease diagnosed 04/2016Mother had arthritisSocial/Personal History: Smoking Status: current every day smokerDo you vape? NoCurrent Problems: Tobacco use (ICD-305.1) (VMQ36-D37.0)Dental caries (ICD-521.00) (ICD10- K02.9)DENTAL CARIES EXTENDING INTO PULP (ICD-521.03) (LZU44-L63.63)Physical exam (ICD-V70.0) (NNJ96-C25.00)BMI 32.0-32.9 (ICD-V85.32) (UWW07-C99.32)Obesity (ICD -278.00) (KPT96-K96.09)Normocytic anemia (ICD-285.9) (AAN57-N02.89)Other seizures (QZQ00-U36.89)Other thyrotoxicosis without thyrotoxic crisis or storm (KZU85-L00.80)Dental caries (ICD-521.00) (DPE07-R47.9)Nicotine dependence, cigarettes, in remission (VSG36-E29.211)Moderate cervical dysplasia (ICD10- N87.1)Genital warts (ICD-078.11) (JYL30-H94.0)Other hyperlipidemia (ICD10- E78.4)Bipolar 1 disorder (ICD-296.7) (RLO42-N19.9)Anxiety disorder (ICD-300.00) (IQL93-P60.9)Problem list reviewed during this update.Current Medications: * TRAZADONE * SERTALINE * DRISCOL * AMANADINE * PRAZOSIN * BENZATROPINE COLACE 100 MG ORAL CAPSULE (DOCUSATE SODIUM) 1 QAM; Route: ORALDOCU SOFT 100 MG ORAL CAPSULE (DOCUSATE SODIUM) take one capsule once daily; Route: ORALFOLIC ACID 1 MG ORAL TABLET (FOLIC ACID) One tablet by mouth every day; Route: ORALHALOPERIDOL 10 MG ORAL TABLET (HALOPERIDOL) 1QHS; Route: ORALFE TABS 325 (65 FE) MG ORAL TABLET DELAYED RELEASE (FERROUS SULFATE) One po qd; Route: ORALFOLIC ACID TABLET (FOLIC ACID TABS) 1 QAMRISPERDAL CONSTA 50 MG INTRAMUSCULAR SUSPENSION RECONSTITUTED (RISPERIDONE MICROSPHERES) IM every other week; Route: INTRAMUSCULARMedication list reviewed during this update.Current Allergies: PENICILLIN (Severe)Allergy list reviewed during this update.Patient declined [facility].Past Medical History:(reviewed - no changes required) bipolar with schizophrenia - activedepressionanxiety Dental Chart: Procedures:Type - CDT Code - Description B - (D1110) Prophylaxis, adult (Performed by Lissa oRberto RDH) B - (D0120) Periodic oral evaluation - established patient (Performed by Miesha Nassar DDS) Treatments:Type - CDT Code - Description T - (D2150) Amalgam, 2 surfaces, primary or permanent on Tooth # 3 on Tooth Surface MB (Performed by Lissa Roberto RDH) T - (D7140) Extraction, erupted tooth or exposed root (elevation and/or forceps removal) on Tooth # 29 (Performed by Lissa Roberto RDH) T - (D2330) Resin, one surface, anterior on Tooth # 6 on Tooth Surface F (Performed by Lissa Roberto RDH) Chart Notes:noah (Oct 08 2019 1:03PM): [place]-PoorAdult prophy, No x-rays needed per Dr Storm states she is brushing maybe three times a week. Stressed TB bid, caron ssing and Fl2 rinse QD. Trace biofilm and calculus. Tissue mod papillary inflammation;light bleeding with hand scaling. Rampant decay- stressed to pt the importance of completing her treatment planbefore she ends up in the hospital. Med Hx reviewed with pt- no changes. 6 month recall. Exc pt.Referral for extraction of #29 and 30.N/V-Fillings. Lissa Roberto RDH by noah (10/08/2019 1:03 PM): ; nicole (Oct 08 2019 1:38PM): [facility] CC: none. Reviewed Xrays. Exam: rampant caries detected. OCS: WNL, IO/ EO completed, No significant hard findings upon clinical exam.Additional PPE requirements due to COVID-19 in the dental setting, N95, surgical mask, hair covering, gown and shieldPt was cooperative. OHI given Referral: N/A NV:Lissa Sarkar RDH by nicole (10/08/2019 1:38 PM): Tooth Notes and Watches:- Tooth 9 Note: referral has been placed for a crown, but will attempt filling for asthetics only.Miesha Nassar DDS by claudia (01/15/2019 10:26 AM): Assessment & Plan Assessment not SavedDENTAL CARIES EXTENDING INTO PULP (OSW82-A81.63): Medications:TRAZADONESERTALINEDRISCOLAMANADINEPRAZOSINBENZATROPINECOLACE 100 MG ORAL CAPSULEDOCU SOFT 100 MG ORAL CAPSULEFOLIC ACID 1 MG ORAL TABLETHALOPERIDOL 10 MG ORAL TABLETFE TABS 325 (65 FE) MG ORAL TABLET DELAYED RELEASEFOLIC ACID TABLETRISPERDAL CONSTA 50 MG INTRAMUSCULAR SUSPENSION RECONSTITUTEDAllergies:PENICILLIN (Severe)Orders:Oral Surgery Referral [CPT- 23305] Clinical Visit Summary Declined Name Value Range Interpretation Code Description Data Ce rce(s) Supporting Document(s) ID Date Data Source [id number] 09/02/2019 12:00:00 AM EDT [facility] Name Value Range Interpretation Code Description Data Ce rce(s) Supporting Document(s) SARS CORONAVIRUS 2 RNA [facility] This lab was ordered by [facility] and reported by [facility]. ID Date Data Source [id number] 04/16/2019 12:22:38 PM [facility] Current Problems: Tobacco use (ICD-305.1 ) (TQC89-Y08.0)Dental caries (ICD- 521.00) (LRT13-D74.9)DENTAL CARIES EXTENDING INTO PULP (ICD-521.03) (ICD10- K02.63)Physical exam (ICD-V70.0) (IME18-D46.00)BMI 32.0-32.9 (ICD-V85.32) (QVT14-G65.32)Obesity (ICD-278.00) (WLA19-T72.09)Normocytic anemia (ICD-285.9) (TSU14-Z91.89)Other seizures (OVB90-Y56.89)Other thyrotoxicosis without thyrotoxic crisis or storm (EKU99-Y43.80)Dental caries (ICD-521.00) (ICD10- K02.9)Nicotine dependence, cigarettes, in remission (JSV01-Z45.211)Moderate cervical dysplasia (GTL87-O78.1)Genital warts (ICD-078.11) (LRX00-P15.0)Other h yperlipidemia (KDY68-H36.4)Bipolar 1 disorder (ICD-296.7) (NLP84-J65.9)Anxiety disorder (ICD-300.00) (FNP47-V61.9)Current Medications: * TRAZADONE * SERTALINE * DRISCOL * AMANADINE * PRAZOSIN * BENZATROPINE COLACE 100 MG ORAL CAPSULE (DOCUSATE SODIUM) 1 QAM; Route: ORALDOCU SOFT 100 MG ORAL CAPSULE (DOCUSATE SODIUM) take one capsule once daily; Route: ORALFOLIC ACID 1 MG ORAL TABLET (FOLIC ACID) One tablet by mouth every day; Route: ORALHALOPERIDOL 10 MG ORAL TABLET (HALOPERIDOL) 1QHS; Route: ORALFE TABS 325 (65 FE) MG ORAL TABLET DELAYED RELEASE (FERROUS SULFATE) One po qd; Route: ORALFOLIC ACID TABLET (FOLIC ACID TABS) 1 QAMRISPERDAL CONSTA 50 MG INTRAMUSCULAR SUSPENSION RECONSTITUTED (RISPERIDONE MICROSPHERES) IM every other week; Route: INTRAMUSCULARCurrent Allergies: PENICILLIN (Severe) Dental Chart: Procedures:Type - CDT Code - Description B - (D2335) Resin, 4 or more surfaces or involving incisal angle (anterior) on Tooth # 11 on Tooth Surface MFDL (Performed by Miesha Nassar DDS) B - (D2391) Resin-based composite - one surface, posterior on Tooth # 12 on Tooth Surface B (Performed by Miesha aNssar DDS) Chart Notes:nicole (Apr 16 2019 1:50PM): [facility]per pt. CC: none. HurriCaine (Watermelon) Topical, UA infiltration 2 carp. Septocaine (Articaine HCL 4%) X 1:200.000 epi. Operative: #12-F, 11-MFDL BrushandBond on #11-F, light-cured, etch, FuturaBond, light-cured A-3 [place], light-cured. Excavated with High Speed, Slow Speed and Spoon. Occlusion checked and polished.No complications. POI given. Assisted by:AM. Pt was cooperative. NV: Christianity. Miesha Nassar DDS by nicole (04/16/2019 1:50 PM): Tooth Notes and Watches:- Tooth 9 Note: referral has been placed for a crown, but will attempt filling for asthetics only.Miesha Nassar DDS by claudia (01/15/2019 10:26 AM): Assessment & Plan Medications:TRAZADONESERTALINEDRISCOLAMANADINEPRAZOSINBENZATROPINECOLACE 100 MG ORAL CAPSULEDOCU SOFT 100 MG ORAL CAPSULEFOLIC ACID 1 MG ORAL TABLETHALOPERIDOL 10 MG ORAL TABLETFE TABS 325 (65 FE) MG ORAL TABLET DELAYED RELEASEFOLIC ACID TABLETRISPERDAL CONSTA 50 MG INTRAMUSCULAR SUSPENSION RECONSTITUTEDAllergies:PENICILLIN (Severe) Name Value Range Interpretation Code Description Data Ce rce(s) Supporting Document(s) ID Date Data Source [id number] 04/08/2019 07:24:10 AM [facility] Patient History Social/Personal History: Smoking Status: current every day smokerAdvised to Quit/Tobacco Education: YesCurrent Problems: Tobacco use (ICD- 305.1) (DCD61-Z20.0)Dental caries (ICD-521.00) (YGI26-C65.9)DENTAL CARIES EXTENDING INTO PULP (ICD-521.03) (NUT05-O95.63)Physical exam (ICD-V70.0) (ICD10- Z00.00)BMI 32.0-32.9 (ICD-V85.32) (RWO43-N03.32)Obesity (ICD-278.00) (ICD10- E66.09)Normocytic anemia (ICD-285.9) (MIX83-M75.89)Other seizures (ICD10- G40.89)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)Dental caries (ICD-521.00) (TFR19-B32.9)Nicotine dependence, cigarettes, in remission (TDE50-L15.211)Moderate cervical dysplasia (VRZ56-X04.1)Genital warts (ICD-078.11) (SIJ05-P23.0)Other hyperlipidemia (NUR87-X94.4)Bipolar 1 disorder (ICD-296.7) (JDS59-S20.9)Anxiety disorder (ICD-300.00) (ICD10- F41.9)Current Medications: * TRAZADONE * SERTALINE * DRISCOL * AMANADINE * PRAZOSIN * BENZATROPINE COLACE 100 MG ORAL CAPSULE (DOCUSATE SODIUM) 1 QAM; Route: ORALDOCU SOFT 100 MG ORAL CAPSULE (DOCUSATE SODIUM) take one capsule once daily; Route: ORALFOLIC ACID 1 MG ORAL TABLET (FOLIC ACID) One tablet by mouth every day; Route: ORALHALOPERIDOL 10 MG ORAL TABLET (HALOPERIDOL) 1QHS; Route: ORALFE TABS 325 (65 FE) MG ORAL TABLET DELAYED RELEASE (FERROUS SULFATE) One po qd; Route: ORALFOLIC ACID TABLET (FOLIC ACID TABS) 1 QAMRISPERDAL CONSTA 50 MG INTRAMUSCULAR SUSPENSION RECONSTITUTED (RISPERIDONE MICROSPHERES) IM every other week; Route: INTRAMUSCULARCurrent Allergies: PENICILLIN (Severe) Dental Chart: Procedures:Type - CDT Code - Description B - (D0120) Periodic oral evaluation - established patient (Performed by Miesha Nassar DDS) B - (D1110) Prophylaxis, adult (Performed by Lissa Roberto RDH) B - (D0274) Bitewings, 4 radiographic images (Performed by Lissa Roberto RDH) Treatments:Type - CDT Code - Description T - (D2140) Amalgam-one surface, primary or permanent on Tooth # 28 on Tooth Surface B (Performed by Lissa Roberto RDH) Existing:Type - CDT Code - Description[E] Decay On #28 Surface B Chart Notes:nicole (Apr 08 2019 8:15AM): [facility] CC: none.Pt. reported she attempted to remove # 30 but it broke. Reviewed Xrays. Exam: rampant caries detected. OCS: WNL, IO/ EO completed, No significant hard findings upon clinical exam . # 8 and 9 has mobility- pt wants to hang on to it. Pt was cooperative.OHI givenReferral: OS # 30NV:Lissa Sarkar RDH by nicole (04/08/2019 8:15 AM): ; noah (Apr 08 2019 8:11AM): OH-FairAdult prophy, 4BW's"I tried to take the tooth out myself and broke it." Pt denied any discomft even prior to trying to pulling it herself. "I would just like to get all my teeth pulled".Pt states she is brushing bid and does not floss. Stressed TB bid, flossing and Fl2/antimicrobial rinse QD. Trace biofilm and calculus. Tissue inflammed around #30 were pt tried to extract her own tooth. Rampant decay; stressed to pt the importance of getting the treatment plan completed. Med Hx updated med list provided by [facility]. 6 month recall. Exc pt.N/V-FillingsReferral to OS for extraction of #30. Lissa Roberto RDH by noah (04/08/2019 8:11 AM): Tooth Notes and Watches:- Tooth 9 Note: referral has been placed for a crown, but will attempt filling for asthetics only.Miesha Nassar DDS by claudia (01/15/2019 10:26 AM): Assessment & Plan Problems:Added: Tobacco use (ICD- 305.1) (JKN52-P52.0)Medications:TRA ZADONESERTALINEDRISCOLAMANADINEPRAZOSINBENZATROPINECOLACE 100 MG ORAL CAPSULEDOCU SOFT 100 MG ORAL CAPSULEFOLIC ACID 1 MG ORAL TABLETHALOPERIDOL 10 MG ORAL TABLETFE TABS 325 (65 FE) MG ORAL TABLET DELAYED RELEASEFOLIC ACID TABLETRISPERDAL CONSTA 50 MG INTRAMUSCULAR SUSPENSION RECONSTITUTEDMedication Changes:Added: * BENZATROPINE* PRAZOSIN* AMANADINE* DRISCOL* SERTALINE* TRAZADONEAllergies:PENICILLIN (Severe)Orders:Oral Surgery Referral [CPT-59954] Clinical Visit Summary DeclinedSmoking, Tobacco or Smoke Exposure StatusSmoke Status: current every day smokerTobacco Use: YesAdv to Quit: YesClinical List ReviewProblem ReviewProblem List was reviewed and/or updated during this visit.Medication Reconciliation & ReviewMedication List was reviewed and/or updated during this visit, including review of any [id number] medications, herbal therapies, and/or supplements.Allergy ReviewAllergy List was reviewed and/or updated during this visit. Name Value Range Interpretation Code Description Data Ce rce(s) Supporting Document(s) ID Date Data Source CHGCTV - CHLAMYDIA, GC & TRICH AMP (Microbiology) 04/01/2019 12:00:00 AM EST eCW1 ([facility]) Name Value Range Interpretation Code Description Data Ce rce(s) Supporting Document(s) NOT DETECTED NEGATIVE Trichomonas vaginalis ( AMP) eCW1 ([facility]) Procedure Social History Code Duration Value Status Description Data Source(s ) Smoking 04/07/2020 12:00:00 AM EST Unknown if ever smoked comp leted Unknown if ever smoked [facility] ([facility]) Smoking 03/30/2020 12:00:00 AM EST Unknown if ever smoked comp leted Unknown if ever smoked [facility] ([facility]) Smoking 03/24/2020 12:00:00 AM EST Unknown if ever smoked comp leted Unknown if ever smoked [facility] ([facility]) Smoking 03/10/2020 12:00:00 AM EST Unknown if ever smoked comp leted Unknown if ever smoked [facility] ([facility]) Smoking 03/03/2020 12:00:00 AM EST Unknown if ever smoked comp leted Unknown if ever smoked [facility] ([facility]) Smoking 02/21/2020 12:00:00 AM EST Current Smoker completed Curre nt Smoker eCW1 ([facility]) Smoking 01/29/2020 12:00:00 AM EST Current Smoker completed Curre nt Smoker eCW1 ([facility]) Smoking 01/27/2020 12:00:00 AM EST Unknown if ever smoked comp leted Unknown if ever smoked [facility] ([facility]) Smoking 01/24/2020 12:00:00 AM EST Current Smoker completed Curre nt Smoker eCW1 ([facility]) Smoking 01/21/2020 12:00:00 AM EST Unknown if ever smoked comp leted Unknown if ever smoked [facility] ([facility]) Smoking 01/16/2020 12:00:00 AM EDT Unknown if ever smoked comp leted Unknown if ever smoked [facility] ([facility]) Smoking 12/30/2019 12:00:00 AM EDT Unknown if ever smoked comp leted Unknown if ever smoked [facility] ([facility]) Smoking 12/26/2019 12:00:00 AM EDT Unknown if ever smoked comp leted Unknown if ever smoked [facility] ([facility]) Smoking 12/25/2019 12:00:00 AM EDT Current Smoker completed Curre nt Smoker eCW1 ([facility]) Smoking 12/25/2019 12:00:00 AM EDT Current Smoker completed Curre nt Smoker eCW1 ([facility]) Smoking 12/23/2019 12:00:00 AM EDT Unknown if ever smoked comp leted Unknown if ever smoked [facility] ([facility]) Smoking 12/20/2019 12:00:00 AM EDT Unknown if ever smoked comp leted Unknown if ever smoked [facility] ([facility]) Smoking 11/27/2019 12:00:00 AM EDT Unknown if ever smoked comp leted Unknown if ever smoked [facility] ([facility]) Smoking 11/21/2019 12:00:00 AM EDT Unknown if ever smoked comp leted Unknown if ever smoked [facility] ([facility]) Smoking 09/19/2019 12:00:00 AM EDT Unknown if ever smoked comp leted Unknown if ever smoked [facility] ([facility]) Smoking 09/09/2019 12:00:00 AM EDT Unknown if ever smoked comp leted Unknown if ever smoked [facility] ([facility]) Smoking 09/04/2019 12:00:00 AM EDT Current Smoker completed Curre nt Smoker eCW1 ([facility]) Smoking 09/04/2019 12:00:00 AM EDT Current Smoker completed Curre nt Smoker eCW1 ([facility]) Smoking 09/04/2019 12:00:00 AM EDT Current Smoker completed Curre nt Smoker eCW1 ([facility]) Smoking 09/04/2019 12:00:00 AM EDT Current Smoker completed Curre nt Smoker eCW1 ([facility]) Smoking 09/04/2019 12:00:00 AM EDT Current Smoker completed Curre nt Smoker eCW1 ([facility]) Smoking 08/14/2019 12:00:00 AM EDT Unknown if ever smoked comp leted Unknown if ever smoked [facility] ([facility]) Smoking 07/30/2019 12:00:00 AM EDT Unknown if ever smoked comp leted Unknown if ever smoked [facility] ([facility]) Smoking 07/23/2019 12:00:00 AM EDT Unknown if ever smoked comp leted Unknown if ever smoked [facility] ([facility]) Smoking 07/22/2019 12:00:00 AM EDT Current Smoker completed Curre nt Smoker eCW1 ([facility]) Smoking 07/16/2019 12:00:00 AM EDT Unknown if ever smoked comp leted Unknown if ever smoked [facility] ([facility]) Smoking 07/01/2019 12:00:00 AM EDT Unknown if ever smoked comp leted Unknown if ever smoked [facility] ([facility]) Smoking 06/25/2019 12:00:00 AM EDT Unknown if ever smoked comp leted Unknown if ever smoked [facility] ([facility]) Smoking 05/31/2019 12:00:00 AM EDT Unknown if ever smoked comp leted Unknown if ever smoked [facility] ([facility]) Smoking 05/29/2019 12:00:00 AM EDT Unknown if ever smoked comp leted Unknown if ever smoked [facility] ([facility]) Smoking 05/09/2019 12:00:00 AM EST Unknown if ever smoked comp leted Unknown if ever smoked [facility] ([facility]) Smoking 05/01/2019 12:00:00 AM EST Unknown if ever smoked comp leted Unknown if ever smoked [facility] ([facility]) Smoking 04/24/2019 12:00:00 AM EST Unknown if ever smoked comp leted Unknown if ever smoked [facility] ([facility]) Smoking 04/11/2019 12:00:00 AM EST Unknown if ever smoked comp leted Unknown if ever smoked [facility] ([facility]) Smoking 04/03/2019 12:00:00 AM EST Unknown if ever smoked comp leted Unknown if ever smoked [facility] ([facility]) Smoking 03/28/2019 12:00:00 AM EST Unknown if ever smoked comp leted Unknown if ever smoked [facility] ([facility]) Smoking 03/27/2019 12:00:00 AM EST Unknown if ever smoked comp leted Unknown if ever smoked [facility] ([facility]) Smoking 03/14/2019 12:00:00 AM EST Unknown if ever smoked comp leted Unknown if ever smoked [facility] ([facility]) Smoking 03/01/2019 12:00:00 AM EST Unknown if ever smoked comp leted Unknown if ever smoked [facility] ([facility]) Smoking 02/12/2019 12:00:00 AM EST Unknown if ever smoked comp leted Unknown if ever smoked [facility]) Vital Signs ID Date Data Source UNK Name Value Range Interpretation Code Description Data Source(s) Diastolic blood pressure 0 mm[Hg] Normal (applies to non-numeric results) 0 mm[Hg] [facility] ([facility]) Systolic blood pressure 0 mm[Hg] Normal (applies t o non-numeric results) 0 mm[Hg] [facility] ([facility]) Body mass index (BMI) [Ratio] 0.00 kg/m2 No rmal (applies to non-numeric results) 0.00 kg/m2 [facility] ([facility]) Body weight Measured 0.00 lbs Normal (applies to n on-numeric results) 0.00 lbs [facility] ([facility]) Body height 0.00 in Normal (applies to non-numeric resu lts) 0.00 in [facility] ([facility]) Diastolic blood pressure 0 mm[Hg] Normal (applies to non-numeric results) 0 mm[Hg] [facility] ([facility]) Systolic blood pressure 0 mm[Hg] Normal (applies t o non-numeric results) 0 mm[Hg] [facility] ([facility]) Body mass index (BMI) [Ratio] 0.00 kg/m2 No rmal (applies to non-numeric results) 0.00 kg/m2 [facility] ([facility]) Body weight Measured 0.00 lbs Normal (applies to n on-numeric results) 0.00 lbs [facility] ([facility]) Body height 0.00 in Normal (applies to non-numeric resu lts) 0.00 in [facility] ([facility]) Diastolic blood pressure 0 mm[Hg] Normal (applies to non-numeric results) 0 mm[Hg] [facility] ([facility]) Systolic blood pressure 0 mm[Hg] Normal (applies t o non-numeric results) 0 mm[Hg] [facility] ([facility]) Body mass index (BMI) [Ratio] 0.00 kg/m2 No rmal (applies to non-numeric results) 0.00 kg/m2 [facility] ([facility]) Body weight Measured 0.00 lbs Normal (applies to n on-numeric results) 0.00 lbs [facility] ([facility]) Body height 0.00 in Normal (applies to non-numeric resu lts) 0.00 in [facility] ([facility]) Diastolic blood pressure 62 mm[Hg] 62 mm[Hg] eCW1 ([facility]) Systolic blood pressure 102 mm[Hg] 102 mm[Hg] e CW1 ([facility]) Body mass index (BMI) [Ratio] 35.36 kg/m2 35.36 kg/m2 eCW1 ([facility]) Body height 64 [in_i] 64 [in_i] eCW1 ([facility]) Body weight 93.44 kg 93.44 kg eCW1 ([facility]) Body weight 206 [lb_av] 206 [lb_av] eCW1 ([facility]) Systolic blood pressure 0 mm[Hg] Normal (applies t o non-numeric results) 0 mm[Hg] [facility] ([facility]) Body mass index (BMI) [Ratio] 0.00 kg/m2 No rmal (applies to non-numeric results) 0.00 kg/m2 [facility] ([facility]) Body weight Measured 0.00 lbs Normal (applies to n on-numeric results) 0.00 lbs [facility] ([facility]) Body height 0.00 in Normal (applies to non-numeric resu lts) 0.00 in [facility] ([facility]) Diastolic blood pressure 0 mm[Hg] Normal (applies to non-numeric results) 0 mm[Hg] [facility] ([facility]) Diastolic blood pressure mm[Hg] eCW1 ([facility]) Systolic blood pressure 115 mm[Hg] 115 mm[Hg] e CW1 ([facility]) Body temperature 97.4 [degF] 97.4 [degF] eCW1 ( [facility]) Respiratory rate 18 /min 18 /min eCW1 (Critical access hospital) Heart rate 99 /min 99 /min eCW1 ([facility]) Body mass index (BMI) [Ratio] 35.08 kg/m2 35.08 kg/m2 eCW1 ([facility]) Body height 64 [in_i] 64 [in_i] eCW1 ([facility]) Body weight 204.4 [lb_av] 204.4 [lb_av] eCW1 ([facility]) Diastolic blood pressure 60 mm[Hg] 60 mm[Hg] eCW1 ([facility]) Systolic blood pressure 110 mm[Hg] 110 mm[Hg] e CW1 ([facility]) Body temperature 97.6 [degF] 97.6 [degF] eCW1 ( [facility]) Respiratory rate 18 /min 18 /min eCW1 (Critical access hospital) Heart rate 80 /min 80 /min eCW1 ([facility]) Body mass index (BMI) [Ratio] 35.36 kg/m2 35.36 kg/m2 eCW1 ([facility]) Body height 64 [in_i] 64 [in_i] eCW1 ([facility]) Body weight 206 [lb_av] 206 [lb_av] eCW1 ([facility]) Diastolic blood pressure 0 mm[Hg] Normal (applies to non-numeric results) 0 mm[Hg] [facility] ([facility]) Systolic blood pressure 0 mm[Hg] Normal (applies t o non-numeric results) 0 mm[Hg] [facility] ([facility]) Body mass index (BMI) [Ratio] 0.00 kg/m2 No rmal (applies to non-numeric results) 0.00 kg/m2 [facility] ([facility]) Body weight Measured 0.00 lbs Normal (applies to n on-numeric results) 0.00 lbs [facility] ([facility]) Body height 0.00 in Normal (applies to non-numeric resu lts) 0.00 in [facility] ([facility]) Body weight 89.813 kg 89.813 kg [facility]) Body mass index (BMI) [Ratio] 34.0 kg/m2 34.0 k g/m2 [facility] Body weight 198.00 [lb_av] 198.00 [lb_av] [facility] ([facility]) Body height 64 [in_i] 64 [in_i] [facility] ([facility]) 5'4" Diastolic blood pressure 0 mm[Hg] Normal (applies to non-numeric results) 0 mm[Hg] [facility] ([facility]) Systolic blood pressure 0 mm[Hg] Normal (applies t o non-numeric results) 0 mm[Hg] [facility] ([facility]) Body mass index (BMI) [Ratio] 0.00 kg/m2 No rmal (applies to non-numeric results) 0.00 kg/m2 [facility] ([facility]) Body weight Measured 0.00 lbs Normal (applies to n on-numeric results) 0.00 lbs [facility] ([facility]) Body height 0.00 in Normal (applies to non-numeric resu lts) 0.00 in [facility] ([facility]) Diastolic blood pressure 68 mm[Hg] 68 mm[Hg] eCW1 ([facility]) Systolic blood pressure 122 mm[Hg] 122 mm[Hg] e CW1 ([facility]) Body temperature 98.1 [degF] 98.1 [degF] eCW1 ( [facility]) Respiratory rate 18 /min 18 /min eCW1 (Critical access hospital) Heart rate 88 /min 88 /min eCW1 ([facility]) Body mass index (BMI) [Ratio] 33.74 kg/m2 33.74 kg/m2 eCW1 ([facility]) Body height 64 [in_i] 64 [in_i] eCW1 ([facility]) Body weight 196.6 [lb_av] 196.6 [lb_av] eCW1 ([facility]) Body weight 89.813 kg 89.813 kg [facility] Body mass index (BMI) [Ratio] 34.0 kg/m2 34.0 k g/m2 [facility] ([facility]) Body weight 198.00 [lb_av] 198.00 [lb_av] [facility] ([facility]) Body height 64 [in_i] 64 [in_i] [facility] ([facility]) 5'4" Diastolic blood pressure 0 mm[Hg] Normal (applies to non-numeric results) 0 mm[Hg] [facility] ([facility]) Systolic blood pressure 0 mm[Hg] Normal (applies t o non-numeric results) 0 mm[Hg] [facility] ([facility]) Body mass index (BMI) [Ratio] 0.00 kg/m2 No rmal (applies to non-numeric results) 0.00 kg/m2 [facility] ([facility]) Body weight Measured 0.00 lbs Normal (applies to n on-numeric results) 0.00 lbs [facility] ([facility]) Body height 0.00 in Normal (applies to non-numeric resu lts) 0.00 in [facility] ([facility]) Diastolic blood pressure 80 mm[Hg] 80 mm[Hg] eCW1 ([facility]) Systolic blood pressure 122 mm[Hg] 122 mm[Hg] e CW1 ([facility]) Body temperature 99 [degF] 99 [degF] eCW1 (Critical access hospital) Respiratory rate 20 /min 20 /min eCW1 (Critical access hospital) Heart rate 100 /min 100 /min W1 ([facility] [facility]) Body mass index (BMI) [Ratio] 33.85 kg/m2 33.85 kg/m2 eCW1 ([facility]) Body height 64 [in_i] 64 [in_i] eCW1 ([facility]) Body weight 197.2 [lb_av] 197.2 [lb_av] eCW1 ([facility]) Diastolic blood pressure 74 mm[Hg] 74 mm[Hg] eCW1 ([facility]) Systolic blood pressure 120 mm[Hg] 120 mm[Hg] e CW1 ([facility]) Body temperature 98.3 [degF] 98.3 [degF] eCW1 ( [facility]) Respiratory rate 20 /min 20 /min eCW1 ([facility]) Heart rate 94 /min 94 /min eCW1 ([facility]) Body mass index (BMI) [Ratio] 34.02 kg/m2 34.02 kg/m2 eCW1 ([facility]) Body height 64 [in_us] 64 [in_us] eCW1 ([facility]) Body weight Measured 198.2 [lb_av] 198.2 [lb_av ] eCW1 ([facility]) Diastolic blood pressure 76 mm[Hg] 76 mm[Hg] eCW1 ([facility]) Systolic blood pressure 120 mm[Hg] 120 mm[Hg] e CW1 ([facility]) Body mass index (BMI) [Ratio] 33.12 kg/m2 33.12 kg/m2 eCW1 ([facility]) Body height 64 [in_us] 64 [in_us] eCW1 ([facility]) Body weight Measured 193 [lb_av] 193 [lb_av] eC W1 ([facility]) Diastolic blood pressure 70 mm[Hg] 70 mm[Hg] eCW1 ([facility]) Systolic blood pressure 120 mm[Hg] 120 mm[Hg] e CW1 ([facility]) Body temperature 97.3 [degF] 97.3 [degF] eCW1 ( [facility]) Respiratory rate 20 /min 20 /min eCW1 ([facility]) Heart rate 88 /min 88 /min eCW1 ([facility]) Body mass index (BMI) [Ratio] 32.78 kg/m2 32.78 kg/m2 eCW1 ([facility]) Body height 64 [in_us] 64 [in_us] eCW1 ([facility]) Body weight Measured 191 [lb_av] 191 [lb_av] eC W1 ([facility]) Diastolic blood pressure 0 mm[Hg] Normal (applies to non-numeric results) 0 mm[Hg] [facility] ([facility]) Systolic blood pressure 0 mm[Hg] Normal (applies t o non-numeric results) 0 mm[Hg] [facility] ([facility]) Body mass index (BMI) [Ratio] 0.00 kg/m2 No rmal (applies to non-numeric results) 0.00 kg/m2 [facility] ([facility]) Body weight Measured 0.00 lbs Normal (applies to n on-numeric results) 0.00 lbs [facility] ([facility]) Body height 0.00 in Normal (applies to non-numeric resu lts) 0.00 in [facility] ([facility]) ID Date Data Source [id number] 01/31/2020 11:26:20 PM [facility] Name Value Range Interpretation Code Description Data Source(s) TRANSFER FROM [facility] Patient Treatment Plan of Care Planned Activity Planned Date Details Description Data Source (s) Cholecalciferol 1000 UNT Oral Tablet 08/21/2019 12:00:00 AM EDT eCW1 ([facility]) Cholecalciferol 1000 UNT Oral Tablet 08/21/2019 12:00:00 AM EDT eCW1 ([facility]) Cholecalciferol 1000 UNT Oral Tablet 08/21/2019 12:00:00 AM EDT eCW1 ([facility]) Cholecalciferol 1000 UNT Oral Tablet 08/21/2019 12:00:00 AM EDT eCW1 ([facility]) Fluconazole 150 MG Oral Tablet 05/13/2019 12:00:00 AM EST eCW1 ([facility]) Fluconazole 150 MG Oral Tablet 04/01/2019 12:00:00 AM EST eCW1 ([facility]) Clotrimazole 10 MG/ML Topical Cream 04/01/2019 12:00:00 AM EST eCW1 ([facility]) Nicotine 4 MG/ACTUAT Inhalant Solution [Nicotrol] 03/29/2019 12: 00:00 AM EST eCW1 ([facility])
[2020-04-09 12:56] LABS: HEMATOCRIT 35.2 % (36.0-47.0); HEMOGLOBIN 11.1 g/dl (12.0-15.5); MEAN CORPUSCULAR HEMOGLOBIN 29.3 pg (27.0-33.0); MEAN CORPUSCULAR HGB CONC 31.5 g/dl (32.0-36.5); MEAN CORPUSCULAR VOLUME 92.9 fl (80.0-96.0); PLATELET COUNT, AUTOMATED 259 10^3/uL (150-450); RED BLOOD COUNT 3.79 10^6/uL (4.00-5.40); WHITE BLOOD COUNT 5.4 10^3/uL (4.0-10.0)
--- OUTSIDE RECORDS SUMMARY | 2020-04-09 13:23 | CCD ---
Author Author [facility] Organization [facility] Address Unknown Phone Unavailable Support Name Relationship Address Phone Willa Tinsley Next Of Kin Unknown Unavailable Claire Gio Next Of Kin Unknown Unavailable Shakira Miller Next Of Kin [address] [place] [address] CHOOSES, TO LIST NOT Next Of Kin [address] [place] [address] [employer] [place] [address] DISABLED Next Of Kin Unknown Unavailable LISE KUNZ Next Of Kin Unknown Unavailab Bates Next Of Kin [address] [place] [address] [place] [address] [place] [address] KE[place] [address] AISHA CERTIFIED MEDICAL [place] [address] CECILIOWSBRYCE GUAJARDON [place] [address] GIO, [place] [address] SEEMA KUNZ Next Of Kin [address] [place] [address] UE Next Of Kin Unknown Unavailable UNEMPLOYED [place] [address] ST Next Of Kin Unknown Unavailable SADE OSULLIVAN Next Of Kin [address] [place] [address] WILLA OSULLIVAN Next Of Kin [address] [place] [address] ZAIRAROLAN FORTUNENA [facility] [address] [place] [address] Unavailable Care Team Providers Care Airport Engineer Name Role Phone COLT, L GHISLAINE PA [...] Dana Dalton MD Unavailable Unavailable Shakira Tobias QUALITY CONTROL TECHNICIAN QUALITY CONTROL TECHNICIAN Unavailable Unavailable Jada PURDY MD Unavailable Unavailable [...] Unavailable BREANNE, Jada CERDA MD Unavailable Unavailable Meliza Sultana Unavailable Tobias, F Shakira QUALITY CONTROL TECHNICIAN-BC Unavailable Unavailable Tobias, F Shakira QUALITY CONTROL TECHNICIAN-BC Unavailable Unavailable Tobias, F Shakira QUALITY CONTROL TECHNICIAN-BC Unavailable Unavailable Tobias, F Shakira QUALITY CONTROL TECHNICIAN-BC Unavailable Unavailable Tobias, F Shakira QUALITY CONTROL TECHNICIAN-BC Unavailable Unavailable Tobias, F Shakira QUALITY CONTROL TECHNICIAN-BC Unavailable Unavailable Tobias, F Shakira QUALITY CONTROL TECHNICIAN-BC Unavailable Unavailable Tobias, F Shakira QUALITY CONTROL TECHNICIAN-BC Unavailable Unavailable Tobias, F Shakira QUALITY CONTROL TECHNICIAN-BC Unavailable Unavailable Tobias, F Shakira QUALITY CONTROL TECHNICIAN-BC Unavailable Unavailable Tobias, F Shakira QUALITY CONTROL TECHNICIAN-BC Unavailable Unavailable Tobias, F Shakira QUALITY CONTROL TECHNICIAN-BC Unavailable Unavailable Tobias, F Shakira QUALITY CONTROL TECHNICIAN-BC Unavailable Unavailable Tobias, F Shakira QUALITY CONTROL TECHNICIAN-BC Unavailable Unavailable Tobias, F Shakira QUALITY CONTROL TECHNICIAN-BC Unavailable Unavailable Tobias, F Shakira QUALITY CONTROL TECHNICIAN-BC Unavailable Unavailable Tobias, F Shakira QUALITY CONTROL TECHNICIAN-BC Unavailable Unavailable Tobias, F Shakira QUALITY CONTROL TECHNICIAN-BC Unavailable Unavailable Tobias, F Shakira QUALITY CONTROL TECHNICIAN-BC Unavailable Unavailable Tobias, F Shakira QUALITY CONTROL TECHNICIAN-BC Unavailable Unavailable Tobias, F Shakira QUALITY CONTROL TECHNICIAN-BC Unavailable Unavailable Tobias, F Shakira QUALITY CONTROL TECHNICIAN-BC Unavailable Unavailable Rotella, Cheyenne Unavailable Edgar Sharla Unavailable Dana Dalton MD Unavailable Unavailable Dana [...] Unavailable Kenya Brody Unavailable JIM, H CAROLANN EFFICIENCY MANAGER Unavailable Unavailable JIM, H CAROLANN EFFICIENCY MANAGER Unavailable Unavailable JIM, H CAROLANN EFFICIENCY MANAGER Unavailable Unavailable JIM, H CAROLANN EFFICIENCY MANAGER Unavailable Unavailable JIM, H CAROLANN EFFICIENCY MANAGER Unavailable Unavailable JIM, H CAROLANN EFFICIENCY MANAGER Unavailable Unavailable JIM, H CAROLANN EFFICIENCY MANAGER Unavailable Unavailable Yolanda Corrales Unavailable SYSTEM [...] is protected by Article 27-F of the [place] State Public Health law. If you continue you may have access to information: Regarding HIV / AIDS; Provided by facilities licensed or operated by the [facility] Office of Mental Health; or Provided by the [facility] Office for People With Developmental Disabilities. If such information is present, then the following [facility] mandated warning applies: This information has [...] law may result in a fine or [place] health care facility sentence or both. A general authorization for the release of medical or other information is NOT sufficient authorization for further disc losure. Allergies and Adverse Reactions Type Description Substance Reaction Status Data Source(s ) Propensity to adverse reactions to substance nkda 24 HR Bupropion Hydrochloride 150 MG Extended Release Oral Tablet Active [facility] ([facility]) Drug allergy Invega paliperidone facial droopness Active eCW 1 ([facility]) Family History Family Member Name Family Member Gender Family Member Status Date o f Status Description Data Source(s) Unknown Male Problem MEDENT ([facility]) Encounters Encounter Providers Location Date Indications Data Source(s ) Outpatient Attender: CAROLANN FERNANDEZ NP EMERGENCY ROOM-[facility]OT [facility] 04/07/2020 08:05:00 AM EST - 04/07/2020 08:05:00 AM EST [facility] Outpatient Attender: CAROLANN FERNANDEZ NP [facility] 04/07/2020 01:00:00 AM EST - 04/07/2020 01:00:00 AM EST [facility] ([facility]) Attender: CAROLANN FERNANDEZ NP 04/07/2020 12:00:00 AM EST [facility] ([facility]) Attender: Sharla Hernández 04/07/2020 12:00:00 A M EST [facility] ([facility]) Brief Individual Psychotherapy - 30 min Attender: Sharla ahn [facility] 04/06/2020 10:45:00 AM EST - 04/06/2020 10:45:00 AM EST [facility] ([facility]) [facility] [address] [place] [address] 04/02/2020 12:00:00 AM EST eCW1 ([facility]) Outpatient Attender: CAROLANN FERNANDEZ NP EMERGENCY ROOM-[facility]OT [facility] 03/31/2020 08:22:00 AM EST - 03/31/2020 08:22:00 AM [facility] Brief Individual Psychotherapy - 30 min Attender: Meliza munoz [facility] 03/30/2020 03:00:00 AM EST - 03/30/2020 03:00:00 AM EST [facility] ([facility]) Attender: Meliza Sultana 03/30/2020 12:00:00 AM EST [facility] ([facility]) Outpatient Attender: CAROLANN FERNANDEZ NPReferrer: Dominique Dalton MD EMERGENCY ROOM-LABOTHPROV 03/24/2020 08:08:00 AM EST - 03/24/2020 08:08:00 AM [facility] Outpatient Attender: CAROLANN FERNANDEZ NP [facility] 03/24/2020 02:30:00 AM EST - 03/24/2020 02:30:00 AM EST [facility] ([facility]) Attender: CAROLANN FERNANDEZ NP 03/24/2020 12:00:00 AM EST [facility] ([facility]) Outpatient Att[facility]: [facility] 03/10/2020 09:30:00 AM EST - 03/10/2020 09:30:00 AM EST [facility] ([facility]) Attender: CAROLANN FERNANDEZ NP 03/10/2020 12:00:00 AM EST [facility] ([facility]) Unknown [address] [facility] [address] 03/06/2020 12:00:00 AM EST eCW1 ([facility]) Emergency Attender: GHISLAINE GREGORY PAReferrer: Branden Dalton MD EMERGENCY ROOM-ER 03/04/2020 09:48:00 PM EST - 03/04/2020 11:40:00 PM [facility] Patient discharged. Brief Individual Psychotherapy - 30 min Attender: Meliza munoz [facility] 03/03/2020 03:00:00 AM EST - 03/03/2020 03:00:00 AM EST [facility] ([facility]) Attender: Meliza Sultana 03/03/2020 12:00:00 AM EST [facility] ([facility]) Outpatient Referrer: PROVIDER SYSTEM IN 01/31/2020 1 1:26:00 PM EST suicidal ideations [facility] suicidal ideations Outpatient Attender: CAROLANN FERNANDEZ NP [facility] forrester 01/27/2020 05:00:00 AM EST - 01/27/2020 05:00:00 AM EST [facility] ([facility]) Attender: CAROLANN FERNANDEZ NP 01/27/2020 12:00:00 AM EST [facility] ([facility]) Outpatient [address] [facility] [address] 01/24/2020 12:00:00 AM EST eCW1 ([facility]) [place] [address] [place] [address] 01/22/2020 12:00:00 AM EST eCW1 ([facility]) Brief Individual Psychotherapy - 30 min Attender: Meliza munoz [facility] 01/21/2020 01:30:00 AM EST - 01/21/2020 01:30:00 AM EST [facility] ([facility]) Attender: Meliza Sultana 01/21/2020 12:00:00 AM EST [facility] ([facility]) Injectable Medication Administration w/ Monitoring & E ducation Attender: Kenya Brody [facility] 01/16/2020 10:30:00 AM EDT - 01/16/2020 10:30:00 AM EDT [facility] ([facility]) Attender: Kenya Brody 01/16/2020 12:00:00 AM EDT [facility] ([facility]) Extended Individual Psychotherapy - 45 min [place] [facility] 12/30/2019 02:45:00 AM EDT - 12/30/2019 02:45:00 AM EDT [facility] ([facility]) Attender: Yolanda Corrales 12/30/2019 12:00:00 AM EDT [facility] ([facility]) Outpatient Attender: CAROLANN FERNANDEZ NP [facility] forrester 12/26/2019 04:30:00 AM EDT - 12/26/2019 04:30:00 AM EDT [facility] ([facility]) Attender: CAROLANN FERNANDEZ NP 12/26/2019 12:00:00 AM EDT [facility] ([facility]) Outpatient [address] [place] [address] 12/25/2019 12:00:00 AM EDT eCW1 ([facility]) Injectable Psychotropic Medication Administration (Inj ection Only) Attender: Cheyenne Allen [facility] 12/23/2019 02:00:00 AM EDT - 12/23/2019 02:00:00 AM EDT [facility] ([facility]) Attender: Cheyenne Allen 12/23/2019 12:00:00 AM EDT [facility] ([facility]) Office Visit, Est Pt., Level 3 PC [address] [place] [address] 12/20/2019 12:00:00 AM EDT eCW1 ([facility]) Attender: Cheyenne Allen 12/20/2019 12:00:00 AM EDT [facility] ([facility]) Injectable Psychotropic Medication Administration (Inj ection Only) Att[facility]: [facility] 12/19/2019 11:00:00 AM EDT - 12/19/2019 11:00:00 AM EDT [facility] ([facility]) Outpatient Attender: CAROLANN FERNANDEZ NP [facility] forrester 11/27/2019 04:30:00 AM EDT - 11/27/2019 04:30:00 AM EDT [facility] ([facility]) Attender: CAROLANN FERNANDEZ NP 11/27/2019 12:00:00 AM EDT [facility] ([facility]) Injectable Medication Administration w/ Monitoring & E ducation Attender: Kenya Ronn [facility] 11/21/2019 03:00:00 AM EDT - 11/21/2019 03:00:00 AM EDT [facility] ([facility]) Attender: Kenya Ronn 11/21/2019 12:00:00 AM EDT [facility] ([facility]) Outpatient Attender: ABRAHAM CORTEZ 11/08/2019 05:02:00 PM EDT [facility] Outpatient Attender: ABRAHAM CORTEZ 10/18/2019 02:30:05 PM EDT [facility] Outpatient Attender: Shakira CORTEZ 10/18/2019 02: 30:04 PM EDT [facility] Outpatient Attender: ABRAHAM CORTEZ 10/17/2019 10:04:01 AM EDT [facility] Outpatient Attender: ABRAHAM CORTEZ 10/09/2019 07:11:00 AM EDT [facility] Outpatient Attender: Shakira CORTEZ 10/08/2019 01: 38:59 PM EDT [facility] Outpatient Attender: ABRAHAM CORTEZ 10/08/2019 12:36:01 PM EDT [facility] Outpatient Attender: ABRAHAM CORTEZ 10/08/2019 12:33:01 PM EDT [facility] Outpatient Attender: ABRAHAM CORTEZ 10/07/2019 01:47:01 PM EDT [facility] Unknown [address] [facility] [address] 10/02/2019 12:00:00 AM EDT eCW1 ([facility]) Unknown [address] [facility] [address] 10/02/2019 12:00:00 AM EDT eCW1 ([facility]) TEMPMHCTelemed 30" Psychotherapy Attender: Yolanda Mello [facility] 09/19/2019 11:30:00 AM EDT - 09/19/2019 11:30:00 AM EDT [facility] ([facility]) Attender: Yolanda Corrales 09/19/2019 12:00:00 AM EDT [facility] ([facility]) Outpatient Attender: Isaias Purdy/Lucian/Kevin/Rein ananya 09/12/2019 11:00:00 AM EDT MEDENT ([facility]) Outpatient Attender: CAROLANN FERNANDEZ NP [facility] usama 09/09/2019 02:00:00 AM EDT - 09/09/2019 02:00:00 AM EDT [facility] ([facility]) Attender: CAROLANN FERNANDEZ NP 09/09/2019 12:00:00 AM EDT [facility] ([facility]) Outpatient [address] [facility], [facility] [address] 09/04/2019 12:00:00 AM EDT [facility]CW1 [facility] Unknown [address] [facility] [address] 09/03/2019 12:00:00 AM EDT eCW1 ([facility]) [facility] Resident [address] [place] [address] 09/02/2019 12:00:00 AM EDT eCW1 ([facility]) Outpatient Attender: PRASHANT Purdy/Lucian/Kevin/Thuy forrester 08/26/2019 02:00:00 PM EDT MEDENT ([facility]) Unknown [address] [facility], [facility] [address] 08/21/2019 12:00:00 AM EDT eCW1 ([facility]) TEMPMHCTelemed 30" [facility] 08/14/2019 11:00:00 AM EDT - 08/14/2019 11:00:00 AM EDT [facility] ([facility]) Attender: Yolanda Corrales 08/14/2019 12:00:00 AM EDT [facility] ([facility]) TEMPMHCTelemed 30" Psychotherapy Attender: [facility]es [facility] 07/30/2019 01:30:00 AM EDT - 07/30/2019 01:30:00 AM EDT [facility] ([facility]) Attender: Yolanda Corrales 07/30/2019 12:00:00 AM EDT [facility] ([facility]) Attender: Kenya Brody 07/30/2019 12:00:00 AM EDT [facility] ([facility]) Injectable Medication Administration w/ Monitoring & E ducation Attender: Kenya Brody [facility] 07/29/2019 02:30:00 AM EDT - 07/29/2019 02:30:00 AM EDT [facility] ([facility]) Outpatient Attender: CAROLANN FERNANDEZ NP [facility] forrester 07/23/2019 04:00:00 AM EDT - 07/23/2019 04:00:00 AM EDT [facility] ([facility]) Attender: CAROLANN FERNANDEZ NP 07/23/2019 12:00:00 AM EDT [facility] ([facility]) Outpatient [address] [facility] [address] 07/22/2019 12:00:00 AM EDT eCW1 ([facility]) [facility] [place] [address] [facility] [address] 07/22/2019 12:00:00 AM EDT eCW1 ([facility]) TEMPMHCTelemed 30" Psychotherapy Attender: Yolanda Corrales [facility] 07/16/2019 01:30:00 AM EDT - 07/16/2019 01:30:00 AM EDT [facility] ([facility]) Attender: Yolanda Corrales 07/16/2019 12:00:00 AM EDT [facility] ([facility]) TEMPMHCTelemed 30" Psychotherapy Attender: Yolanda Corrales [facility] 07/01/2019 03:00:00 AM EDT - 07/01/2019 03:00:00 AM EDT [facility] ([facility]) Injectable Medication Administration w/ Monitoring & E ducation Attender: Kenya Brody [facility] 07/01/2019 01:30:00 AM EDT - 07/01/2019 01:30:00 AM EDT [facility] ([facility]) Attender: Yolanda Corrales 07/01/2019 12:00:00 AM EDT [facility] ([facility]) Attender: Kenya Brody 07/01/2019 12:00:00 AM EDT [facility] ([facility]) TEMPMHCTelemed 30" Psychotherapy Attender: Yolanda Corrales [facility] 06/25/2019 12:45:00 PM EDT - 06/25/2019 12:45:00 PM EDT [facility] ([facility]) Attender: Yolanda Corrales 06/25/2019 12:00:00 AM EDT [facility] ([facility]) Injectable Psychotropic Medication Administration (Inj ection Only) Attender: Cheyenne Allen [facility] 05/31/2019 08:30:00 AM EDT - 05/31/2019 08:30:00 AM EDT [facility] ([facility]) Attender: Cheyenne Allen 05/31/2019 12:00:00 AM EDT [facility] ([facility]) Injectable Medication Administration w/ Monitoring & E ducation Attender: Kenya Brody [facility] 05/29/2019 02:00:00 AM EDT - 05/29/2019 02:00:00 AM EDT [facility] ([facility]) Attender: Kenya Brody 05/29/2019 12:00:00 AM EDT [facility] ([facility]) [facility] [address] [place] [address] 05/28/2019 12:00:00 AM EDT eCW1 ([facility]) [facility] [address] [place] [address] 05/13/2019 12:00:00 AM EST eCW1 ([facility]) Brief Individual Psychotherapy - 30 min Attender: [facility] 05/09/2019 05:00:00 AM EST - 05/09/2019 05:00:00 AM EST [facility] ([facility]) Attender: Yolanda Corrales 05/09/2019 12:00:00 AM EST [facility] ([facility]) Injectable Medication Administration w/ Monitoring & E ducation Attender: Kenya [facility]dy [facility] 05/01/2019 02:00:00 AM EST - 05/01/2019 02:00:00 AM EST [facility] ([facility]) Attender: Kenya Brody 05/01/2019 12:00:00 AM EST [facility] ([facility]) Outpatient Attender: CAROLANN FERNANDEZ NP [facility] forrester 04/24/2019 02:30:00 AM EST - 04/24/2019 02:30:00 AM EST [facility] ([facility]) Attender: CAROLANN FERNANDEZ NP 04/24/2019 12:00:00 AM EST [facility] ([facility]) [facility] Resident [address] [place] [address] 04/20/2019 12:00:00 AM EST eCW1 ([facility]) [facility] [address] [facility], [facility] [address] 04/18/2019 12:00:00 AM EST eCW1 ([facility]) Outpatient Attender: Shakira MERCHANTBC DANA 04/16/2019 01: 51:03 PM [facility] Outpatient Attender: ABRAHAM CORTEZ 04/16/2019 12:24:00 PM [facility] Outpatient Attender: ABRAHAM CORTEZ 04/16/2019 12:23:00 PM [facility] Outpatient Attender: ABRAHAM CORTEZ 04/15/2019 04:41:01 PM [facility] Outpatient Attender: ABRAHAM CORTEZ 04/12/2019 04:10:00 PM [facility] Brief Individual Psychotherapy - 30 min Attender: Yolanda aguilar [facility] 04/11/2019 11:45:00 AM EST - 04/11/2019 11:45:00 AM EST [facility] ([facility]) Attender: Yolanda Corrales 04/11/2019 12:00:00 AM EST [facility] ([facility]) Outpatient Attender: ABRAHAM CORTEZ 04/08/2019 09:51:01 AM [facility] Outpatient Attender: ABRAHAM CORTEZ 04/08/2019 08:41:01 AM [facility] Outpatient Attender: ABRAHAM CORTEZ 04/08/2019 08:40:00 AM [facility] Outpatient Attender: ABRAHAM CORTEZ 04/08/2019 08:39:01 AM [facility] Outpatient Attender: ABRAHAM CORTEZ 04/08/2019 08:18:45 AM [facility] Outpatient Attender: Shakira ROSARIO-BC DANA 04/08/2019 08: 16:01 AM [facility] Outpatient Attender: ABRAHAM CORTEZ 04/08/2019 07:24:01 AM [facility] Outpatient Attender: ABRAHAM CORTEZ 04/08/2019 07:23:00 AM [facility] [address] [facility] [address] 04/08/2019 12:00:00 AM EST eCW1 ([facility]) Injectable Medication Administration w/ Monitoring & E ducation Attender: Kenya Brody [facility] 04/03/2019 02:00:00 AM EST - 04/03/2019 02:00:00 AM EST [facility] ([facility]) Attender: Kenya Brody 04/03/2019 12:00:00 AM EST [facility] ([facility]) [facility] [address] [facility] [address] 04/02/2019 12:00:00 AM EST eCW1 ([facility]) [facility] [place] [address] [facility] [address] 04/02/2019 12:00:00 AM EST eCW1 ([facility]) [facility] [address] [place] [address] 04/01/2019 12:00:00 AM EST eCW1 ([facility]) [facility] [address] [place] [address] 04/01/2019 12:00:00 AM EST eCW1 ([facility]) [facility]ME Resident [address] [place] [address] 03/29/2019 12:00:00 AM EST eCW1 ([facility]) Attender: Yolanda Corrales 03/28/2019 12:00:00 AM EST [facility] ([facility]) Outpatient Attender: CAROLANN FERNANDEZ NP [facility] usama 03/27/2019 09:00:00 AM EST - 03/27/2019 09:00:00 AM EST [facility] ([facility]) Attender: CAROLANN FERNANDEZ NP 03/27/2019 12:00:00 AM EST [facility] ([facility]) Outpatient Attender: ABRAHAM CORTEZ 03/26/2019 09:01:07 PM EST [facility] Extended Individual Psychotherapy - 45 min Attender: Jay Corrales [facility] 03/25/2019 04:00:00 AM EST - 03/25/2019 04:00:00 AM EST [facility] ([facility]) [facility] [place] [address] [facility] [address] 03/25/2019 12:00:00 AM EST eCW1 ([facility]) Outpatient Attender: ABRAHAM ROSARIO FP 03/14/2019 08:31:01 AM EST [facility] Extended Individual Psychotherapy - 45 min Attender: Jay Corrales [facility] 03/14/2019 05:30:00 AM EST - 03/14/2019 05:30:00 AM EST [facility] ([facility]) Attender: Yolanda Corrales 03/14/2019 12:00:00 AM EST [facility] ([facility]) Outpatient Attender: ABRAHAM Tobias [facility] 03/11/2019 10:56:00 AM EST [facility] Outpatient Attender: Shakira Tobias QUALITY CONTROL TECHNICIAN[facility] 03/11/2019 10: 54:01 AM EST [facility] 03/11/2019 10:49:00 AM EST [facility] Outpatient Attender: Branden Dalton MD 03/01/2019 12:20:01 PM EST [facility] Brief Individual Psychotherapy - 30 min Attender: Yolanda Delaney [facility] 03/01/2019 11:00:00 AM EST - 03/01/2019 11:00:00 AM EST [facility] ([facility]) Attender: Yolanda Corrales 03/01/2019 12:00:00 AM EST [facility] ([facility]) [address], [facility] [address] 02/20/2019 12:00:00 AM EST eC1 ([facility]) Brief Individual Psychotherapy - 30 min Attender: Yolanda Delaney jeff [facility] 02/12/2019 03:00:00 AM EST - 02/12/2019 03:00:00 AM EST [facility] ([facility]) Attender: Yolanda Corrales 02/12/2019 12:00:00 AM EST [facility] ([facility]) Functional Status Medications Medication Brand Name Start Date Product Form Dose Route Admi nistrative Instructions Pharmacy Instructions Status Indications Reaction Description Data Source(s) Clozapine 25 MG Oral Tablet [Clozaril] Clozaril 03/10/2020 12:0 0:00 AM EST 25 mg by mouth completed [id number] Clozaril by mouth [id number] 03/10/2020 05/18/2020 at bedtime 7 25 mg tablet [id number] Rere Fernandez [id number] Nurse Practitioner [facility] ([facility]) Clozapine 25 MG Oral Tablet [Clozaril] Clozaril 03/10/2020 12:0 0:00 AM EST 25 mg by mouth completed [id number] Clozaril by mouth [id number] 03/10/2020 05/18/2020 at bedtime 7 25 mg tablet [id number] Rere Fernandez [id number] Nurse Practitioner [facility] ([facility]) Haloperidol 5 MG Oral Tablet haloperidol 01/27/2020 12:00:00 AM EST 5 mg by mouth completed [id number] haloperidol by mouth [id number] 01/2601/27/2020 twice a day 30 5 mg tablet 67916 [id number] [id number] Lance Fernandez [id number] Nurse Practitioner [facility] ([facility]) Haloperidol 5 MG Oral Tablet haloperidol 12/26/2019 12:00:00 AM EDT 5 mg by mouth completed [id number] haloperidol by mouth [id number] 12/2501/27/2020 twice a day 30 5 mg tablet 91838 [id number] Lance Fernandez [id number] Nurse Practitioner [facility] ([facility]) Haloperidol 5 MG Oral Tablet haloperidol 12/26/2019 12:00:00 AM EDT 5 mg by mouth completed [id number] haloperidol by mouth [id number] 12/2502/24/2020 twice a day 30 5 mg tablet 21105 [id number] Lance Fernandez [id number] Nurse Practitioner [facility] ([facility]) Sertraline 100 MG Oral Tablet sertraline 12/04/2019 12:00:00 AM EDT 100 mg completed [id number] sertraline 12/04/2019 02/24/2020 every morning 30 100 mg tablet [id number] Carolann Fernandez [id number] Nurse Practitioner [facility] ([facility]) Haloperidol 5 MG Oral Tablet haloperidol 12/04/2019 12:00:00 AM EDT 5 mg completed [id number] haloperidol 12/04/2019 02/02/2020 30 5 mg tablet [id number] Carolann Fernandez [id number] Nurse Mini palacios [facility] ([facility]) Sertraline 100 MG Oral Tablet sertraline 12/04/2019 12:00:00 AM EDT 100 mg completed [id number] sertraline 12/04/2019 01/27/2020 every morning 30 100 mg tablet 69874 [id number] Carolann Fernandez [id number] Nurse Practitioner [facility] ([facility]) Trazodone Hydrochloride 50 MG Oral Tablet trazodone 2019 12:00:00 AM EDT 50 mg completed [id number] trazodone 11/04/2019 at bedtime 50 mg tablet as needed [id number] [id number] Carolann Fernandez [id number] Nurse Practitioner [facility] ([facility]) 12 HR Bupropion Hydrochloride 100 MG Extended Release Oral Tablet [Wellbutrin] Wellbutrin SR 10/30/2019 12:00:00 AM EDT 100 mg by mouth co mpleted [id number] Wellbutrin SR by mouth [id number] 10/30/2019 11/29/2019 once a day 30 100 mg tablet sustained-release 12 hr 78450 [id number] [id number] Rosalino Fernandez [id number] Nurse Practitioner [facility] ([facility]) doxycycline hyclate 100 MG Oral Capsule Doxycycline Hyclate 09/12/2019 12:00:00 AM EDT ORAL completed [facility] ([facility], ) Prazosin 1 MG Oral Capsule prazosin 08/27/2019 12:00:00 AM EDT 1 mg completed [id number] prazosin 08/27/2019 1 mg capsule 21335 [id number] [phone] Carolann Fernandez [id number] Nurse Practitioner [facility] ([facility]) Cholecalciferol 1000 UNT Oral Tablet Vitamin D 25 MCG (1000 UT) Vitamin D 25 MCG (1000 UT) 08/21/2019 12:00:00 AM EDT 1.0 {tablet} a ctive Vitamin D 25 MCG (1000 UT) eCW1 ([facility]) Cholecalciferol 1000 UNT Oral Tablet Vitamin D 25 MCG (1000 UT) Vitamin D 25 MCG (1000 UT) 08/21/2019 12:00:00 AM EDT 1.0 {tablet} a ctive Vitamin D 25 MCG (1000 UT) eCW1 ([facility]) Cholecalciferol 1000 UNT Oral Tablet Vitamin D 25 MCG (1000 UT) Vitamin D 25 MCG (1000 UT) 08/21/2019 12:00:00 AM EDT 1.0 {tablet} a ctive Vitamin D 25 MCG (1000 UT) eCW1 ([facility]) Cholecalciferol 1000 UNT Oral Tablet Vitamin D 25 MCG (1000 UT) Vitamin D 25 MCG (1000 UT) 08/21/2019 12:00:00 AM EDT 1.0 {tablet} a ctive Vitamin D 25 MCG (1000 UT) eCW1 ([facility]) Cholecalciferol 1000 UNT Oral Tablet Vitamin D 25 MCG (1000 UT) Vitamin D 25 MCG (1000 UT) 08/21/2019 12:00:00 AM EDT 1.0 {tablet} a ctive Vitamin D 25 MCG (1000 UT) eCW1 ([facility]) Cholecalciferol 1000 UNT Oral Tablet Vitamin D 25 MCG (1000 UT) Vitamin D 25 MCG (1000 UT) 08/21/2019 12:00:00 AM EDT 1.0 {tablet} a ctive Vitamin D 25 MCG (1000 UT) eCW1 ([facility]) Cholecalciferol 1000 UNT Oral Tablet Vitamin D 25 MCG (1000 UT) Vitamin D 25 MCG (1000 UT) 08/21/2019 12:00:00 AM EDT 1.0 {tablet} a ctive Vitamin D 25 MCG (1000 UT) eCW1 ([facility]) Cholecalciferol 1000 UNT Oral Tablet Vitamin D 25 MCG (1000 UT) Vitamin D 25 MCG (1000 UT) 08/21/2019 12:00:00 AM EDT 1.0 {tablet} a ctive Vitamin D 25 MCG (1000 UT) eCW1 ([facility]) Cholecalciferol 1000 UNT Oral Tablet Vitamin D 25 MCG (1000 UT) Vitamin D 25 MCG (1000 UT) 08/21/2019 12:00:00 AM EDT 1.0 {tablet} a ctive Vitamin D 25 MCG (1000 UT) eCW1 ([facility]) Cholecalciferol 1000 UNT Oral Tablet Vitamin D 25 MCG (1000 UT) Vitamin D 25 MCG (1000 UT) 08/21/2019 12:00:00 AM EDT 1.0 {tablet} a ctive Vitamin D 25 MCG (1000 UT) eCW1 ([facility]) Cholecalciferol 1000 UNT Oral Tablet Vitamin D 25 MCG (1000 UT) Vitamin D 25 MCG (1000 UT) 08/21/2019 12:00:00 AM EDT 1.0 {tablet} a ctive Vitamin D 25 MCG (1000 UT) [facility] ([facility]) benztropine mesylate 1 MG Oral Tablet benztropine 07/23/2019 12:00 :00 AM EDT 1 mg completed [id number] benztropine 07/23/2019 11/08/19 20 30 1 mg tablet 44529 [id number] Carolann Fernandez [id number] Nurse P cheryl [facility] ([facility]) Sertraline 100 MG Oral Tablet sertraline 07/23/2019 12:00:00 AM EDT 100 mg completed [id number] sertraline 07/23/2019 12/29/2019 every morning 30 100 mg tablet 43293 [id number] [id number] Carolann Fernandez [id number] Nurse Practitioner [facility] ([facility]) Sertraline 100 MG Oral Tablet sertraline 07/23/2019 12:00:00 AM EDT 100 mg completed [id number] sertraline 07/23/2019 09/21/2019 every morning 30 100 mg tablet [id number] [id number] Carolann Fernandez [id number] Nurse Practitioner [facility] ([facility]) benztropine mesylate 1 MG Oral Tablet benztropine 07/23/2019 12:00 :00 AM EDT 1 mg completed [id number] benztropine 07/23/2019 03/30/19 21 30 1 mg tablet 42804 [id number] Carolann Fernandez [id number] Nurse P cheryl [facility] ([facility]) benztropine mesylate 1 MG Oral Tablet benztropine 07/23/2019 12:00 :00 AM EDT 1 mg completed [id number] benztropine 07/23/2019 09/21/19 20 30 1 mg tablet 24761 [id number] Carolann Fernandez [id number] Nurse P ractitioner [facility] ([facility]) benztropine mesylate 1 MG Oral Tablet benztropine 07/23/2019 12:00 :00 AM EDT 1 mg completed [id number] benztropine 07/23/2019 02/24/20 20 30 1 mg tablet 45055 [id number] Carolann Fernandez [id number] Nurse P ractitioner [facility] ([facility]) Haloperidol 5 MG Oral Tablet haloperidol 06/05/2019 12:00:00 AM EDT 5 mg completed [id number] haloperidol 06/05/2019 11/08/2019 30 5 mg tablet 31205 [id number] [id number] Carolann Fernandez [id number] Nurse Practitione r [facility] ([facility]) Haloperidol 5 MG Oral Tablet haloperidol 06/05/2019 12:00:00 AM EDT 5 mg completed [id number] haloperidol 06/05/2019 12/29/2019 30 5 mg tablet 79664 [id number] [id number] Carolann Fernandez [id number] Nurse Practitione r [facility] ([facility]) Amantadine Hydrochloride 100 MG Oral Capsule amantadine HCl 06/05/2019 12:00:00 AM EDT 100 mg completed [id number] amantadine HCl 06/05/2019 02/24/2020 30 100 mg capsule 96004 [id number] Rosalino Fernandez [id number] Nurse Practitioner [facility] ([facility]) Prazosin 1 MG Oral Capsule prazosin 06/05/2019 12:00:00 AM EDT 1 mg completed [id number] prazosin 06/05/2019 30 1 mg capsule 47082 [id number] Kellen Matute [id number] Psychiatric/Mental Health [facility] ([facility]) Prazosin 1 MG Oral Capsule prazosin 06/05/2019 12:00:00 AM EDT 1 mg completed [id number] prazosin 06/05/2019 08/22/2019 30 1 mg capsule 96039 [id number] [id number] Carolann Fernandez [id number] Nurse Practitioner [facility] ([facility]) Amantadine Hydrochloride 100 MG Oral Capsule amantadine HCl 06/05/2019 12:00:00 AM EDT 100 mg completed [id number] amantadine HCl 30 100 mg capsule 54218 [id number] [id number] Carolann Fernandez [id number] Nurse Practitioner [facility] ([facility]) Amantadine Hydrochloride 100 MG Oral Capsule amantadine HCl 06/05/2019 12:00:00 AM EDT 100 mg completed [id number] amantadine HCl 06/05/2019 03/30/2020 30 100 mg capsule [id number] Rosalino Fernandez [id number] Nurse Practitioner [facility] ([facility]) Amantadine Hydrochloride 100 MG Oral Capsule amantadine HCl 06/05/2019 12:00:00 AM EDT 100 mg completed [id number] amantadine HCl 06/05/2019 12/29/2019 30 100 mg capsule 38806 [id number] [id number] Rosalino Fernandez [id number] Nurse Practitioner [facility] ([facility]) Fluconazole 150 MG Oral Tablet Fluconazole 150 MG 05/13/2019 12:00: 00 AM EST 1.0 {tablet} active Fluconazole 150 MG eCW1 ([facility]) Fluconazole 150 MG Oral Tablet Fluconazole 150 MG 05/13/2019 12:00: 00 AM EST 1.0 {tablet} active Fluconazole 150 MG eCW1 ([facility]) Fluconazole 150 MG Oral Tablet Fluconazole 150 MG 05/13/2019 12:00: 00 AM EST active 1 tablet eCW1 ([facility]) Fluconazole 150 MG Oral Tablet Fluconazole 150 MG 05/13/2019 12:00: 00 AM EST 1.0 {tablet} active Fluconazole 150 MG eCW1 ([facility]) Fluconazole 150 MG Oral Tablet Fluconazole 150 MG 05/13/2019 12:00: 00 AM EST 1.0 {tablet} active Fluconazole 150 MG eCW1 ([facility]) Fluconazole 150 MG Oral Tablet Fluconazole 150 MG 05/13/2019 12:00: 00 AM EST 1.0 {tablet} active Fluconazole 150 MG eCW1 ([facility]) Fluconazole 150 MG Oral Tablet Fluconazole 150 MG 05/13/2019 12:00: 00 AM EST active 1 tablet eCW1 ([facility]) Fluconazole 150 MG Oral Tablet Fluconazole 150 MG 05/13/2019 12:00: 00 AM EST 1.0 {tablet} active Fluconazole 150 MG eCW1 ([facility]) Clotrimazole 10 MG/ML Topical Cream Clotrimazole 1 % Clotrim azole 1 % 04/01/2019 12:00:00 AM EST 1.0 {application_at_bedtime} ac tive Clotrimazole 1 % eCW1 ([facility]) Clotrimazole 10 MG/ML Topical Cream Clotrimazole 1 % Clotrim azole 1 % 04/01/2019 12:00:00 AM EST 1.0 {application_at_bedtime} ac tive Clotrimazole 1 % eCW1 ([facility]) Clotrimazole 10 MG/ML Topical Cream Clotrimazole 1 % Clotrim azole 1 % 04/01/2019 12:00:00 AM EST active 1 appli cation at bedtime eCW1 ([facility]) Clotrimazole 10 MG/ML Topical Cream Clotrimazole 1 % Clotrim azole 1 % 04/01/2019 12:00:00 AM EST active 1 appli cation at bedtime eCW1 ([facility]) Clotrimazole 10 MG/ML Topical Cream Clotrimazole 1 % Clotrim azole 1 % 04/01/2019 12:00:00 AM EST 1.0 {application_at_bedtime} ac tive Clotrimazole 1 % eCW1 ([facility]) Clotrimazole 10 MG/ML Topical Cream Clotrimazole 1 % Clotrim azole 1 % 04/01/2019 12:00:00 AM EST 1.0 {application_at_bedtime} ac tive Clotrimazole 1 % eCW1 ([facility]) Clotrimazole 10 MG/ML Topical Cream Clotrimazole 1 % Clotrim azole 1 % 04/01/2019 12:00:00 AM EST 1.0 {application_at_bedtime} ac tive Clotrimazole 1 % eCW1 ([facility]) Clotrimazole 10 MG/ML Topical Cream Clotrimazole 1 % Clotrim azole 1 % 04/01/2019 12:00:00 AM EST 1.0 {application_at_bedtime} ac tive Clotrimazole 1 % eCW1 ([facility]) Fluconazole 150 MG Oral Tablet Fluconazole 150 MG 04/01/2019 12:00: 00 AM EST active 1 tablet eCW1 ([facility]) Nicotine 4 MG/ACTUAT Inhalant Solution [Nicotrol] Nicotrol 1 0 MG Nicotrol 10 MG 03/29/2019 12:00:00 AM EST active Nicotrol 10 MG eCW1 ([facility]) Nicotine 4 MG/ACTUAT Inhalant Solution [Nicotrol] Nicotrol 1 0 MG Nicotrol 10 MG 03/29/2019 12:00:00 AM EST active Nicotrol 10 MG eCW1 ([facility]) Nicotine 4 MG/ACTUAT Inhalant Solution [Nicotrol] Nicotrol 1 0 MG Nicotrol 10 MG 03/29/2019 12:00:00 AM EST active Nicotrol 10 MG eCW1 ([facility]) Nicotine 4 MG/ACTUAT Inhalant Solution [Nicotrol] Nicotrol 1 0 MG Nicotrol 10 MG 03/29/2019 12:00:00 AM EST active Nicotrol 10 MG eCW1 ([facility]) Nicotine 4 MG/ACTUAT Inhalant Solution [Nicotrol] Nicotrol 1 0 MG Nicotrol 10 MG 03/29/2019 12:00:00 AM EST active Nicotrol 10 MG eCW1 ([facility]) Nicotine 4 MG/ACTUAT Inhalant Solution [Nicotrol] Nicotrol 1 0 MG Nicotrol 10 MG 03/29/2019 12:00:00 AM EST active Nicotrol 10 MG eCW1 ([facility]) Nicotine 4 MG/ACTUAT Inhalant Solution [Nicotrol] Nicotrol 1 0 MG Nicotrol 10 MG 03/29/2019 12:00:00 AM EST active 1 cartridge as needed( mdd of 4 cartridges) eCW1 ([facility]) Nicotine 4 MG/ACTUAT Inhalant Solution [Nicotrol] Nicotrol 1 0 MG Nicotrol 10 MG 03/29/2019 12:00:00 AM EST active 1 cartridge as needed( mdd of 4 cartridges) eCW1 ([facility]) Nicotine 4 MG/ACTUAT Inhalant Solution [Nicotrol] Nicotrol 1 0 MG Nicotrol 10 MG 03/29/2019 12:00:00 AM EST active Nicotrol 10 MG eCW1 ([facility]) Nicotine 4 MG/ACTUAT Inhalant Solution [Nicotrol] Nicotrol 1 0 MG Nicotrol 10 MG 03/29/2019 12:00:00 AM EST active 1 cartridge as needed( mdd of 4 cartridges) eCW1 ([facility]) Nicotine 4 MG/ACTUAT Inhalant Solution [Nicotrol] Nicotrol 1 0 MG Nicotrol 10 MG 03/29/2019 12:00:00 AM EST active Nicotrol 10 MG eCW1 ([facility]) Nicotine 4 MG/ACTUAT Inhalant Solution [Nicotrol] Nicotrol 1 0 MG Nicotrol 10 MG 03/29/2019 12:00:00 AM EST active Nicotrol 10 MG eCW1 ([facility]) Nicotine 4 MG/ACTUAT Inhalant Solution [Nicotrol] Nicotrol 1 0 MG Nicotrol 10 MG 03/29/2019 12:00:00 AM EST active Nicotrol 10 MG eCW1 ([facility]) Nicotine 4 MG/ACTUAT Inhalant Solution [Nicotrol] Nicotrol 1 0 MG Nicotrol 10 MG 03/29/2019 12:00:00 AM EST active Nicotrol 10 MG eCW1 ([facility]) Trazodone Hydrochloride 50 MG Oral Tablet trazodone 2018 12:00:00 AM EST 50 mg completed [id number] trazodone 02/21/2019 04/0 09/2019 30 50 mg tablet [id number] [phone] Carolann Fernandez [id number] Nurse Practitioner [facility] ([facility]) Trazodone Hydrochloride 50 MG Oral Tablet trazodone 2018 12:00:00 AM EST 50 mg completed [id number] trazodone 02/21/2019 060 06/2019 30 50 mg tablet 34180 [id number] [id number] Carolann Fernandez [id number] Nurse Practitioner [facility] ([facility]) Trazodone Hydrochloride 50 MG Oral Tablet trazodone 2018 12:00:00 AM EST 50 mg completed [id number] trazodone 02/21/20192 04/2019 30 50 mg tablet 49905 [id number] [id number] Carolann Fernandez [id number] Nurse Practitioner [facility] ([facility]) benztropine mesylate 1 MG Oral Tablet benztropine 02/21/2019 12:00 :00 AM EST 1 mg completed [id number] benztropine 02/21/2019 06/25/19 20 30 1 mg tablet 71562 [id number] Carolann Fernandez [id number] Nurse P karlieer [facility] ([facility]) benztropine mesylate 1 MG Oral Tablet benztropine 02/21/2019 12:00 :00 AM EST 1 mg completed [id number] benztropine 02/21/2019 30 1 mg tablet 36219 [id number] Carolann Fernandez [id number] Nurse Torrese r [facility] ([facility]) Haloperidol 5 MG Oral Tablet haloperidol 02/05/2019 12:00:00 AM EST 5 mg by mouth completed [id number] haloperidol by mouth [id number] 02/0505/26/2019 twice a day 30 5 mg tablet 40709 [id number] [phone] Lance Fernandez [id number] Nurse Practitioner [facility] ([facility]) Haloperidol 5 MG Oral Tablet haloperidol 02/05/2019 12:00:00 AM EST 5 mg by mouth completed [id number] haloperidol by mouth [id number] 02/0505/26/2019 twice a day 30 5 mg tablet 57733 [id number] [id number] Lance Fernandez [id number] Nurse Practitioner [facility] ([facility]) Haloperidol 5 MG Oral Tablet haloperidol 02/05/2019 12:00:00 AM EST 5 mg by mouth completed [id number] haloperidol by mouth [id number] 02/0504/06/2019 twice a day 30 5 mg tablet 11258 [id number] [id number] Lance Fernandez [id number] Psychiatric/Mental Health [facility] ([facility]) Ingrezza Ingrezza 12/11/2018 12:00:00 AM EDT 40 mg by mouth completed [id number] Ingrezza by mouth [id number] 12/11/2018 02/09/2019 every morning 30 40 mg capsule 88123 [id number] [phone] Carolann Fernandez [id number] P sychiatric/Mental Health [facility] ([facility]) Ingrezza Ingrezza 12/11/2018 12:00:00 AM EDT 40 mg by mouth completed [id number] Ingrezza by mouth [id number] 12/11/2018 02/09/2019 every morning 30 40 mg capsule 29551 [id number] [id number] Carolann Fernandez [id number] P sychiatric/Mental Health [facility] ([facility]) Ingrezza Ingrezza 12/11/2018 12:00:00 AM EDT 40 mg by mouth completed [id number] Ingrezza by mouth [id number] 12/11/2018 02/09/2019 every morning 30 40 mg capsule 78746 [id number] [id number] Carolann Fernandez [id number] P sychiatric/Mental Health [facility] ([facility]) Amantadine Hydrochloride 100 MG Oral Capsule amantadine HCl 11/14/2018 12:00:00 AM EDT 100 mg by mouth completed [id number] amantadine HCl by mouth [id number] 11/14/2018 05/26/2019 at bedtime 30 100 mg capsule 21120 [id number] [id number] Carolann Fernandez [id number] Nurse Practitioner [facility] ([facility]) Amantadine Hydrochloride 100 MG Oral Capsule amantadine HCl 11/14/2018 12:00:00 AM EDT 100 mg by mouth completed 164159 amantadine HCl by mouth [id number] 11/14/2018 05/26/2019 at bedtime 30 100 mg capsule 42731 [id number] Carolann Jim [id number] Nurse Practitioner [facility] ([facility]) Amantadine Hydrochloride 100 MG Oral Capsule amantadine HCl 11/14/2018 12:00:00 AM EDT 100 mg by mouth completed [id number] amantadine HCl by mouth [id number] 11/14/2018 04/06/2019 at bedtime 30 100 mg capsule 25603 [id number] Carolann Ijm [id number] Nurse Practitioner [facility] ([facility]) Amantadine Hydrochloride 100 MG Oral Capsule amantadine HCl 11/14/2018 12:00:00 AM EDT 100 mg by mouth completed [id number] amantadine HCl by mouth [id number] 11/14/2018 04/06/2019 at bedtime 30 100 mg capsule 70096 [id number] [id number] Carolann Jim [id number] Psychiatric/Mental Health [facility] ([facility]) Haldol Decanoate Haldol Decanoate 10/10/2018 12:00:00 AM EDT 100 mg/mL completed [id number] Haldol Decanoate intramuscularly 10/1005/01/2019 every four weeks 28 100 mg/mL solution 47325 [phone] Carolannvivian Fernandez [id number] Psychiatric[facility]Mental Health [facility] ([facility]) benztropine mesylate 1 MG Oral Tablet benztropine 08/16/2018 12:00 :00 AM EDT 1 mg by mouth completed [id number] benztropine by mouth [id number] 08/16/2018 04/06/2019 twice a day 30 1 mg tablet 91227 [id number] [id number] Lance desai Jim [id number] [facility] ([facility]) Trazodone Hydrochloride 50 MG Oral Tablet trazodone 2018 12:00:00 AM EDT 50 mg by mouth completed [id number] trazodone by mouth [id number] 08/16/2018 04/06/2019 at bedtime 30 50 mg tablet 76666 [id number] Rere Fernandez [id number] Psych[facility] Health [facility] ([facility]) benztropine mesylate 1 MG Oral Tablet benztropine 08/16/2018 12:00 :00 AM EDT 1 mg by mouth completed [id number] benztropine by mouth [id number] 08/16/2018 04/06/2019 twice a day 30 1 mg tablet 96173 [id number] Lance Fernandez [id number] Psych[facility] Health [facility] ([facility]) Trazodone Hydrochloride 50 MG Oral Tablet trazodone 2018 12:00:00 AM EDT 50 mg by mouth completed [id number] trazodone by mouth [id number] 88 08/16/2018 04/06/2019 at bedtime 30 50 mg tablet 55992 [id number] Rere Fernandez [id number] Psych[facility] Health [facility] ([facility]) benztropine mesylate 1 MG Oral Tablet benztropine 08/16/2018 12:00 :00 AM EDT 1 mg by mouth completed [id number] benztropine by mouth [id number] 08/16/2018 04/06/2019 twice a day 30 1 mg tablet 92838 [id number] [id number] Lance Fernandez [id number] Psych[facility] Health [facility] ([facility]) Trazodone Hydrochloride 50 MG Oral Tablet trazodone 2018 12:00:00 AM EDT 50 mg by mouth completed [id number] trazodone by mouth [id number] 08/16/2018 04/06/2019 at bedtime 30 50 mg tablet 30588 [id number] Rere Fernandez [id number] [facility] ([facility]) Prazosin 1 MG Oral Capsule prazosin 07/18/2018 12:00:00 AM EDT 1 mg by mouth completed [id number] prazosin by mouth [id number] 07/18/2018 at bedtime 30 1 mg capsule 56233 [id number] [id number] Carolann Fernandez 3 [id number] Psych[facility] ([facility]) Prazosin 1 MG Oral Capsule prazosin 07/18/2018 12:00:00 AM EDT 1 mg by mouth completed [id number] prazosin by mouth [id number] 07/18/2018 at bedtime 30 1 mg capsule 43472 [id number] Carolann Fernandez 3 [id number] Nurse Practitioner [facility] ([facility]) Prazosin 1 MG Oral Capsule prazosin 07/18/2018 12:00:00 AM EDT 1 mg by mouth completed [id number] prazosin by mouth [id number] 07/18/201810/2019 at bedtime 30 1 mg capsule 78676 [id number] [phone] Carolann Fernandez 3 [id number] Nurse Practitioner [facility] ([facility]) Prazosin 1 MG Oral Capsule prazosin 07/18/2018 12:00:00 AM EDT 1 mg by mouth completed [id number] prazosin by mouth [id number] 07/18/201810/2019 at bedtime 30 1 mg capsule 54659 [phone] Carolann Fernandez 3 [id number] Nurse Practitioner [facility] ([facility]) Sertraline 100 MG Oral Tablet sertraline 03/27/2018 12:00:00 AM EST 100 mg completed [id number] sertraline 03/27/2018 05/06/2019 every morning 30 100 mg tablet 47560 [id number] Carolann Fernandez [id number] Psych[facility] ([facility]) Sertraline 100 MG Oral Tablet sertraline 03/27/2018 12:00:00 AM EST 100 mg completed [id number] sertraline 03/27/2018 05/06/2019 every morning 30 100 mg tablet 56715 [id number] [id number] Carolann Fernandez [id number] Psych[facility] ([facility]) Sertraline 100 MG Oral Tablet sertraline 03/27/2018 12:00:00 AM EST 100 mg completed [id number] sertraline 03/27/2018 05/06/2019 every morning 30 100 mg tablet [id number] Carolann Fernandez [id number] Nurse Practitioner Brendan ([facility]) Insurance Providers Payer name Policy type / Coverage type Policy ID Covered alliance party ID Covered alliance party's relationship to mahajan Policy Mahajan Plan Information [facility] [id number] SP [id number] [facility] [id number] SP [id number] [facility] MEDICAID [id number] S [id number] [facility] MEDICAID [id number] S [id number] [facility] O [id number] S [id number] [facility] I [id number] Self [id number] Managed Care - [facility] Community Plan P [id number] S [id number] Medicaid S [id number] S [id number] Managed Care - [facility] Community Plan P [id number] S [id number] Managed Care - [facility] P [id number] S [id number] Medicaid S [id number] S [id number] [facility] MEDICAID [id number] S [id number] [facility] MEDICAID [id number] S [id number] [facility] [id number] [facility]icaid [id number] [facility]-Medicaid [id number] [facility]-Medicaid [id number] [facility]-Medicaid [id number] ANSI-Medicaid [id number] [facility] [id number] SP [id number] [employer] COMMUNITY PLAN MCDHMO [id number] SP [id number] MEDICAID [id number] SP [id number] [facility] [id number] SP [id number] [facility] [id number] SP [id number] Managed Care - [facility] P [id number] S [id number] UH I [id number] Self [id number] [facility] I [id number] Self [id number] [facility] I [id number] Self [id number] [facility] Community Plan Commercial [id number] Self [id number] [facility] Community Plan Commercial [id number] Self [id number] Medicaid S [id number] S [id number] [facility] [id number] S [id number] [employer] COMMUNITY PLAN MCDO [id number] SP [id number] [facility] [id number] SP [id number] [facility] OFFICE OF MENTAL HEALTH [id number] S [id number] [facility] [id number] S [id number] [facility](MCAID) O [id number] S [id number] MEDICAID [id number] S [id number] MEDICAID M [id number] S [id number] [employer] COMMUNITY PLAN MCDO [id number] SP [id number] [employer] COMMUNITY PLAN [facility] [id number] SP [id number] [employer] COMMUNITY PLAN [facility] [id number] SP [id number] MEDICAID [id number] SP [id number] SELF PAY ONLY [id number] SP [id number] [facility] [id number] SP [id number] [facility](MCAID) O [id number] S [id number] [employer] COMMUNITY PLAN [facility] [id number] SP [id number] [facility] [id number] SP [id number] [facility] [id number] SP [id number] [employer] HMO [id number] Problems, Conditions, and Diagnoses Code Display Name Description Problem Type Effective Dates Data Source(s) F25.9 Schizoaffective disorder, unspecified Schizoaffective Disorder Condition 04/07/2020 12:00:00 AM EST [facility] ([facility]) Z72.0 Tobacco use Tobacco Use Disorder, Mild Condition 1 05/04/2019 12:00:00 AM EST [facility] ([facility]) 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, adult Problem 12/20/2019 12:0 0:00 AM EDT eCW1 ([facility]) E66.09 [id number] Class 1 obesity due to excess calories without serious comorbidity in adult, unspecified BMI Problem 12/20/2019 12:00:00 AM EDT eCW1 ([facility]) 521.00 Dental caries Dental caries 10/18/2019 02:29:07 PM EDT [facility] F17.219 [id number] Cigarette nicotine dependence wi th nicotine-induced disorder Problem 09/05/2019 12:00:00 AM EDT eCW1 ([facility]) F17.210 00260810 Cigarette nicotine dependence without com plication Problem 07/22/2019 12:00:00 AM EDT eCW1 ([facility]) F17.210 [id number] Cigarette nicotine dependence without com plication Problem 07/22/2019 12:00:00 AM EDT eCW1 ([facility]) F50.89 [id number] Pica in adults Problem 05/28/2019 12:00:00 A M EDT eCW1 ([facility]) F50.89 41520783 Pica in adults Problem 05/28/2019 12:00:00 A M EDT eCW1 ([facility]) 305.1 Tobacco use Tobacco use 04/08/2019 08:16:00 AM EST [facility] F17.200 90328133 Tobacco dependence Problem 03/29/2019 12:00: 00 AM EST eCW1 ([facility]) F17.200 [id number] Tobacco dependence Problem 03/29/2019 12:00: 00 AM EST eCW1 ([facility]) F25.0 Schizoaffective disorder, bipolar type S CHIZOAFFECTIVE DISORDER, BIPOLAR TYPE Diagnosis 04/07/2020 08:05:00 AM [facility] l Z79.899 Other retirement (current) drug therapy 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 Surgeries/Procedures Procedure Description Date Indications Data Source(s) OFFICE OUTPATIENT VISIT 15 MINUTES 04/07 12:00:00 AM EST - 04/07/2020 12:00:00 AM EST [facility] ([facility]) OFFICE OUTPATIENT VISIT 15 MINUTES 04/07/2020 12:00:00 AM EST [facility] ([facility]) Brief Individual Psychotherapy - 30 min 04/07/2020 12:00:00 AM EST - 04/07/2020 12:00:00 AM EST [facility] ([facility]) Brief Individual Psychotherapy - 30 min 04/06/2020 12: 00:00 AM EST [facility] ([facility]) Brief Individual Psychotherapy - 30 min 03/30/2020 12:00:00 AM EST - 03/30/2020 12:00:00 AM EST [facility] ([facility]) Brief Individual Psychotherapy - 30 min 03/30/2020 12: 00:00 AM EST [facility] ([facility]) OFFICE OUTPATIENT VISIT 15 MINUTES 03/24 12:00:00 AM EST - 03/24/2020 12:00:00 AM EST [facility] ([facility]) OFFICE OUTPATIENT VISIT 15 MINUTES 03/24/2020 12:00:00 AM EST [facility] ([facility]) OFFICE OUTPATIENT VISIT 15 MINUTES 03/10 12:00:00 AM EST - 03/10/2020 12:00:00 AM EST [facility] ([facility]) Psychotherapy ADD ON - 30 Minutes 03/10/2020 12:00:00 AM EST [facility] ([facility]) OFFICE OUTPATIENT VISIT 15 MINUTES 03/10/2020 12:00:00 AM EST [facility] ([facility]) Brief Individual Psychotherapy - 30 min 03/03/2020 12:00:00 AM EST - 03/03/2020 12:00:00 AM EST [facility] ([facility]) Brief Individual Psychotherapy - 30 min 03/03/2020 12: 00:00 AM EST [facility] ([facility]) OFFICE OUTPATIENT VISIT 15 MINUTES 01/26 12:00:00 AM EST - 01/27/2020 12:00:00 AM EST [facility] ([facility]) OFFICE OUTPATIENT VISIT 15 MINUTES 01/27/2020 12:00:00 AM EST [facility] ([facility]) Brief Individual Psychotherapy - 30 min 01/21/2020 12:00:00 AM EST - 01/21/2020 12:00:00 AM EST [facility] ([facility]) Brief Individual Psychotherapy - 30 min 01/21/2020 12: 00:00 AM EST [facility] ([facility]) Comprehensive medication services, per 15 minutes 01/16/2020 12:00:00 AM EDT - 01/16/2020 12:00:00 AM EDT [facility] ([facility]) Comprehensive medication services, per 15 minutes 01/16/2020 12:00:00 AM EDT [facility] ([facility]) Extended Individual Psychotherapy - 45 min 12/30/2019 12:00:00 AM EDT - 12/30/2019 12:00:00 AM EDT [facility] ([facility]) Extended Individual Psychotherapy - 45 min 0 12:00:00 AM EDT [facility] ([facility]) [facility] Telemed E/M Lvl 3--Est pt 12/26/2019 12:00:00 AM EDT - 12/26/2019 12:00:00 AM EDT [facility] ([facility]) [facility] Telemed E/M Lvl 3--Est pt 12/26/2019 12:00:00 AM E DT [facility] ([facility]) uro PVR (Post Voiding Residual) Bladder Scan 0 12:00:00 AM EDT eCW1 ([facility]) THERAPEUTIC PROPHYLACTIC/DX INJECTION SUBQ/IM 12/23/2019 12:00:00 AM EDT - 12/23/2019 12:00:00 AM EDT [facility] ([facility]) THERAPEUTIC PROPHYLACTIC/DX INJECTION SUBQ/IM 12/23/19 20 12:00:00 AM EDT [facility] ([facility]) THERAPEUTIC PROPHYLACTIC/DX INJECTION SUBQ/IM 12/20/2019 12:00:00 AM EDT - 12/20/2019 12:00:00 AM EDT [facility] ([facility]) THERAPEUTIC PROPHYLACTIC/DX INJECTION SUBQ/IM 12/19/19 20 12:00:00 AM EDT [facility] ([facility]) [facility] Telemed E/M Lvl 3--Est pt 11/27/2019 12:00:00 AM EDT - 11/27/2019 12:00:00 AM EDT [facility] ([facility]) Psychotherapy ADD ON - 30 Minutes 11/27/2019 12:00:00 AM EDT [facility] ([facility]) [facility] Telemed E/M Lvl 3--Est pt 11/27/2019 12:00:00 AM E DT [facility] ([facility]) Comprehensive medication services, per 15 minutes 11/21/2019 12:00:00 AM EDT - 11/21/2019 12:00:00 AM EDT [facility] ([facility]) Comprehensive medication services, per 15 minutes 11/21/2019 12:00:00 AM EDT [facility] ([facility]) TEMPMHCTelemed 30" Psychotherapy 020 12:00:00 AM EDT - 09/19/2019 12:00:00 AM EDT [facility] ([facility]) TEMPMHCTelemed 30" Psychotherapy 09/19/2019 12:00:00 A M EDT [facility] ([facility]) MHC Telemed E/M Lvl 3--Est pt 09/09/2019 12:00:00 AM EDT - 09/09/2019 12:00:00 AM EDT [facility] ([facility]) MHC Telemed E/M Lvl 3--Est pt 09/09/2019 12:00:00 AM E DT [facility] ([facility]) Endoscopy Nasal/Sinus W/ Control Of Epistaxis 09/05/19 12:00:00 AM EDT [facility] ([facility] ) TEMPMHCTelemed 30" Psychotherapy 12:00:00 AM EDT - 08/14/2019 12:00:00 AM EDT [facility] ([facility]) TEMPMHCTelemed 30" Psychotherapy 08/14/2019 12:00:00 A M EDT [facility] ([facility]) TEMPMHCTelemed 30" Psychotherapy 12:00:00 AM EDT - 07/30/2019 12:00:00 AM EDT [facility] ([facility]) TEMPMHCTelemed 30" Psychotherapy 07/30/2019 12:00:00 A M EDT [facility] ([facility]) Comprehensive medication services, per 15 minutes 07/30/2019 12:00:00 AM EDT - 07/30/2019 12:00:00 AM EDT [facility] ([facility]) Comprehensive medication services, per 15 minutes 07/29/2019 12:00:00 AM EDT [facility] ([facility]) OFFICE OUTPATIENT VISIT 15 MINUTES 07/22 12:00:00 AM EDT - 07/23/2019 12:00:00 AM EDT [facility] ([facility]) OFFICE OUTPATIENT VISIT 15 MINUTES 07/23/2019 12:00:00 AM EDT [facility] ([facility]) TEMPMHCTelemed 30" Psychotherapy 04/28/2 020 12:00:00 AM EDT - 07/16/2019 12:00:00 AM EDT [facility] ([facility]) TEMPMHCTelemed 30" Psychotherapy 07/16/2019 12:00:00 A M EDT [facility] ([facility]) TEMPMHCTelemed 30" Psychotherapy 020 12:00:00 AM EDT - 07/01/2019 12:00:00 AM EDT [facility] ([facility]) TEMPMHCTelemed 30" Psychotherapy 07/01/2019 12:00:00 A M EDT [facility] ([facility]) Comprehensive medication services, per 15 minutes 07/01/2019 12:00:00 AM EDT - 07/01/2019 12:00:00 AM EDT [facility] ([facility]) Comprehensive medication services, per 15 minutes 07/01/2019 12:00:00 AM EDT [facility] ([facility]) TEMPMHCTelemed 30" Psychotherapy 020 12:00:00 AM EDT - 06/25/2019 12:00:00 AM EDT [facility] ([facility]) TEMPMHCTelemed 30" Psychotherapy 06/25/2019 12:00:00 A M EDT [facility] ([facility]) THERAPEUTIC PROPHYLACTIC/DX INJECTION SUBQ/IM 05/31/2019 12:00:00 AM EDT - 05/31/2019 12:00:00 AM EDT [facility] ([facility]) THERAPEUTIC PROPHYLACTIC/DX INJECTION SUBQ/IM 05/31/19 20 12:00:00 AM EDT [facility] ([facility]) Comprehensive medication services, per 15 minutes 05/29/2019 12:00:00 AM EDT - 05/29/2019 12:00:00 AM EDT [facility] ([facility]) Comprehensive medication services, per 15 minutes 05/29/2019 12:00:00 AM EDT [facility] ([facility]) Brief Individual Psychotherapy - 30 min 05/09/2019 12:00:00 AM EST - 05/09/2019 12:00:00 AM EST [facility] ([facility]) Brief Individual Psychotherapy - 30 min 05/09/2019 12: 00:00 AM EST [facility] ([facility]) Comprehensive medication services, per 15 minutes 05/01/2019 12:00:00 AM EST - 05/01/2019 12:00:00 AM EST [facility] ([facility]) Comprehensive medication services, per 15 minutes 05/01/2019 12:00:00 AM EST [facility] ([facility]) OFFICE OUTPATIENT VISIT 15 MINUTES 04/24 12:00:00 AM EST - 04/24/2019 12:00:00 AM EST [facility] ([facility]) OFFICE OUTPATIENT VISIT 15 MINUTES 04/24/2019 12:00:00 AM EST [facility] ([facility]) Brief Individual Psychotherapy - 30 min 04/11/2019 12:00:00 AM EST - 04/11/2019 12:00:00 AM EST [facility] ([facility]) Brief Individual Psychotherapy - 30 min 04/11/2019 12: 00:00 AM EST [facility] ([facility]) Comprehensive medication services, per 15 minutes 04/03/2019 12:00:00 AM EST - 04/03/2019 12:00:00 AM EST [facility] ([facility]) Comprehensive medication services, per 15 minutes 04/03/2019 12:00:00 AM EST [facility] ([facility]) SMEAR, WET MOUNT, SALINE/INK 04/01/2019 12:00:00 AM ES T eCW1 ([facility]) Extended Individual Psychotherapy - 45 min 03/28/2019 12:00:00 AM EST - 03/28/2019 12:00:00 AM EST [facility] ([facility]) OFFICE OUTPATIENT VISIT 15 MINUTES 03/27 12:00:00 AM EST - 03/27/2019 12:00:00 AM EST [facility] ([facility]) OFFICE OUTPATIENT VISIT 15 MINUTES 03/27/2019 12:00:00 AM EST [facility] ([facility]) Extended Individual Psychotherapy - 45 min 0 12:00:00 AM EST [facility] ([facility]) Extended Individual Psychotherapy - 45 min 03/14/2019 12:00:00 AM EST - 03/14/2019 12:00:00 AM EST [facility] ([facility]) Extended Individual Psychotherapy - 45 min 9 12:00:00 AM EST [facility] ([facility]) Brief Individual Psychotherapy - 30 min 03/01/2019 12:00:00 AM EST - 03/01/2019 12:00:00 AM EST [facility] ([facility]) Brief Individual Psychotherapy - 30 min 03/01/2019 12: 00:00 AM EST [facility] ([facility]) Brief Individual Psychotherapy - 30 min 02/12/2019 12:00:00 AM EST - 02/12/2019 12:00:00 AM EST [facility] ([facility]) Brief Individual Psychotherapy - 30 min 02/12/2019 12: 00:00 AM EST [facility] ([facility]) Results ID Date Data Source [id number] 04/07/2020 08:31:00 AM [facility] FAX Name Value Range Interpretation Code Description Data Ce rce(s) Supporting Document(s) WHITE BLOOD COUNT 6.2 K/mm3 4.0-10.0 [facility] RED BLOOD COUNT 3.81 M/mm3 4.00-5.50 L [facility] l HEMOGLOBIN 11.4 gm/dL 12.0-16.0 L [facility] HEMATOCRIT 34.1 % 36.0-48.8 L [facility] MEAN CELL VOLUME 89.5 fl 80-96 [facility] l MEAN CORPUSCULAR HEMOGLOBIN 29.9 pg 27.0-31.0 [facility] MEAN CORPUSCULAR HGB CONC 33.4 g/dl 32.0-36.0 [facility] RED CELL DISTRIBUTION WIDTH 13.3 % 10.0-14.5 [facility] PLATELET COUNT 270 K/mm3 172-450 [facility] MEAN PLATELET VOLUME 9.4 fl 9.0-13.0 [facility] pital GRAN % 53.2 % 50-80.0 [facility] IG% 0.2 % 0.0-0.2 [facility] LYMPH % 34.8 % 25.0-50.0 [facility] MONO % 9.6 % 2.0-10.0 [facility] EOS % 1.9 % 0-5.0 [facility] BASO % 0.3 % 0.0-2.0 [facility] GRAN # 3.3 K/mm3 2.0-8.00 [facility] IG# 0.0 K/mm3 0.0-0.2 [facility] LYMPH # 2.2 K/mm3 1.0-5.0 [facility] MONO # 0.6 K/mm3 0.10-1.20 [facility] EOS # 0.1 K/mm3 0.0-0.5 [facility] BASO # 0.0 K/mm3 0.0-0.2 [facility] ID Date Data Source [id number] 03/31/2020 08:41:00 AM EST [facility] l FAX Name Value Range Interpretation Code Description Data Ce rce(s) Supporting Document(s) WHITE BLOOD COUNT 5.2 K/mm3 4.0-10.0 [facility] RED BLOOD COUNT 3.80 M/mm3 4.00-5.50 L [facility] l HEMOGLOBIN 11.2 gm/dL 12.0-16.0 L [facility] HEMATOCRIT 34.2 % 36.0-48.8 L [facility] MEAN CELL VOLUME 90.0 fl 80-96 [facility] l MEAN CORPUSCULAR HEMOGLOBIN 29.5 pg 27.0-31.0 [facility] MEAN CORPUSCULAR HGB CONC 32.7 g/dl 32.0-36.0 [facility] RED CELL DISTRIBUTION WIDTH 13.6 % 10.0-14.5 [facility] PLATELET COUNT 252 K/mm3 172-450 [facility] MEAN PLATELET VOLUME 9.0 fl 9.0-13.0 [facility] pital GRAN % 54.5 % 50-80.0 [facility] IG% 0.2 % 0.0-0.2 [facility] LYMPH % 34.9 % 25.0-50.0 [facility] MONO % 7.3 % 2.0-10.0 [facility] EOS % 2.7 % 0-5.0 [facility] BASO % 0.4 % 0.0-2.0 [facility] GRAN # 2.8 K/mm3 2.0-8.00 [facility] IG# 0.0 K/mm3 0.0-0.2 [facility] LYMPH # 1.8 K/mm3 1.0-5.0 [facility] MONO # 0.4 K/mm3 0.10-1.20 [facility] EOS # 0.1 K/mm3 0.0-0.5 [facility] BASO # 0.0 K/mm3 0.0-0.2 [facility] ID Date Data Source [id number] 03/24/2020 09:25:00 AM EST [facility] FAX [phone] Name Value Range Interpretation Code Description Data Ce rce(s) Supporting Document(s) VALPROIC ACID (DEPAKOTE) 70.6 mcg/mL 50.0-100.0 [facility] ID Date Data Source [id number] 03/24/2020 08:36:00 AM [facility] l FAX [phone] Name Value Range Interpretation Code Description Data Ce rce(s) Supporting Document(s) WHITE BLOOD COUNT 5.7 K/mm3 4.0-10.0 [facility] RED BLOOD COUNT 3.61 M/mm3 4.00-5.50 L [facility] l HEMOGLOBIN 10.8 gm/dL 12.0-16.0 L [facility] HEMATOCRIT 32.5 % 36.0-48.8 L [facility] MEAN CELL VOLUME 90.0 fl 80-96 [facility] MEAN CORPUSCULAR HEMOGLOBIN 29.9 pg 27.0-31.0 [facility] MEAN CORPUSCULAR HGB CONC 33.2 g/dl 32.0-36.0 [facility] RED CELL DISTRIBUTION WIDTH 13.3 % 10.0-14.5 [facility] PLATELET COUNT 258 K/mm3 172-450 [facility] MEAN PLATELET VOLUME 8.9 fl 9.0-13.0 L [facility] pital GRAN % 50.0 % 50-80.0 [facility] IG% 0.5 % 0.0-0.2 H [facility] LYMPH % 38.4 % 25.0-50.0 [facility] MONO % 8.1 % 2.0-10.0 [facility] EOS % 2.6 % 0-5.0 [facility] BASO % 0.4 % 0.0-2.0 [facility] GRAN # 2.8 K/mm3 2.0-8.00 [facility] IG# 0.0 K/mm3 0.0-0.2 [facility] LYMPH # 2.2 K/mm3 1.0-5.0 [facility] MONO # 0.5 K/mm3 0.10-1.20 [facility] EOS # 0.2 K/mm3 0.0-0.5 [facility] BASO # 0.0 K/mm3 0.0-0.2 [facility] ID Date Data Source [id number] 03/05/2020 07:29:00 AM [facility] l Patient: EVELIO KUNZ Observation Report - Physicians/Mid Levels [facility].VisitID: [id number] [place] [address] [phone], FRegistration Date/Time: 03/04/2020 21:24 Weight:91.6 kg. Height/Length:64 inches. BMI:34.7 PAST HISTORYProblems:Dental Pain.Anemia.Abdominal Pain.Sleep problem.Schizoaffective Disorder.Depression. Additional Surgeries:Cervical sx. Medications:Depakote Oral 500 mg, daily, last dose 03/04/20am.Amantadine HCl Oral 100 mg, daily, last dose 03/04/20.Cogentin 1mg, 2x a day, last dose 03/04/20pm.Colace [...] rce(s) Supporting Document(s) ID Date Data Source [id number] [id number] 03/04/2020 10:39:00 PM EST [facility] TSYSORDER [id number] Name Value Range Interpretation Code Description Data Ce rce(s) Supporting Document(s) URINE COLOR. YELLOW [facility] URINE APPEARANCE CLEAR [facility] URINE GLUCOSE (UA) NEGATIVE mg/dL NEGATIVE [facility] URINE BILIRUBIN NEGATIVE NEGATIVE [facility] URINE KETONE NEGATIVE mg/dL NEGATIVE [facility] SPECIFIC GRAVITY,URINE >= 1.030 1.001-1.035 [facility] URINE BLOOD TRACE NEGATIVE [facility] PH,URINE 7.0 5.0-9.0 [facility] URINE PROTEIN 1+(30) mg/dL NEGATIVE [facility] URINE UROBILINOGEN NORMAL(0.2-1) mg/dL 0-1 [facility] URINE NITRATE NEGATIVE NEGATIVE [facility] URINE LEUKOCYTE ESTERASE NEGATIVE NEGATIVE [facility] ID Date Data Source [id number] REFLEX 03/04/2020 10:48:00 PM [facility] spital TSYSORDER [id number] Name Value Range Interpretation Code Description Data Ce rce(s) Supporting Document(s) URINE RBC 3-5 /hpf 0-3 H [facility] URINE WBC 1-3 /hpf 0-5 [facility] URINE EPITHELIAL CELLS 1+ /hpf 0 [facility] ospital URINE BACTERIA 1+ NONE SEEN [facility] URINE MUCUS 2+ NEGATIVE [facility] ID Date Data Source [id number] 03/06/2020 08:09:00 AM [facility] Name Value Range Interpretation Code Description Data Ce rce(s) Supporting Document(s) HEP A AB, IGM Negative Negative [facility] HEP B SURFACE ANTIGEN SCREEN Negative Negative [facility] HEP B CORE AB, IGM Negative Negative [facility] mando HCV ANTIBODY <0.1 0.0-0.9 [facility] INFCE Result Units: s/co ratio Negative: < 0.8 Indeterminate: 0.8 - 0.9 Positive: > 0.9 The CDC recommends that a positive HCV antibody result be followed up with a HCV Nucleic Acid Amplification test (018618).Performed at: RN - [facility] [address] [id number] Director: Vero Austin MD, Phone: [phone] ID Date Data Source [id number] 03/06/2020 08:06:00 AM EST [facility] Name Value [...] with a HCV Nucleic Acid Amplification test ([id number]). ID Date Data Source [id number] 03/04/2020 10:07:00 PM [facility] [facility] TSYSORDER [id number] Name Value Range Interpretation Code Description Data Ce rce(s) Supporting Document(s) HIV 1/2 AB NON-REACTIVE [facility] HIV AG NON-REACTIVE [facility] ID Date Data Source [id number] 03/04/2020 10:35:00 PM [facility] l TSYSORDER [id number] Name Value Range Interpretation Code Description Data Ce rce(s) Supporting Document(s) PARTIAL THROMBOPLASTIN TIME 25.8 SECONDS 21.2-27.3 [facility] ID Date Data Source [id number] 03/04/2020 10:35:00 PM [facility] l TSYSORDER [id number] Name Value Range Interpretation Code Description Data Ce rce(s) Supporting Document(s) PROTHROMBIN TIME (PATIENT) 10.2 SECONDS 9.1-11.6 [facility] INR 0.98 0.87-1.06 [facility] ID Date Data Source [id number] 03/04/2020 10:33:00 PM [facility] TSYSORDER [id number] Name Value Range Interpretation Code Description Data Ce rce(s) Supporting Document(s) MAGNESIUM 1.9 mg/dL 1.8-2.4 [facility] ID Date Data Source [id number] 03/04/2020 10:33:00 PM [facility] TSYSORDER [id number] Name Value Range Interpretation Code Description Data Ce rce(s) Supporting Document(s) LIPASE 32 U/L 73-[address] [facility] ID Date Data Source [id number] 03/04/2020 10:33:00 PM [facility] TSYSORDER [id number] Name Value Range Interpretation Code Description Data Ce rce(s) Supporting Document(s) GLUCOSE 89 mg/dL 74-106 [facility] BLOOD UREA NITROGEN 9 mg/dL 7-18 [facility] CREATININE 0.8 mg/dL 0.6-1.0 [facility] SODIUM 140 mmol/L 136-145 [facility] POTASSIUM 4.2 mmol/L 3.5-5.1 [facility] CHLORIDE 102 mmol/L 98-107 [facility] CO2 31 mmol/L 21-32 [facility] CALCIUM 9.1 mg/dL 8.5-10.1 [facility] ANION GAP 7.0 mmol/L 5-12 [facility] GLOMERULAR FILTRATION RATE 85 mL/min [facility] GFR IS CALCULATED IN mL/min/1.73m2 KENYA L FUNCTION: >90MILDLY DECREASED: 60-89MILDY TO MODERATELY DECREASED: 45-59 MODERATELY TO SEVERELY DECREASED: 30-44SEVERELY DECREASED: 15-29RENAL FAILURE: <15 AST 22 U/L 15-37 [facility] ALT 40 U/L 12-78 [facility] ALKALINE PHOSPHATASE 39 U/L 46-116 L [facility] pital TOTAL BILIRUBIN 0.2 mg/dL 0.2-1.0 [facility] TOTAL PROTEIN 7.3 g/dl 6.4-8.2 [facility] ALBUMIN 3.5 gm/dL 3.4-5.0 [facility] ID Date Data Source [id number] 03/04/2020 10:28:00 PM [facility] al TSYSORDER [id number] Name Value Range Interpretation Code Description [facility] Document(s) HCG,SERUM NEGATIVE NEGATIVE [facility] False negative results may occur when th e levels of hCG arebelow the sensitivity level of the test. If isstill suspected, a first morning urine specimen should becollected 48hrs later.This test has a sensitivity of 10mIU/mL in serum ihn77wFC/mL in urine. ID Date Data Source [id number] 03/04/2020 10:13:00 PM [facility] l TSYSORDER [id number] Name Value Range Interpretation Code Description Data Ce rce(s) Supporting Document(s) WHITE BLOOD COUNT 8.3 K/mm3 4.0-10.0 [facility] al RED BLOOD COUNT 3.48 M/mm3 4.00-5.50 [facility] l HEMOGLOBIN 10.5 gm/dL 12.0-16.0 L [facility] HEMATOCRIT 31.7 % 36.0-48.8 L [facility] MEAN CELL VOLUME 91.1 fl 80-96 [facility] l MEAN CORPUSCULAR HEMOGLOBIN 30.2 pg 27.0-31.0 [facility] MEAN CORPUSCULAR HGB CONC 33.1 g/dl 32.0-36.0 [facility] RED CELL DISTRIBUTION WIDTH 13.3 % 10.0-14.5 [facility] PLATELET COUNT 285 K/mm3 172-450 [facility] MEAN PLATELET VOLUME 9.3 fl 9.0-13.0 [facility] pital GRAN % 52.0 % 50-80.0 [facility] IG% 0.2 % 0.0-0.2 [facility] LYMPH % 37.0 % 25.0-50.0 [facility] MONO % 8.8 % 2.0-10.0 [facility] EOS % 1.8 % 0-5.0 [facility] BASO % 0.2 % 0.0-2.0 [facility] GRAN # 4.3 K/mm3 2.0-8.00 [facility] IG# 0.0 K/mm3 0.0-0.2 [facility] LYMPH # 3.1 K/mm3 1.0-5.0 [facility] MONO # 0.7 K/mm3 0.10-1.20 [facility] EOS # 0.2 K/mm3 0.0-0.5 [facility] BASO # 0.0 K/mm3 0.0-0.2 [facility] ID Date Data Source Test, Urine 01/24/2020 03:46:42 AM EST eCW1 ([facility]) Name Value Range Interpretation Code Description Data Ce rce(s) Supporting Document(s) yes Internal QC Acceptable (Y/N) e CW1 ([facility]) Choriogonadotropin.beta subunit ( test) [Presence] in Urin e neg Test, Urine eCW1 ([facility]) ID Date Data Source URINE CULTURE 12/25/2019 12:00:00 AM EDT eCW1 ([facility]) Name Value Range Interpretation Code Description Data Ce rce(s) Supporting Document(s) URINE CULTURE eCW1 ([facility]) ID Date Data Source UA URINALYSIS 12/25/2019 12:00:00 AM EDT eCW1 ([facility]) Name Value Range Interpretation Code Description Data Ce rce(s) Supporting Document(s) UA URINALYSIS eCW1 ([facility]) ID Date Data Source [id number] 10/18/2019 12:27:38 PM EDT [facility] Current Problems: Dental caries (ICD-521 .00) (ANF50-K96.9)Tobacco use (ICD- 305.1) (VWP59-B40.0)Dental caries (ICD-521.00) (PBK02-T74.9)DENTAL CARIES EXTENDING INTO PULP (ICD-521.03) (UGT70-X56.63)Physical exam (ICD-V70.0) (ICD10- Z00.00)BMI 32.0-32.9 (ICD-V85.32) (PTV97-R22.32)Obesity (ICD-278.00) (ICD10- E66.09)Normocytic anemia (ICD-285.9) (WNV27-I52.89)Other seizures (ICD10- G40.89)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)Dental caries (ICD-521.00) (RJD02-G94.9)Nicotine dependence, cigarettes, in remission (MJE77-G50.211)Moderate cervical dysplasia (XFY50-Z86.1)Genital w arts (ICD-078.11) (WSQ84-R06.0)Other hyperlipidemia (GTW54-U75.4)Bipolar 1 disorder (ICD-296.7) (UML12-F77.9)Anxiety disorder (ICD-300.00) (ICD10- F41.9)Current Medications: * TRAZADONE [...] filling for asthetics only.Miesha Nassar DDS by amodng (01/15/2019 10:26 AM): Assessment & Plan Problems:Added: Dental caries (ICD- 521.00) (DYI48-Z65.9) Name Value Range Interpretation Code Description Data Ce rce(s) Supporting Document(s) ID Date Data Source [id number] 10/08/2019 12:30:02 PM EDT [facility] Patient History Medical History:bipolar with schizophrenia - activedepressionanxietySurgical History:cervical biopsy Family History:Diabetes (Mother, Maternal Grandmother)Hypertension (Mother, Maternal Grandmother)Mother has graves disease diagnosed 04/2016Mother had arthritisSocial/Personal History: Smoking Status: current every day smokerDo you vape? NoCurrent Problems: Tobacco use (ICD-305.1) (UFU07-A16.0)Dental caries (ICD-521.00) (ICD10- K02.9)DENTAL CARIES EXTENDING INTO PULP (ICD-521.03) (LOK62-K94.63)Physical exam (ICD-V70.0) (UCZ92-V10.00)BMI 32.0-32.9 (ICD-V85.32) (ZJV63-J77.32)Obesity (ICD -278.00) (ZCI96-S28.09)Normocytic anemia (ICD-285.9) (KCY56-L27.89)Other seizures (ZUX77-E94.89)Other thyrotoxicosis without thyrotoxic crisis or storm (HXO51-R65.80)Dental caries (ICD-521.00) (YIF86-K35.9)Nicotine dependence, cigarettes, in remission (TAE12-J70.211)Moderate cervical dysplasia (ICD10- N87.1)Genital warts (ICD-078.11) (ANG57-Z38.0)Other hyperlipidemia (ICD10- E78.4)Bipolar 1 disorder (ICD-296.7) (IPD76-M17.9)Anxiety disorder (ICD-300.00) (FDC04-Q15.9)Problem list reviewed during this update.Current Medications: * [...] (Performed by Lissa Roberto RDH) B - (D0120) Periodic oral evaluation [...] PM): ; nicole (Oct 08 2019 1:38PM): PENDING SALE TO [facility](-). CC: none. Reviewed Xrays. Exam: rampant caries [...] Assessment not SavedDENTAL CARIES EXTENDING INTO PULP (XCT64-X59.63): Medications:TRAZADONESERTALINEDRISCOLAMANADINEPRAZOSINBENZATROPINECOLACE 100 MG ORAL CAPSULEDOCU SOFT 100 MG ORAL CAPSULEFOLIC ACID 1 MG ORAL TABLETHALOPERIDOL 10 MG ORAL TABLETFE TABS 325 (65 FE) MG ORAL TABLET DELAYED RELEASEFOLIC ACID TABLETRISPERDAL CONSTA 50 MG INTRAMUSCULAR SUSPENSION RECONSTITUTEDAllergies:PENICILLIN (Severe)Orders:Oral Surgery Referral [CPT- 05944] Clinical Visit Summary Declined Name Value Range Interpretation Code Description Data Ce rce(s) Supporting Document(s) ID Date Data Source [id number] 09/02/2019 12:00:00 AM EDT [facility] Name Value Range Interpretation Code Description Data Ce rce(s) Supporting Document(s) SARS CORONAVIRUS 2 RNA [facility] This lab was ordered by [facility] and reported by [facility]. ID Date Data Source [id number] 04/16/2019 12:22:38 PM [facility] Current Problems: Tobacco use (ICD-305.1 ) (KSI33-Q46.0)Dental caries (ICD- 521.00) (GZO64-G63.9)DENTAL CARIES EXTENDING INTO PULP (ICD-521.03) (ICD10- K02.63)Physical exam (ICD-V70.0) (VZY61-D61.00)BMI 32.0-32.9 (ICD-V85.32) (ERA39-B66.32)Obesity (ICD-278.00) (LKV68-T39.09)Normocytic anemia (ICD-285.9) (KQW97-M40.89)Other seizures (SDO51-U70.89)Other thyrotoxicosis without thyrotoxic crisis or storm (WEI36-Y33.80)Dental caries (ICD-521.00) (ICD10- K02.9)Nicotine dependence, cigarettes, in remission (XKQ59-D37.211)Moderate cervical dysplasia (DNH44-O81.1)Genital warts (ICD-078.11) (ICV33-F12.0)Other h yperlipidemia (ATJ01-I98.4)Bipolar 1 disorder (ICD-296.7) (XEQ96-R23.9)Anxiety disorder (ICD-300.00) (LYU59-P51.9)Current Medications: * TRAZADONE * SERTALINE * DRISCOL [...] on Tooth Surface B (Performed by Miesha Nassar DDS) Chart Notes:nicole (Apr 16 2019 1:50PM): PENDING SALE TO [facility] (-)per pt. CC: none. HurriCaine (Watermelon) Topical, UA infiltration 2 carp. Septocaine (Articaine HCL 4%) X 1:200.000 epi. Operative: #12-F, 11-MFDL BrushandBond on #11-F, light-cured, etch, FuturaBond, light-cured A-3 GrandiOso, light-cured. Excavated with High Speed, Slow Speed and Spoon. Occlusion checked and polished.No complications. POI given. Assisted by:AM. Pt was cooperative. NV: [employer]. Miesha Nassar DDS by nicole (04/16/2019 1:50 [...] rce(s) Supporting Document(s) ID Date Data Source [id number] 04/08/2019 07:24:10 AM [facility] Patient History Social/Personal History: Smoking Status: current every day smokerAdvised to Quit/Tobacco Education: YesCurrent Problems: Tobacco use (ICD- 305.1) (XXN98-B11.0)Dental caries (ICD-521.00) (YDY40-E67.9)DENTAL CARIES EXTENDING INTO PULP (ICD-521.03) (TVR79-H72.63)Physical exam (ICD-V70.0) (ICD10- Z00.00)BMI 32.0-32.9 (ICD-V85.32) (EZV01-R95.32)Obesity (ICD-278.00) (ICD10- E66.09)Normocytic anemia (ICD-285.9) (STX19-D70.89)Other seizures (ICD10- G40.89)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 CC: none.Pt. reported she attempted to remove [...] & Plan Problems:Added: Tobacco use (ICD- 305.1) (YAF98-B17.0)Medications:TRA ZADONESERTALINEDRISCOLAMANADINEPRAZOSINBENZATROPINECOLACE 100 MG ORAL CAPSULEDOCU SOFT 100 MG ORAL CAPSULEFOLIC ACID 1 MG ORAL TABLETHALOPERIDOL 10 MG ORAL TABLETFE TABS 325 (65 FE) MG ORAL TABLET DELAYED RELEASEFOLIC ACID TABLETRISPERDAL CONSTA 50 MG INTRAMUSCULAR SUSPENSION RECONSTITUTEDMedication Changes:Added: * BENZATROPINE* PRAZOSIN* AMANADINE* DRISCOL* SERTALINE* TRAZADONEAllergies:PENICILLIN (Severe)Orders:Oral Surgery Referral [CPT-[id number]] Clinical Visit Summary DeclinedSmoking, Tobacco or Smoke Exposure StatusSmoke Status: current every day smokerTobacco Use: YesAdv to Quit: YesClinical List ReviewProblem ReviewProblem List was reviewed and/or updated during this visit.Medication Reconciliation & ReviewMedication List was reviewed and/or updated during this visit, including review of any avys-vvb-bphmylv medications, herbal therapies, and/or supplements.Allergy ReviewAllergy List was reviewed and/or updated during this visit. Name Value Range Interpretation Code Description Data Ce rce(s) Supporting Document(s) ID Date Data Source CHGCTV - CHLAMYDIA, GC & TRICH AMP (Microbiology) 04/01/2019 12:00:00 AM EST eCW1 ([facility]) Name Value Range Interpretation Code Description Data Ce rce(s) Supporting Document(s) NOT DETECTED NEGATIVE Trichomonas vaginalis ( AMP) eCW1 ([facility]) Procedure Social History Code Duration Value Status Description Data Source(s ) Smoking 04/07/2020 12:00:00 AM EST Unknown if ever smoked comp leted Unknown if ever smoked [facility] ([facility]) Smoking 03/30/2020 12:00:00 AM EST Unknown if ever smoked comp leted Unknown if ever smoked [facility] ([facility]) Smoking 03/24/2020 12:00:00 AM EST Unknown if ever smoked comp leted Unknown if ever smoked [facility] ([facility]) Smoking 03/10/2020 12:00:00 AM EST Unknown if ever smoked comp leted Unknown if ever smoked [facility] ([facility]) Smoking 03/03/2020 12:00:00 AM EST Unknown if ever smoked comp leted Unknown if ever smoked [facility] ([facility]) Smoking 02/21/2020 12:00:00 AM EST Current Smoker completed Curre nt Smoker eCW1 ([facility]) Smoking 01/29/2020 12:00:00 AM EST Current Smoker completed Curre nt Smoker eCW1 ([facility]) Smoking 01/27/2020 12:00:00 AM EST Unknown if ever smoked comp leted Unknown if ever smoked [facility] ([facility]) Smoking 01/24/2020 12:00:00 AM EST Current Smoker completed Curre nt Smoker eCW1 ([facility]) Smoking 01/21/2020 12:00:00 AM EST Unknown if ever smoked comp leted Unknown if ever smoked [facility] ([facility]) Smoking 01/16/2020 12:00:00 AM EDT Unknown if ever smoked comp leted Unknown if ever smoked [facility] ([facility]) Smoking 12/30/2019 12:00:00 AM EDT Unknown if ever smoked comp leted Unknown if ever smoked [facility] ([facility]) Smoking 12/26/2019 12:00:00 AM EDT Unknown if ever smoked comp leted Unknown if ever smoked [facility] ([facility]) Smoking 12/25/2019 12:00:00 AM EDT Current Smoker completed Curre nt Smoker eCW1 ([facility]) Smoking 12/25/2019 12:00:00 AM EDT Current Smoker completed Curre nt Smoker eCW1 ([facility]) Smoking 12/23/2019 12:00:00 AM EDT Unknown if ever smoked comp leted Unknown if ever smoked [facility] ([facility]) Smoking 12/20/2019 12:00:00 AM EDT Unknown if ever smoked comp leted Unknown if ever smoked [facility] ([facility]) Smoking 11/27/2019 12:00:00 AM EDT Unknown if ever smoked comp leted Unknown if ever smoked [facility] ([facility]) Smoking 11/21/2019 12:00:00 AM EDT Unknown if ever smoked comp leted Unknown if ever smoked [facility] ([facility]) Smoking 09/19/2019 12:00:00 AM EDT Unknown if ever smoked comp leted Unknown if ever smoked [facility] ([facility]) Smoking 09/09/2019 12:00:00 AM EDT Unknown if ever smoked comp leted Unknown if ever smoked [facility] ([facility]) Smoking 09/04/2019 12:00:00 AM EDT Current Smoker completed Curre nt Smoker eCW1 ([facility]) Smoking 09/04/2019 12:00:00 AM EDT Current Smoker completed Curre nt Smoker eCW1 ([facility]) Smoking 09/04/2019 12:00:00 AM EDT Current Smoker completed Curre nt Smoker eCW1 ([facility]) Smoking 09/04/2019 12:00:00 AM EDT Current Smoker completed Curre nt Smoker eCW1 ([facility]) Smoking 09/04/2019 12:00:00 AM EDT Current Smoker completed Curre nt Smoker eCW1 ([facility]) Smoking 08/14/2019 12:00:00 AM EDT Unknown if ever smoked comp leted Unknown if ever smoked [facility] ([facility]) Smoking 07/30/2019 12:00:00 AM EDT Unknown if ever smoked comp leted Unknown if ever smoked [facility] ([facility]) Smoking 07/23/2019 12:00:00 AM EDT Unknown if ever smoked comp leted Unknown if ever smoked [facility] ([facility]) Smoking 07/22/2019 12:00:00 AM EDT Current Smoker completed Curre nt Smoker eCW1 ([facility]) Smoking 07/16/2019 12:00:00 AM EDT Unknown if ever smoked comp leted Unknown if ever smoked [facility] Smoking 07/01/2019 12:00:00 AM EDT Unknown if ever smoked comp leted Unknown if ever smoked [facility] ([facility]) Smoking 06/25/2019 12:00:00 AM EDT Unknown if ever smoked comp leted Unknown if ever smoked [facility] ([facility]) Smoking 05/31/2019 12:00:00 AM EDT Unknown if ever smoked comp leted Unknown if ever smoked [facility] ([facility]) Smoking 05/29/2019 12:00:00 AM EDT Unknown if ever smoked comp leted Unknown if ever smoked [facility] ([facility]) Smoking 05/09/2019 12:00:00 AM EST Unknown if ever smoked comp leted Unknown if ever smoked [facility] ([facility]) Smoking 05/01/2019 12:00:00 AM EST Unknown if ever smoked comp leted Unknown if ever smoked [facility] ([facility]) Smoking 04/24/2019 12:00:00 AM EST Unknown if ever smoked comp leted Unknown if ever smoked [facility] ([facility]) Smoking 04/11/2019 12:00:00 AM EST Unknown if ever smoked comp leted Unknown if ever smoked [facility] ([facility]) Smoking 04/03/2019 12:00:00 AM EST Unknown if ever smoked comp leted Unknown if ever smoked [facility] ([facility]) Smoking 03/28/2019 12:00:00 AM EST Unknown if ever smoked comp leted Unknown if ever smoked [facility] ([facility]) Smoking 03/27/2019 12:00:00 AM EST Unknown if ever smoked comp leted Unknown if ever smoked [facility] ([facility]) Smoking 03/14/2019 12:00:00 AM EST Unknown if ever smoked comp leted Unknown if ever smoked [facility] ([facility]) Smoking 03/01/2019 12:00:00 AM EST Unknown if ever smoked comp leted Unknown if ever smoked [facility] ([facility]) Smoking 02/12/2019 12:00:00 AM EST Unknown if ever smoked comp leted Unknown if ever smoked [facility] ([facility]) Vital Signs ID Date Data Source UNK Name Value Range Interpretation Code Description Data Source(s) Diastolic blood pressure 0 mm[Hg] Normal (applies to non-numeric results) 0 mm[Hg] [facility] ([facility]) Systolic blood pressure 0 mm[Hg] Normal (applies t o non-numeric results) 0 mm[Hg] [facility] ([facility]) Body mass index (BMI) [Ratio] 0.00 kg/m2 No rmal (applies to non-numeric results) 0.00 kg/m2 [facility] ([facility]) Body weight Measured 0.00 lbs Normal (applies to n on-numeric results) 0.00 lbs [facility] ([facility]) Body height 0.00 in Normal (applies to non-numeric resu lts) 0.00 in [facility] ([facility]) Diastolic blood pressure 0 mm[Hg] Normal (applies to non-numeric results) 0 mm[Hg] [facility] Systolic blood pressure 0 mm[Hg] Normal (applies t o non-numeric results) 0 mm[Hg] [facility] ([facility]) Body mass index (BMI) [Ratio] 0.00 kg/m2 No rmal (applies to non-numeric results) 0.00 kg/m2 [facility] ([facility]) Body weight Measured 0.00 lbs Normal (applies to n on-numeric results) 0.00 lbs [facility] ([facility]) Body height 0.00 in Normal (applies to non-numeric resu lts) 0.00 in [facility] ([facility]) Diastolic blood pressure 0 mm[Hg] Normal (applies to non-numeric results) 0 mm[Hg] [facility] ([facility]) Systolic blood pressure 0 mm[Hg] Normal (applies t o non-numeric results) 0 mm[Hg] [facility] ([facility]) Body mass index (BMI) [Ratio] 0.00 kg/m2 No rmal (applies to non-numeric results) 0.00 kg/m2 [facility] ([facility]) Body weight Measured 0.00 lbs Normal (applies to n on-numeric results) 0.00 lbs [facility] ([facility]) Body height 0.00 in Normal (applies to non-numeric resu lts) 0.00 in [facility] ([facility]) Diastolic blood pressure 62 mm[Hg] 62 mm[Hg] eCW1 ([facility]) Systolic blood pressure 102 mm[Hg] 102 mm[Hg] e CW1 ([facility]) Body mass index (BMI) [Ratio] 35.36 kg/m2 35.36 kg/m2 eCW1 ([facility]) Body height 64 [in_i] 64 [in_i] eCW1 ([facility]) Body weight 93.44 kg 93.44 kg eCW1 ([facility]) Body weight 206 [lb_av] 206 [lb_av] eCW1 ([facility]) Systolic blood pressure 0 mm[Hg] Normal (applies t o non-numeric results) 0 mm[Hg] [facility] ([facility]) Body mass index (BMI) [Ratio] 0.00 kg/m2 No rmal (applies to non-numeric results) 0.00 kg/m2 [facility] ([facility]) Body weight Measured 0.00 lbs Normal (applies to n on-numeric results) 0.00 lbs [facility] ([facility]) Body height 0.00 in Normal (applies to non-numeric resu lts) [facility] Diastolic blood pressure 0 mm[Hg] Normal (applies to non-numeric results) 0 mm[Hg] [facility] ([facility]) Diastolic blood pressure mm[Hg] eCW1 ([facility]) Systolic blood pressure 115 mm[Hg] 115 mm[Hg] e CW1 ([facility]) Body temperature 97.4 [degF] 97.4 [degF] eCW1 ( [facility]) Respiratory rate 18 /min 18 /min eCW1 ([facility]) Heart rate 99 /min 99 /min eCW1 ([facility]) Body mass index (BMI) [Ratio] 35.08 kg/m2 35.08 kg/m2 eCW1 ([facility]) Body height 64 [in_i] 64 [in_i] eCW1 ([facility]) Body weight 204.4 [lb_av] 204.4 [lb_av] eCW1 [facility] Diastolic blood pressure 60 mm[Hg] 60 mm[Hg] eCW1 ([facility]) Systolic blood pressure 110 mm[Hg] 110 mm[Hg] e CW1 ([facility]) Body temperature 97.6 [degF] 97.6 [degF] eCW1 ( [facility]) Respiratory rate 18 /min 18 /min eCW1 ([facility]) Heart rate 80 /min 80 /min eCW1 ([facility]) Body mass index (BMI) [Ratio] 35.36 kg/m2 35.36 kg/m2 eCW1 ([facility] [facility]) Body height 64 [in_i] 64 [in_i] eCW1 ([facility]) Body weight 206 [lb_av] 206 [lb_av] eCW1 ([facility]) Diastolic blood pressure 0 mm[Hg] Normal (applies to non-numeric results) 0 mm[Hg] [facility] ([facility]) Systolic blood pressure 0 mm[Hg] Normal (applies t o non-numeric results) 0 mm[Hg] [facility] ([facility]) Body mass index (BMI) [Ratio] 0.00 kg/m2 No rmal (applies to non-numeric results) 0.00 kg/m2 [facility] ([facility]) Body weight Measured 0.00 lbs Normal (applies to n on-numeric results) 0.00 lbs [facility] ([facility]) Body height 0.00 in Normal (applies to non-numeric resu lts) 0.00 in [facility] ([facility]) Body weight 89.813 kg 89.813 kg [facility] ([facility]) Body mass index (BMI) [Ratio] 34.0 kg/m2 34.0 k g/m2 [facility] Body weight 198.00 [lb_av] 198.00 [lb_av] MEDEN T ([facility]) Body height 64 [in_i] 64 [in_i] [facility] ([facility]) 5'4" Diastolic blood pressure 0 mm[Hg] Normal (applies to non-numeric results) 0 mm[Hg] [facility] ([facility]) Systolic blood pressure 0 mm[Hg] Normal (applies t o non-numeric results) 0 mm[Hg] [facility] ([facility]) Body mass index (BMI) [Ratio] 0.00 kg/m2 No rmal (applies to non-numeric results) 0.00 kg/m2 [facility] Body weight Measured 0.00 lbs Normal (applies to n on-numeric results) 0.00 lbs [facility] ([facility]) Body height 0.00 in Normal (applies to non-numeric resu lts) 0.00 in [facility] ([facility]) Diastolic blood pressure 68 mm[Hg] 68 mm[Hg] eCW1 ([facility]) Systolic blood pressure 122 mm[Hg] 122 mm[Hg] e CW1 ([facility]) Body temperature 98.1 [degF] 98.1 [degF] eCW1 ( [facility]) Respiratory rate 18 /min 18 /min eCW1 ([facility]) Heart rate 88 /min 88 /min eCW1 ([facility]) Body mass index (BMI) [Ratio] 33.74 kg/m2 33.74 kg/m2 eCW1 ([facility]) Body height 64 [in_i] 64 [in_i] eCW1 ([facility]) Body weight 196.6 [lb_av] 196.6 [lb_av] eCW1 ([facility]) Body weight 89.813 kg 89.813 kg [facility] ([facility]) Body mass index (BMI) [Ratio] 34.0 kg/m2 34.0 k g/m2 [facility] ([facility]) Body weight 198.00 [lb_av] 198.00 [lb_av] MEDEN T ([facility]) Body height 64 [in_i] 64 [in_i] [facility] ([facility]) 5'4" Diastolic blood pressure 0 mm[Hg] Normal (applies to non-numeric results) 0 mm[Hg] [facility]) Systolic blood pressure 0 mm[Hg] Normal (applies t o non-numeric results) 0 mm[Hg] [facility] ([facility]) Body mass index (BMI) [Ratio] 0.00 kg/m2 No rmal (applies to non-numeric results) 0.00 kg/m2 [facility] Body weight Measured 0.00 lbs Normal (applies to n on-numeric results) 0.00 lbs [facility] ([facility]) Body height 0.00 in Normal (applies to non-numeric resu lts) 0.00 in [facility] ([facility]) Diastolic blood pressure 80 mm[Hg] 80 mm[Hg] eCW1 ([facility]) Systolic blood pressure 122 mm[Hg] 122 mm[Hg] e CW1 ([facility]) Body temperature 99 [degF] 99 [degF] eCW1 ([facility]) Respiratory rate 20 /min 20 /min eCW1 ([facility]) Heart rate 100 /min 100 /min eCW1 ([facility]) Body mass index (BMI) [Ratio] 33.85 kg/m2 33.85 kg/m2 eCW1 ([facility]) Body height 64 [in_i] 64 [in_i] eCW1 ([facility]) Body weight 197.2 [lb_av] 197.2 [lb_av] eCW1 ([facility]) Diastolic blood pressure 74 mm[Hg] 74 mm[Hg] eCW1 ([facility]) Systolic blood pressure 120 mm[Hg] 120 mm[Hg] e CW1 ([facility]) Body temperature 98.3 [degF] 98.3 [degF] eCW1 ( [facility]) Respiratory rate 20 /min 20 /min eCW1 ([facility]) Heart rate 94 /min 94 /min eCW1 ([facility]) Body mass index (BMI) [Ratio] 34.02 kg/m2 34.02 kg/m2 eCW1 ([facility]) Body height 64 [in_us] 64 [in_us] eCW1 ([facility]) Body weight Measured 198.2 [lb_av] 198.2 [lb_av ] eCW1 ([facility]) Diastolic blood pressure 76 mm[Hg] 76 mm[Hg] eCW1 ([facility]) Systolic blood pressure 120 mm[Hg] 120 mm[Hg] e CW1 ([facility]) Body mass index (BMI) [Ratio] 33.12 kg/m2 33.12 kg/m2 eCW1 ([facility]) Body height 64 [in_us] 64 [in_us] eCW1 ([facility]) Body weight Measured 193 [lb_av] 193 [lb_av] eC W1 ([facility]) Diastolic blood pressure 70 mm[Hg] 70 mm[Hg] eCW1 ([facility]) Systolic blood pressure 120 mm[Hg] 120 mm[Hg] e CW1 ([facility]) Body temperature 97.3 [degF] 97.3 [degF] eCW1 ( [facility]) Respiratory rate 20 /min 20 /min eCW1 ([facility]) Heart rate 88 /min 88 /min eCW1 ([facility]) Body mass index (BMI) [Ratio] 32.78 kg/m2 32.78 kg/m2 eCW1 ([facility]) Body height 64 [in_us] 64 [in_us] eCW1 ([facility]) Body weight Measured 191 [lb_av] 191 [lb_av] eC W1 ([facility]) Diastolic blood pressure 0 mm[Hg] Normal (applies to non-numeric results) 0 mm[Hg] [facility] ([facility]) Systolic blood pressure 0 mm[Hg] Normal (applies t o non-numeric results) 0 mm[Hg] [facility] ([facility]) Body mass index (BMI) [Ratio] 0.00 kg/m2 No rmal (applies to non-numeric results) 0.00 kg/m2 [facility] ([facility]) Body weight Measured 0.00 lbs Normal (applies to n on-numeric results) 0.00 lbs [facility] ([facility]) Body height 0.00 in Normal (applies to non-numeric resu lts) 0.00 in [facility] ([facility]) ID Date Data Source [id number] 01/31/2020 11:26:20 PM [facility] Name Value Range Interpretation Code Description Data Source(s) TRANSFER FROM [facility] Patient Treatment Plan of Care Planned Activity Planned Date Details Description Data Source (s) Cholecalciferol 1000 UNT Oral Tablet 08/21/2019 12:00:00 AM EDT eCW1 ([facility]) Cholecalciferol 1000 UNT Oral Tablet 08/21/2019 12:00:00 AM EDT eCW1 ([facility]) Cholecalciferol 1000 UNT Oral Tablet 08/21/2019 12:00:00 AM EDT eCW1 ([facility]) Cholecalciferol 1000 UNT Oral Tablet 08/21/2019 12:00:00 AM EDT eCW1 ([facility]) Fluconazole 150 MG Oral Tablet 05/13/2019 12:00:00 AM EST eCW1 ([facility]) Fluconazole 150 MG Oral Tablet 04/01/2019 12:00:00 AM EST eCW1 ([facility]) Clotrimazole 10 MG/ML Topical Cream 04/01/2019 12:00:00 AM EST eCW1 ([facility]) Nicotine 4 MG/ACTUAT Inhalant Solution [Nicotrol] 03/29/2019 12: 00:00 AM EST eCW1 ([facility])
[2020-04-09 13:28] LABS: AMPHETAMINES LEVEL URINE NEGATIVE (NEGATIVE); BARBITURATES URINE NEGATIVE (NEGATIVE); BENZODIAZEPINES URINE NEGATIVE (NEGATIVE); CANNABINOIDS URINE NEGATIVE (NEGATIVE); COCAINE METABOLITE URINE NEGATIVE (NEGATIVE); METHADONE URINE NEGATIVE (NEGATIVE); OPIATES URINE NEGATIVE (NEGATIVE); PHENCYCLIDINE URINE NEGATIVE (NEGATIVE)
[2020-04-09 13:40] LABS: ACETAMINOPHEN LEVEL < 2.0 UG/ML (10.0-30.0); ALBUMIN 3.7 GM/DL (3.2-5.2); ALT/SGPT 51 U/L (12-78); BILIRUBIN,DIRECT < 0.1 MG/DL (0.0-0.2); BILIRUBIN,TOTAL 0.2 MG/DL (0.2-1.0); BLOOD UREA NITROGEN 7 MG/DL (7-18); CALCIUM LEVEL 9.6 MG/DL (8.5-10.1); CARBON DIOXIDE LEVEL 28 MEQ/L (21-32); CHLORIDE LEVEL 104 MEQ/L (98-107); CREATININE FOR GFR 0.76 MG/DL (0.55-1.30); ETHYL ALCOHOL (ETHANOL) < 0.003 % (0.000-0.010); GLOMERULAR FILTRATION RATE > 60.0 (>60); GLUCOSE, FASTING 117 MG/DL (70-100); SALICYLATE LEVEL < 1.7 MG/DL (5.0-30.0); SODIUM LEVEL 141 MEQ/L (136-145); THYROID STIMULATING HORMONE 0.509 uIU/ML (0.358-3.740); TOTAL PROTEIN 7.4 GM/DL (6.4-8.2)
[2020-04-09 15:34] VITALS: BP 142/69
== END 2020-04-09 15:36 | disposition home or self-care (01) ==
LOC: M ED 11:38
DX: F25.9 Schizoaffective disorder, unspecified (principal); F31.9 Bipolar disorder, unspecified; J45.909 Unspecified asthma, uncomplicated; F17.200 Nicotine dependence, unspecified, uncomplicated; Z79.899 Other long term (current) drug therapy; Z86.69 Personal history of other diseases of the nervous system and sense organs
CPT/HCPCS: 36415; 80048; 80076; 80164; 80307; 84443; 85027; 99283; G0480

== ENCOUNTER 2020-04-20 21:26 | Emergency (ER) | payer OTHER ==
[~2020-04-20] VITALS: Ht 162.6 cm; Wt 93.2 kg
--- OUTSIDE RECORDS SUMMARY | 2020-04-20 21:33 | CCD ---
Author Author [facility] Organization [facility] Address Unknown Phone Unavailable Care Team Providers Care Tooth Grinder Name Role Phone Juju Barrientos Unavailable PROBLEMS Type Condition ICD9-CM Code [id number] Code Onset Dates Condition S tatus SNOMED Code Notes Problem Vitamin D deficiency E55.9 Active 40058422 Problem Paranoid schizophrenia, chronic condition F20.0 Active 10944529 Problem Tinea versicolor B36.0 Active 09765206 Problem Candidiasis of breast B37.89 Active 51626038 Problem Infrequent menses N91.5 Active 76187201 Problem Obesity E66.9 Active 655957547 Problem Body mass index 33.0-33.9, adult Z68.33 Active 668071754 Problem Obesity (BMI 30-39.9) 278.00 Active 642723951 Problem History of anemia Z86.2 Active 359083556 Problem Paranoid schizophrenia F20.0 Active 80243009 Problem Tobacco dependence F17.200 Active 41280205 Problem Night terrors, adult F51.4 Active 78187407 Problem 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 Ac tive 989577397 Problem Schizoaffective disorder, chronic condition F25.9 Active 991748237 Problem Irregular menses N92.6 Active 34753385 Problem Pica in adults F50.89 Active 72691464 Problem Cigarette nicotine dependence without complication F17.210 Active 31944477 Problem Cigarette nicotine dependence with nicotine-induced di sorder F17.219 Active 09947906 Problem Class 1 obesity due to exces s calories without serious comorbidity in adult, unspecified BMI E66.09 Active 867811722 ALLERGIES Allergen (clinical drug ingredient) Drug/Non Drug Allergy do cumented on EMR Reaction Allergy Type Onset Date Status paliperidone Invega([facility] Code:[address]-33) facial droopness Drug All ergy Active Penicillin (For Allergies Use Only) Unsure of Reaction Demarcus perez Allergy Active ENCOUNTERS from 1990 to 2020-04-18 Encounter Location Date Provider Diagnosis [facility] [place] [address] [place] [id number] Mar, Helen Lazoc IMMUNIZATIONS No Information SOCIAL HISTORY Tobacco Use: Social History Observation Description Date Details (start date - stop date) Current Smoker Sex Assigned At : Social History Observation Description Sex Assigned At Unknown Audit Question Answer Notes Total Score: 0 Interpretation: Alcohol Education Language: Question Answer Notes Languages spoken: Monegasque Sexual Hx: Question Answer Notes Had sex [...] Counseled the patient on smoking cessation, education [facility] ed 01/24/2020 REASON FOR REFERRAL No Information VITAL SIGNS No information MEDICATIONS Medication SIG (Take, Route, Frequency, Duration) Notes Start Da te End Date Status Cholecalciferol 25 MCG (1000 UT) 1 capsule Orally Once a day for 30 day(s) Active Mapap 325 MG TAKE TWO TABLETS BY MOUTH FO UR TIMES DAILY NEEDED FOR UP TO 10 DAYS Oral every 4 hrs for 4 days Not-Taking Depakote 125 MG 1 tablet Orally Twice a day for 30 day(s) Active FLUoxetine HCl 10 MG 1 capsule Orally Once a day for 30 day(s) Active Sertraline HCl 50 MG TAKE ONE TABLET BY MOUTH ONCE DAILY Oral for 30 Not-Taking Haloperidol 5 MG 3 tabs twice a day Not-Taking Cefdinir 300 MG Oral for 7 Not-Taki ng Folic Acid 1 MG TAKE ONE TABLET BY MOUTH EVERY DAY orally Daily for 30 days Active Colace 100 MG 1 capsule as needed Orally Once a day for 30 Active Prazosin HCl 1 MG 1 capsule at bedtime Orally Once a day for 30 day(s ) Not-Taking Haloperidol Decanoate 100 MG/ML INJECT 100 MG INTRAMUS CULARLY SINGLE DOSE DIRECTED EVERY MONTH Intramuscular for 30 Not-Taking Ferrous Sulfate 325 (65 Fe) MG 1 tablet orally Twice a day for 30 Day s Active Amantadine HCl 100 MG 1 capsule Orally Once a day for 30 day(s) Active Vitamin D 25 MCG (1000 UT) 1 tablet Orally Once a day for 30 day (s) Aug, Active Benztropine Mesylate 1 MG 1 tablet Orally bid Active Ramelteon 8 MG 1 tablet at bedtime as needed Orally Once a day Active Trazodone HCl 50 MG TAKE ONE TABLET BY MOUTH AT BEDTIME Oral for 30 Not-Taking Clozapine 100 MG 1 tablet Orally Once a day for 30 day(s) Active Nicotrol 10 MG 1 cartridge as needed( mdd o f 4 cartridges) Inhalation Daily PRN for 30 Days Mar, Not-Taking PROCEDURES No Information RESULTS No Results REASON FOR VISIT docusate sodium 100mg MEDICAL (GENERAL) HISTORY Type Description Date Medical [...] Medication Name Sig Start Date Stop Date Colace 100 MG 1 capsule as needed Orally Once a day for 30 Next Appt Details Provider Name:Juju Jeffreyjac, 2020-04-27 03:00:00 PM, [address] [place], [id number], Insurance Providers Payer Name Payer Address Payer Phone Insured Name Patient Relati onship to Insured Coverage Start Date Coverage End Date [facility] [address] [facility] [id number] EVELIO KUNZ self
--- OUTSIDE RECORDS SUMMARY | 2020-04-20 21:35 | CCD ---
Author Author [facility] Organization [facility] Address Unknown Phone Unavailable Support Name Relationship Address Phone Willa Tinsley Next Of Kin Unknown Unavailable Claire Gio Next Of Kin Unknown Unavailable Shakira Miller Next Of Kin [address] [place] [address] CHOOSES, TO LIST NOT Next Of Kin [address] [place] [address] [employer] [place] [address] DISABLED Next Of Kin Unknown Unavailable LISE KUNZ Next Of Kin Unknown Unavailab Bates Next Of Kin [address] [place] [address] [place] [address] [place] [address] KELLY [place] [address] AISHA ANALYTICAL [place] [address] CECILIOWSBRYCE [place] [address] G[place] [address] SEEMA KUNZ Next Of Kin [address] [place] [address] UE Next Of Kin Unknown Unavailable [place] [address] ST Next Of Kin Unknown Unavailable SADE OSULLIVAN Next Of Kin [address] [place] [address] WILLA OSULLIVAN Next Of Kin [address] [place] [address] WILLA OSULLIVAN [facility] [address] [place] [address] Unavailable Care Team Providers Care Ear Machine Operator Name Role Phone COLT, L GHISLAINE PA [...] Dana Dalton MD Unavailable Unavailable Shakira Tobias ORACLE IDENTITY MANAGEMENT CONSULTANT ORACLE IDENTITY MANAGEMENT CONSULTANT Unavailable Unavailable Jada PURDY MD Unavailable Unavailable [...] BREANNE, Jada CERDA MD Unavailable Unavailable BREANNE, aJda CERDA MD Unavailable Unavailable Meliza Sultana Unavailable Tobias, F Shakira ORACLE IDENTITY MANAGEMENT CONSULTANT-BC Unavailable Unavailable Tobias, F Shakira ORACLE IDENTITY MANAGEMENT CONSULTANT-BC Unavailable Unavailable Tobias, F Shakira ORACLE IDENTITY MANAGEMENT CONSULTANT-BC Unavailable Unavailable Tobias, F Shakira ORACLE IDENTITY MANAGEMENT CONSULTANT-BC Unavailable Unavailable Tobias, F Shakira ORACLE IDENTITY MANAGEMENT CONSULTANT-BC Unavailable Unavailable Tobias, F Shaikra ORACLE IDENTITY MANAGEMENT CONSULTANT-BC Unavailable Unavailable Tobias, F Shakira ORACLE IDENTITY MANAGEMENT CONSULTANT-BC Unavailable Unavailable Tobias, F Shakira ORACLE IDENTITY MANAGEMENT CONSULTANT-BC Unavailable Unavailable Tobias, F Shakira ORACLE IDENTITY MANAGEMENT CONSULTANT-BC Unavailable Unavailable Tobias, F Shakira ORACLE IDENTITY MANAGEMENT CONSULTANT-BC Unavailable Unavailable Tobias, F Shakira ORACLE IDENTITY MANAGEMENT CONSULTANT-BC Unavailable Unavailable Tobias, F Shakira ORACLE IDENTITY MANAGEMENT CONSULTANT-BC Unavailable Unavailable Tobias, F Shakira ORACLE IDENTITY MANAGEMENT CONSULTANT-BC Unavailable Unavailable Tobias, F Shakira ORACLE IDENTITY MANAGEMENT CONSULTANT-BC Unavailable Unavailable Tobias, F Shakira ORACLE IDENTITY MANAGEMENT CONSULTANT-BC Unavailable Unavailable Tobias, F Shakira ORACLE IDENTITY MANAGEMENT CONSULTANT-BC Unavailable Unavailable Tobias, F Shakira ORACLE IDENTITY MANAGEMENT CONSULTANT-BC Unavailable Unavailable Tobias, F Shakira ORACLE IDENTITY MANAGEMENT CONSULTANT-BC Unavailable Unavailable Tobias, F Shakira ORACLE IDENTITY MANAGEMENT CONSULTANT-BC Unavailable Unavailable Tobias, F Shakira ORACLE IDENTITY MANAGEMENT CONSULTANT-BC Unavailable Unavailable Tobias, F Shakira ORACLE IDENTITY MANAGEMENT CONSULTANT-BC Unavailable Unavailable Tobias, F Shakira ORACLE IDENTITY MANAGEMENT CONSULTANT-BC Unavailable Unavailable Rotella, Cheyenne Unavailable Viktor Hernándezisten [...] Unavailable Unavailable Dana Dalton MD Unavailable Unavailable Daan Dalton MD Unavailable Unavailable Dana Dalton MD [...] Unavailable Kenya Brody Unavailable JIM, H CAROLANN WATER SYSTEMS DESIGNER Unavailable Unavailable JIM, H CAROLANN WATER SYSTEMS DESIGNER Unavailable Unavailable JIM, H CAROLANN WATER SYSTEMS DESIGNER Unavailable Unavailable JIM, H CAROLANN WATER SYSTEMS DESIGNER Unavailable Unavailable JIM, H CAROLANN WATER SYSTEMS DESIGNER Unavailable Unavailable JIM, H CAROLANN WATER SYSTEMS DESIGNER Unavailable Unavailable JIM, H CAROLANN WATER SYSTEMS DESIGNER Unavailable Unavailable Yolanda Corrales Unavailable SYSTEM IN, NOT IN PROVIDER Unavailable Unavailable Floyd II, Isaias PA Unavailable Unavailable Flody II, Isaias PA Unavailable Unavailable Floyd II, [...] is protected by Article 27-F of the [facility] Public Health law. If you continue you may have access to information: Regarding HIV / AIDS; Provided by facilities licensed or operated by the [facility] Office of Mental Health; or Provided by the [facility] Office for People With Developmental Disabilities. If such information is present, then the following [facility] mandated warning applies: This information has been [...] law may result in a fine or fci sentence or both. A general authorization for the release of medical or other information is NOT sufficient authorization for further disc losure. Allergies and Adverse Reactions Type Description Substance Reaction Status Data Source(s ) Propensity to adverse reactions to substance nkda 24 HR Bupropion Hydrochloride 150 MG Extended Release Oral Tablet Active [facility] ([facility]) Drug allergy Invega paliperidone facial droopness Active eCW 1 ([facility]) Family History Family Member Name Family Member Gender Family Member Status Date o f Status Description Data Source(s) Unknown Male Problem MEDENT ([facility]) Encounters Encounter Providers Location Date Indications Data Source(s ) Extended Individual Psychotherapy - 45 min Attender: Gladys Hernández [facility] 04/20/2020 12:30:00 PM EST - 04/20/2020 12:30:00 PM EST [facility] ([facility]) Attender: Sharla Hernández 04/20/2020 12:00:00 A M EST [facility] ([facility]) Outpatient [address] [facility] [address] 04/17/2020 12:00:00 AM EST eCW1 ([facility]) Unknown [address] [facility] [address] 04/17/2020 12:00:00 AM EST eCW1 ([facility]) Outpatient Attender: CAROLANN FERNANDEZ WATER SYSTEMS DESIGNER EMERGENCY ROOM-LABOT [facility] 04/07/2020 08:05:00 AM EST - 04/07/2020 08:05:00 AM EST [facility] Outpatient Attender: CAROLANN FERNANDEZ NP [facility] 04/07/2020 01:00:00 AM EST - 04/07/2020 01:00:00 AM EST [facility] ([facility]) Attender: CAROLANN FERNANDEZ NP 04/07/2020 12:00:00 AM EST [facility] ([facility]) Attender: Sharla Hernández 04/07/2020 12:00:00 A M EST [facility] ([facility]) Brief Individual Psychotherapy - 30 min Attender: Sharla ahn [facility] 04/06/2020 10:45:00 AM EST - 04/06/2020 10:45:00 AM EST [facility] ([facility]) [facility] [address] [place] [address] 04/02/2020 12:00:00 AM EST eCW1 ([facility]) Outpatient Attender: CAROLANN FERNANDEZ NP EMERGENCY ROOM-[facility]OT [facility] 03/31/2020 08:22:00 AM EST - 03/31/2020 08:22:00 AM [facility] Brief Individual Psychotherapy - 30 min Attender: Meliza munoz [facility] 03/30/2020 03:00:00 AM EST - 03/30/2020 03:00:00 AM EST [facility] ([facility]) Attender: Meliza Sultana 03/30/2020 12:00:00 AM EST [facility] ([facility]) Outpatient Attender: CAROLANN FERNANDEZ NPReferrer: Dominique Dalton MD EMERGENCY ROOM-LABOTHPROV 03/24/2020 08:08:00 AM EST - 03/24/2020 08:08:00 AM [facility] Outpatient Attender: CAROLANN FERNANDEZ NP [facility] 03/24/2020 02:30:00 AM EST - 03/24/2020 02:30:00 AM EST [facility] ([facility]) Attender: CAROLANN FERNANDEZ NP 03/24/2020 12:00:00 AM EST [facility] ([facility]) Outpatient Attender: CAROLANN FERNANDEZ NP [facility] 03/10/2020 09:30:00 AM EST - 03/10/2020 09:30:00 AM EST [facility] ([facility]) Attender: CAROLANN FERNANDEZ NP 03/10/2020 12:00:00 AM EST [facility] ([facility]) Unknown [address] [facility] [address] 03/06/2020 12:00:00 AM EST eCW1 ([facility]) Emergency Attender: GHISLAINE Mandujano: Branden Dalton MD EMERGENCY ROOM-ER 03/04/2020 09:48:00 PM EST - 03/04/2020 11:40:00 PM [facility] Patient discharged. Brief Individual Psychotherapy - 30 min Attender: Meliza munoz [facility] 03/03/2020 03:00:00 AM EST - 03/03/2020 03:00:00 AM EST [facility] ([facility]) Attender: Meliza Sultana 03/03/2020 12:00:00 AM EST [facility] ([facility]) Outpatient Referrer: PROVIDER SYSTEM IN 01/31/2020 1 1:26:00 PM EST suicidal ideations [facility] suicidal ideations Outpatient Attender: CAROLANN FERNANDEZ NP [facility] 01/27/2020 05:00:00 AM EST - 01/27/2020 05:00:00 AM EST [facility] ([facility]) Attender: CAROLANN FERNANDEZ NP 01/27/2020 12:00:00 AM EST [facility] ([facility]) Outpatient [address] [facility] [address] 01/24/2020 12:00:00 AM EST eCW1 ([facility]) Unknown [address] [facility] [address] 01/22/2020 12:00:00 AM EST eCW1 ([facility]) Brief Individual Psychotherapy - 30 min Attender: Meliza munoz [facility] 01/21/2020 01:30:00 AM EST - 01/21/2020 01:30:00 AM EST [facility] ([facility]) Attender: Meliza Sultana 01/21/2020 12:00:00 AM EST [facility] ([facility]) Injectable Medication Administration w/ Monitoring & E ducation Attender: Kenya Brody [facility] 01/16/2020 10:30:00 AM EDT - 01/16/2020 10:30:00 AM EDT [facility] ([facility]) Attender: Kenya Brody 01/16/2020 12:00:00 AM EDT [facility] ([facility]) Extended Individual Psychotherapy - 45 min Attender: Jay Corrales [facility] 12/30/2019 02:45:00 AM EDT - 12/30/2019 02:45:00 AM EDT [facility] ([facility]) Attender: Yolanda Corrales 12/30/2019 12:00:00 AM EDT [facility] ([facility]) Outpatient Attender: CAROLANN FERNANDEZ NP [facility] 12/26/2019 04:30:00 AM EDT - 12/26/2019 04:30:00 AM EDT [facility] ([facility]) Attender: CAROLANN FERNANDEZ NP 12/26/2019 12:00:00 AM EDT [facility] ([facility]) Outpatient [address] [facility] [place] [address] 12/25/2019 12:00:00 AM EDT eCW1 ([facility]) Injectable Psychotropic Medication Administration (Inj ection Only) Attender: Cheyenne Allen [facility] 12/23/2019 02:00:00 AM EDT - 12/23/2019 02:00:00 AM EDT [facility] ([facility]) Attender: Cheyenne Allen 12/23/2019 12:00:00 AM EDT [facility] ([facility]) Office Visit, Est Pt., Level 3 PC [address] [place] [address] 12/20/2019 12:00:00 AM EDT eCW1 ([facility]) Attender: Cheyenne Allen 12/20/2019 12:00:00 AM EDT [facility] ([facility]) Injectable Psychotropic Medication Administration (Inj ection Only) [facility] 12/19/2019 11:00:00 AM EDT - 12/19/2019 11:00:00 AM EDT [facility] ([facility]) Outpatient Attender: CAROLANN FERNANDEZ NP [facility] 11/27/2019 04:30:00 AM EDT - 11/27/2019 04:30:00 AM EDT [facility] ([facility]) Attender: CAROLANN FERNANDEZ NP 11/27/2019 12:00:00 AM EDT [facility] ([facility]) Injectable Medication Administration w/ Monitoring & E ducation Attender: Kenya Brody [facility] 11/21/2019 03:00:00 AM EDT - 11/21/2019 03:00:00 AM EDT [facility] ([facility]) Attender: Kenya Brody 11/21/2019 12:00:00 AM EDT [facility] ([facility]) Outpatient Attender: ABRAHAM CORTEZ 11/08/2019 05:02:00 PM EDT [facility] Outpatient Attender: ABRAHAM CORTEZ 10/18/2019 02:30:05 PM EDT [facility] Outpatient Attender: Shakira CORTEZ 10/18/2019 02: 30:04 PM EDT [facility] Outpatient Attender: ABRAHAM CORTEZ 10/17/2019 10:04:01 AM EDT [facility] Outpatient Attender: ABRAHAM CORTEZ 10/09/2019 07:11:00 AM EDT [facility] Outpatient Attender: Shakira CORTEZ 10/08/2019 01: 38:59 PM EDT [facility] Outpatient Attender: ABRAHAM CORTEZ 10/08/2019 12:36:01 PM EDT [facility] Outpatient Attender: ORACLE IDENTITY MANAGEMENT CONSULTANT Jatinder ABRAHAM FP 10/08/2019 12:33:01 PM EDT [facility] Outpatient Attender: ORACLE IDENTITY MANAGEMENT CONSULTANTMaik ROSARIO FP 10/07/2019 01:47:01 PM EDT [facility] Unknown [address] [facility] [address] 10/02/2019 12:00:00 AM EDT eCW1 ([facility]) Unknown [address] [facility] [address] 10/02/2019 12:00:00 AM EDT eCW1 ([facility]) TEMPMHCTelemed 30" Psychotherapy Attender: Yolanda Corrales [facility] 09/19/2019 11:30:00 AM EDT - 09/19/2019 11:30:00 AM EDT [facility] ([facility]) Attender: Yolanda Corrales 09/19/2019 12:00:00 AM EDT [facility] ([facility]) Outpatient Attender: Isaias Purdy/Lucian/Kevin/Rein dl 09/12/2019 11:00:00 AM EDT MEDENT ([facility]) Outpatient Attender: CAROLANN FERNANDEZ NP [facility] 09/09/2019 02:00:00 AM EDT - 09/09/2019 02:00:00 AM EDT [facility] ([facility]) Attender: CAROLANN FERNANDEZ NP 09/09/2019 12:00:00 AM EDT [facility] ([facility]) Outpatient [address] [facility] [address] 09/04/2019 12:00:00 AM EDT eCW1 ([facility]) Unknown [address] [facility] [address] 09/03/2019 12:00:00 AM EDT eCW1 ([facility]) [facility] GME Resident [address] [place] [address] 09/02/2019 12:00:00 AM EDT eCW1 ([facility]) Outpatient Attender: PRASHANT Purdy/Lucian/Kevin/Thuy forrester 08/26/2019 02:00:00 PM EDT MEDENT ([facility]) Unknown [address] [facility] [address] 08/21/2019 12:00:00 AM EDT eCW1 ([facility]) TEMPMHCTelemed 30" Psychotherapy Attender: Yolanda Corrales [facility] 08/14/2019 11:00:00 AM EDT - 08/14/2019 11:00:00 AM EDT [facility] ([facility]) Attender: Yolanda Corrales 08/14/2019 12:00:00 AM EDT [facility] ([facility]) TEMPMHCTelemed 30" Psychotherapy Attender: Yolanda Corrales [facility] 07/30/2019 01:30:00 AM EDT - 07/30/2019 01:30:00 AM EDT [facility] ([facility]) Attender: Yolanda Corrales 07/30/2019 12:00:00 AM EDT [facility] ([facility]) Attender: Kenya Brody 07/30/2019 12:00:00 AM EDT [facility] ([facility]) Injectable Medication Administration w/ Monitoring & E ducation Att[facility]: [facility] 07/29/2019 02:30:00 AM EDT - 07/29/2019 02:30:00 AM EDT [facility] ([facility]) Outpatient Attender: CAROLANN FERNANDEZ NP [facility] forr[facility]er 07/23/2019 04:00:00 AM EDT - 07/23/2019 04:00:00 AM EDT [facility] ([facility]) Attender: CAROLANN FERNANDEZ NP 07/23/2019 12:00:00 AM EDT [facility] ([facility]) Outpatient [address] [facility] [address] 07/22/2019 12:00:00 AM EDT eCW1 ([facility]) [facility] [address] [facility] [address] 07/22/2019 12:00:00 AM EDT eCW1 ([facility]) TEMPMHCTelemed 30" Psychotherapy Attender: Yolanda Corrales [facility] 07/16/2019 01:30:00 AM EDT - 07/16/2019 01:30:00 AM EDT [facility] ([facility]) Attender: Yolanda Corrales 07/16/2019 12:00:00 AM EDT [facility] ([facility]) TEMPMHCTelemed 30" Psychotherapy Attender: Yolanda Corrales [facility] 07/01/2019 03:00:00 AM EDT - 07/01/2019 03:00:00 AM EDT [facility] ([facility]) Injectable Medication Administration w/ Monitoring & E ducation Attender: Kenya Brody [facility] 07/01/2019 01:30:00 AM EDT - 07/01/2019 01:30:00 AM EDT [facility] ([facility]) Attender: Yolanda Corrales 07/01/2019 12:00:00 AM EDT [facility] ([facility]) Attender: Kenya Brody 07/01/2019 12:00:00 AM EDT [facility] ([facility]) TEMPMHCTelemed 30" Psychotherapy Attender: Yolanda Corrales [facility] 06/25/2019 12:45:00 PM EDT - 06/25/2019 12:45:00 PM EDT [facility] ([facility]) Attender: Yolanda Corrales 06/25/2019 12:00:00 AM EDT [facility] ([facility]) Injectable Psychotropic Medication Administration (Inj ection Only) Attender: Cheyenne Allen [facility] 05/31/2019 08:30:00 AM EDT - 05/31/2019 08:30:00 AM EDT [facility] ([facility]) Attender: Cheyenne Allen 05/31/2019 12:00:00 AM EDT [facility] ([facility]) Injectable Medication Administration w/ Monitoring & E ducation Att[facility]: [facility] 05/29/2019 02:00:00 AM EDT - 05/29/2019 02:00:00 AM EDT [facility] ([facility]) Attender: Kenya Brody 05/29/2019 12:00:00 AM EDT [facility] ([facility]) [facility] GME Resident [address] [place] [address] 05/28/2019 12:00:00 AM EDT eCW1 ([facility]) [facility] [address] [place] [address] 05/13/2019 12:00:00 AM EST eCW1 ([facility]) Brief Individual Psychotherapy - 30 min Attender: Yolanda aguilar [facility] 05/09/2019 05:00:00 AM EST - 05/09/2019 05:00:00 AM EST [facility] ([facility]) Attender: Yolanda Corrales 05/09/2019 12:00:00 AM EST [facility] ([facility]) Injectable Medication Administration w/ Monitoring & E ducation Attender: Kenya Brody [facility] 05/01/2019 02:00:00 AM EST - 05/01/2019 02:00:00 AM EST [facility] ([facility]) Attender: Kenya Brody 05/01/2019 12:00:00 AM EST [facility] ([facility]) Outpatient Attender: CAROLANN FERNANDEZ NP [facility]er 04/24/2019 02:30:00 AM EST - 04/24/2019 02:30:00 AM EST [facility] ([facility]) Attender: CAROLANN FERNANDEZ NP 04/24/2019 12:00:00 AM EST [facility] ([facility]) [facility]ME Resident [address] [place] [address] 04/20/2019 12:00:00 AM EST eCW1 ([facility]) [facility] Mauro Blank[address] [facility], [facility] [address] 04/18/2019 12:00:00 AM EST eCW1 ([facility]) Outpatient Attender: Shakira CORTEZ 04/16/2019 01: 51:03 PM [facility] Outpatient Attender: ABRAHAM CORTEZ 04/16/2019 12:24:00 PM [facility] Outpatient Attender: ABRAHAM CORTEZ 04/16/2019 12:23:00 PM [facility] Outpatient Attender: ABRAHAM CORTEZ 04/15/2019 04:41:01 PM [facility] Outpatient Attender: ABRAHAM CORTEZ 04/12/2019 04:10:00 PM [facility] Brief Individual Psychotherapy - 30 min Attender: Yolanda aguilar [facility] 04/11/2019 11:45:00 AM EST - 04/11/2019 11:45:00 AM EST [facility] ([facility]) Attender: Yolanda Corraels 04/11/2019 12:00:00 AM EST [facility] ([facility]) Outpatient Attender: ABRAHAM CORTEZ 04/08/2019 09:51:01 AM [facility] Outpatient Attender: ABRAHAM CORTEZ 04/08/2019 08:41:01 AM [facility] Outpatient Attender: ABRAHAM CORTEZ 04/08/2019 08:40:00 AM [facility] Outpatient Attender: ABRAHAM CORTEZ 04/08/2019 08:39:01 AM [facility] Outpatient Attender: ABRAHAM CORTEZ 04/08/2019 08:18:45 AM [facility] Outpatient Attender: Shakira CORTEZ 04/08/2019 08: 16:01 AM [facility] Outpatient Attender: ABRAHAM CORTEZ 04/08/2019 07:24:01 AM [facility] Outpatient Attender: ABRAHAM CORTEZ 04/08/2019 07:23:00 AM EST [facility] [address] [facility] [address] 04/08/2019 12:00:00 AM EST eCW1 ([facility]) Injectable Medication Administration w/ Monitoring & E ducation Attender: Kenya Brody [facility] 04/03/2019 02:00:00 AM EST - 04/03/2019 02:00:00 AM EST [facility] ([facility]) Attender: Kenya Brody 04/03/2019 12:00:00 AM EST [facility] ([facility]) [facility] [address] [facility] [address] 04/02/2019 12:00:00 AM EST eCW1 ([facility]) [facility] [address] [facility] [address] 04/02/2019 12:00:00 AM EST eCW1 ([facility]) [facility] [address] [place] [address] 04/01/2019 12:00:00 AM EST eCW1 ([facility]) [facility] [address] [place] [address] 04/01/2019 12:00:00 AM EST eCW1 ([facility]) [facility] GME Resident [address] [place] [address] 03/29/2019 12:00:00 AM EST eCW1 ([facility]) Attender: Yolanda Corrales 03/28/2019 12:00:00 AM EST [facility] ([facility]) Outpatient Attender: CAROLANN FERNANDEZ NP [facility]er 03/27/2019 09:00:00 AM EST - 03/27/2019 09:00:00 AM EST [facility] ([facility]) Attender: CAROLANN FERNANDEZ NP 03/27/2019 12:00:00 AM EST [facility] ([facility]) Outpatient Attender: ABRAHAM CORTEZ 03/26/2019 09:01:07 PM EST [facility] Extended Individual Psychotherapy - 45 min Attender: Jay Corrales [facility] 03/25/2019 04:00:00 AM EST - 03/25/2019 04:00:00 AM EST [facility] ([facility]) [facility] [address] [facility] [address] 03/25/2019 12:00:00 AM EST eCW1 ([facility]) Outpatient Attender: ABRAHAM ROSARIO FP 03/14/2019 08:31:01 AM EST [facility] Extended Individual Psychotherapy - 45 min Attender: Jay Corrales [facility] 03/14/2019 05:30:00 AM EST - 03/14/2019 05:30:00 AM EST [facility] ([facility]) Attender: Yolanda Corrales 03/14/2019 12:00:00 AM EST [facility] ([facility]) Outpatient Attender: ABRAHAM ROSARIO 03/11/2019 10:56:00 AM [facility] Outpatient Attender: Shakira ROSARIO-BC 03/11/2019 10: 54:01 AM [facility] Outpatient Attender: ABRAHAM ROSARIO 03/11/2019 10:49:00 AM [facility] Outpatient Attender: Branden Dalton MD 03/01/2019 12:20:01 PM [facility] Brief Individual Psychotherapy - 30 min Attender: Yolanda aguilar [facility] 03/01/2019 11:00:00 AM EST - 03/01/2019 11:00:00 AM EST [facility] ([facility]) Attender: Yolanda Corrales 03/01/2019 12:00:00 AM EST [facility] ([facility]) [facility] [address] [address] 02/20/2019 12:00:00 AM EST eCW1 ([facility]) Functional Status Medications Medication Brand Name Start Date Product Form Dose Route Admi nistrative Instructions Pharmacy Instructions Status Indications Reaction Description Data Source(s) Fluoxetine 10 MG Oral Capsule [Prozac] Prozac 04/10/2020 12:0 0:00 AM EST 10 mg by mouth completed [id number] Prozac by mouth [id number] 0 04/10/2020 05/08/2020 every morning 30 10 mg capsule 18610 [id number] [phone] Vik Fernandez [id number] Nurse Practitioner [facility] ([facility]) Clozapine 100 MG Oral Tablet [Clozaril] Clozaril 04/08/2020 12: 00:00 AM EST 100 mg by mouth completed [id number] Clozaril by mouth [id number] 04/08/2020 05/06/2020 at bedtime 28 100 mg tablet [id number] [id number] Lance Fernandez [id number] Nurse Practitioner [facility] ([facility]) Divalproex Sodium 250 MG Delayed Release Oral Tablet [Depako te] Depakote 04/08/2020 12:00:00 AM EST 250 mg by mouth completed [id number] Depakote by mouth [id number] 04/08/2020 05/08/2020 at bedtime 30 250 mg tablet ,delayed release (DR/EC) 47689 [id number] [id number] Carolann Fernandez [id number] Nurse Practitioner [facility] ([facility]) Clozapine 25 MG Oral Tablet [Clozaril] Clozaril 03/10/2020 12:0 0:00 AM EST 25 mg by mouth completed [id number] Clozaril by mouth [id number] 03/10/2020 05/18/2020 at bedtime 7 25 mg tablet 50395 [id number] [id number] Rere Fernandez [id number] Nurse Practitioner [facility] ([facility]) Haloperidol 5 MG Oral Tablet haloperidol 01/27/2020 12:00:00 AM EST 5 mg by mouth completed [id number] haloperidol by mouth [id number] 01/2601/27/2020 twice a day 30 5 mg tablet 87819 [id number] [id number] Lance Fernandez [id number] Nurse Practitioner [facility] ([facility]) Haloperidol 5 MG Oral Tablet haloperidol 12/26/2019 12:00:00 AM EDT 5 mg by mouth completed [id number] haloperidol by mouth [id number] 12/2501/27/2020 twice a day 30 5 mg tablet 33606 [id number] [id number] Lance Fernandez [id number] Nurse Practitioner [facility] ([facility]) Haloperidol 5 MG Oral Tablet haloperidol 12/26/2019 12:00:00 AM EDT 5 mg by mouth completed [id number] haloperidol by mouth [id number] 12/2502/24/2020 twice a day 30 5 mg tablet 38136 [id number] Lance Fernandez [id number] Nurse Practitioner [facility] ([facility]) Sertraline 100 MG Oral Tablet sertraline 12/04/2019 12:00:00 AM EDT 100 mg completed [id number] sertraline 12/04/2019 02/24/2020 every morning 30 100 mg tablet 68165 [id number] [phone] Carolann Fernandez [id number] Nurse Practitioner [facility] ([facility]) Haloperidol 5 MG Oral Tablet haloperidol 12/04/2019 12:00:00 AM EDT 5 mg completed [id number] haloperidol 12/04/2019 02/02/2020 30 5 mg tablet 34279 [id number] Carolann Fernandez [id number] Nurse Torrese r [facility] ([facility]) Sertraline 100 MG Oral Tablet sertraline 12/04/2019 12:00:00 AM EDT 100 mg completed [id number] sertraline 12/04/2019 01/27/2020 every morning 30 100 mg tablet 00207 [id number] Carolann Fernandez [id number] Nurse Practitioner [facility] ([facility]) Trazodone Hydrochloride 50 MG Oral Tablet trazodone 2019 12:00:00 AM EDT 50 mg completed [id number] trazodone 11/04/2019 at bedtime 50 mg tablet as needed 71351 [id number] [phone] Carolann Fernandez [id number] Nurse Practitioner [facility] ([facility]) 12 HR Bupropion Hydrochloride 100 MG Extended Release Oral Tablet [Wellbutrin] Wellbutrin SR 10/30/2019 12:00:00 AM EDT 100 mg by mouth co [facility] [id number] Wellbutrin SR by mouth [id number] 10/30/2019 11/29/2019 once a day 30 100 mg tablet sustained-release 12 hr 83960 [id number] Rosalino Fernandez [id number] Nurse Practitioner [facility] ([facility]) doxycycline hyclate 100 MG Oral Capsule Doxycycline Hyclate 09/12/2019 12:00:00 AM EDT ORAL completed [facility] ([facility], ) Prazosin 1 MG Oral Capsule prazosin 08/27/2019 12:00:00 AM EDT 1 mg completed [id number] prazosin 08/27/2019 1 mg capsule 34584 [id number] Carolann Fernandez [id number] Nurse Practitioner [facility] ([facility]) Cholecalciferol 1000 UNT Oral Tablet Vitamin D 25 MCG (1000 UT) Vitamin D 25 MCG (1000 UT) 08/21/2019 12:00:00 AM EDT 1.0 {tablet} a ctive Vitamin D 25 MCG (1000 UT) eCW1 ([facility]) Cholecalciferol 1000 UNT Oral Tablet Vitamin D 25 MCG (1000 UT) Vitamin D 25 MCG (1000 UT) 08/21/2019 12:00:00 AM EDT 1.0 {tablet} a ctive Vitamin D 25 MCG (1000 UT) eCW1 ([facility]) Cholecalciferol 1000 UNT Oral Tablet Vitamin D 25 MCG (1000 UT) Vitamin D 25 MCG (1000 UT) 08/21/2019 12:00:00 AM EDT 1.0 {tablet} a ctive Vitamin D 25 MCG (1000 UT) eCW1 ([facility]) Cholecalciferol 1000 UNT Oral Tablet Vitamin D 25 MCG (1000 UT) Vitamin D 25 MCG (1000 UT) 08/21/2019 12:00:00 AM EDT 1.0 {tablet} a ctive Vitamin D 25 MCG (1000 UT) eCW1 ([facility]) Cholecalciferol 1000 UNT Oral Tablet Vitamin D 25 MCG (1000 UT) Vitamin D 25 MCG (1000 UT) 08/21/2019 12:00:00 AM EDT 1.0 {tablet} a ctive Vitamin D 25 MCG (1000 UT) eCW1 ([facility]) Cholecalciferol 1000 UNT Oral Tablet Vitamin D 25 MCG (1000 UT) Vitamin D 25 MCG (1000 UT) 08/21/2019 12:00:00 AM EDT 1.0 {tablet} a ctive Vitamin D 25 MCG (1000 UT) eCW1 ([facility]) Cholecalciferol 1000 UNT Oral Tablet Vitamin D 25 MCG (1000 UT) Vitamin D 25 MCG (1000 UT) 08/21/2019 12:00:00 AM EDT 1.0 {tablet} a ctive Vitamin D 25 MCG (1000 UT) eCW1 ([facility]) Cholecalciferol 1000 UNT Oral Tablet Vitamin D 25 MCG (1000 UT) Vitamin D 25 MCG (1000 UT) 08/21/2019 12:00:00 AM EDT 1.0 {tablet} a ctive Vitamin D 25 MCG (1000 UT) eCW1 ([facility]) Cholecalciferol 1000 UNT Oral Tablet Vitamin D 25 MCG (1000 UT) Vitamin D 25 MCG (1000 UT) 08/21/2019 12:00:00 AM EDT 1.0 {tablet} a ctive Vitamin D 25 MCG (1000 UT) eCW1 ([facility]) Cholecalciferol 1000 UNT Oral Tablet Vitamin D 25 MCG (1000 UT) Vitamin D 25 MCG (1000 UT) 08/21/2019 12:00:00 AM EDT 1.0 {tablet} a ctive Vitamin D 25 MCG (1000 UT) eCW1 ([facility]) Cholecalciferol 1000 UNT Oral Tablet Vitamin D 25 MCG (1000 UT) Vitamin D 25 MCG (1000 UT) 08/21/2019 12:00:00 AM EDT 1.0 {tablet} a ctive Vitamin D 25 MCG (1000 UT) eCW1 ([facility]) Cholecalciferol 1000 UNT Oral Tablet Vitamin D 25 MCG (1000 UT) Vitamin D 25 MCG (1000 UT) 08/21/2019 12:00:00 AM EDT 1.0 {tablet} a ctive Vitamin D 25 MCG (1000 UT) eCW1 ([facility]) Cholecalciferol 1000 UNT Oral Tablet Vitamin D 25 MCG (1000 UT) Vitamin D 25 MCG (1000 UT) 08/21/2019 12:00:00 AM EDT 1.0 {tablet} a ctive Vitamin D 25 MCG (1000 UT) eCW1 ([facility]) benztropine mesylate 1 MG Oral Tablet benztropine 07/23/2019 12:00 :00 AM EDT 1 mg completed [id number] benztropine 07/23/2019 11/08/19 20 30 1 mg tablet 93553 [id number] [id number] Carolann Fernandez [id number] Nurse P dyantitioner [facility] ([facility]) Sertraline 100 MG Oral Tablet sertraline 07/23/2019 12:00:00 AM EDT 100 mg completed [id number] sertraline 07/23/2019 12/29/2019 every morning 30 100 mg tablet 03717 [id number] [id number] Carolann Fernandez [id number] Nurse Practitioner [facility] ([facility]) Sertraline 100 MG Oral Tablet sertraline 07/23/2019 12:00:00 AM EDT 100 mg completed [id number] sertraline 07/23/2019 09/21/2019 every morning 30 100 mg tablet 27049 [id number] [id number] Carolann Fernandez [id number] Nurse Practitioner [facility] ([facility]) benztropine mesylate 1 MG Oral Tablet benztropine 07/23/2019 12:00 :00 AM EDT 1 mg completed [id number] benztropine 07/23/2019 03/30/19 21 30 1 mg tablet 21639 160061 [id number] Carolann Fernandez [id number] Nurse P dyantitioner [facility] ([facility]) benztropine mesylate 1 MG Oral Tablet benztropine 07/23/2019 12:00 :00 AM EDT 1 mg completed [id number] benztropine 07/23/2019 09/21/19 20 30 1 mg tablet 18753 355024 [id number] Carolann Fernandez [id number] Nurse P dyantitioner [facility] ([facility]) benztropine mesylate 1 MG Oral Tablet benztropine 07/23/2019 12:00 :00 AM EDT 1 mg completed [id number] benztropine 07/23/2019 02/24/20 20 30 1 mg tablet 22614 [id number] [id number] Carolann Fernandez [id number] Nurse Maik zaidititioner [facility] ([facility]) Haloperidol 5 MG Oral Tablet haloperidol 06/05/2019 12:00:00 AM EDT 5 mg completed [id number] haloperidol 06/05/2019 11/08/2019 30 5 mg tablet 88618 [id number] [id number] Carolann Jim [id number] Nurse Practitione r [facility] ([facility]) Haloperidol 5 MG Oral Tablet haloperidol 06/05/2019 12:00:00 AM EDT 5 mg completed [id number] haloperidol 06/05/2019 12/29/2019 30 5 mg tablet 37892 [id number] [id number] Carolann Fernandez [id number] Nurse Practitione r [facility] ([facility]) Amantadine Hydrochloride 100 MG Oral Capsule amantadine HCl 06/05/2019 12:00:00 AM EDT 100 mg completed [id number] amantadine HCl 06/05/2019 02/24/2020 30 100 mg capsule 43790 268947 [id number] Rosalino Fernandez [id number] Nurse Practitioner [facility] ([facility]) Prazosin 1 MG Oral Capsule prazosin 06/05/2019 12:00:00 AM EDT 1 mg completed [id number] prazosin 06/05/2019 30 1 mg capsule 55087 [id number] Kellen Matute [id number] Psychiatric/Mental Health [facility] ([facility]) Prazosin 1 MG Oral Capsule prazosin 06/05/2019 12:00:00 AM EDT 1 mg completed [id number] prazosin 06/05/2019 08/22/2019 30 1 mg capsule 57405 [id number] Carolann Fernandez [id number] Nurse Practitioner [facility] ([facility]) Amantadine Hydrochloride 100 MG Oral Capsule amantadine HCl 06/05/2019 12:00:00 AM EDT 100 mg completed [id number] amantadine HCl 30 100 mg capsule 45531 [id number] [id number] Carolann Fernandez [id number] Nurse Practitioner [facility] ([facility]) Amantadine Hydrochloride 100 MG Oral Capsule amantadine HCl 06/05/2019 12:00:00 AM EDT 100 mg completed [id number] amantadine HCl 06/05/2019 03/30/2020 30 100 mg capsule 87990 [id number] [id number] Rosalino Fernandez [id number] Nurse Practitioner [facility] ([facility]) Amantadine Hydrochloride 100 MG Oral Capsule amantadine HCl 06/05/2019 12:00:00 AM EDT 100 mg completed [id number] amantadine HCl 06/05/2019 12/29/2019 30 100 mg capsule 59569 711094 [id number] Rosalino Fernandez [id number] Nurse Practitioner [facility] ([facility]) Fluconazole 150 MG Oral Tablet Fluconazole 150 MG 05/13/2019 12:00: 00 AM EST 1.0 {tablet} active Fluconazole 150 MG eCW1 ([facility]) Fluconazole 150 MG Oral Tablet Fluconazole 150 MG 05/13/2019 12:00: 00 AM EST 1.0 {tablet} active Fluconazole 150 MG eCW1 ([facility]) Fluconazole 150 MG Oral Tablet Fluconazole 150 MG 05/13/2019 12:00: 00 AM EST active 1 tablet eCW1 ([facility]) Fluconazole 150 MG Oral Tablet Fluconazole 150 MG 05/13/2019 12:00: 00 AM EST 1.0 {tablet} active Fluconazole 150 MG eCW1 ([facility]) Fluconazole 150 MG Oral Tablet Fluconazole 150 MG 05/13/2019 12:00: 00 AM EST 1.0 {tablet} active Fluconazole 150 MG eCW1 ([facility]) Fluconazole 150 MG Oral Tablet Fluconazole 150 MG 05/13/2019 12:00: 00 AM EST 1.0 {tablet} active Fluconazole 150 MG eCW1 ([facility]) Fluconazole 150 MG Oral Tablet Fluconazole 150 MG 05/13/2019 12:00: 00 AM EST active 1 tablet eCW1 ([facility]) Fluconazole 150 MG Oral Tablet Fluconazole 150 MG 05/13/2019 12:00: 00 AM EST 1.0 {tablet} active Fluconazole 150 MG eCW1 ([facility]) Clotrimazole 10 MG/ML Topical Cream Clotrimazole 1 % Clotrim azole 1 % 04/01/2019 12:00:00 AM EST 1.0 {application_at_bedtime} ac tive Clotrimazole 1 % eCW1 ([facility]) Clotrimazole 10 MG/ML Topical Cream Clotrimazole 1 % Clotrim azole 1 % 04/01/2019 12:00:00 AM EST 1.0 {application_at_bedtime} ac tive Clotrimazole 1 % eCW1 ([facility]) Clotrimazole 10 MG/ML Topical Cream Clotrimazole 1 % Clotrim azole 1 % 04/01/2019 12:00:00 AM EST active 1 appli cation at bedtime eCW1 ([facility]) Clotrimazole 10 MG/ML Topical Cream Clotrimazole 1 % Clotrim azole 1 % 04/01/2019 12:00:00 AM EST active 1 appli cation at bedtime eCW1 ([facility]) Clotrimazole 10 MG/ML Topical Cream Clotrimazole 1 % Clotrim azole 1 % 04/01/2019 12:00:00 AM EST 1.0 {application_at_bedtime} ac tive Clotrimazole 1 % eCW1 ([facility]) Clotrimazole 10 MG/ML Topical Cream Clotrimazole 1 % Clotrim azole 1 % 04/01/2019 12:00:00 AM EST 1.0 {application_at_bedtime} ac tive Clotrimazole 1 % eCW1 ([facility]) Clotrimazole 10 MG/ML Topical Cream Clotrimazole 1 % Clotrim azole 1 % 04/01/2019 12:00:00 AM EST 1.0 {application_at_bedtime} ac tive Clotrimazole 1 % eCW1 ([facility]) Clotrimazole 10 MG/ML Topical Cream Clotrimazole 1 % Clotrim azole 1 % 04/01/2019 12:00:00 AM EST 1.0 {application_at_bedtime} ac tive Clotrimazole 1 % eCW1 ([facility]) Fluconazole 150 MG Oral Tablet Fluconazole 150 MG 04/01/2019 12:00: 00 AM EST active 1 tablet eCW1 ([facility]) Nicotine 4 MG/ACTUAT Inhalant Solution [Nicotrol] Nicotrol 1 0 MG Nicotrol 10 MG 03/29/2019 12:00:00 AM EST suspended Nicotrol 10 MG eCW1 ([facility]) Nicotine 4 MG/ACTUAT Inhalant Solution [Nicotrol] Nicotrol 1 0 MG Nicotrol 10 MG 03/29/2019 12:00:00 AM EST active Nicotrol 10 MG eCW1 ([facility]) Nicotine 4 MG/ACTUAT Inhalant Solution [Nicotrol] Nicotrol 1 0 MG Nicotrol 10 MG 03/29/2019 12:00:00 AM EST active Nicotrol 10 MG eCW1 ([facility]) Nicotine 4 MG/ACTUAT Inhalant Solution [Nicotrol] Nicotrol 1 0 MG Nicotrol 10 MG 03/29/2019 12:00:00 AM EST active Nicotrol 10 MG eCW1 ([facility]) Nicotine 4 MG/ACTUAT Inhalant Solution [Nicotrol] Nicotrol 1 0 MG Nicotrol 10 MG 03/29/2019 12:00:00 AM EST active Nicotrol 10 MG eCW1 ([facility]) Nicotine 4 MG/ACTUAT Inhalant Solution [Nicotrol] Nicotrol 1 0 MG Nicotrol 10 MG 03/29/2019 12:00:00 AM EST active Nicotrol 10 MG eCW1 ([facility]) Nicotine 4 MG/ACTUAT Inhalant Solution [Nicotrol] Nicotrol 1 0 MG Nicotrol 10 MG 03/29/2019 12:00:00 AM EST active Nicotrol 10 MG eCW1 ([facility]) Nicotine 4 MG/ACTUAT Inhalant Solution [Nicotrol] Nicotrol 1 0 MG Nicotrol 10 MG 03/29/2019 12:00:00 AM EST active 1 cartridge as needed( mdd of 4 cartridges) eCW1 ([facility]) Nicotine 4 MG/ACTUAT Inhalant Solution [Nicotrol] Nicotrol 1 0 MG Nicotrol 10 MG 03/29/2019 12:00:00 AM EST active 1 cartridge as needed( mdd of 4 cartridges) eCW1 ([facility]) Nicotine 4 MG/ACTUAT Inhalant Solution [Nicotrol] Nicotrol 1 0 MG Nicotrol 10 MG 03/29/2019 12:00:00 AM EST active Nicotrol 10 MG eCW1 ([facility]) Nicotine 4 MG/ACTUAT Inhalant Solution [Nicotrol] Nicotrol 1 0 MG Nicotrol 10 MG 03/29/2019 12:00:00 AM EST active 1 cartridge as needed( mdd of 4 cartridges) eCW1 ([facility]) Nicotine 4 MG/ACTUAT Inhalant Solution [Nicotrol] Nicotrol 1 0 MG Nicotrol 10 MG 03/29/2019 12:00:00 AM EST suspended Nicotrol 10 MG eCW1 ([facility]) Nicotine 4 MG/ACTUAT Inhalant Solution [Nicotrol] Nicotrol 1 0 MG Nicotrol 10 MG 03/29/2019 12:00:00 AM EST active Nicotrol 10 MG eCW1 ([facility]) Nicotine 4 MG/ACTUAT Inhalant Solution [Nicotrol] Nicotrol 1 0 MG Nicotrol 10 MG 03/29/2019 12:00:00 AM EST active Nicotrol 10 MG eCW1 ([facility]) Nicotine 4 MG/ACTUAT Inhalant Solution [Nicotrol] Nicotrol 1 0 MG Nicotrol 10 MG 03/29/2019 12:00:00 AM EST active Nicotrol 10 MG eCW1 ([facility]) Nicotine 4 MG/ACTUAT Inhalant Solution [Nicotrol] Nicotrol 1 0 MG Nicotrol 10 MG 03/29/2019 12:00:00 AM EST active Nicotrol 10 MG eCW1 ([facility]) Trazodone Hydrochloride 50 MG Oral Tablet trazodone 2018 12:00:00 AM EST 50 mg completed [id number] trazodone 02/21/2019 040 09/2019 30 50 mg tablet 57000 [id number] [id number] Carolann Fernandez [id number] Nurse Practitioner [facility] ([facility]) Trazodone Hydrochloride 50 MG Oral Tablet trazodone 2018 12:00:00 AM EST 50 mg completed [id number] trazodone 02/21/20190 06/2019 30 50 mg tablet 07363 [id number] [id number] Carolann Fernandez [id number] Nurse Practitioner [facility] ([facility]) Trazodone Hydrochloride 50 MG Oral Tablet trazodone 2018 12:00:00 AM EST 50 mg completed [id number] trazodone 02/21/201909/18 30 50 mg tablet 24177 369960 [id number] Carolann Fernandez [id number] Nurse Practitioner [facility] ([facility]) benztropine mesylate 1 MG Oral Tablet benztropine 02/21/2019 12:00 :00 AM EST 1 mg completed [id number] benztropine 02/21/2019 06/25/19 20 30 1 mg tablet 06921 [id number] [id number] Carolann Fernandez [id number] Nurse Pleitez ractitioner [facility] ([facility]) benztropine mesylate 1 MG Oral Tablet benztropine 02/21/2019 12:00 :00 AM EST 1 mg completed [id number] benztropine 02/21/2019 30 1 mg tablet 27801 [id number] [id number] Carolann Fernandez [id number] Nurse Torrese r [facility] ([facility]) Haloperidol 5 MG Oral Tablet haloperidol 02/05/2019 12:00:00 AM EST 5 mg by mouth completed [id number] haloperidol by mouth [id number] 02/0505/26/2019 twice a day 30 5 mg tablet 92780 [id number] [id number] Lance Fernandez [id number] Nurse Practitioner [facility] ([facility]) Haloperidol 5 MG Oral Tablet haloperidol 02/05/2019 12:00:00 AM EST 5 mg by mouth completed [id number] haloperidol by mouth [id number] 02/0505/26/2019 twice a day 30 5 mg tablet 87350 542239 [id number] Lance Fernandez [id number] Nurse Practitioner [facility] ([facility]) Haloperidol 5 MG Oral Tablet haloperidol 02/05/2019 12:00:00 AM EST 5 mg by mouth completed [id number] haloperidol by mouth [id number] 02/0504/06/2019 twice a day 30 5 mg tablet 18390 706631 [id number] Lance Fernandez [id number] Psychiatric/Mental Health [facility] ([facility]) Amantadine Hydrochloride 100 MG Oral Capsule amantadine HCl 11/14/2018 12:00:00 AM EDT 100 mg by mouth completed 411554 amantadine HCl by mouth [id number] 11/14/2018 05/26/2019 at bedtime 30 100 mg capsule 90194 1 [id number] [phone] Carolann Fernandez [id number] Nurse Practitioner [facility] ([facility]) Amantadine Hydrochloride 100 MG Oral Capsule amantadine HCl 11/14/2018 12:00:00 AM EDT 100 mg by mouth completed 115688 amantadine HCl by mouth [id number] 11/14/2018 05/26/2019 at bedtime 30 100 mg capsule 40802 1 [id number] [phone] Carolann Fernandez [id number] Nurse Practitioner [facility] ([facility]) Amantadine Hydrochloride 100 MG Oral Capsule amantadine HCl 11/14/2018 12:00:00 AM EDT 100 mg by mouth completed 305556 amantadine HCl by mouth [id number] 11/14/2018 04/06/2019 at bedtime 30 100 mg capsule 93394 1 [id number] [id number] Carolann Fernandez [id number] Nurse Practitioner [facility] ([facility]) Amantadine Hydrochloride 100 MG Oral Capsule amantadine HCl 11/14/2018 12:00:00 AM EDT 100 mg by mouth completed 169922 amantadine HCl by mouth [id number] 11/14/2018 04/06/2019 at bedtime 30 100 mg capsule 36525 1 [id number] Carolann Fernandez [id number] Psychiatric/Mental Health [facility] ([facility]) Haldol Decanoate Haldol Decanoate 10/10/2018 12:00:00 AM EDT 100 mg/mL completed [id number] Haldol Decanoate intramuscularly 10/1005/01/2019 every four weeks 28 100 mg/mL solution 51307 [id number] [phone] Carolann Fernandez [id number] Psychiatric/Mental Health [facility] ([facility]) benztropine mesylate 1 MG Oral Tablet benztropine 08/16/2018 12:00 :00 AM EDT 1 mg by mouth completed [id number] benztropine by mouth [id number] 08/16/2018 04/06/2019 twice a day 30 1 mg tablet 82009 [id number] [id number] Lance giselle Fernandez [id number] Psych[facility]Mental Health [facility] ([facility]) Trazodone Hydrochloride 50 MG Oral Tablet trazodone 2018 12:00:00 AM EDT 50 mg by mouth completed [id number] trazodone by mouth [id number] 88 08/16/2018 04/06/2019 at bedtime 30 50 mg tablet 15088 479915 [id number] Rere vivian Fernandez [id number] Psychiatric/Mental Health [facility] ([facility]) benztropine mesylate 1 MG Oral Tablet benztropine 08/16/2018 12:00 :00 AM EDT 1 mg by mouth completed [id number] benztropine by mouth C38 288 08/16/2018 04/06/2019 twice a day 30 1 mg tablet 02415 [id number] Lance giselle Fernandez [id number] Psych[facility] Health [facility] ([facility]) Trazodone Hydrochloride 50 MG Oral Tablet trazodone 2018 12:00:00 AM EDT 50 mg by mouth completed [id number] trazodone by mouth [id number] 88 08/16/2018 04/06/2019 at bedtime 30 50 mg tablet 54659 169325 [id number] Rere Fernandez [id number] Psychiatric/Mental Health [facility] ([facility]) benztropine mesylate 1 MG Oral Tablet benztropine 08/16/2018 12:00 :00 AM EDT 1 mg by mouth completed 030072 benztropine by mouth C38 288 08/16/2018 04/06/2019 twice a day 30 1 mg tablet 18414 227376 [id number] Lance Fernandez [id number] Psychiatric/Mental Health [facility] ([facility]) Trazodone Hydrochloride 50 MG Oral Tablet trazodone 2018 12:00:00 AM EDT 50 mg by mouth completed 595391 trazodone by mouth [id number] 88 08/16/2018 04/06/2019 at bedtime 30 50 mg tablet 33157 064286 [id number] Rere Fernandez [id number] Psych[facility]Mental Health [facility] ([facility]) Prazosin 1 MG Oral Capsule prazosin 07/18/2018 12:00:00 AM EDT 1 mg by mouth completed [id number] prazosin by mouth [id number] 07/18/2018 at bedtime 30 1 mg capsule 32636 953105 [id number] Carolann Fernandez 3 [id number] Psych[facility]Mental Health [facility] ([facility]) Prazosin 1 MG Oral Capsule prazosin 07/18/2018 12:00:00 AM EDT 1 mg by mouth completed [id number] prazosin by mouth [id number] 07/18/2018 at bedtime 30 1 mg capsule 82783 [id number] [id number] Carolann Fernandez 3 [id number] Nurse Practitioner [facility] ([facility]) Prazosin 1 MG Oral Capsule prazosin 07/18/2018 12:00:00 AM EDT 1 mg by mouth completed 930552 prazosin by mouth [id number] 07/18/201810/2019 at bedtime 30 1 mg capsule 51824 [id number] [id number] Carolann Fernandez 3 [id number] Nurse Practitioner [facility] ([facility]) Prazosin 1 MG Oral Capsule prazosin 07/18/2018 12:00:00 AM EDT 1 mg by mouth completed [id number] prazosin by mouth [id number] 07/18/201810/2019 at bedtime 30 1 mg capsule 88018 [id number] Carolann Fernandez 3 [id number] Nurse Practitioner [facility] ([facility]) Sertraline 100 MG Oral Tablet sertraline 03/27/2018 12:00:00 AM EST 100 mg completed [id number] sertraline 03/27/2018 05/06/2019 every morning 30 100 mg tablet 20380 [id number] [id number] Carolann Fernandez [id number] Psychiatric/Mental Health [facility] ([facility]) Sertraline 100 MG Oral Tablet sertraline 03/27/2018 12:00:00 AM EST 100 mg completed [id number] sertraline 03/27/2018 05/06/2019 every morning 30 100 mg tablet [id number] Carolann Fernandez [id number] Psychiatric/Mental Health [facility] ([facility]) Sertraline 100 MG Oral Tablet sertraline 03/27/2018 12:00:00 AM EST 100 mg completed [id number] sertraline 03/27/2018 05/06/2019 every morning 30 100 mg tablet [id number] Carolann Fernandez [id number] Nurse Practitioner [facility] ([facility]) Insurance Providers Payer name Policy type / Coverage type Policy ID Covered alliance party ID Covered alliance party's relationship to mahajan Policy Mahajan Plan Information [id number] SP [id number] [facility] [id number] SP [id number] [facility] MEDICAID [id number] S [id number] [facility] MEDICAID [id number] S [id number] [facility](MCAID) O [id number] S [id number] [facility] I [id number] Self [id number] Managed Care [facility] Community Plan P [id number] S [id number] Medicaid S [id number] S [id number] Managed Care [facility] Community Plan P [id number] S [id number] Managed Care - [facility] P [id number] S [id number] Medicaid S [id number] S [id number] [facility] MEDICAID [id number] S [id number] [facility] MEDICAID [id number] S [id number] ANSI-Medicaid [id number] ANSI-Medicaid [id number] ANSI-Medicaid [id number] ANSI-Medicaid [id number] ANSI-Medicaid [id number] ANSI-Medicaid [id number] [facility] [id number] SP [id number] [facility] COMMUNITY PLAN [facility] [id number] SP [id number] MEDICAID [id number] SP [id number] [facility] [id number] SP [id number] [facility] [id number] SP [id number] Managed Care - [facility] P [id number] S [id number] [facility] I [id number] Self [id number] [facility] I [id number] Self [id number] [facility] I [id number] Self [id number] [facility] Community Plan Commercial [id number] Self [id number] [facility] Community Plan Commercial [id number] Self [id number] Medicaid S [id number] S [id number] [facility] [id number] S [id number] [facility] COMMUNITY PLAN [id number] SP [id number] [facility] [id number] SP [id number] [facility] OFFICE OF MENTAL HEALTH [id number] S [id number] [facility] [id number] S [id number] [facility](MCAID) O [id number] S [id number] MEDICAID [id number] S [id number] MEDICAID M [id number] [employer] COMMUNITY PLAN MCDO [id number] SP [id number] [employer] COMMUNITY PLAN MCDO [id number] SP [id number] [employer] COMMUNITY PLAN MCDO [id number] SP [id number] MEDICAID [id number] SP [id number] SELF PAY ONLY [id number] SP [id number] [facility] [id number] SP [id number] [facility](MCAID) O [id number] S [id number] [employer] COMMUNITY PLAN MCDO [id number] SP [id number] [facility] [id number] SP [id number] [facility] [id number] SP [id number] [employer] XIX HMO [id number] Problems, Conditions, and Diagnoses Code Display Name Description Problem Type Effective Dates Data Source(s) F25.9 Schizoaffective disorder, unspecified Schizoaffective Disorder Condition 04/20/2020 12:00:00 AM EST [facility] ([facility]) F25.9 [id number] Schizoaffective disorder, chronic conditi on Problem 03/12/2020 12:00:00 AM EST eCW1 ([facility]) Z72.0 Tobacco use Tobacco Use Disorder, Mild Condition 1 05/04/2019 12:00:00 AM EST [facility] ([facility]) E66.09 [id number] Class 1 obesity due to excess calories without serious comorbidity in adult, unspecified BMI Problem 12/20/2019 12:00:00 AM EDT eCW1 ([facility]) F51.4 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, adult Problem 12/20/2019 12:0 0:00 AM EDT eCW1 ([facility]) 521.00 Dental caries Dental caries 10/18/2019 02:29:07 PM EDT [facility] F17.219 10367252 Cigarette nicotine dependence wi th nicotine-induced disorder Problem 09/05/2019 12:00:00 AM EDT eCW1 ([facility]) F17.210 74531398 Cigarette nicotine dependence without com plication Problem 07/22/2019 12:00:00 AM EDT eCW1 ([facility]) F17.210 79788698 Cigarette nicotine dependence without com plication Problem 07/22/2019 12:00:00 AM EDT eCW1 ([facility]) F50.89 70310293 Pica in adults Problem 05/28/2019 12:00:00 A M EDT eCW1 ([facility]) F50.89 81037512 Pica in adults Problem 05/28/2019 12:00:00 A M EDT eCW1 ([facility]) 305.1 Tobacco use Tobacco use 04/08/2019 08:16:00 AM EST [facility] F17.200 56237555 Tobacco dependence Problem 03/29/2019 12:00: 00 AM EST eCW1 ([facility]) F17.200 29105342 Tobacco dependence Problem 03/29/2019 12:00: 00 AM EST eCW1 ([facility]) F25.0 Schizoaffective disorder, bipolar type S CHIZOAFFECTIVE DISORDER, BIPOLAR TYPE Diagnosis 04/07/2020 08:05:00 AM [facility] l 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 Diagnosis 03/04/2020 09:48:00 PM [facility] K52.9 Noninfective gastroenteritis and colitis , unspecified NONINFECTIVE GASTROENTERITIS AND COLITIS, UNSPECIF Diagnosis 03/04/2020 09:48:00 PM [facility] R11.2 Nausea with vomiting, unspecified NAUSEA WITH VO MITING, UNSPECIFIED Diagnosis 03/04/2020 09:48:00 PM [facility] suicidal ideations suicidal ideations Diagnosis 0 11:26:00 PM [facility] Surgeries/Procedures Procedure Description Date Indications Data Source(s) Extended Individual Psychotherapy - 45 min 04/20/2020 12:00:00 AM EST - 04/20/2020 12:00:00 AM EST [facility] ([facility]) Extended Individual Psychotherapy - 45 min 12:00:00 AM EST [facility] ([facility]) OFFICE OUTPATIENT VISIT 15 MINUTES 04/07 12:00:00 AM EST - 04/07/2020 12:00:00 AM EST [facility] ([facility]) OFFICE OUTPATIENT VISIT 15 MINUTES 04/07/2020 12:00:00 AM EST [facility] ([facility]) Brief Individual Psychotherapy - 30 min 04/07/2020 12:00:00 AM EST - 04/07/2020 12:00:00 AM EST [facility] ([facility]) Brief Individual Psychotherapy - 30 min 04/06/2020 12: 00:00 AM EST [facility] ([facility]) Brief Individual Psychotherapy - 30 min 03/30/2020 12:00:00 AM EST - 03/30/2020 12:00:00 AM EST [facility] ([facility]) Brief Individual Psychotherapy - 30 min 03/30/2020 12: 00:00 AM EST [facility] ([facility]) OFFICE OUTPATIENT VISIT 15 MINUTES 03/24 12:00:00 AM EST - 03/24/2020 12:00:00 AM EST [facility] ([facility]) OFFICE OUTPATIENT VISIT 15 MINUTES 03/24/2020 12:00:00 AM EST [facility] ([facility]) OFFICE OUTPATIENT VISIT 15 MINUTES 03/10 12:00:00 AM EST - 03/10/2020 12:00:00 AM EST [facility] ([facility]) Psychotherapy ADD ON - 30 Minutes 03/10/2020 12:00:00 AM EST [facility] ([facility]) OFFICE OUTPATIENT VISIT 15 MINUTES 03/10/2020 12:00:00 AM EST [facility] ([facility]) Brief Individual Psychotherapy - 30 min 03/03/2020 12:00:00 AM EST - 03/03/2020 12:00:00 AM EST [facility] ([facility]) Brief Individual Psychotherapy - 30 min 03/03/2020 12: 00:00 AM EST [facility] ([facility]) OFFICE OUTPATIENT VISIT 15 MINUTES 01/26 12:00:00 AM EST - 01/27/2020 12:00:00 AM EST [facility] ([facility]) OFFICE OUTPATIENT VISIT 15 MINUTES 01/27/2020 12:00:00 AM EST [facility] ([facility]) Brief Individual Psychotherapy - 30 min 01/21/2020 12:00:00 AM EST - 01/21/2020 12:00:00 AM EST [facility] ([facility]) Brief Individual Psychotherapy - 30 min 01/21/2020 12: 00:00 AM EST [facility] ([facility]) Comprehensive medication services, per 15 minutes 01/16/2020 12:00:00 AM EDT - 01/16/2020 12:00:00 AM EDT [facility] ([facility]) Comprehensive medication services, per 15 minutes 01/16/2020 12:00:00 AM EDT [facility] ([facility]) Extended Individual Psychotherapy - 45 min 12/30/2019 12:00:00 AM EDT - 12/30/2019 12:00:00 AM EDT [facility] ([facility]) Extended Individual Psychotherapy - 45 min 0 12:00:00 AM EDT [facility] ([facility]) MHC Telemed E/M Lvl 3--Est pt 12/26/2019 12:00:00 AM EDT - 12/26/2019 12:00:00 AM EDT [facility] ([facility]) MHC Telemed E/M Lvl 3--Est pt 12/26/2019 12:00:00 AM E DT [facility] ([facility]) uro PVR (Post Voiding Residual) Bladder Scan 0 12:00:00 AM EDT eCW1 ([facility]) THERAPEUTIC PROPHYLACTIC/DX INJECTION SUBQ/IM 12/23/2019 12:00:00 AM EDT - 12/23/2019 12:00:00 AM EDT [facility] ([facility]) THERAPEUTIC PROPHYLACTIC/DX INJECTION SUBQ/IM 12/23/19 12:00:00 AM EDT [facility] ([facility]) THERAPEUTIC PROPHYLACTIC/DX INJECTION SUBQ/IM 12/20/2019 12:00:00 AM EDT - 12/20/2019 12:00:00 AM EDT [facility] ([facility]) THERAPEUTIC PROPHYLACTIC/DX INJECTION SUBQ/IM 12/19/19 20 12:00:00 AM EDT [facility] ([facility]) MHC Telemed E/M Lvl 3--Est pt 11/27/2019 12:00:00 AM EDT - 11/27/2019 12:00:00 AM EDT [facility] ([facility]) Psychotherapy ADD ON - 30 Minutes 11/27/2019 12:00:00 AM EDT [facility] ([facility]) MHC Telemed E/M Lvl 3--Est pt 11/27/2019 12:00:00 AM E DT [facility] ([facility]) Comprehensive medication services, per 15 minutes 11/21/2019 12:00:00 AM EDT - 11/21/2019 12:00:00 AM EDT [facility] ([facility]) Comprehensive medication services, per 15 minutes 11/21/2019 12:00:00 AM EDT [facility] ([facility]) TEMPMHCTelemed 30" Psychotherapy 020 12:00:00 AM EDT - 09/19/2019 12:00:00 AM EDT [facility] ([facility]) TEMPMHCTelemed 30" Psychotherapy 09/19/2019 12:00:00 A M EDT [facility] ([facility]) MHC Telemed E/M Lvl 3--Est pt 09/09/2019 12:00:00 AM EDT - 09/09/2019 12:00:00 AM EDT [facility] ([facility]) MHC Telemed E/M Lvl 3--Est pt 09/09/2019 12:00:00 AM E DT [facility] ([facility]) Endoscopy Nasal/Sinus W/ Control Of Epistaxis 09/05/19 12:00:00 AM EDT [facility] ([facility] ) TEMPMHCTelemed 30" Psychotherapy 12:00:00 AM EDT - 08/14/2019 12:00:00 AM EDT [facility] ([facility]) TEMPMHCTelemed 30" Psychotherapy 08/14/2019 12:00:00 A M EDT [facility] ([facility]) TEMPMHCTelemed 30" Psychotherapy 12:00:00 AM EDT - 07/30/2019 12:00:00 AM EDT [facility] ([facility]) TEMPMHCTelemed 30" Psychotherapy 07/30/2019 12:00:00 A M EDT [facility] ([facility]) Comprehensive medication services, per 15 minutes 07/30/2019 12:00:00 AM EDT - 07/30/2019 12:00:00 AM EDT [facility] ([facility]) Comprehensive medication services, per 15 minutes 07/29/2019 12:00:00 AM EDT [facility] ([facility]) OFFICE OUTPATIENT VISIT 15 MINUTES 07/22 12:00:00 AM EDT - 07/23/2019 12:00:00 AM EDT [facility] ([facility]) OFFICE OUTPATIENT VISIT 15 MINUTES 07/23/2019 12:00:00 AM EDT [facility] ([facility]) TEMPMHCTelemed 30" Psychotherapy 12:00:00 AM EDT - 07/16/2019 12:00:00 AM EDT [facility] ([facility]) TEMPMHCTelemed 30" Psychotherapy 07/16/2019 12:00:00 A M EDT [facility] ([facility]) TEMPMHCTelemed 30" Psychotherapy 12:00:00 AM EDT - 07/01/2019 12:00:00 AM EDT [facility] ([facility]) TEMPMHCTelemed 30" Psychotherapy 07/01/2019 12:00:00 A M EDT [facility] ([facility]) Comprehensive medication services, per 15 minutes 07/01/2019 12:00:00 AM EDT - 07/01/2019 12:00:00 AM EDT [facility] ([facility]) Comprehensive medication services, per 15 minutes 07/01/2019 12:00:00 AM EDT [facility] ([facility]) TEMPMHCTelemed 30" Psychotherapy 020 12:00:00 AM EDT - 06/25/2019 12:00:00 AM EDT [facility] ([facility]) TEMPMHCTelemed 30" Psychotherapy 06/25/2019 12:00:00 A M EDT [facility] ([facility]) THERAPEUTIC PROPHYLACTIC/DX INJECTION SUBQ/IM 05/31/2019 12:00:00 AM EDT - 05/31/2019 12:00:00 AM EDT [facility] ([facility]) THERAPEUTIC PROPHYLACTIC/DX INJECTION SUBQ/IM 05/31/19 20 12:00:00 AM EDT [facility] ([facility]) Comprehensive medication services, per 15 minutes 05/29/2019 12:00:00 AM EDT - 05/29/2019 12:00:00 AM EDT [facility] ([facility]) Comprehensive medication services, per 15 minutes 05/29/2019 12:00:00 AM EDT [facility] ([facility]) Brief Individual Psychotherapy - 30 min 05/09/2019 12:00:00 AM EST - 05/09/2019 12:00:00 AM EST [facility] ([facility]) Brief Individual Psychotherapy - 30 min 05/09/2019 12: 00:00 AM EST [facility] ([facility]) Comprehensive medication services, per 15 minutes 05/01/2019 12:00:00 AM EST - 05/01/2019 12:00:00 AM EST [facility] ([facility]) Comprehensive medication services, per 15 minutes 05/01/2019 12:00:00 AM EST [facility] ([facility]) OFFICE OUTPATIENT VISIT 15 MINUTES 04/24 12:00:00 AM EST - 04/24/2019 12:00:00 AM EST [facility] ([facility]) OFFICE OUTPATIENT VISIT 15 MINUTES 04/24/2019 12:00:00 AM EST [facility] ([facility]) Brief Individual Psychotherapy - 30 min 04/11/2019 12:00:00 AM EST - 04/11/2019 12:00:00 AM EST [facility] ([facility]) Brief Individual Psychotherapy - 30 min 04/11/2019 12: 00:00 AM EST [facility] ([facility]) Comprehensive medication services, per 15 minutes 04/03/2019 12:00:00 AM EST - 04/03/2019 12:00:00 AM EST [facility] ([facility]) Comprehensive medication services, per 15 minutes 04/03/2019 12:00:00 AM EST [facility] ([facility]) SMEAR, WET MOUNT, SALINE/INK 04/01/2019 12:00:00 AM ES T eCW1 ([facility]) Extended Individual Psychotherapy - 45 min 03/28/2019 12:00:00 AM EST - 03/28/2019 12:00:00 AM EST [facility] ([facility]) OFFICE OUTPATIENT VISIT 15 MINUTES 03/27 12:00:00 AM EST - 03/27/2019 12:00:00 AM EST [facility] ([facility]) OFFICE OUTPATIENT VISIT 15 MINUTES 03/27/2019 12:00:00 AM EST [facility] ([facility]) Extended Individual Psychotherapy - 45 min 0 12:00:00 AM EST [facility] ([facility]) Extended Individual Psychotherapy - 45 min 03/14/2019 12:00:00 AM EST - 03/14/2019 12:00:00 AM EST [facility] ([facility]) Extended Individual Psychotherapy - 45 min 9 12:00:00 AM EST [facility] ([facility]) Brief Individual Psychotherapy - 30 min 03/01/2019 12:00:00 AM EST - 03/01/2019 12:00:00 AM EST [facility] ([facility]) Brief Individual Psychotherapy - 30 min 03/01/2019 12: 00:00 AM EST [facility] ([facility]) Results ID Date Data Source [id number] 04/07/2020 08:31:00 AM EST [facility] FAX Name Value Range Interpretation Code Description Data Ce rce(s) Supporting Document(s) WHITE BLOOD COUNT 6.2 K/mm3 4.0-10.0 [facility] 3.81 M/mm3 4.00-5.[address] H[facility]IN 11.4 gm/dL 12.0-16.0 L [facility] HEMATOCRIT 34.1 % 36.0-48.8 L [facility] MEAN CELL VOLUME 89.5 fl 80-96 [facility] MEAN CORPUSCULAR HEMOGLOBIN 29.9 pg 27.0-31.0 [facility] MEAN CORPUSCULAR HGB CONC 33.4 g/dl 32.0-36.0 [facility] RED CELL DISTRIBUTION WIDTH 13.3 % 10.0-14.5 [facility] PLATELET COUNT 270 K/mm3 172-450 [facility] MEAN PLATELET VOLUME 9.4 fl 9.0-13.0 [facility] pital GRAN % 53.2 % 50-80.0 [facility] IG% 0.2 % 0.0-0.2 [facility] LYMPH % 34.8 % 25.0-50.0 [facility] MONO % 9.6 % 2.0-10.0 [facility] EOS % 1.9 % 0-5.0 [facility] BASO % 0.3 % 0.0-2.0 [facility] GRAN # 3.3 K/mm3 2.0-8.00 [facility] IG# 0.0 K/mm3 0.0-0.2 [facility] LYMPH # 2.2 K/mm3 1.0-5.0 [facility] MONO # 0.6 K/mm3 0.10-1.20 [facility] EOS # 0.1 K/mm3 0.0-0.5 [facility] BASO # 0.0 K/mm3 0.0-0.2 [facility] ID Date Data Source [id number] 03/31/2020 08:41:00 AM EST [facility] FAX Name Value Range Interpretation Code Description Data Ce rce(s) Supporting Document(s) WHITE BLOOD COUNT 5.2 K/mm3 4.0-10.0 [facility] RED BLOOD COUNT 3.80 M/mm3 4.00-5.50 L [facility] l HEMOGLOBIN 11.2 gm/dL 12.0-16.0 L [facility] HEMATOCRIT 34.2 % 36.0-48.8 L [facility] MEAN CELL VOLUME 90.0 fl 80-96 [facility] l MEAN CORPUSCULAR HEMOGLOBIN 29.5 pg 27.0-31.0 [facility] MEAN CORPUSCULAR HGB CONC 32.7 g/dl 32.0-36.0 [facility] RED CELL DISTRIBUTION WIDTH 13.6 % 10.0-14.5 [facility] PLATELET COUNT 252 K/mm3 172-450 [facility] MEAN PLATELET VOLUME 9.0 fl 9.0-13.0 [facility] pital GRAN % 54.5 % 50-80.0 [facility] IG% 0.2 % 0.0-0.2 [facility] LYMPH % 34.9 % 25.0-50.0 [facility] MONO % 7.3 % 2.0-10.0 [facility] EOS % 2.7 % 0-5.0 [facility] BASO % 0.4 % 0.0-2.0 [facility] GRAN # 2.8 K/mm3 2.0-8.00 [facility] IG# 0.0 K/mm3 0.0-0.2 [facility] LYMPH # 1.8 K/mm3 1.0-5.0 [facility] MONO # 0.4 K/mm3 0.10-1.20 [facility] EOS # 0.1 K/mm3 0.0-0.5 [facility] BASO # 0.0 K/mm3 0.0-0.2 [facility] ID Date Data Source [id number] 03/24/2020 09:25:00 AM EST [facility] FAX [phone] Name Value Range Interpretation Code Description Data Ce rce(s) Supporting Document(s) VALPROIC ACID (DEPAKOTE) 70.6 mcg/mL 50.0-100.0 [facility] ID Date Data Source [id number] 03/24/2020 08:36:00 AM [facility] FAX [phone] Name Value Range Interpretation Code Description Data Ce e(s) Supporting Document(s) WHITE BLOOD COUNT 5.7 K/mm3 4.0-10.0 [facility]LOOD [facility] 3.61 M/mm3 4.00-5.[address] HEMOGLOBIN 10.8 gm/dL 12.0-16.0 L [facility] HEMATOCRIT 32.5 % 36.0-48.8 L [facility] MEAN CELL VOLUME 90.0 fl 80-96 [facility] MEAN CORPUSCULAR HEMOGLOBIN 29.9 pg 27.0-31.0 [facility] MEAN CORPUSCULAR HGB CONC 33.2 g/dl 32.0-36.0 [facility] RED CELL DISTRIBUTION WIDTH 13.3 % 10.0-14.5 [facility] PLATELET COUNT 258 K/mm3 172-450 [facility] MEAN PLATELET VOLUME 8.9 fl 9.0-13.0 [facility] GRAN % 50.0 % 50-80.0 [facility] IG% 0.5 % 0.0-0.2 H [facility] LYMPH % 38.4 % 25.0-50.0 [facility] MONO % 8.1 % 2.0-10.0 [facility] EOS % 2.6 % 0-5.0 [facility] BASO % 0.4 % 0.0-2.0 [facility] GRAN # 2.8 K/mm3 2.0-8.00 [facility] IG# 0.0 K/mm3 0.0-0.2 [facility] LYMPH # 2.2 K/mm3 1.0-5.0 [facility] MONO # 0.5 K/mm3 0.10-1.20 [facility] EOS # 0.2 K/mm3 0.0-0.5 [facility] BASO # 0.0 K/mm3 0.0-0.2 [facility] ID Date Data Source [id number] 03/05/2020 07:29:00 AM EST [facility] Patient: EVELIO KUNZ Observation Report - [facility]VisitID: [id number] [place] [address] [phone], [facility] Date/Time: 03/04/2020 21:24 Weight:91.6 kg. Height/Length:64 inches. BMI:34.7 PAST HISTORYProblems:Dental Pain.Anemia.Abdominal Pain.Sleep problem.Schizoaffective Disorder.Depression. Additional Surgeries:Cervical sx. Medications:Depakote Oral 500 mg, daily, last dose 03/04/20.Amantadine HCl Oral 100 mg, daily, last dose 03/04/20.Cogentin 1mg, 2x a day, last dose 03/04/20pm.Colace Oral 50 mg, daily, last dose 03/04/20.Ferrous Sulfate Oral 325 mg, daily, last dose 03/04/20.Folic Acid Oral, daily, last dose 03/04/20.Prazosin HCl Oral 1 mg, daily at bedtime, last dose 03/04/20.TraZODone HCl Oral 100 mg, daily, last dose 03/04/20. Allergies:Invega.(rash)Penicillins.(hives). FAMILY HISTORYNegative. No significant family medical history. (Electronically signed by Mikael Curtis 03/05/2020 07:01) Name Value Range Interpretation Code Description Data [facility] Supporting Document(s) ID Date Data Source [id number] 03/04/2020 10:39:00 PM [facility] ital TSYSORDER [id number] Name Value Range Interpretation Code Description Data [facility](s) Supporting Document(s) URINE COLOR. [facility] URINE APPEARANCE CLEAR [facility] l URINE GLUCOSE (UA) NEGATIVE mg/dL NEGATIVE [facility] URINE BILIRUBIN NEGATIVE NEGATIVE [facility] URINE KETONE NEGATIVE mg/dL [facility]IVE [facility] SPECIFIC GRAVITY,URINE >= 1.030 1.001-1.035 [facility] URINE BLOOD TRACE NEGATIVE [facility] PH,URINE 7.0 5.0-9.0 [facility] URINE PROTEIN 1+(30) mg/dL NEGATIVE [facility] URINE UROBILINOGEN NORMAL(0.2-1) mg/dL 0-1 [facility] URINE NITRATE NEGATIVE NEGATIVE [facility] URINE LEUKOCYTE ESTERASE NEGATIVE NEGATIVE [facility] ID Date Data Source [id number] 03/04/2020 10:48:00 PM [facility] spital TSYSORDER [id number] Name Value Range Interpretation Code Description Data Ce rce(s) Supporting Document(s) URINE RBC 3-5 /hpf 0-3 H [facility] URINE WBC 1-3 /hpf 0-5 [facility] URINE EPITHELIAL CELLS 1+ /hpf 0 [facility] ospital URINE BACTERIA 1+ NONE SEEN [facility] URINE MUCUS 2+ NEGATIVE [facility] ID Date Data Source [id number] 03/06/2020 08:09:00 AM EST [facility] Name Value Range Interpretation Code Description Data Ce rce(s) Supporting Document(s) HEP A AB, IGM Negative Negative [facility] HEP B SURFACE ANTIGEN SCREEN Negative Negative [facility] HEP B CORE AB, IGM Negative Negative [facility] HCV ANTIBODY <0.1 0.0-0.9 [facility] INFCE Result Units: s/co ratio Negative: < 0.8 Indeterminate: 0.8 - 0.9 Positive: > 0.9 The CDC recommends that a positive HCV antibody result be followed up with a HCV Nucleic Acid Amplification test ([id number]).Performed at: - [facility] [address] [id number] Director: Vero Austin MD, Phone: [phone] ID Date Data Source [id number] 03/06/2020 08:06:00 AM EST [facility] Name Value [...] with a HCV Nucleic Acid Amplification test ([id number]). ID Date Data Source [id number] 03/04/2020 10:07:00 PM [facility] TSYSORDER [id number] Name Value Range Interpretation Code Description Data Ce rce(s) Supporting Document(s) HIV 1/2 AB NON-REACTIVE [facility] HIV AG NON-REACTIVE [facility] ID Date Data Source [id number] 03/04/2020 10:35:00 PM EST [facility] TSYSORDER [id number] Name Value Range Interpretation Code Description Data Ce rce(s) Supporting Document(s) PARTIAL THROMBOPLASTIN TIME 25.8 SECONDS 21.2-27.3 [facility] ID Date Data Source [id number] 03/04/2020 10:35:00 PM [facility] l TSYSORDER [id number] Name Value Range Interpretation Code Description Data Ce rce(s) Supporting Document(s) PROTHROMBIN TIME (PATIENT) 10.2 SECONDS 9.1-11.6 [facility] INR 0.98 0.87-1.06 [facility] ID Date Data Source [id number] 03/04/2020 10:33:00 PM [facility] l TSYSORDER [id number] Name Value Range Interpretation Code Description Data Ce rce(s) Supporting Document(s) MAGNESIUM 1.9 mg/dL 1.8-2.4 [facility] ID Date Data Source [id number] 03/04/2020 10:33:00 PM [facility] l TSYSORDER [id number] Name Value Range Interpretation Code Description Data Ce rce(s) Supporting Document(s) LIPASE 32 U/L 73-393 L [facility] ID Date Data Source [id number] 03/04/2020 10:33:00 PM [facility] l TSYSORDER [id number] Name Value Range Interpretation Code Description Data Ce rce(s) Supporting Document(s) GLUCOSE 89 mg/dL 74-106 [facility] BLOOD UREA NITROGEN 9 mg/dL 7-18 [facility] ital CREATININE 0.8 mg/dL 0.6-1.0 [facility] SODIUM 140 mmol/L 136-145 [facility] POTASSIUM 4.2 mmol/L 3.5-5.1 [facility] CHLORIDE 102 mmol/L 98-107 [facility] CO2 31 mmol/L 21-32 [facility] CALCIUM 9.1 mg/dL 8.5-10.1 [facility] ANION GAP 7.0 mmol/L 5-12 [facility] GLOMERULAR FILTRATION RATE 85 mL/min [facility] GFR IS CALCULATED IN mL/min/1.73m2 KENYA L FUNCTION: >90MILDLY DECREASED: 60-89MILDY TO MODERATELY DECREASED: 45-59 MODERATELY TO SEVERELY DECREASED: 30-44SEVERELY DECREASED: 15-29RENAL FAILURE: <15 AST 22 U/L 15-37 [facility] ALT 40 U/L 12-78 [facility] ALKALINE PHOSPHATASE 39 U/L 46-116 L [facility] TOTAL BILIRUBIN 0.2 mg/dL 0.2-1.0 [facility] TOTAL PROTEIN 7.3 g/dl 6.4-8.2 [facility] ALBUMIN 3.5 gm/dL 3.4-5.0 [facility] ID Date Data Source [id number] 03/04/2020 10:28:00 PM [facility] al TSYSORDER [id number] Name Value Range Interpretation Code Description Data Ce rce(s) Supporting Document(s) HCG,SERUM NEGATIVE NEGATIVE [facility] False negative results may occur when th e levels of hCG arebelow the sensitivity level of the test. If isstill suspected, a first morning urine specimen should becollected 48hrs later.This test has a sensitivity of 10mIU/mL in serum kzh06dQV/mL in urine. ID Date Data Source [id number] 03/04/2020 10:13:00 PM [facility] l TSYSORDER [id number] Name Value Range Interpretation Code Description Data Ce rce(s) Supporting Document(s) WHITE BLOOD COUNT 8.3 K/mm3 4.0-10.0 [facility] al RED BLOOD COUNT 3.48 M/mm3 4.00-5.50 L [facility] HEMOGLOBIN 10.5 gm/dL 12.0-16.0 [facility] HEMATOCRIT 31.7 % 36.0-48.8 L [facility] MEAN CELL VOLUME 91.1 fl 80-96 [facility] l MEAN CORPUSCULAR HEMOGLOBIN 30.2 pg 27.0-31.0 [facility] MEAN CORPUSCULAR HGB CONC 33.1 g/dl 32.0-36.0 [facility] RED CELL DISTRIBUTION WIDTH 13.3 % 10.0-14.5 [facility] PLATELET COUNT 285 K/mm3 172-450 [facility] MEAN PLATELET VOLUME 9.3 fl 9.0-13.0 [facility] pital GRAN % 52.0 % 50-80.0 [facility] IG% 0.2 % 0.0-0.2 [facility] LYMPH % 37.0 % 25.0-50.0 [facility] MONO % 8.8 % 2.0-10.0 [facility] EOS % 1.8 % 0-5.0 [facility] BASO % 0.2 % 0.0-2.0 [facility] GRAN # 4.3 K/mm3 2.0-8.00 [facility] IG# 0.0 K/mm3 0.0-0.2 [facility] LYMPH # 3.1 K/mm3 1.0-5.0 [facility] MONO # 0.7 K/mm3 0.10-1.20 [facility] EOS # 0.2 K/mm3 0.0-0.5 [facility] BASO # 0.0 K/mm3 0.0-0.2 [facility] ID Date Data Source Test, Urine 01/24/2020 03:46:42 AM EST eCW1 ([facility]) Name Value Range Interpretation Code Description Data Ce rce(s) Supporting Document(s) yes Internal QC Acceptable (Y/N) e CW1 ([facility]) Choriogonadotropin.beta subunit ( test) [Presence] in Urin e neg Test, Urine eCW1 ([facility]) ID Date Data Source URINE CULTURE 12/25/2019 12:00:00 AM EDT W1 ([facility]) Name Value Range Interpretation Code Description Data Ce rce(s) Supporting Document(s) URINE CULTURE eCW1 ([facility]) ID Date Data Source UA URINALYSIS 12/25/2019 12:00:00 AM EDT eCW1 ([facility]) Name Value Range Interpretation Code Description Data Ce rce(s) Supporting Document(s) UA URINALYSIS eCW1 ([facility]) ID Date Data Source [id number] 10/18/2019 12:27:38 PM EDT [facility] Current Problems: Dental caries (ICD-521 .00) (LXP88-R36.9)Tobacco use (ICD- 305.1) (KEL60-F16.0)Dental caries (ICD-521.00) (WFO71-U81.9)DENTAL CARIES EXTENDING INTO PULP (ICD-521.03) (QLA91-M32.63)Physical exam (ICD-V70.0) (ICD10- Z00.00)BMI 32.0-32.9 (ICD-V85.32) (XWD50-Z48.32)Obesity (ICD-278.00) (ICD10- E66.09)Normocytic anemia (ICD-285.9) (TPP55-U77.89)Other seizures (ICD10- G40.89)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 Assisted byMT . Pt was cooperative.NV: Miesah Siddiqui DDS by nicole (10/18/2019 2:28 PM): Tooth Notes and Watches:- Tooth 9 Note: referral has been placed for a crown, but will attempt filling for asthetics only.Miesha Nassar DDS by amdong (01/15/2019 10:26 AM): Assessment & Plan Problems:Added: Dental caries (ICD- 521.00) (WAM07-H29.9) Name Value Range Interpretation Code Description Data Ce rce(s) Supporting Document(s) ID Date Data Source [id number] 10/08/2019 12:30:02 PM EDT [facility] Patient History Medical History:bipolar with schizophrenia - activedepressionanxietySurgical History:cervical biopsy Family History:Diabetes (Mother, Maternal Grandmother)Hypertension (Mother, Maternal Grandmother)Mother has graves disease diagnosed 04/2016Mother had arthritisSocial/Personal History: Smoking Status: current every day smokerDo you vape? NoCurrent Problems: Tobacco use (ICD-305.1) (ADP09-O98.0)Dental caries (ICD-521.00) (ICD10- K02.9)DENTAL CARIES EXTENDING INTO PULP (ICD-521.03) (QXG70-R70.63)Physical exam (ICD-V70.0) (WIP17-Y70.00)BMI 32.0-32.9 (ICD-V85.32) (MMT86-F14.32)Obesity (ICD -278.00) (FVI13-J74.09)Normocytic anemia (ICD-285.9) (EQD49-G51.89)Other seizures (CJV85-X48.89)Other thyrotoxicosis without thyrotoxic crisis or storm (PXC43-E23.80)Dental caries (ICD-521.00) (KVI36-K34.9)Nicotine dependence, cigarettes, in remission (HYN66-O48.211)Moderate cervical dysplasia (ICD10- N87.1)Genital warts (ICD-078.11) (KHZ43-Z47.0)Other hyperlipidemia (ICD10- E78.4)Bipolar 1 disorder (ICD-296.7) (COH09-M48.9)Anxiety disorder (ICD-300.00) (GUC19-D53.9)Problem list reviewed during this update.Current Medications: * [...] PM): ; nicole (Oct 08 2019 1:38PM): [facility](-). CC: none. Reviewed Xrays. Exam: rampant [...] Assessment not SavedDENTAL CARIES EXTENDING INTO PULP (ZUB69-X08.63): Medications:TRAZADONESERTALINEDRISCOLAMANADINEPRAZOSINBENZATROPINECOLACE 100 MG ORAL CAPSULEDOCU SOFT 100 MG ORAL CAPSULEFOLIC ACID 1 MG ORAL TABLETHALOPERIDOL 10 MG ORAL TABLETFE TABS 325 (65 FE) MG ORAL TABLET DELAYED RELEASEFOLIC ACID TABLETRISPERDAL CONSTA 50 MG INTRAMUSCULAR SUSPENSION RECONSTITUTEDAllergies:PENICILLIN (Severe)Orders:Oral Surgery Referral [CPT- 78184] Clinical Visit Summary Declined Name Value Range Interpretation Code Description Data Ce rce(s) Supporting Document(s) ID Date Data Source [id number] 09/02/2019 12:00:00 AM EDT [facility] Name Value Range Interpretation Code Description Data Ce rce(s) Supporting Document(s) SARS CORONAVIRUS 2 RNA [facility] This lab was ordered by [facility] and reported by [facility]. ID Date Data Source [id number] 04/16/2019 12:22:38 PM [facility] Current Problems: Tobacco use (ICD-305.1 ) (EMT26-G95.0)Dental caries (ICD- 521.00) (FSL54-U13.9)DENTAL CARIES EXTENDING INTO PULP (ICD-521.03) (ICD10- K02.63)Physical exam (ICD-V70.0) (RBV66-X04.00)BMI 32.0-32.9 (ICD-V85.32) (CXN96-I96.32)Obesity (ICD-278.00) (BZZ97-M59.09)Normocytic anemia (ICD-285.9) (WYT02-T64.89)Other seizures (GND15-N65.89)Other thyrotoxicosis without thyrotoxic crisis or storm (KLW26-T60.80)Dental caries (ICD-521.00) (ICD10- K02.9)Nicotine dependence, cigarettes, in remission (ZCU78-H11.211)Moderate cervical dysplasia (UAR20-X63.1)Genital warts (ICD-078.11) (ZPM19-X50.0)Other h yperlipidemia (FKT02-J38.4)Bipolar 1 disorder (ICD-296.7) (KQA82-E99.9)Anxiety disorder (ICD-300.00) (VSZ20-J91.9)Current Medications: * TRAZADONE * SERTALINE * DRISCOL [...] DDS) Chart Notes:nicole (Apr 16 2019 1:50PM): [facility], [facility] (-)per pt. CC: none. HurriCaine (Watermelon) Topical, UA infiltration 2 carp. Septocaine (Articaine HCL 4%) X 1:200.000 epi. Operative: #12-F, 11-MFDL BrushandBond on #11-F, light-cured, etch, FuturaBond, light-cured A-3 GrandiOso, light-cured. Excavated with High Speed, Slow Speed and Spoon. Occlusion checked and polished.No complications. POI given. Assisted by:AM. Pt was cooperative. NV: Cheondoism. Miesha Nassar DDS by nicole (04/16/2019 1:50 [...] rce(s) Supporting Document(s) ID Date Data Source [id number] 04/08/2019 07:24:10 AM [facility] Patient History Social/Personal History: Smoking Status: current every day smokerAdvised to Quit/Tobacco Education: YesCurrent Problems: Tobacco use (ICD- 305.1) (ICT48-N22.0)Dental caries (ICD-521.00) (ZNH13-B03.9)DENTAL CARIES EXTENDING INTO PULP (ICD-521.03) (AHL10-E30.63)Physical exam (ICD-V70.0) (ICD10- Z00.00)BMI 32.0-32.9 (ICD-V85.32) (OVY06-J37.32)Obesity (ICD-278.00) (ICD10- E66.09)Normocytic anemia (ICD-285.9) (ELV78-R80.89)Other seizures (ICD10- G40.89)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)Dental caries (ICD-521.00) (VCE74-F72.9)Nicotine dependence, cigarettes, in remission (RAK35-N24.211)Moderate cervical dysplasia (IWH32-R31.1)Genital warts (ICD-078.11) (SSK60-E67.0)Other hyperlipidemia (QZA63-V73.4)Bipolar 1 disorder (ICD-296.7) (OOM27-L74.9)Anxiety disorder (ICD-300.00) (ICD10- F41.9)Current Medications: * TRAZADONE [...] B - (D1110) Prophylaxis, adult (Performed by Pardeep VERALissa) B - (D0274) Bitewings, 4 radiographic images (Performed by Pardeep VERALissa) Treatments:Type - CDT Code - Description T - (D2140) Amalgam-one surface, primary or permanent on Tooth # 28 on Tooth Surface B (Performed by Pardeep VERALissa) Existing:Type - CDT Code - Description[E] Decay On #28 Surface B Chart Notes:nicole (Apr 08 2019 8:15AM): [facility], [facility](-). CC: none.Pt. reported she attempted to remove # 30 but it broke. Reviewed Xrays. Exam: rampant caries detected. OCS: WNL, IO/ EO completed, No significant hard findings upon clinical exam . # 8 and 9 has mobility- pt wants to hang on to it. Pt was cooperative.OHI givenReferral: OS # 30NV:restoBarney RDLissa by nicole (04/08/2019 8:15 AM): ; noah [...] pt.N/V-FillingsReferral to OS for extraction of #30. Pardeep VERALissa by noah (04/08/2019 8:11 AM): Tooth Notes and Watches:- Tooth 9 Note: referral has been placed for a crown, but will attempt filling for asthetics only.Miesha Nassar DDS by claudia (01/15/2019 10:26 AM): Assessment & Plan Problems:Added: Tobacco use (ICD- 305.1) (YRM47-Y68.0)Medications:TRA ZADONESERTALINEDRISCOLAMANADINEPRAZOSINBENZATROPINECOLACE 100 MG ORAL CAPSULEDOCU SOFT 100 MG ORAL CAPSULEFOLIC ACID 1 MG ORAL TABLETHALOPERIDOL 10 MG ORAL TABLETFE TABS 325 (65 FE) MG ORAL TABLET DELAYED RELEASEFOLIC ACID TABLETRISPERDAL CONSTA 50 MG INTRAMUSCULAR SUSPENSION RECONSTITUTEDMedication Changes:Added: * BENZATROPINE* PRAZOSIN* AMANADINE* DRISCOL* SERTALINE* TRAZADONEAllergies:PENICILLIN (Severe)Orders:Oral Surgery Referral [CPT-06088] Clinical Visit Summary DeclinedSmoking, Tobacco or Smoke Exposure StatusSmoke Status: current every day smokerTobacco Use: YesAdv to Quit: YesClinical List ReviewProblem ReviewProblem List was reviewed and/or updated during this visit.Medication Reconciliation & ReviewMedication List was reviewed and/or updated during this visit, including review of any tphm-mcq-ocrciud medications, herbal therapies, and/or supplements.Allergy ReviewAllergy List was reviewed and/or updated during this visit. Name Value Range Interpretation Code Description Data Ce rce(s) Supporting Document(s) ID Date Data Source CHGCTV - CHLAMYDIA, GC & TRICH AMP (Microbiology) 04/01/2019 12:00:00 AM EST eCW1 ([facility]) Name Value Range Interpretation Code Description Data Ce rce(s) Supporting Document(s) NOT DETECTED NEGATIVE Trichomonas vaginalis ( AMP) eCW1 ([facility]) Procedure Social History Code Duration Value Status Description Data Source(s ) Smoking 04/20/2020 12:00:00 AM EST Unknown if ever smoked comp leted Unknown if ever smoked [facility] ([facility]) Smoking 04/16/2020 12:00:00 AM EST Current Smoker completed Curre nt Smoker eCW1 ([facility]) Smoking 04/16/2020 12:00:00 AM EST Current Smoker completed Curre nt Smoker eCW1 ([facility]) Smoking 04/07/2020 12:00:00 AM EST Unknown if ever smoked comp leted Unknown if ever smoked [facility] ([facility]) Smoking 03/30/2020 12:00:00 AM EST Unknown if ever smoked comp leted Unknown if ever smoked [facility] ([facility]) Smoking 03/24/2020 12:00:00 AM EST Unknown if ever smoked comp leted Unknown if ever smoked [facility] ([facility]) Smoking 03/10/2020 12:00:00 AM EST Unknown if ever smoked comp leted Unknown if ever smoked [facility] ([facility]) Smoking 03/03/2020 12:00:00 AM EST Unknown if ever smoked comp leted Unknown if ever smoked [facility] ([facility]) Smoking 02/21/2020 12:00:00 AM EST Current Smoker completed Curre nt Smoker eCW1 ([facility]) Smoking 01/29/2020 12:00:00 AM EST Current Smoker completed Curre nt Smoker eCW1 ([facility]) Smoking 01/27/2020 12:00:00 AM EST Unknown if ever smoked comp leted Unknown if ever smoked [facility] ([facility]) Smoking 01/24/2020 12:00:00 AM EST Current Smoker completed Curre nt Smoker eCW1 ([facility]) Smoking 01/21/2020 12:00:00 AM EST Unknown if ever smoked comp leted Unknown if ever smoked [facility] ([facility]) Smoking 01/16/2020 12:00:00 AM EDT Unknown if ever smoked comp leted Unknown if ever smoked [facility] ([facility]) Smoking 12/30/2019 12:00:00 AM EDT Unknown if ever smoked comp leted Unknown if ever smoked [facility] ([facility]) Smoking 12/26/2019 12:00:00 AM EDT Unknown if ever smoked comp leted Unknown if ever smoked [facility] ([facility]) Smoking 12/25/2019 12:00:00 AM EDT Current Smoker completed Curre nt Smoker eCW1 ([facility]) Smoking 12/25/2019 12:00:00 AM EDT Current Smoker completed Curre nt Smoker eCW1 ([facility]) Smoking 12/23/2019 12:00:00 AM EDT Unknown if ever smoked comp leted Unknown if ever smoked [facility] ([facility]) Smoking 12/20/2019 12:00:00 AM EDT Unknown if ever smoked comp leted Unknown if ever smoked [facility] ([facility]) Smoking 11/27/2019 12:00:00 AM EDT Unknown if ever smoked comp leted Unknown if ever smoked [facility] ([facility]) Smoking 11/21/2019 12:00:00 AM EDT Unknown if ever smoked comp leted Unknown if ever smoked [facility] ([facility]) Smoking 09/19/2019 12:00:00 AM EDT Unknown if ever smoked comp leted Unknown if ever smoked [facility] ([facility]) Smoking 09/09/2019 12:00:00 AM EDT Unknown if ever smoked comp leted Unknown if ever smoked [facility] ([facility]) Smoking 09/04/2019 12:00:00 AM EDT Current Smoker completed Curre nt Smoker eCW1 ([facility]) Smoking 09/04/2019 12:00:00 AM EDT Current Smoker completed Curre nt Smoker eCW1 ([facility]) Smoking 09/04/2019 12:00:00 AM EDT Current Smoker completed Curre nt Smoker eCW1 ([facility]) Smoking 09/04/2019 12:00:00 AM EDT Current Smoker completed Curre nt Smoker eCW1 ([facility]) Smoking 09/04/2019 12:00:00 AM EDT Current Smoker completed Curre nt Smoker eCW1 ([facility]) Smoking 08/14/2019 12:00:00 AM EDT Unknown if ever smoked comp leted Unknown if ever smoked [facility] ([facility]) Smoking 07/30/2019 12:00:00 AM EDT Unknown if ever smoked comp leted Unknown if ever smoked [facility] ([facility]) Smoking 07/23/2019 12:00:00 AM EDT Unknown if ever smoked comp leted Unknown if ever smoked [facility] ([facility]) Smoking 07/22/2019 12:00:00 AM EDT Current Smoker completed Curre nt Smoker eCW1 ([facility]) Smoking 07/16/2019 12:00:00 AM EDT Unknown if ever smoked comp leted Unknown if ever smoked [facility] ([facility]) Smoking 07/01/2019 12:00:00 AM EDT Unknown if ever smoked comp leted Unknown if ever smoked [facility] ([facility]) Smoking 06/25/2019 12:00:00 AM EDT Unknown if ever smoked comp leted Unknown if ever smoked [facility] ([facility]) Smoking 05/31/2019 12:00:00 AM EDT Unknown if ever smoked comp leted Unknown if ever smoked [facility] ([facility]) Smoking 05/29/2019 12:00:00 AM EDT Unknown if ever smoked comp leted Unknown if ever smoked [facility] ([facility]) Smoking 05/09/2019 12:00:00 AM EST Unknown if ever smoked comp leted Unknown if ever smoked [facility] ([facility]) Smoking 05/01/2019 12:00:00 AM EST Unknown if ever smoked comp leted Unknown if ever smoked [facility] ([facility]) Smoking 04/24/2019 12:00:00 AM EST Unknown if ever smoked comp leted Unknown if ever smoked [facility] ([facility]) Smoking 04/11/2019 12:00:00 AM EST Unknown if ever smoked comp leted Unknown if ever smoked [facility] ([facility]) Smoking 04/03/2019 12:00:00 AM EST Unknown if ever smoked comp leted Unknown if ever smoked [facility] ([facility]) Smoking 03/28/2019 12:00:00 AM EST Unknown if ever smoked comp leted Unknown if ever smoked [facility] ([facility]) Smoking 03/27/2019 12:00:00 AM EST Unknown if ever smoked comp leted Unknown if ever smoked [facility] ([facility]) Smoking 03/14/2019 12:00:00 AM EST Unknown if ever smoked comp leted Unknown if ever smoked [facility] ([facility]) Smoking 03/01/2019 12:00:00 AM EST Unknown if ever smoked comp leted Unknown if ever smoked [facility] ([facility]) Vital Signs ID Date Data Source UNK Name Value Range Interpretation Code Description Data Source(s) Diastolic blood pressure 82 mm[Hg] 82 mm[Hg] eCW1 ([facility]) Systolic blood pressure 140 mm[Hg] 140 mm[Hg] e CW1 ([facility]) Body temperature 97.1 [degF] 97.1 [degF] eCW1 ( [facility]) Respiratory rate 18 /min 18 /min eCW1 ([facility]) Heart rate 121 /min 121 /min eCW1 ([facility]) Body mass index (BMI) [Ratio] 35.87 kg/m2 35.87 kg/m2 eCW1 ([facility]) Body height 64 [in_i] 64 [in_i] eCW1 ([facility]) Body weight 209 [lb_av] 209 [lb_av] eCW1 ([facility]) Diastolic blood pressure 0 mm[Hg] Normal (applies to non-numeric results) 0 mm[Hg] [facility] ([facility]) Systolic blood pressure 0 mm[Hg] Normal (applies t o non-numeric results) 0 mm[Hg] [facility] ([facility]) Body mass index (BMI) [Ratio] 0.00 kg/m2 No rmal (applies to non-numeric results) 0.00 kg/m2 [facility] ([facility]) Body weight Measured 0.00 lbs Normal (applies to n on-numeric results) [facility] Body height 0.00 in Normal (applies to non-numeric resu lts) 0.00 in [facility] ([facility]) Diastolic blood pressure 0 mm[Hg] Normal (applies to non-numeric results) 0 mm[Hg] [facility] ([facility]) Systolic blood pressure 0 mm[Hg] Normal (applies t o non-numeric results) 0 mm[Hg] [facility] ([facility]) Body mass index (BMI) [Ratio] 0.00 kg/m2 No rmal (applies to non-numeric results) 0.00 kg/m2 [facility] ([facility]) Body weight Measured 0.00 lbs Normal (applies to n on-numeric results) 0.00 lbs [facility]) Body height 0.00 in Normal (applies to non-numeric resu lts) 0.00 in [facility] ([facility]) Diastolic blood pressure 0 mm[Hg] Normal (applies to non-numeric results) 0 mm[Hg] [facility] ([facility]) Systolic blood pressure 0 mm[Hg] Normal (applies t o non-numeric results) 0 mm[Hg] [facility] ([facility]) Body mass index (BMI) [Ratio] 0.00 kg/m2 No rmal (applies to non-numeric results) 0.00 kg/m2 [facility] ([facility]) Body weight Measured 0.00 lbs Normal (applies to n on-numeric results) 0.00 lbs [facility] ([facility]) Body height 0.00 in Normal (applies to non-numeric resu lts) 0.00 in [facility] ([facility]) Diastolic blood pressure 62 mm[Hg] 62 mm[Hg] W1 ([facility]) Systolic blood pressure 102 mm[Hg] 102 mm[Hg] e CW1 ([facility]) Body mass index (BMI) [Ratio] 35.36 kg/m2 35.36 kg/m2 W1 ([facility]) Body height 64 [in_i] 64 [in_i] eCW1 ([facility]) Body weight 93.44 kg 93.44 kg W1 ([facility]) Body weight 206 [lb_av] 206 [lb_av] eCW1 ([facility]) Systolic blood pressure 0 mm[Hg] Normal (applies t o non-numeric results) 0 mm[Hg] [facility] ([facility]) Body mass index (BMI) [Ratio] 0.00 kg/m2 No rmal (applies to non-numeric results) 0.00 kg/m2 [facility] ([facility]) Body weight Measured 0.00 lbs Normal (applies to n on-numeric results) 0.00 lbs [facility] ([facility]) Body height 0.00 in Normal (applies to non-numeric resu lts) 0.00 in [facility] ([facility]) Diastolic blood pressure 0 mm[Hg] Normal (applies to non-numeric results) 0 mm[Hg] Accumedic ([facility]) Diastolic blood pressure mm[Hg] eCW1 ([facility]) Systolic blood pressure 115 mm[Hg] 115 mm[Hg] e CW1 ([facility]) Body temperature 97.4 [degF] 97.4 [degF] eCW1 ( [facility]) Respiratory rate 18 /min 18 /min eCW1 ([facility]) Heart rate 99 /min 99 /min eCW1 ([facility]) Body mass index (BMI) [Ratio] 35.08 kg/m2 35.08 kg/m2 eCW1 ([facility]) Body height 64 [in_i] 64 [in_i] eCW1 ([facility]) Body weight 204.4 [lb_av] 204.4 [lb_av] eCW1 ([facility]) Diastolic blood pressure 60 mm[Hg] 60 mm[Hg] eCW1 ([facility]) Systolic blood pressure 110 mm[Hg] 110 mm[Hg] e CW1 ([facility]) Body temperature 97.6 [degF] 97.6 [degF] eCW1 ( [facility]) Respiratory rate 18 /min 18 /min eCW1 ([facility]) Heart rate 80 /min 80 /min eCW1 ([facility]) Body mass index (BMI) [Ratio] 35.36 kg/m2 35.36 kg/m2 eCW1 ([facility]) Body height 64 [in_i] 64 [in_i] eCW1 ([facility]) Body weight 206 [lb_av] 206 [lb_av] eCW1 ([facility]) Diastolic blood pressure 0 mm[Hg] Normal (applies to non-numeric results) 0 mm[Hg] Accumedic ([facility]) Systolic blood pressure 0 mm[Hg] Normal (applies t o non-numeric results) 0 mm[Hg] [facility] ([facility]) Body mass index (BMI) [Ratio] 0.00 kg/m2 No rmal (applies to non-numeric results) 0.00 kg/m2 Acc[facility] ([facility]) Body weight Measured 0.00 lbs Normal (applies to n on-numeric results) 0.00 lbs [facility] ([facility]) Body height 0.00 in Normal (applies to non-numeric resu lts) 0.00 in [facility]) Body weight 89.813 kg 89.813 kg MEDENT ([facility], ) Body mass index (BMI) [Ratio] 34.0 kg/m2 34.0 k g/m2 [facility] Body weight 198.00 [lb_av] 198.00 [lb_av] MEDEN T ([facility], ) Body height 64 [in_i] 64 [in_i] [facility] ([facility], ) 5'4" Diastolic blood pressure 0 mm[Hg] Normal (applies to non-numeric results) 0 mm[Hg] [facility] ([facility]) Systolic blood pressure 0 mm[Hg] Normal (applies t o non-numeric results) 0 mm[Hg] [facility] ([facility]) Body mass index (BMI) [Ratio] 0.00 kg/m2 No rmal (applies to non-numeric results) 0.00 kg/m2 [facility] ([facility]) Body weight Measured 0.00 lbs Normal (applies to n on-numeric results) 0.00 lbs [facility] ([facility]) Body height 0.00 in Normal (applies to non-numeric resu lts) 0.00 in [facility] ([facility]) Diastolic blood pressure 68 mm[Hg] 68 mm[Hg] eCW1 ([facility]) Systolic blood pressure 122 mm[Hg] 122 mm[Hg] e CW1 ([facility]) Body temperature 98.1 [degF] 98.1 [degF] eCW1 ( [facility]) Respiratory rate 18 /min 18 /min eCW1 ([facility]) Heart rate 88 /min 88 /min eCW1 ([facility]) Body mass index (BMI) [Ratio] 33.74 kg/m2 33.74 kg/m2 eCW1 ([facility]) Body height 64 [in_i] 64 [in_i] eCW1 ([facility]) Body weight 196.6 [lb_av] 196.6 [lb_av] eCW1 ([facility]) Body weight 89.813 kg 89.813 kg MEDENT ([facility], ) Body mass index (BMI) [Ratio] 34.0 kg/m2 34.0 k g/m2 [facility]) Body weight 198.00 [lb_av] 198.00 [lb_av] MEDEN T ([facility], ) Body height 64 [in_i] 64 [in_i] MEDENT ([facility], ) 5'4" Diastolic blood pressure 0 mm[Hg] Normal (applies to non-numeric results) 0 mm[Hg] [facility] ([facility]) Systolic blood pressure 0 mm[Hg] Normal (applies t o non-numeric results) 0 mm[Hg] [facility] ([facility]) Body mass index (BMI) [Ratio] 0.00 kg/m2 No rmal (applies to non-numeric results) 0.00 kg/m2 [facility] ([facility]) Body weight Measured 0.00 lbs Normal (applies to n on-numeric results) 0.00 lbs [facility] ([facility]) Body height 0.00 in Normal (applies to non-numeric resu lts) 0.00 in [facility] ([facility]) Diastolic blood pressure 80 mm[Hg] 80 mm[Hg] eCW1 ([facility]) Systolic blood pressure 122 mm[Hg] 122 mm[Hg] e CW1 ([facility]) Body temperature 99 [degF] 99 [degF] eCW1 ([facility]) Respiratory rate 20 /min 20 /min eCW1 ([facility]) Heart rate 100 /min 100 /min eCW1 ([facility]) Body mass index (BMI) [Ratio] 33.85 kg/m2 33.85 kg/m2 eCW1 ([facility]) Body height 64 [in_i] 64 [in_i] eCW1 ([facility]) Body weight 197.2 [lb_av] 197.2 [lb_av] eCW1 ([facility]) Diastolic blood pressure 74 mm[Hg] 74 mm[Hg] eCW1 ([facility]) Systolic blood pressure 120 mm[Hg] 120 mm[Hg] e CW1 ([facility]) Body temperature 98.3 [degF] 98.3 [degF] eCW1 ( [facility]) Respiratory rate 20 /min 20 /min eCW1 ([facility]) Heart rate 94 /min 94 /min eCW1 ([facility]) Body mass index (BMI) [Ratio] 34.02 kg/m2 34.02 kg/m2 eCW1 ([facility]) Body height 64 [in_us] 64 [in_us] eCW1 ([facility]) Body weight Measured 198.2 [lb_av] 198.2 [lb_av ] eCW1 ([facility]) Diastolic blood pressure 76 mm[Hg] 76 mm[Hg] eCW1 ([facility]) Systolic blood pressure 120 mm[Hg] 120 mm[Hg] e CW1 ([facility]) Body mass index (BMI) [Ratio] 33.12 kg/m2 33.12 kg/m2 eCW1 ([facility]) Body height 64 [in_us] 64 [in_us] eCW1 ([facility]) Body weight Measured 193 [lb_av] 193 [lb_av] eC W1 ([facility]) Diastolic blood pressure 70 mm[Hg] 70 mm[Hg] eCW1 ([facility]) Systolic blood pressure 120 mm[Hg] 120 mm[Hg] e CW1 ([facility]) Body temperature 97.3 [degF] 97.3 [degF] eCW1 ( [facility]) Respiratory rate 20 /min 20 /min eCW1 ([facility]) Heart rate 88 /min 88 /min eCW1 ([facility]) Body mass index (BMI) [Ratio] 32.78 kg/m2 32.78 kg/m2 eCW1 ([facility]) Body height 64 [in_us] 64 [in_us] eCW1 ([facility]) Body weight Measured 191 [lb_av] 191 [lb_av] eC W1 ([facility]) Diastolic blood pressure 0 mm[Hg] Normal (applies to non-numeric results) 0 mm[Hg] [facility] ([facility]) Systolic blood pressure 0 mm[Hg] Normal (applies t o non-numeric results) 0 mm[Hg] [facility] ([facility]) Body mass index (BMI) [Ratio] 0.00 kg/m2 No rmal (applies to non-numeric results) 0.00 kg/m2 [facility] ([facility]) Body weight Measured 0.00 lbs Normal (applies to n on-numeric results) 0.00 lbs [facility] ([facility]) Body height 0.00 in Normal (applies to non-numeric resu lts) 0.00 in [facility] ([facility]) ID Date Data Source [id number] 01/31/2020 11:26:20 PM [facility] Name Value Range Interpretation Code Description Data Source(s) TRANSFER FROM [facility] Patient Treatment Plan of Care Planned Activity Planned Date Details Description Data Source (s) Cholecalciferol 1000 UNT Oral Tablet 08/21/2019 12:00:00 AM EDT eCW1 ([facility]) Cholecalciferol 1000 UNT Oral Tablet 08/21/2019 12:00:00 AM EDT eCW1 ([facility]) Cholecalciferol 1000 UNT Oral Tablet 08/21/2019 12:00:00 AM EDT eCW1 ([facility]) Cholecalciferol 1000 UNT Oral Tablet 08/21/2019 12:00:00 AM EDT eCW1 ([facility]) Fluconazole 150 MG Oral Tablet 05/13/2019 12:00:00 AM EST eCW1 ([facility]) Fluconazole 150 MG Oral Tablet 04/01/2019 12:00:00 AM EST eCW1 ([facility]) Clotrimazole 10 MG/ML Topical Cream 04/01/2019 12:00:00 AM EST eCW1 ([facility]) Nicotine 4 MG/ACTUAT Inhalant Solution [Nicotrol] 03/29/2019 12: 00:00 AM EST eCW1 ([facility])
[2020-04-20 23:20] LABS: HEMATOCRIT 36.1 % (36.0-47.0); HEMOGLOBIN 11.9 g/dl (12.0-15.5); MEAN CORPUSCULAR HEMOGLOBIN 29.9 pg (27.0-33.0); MEAN CORPUSCULAR VOLUME 90.7 fl (80.0-96.0); PLATELET COUNT, AUTOMATED 295 10^3/uL (150-450); RED BLOOD COUNT 3.98 10^6/uL (4.00-5.40); WHITE BLOOD COUNT 6.5 10^3/uL (4.0-10.0)
[2020-04-20 23:46] LABS: AMPHETAMINES LEVEL URINE NEGATIVE (NEGATIVE); BARBITURATES URINE NEGATIVE (NEGATIVE); BENZODIAZEPINES URINE NEGATIVE (NEGATIVE); CANNABINOIDS URINE NEGATIVE (NEGATIVE); COCAINE METABOLITE URINE NEGATIVE (NEGATIVE); METHADONE URINE NEGATIVE (NEGATIVE); OPIATES URINE NEGATIVE (NEGATIVE); PHENCYCLIDINE URINE NEGATIVE (NEGATIVE)
[2020-04-20 23:58] LABS: ACETAMINOPHEN LEVEL < 2.0 UG/ML (10.0-30.0); ALBUMIN 4.2 GM/DL (3.2-5.2); ALT/SGPT 65 U/L (12-78); BILIRUBIN,DIRECT 0.1 MG/DL (0.0-0.2); BILIRUBIN,TOTAL 0.3 MG/DL (0.2-1.0); BLOOD UREA NITROGEN 13 MG/DL (7-18); CALCIUM LEVEL 9.6 MG/DL (8.5-10.1); CARBON DIOXIDE LEVEL 27 MEQ/L (21-32); CHLORIDE LEVEL 105 MEQ/L (98-107); CREATININE FOR GFR 0.62 MG/DL (0.55-1.30); ETHYL ALCOHOL (ETHANOL) < 0.003 % (0.000-0.010); GLOMERULAR FILTRATION RATE > 60.0 (>60); GLUCOSE, FASTING 83 MG/DL (70-100); HCG, SERUM QUALITATIVE NEGATIVE (NEGATIVE); POTASSIUM SERUM 3.7 MEQ/L (3.5-5.1); SALICYLATE LEVEL 3.5 MG/DL (5.0-30.0); SODIUM LEVEL 140 MEQ/L (136-145)
[2020-04-21] MEDS ORDERED: CLOZ100T2 PO (01:37)
[2020-04-21] MEDS ORDERED: DIVA250T67 PO (01:37)
[2020-04-21] MEDS ORDERED: LACT20EL PO (01:37)
[2020-04-21] MEDS ORDERED: MIRA1POW3 PO (01:37)
[2020-04-21] MEDS ORDERED: ROZE8TAB16 PO (02:07)
[2020-04-21] MEDS ORDERED: FLUO10TA2 PO (02:08)
[2020-04-21 02:53] LABS: RSV AMPLIFICATION NEGATIVE (NEGATIVE)
[2020-04-21] MEDS ORDERED: METAL LOCK LOOP XX ONE (05:34)
--- NOTE | 2020-04-21 05:36 | ECGEPIP ---
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
[2020-04-21] MEDS ORDERED: FLUoxetine 10 MG CAP PO ONE (08:15)
[2020-04-21] MEDS ORDERED: FOLIC ACID 1 MG TAB PO ONE (08:15)
[2020-04-21] MEDS ORDERED: DOCUSATE SODIUM 100MG CAPSULE PO ONE (08:15)
[2020-04-21] MEDS ORDERED: OLANZapine 10 MG TAB PO ONE (08:30)
[2020-04-21] MEDS ORDERED: OLANZapine INTRAMUSCULAR 10MG VIAL IM ONE (10:45)
[2020-04-21] MEDS ORDERED: LORazepam 2 MG/ML VIAL IM ONE (10:45)
[2020-04-21] MEDS: VITAMIN D 1,000 INTERNATIONAL UNITS TABLET PO SCH (11:00)
[2020-04-21] MEDS: FERROUS SULFATE 325MG TAB PO SCH (11:00)
[2020-04-21] MEDS ORDERED: RAMELTEON 8 MG TAB (ROZEREM) PO ONE (18:45)
[2020-04-21] MEDS ORDERED: cloZAPine 100 MG TAB (S0136) PO ONE (18:45)
[2020-04-21] MEDS ORDERED: DIVALPROEX 250 MG TAB PO ONE (18:45)
[2020-04-21] MEDS ORDERED: AMANTADINE 100MG TABLET PO ONE (18:45)
[2020-04-21] MEDS ORDERED: BENZTROPINE 1 MG TAB PO ONE (18:45)
[2020-04-21 21:24] LABS: BASO # 0.1 10^3/uL (0.0-0.2); BASO % 0.8 % (0.0-1.0); EOS # 0.1 10^3/uL (0.0-0.5); EOS % 1.8 % (0.0-3.0); HEMATOCRIT 37.7 % (36.0-47.0); HEMOGLOBIN 12.2 g/dl (12.0-15.5); LYMPH # 2.5 10^3/uL (1.5-5.0); MEAN CORPUSCULAR HEMOGLOBIN 29.3 pg (27.0-33.0); MEAN CORPUSCULAR HGB CONC 32.4 g/dl (32.0-36.5); MEAN CORPUSCULAR VOLUME 90.6 fl (80.0-96.0); MONO # 0.6 10^3/uL (0.0-0.8); MONO % 9.1 % (0.0-5.0); PLATELET COUNT, AUTOMATED 291 10^3/uL (150-450); RED BLOOD COUNT 4.16 10^6/uL (4.00-5.40); WHITE BLOOD COUNT 6.3 10^3/uL (4.0-10.0)
[2020-04-22] MEDS: FERROUS SULFATE 325MG TAB PO SCH (09:00)
[2020-04-22] MEDS: VITAMIN D 1,000 INTERNATIONAL UNITS TABLET PO SCH (09:00)
[2020-04-22 22:12] LABS: BLOOD UREA NITROGEN 17 MG/DL (7-18); CALCIUM LEVEL 9.4 MG/DL (8.5-10.1); CARBON DIOXIDE LEVEL 26 MEQ/L (21-32); CHLORIDE LEVEL 108 MEQ/L (98-107); CREATININE FOR GFR 0.72 MG/DL (0.55-1.30); GLOMERULAR FILTRATION RATE > 60.0 (>60); GLUCOSE, FASTING 72 MG/DL (70-100); POTASSIUM SERUM 3.8 MEQ/L (3.5-5.1); SODIUM LEVEL 143 MEQ/L (136-145)
[2020-04-23] MEDS: VITAMIN D 1,000 INTERNATIONAL UNITS TABLET PO SCH (09:00)
[2020-04-23] MEDS: FERROUS SULFATE 325MG TAB PO SCH (09:00)
[2020-04-23 09:43] LABS: RSV AMPLIFICATION NEGATIVE (NEGATIVE)
[2020-04-23 14:04] LABS: APPEARANCE, URINE HAZY (CLEAR); BACTERIA, URINE AUTO NEGATIVE (NEGATIVE); BILIRUBIN, URINE AUTO NEGATIVE (NEGATIVE); BLOOD, URINE BLOOD 1+ (NEGATIVE); COLOR, URINE YELLOW (YELLOW); GLUCOSE, URINE (UA) AUTO NEGATIVE (NEGATIVE); KETONE, URINE AUTO 2+ mg/dL (NEGATIVE); LEUKOCYTE ESTERASE, URINE AUTO NEGATIVE (NEGATIVE); MUCUS, URINE LARGE (NEGATIVE); NITRITE, URINE AUTO NEGATIVE (NEGATIVE); PROTEIN, URINE AUTO 2+ mg/dL (NEGATIVE); RBC, URINE AUTO 7 /HPF (0-3); SPECIFIC GRAVITY URINE AUTO 1.032 (1.002-1.035); SQUAMOUS EPITHELIAL CELL UR AU 1 /HPF (0-6); WBC, URINE AUTO 3 /HPF (0-3)
[2020-04-24 00:58] VITALS: BP 124/87
== END 2020-04-24 01:36 ==
LOC: M ED 21:26
DX: F23 Brief psychotic disorder (principal); Z88.0 Allergy status to penicillin; Z88.8 Allergy status to other drugs, medicaments and biological substances; F17.210 Nicotine dependence, cigarettes, uncomplicated
CPT/HCPCS: 36415; 80048; 80076; 80143; 80307; 81001; 82077; 84443; 84703; 85025; 85027; 87631; 93005; 99285; J2060

== ENCOUNTER 2020-05-14 16:41 | Emergency (ER) | payer OTHER ==
[~2020-05-14] VITALS: Ht 162.6 cm; Wt 89.1 kg
[~2020-05-14 16:41] MED LIST changes: +FLUO10TA2 PO; +MIRA1POW3 PO; +ROZE8TAB16 PO
--- OUTSIDE RECORDS SUMMARY | 2020-05-14 16:48 | CCD ---
Author Author Jim Estella Ashley Organization Unknown Address [address] [place] [phone] Phone Care Team Providers Care Athlete Marketing Agent Name Role Phone Ashley Fernandez PCP Allergies, Adverse Reactions, Alerts Concept Allergy Name Reaction Severity Onset Date Status Documentation Date Phone Number Npid Taxonomy Code Taxonomy Desc Author Last Name Author Michele rst Name Concept Type [id number] nkda Active 01/10/2018 RXNORM Problem List Concept Problem Description Status Start Date Created Date Resolv ed Date Snomed Code F25.9 Schizoaffective Disorder Active 12/18/2017 12/18/2017 Medications Rx Norm Medication Route Route Concept Start Date Stop Date Dosage Aniekt quency Duration Formula Strength Dosage Form Dosage Form Code Dosage Description Medication Id Account Npid Author First Name Author Last Name Taxonomy Code Taxonomy Desc Phone Number [id number] prazosin 08/27/2019 1 mg capsule 72761 11 [id number] Ashley Fernandez [id number] Nurse Practitioner [phone] [id number] trazodone 11/04/2019 at bedtime 50 mg tablet as needed 24613 892714 [id number] Ashley Fernandez [id number] Nurse Practitioner [id number] 163612 Clozaril by mouth [id number] 04/08/2020 05/06/2020 at bedtime 28 1 00 mg tablet 54099 104881 [id number] Ashley Fernandez [id number] Nurse Maik luna [phone] [id number] Depakote by mouth [id number] 04/08/2020 05/08/2020 at bedtime 30 250 mg tablet,delayed release (DR/EC) 78983 035017 [id number] Rosalino Fernandez [id number] Nurse Practitioner [phone] [id number] Prozac by mouth [id number] 04/10/2020 05/08/2020 every morning 30 10 mg capsule 27882 [id number] Ashleyvivian Fernandez [id number] N urse Practitioner [phone] Haldol Decanoate intramuscularly 10/10/20182020 every four weeks 28 100 mg/mL solution 81930 220943 [id number] Ashley Jurgen quang [id number] Nurse Practitioner [phone] Social History Social History Element Description Concept Effective Date Smoking Status Unknown if ever smoked [id number] Immunizations No Data in Section Vital Signs No Data in Section Procedures Date Concept Id Description Targeted Site Concept Targeted Site Concept Type 04/21/2020 29752 E/M Level 3 - Established Patient CPT Patient has no history of implantable de vices Encounters Encounter Start Date End Date Encounter Type Description Diagnosis Di agnosis Desc Location Author First Name Author Last Name Npid Taxonomy Cod e Taxonomy Desc Phone Number Location Addr1 Location Addr2 Location [facility] Location Sta te Location [facility] [id number] 04/21/2020 04/21/2020 58353 E/M Level 3 - Established [place] F25.9 Schizoaffective disorder, unspecified [facility] Jim Ashley [phone] [id number] Nurse Practitioner [phone] [address] [address] Plan of Treatment No Data in Section Lab Results No Data in Section Instructions No Data in Section Insurance Providers Insurance Id Policy Effective Date Policy Thru Date Company N ilda [id number] 2017 [id number]
--- OUTSIDE RECORDS SUMMARY | 2020-05-14 16:48 | CCD | Summary of Care ---
Author Author [facility] Organization [facility] Address Unknown Phone Unavailable Care Team Providers Care Supervisor Assembling Name Role Phone Branden Dalton MD PCP Encounter Details Care Team Description Date Type Department 04/21/2020 [facility] TRANSFER CE NTER Encounter [address] [place] [address] Allergies Comments Active Allergy Reactions Severity Noted Date Penicillins 09/11/2016 documented as of this encounter (statuses as of 05/06/2020) Medications End Date Status Medication Sig Dispensed Refills Start Date Active benzocaine (ORAJEL) 20 % Please apply 1 each 0 GEL to affected 9 painful area of mouth up to four times daily documented as of this encounter (statuses as of 05/06/2020) Active Problems Problem Noted Date Schizoaffective disorder 04/04/2018 PTSD (post-traumatic stress disorder) 04/04/2018 Anxiety 04/04/2018 Depression 04/04/2018 Schizoaffective disorder, bipolar type 10/05/2016 Suicidal ideation 09/11/2016 documented as of this encounter (statuses as of 05/06/2020) Social History Date Tobacco Use Types Packs/Day Years Used Never Assessed Sex Assigned at Date Recorded Not on file documented as of this encounter Last Filed Vital Signs Not on filedocumented in this encounter Plan of Treatment Health Maintenance Due Date Last Done Comments MMR Vaccines (1 of - 1991 Standard series) Varicella Vaccines (1 of 1991 2 - 2-dose childhood series) DTaP,Tdap,and Td Vaccines 1997 (1 - Tdap) Influenza Vaccine 12/19/2019 Pneumococcal Vaccine: 65+ 2055 Years (1 of - PPSV23) HIV Screening Completed 09/11/2016 HIB [...]
--- OUTSIDE RECORDS SUMMARY | 2020-05-14 16:48 | CCD ---
Author Author [facility] Organization [facility] Address Unknown Phone Unavailable Care Team Providers Care Hand Router Operator Name Role Phone Lauren Zambrano Unavailable PROBLEMS Type Condition ICD9-CM Code [id number] Code Onset Dates Condition S tatus W/U Status Risk SNOMED Code Notes Problem Vitamin D deficiency E55.9 Active confirmed 15195192 Problem Paranoid schizophrenia, chronic condition F20.0 Active confirmed 56700857 Problem Tinea versicolor B36.0 Active confirmed 564 71937 Problem Candidiasis of breast B37.89 Active confirmed 44478406 Problem Infrequent menses N91.5 Active confirmed 52 186795 Problem Obesity E66.9 Active confirmed 295350590 Problem Body mass index 33.0-33.9, adult Z68.33 Active confirmed 379695498 Problem Obesity (BMI 30-39.9) 278.00 Active confirmed 284685561 Problem History of anemia Z86.2 Active confirmed 27 5174900 Problem Paranoid schizophrenia F20.0 Active confirmed 27637222 Problem Tobacco dependence F17.200 Active confirmed 36040541 Problem Night terrors, adult F51.4 Active confirmed 41890671 Problem 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 Ac tive confirmed 740400000 Problem Schizoaffective disorder, chronic condition F25.9 Active confirmed 634158125 Problem Irregular menses N92.6 Active confirmed 801 60232 Problem Pica in adults F50.89 Active confirmed 01642 003 Problem Cigarette nicotine dependence without complication F17.210 Active confirmed 67529131 Problem 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 Code:[address]-65) facial droopness Drug All ergy Active Penicillin (For Allergies Use Only) Unsure of Reaction Demarcus perez Allergy Active ENCOUNTERS from 1990 to 2020-04-19 Encounter Location Date Provider Diagnosis [facility] Resident [address] [place] [address] Mar, Lauren Zambrano Paranoid schizophrenia, chromium plater sherif condition F20.0 and Tobacco dependence F17.200 IMMUNIZATIONS No Information SOCIAL HISTORY Tobacco Use: Social History Observation Description Date Details (start date - stop date) Current Smoker Sex Assigned At : Social History Observation Description Sex Assigned At Unknown Audit Question Answer Notes Total Score: 0 Interpretation: Alcohol Education Language: Question Answer Notes Languages spoken: Slovak Sexual Hx: Question Answer Notes Had sex [...] FOR REFERRAL No Information VITAL SIGNS Weight 209 lbs Mar, Height 64 in Mar, BMI 35.87 kg/m2 Mar, Heart Rate 121 /min Mar, Respiratory Rate 18 /min Mar, Temperature 97.1 degrees Fahrenheit Mar, Oximetry 99 Mar, Blood pressure systolic 140 mm Hg Mar, Blood pressure diastolic 82 mm Hg Mar, MEDICATIONS Medication SIG (Take, Route, Frequency, Duration) [...] Information RESULTS No Results REASON FOR VISIT 4-6 week follow up Follow up schizoaffective disorder MEDICAL (GENERAL) HISTORY Type Description Date Medical [...] Notes Treatment Notes Treatm ent Clinical Notes Mar, Paranoid schizophrenia, chronic condition (ICD-1 0 - F20.0) Patient has extreme paranoia during clinic visit, it was able to call up her transitional care facility and was able to speak with [facility] who has been taking care of Mrs. Soria. She states that worry has been compliant with all her medications and that she follows up with psychiatry every week. Psych recently changed her psychiatric medications (clozapine has been increased to 100 and Depakote has been decreased to 250 and Prozac was added to her regimen). She also states that worry has been more clingy and whiny since being at the transitional care facility. Patient experiences sadness and decreased interest in her day-to-day activities and I suspect that Prozac has not reached its full effect yet as it was started on 04/09/2020. During this visit. Patient does not demonstrate any suicidal ideation or intentions of self-harm or harm to others. She demonstrates extreme paranoia and notably talking in third person as well as muttering as if she's talking to someone who is not present in the room. When asked about any visual or auditory hallucinations, she denied. During this clinic visit, he had extreme paranoia and thinks that were keeping her captive and holding her against her will. My preceptor/attending (Dr. Sanchez) was able to contact her transitional care unit and speak with them and they have agreed upon calling the police and have them arrange transport to [facility] for psychiatric evaluation. It is recommended that she follows up with psychiatry next week (confirmed. Psych appointment with Ashley couch next 04/21/2020). Mar, Tobacco dependence (ICD-10 - F17.200) Patient states that she's been smoking a lot more lately but is unable to give me a specific amount. In terms of packs per day. We will readdress this issue once patient's psychiatric evaluation has been complete and she is stable on psychiatric medication regimen. PLAN OF TREATMENT Medication Medication Name Sig Start Date Stop Date Colace 100 MG 1 capsule as needed Orally Once a day for 30 Treatment Notes Assessment Notes Clinical Notes Paranoid schizophrenia, chronic condition Patient has extreme paranoia during clinic visit, it was able to call up her transitional care facility and was able to speak with [facility] who has been taking care of Mrs. Soria. She states that worry has been compliant with all her medications and that she follows up with psychiatry every week. Psych recently changed her psychiatric medications (clozapine has been increased to 100 and Depakote has been decreased to 250 and Prozac was added to her regimen). She also states that worry has been more clingy and whiny since being at the transitional care facility. Patient experiences sadness and decreased interest in her day-to-day activities and I suspect that Prozac has not reached its full effect yet as it was started on 04/09/2020. During this visit. Patient does not demonstrate any suicidal ideati on or intentions of self-harm or harm to others. She demonstrates extreme paranoia and notably talking in third person as well as muttering as if she's talking to someone who is not present in the room. When asked about any visual or auditory hallucinations, she denied. During this clinic visit, he had extreme paranoia and thinks that were keeping her captive and holding her against her will. My preceptor/attending (Dr. Sanchez) was able to contact her transitional care unit and speak with them and they have agreed upon calling the police and have them arrange transport to [facility] for psychiatric evaluation.It is recommended that she follows up with psychiatry next week (confirmed. Psych appointment with Ashley couch next 04/21/2020). Tobacco dependence Patient states that she's been smoking a lot more lately but is unable to give me a specific amount. In terms of packs per day. We will readdress this issue once patient's psychiatric evaluation has been complete and she is stable on psychiatric medication regimen. Treatment Notes Test Name Order Date CBC with Differential 2020-04-17 Comprehensive Metabolic Profile (CMP) 2020-04-17 HEMOGLOBIN A1c 2020-04-17 LIPID PANEL (CARDIAC RISK) 2020-04-17 UA URINALYSIS 2020-04-17 Next Appt Details Provider Name:Juju Lazoc, 2020-04-27 03:00:00 PM, [address] [place], [phone], Insurance Providers Payer Name Payer Address Payer Phone Insured Name Patient Relati onship to Insured Coverage Start Date Coverage End Date [facility] [employer] [facility] [address] [place] [phone] EVELIO KUNZ self
--- OUTSIDE RECORDS SUMMARY | 2020-05-14 16:48 | CCD ---
Author Author Estella Sultana Organization Unknown Address [address] [place] [phone] Phone Care Team Providers Care Tangled Yarn Worker Name Role Phone Meliza Sultana PCP Allergies, Adverse Reactions, Alerts Concept Allergy Name Reaction Severity Onset Date Status Documentation Date Phone Number Npid Taxonomy Code Taxonomy Desc Author Last Name Author Michele rst Name Concept Type [id number] nkda Active 01/10/2018 RXNORM Problem List Concept [...] Name Taxonomy Code Taxonomy Desc Phone Number [phone] Rozerem by mouth [id number] 03/10/2020 05/03/2020 at bedtime 30 8 mg tablet 64262 308460 [phone] Johny Gomez [id number] Nurse Prac titioner [phone] Clozaril by mouth [id number] 04/08/2020 05/06/2020 at bedtime 28 1 00 mg tablet 52360 567670 [id number] Ashley Fernandez [id number] Nurse Maik luna [phone] 1055442 Depakote by mouth [id number] 04/08/2020 05/08/2020 at bedtime 30 250 mg tablet,delayed release (DR/EC) 12326 659161 [phone] Rosalino Fernandez [id number] Nurse Practitioner [phone] Prozac by mouth B64662 04/10/2020 05/08/2020 every morning 30 10 mg capsule 78854 447061 [id number] Ashley Fernandez [id number] N urse Practitioner [phone] 804981 Zyprexa by mouth [id number] 04/20/2020 05/20/2020 at bedtime 30 10 m g tablet 75243 218304 [id number] Ashley Fernandez [id number] Nurse Pra ctitioner [phone] 499659 amantadine HCl 06/05/2019 05/25/2020 30 100 mg caps ule 60881 487089 [phone] Ashley Fernandez [id number] Nurse Practitioner 751624 1559 960913 benztropine 07/23/2019 05/25/2020 30 1 mg tablet 95084 397629 [id number] Ashley Fernandez [id number] Nurse Practitioner [id number] [phone] Social History Social History Element Description Concept Effective Date Smoking Status Unknown if ever smoked [id number] Immunizations No Data in Section Vital Signs No Data in Section Procedures Date Concept Id Description Targeted Site Concept Targeted Site Concept Type 05/01/2020 75103 Brief Individual Psychotherapy - 30 min CPT Patient has no history of implantable de vices Encounters Encounter Start Date End Date Encounter Type Description Diagnosis Di agnosis Desc Location Author First Name Author Last Name Npid Taxonomy Cod e Taxonomy Desc Phone Number Location Addr1 Location Addr2 Location [facility] Location [facility] Location [facility] [id number] 05/01/2020 05/01/2020 05619 Brief Individual Psychoth erapy - 30 min F25.9 Schizoaffective disorder, unspecified [facility] [id number] Faculty Criminal Justice [phone] [address] Vora [address] [place] [phone] Plan of Treatment No Data in Section Lab Results No Data in Section Instructions No Data in Section Insurance Providers Insurance Id Policy Effective Date Policy Thru Date Company N ilda [id number] 2017 [id number]
--- OUTSIDE RECORDS SUMMARY | 2020-05-14 16:48 | CCD ---
Author Author Estella Sultana Organization Unknown Address [address] [place] [address] Phone Care Team Providers Care Burr Mill Operator Name Role Phone Meliza Sultana PCP Allergies, Adverse Reactions, Alerts Concept Allergy Name Reaction Severity Onset Date Status Documentation Date Phone Number Npid Taxonomy Code Taxonomy Desc Author Last Name Author Michele rst Name Concept Type 353165 nkda Active 01/10/2018 RXNORM Problem List Concept [...] Name Taxonomy Code Taxonomy Desc Phone Number [phone] Depakote by mouth [id number] 04/08/2020 05/08/2020 at bedtime 30 250 mg tablet,delayed release (DR/EC) 03808 312212 [phone] Rosalino Fernandez [id number] Nurse Practitioner [phone] 579895 Prozac by mouth C67610 04/10/2020 05/08/2020 every morning 30 10 mg capsule 40468 335072 [id number] Ashley Fernandez [id number] N lonniee Practitioner [phone] 508949 Zyprexa by mouth H99301 04/20/2020 05/20/2020 at bedtime 30 10 m g tablet 41931 437760 [id number] Ashley Fernandez [id number] Nurse Pra ctitioner [phone] 351093 amantadine HCl 06/05/2019 05/25/2020 30 100 mg caps ule 05556 919273 [id number] Ashlye Fernandez [id number] Nurse Practitioner 727676 5551 415980 benztropine 07/23/2019 05/25/2020 30 1 mg tablet 87484 044091 [id number] Ashley Fernandez [id number] Nurse Practitioner [phone] [phone] Social History Social History Element Description Concept Effective Date Smoking Status Unknown if ever smoked [id number] Immunizations No Data in Section Vital Signs No Data in Section Procedures Date Concept Id Description Targeted Site Concept Targeted Site Concept Type 05/08/2020 63130 Brief Individual Psychotherapy - 30 min CPT Patient has no history of implantable de vices Encounters Encounter Start Date End Date Encounter Type Description Diagnosis Di agnosis Desc Location Author First Name Author Last Name Npid Taxonomy Cod e Taxonomy Desc Phone Number Location Addr1 Location Addr2 Location City Location Sta te Location Zip [id number] 05/08/2020 05/08/2020 71517 Brief Individual Psychoth erapy - 30 min F25.9 Schizoaffective disorder, unspecified [facility] [phone] [id number] Diamond Mounter [phone] [address] Vora [address] [place] [phone] Plan of Treatment No Data in Section Lab Results No Data in Section Instructions No Data in Section Insurance Providers Insurance Id Policy Effective Date Policy Thru Date Company N ilda [id number] 2017 [id number]
--- OUTSIDE RECORDS SUMMARY | 2020-05-14 16:48 | CCD ---
Author Author [facility] Organization [facility] Address Unknown Phone Unavailable Care Team Providers Care Fiberglass Grinder Name Role Phone Lauren Zambrano Unavailable PROBLEMS Type Condition ICD9-CM Code [id number] Code Onset Dates Condition S tatus W/U Status Risk SNOMED Code Notes Problem Vitamin D deficiency E55.9 Active confirmed 67861111 Problem Paranoid schizophrenia, chronic condition F20.0 Active confirmed 78400271 Problem Tinea versicolor B36.0 Active confirmed 564 51162 Problem Candidiasis of breast B37.89 Active confirmed 31352583 Problem Infrequent menses N91.5 Active confirmed 52 436318 Problem Obesity E66.9 Active confirmed 109602133 Problem Body mass index 33.0-33.9, adult Z68.33 Active confirmed 241173225 Problem Obesity (BMI 30-39.9) 278.00 Active confirmed 899452383 Problem History of anemia Z86.2 Active confirmed 27 5957006 Problem Paranoid schizophrenia F20.0 Active confirmed 76297042 Problem Tobacco dependence F17.200 Active confirmed 55109278 Problem Night terrors, adult F51.4 Active confirmed 85310202 Problem 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 Ac tive confirmed 659810720 Problem Schizoaffective disorder, chronic condition F25.9 Active confirmed 625935014 Problem Irregular menses N92.6 Active confirmed 801 18586 Problem Pica in adults F50.89 Active confirmed 51828 003 Problem Cigarette nicotine dependence without complication F17.210 Active confirmed 95070388 Problem 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 Code:[address]-35) facial droopness Drug All ergy Active Penicillin (For Allergies Use Only) Unsure of Reaction Demarcus perez Allergy Active ENCOUNTERS from 1990 to 2020-04-25 Encounter Location Date Provider Diagnosis [facility] [address] [place] [phone] Apr, Lauren Zambrano IMMUNIZATIONS No Information SOCIAL HISTORY Tobacco Use: Social History Observation Description Date Details (start date - stop date) Current Smoker Sex Assigned At : Social History Observation Description Sex Assigned At Unknown Audit Question Answer Notes Total Score: 0 Interpretation: Alcohol Education Language: Question Answer Notes Languages spoken: Greenlandic Sexual Hx: Question Answer Notes Had sex [...] Information RESULTS No Results REASON FOR VISIT [facility] MEDICAL (GENERAL) HISTORY Type Description Date Medical [...] for 30 Next Appt Details Provider Name:Juju Barrientos, 2020-04-27 03:00:00 PM, [address] [place], [address], Insurance Providers Payer Name Payer Address Payer Phone Insured Name Patient Relati onship to Insured Coverage Start Date Coverage End Date [facility] [address] [facility] [phone] EVELIO KUNZ self
--- OUTSIDE RECORDS SUMMARY | 2020-05-14 16:48 | CCD ---
Author Author Estella Youssef Organization Unknown Address [address] [place] [phone] Phone Care Team Providers Care Systems Security Consultant Name Role Phone Sharla Youssef PCP Allergies, Adverse Reactions, Alerts Concept Allergy Name Reaction Severity Onset Date Status Documentation Date Phone Number Npid Taxonomy Code Taxonomy Desc Author Last Name Author Michele rst Name Concept Type 605525 nkda Active 01/10/2018 RXNORM Problem List Concept [...] Name Taxonomy Code Taxonomy Desc Phone Number [phone] prazosin 08/27/2019 1 mg capsule 33333 11 0431 [phone] Ashley Fernandez [id number] Nurse Practitioner [phone] 333357 trazodone 11/04/2019 at bedtime 50 mg tablet as needed 94903 842189 [phone] Ashley Fernandez [id number] Nurse Practitioner 571193 8261 345223 Clozaril by mouth X81868 04/08/2020 05/06/2020 at bedtime 28 1 00 mg tablet 46876 499914 [id number] Ashley Fernandez [id number] Nurse Maik luna [phone] 1069133 Depakote by mouth B83625 04/08/2020 05/08/2020 at bedtime 30 250 mg tablet,delayed release (DR/EC) 98838 835394 [phone] Rosalino Fernandez [id number] Nurse Practitioner [phone] 019520 Prozac by mouth P90974 04/10/2020 05/08/2020 every morning 30 10 mg capsule 55354 262175 [id number] Ashley Fernandez [id number] N urse Practitioner [phone] 1703066 Haldol Decanoate intramuscularly 10/10/20182020 every four weeks 28 100 mg/mL solution 81594 927716 [id number] Ashley del rio [id number] Nurse Practitioner [phone] Social History Social History Element Description Concept Effective Date Smoking Status Unknown if ever smoked [id number] 27777935 Immunizations No Data in Section Vital Signs No Data in Section Procedures Date Concept Id Description Targeted Site Concept Targeted Site Concept Type 04/20/2020 39088 Extended Individual Psychotherapy - 45 min CPT Patient has no history of implantable de vices Encounters Encounter Start Date End Date Encounter Type Description Diagnosis Di agnosis Desc Location Author First Name Author Last Name Npid Taxonomy Cod e Taxonomy Desc Phone Number Location Addr1 Location Addr2 Location [facility] Location Sta te Location [facility] [id number] 04/20/2020 04/20/2020 86934 Extended Individual Psych otherapy - 45 min F25.9 Schizoaffective disorder, unspecified [facility] Mikael Magdaleno [phone] [id number] Roving Winder [phone] [address] [address] Plan of Treatment No Data in Section Lab Results No Data in Section Instructions No Data in Section Insurance Providers Insurance Id Policy Effective Date Policy Thru Date Company N ilda [id number] 2017 [id number]
[2020-05-14 18:49] LABS: HEMATOCRIT 35.7 % (36.0-47.0); HEMOGLOBIN 11.1 g/dl (12.0-15.5); MEAN CORPUSCULAR HEMOGLOBIN 29.1 pg (27.0-33.0); MEAN CORPUSCULAR HGB CONC 31.1 g/dl (32.0-36.5); MEAN CORPUSCULAR VOLUME 93.5 fl (80.0-96.0); PLATELET COUNT, AUTOMATED 251 10^3/uL (150-450); RED BLOOD COUNT 3.82 10^6/uL (4.00-5.40); WHITE BLOOD COUNT 6.4 10^3/uL (4.0-10.0)
[2020-05-14 18:53] LABS: HCG, SERUM QUALITATIVE NEGATIVE (NEGATIVE)
[2020-05-14 19:02] LABS: ACETAMINOPHEN LEVEL < 2.0 UG/ML (10.0-30.0); ALBUMIN 3.6 GM/DL (3.2-5.2); ALT/SGPT 105 U/L (12-78); AMPHETAMINES LEVEL URINE NEGATIVE (NEGATIVE); BARBITURATES URINE NEGATIVE (NEGATIVE); BENZODIAZEPINES URINE NEGATIVE (NEGATIVE); BILIRUBIN,DIRECT < 0.1 MG/DL (0.0-0.2); BLOOD UREA NITROGEN 4 MG/DL (7-18); CALCIUM LEVEL 9.4 MG/DL (8.5-10.1); CANNABINOIDS URINE NEGATIVE (NEGATIVE); CARBON DIOXIDE LEVEL 33 MEQ/L (21-32); CHLORIDE LEVEL 108 MEQ/L (98-107); COCAINE METABOLITE URINE NEGATIVE (NEGATIVE); CREATININE FOR GFR 0.67 MG/DL (0.55-1.30); ETHYL ALCOHOL (ETHANOL) < 0.003 % (0.000-0.010); GLOMERULAR FILTRATION RATE > 60.0 (>60); GLUCOSE, FASTING 107 MG/DL (70-100); METHADONE URINE NEGATIVE (NEGATIVE); OPIATES URINE NEGATIVE (NEGATIVE); PHENCYCLIDINE URINE NEGATIVE (NEGATIVE); POTASSIUM SERUM 3.8 MEQ/L (3.5-5.1); SALICYLATE LEVEL < 1.7 MG/DL (5.0-30.0); SODIUM LEVEL 142 MEQ/L (136-145); THYROID STIMULATING HORMONE 0.603 uIU/ML (0.358-3.740); TOTAL PROTEIN 7.1 GM/DL (6.4-8.2)
[2020-05-14 19:09] LABS: BILIRUBIN,TOTAL < 0.1 MG/DL (0.2-1.0)
[2020-05-14] MEDS ORDERED: LORazepam 2 MG TAB PO STA (19:12)
[2020-05-14 20:33] LABS: RSV AMPLIFICATION NEGATIVE (NEGATIVE)
[2020-05-14 23:32] VITALS: BP 127/68
--- NOTE | 2020-05-15 02:25 | ECGEPIP ---
[facility] - ED Test Date: 2020-05-14 Pat Name: EVELIO KUNZ Department: Room: - Gender: Female Court Security Officer: : 1990 Requested By: LUISITO Zurita Order Number: [id number] Reading MD: Luisito Armenta Measurements Intervals [place] Rate: 98 P: 72 [place]: 128 QRS: 73 QRSD: 86 T: 45 QT: 356 QTc: 454 Interpretive Statements Normal sinus rhythm Electronically Signed on 05-15-2020 2:25:36 EST by Luisito Armenta
== END 2020-05-14 23:38 ==
LOC: M ED 16:41
DX: F25.0 Schizoaffective disorder, bipolar type (principal); F23 Brief psychotic disorder; F17.200 Nicotine dependence, unspecified, uncomplicated; F12.10 Cannabis abuse, uncomplicated; J45.909 Unspecified asthma, uncomplicated; Z88.0 Allergy status to penicillin; Z88.8 Allergy status to other drugs, medicaments and biological substances

== ENCOUNTER → 2020-08-13 | Outpatient (REF) | payer OTHER ==
[~2020-08-13] MED LIST changes: -PEG1POW PO; +POLY17PO18 PO; -VITA-122 PO; +VITA-168 PO
[2020-08-13 15:13] LABS: HEMATOCRIT 36.1 % (36.0-47.0); HEMOGLOBIN 11.6 g/dl (12.0-15.5); MEAN CORPUSCULAR HEMOGLOBIN 30.3 pg (27.0-33.0); MEAN CORPUSCULAR HGB CONC 32.1 g/dl (32.0-36.5); MEAN CORPUSCULAR VOLUME 94.3 fl (80.0-96.0); PLATELET COUNT, AUTOMATED 299 10^3/uL (150-450); RED BLOOD COUNT 3.83 10^6/uL (4.00-5.40); WHITE BLOOD COUNT 8.6 10^3/uL (4.0-10.0)
[2020-08-13 15:33] LABS: HEMOGLOBIN A1c 5.5 %
[2020-08-13 15:41] LABS: ALBUMIN 3.9 GM/DL (3.2-5.2); ALT/SGPT 30 U/L (12-78); BILIRUBIN,TOTAL 0.2 MG/DL (0.2-1.0); BLOOD UREA NITROGEN 15 MG/DL (7-18); CALCIUM LEVEL 9.9 MG/DL (8.5-10.1); CARBON DIOXIDE LEVEL 28 MEQ/L (21-32); CHLORIDE LEVEL 105 MEQ/L (98-107); CHOLESTEROL LEVEL 179 MG/DL (<200); CHOLESTEROL RISK RATIO 2.712 (<5); CREATININE FOR GFR 0.63 MG/DL (0.55-1.30); FREE T4 0.96 NG/DL (0.76-1.46); GLOMERULAR FILTRATION RATE > 60.0 (>60); GLUCOSE, FASTING 113 MG/DL (70-100); HDL CHOLESTEROL 66 MG/DL (>40); LDL CHOLESTEROL 94 MG/DL (<100); NON-HDL-C 113 MG/DL; POTASSIUM SERUM 4.4 MEQ/L (3.5-5.1); SODIUM LEVEL 137 MEQ/L (136-145); THYROID STIMULATING HORMONE 0.109 uIU/ML (0.358-3.740); TOTAL PROTEIN 7.7 GM/DL (6.4-8.2); TRIGLYCERIDES LEVEL 96 MG/DL (<150)
== END ==
LOC: M SFHCPLAZ 14:01
DX: R53.83 Other fatigue (principal); R73.03 Prediabetes; Z13.220 Encounter for screening for lipoid disorders

== ENCOUNTER → 2020-09-09 | Outpatient (REF) | payer OTHER ==
[~2020-09-09] MED LIST changes: -DOXY100C37 PO; +DOXY1CAP62 PO; +ERGO500029; -VITA50005
[2020-09-09 17:08] LABS: BASO % 0.5 % (0.0-1.0); EOS # 0.2 10^3/uL (0.0-0.5); EOS % 3.3 % (0.0-3.0); HEMATOCRIT 36.6 % (36.0-47.0); HEMOGLOBIN 11.6 g/dl (12.0-15.5); LYMPH # 2.2 10^3/uL (1.5-5.0); LYMPH % 36.9 % (24.0-44.0); MEAN CORPUSCULAR HEMOGLOBIN 29.9 pg (27.0-33.0); MEAN CORPUSCULAR HGB CONC 31.7 g/dl (32.0-36.5); MEAN CORPUSCULAR VOLUME 94.3 fl (80.0-96.0); MONO # 0.5 10^3/uL (0.0-0.8); MONO % 7.9 % (2.0-8.0); NEUTROPHILS # 3.1 10^3/uL (1.5-8.5); NEUTROPHILS % 51.1 % (36.0-66.0); PLATELET COUNT, AUTOMATED 290 10^3/uL (150-450); RED BLOOD COUNT 3.88 10^6/uL (4.00-5.40); WHITE BLOOD COUNT 6.1 10^3/uL (4.0-10.0)
== END ==
LOC: M LABDRAWC 15:55
PROVIDERS: ATTEND Nurse Practitioner Psychiatric/Mental Health
DX: F25.0 Schizoaffective disorder, bipolar type (principal)

== ENCOUNTER 2020-09-21 21:40 | Emergency (ER) | payer OTHER ==
[~2020-09-21] VITALS: Ht 162.6 cm; Wt 91.0 kg
[~2020-09-21 21:40] MED LIST changes: -OLAN10TA2 PO; -OLAN15TA PO; +OLAN15TA13 PO; +OLAN1TAB16 PO; +OLAN1TAB20 PO; -OLAN5TAB PO
[2020-09-21] MEDS ORDERED: ACET-910 PO (21:52)
[2020-09-21] MEDS ORDERED: CLIN150C15 PO (21:52)
[2020-09-22] MEDS ORDERED: KETO10TAB PO (01:54)
[2020-09-22] MEDS ORDERED: LIDO2SO SSP (01:54)
[2020-09-22] MEDS ORDERED: KETOROLAC TROMETHAMINE 10 MG TAB PO ONE (01:55)
[2020-09-22] MEDS ORDERED: LIDOCAINE VISCOUS 2% SOLN 15ML UDC SSP ONE (01:55)
[2020-09-22 02:12] VITALS: BP 134/87
== END 2020-09-22 02:34 | disposition home or self-care (01) ==
LOC: M ED 21:40
DX: K04.7 Periapical abscess without sinus (principal); F25.0 Schizoaffective disorder, bipolar type; E78.5 Hyperlipidemia, unspecified; F17.210 Nicotine dependence, cigarettes, uncomplicated; Z79.2 Long term (current) use of antibiotics; Z79.899 Other long term (current) drug therapy; Z88.0 Allergy status to penicillin; Z88.8 Allergy status to other drugs, medicaments and biological substances; Z86.69 Personal history of other diseases of the nervous system and sense organs

== ENCOUNTER → 2020-10-06 | Outpatient (REF) | payer OTHER ==
[~2020-10-06] MED LIST changes: +ACET-910 PO; +CLIN150C15 PO; +KETO10TAB PO; +LIDO2SO SSP
[2020-10-06 17:30] LABS: WHITE BLOOD COUNT 8.4 10^3/uL (4.0-10.0)
[2020-10-06 17:31] LABS: BASO # 0.1 10^3/uL (0.0-0.2); BASO % 0.6 % (0.0-1.0); EOS # 0.4 10^3/uL (0.0-0.5); EOS % 4.5 % (0.0-3.0); LYMPH # 3.1 10^3/uL (1.5-5.0); LYMPH % 36.9 % (24.0-44.0); MEAN CORPUSCULAR HGB CONC 31.6 g/dl (32.0-36.5); MONO # 0.6 10^3/uL (0.0-0.8); MONO % 7.6 % (2.0-8.0); NEUTROPHILS # 4.2 10^3/uL (1.5-8.5); NEUTROPHILS % 50.2 % (36.0-66.0); PLATELET COUNT, AUTOMATED 287 10^3/uL (150-450)
== END ==
LOC: M LABDRAWC 11:08
PROVIDERS: ATTEND Nurse Practitioner Psychiatric/Mental Health
DX: F25.0 Schizoaffective disorder, bipolar type (principal)

== ENCOUNTER → 2020-10-19 | Outpatient (REF) | payer OTHER ==
[~2020-10-19] MED LIST changes: -CEFD1CAP8; -CEFD1CAP8 PO; +CEFD300C41; +CEFD300C41 PO; -CLIN150C15 PO; +CLIN150C17 PO; +COMMENTS; +DOXY-443 PO; -DOXY1CAP62 PO; +FLUO20CA22 PO; -HALO5TA PO; +HALO5TAB33 PO; +MUPI2OI TOP; +OMEP40CA5 PO; +ONDA-83 PO; +ZOFR4TAB16 PO
[2020-10-19 11:44] LABS: HEMATOCRIT 37.2 % (36.0-47.0); HEMOGLOBIN 11.8 g/dl (12.0-15.5); MEAN CORPUSCULAR HEMOGLOBIN 29.8 pg (27.0-33.0); MEAN CORPUSCULAR HGB CONC 31.7 g/dl (32.0-36.5); MEAN CORPUSCULAR VOLUME 93.9 fl (80.0-96.0); PLATELET COUNT, AUTOMATED 246 10^3/uL (150-450); RED BLOOD COUNT 3.96 10^6/uL (4.00-5.40); WHITE BLOOD COUNT 6.9 10^3/uL (4.0-10.0)
[2020-10-19 12:15] LABS: FREE T4 0.85 NG/DL (0.76-1.46); PERCENT SATURATION 35.4 % (13.2-45.0); THYROID STIMULATING HORMONE 1.38 uIU/ML (0.358-3.740); TOTAL 25(OH) VITAMIN D 19.6 NG/ML (30.0-100.0)
[2020-10-19 12:16] LABS: FOLATE 20.7 NG/ML; THYROID PEROXIDASE ANTIBODY 90.1 U/ML (<60.0)
== END ==
LOC: M SFHCCLAY 09:14
PROVIDERS: ATTEND Family Medicine
DX: R53.83 Other fatigue (principal)

== ENCOUNTER → 2020-10-22 | Outpatient (REF) | payer OTHER ==
[~2020-10-22] MED LIST changes: +CEFD1CAP8; +CEFD1CAP8 PO; -CEFD300C41; -CEFD300C41 PO; -COMMENTS; -DOXY-443 PO; +DOXY1CAP62 PO; -FLUO20CA22 PO; +HALO5TA PO; -HALO5TAB33 PO; -MUPI2OI TOP; -OMEP40CA5 PO; -ONDA-83 PO; -ZOFR4TAB16 PO
== END ==
LOC: M SFHCWAGY 12:21
PROVIDERS: ATTEND Nurse Practitioner Women's Health
DX: Z12.4 Encounter for screening for malignant neoplasm of cervix (principal)

== ENCOUNTER 2020-12-02 20:40 | Emergency (ER) | payer OTHER ==
[~2020-12-02] VITALS: Ht 162.6 cm; Wt 100.0 kg
[2020-12-02 22:42] LABS: BASO % 0.5 % (0.0-1.0); EOS # 0.3 10^3/uL (0.0-0.5); EOS % 3.6 % (0.0-3.0); HEMATOCRIT 33.9 % (36.0-47.0); HEMOGLOBIN 11.1 g/dl (12.0-15.5); LYMPH # 2.7 10^3/uL (1.5-5.0); LYMPH % 35.7 % (24.0-44.0); MEAN CORPUSCULAR HGB CONC 32.7 g/dl (32.0-36.5); MEAN CORPUSCULAR VOLUME 91.6 fl (80.0-96.0); MONO # 0.6 10^3/uL (0.0-0.8); MONO % 7.8 % (2.0-8.0); NEUTROPHILS # 3.9 10^3/uL (1.5-8.5); NEUTROPHILS % 52.1 % (36.0-66.0); PLATELET COUNT, AUTOMATED 253 10^3/uL (150-450); WHITE BLOOD COUNT 7.5 10^3/uL (4.0-10.0)
[2020-12-02 22:43] LABS: URINE PREG TEST NEGATIVE (NEGATIVE)
[2020-12-02 22:58] LABS: GLUCOSE, URINE (UA) MANUAL NEGATIVE (NEGATIVE); KETONE, URINE MANUAL NEGATIVE (NEGATIVE)
[2020-12-02 22:59] LABS: BILIRUBIN, URINE MANUAL NEGATIVE (NEGATIVE); SQUAMOUS EPITHELIAL CELL URINE MOD AMOUNT /hpf (SMALL AMT); UROBILINOGEN, URINE MANUAL NORMAL (NORMAL)
[2020-12-02 23:00] LABS: BACTERIA, URINE NONE SEEN; HYALINE CAST, URINE NONE SEEN /lpf (0-1)
[2020-12-02 23:11] LABS: ALBUMIN 3.8 GM/DL (3.2-5.2); ALT/SGPT 48 U/L (12-78); BILIRUBIN,DIRECT < 0.1 MG/DL (0.0-0.2); BILIRUBIN,TOTAL 0.4 MG/DL (0.2-1.0); BLOOD UREA NITROGEN 11 MG/DL (7-18); CALCIUM LEVEL 9.6 MG/DL (8.5-10.1); CARBON DIOXIDE LEVEL 28 MEQ/L (21-32); CHLORIDE LEVEL 107 MEQ/L (98-107); CREATININE FOR GFR 0.58 MG/DL (0.55-1.30); GLOMERULAR FILTRATION RATE > 60.0 (>60); GLUCOSE, FASTING 84 MG/DL (70-100); LIPASE 43 U/L (73-393); POTASSIUM SERUM 3.9 MEQ/L (3.5-5.1); SODIUM LEVEL 141 MEQ/L (136-145); TOTAL PROTEIN 7.4 GM/DL (6.4-8.2)
[2020-12-03] MEDS ORDERED: METOCLOPRAMIDE INJ 10MG/2ML VIAL (J2765 PER 1) IV ONE (02:05)
[2020-12-03] MEDS ORDERED: NS 1,000 ML IV ONE (02:05)
--- NOTE | 2020-12-03 02:50 | REPVR ---
PROCEDURE INFORMATION: Exam: CT Head Without Contrast Exam date and time: 12/03/2020 2:04 AM Age: 30 years old Clinical indication: Pain; Headache not specified; Additional info: Headache, vomiting TECHNIQUE: Imaging protocol: Computed tomography of the head without contrast. Radiation optimization: All CT scans at this facility use at least one of these dose optimization techniques: automated exposure control; mA and/or kV adjustment per patient size (includes targeted exams where dose is matched to clinical indication); or iterative reconstruction. COMPARISON: CT Head without contrast 02/07/2020 1:12 AM FINDINGS: Images through the base of the brain and posterior fossa, including the brainstem are slightly degraded by beam hardening artifacts from the adjacent calvarium. There is no evidence of acute intracranial hemorrhage, extra axial fluid collection or hematoma. There is no midline shift or herniation. The ventricles are not dilated. No evidence of pneumocephalus. No CT findings are seen at the current time to suggest changes of acute territorial vascular infarction. Note is made however, that CT changes, may lag clinical findings in acute CVA. If clinically indicated, consideration could be given to MRI with diffusion weighted imaging, due to its greater sensitivity, for early detection of acute ischemic change. Incidental intracranial calcifications are noted. No pericranial scalp hematoma is seen. No acute cranial vault fracture is seen. Incidentally noted is incomplete posterior arch of C1 vertebrae as anatomic variant. No fluid is seen within the visualized paranasal sinuses or mastoid air cells. The visualized middle ear cavities are not opacified. There is slight prominence of the visualized nasopharyngeal adenoids which could be correlated and followed up clinically for any significance. IMPRESSION: No evidence of acute territorial major vessel infarct, mass effect, or hemorrhage. Other incidental findings discussed above. Electronically signed by: Kvng Frazier On 12/03/2020 02:50:04 AM
[2020-12-03 03:00] VITALS: BP 119/56
[2020-12-03] MEDS ORDERED: MUPI2OI TOP (03:11)
[2020-12-03] MEDS ORDERED: ZOFR4TAB16 PO (03:12)
== END 2020-12-03 03:30 | disposition home or self-care (01) ==
LOC: M ED 20:40
DX: R51.9 Headache, unspecified (principal); L73.9 Follicular disorder, unspecified; F33.9 Major depressive disorder, recurrent, unspecified; F25.9 Schizoaffective disorder, unspecified; G40.89 Other seizures; Z79.899 Other long term (current) drug therapy; Z88.0 Allergy status to penicillin; Z88.8 Allergy status to other drugs, medicaments and biological substances; F17.210 Nicotine dependence, cigarettes, uncomplicated
CPT/HCPCS: 70450; 80048; 80076; 81000; 83690; 84703; 85025; 87086; 96361; 96374; 99284; J2765

== ENCOUNTER 2020-12-05 21:55 | Emergency (ER) | payer OTHER ==
[~2020-12-05] VITALS: Ht 162.6 cm; Wt 89.1 kg
[~2020-12-05 21:55] MED LIST changes: +MUPI2OI TOP; +ZOFR4TAB16 PO
[2020-12-05 23:21] LABS: HEMATOCRIT 33.9 % (36.0-47.0); HEMOGLOBIN 10.8 g/dl (12.0-15.5); MEAN CORPUSCULAR HGB CONC 31.9 g/dl (32.0-36.5); MEAN CORPUSCULAR VOLUME 94.2 fl (80.0-96.0); PLATELET COUNT, AUTOMATED 242 10^3/uL (150-450); WHITE BLOOD COUNT 7.5 10^3/uL (4.0-10.0)
[2020-12-05 23:41] LABS: AMPHETAMINES LEVEL URINE NEGATIVE (NEGATIVE); BARBITURATES URINE NEGATIVE (NEGATIVE); BENZODIAZEPINES URINE NEGATIVE (NEGATIVE); CANNABINOIDS URINE NEGATIVE (NEGATIVE); COCAINE METABOLITE URINE NEGATIVE (NEGATIVE); METHADONE URINE NEGATIVE (NEGATIVE); OPIATES URINE NEGATIVE (NEGATIVE); PHENCYCLIDINE URINE NEGATIVE (NEGATIVE)
[2020-12-05 23:43] LABS: HCG, SERUM QUALITATIVE NEGATIVE (NEGATIVE)
[2020-12-05 23:57] LABS: ACETAMINOPHEN LEVEL < 2.0 UG/ML (10.0-30.0); ALBUMIN 3.6 GM/DL (3.2-5.2); ALT/SGPT 39 U/L (12-78); BILIRUBIN,DIRECT < 0.1 MG/DL (0.0-0.2); BILIRUBIN,TOTAL 0.3 MG/DL (0.2-1.0); BLOOD UREA NITROGEN 10 MG/DL (7-18); CALCIUM LEVEL 8.9 MG/DL (8.5-10.1); CARBON DIOXIDE LEVEL 29 MEQ/L (21-32); CHLORIDE LEVEL 106 MEQ/L (98-107); CREATININE FOR GFR 0.71 MG/DL (0.55-1.30); ETHYL ALCOHOL (ETHANOL) < 0.003 % (0.000-0.010); GLOMERULAR FILTRATION RATE > 60.0 (>60); GLUCOSE, FASTING 107 MG/DL (70-100); POTASSIUM SERUM 3.6 MEQ/L (3.5-5.1); SALICYLATE LEVEL 3.1 MG/DL (5.0-30.0); SODIUM LEVEL 143 MEQ/L (136-145); THYROID STIMULATING HORMONE 0.647 uIU/ML (0.358-3.740); VALPROIC ACID (DEPAKOTE) 61.9 UG/ML (50.0-100.0)
--- NOTE | 2020-12-06 07:42 | MHIPNPDOC ---
[facility] Progress Note Progress Note DATE OF SERVICE: 12/06/20 Patient presented by PSA, patient meets criteria for inpatient mission due to suicidal homicidal ideation, profusely will be transferred out due to threatening behavior towards [facility] staff and previous charges. Vital Signs Vital Signs Date Time Temp Pulse Resp B/P (MAP) Pulse Ox O2 Delivery O2 Flow Rate FiO2 12/05/20 22:05 97.3 117 16 141/74 (96) 99 Room Air Laboratory Data 24H Labs Laboratory Tests 2 12/05/20 23:01: Nucleated Red Blood Cells % (auto) 0.0, Anion Gap 8, Glomerular Filtration Rate > 60.0, Calcium Level 8.9, Total Bilirubin 0.3, Direct Bilirubin < 0.1, Aspartate Amino Transf (AST/SGOT) 20, Alanine Aminotransferase (ALT/SGPT) 39, Alkaline Phosphatase 41L, Total Protein 7.0, Albumin 3.6, Albumin/Globulin Ratio 1.1L, Thyroid Stimulating Hormone (TSH) 0.647, Human Chorionic Gonadotropin, Qual NEGATIVE, Salicylates Level 3.1L, Urine Opiates Screen NEGATIVE, Urine Methadone Screen NEGATIVE, Acetaminophen Level < 2.0L, Urine Barbiturates Screen NEGATIVE, Valproic Acid (Depakene) Level 61.9, Urine Phencyclidine Screen NEGATIVE, Urine Amphetamines Screen NEGATIVE, Urine Benzodiazepines Screen NEGATIVE, Urine Cocaine Metabolite Screen NEGATIVE, Urine Cannabinoids Screen NE GATIVE, Ethyl Alcohol Level < 0.003 CBC/BMP Laboratory Tests 12/05/20 23:01 Allergies Coded Allergies: Penicillins (Unverified Allergy, Unknown, 09/02/19) paliperidone (Unverified Adverse Reaction, Mild, DROOLING, 01/31/20) TODD METCALF MD Dec 06, 2020 07:42
[2020-12-06] MEDS ORDERED: FLUO20CA22 PO (12:00)
[2020-12-06] MEDS: FLUoxetine 20 MG CAP PO SCH (12:05)
[2020-12-06] MEDS: FOLIC ACID 1 MG TAB PO SCH (12:05)
[2020-12-06] MEDS ORDERED: DOCUSATE SODIUM 100MG CAPSULE PO ONE (12:05)
[2020-12-06] MEDS ORDERED: OMEP-221 PO (12:37)
[2020-12-06] MEDS ORDERED: DIVA500T94 PO (12:37)
[2020-12-06] MEDS ORDERED: PRAZ1CAP PO (12:37)
[2020-12-06] MEDS ORDERED: AMAN100T PO (12:37)
[2020-12-06] MEDS: VITAMIN D 1,000 INTERNATIONAL UNITS TABLET PO SCH (12:50)
[2020-12-06] MEDS: FERROUS SULFATE 325MG TAB PO SCH (12:50)
[2020-12-06] MEDS ORDERED: ONDA-83 PO (12:51)
[2020-12-06] MEDS ORDERED: HOME MED LIST COMPLETE! XX SCH (12:55)
[2020-12-06 17:04] LABS: RSV AMPLIFICATION NEGATIVE (NEGATIVE)
--- NOTE | 2020-12-06 17:21 | ECGEPIP ---
[facility] - ED Test Date: 2020-12-06 Pat Name: EVELIO KUNZ Department: Room: - Gender: Female Joint Filler: ELLIOT : 1990 Requested By: LUISITO Zurita Order Number: [id number] Reading MD: Luisito Armenta Measurements Intervals [place] Rate: 96 P: 66 [place]: 132 QRS: 69 QRSD: 92 T: 48 QT: 372 QTc: 469 Interpretive Statements Normal sinus rhythm Similar to tracing done 05-14-20 Electronically Signed on 12-06-2020 17:20:47 EDT by Luisito Armenta
[2020-12-06] MEDS ORDERED: DIVALPROEX 250 MG TAB PO SCH (21:00)
[2020-12-06] MEDS ORDERED: RAMELTEON 8 MG TAB (ROZEREM) PO SCH (21:00)
[2020-12-06] MEDS ORDERED: cloZAPine 100 MG TAB (S0136) PO SCH ×2 (21:00)
[2020-12-06] MEDS ORDERED: DIVALPROEX 500 MG TAB PO SCH (21:00)
[2020-12-07] MEDS: FLUoxetine 20 MG CAP PO SCH (10:02)
[2020-12-07] MEDS: VITAMIN D 1,000 INTERNATIONAL UNITS TABLET PO SCH (10:02)
[2020-12-07] MEDS: FERROUS SULFATE 325MG TAB PO SCH (10:02)
[2020-12-07] MEDS: FOLIC ACID 1 MG TAB PO SCH (10:03)
[2020-12-07] MEDS ORDERED: DOCUSATE SODIUM 100MG CAPSULE PO ONE (12:50)
[2020-12-07 13:27] VITALS: BP 120/73
== END 2020-12-07 13:33 ==
LOC: M ED 21:55
DX: R45.851 Suicidal ideations (principal); F20.9 Schizophrenia, unspecified; F32.9 Major depressive disorder, single episode, unspecified; F17.200 Nicotine dependence, unspecified, uncomplicated; Z88.0 Allergy status to penicillin; Z79.899 Other long term (current) drug therapy

== ENCOUNTER → 2020-12-16 | Outpatient (REF) | payer OTHER ==
[~2020-12-16] MED LIST changes: +FLUO20CA22 PO; +OMEP-221 PO; +ONDA-83 PO
[2020-12-16 16:19] LABS: BASO % 0.5 % (0.0-1.0); EOS # 0.3 10^3/uL (0.0-0.5); EOS % 4.5 % (0.0-3.0); HEMATOCRIT 34.7 % (36.0-47.0); HEMOGLOBIN 10.9 g/dl (12.0-15.5); LYMPH # 2.8 10^3/uL (1.5-5.0); LYMPH % 37.5 % (24.0-44.0); MEAN CORPUSCULAR HEMOGLOBIN 29.5 pg (27.0-33.0); MEAN CORPUSCULAR HGB CONC 31.4 g/dl (32.0-36.5); MONO # 0.7 10^3/uL (0.0-0.8); MONO % 9.6 % (2.0-8.0); NEUTROPHILS # 3.5 10^3/uL (1.5-8.5); NEUTROPHILS % 47.4 % (36.0-66.0); PLATELET COUNT, AUTOMATED 275 10^3/uL (150-450); RED BLOOD COUNT 3.69 10^6/uL (4.00-5.40); WHITE BLOOD COUNT 7.4 10^3/uL (4.0-10.0)
== END ==
LOC: M LABDRAWC 15:49
PROVIDERS: ATTEND Nurse Practitioner Psychiatric/Mental Health
DX: Z00.00 Encounter for general adult medical examination without abnormal findings (principal)

== ENCOUNTER → 2020-12-29 | Outpatient (REF) | payer OTHER ==
[2020-12-30 12:16] LABS: FREE T4 1.05 NG/DL (0.76-1.46); THYROID STIMULATING HORMONE 0.576 uIU/ML (0.358-3.740)
== END ==
LOC: M SFHCPLAZ 14:20
PROVIDERS: ATTEND Family Medicine
DX: Z78.9 Other specified health status (principal)

== ENCOUNTER → 2021-01-15 | Outpatient (REF) | payer OTHER ==
[~2021-01-15] MED LIST changes: +DOXY-443 PO; -DOXY1CAP62 PO
[2021-01-15 16:11] LABS: BASO % 0.5 % (0.0-1.0); EOS # 0.3 10^3/uL (0.0-0.5); EOS % 4.1 % (0.0-3.0); HEMATOCRIT 34.8 % (36.0-47.0); HEMOGLOBIN 11.1 g/dl (12.0-15.5); LYMPH # 2.5 10^3/uL (1.5-5.0); LYMPH % 32.5 % (24.0-44.0); MEAN CORPUSCULAR HEMOGLOBIN 29.5 pg (27.0-33.0); MEAN CORPUSCULAR HGB CONC 31.9 g/dl (32.0-36.5); MEAN CORPUSCULAR VOLUME 92.6 fl (80.0-96.0); MONO # 0.7 10^3/uL (0.0-0.8); MONO % 9.2 % (2.0-8.0); NEUTROPHILS # 4.1 10^3/uL (1.5-8.5); NEUTROPHILS % 53.3 % (36.0-66.0); PLATELET COUNT, AUTOMATED 246 10^3/uL (150-450); RED BLOOD COUNT 3.76 10^6/uL (4.00-5.40); WHITE BLOOD COUNT 7.6 10^3/uL (4.0-10.0)
== END ==
LOC: M LABDRAWC 15:39
PROVIDERS: ATTEND Nurse Practitioner Psychiatric/Mental Health
DX: F25.0 Schizoaffective disorder, bipolar type (principal)

== ENCOUNTER 2021-04-04 12:22 | Emergency (ER) | payer OTHER ==
[~2021-04-04] VITALS: Ht 162.6 cm; Wt 101.8 kg
[~2021-04-04 12:22] MED LIST changes: -CEFD1CAP8; -CEFD1CAP8 PO; +CEFD300C41; +CEFD300C41 PO; -HALO5TA PO; +HALO5TAB33 PO; -OMEP-221 PO; +OMEP40CA5 PO
[2021-04-04] MEDS ORDERED: HALOPERIDOL 5MG/ML VIAL (J1630 PER 1) IM ONE (12:30)
[2021-04-04] MEDS ORDERED: LORazepam 2 MG/ML VIAL IM ONE (12:30)
[2021-04-04] MEDS ORDERED: LORazepam 2 MG TAB PO STA (12:47)
[2021-04-04 13:14] LABS: HEMATOCRIT 37.4 % (36.0-47.0); MEAN CORPUSCULAR HEMOGLOBIN 29.6 pg (27.0-33.0); MEAN CORPUSCULAR HGB CONC 32.1 g/dl (32.0-36.5); MEAN CORPUSCULAR VOLUME 92.3 fl (80.0-96.0); PLATELET COUNT, AUTOMATED 295 10^3/uL (150-450); RED BLOOD COUNT 4.05 10^6/uL (4.00-5.40); WHITE BLOOD COUNT 11.3 10^3/uL (4.0-10.0)
[2021-04-04] MEDS ORDERED: BENZ-52 PO (13:31)
[2021-04-04] MEDS ORDERED: RAME8TAB2 PO (13:31)
[2021-04-04] MEDS ORDERED: OMEP40CA5 PO (13:31)
[2021-04-04 13:45] LABS: HCG, SERUM QUALITATIVE NEGATIVE (NEGATIVE)
[2021-04-04 13:56] LABS: ACETAMINOPHEN LEVEL < 2.0 UG/ML (10.0-30.0); ALBUMIN 4.4 GM/DL (3.2-5.2); ALT/SGPT 45 U/L (12-78); BILIRUBIN,DIRECT 0.1 MG/DL (0.0-0.2); BILIRUBIN,TOTAL 0.2 MG/DL (0.2-1.0); BLOOD UREA NITROGEN 15 MG/DL (7-18); CALCIUM LEVEL 9.9 MG/DL (8.5-10.1); CARBON DIOXIDE LEVEL 27 MEQ/L (21-32); CHLORIDE LEVEL 105 MEQ/L (98-107); CREATININE FOR GFR 0.78 MG/DL (0.55-1.30); ETHYL ALCOHOL (ETHANOL) < 0.003 % (0.000-0.010); GLOMERULAR FILTRATION RATE > 60.0 (>60); GLUCOSE, FASTING 89 MG/DL (70-100); POTASSIUM SERUM 4.4 MEQ/L (3.5-5.1); SALICYLATE LEVEL 2.6 MG/DL (5.0-30.0); SODIUM LEVEL 138 MEQ/L (136-145); TOTAL PROTEIN 8.4 GM/DL (6.4-8.2); VALPROIC ACID (DEPAKOTE) 53.2 UG/ML (50.0-100.0)
[2021-04-04 14:23] LABS: AMPHETAMINES LEVEL URINE NEGATIVE (NEGATIVE); BARBITURATES URINE NEGATIVE (NEGATIVE); BENZODIAZEPINES URINE NEGATIVE (NEGATIVE); CANNABINOIDS URINE NEGATIVE (NEGATIVE); COCAINE METABOLITE URINE NEGATIVE (NEGATIVE); METHADONE URINE NEGATIVE (NEGATIVE); OPIATES URINE NEGATIVE (NEGATIVE); PHENCYCLIDINE URINE NEGATIVE (NEGATIVE)
[2021-04-04] MEDS ORDERED: COMMENTS (16:55)
[2021-04-04] MEDS ORDERED: HOME MED LIST COMPLETE! XX SCH (17:00)
[2021-04-04] MEDS: cloZAPine 100 MG TAB (S0136) PO SCH (20:27)
[2021-04-04] MEDS: BENZTROPINE 1 MG TAB PO SCH (20:27)
[2021-04-04] MEDS: RAMELTEON 8 MG TAB (ROZEREM) PO SCH (20:27)
[2021-04-04] MEDS: DIVALPROEX 500 MG TAB PO SCH (20:27)
[2021-04-04] MEDS: AMANTADINE 100MG TABLET PO SCH (20:27)
[2021-04-04] MEDS: PRAZOSIN 1 MG CAP PO SCH (20:28)
[2021-04-05] MEDS: FERROUS SULFATE 325MG TAB PO SCH (12:38)
[2021-04-05] MEDS: VITAMIN D 1,000 INTERNATIONAL UNITS TABLET PO SCH (12:38)
[2021-04-05] MEDS: OMEPRAZOLE 20MG CAP PO SCH (12:38)
[2021-04-05] MEDS: FOLIC ACID 1 MG TAB PO SCH (12:38)
[2021-04-05] MEDS: FLUoxetine 20 MG CAP PO SCH (12:38)
[2021-04-05] MEDS: DIVALPROEX 500 MG TAB PO SCH (21:18)
[2021-04-05] MEDS: BENZTROPINE 1 MG TAB PO SCH (21:18)
[2021-04-05] MEDS: RAMELTEON 8 MG TAB (ROZEREM) PO SCH (21:18)
[2021-04-05] MEDS: PRAZOSIN 1 MG CAP PO SCH (21:21)
[2021-04-05] MEDS: AMANTADINE 100MG TABLET PO SCH (23:14)
[2021-04-05] MEDS: cloZAPine 100 MG TAB (S0136) PO SCH (23:14)
[2021-04-06] MEDS ORDERED: ACETAMINOPHEN TAB 650MG DOSE (2X325MG) PO ONE (08:55)
[2021-04-06] MEDS: FERROUS SULFATE 325MG TAB PO SCH (08:58)
[2021-04-06] MEDS: VITAMIN D 1,000 INTERNATIONAL UNITS TABLET PO SCH (08:59)
[2021-04-06] MEDS: FLUoxetine 20 MG CAP PO SCH (08:59)
[2021-04-06] MEDS: OMEPRAZOLE 20MG CAP PO SCH (08:59)
[2021-04-06] MEDS: FOLIC ACID 1 MG TAB PO SCH (09:00)
[2021-04-06 21:00] VITALS: BP 141/81
[2021-04-06] MEDS: BENZTROPINE 1 MG TAB PO SCH (21:00)
[2021-04-06] MEDS: PRAZOSIN 1 MG CAP PO SCH (21:00)
[2021-04-06] MEDS: DIVALPROEX 500 MG TAB PO SCH (21:00)
[2021-04-06] MEDS: RAMELTEON 8 MG TAB (ROZEREM) PO SCH (21:00)
[2021-04-06] MEDS: AMANTADINE 100MG TABLET PO SCH (21:00)
[2021-04-06] MEDS: cloZAPine 100 MG TAB (S0136) PO SCH (21:00)
[2021-04-07] MEDS: FERROUS SULFATE 325MG TAB PO SCH (09:25)
[2021-04-07] MEDS: FOLIC ACID 1 MG TAB PO SCH (09:25)
[2021-04-07] MEDS: OMEPRAZOLE 20MG CAP PO SCH (09:25)
[2021-04-07] MEDS: VITAMIN D 1,000 INTERNATIONAL UNITS TABLET PO SCH (09:25)
[2021-04-07] MEDS: FLUoxetine 20 MG CAP PO SCH (09:25)
[2021-04-07 17:09] VITALS: BP 122/79
== END 2021-04-07 17:24 ==
LOC: M ED 12:22
DX: R45.851 Suicidal ideations (principal); F25.0 Schizoaffective disorder, bipolar type; E55.9 Vitamin D deficiency, unspecified; D64.9 Anemia, unspecified; F17.200 Nicotine dependence, unspecified, uncomplicated; Z88.0 Allergy status to penicillin; Z88.8 Allergy status to other drugs, medicaments and biological substances; Z79.899 Other long term (current) drug therapy

== ENCOUNTER 2021-05-24 18:54 | Emergency (ER) | payer OTHER ==
[~2021-05-24] VITALS: Ht 162.6 cm; Wt 96.4 kg
[~2021-05-24 18:54] MED LIST changes: +COMMENTS; -D31000TA2 PO; +VITA100093 PO
[2021-05-24 22:21] LABS: HEMATOCRIT 37.1 % (36.0-47.0); HEMOGLOBIN 11.9 g/dl (12.0-15.5); MEAN CORPUSCULAR HEMOGLOBIN 29.2 pg (27.0-33.0); MEAN CORPUSCULAR HGB CONC 32.1 g/dl (32.0-36.5); MEAN CORPUSCULAR VOLUME 91.2 fl (80.0-96.0); PLATELET COUNT, AUTOMATED 285 10^3/uL (150-450); RED BLOOD COUNT 4.07 10^6/uL (4.00-5.40); WHITE BLOOD COUNT 8.7 10^3/uL (4.0-10.0)
[2021-05-24 22:26] LABS: AMPHETAMINES LEVEL URINE NEGATIVE (NEGATIVE); BARBITURATES URINE NEGATIVE (NEGATIVE); BENZODIAZEPINES URINE NEGATIVE (NEGATIVE); CANNABINOIDS URINE NEGATIVE (NEGATIVE); COCAINE METABOLITE URINE NEGATIVE (NEGATIVE); METHADONE URINE NEGATIVE (NEGATIVE); OPIATES URINE NEGATIVE (NEGATIVE); PHENCYCLIDINE URINE NEGATIVE (NEGATIVE)
[2021-05-24 22:34] LABS: HCG, SERUM QUALITATIVE NEGATIVE (NEGATIVE)
[2021-05-24 22:38] LABS: ACETAMINOPHEN LEVEL < 2.0 UG/ML (10.0-30.0); ALBUMIN 3.7 GM/DL (3.2-5.2); ALT/SGPT 38 U/L (12-78); BILIRUBIN,DIRECT 0.1 MG/DL (0.0-0.2); BILIRUBIN,TOTAL 0.2 MG/DL (0.2-1.0); BLOOD UREA NITROGEN 13 MG/DL (7-18); CALCIUM LEVEL 9.1 MG/DL (8.5-10.1); CARBON DIOXIDE LEVEL 29 MEQ/L (21-32); CHLORIDE LEVEL 110 MEQ/L (98-107); CREATININE FOR GFR 0.73 MG/DL (0.55-1.30); ETHYL ALCOHOL (ETHANOL) < 0.003 % (0.000-0.010); GLOMERULAR FILTRATION RATE > 60.0 (>60); GLUCOSE, FASTING 120 MG/DL (70-100); POTASSIUM SERUM 3.9 MEQ/L (3.5-5.1); SODIUM LEVEL 142 MEQ/L (136-145); TOTAL PROTEIN 7.2 GM/DL (6.4-8.2); VALPROIC ACID (DEPAKOTE) 30.2 UG/ML (50.0-100.0)
[2021-05-25] MEDS ORDERED: DIVALPROEX 500 MG TAB PO ONE (00:25)
[2021-05-25] MEDS ORDERED: DULC5TAB PO (01:22)
[2021-05-25] MEDS ORDERED: LACT20EL PO (01:22)
[2021-05-25] MEDS ORDERED: MIRA1POW3 PO (01:22)
[2021-05-25] MEDS ORDERED: FLUO10CA18 PO (01:22)
[2021-05-25] MEDS ORDERED: HYDR50TA30 PO (01:22)
[2021-05-25] MEDS ORDERED: HOME MED LIST COMPLETE! XX SCH (01:25)
[2021-05-25] MEDS ORDERED: ACETAMINOPHEN TAB 650MG DOSE (2X325MG) PO ONE (04:30)
[2021-05-25] MEDS: FERROUS SULFATE 325MG TAB PO SCH (08:54)
[2021-05-25] MEDS: FLUoxetine 10 MG CAP PO SCH (08:55)
[2021-05-25] MEDS: FOLIC ACID 1 MG TAB PO SCH (08:55)
[2021-05-25] MEDS: VITAMIN D 1,000 INTERNATIONAL UNITS TABLET PO SCH (08:55)
[2021-05-25] MEDS: OMEPRAZOLE 20MG CAP PO SCH (08:55)
[2021-05-25] MEDS ORDERED: LORazepam 2 MG/ML VIAL IM ONE (11:10)
[2021-05-25] MEDS ORDERED: OLANZapine INTRAMUSCULAR 10MG VIAL IM ONE (11:10)
[2021-05-25] MEDS: BENZTROPINE 1 MG TAB PO SCH (20:01)
[2021-05-25] MEDS: DIVALPROEX 500MG *ER* TAB PO SCH (20:02)
[2021-05-25] MEDS: AMANTADINE 100MG TABLET PO SCH (20:02)
[2021-05-26] MEDS: FERROUS SULFATE 325MG TAB PO SCH (08:23)
[2021-05-26] MEDS: OMEPRAZOLE 20MG CAP PO SCH (08:23)
[2021-05-26] MEDS: VITAMIN D 1,000 INTERNATIONAL UNITS TABLET PO SCH (08:23)
[2021-05-26] MEDS: FOLIC ACID 1 MG TAB PO SCH (08:23)
[2021-05-26] MEDS: FLUoxetine 10 MG CAP PO SCH (08:23)
[2021-05-26] MEDS: BENZTROPINE 1 MG TAB PO SCH (21:07)
[2021-05-26] MEDS: AMANTADINE 100MG TABLET PO SCH (21:07)
[2021-05-26] MEDS: DIVALPROEX 500MG *ER* TAB PO SCH (21:07)
[2021-05-26] MEDS: cloZAPine 100 MG TAB (S0136) PO SCH (21:31)
[2021-05-27] MEDS: FLUoxetine 10 MG CAP PO SCH (09:38)
[2021-05-27] MEDS: OMEPRAZOLE 20MG CAP PO SCH (09:39)
[2021-05-27] MEDS: FOLIC ACID 1 MG TAB PO SCH (09:39)
[2021-05-27] MEDS: VITAMIN D 1,000 INTERNATIONAL UNITS TABLET PO SCH (09:39)
[2021-05-27] MEDS: FERROUS SULFATE 325MG TAB PO SCH (09:39)
[2021-05-27] MEDS: DIVALPROEX 500MG *ER* TAB PO SCH (21:54)
[2021-05-27] MEDS: cloZAPine 100 MG TAB (S0136) PO SCH (21:54)
[2021-05-27] MEDS: BENZTROPINE 1 MG TAB PO SCH (21:55)
[2021-05-27] MEDS: AMANTADINE 100MG TABLET PO SCH (21:55)
[2021-05-28] MEDS: OMEPRAZOLE 20MG CAP PO SCH (11:16)
[2021-05-28] MEDS: FERROUS SULFATE 325MG TAB PO SCH (11:16)
[2021-05-28] MEDS: FOLIC ACID 1 MG TAB PO SCH (11:16)
[2021-05-28] MEDS: VITAMIN D 1,000 INTERNATIONAL UNITS TABLET PO SCH (11:16)
[2021-05-28] MEDS: FLUoxetine 10 MG CAP PO SCH (11:16)
[2021-05-28] MEDS ORDERED: OLANZapine ORAL DISINTEGRATING TAB 5MG PO ONE (18:50)
[2021-05-28] MEDS: DIVALPROEX 500MG *ER* TAB PO SCH (21:30)
[2021-05-28] MEDS: AMANTADINE 100MG TABLET PO SCH (21:30)
[2021-05-28] MEDS: cloZAPine 100 MG TAB (S0136) PO SCH (21:30)
[2021-05-28] MEDS: BENZTROPINE 1 MG TAB PO SCH (21:30)
[2021-05-29] MEDS: FOLIC ACID 1 MG TAB PO SCH (11:06)
[2021-05-29] MEDS: OMEPRAZOLE 20MG CAP PO SCH (11:06)
[2021-05-29] MEDS: FERROUS SULFATE 325MG TAB PO SCH (11:06)
[2021-05-29] MEDS: VITAMIN D 1,000 INTERNATIONAL UNITS TABLET PO SCH (11:07)
[2021-05-29] MEDS: FLUoxetine 10 MG CAP PO SCH (11:07)
[2021-05-29] MEDS: BENZTROPINE 1 MG TAB PO SCH (20:23)
[2021-05-29] MEDS: DIVALPROEX 500MG *ER* TAB PO SCH (20:23)
[2021-05-29] MEDS: cloZAPine 100 MG TAB (S0136) PO SCH (21:00)
[2021-05-29] MEDS: AMANTADINE 100MG TABLET PO SCH (21:00)
[2021-05-29] MEDS ORDERED: RAMELTEON 8 MG TAB (ROZEREM) PO ONE (21:30)
[2021-05-30] MEDS: FERROUS SULFATE 325MG TAB PO SCH (09:00)
[2021-05-30] MEDS: VITAMIN D 1,000 INTERNATIONAL UNITS TABLET PO SCH (09:00)
[2021-05-30] MEDS: FLUoxetine 10 MG CAP PO SCH (09:00)
[2021-05-30] MEDS: FOLIC ACID 1 MG TAB PO SCH (09:00)
[2021-05-30] MEDS: OMEPRAZOLE 20MG CAP PO SCH (09:00)
[2021-05-30] MEDS ORDERED: LORazepam 2 MG TAB PO STA (18:57)
[2021-05-30] MEDS: BENZTROPINE 1 MG TAB PO SCH (20:40)
[2021-05-30] MEDS: cloZAPine 100 MG TAB (S0136) PO SCH (20:40)
[2021-05-30] MEDS: DIVALPROEX 500MG *ER* TAB PO SCH (20:41)
[2021-05-30] MEDS: RAMELTEON 8 MG TAB (ROZEREM) PO SCH (20:42)
[2021-05-30] MEDS: AMANTADINE 100MG TABLET PO SCH (20:42)
[2021-05-31] MEDS: OMEPRAZOLE 20MG CAP PO SCH (09:59)
[2021-05-31] MEDS: FLUoxetine 10 MG CAP PO SCH (09:59)
[2021-05-31] MEDS: VITAMIN D 1,000 INTERNATIONAL UNITS TABLET PO SCH (09:59)
[2021-05-31] MEDS: FERROUS SULFATE 325MG TAB PO SCH (09:59)
[2021-05-31] MEDS: FOLIC ACID 1 MG TAB PO SCH (09:59)
[2021-05-31] MEDS: cloZAPine 100 MG TAB (S0136) PO SCH (21:15)
[2021-05-31] MEDS: RAMELTEON 8 MG TAB (ROZEREM) PO SCH (21:16)
[2021-05-31] MEDS: BENZTROPINE 1 MG TAB PO SCH (21:16)
[2021-05-31] MEDS: DIVALPROEX 500MG *ER* TAB PO SCH (21:16)
[2021-05-31] MEDS: AMANTADINE 100MG TABLET PO SCH (21:17)
[2021-06-01] MEDS ORDERED: diphenhydrAMINE 25MG CAP PO ONE (01:35)
[2021-06-01] MEDS: FERROUS SULFATE 325MG TAB PO SCH (08:25)
[2021-06-01] MEDS: VITAMIN D 1,000 INTERNATIONAL UNITS TABLET PO SCH (08:25)
[2021-06-01] MEDS: FOLIC ACID 1 MG TAB PO SCH (08:25)
[2021-06-01] MEDS: FLUoxetine 10 MG CAP PO SCH (08:25)
[2021-06-01] MEDS: OMEPRAZOLE 20MG CAP PO SCH (08:25)
[2021-06-01] MEDS: DIVALPROEX 500MG *ER* TAB PO SCH (22:03)
[2021-06-01] MEDS: cloZAPine 100 MG TAB (S0136) PO SCH (22:03)
[2021-06-01] MEDS: RAMELTEON 8 MG TAB (ROZEREM) PO SCH (22:03)
[2021-06-01] MEDS: AMANTADINE 100MG TABLET PO SCH (22:04)
[2021-06-01] MEDS: BENZTROPINE 1 MG TAB PO SCH (22:04)
[2021-06-02] MEDS: FOLIC ACID 1 MG TAB PO SCH (09:49)
[2021-06-02] MEDS: VITAMIN D 1,000 INTERNATIONAL UNITS TABLET PO SCH (09:49)
[2021-06-02] MEDS: OMEPRAZOLE 20MG CAP PO SCH (09:49)
[2021-06-02] MEDS: FERROUS SULFATE 325MG TAB PO SCH (09:49)
[2021-06-02] MEDS: FLUoxetine 10 MG CAP PO SCH (09:49)
[2021-06-02] MEDS ORDERED: LORazepam 1 MG TAB PO STA (14:53)
[2021-06-02] MEDS: cloZAPine 100 MG TAB (S0136) PO SCH (20:28)
[2021-06-02] MEDS: BENZTROPINE 1 MG TAB PO SCH (20:29)
[2021-06-02] MEDS: DIVALPROEX 500MG *ER* TAB PO SCH (20:31)
[2021-06-02] MEDS: RAMELTEON 8 MG TAB (ROZEREM) PO SCH (20:31)
[2021-06-02] MEDS: AMANTADINE 100MG TABLET PO SCH (20:32)
[2021-06-02] MEDS ORDERED: ACETAMINOPHEN TAB 650MG DOSE (2X325MG) PO ONE (21:05)
[2021-06-03] MEDS: OMEPRAZOLE 20MG CAP PO SCH (08:27)
[2021-06-03] MEDS: FERROUS SULFATE 325MG TAB PO SCH (08:27)
[2021-06-03] MEDS: FOLIC ACID 1 MG TAB PO SCH (08:27)
[2021-06-03] MEDS: VITAMIN D 1,000 INTERNATIONAL UNITS TABLET PO SCH (08:27)
[2021-06-03] MEDS: FLUoxetine 10 MG CAP PO SCH (08:27)
[2021-06-03] MEDS: DIVALPROEX 500MG *ER* TAB PO SCH (21:26)
[2021-06-03] MEDS: cloZAPine 100 MG TAB (S0136) PO SCH (21:26)
[2021-06-03] MEDS: AMANTADINE 100MG TABLET PO SCH (21:26)
[2021-06-03] MEDS: RAMELTEON 8 MG TAB (ROZEREM) PO SCH (21:26)
[2021-06-03] MEDS: BENZTROPINE 1 MG TAB PO SCH (21:26)
[2021-06-04] MEDS: OMEPRAZOLE 20MG CAP PO SCH (09:32)
[2021-06-04] MEDS: FOLIC ACID 1 MG TAB PO SCH (09:32)
[2021-06-04] MEDS: FERROUS SULFATE 325MG TAB PO SCH (09:33)
[2021-06-04] MEDS: VITAMIN D 1,000 INTERNATIONAL UNITS TABLET PO SCH (09:33)
[2021-06-04] MEDS: FLUoxetine 10 MG CAP PO SCH (09:35)
[2021-06-04] MEDS: BENZTROPINE 1 MG TAB PO SCH (21:10)
[2021-06-04] MEDS: cloZAPine 100 MG TAB (S0136) PO SCH (21:10)
[2021-06-04] MEDS: AMANTADINE 100MG TABLET PO SCH (21:11)
[2021-06-04] MEDS: DIVALPROEX 500MG *ER* TAB PO SCH (21:11)
[2021-06-04] MEDS: RAMELTEON 8 MG TAB (ROZEREM) PO SCH (21:11)
[2021-06-05 04:45] VITALS: BP 137/82
== END 2021-06-05 04:54 ==
LOC: M ED 18:54
DX: R45.851 Suicidal ideations (principal); F20.9 Schizophrenia, unspecified; D64.9 Anemia, unspecified; E55.9 Vitamin D deficiency, unspecified; F17.200 Nicotine dependence, unspecified, uncomplicated; Z88.0 Allergy status to penicillin; Z88.8 Allergy status to other drugs, medicaments and biological substances; Z79.899 Other long term (current) drug therapy
CPT/HCPCS: 36415; 80048; 80076; 80143; 80164; 80307; 82077; 84443; 84703; 85027; 87426; 87798; 93005; 99285; J2060

== ENCOUNTER 2021-09-02 14:54 | Emergency (ER) | payer OTHER ==
[~2021-09-02] VITALS: Ht 162.6 cm; Wt 81.8 kg
[~2021-09-02 14:54] MED LIST changes: +DULC5TAB PO; +FLUO10CA18 PO; +HYDR50TA30 PO
[2021-09-02 15:44] LABS: HEMATOCRIT 33.5 % (36.0-47.0); HEMOGLOBIN 10.9 g/dl (12.0-15.5); MEAN CORPUSCULAR HEMOGLOBIN 29.4 pg (27.0-33.0); MEAN CORPUSCULAR HGB CONC 32.5 g/dl (32.0-36.5); MEAN CORPUSCULAR VOLUME 90.3 fl (80.0-96.0); PLATELET COUNT, AUTOMATED 300 10^3/uL (150-450); RED BLOOD COUNT 3.71 10^6/uL (4.00-5.40); WHITE BLOOD COUNT 7.2 10^3/uL (4.0-10.0)
[2021-09-02] MEDS ORDERED: LORazepam 1 MG TAB PO ONE (16:05)
[2021-09-02] MEDS ORDERED: BENZTROPINE 1 MG TAB PO ONE (16:05)
[2021-09-02 16:11] LABS: HCG, SERUM QUALITATIVE NEGATIVE (NEGATIVE)
[2021-09-02 16:15] LABS: RSV AMPLIFICATION NEGATIVE (NEGATIVE)
[2021-09-02 16:35] LABS: ACETAMINOPHEN LEVEL < 2.0 UG/ML (10.0-30.0); ALBUMIN 4.2 GM/DL (3.2-5.2); ALT/SGPT 41 U/L (12-78); BILIRUBIN,DIRECT 0.1 MG/DL (0.0-0.2); BILIRUBIN,TOTAL 0.3 MG/DL (0.2-1.0); BLOOD UREA NITROGEN 22 MG/DL (7-18); CARBON DIOXIDE LEVEL 28 MEQ/L (21-32); CHLORIDE LEVEL 107 MEQ/L (98-107); ETHYL ALCOHOL (ETHANOL) < 0.003 % (0.000-0.010); GLOMERULAR FILTRATION RATE > 60.0 (>60); GLUCOSE, FASTING 89 MG/DL (70-100); POTASSIUM SERUM 3.8 MEQ/L (3.5-5.1); SALICYLATE LEVEL < 1.7 MG/DL (5.0-30.0); SODIUM LEVEL 143 MEQ/L (136-145); THYROID STIMULATING HORMONE 0.987 uIU/ML (0.358-3.740); TOTAL PROTEIN 7.9 GM/DL (6.4-8.2); VALPROIC ACID (DEPAKOTE) 66.8 UG/ML (50.0-100.0)
[2021-09-02 17:14] LABS: AMPHETAMINES LEVEL URINE NEGATIVE (NEGATIVE); BARBITURATES URINE NEGATIVE (NEGATIVE); BENZODIAZEPINES URINE NEGATIVE (NEGATIVE); CANNABINOIDS URINE NEGATIVE (NEGATIVE); COCAINE METABOLITE URINE NEGATIVE (NEGATIVE); METHADONE URINE NEGATIVE (NEGATIVE); OPIATES URINE NEGATIVE (NEGATIVE); PHENCYCLIDINE URINE NEGATIVE (NEGATIVE)
[2021-09-02 20:40] VITALS: BP 95/54
[2021-09-02] MEDS ORDERED: PRAZOSIN 1 MG CAP PO SCH (21:00)
[2021-09-02] MEDS ORDERED: RAMELTEON 8 MG TAB (ROZEREM) PO SCH (21:00)
[2021-09-03 09:07] VITALS: BP 110/60
[2021-09-03] MEDS ORDERED: CLOZ50TA PO (09:21)
[2021-09-03] MEDS ORDERED: VENL75CA47 PO (09:21)
[2021-09-03] MEDS ORDERED: HALO5TAB33 PO (09:21)
[2021-09-03] MEDS ORDERED: DIVA1TAB48 PO (09:21)
[2021-09-03] MEDS ORDERED: DEPA1TAB3 PO (09:21)
[2021-09-03] MEDS ORDERED: HOME MED LIST COMPLETE! XX SCH (09:25)
== END 2021-09-03 09:17 ==
LOC: M ED 14:54
DX: F20.9 Schizophrenia, unspecified (principal); F29 Unspecified psychosis not due to a substance or known physiological condition; Z88.0 Allergy status to penicillin; Z88.8 Allergy status to other drugs, medicaments and biological substances; Z79.899 Other long term (current) drug therapy
CPT/HCPCS: 36415; 80048; 80076; 80143; 80164; 80307; 82077; 84443; 84703; 85027; 87631; 93005; 99284; S0136

== ENCOUNTER → 2021-11-02 | Outpatient (REF) | payer OTHER ==
[~2021-11-02] MED LIST changes: +CLOZ50TA PO; +DIVA1TAB48 PO; +VENL75CA47 PO
[2021-11-02 18:26] LABS: BASO % 0.6 % (0.0-1.0); EOS # 0.1 10^3/uL (0.0-0.5); EOS % 1.9 % (0.0-3.0); HEMOGLOBIN 10.4 g/dl (12.0-15.5); LYMPH # 2.7 10^3/uL (1.5-5.0); LYMPH % 50.7 % (24.0-44.0); MEAN CORPUSCULAR HEMOGLOBIN 29.1 pg (27.0-33.0); MEAN CORPUSCULAR HGB CONC 31.5 g/dl (32.0-36.5); MEAN CORPUSCULAR VOLUME 92.4 fl (80.0-96.0); MONO # 0.5 10^3/uL (0.0-0.8); MONO % 9.7 % (2.0-8.0); NEUTROPHILS % 36.5 % (36.0-66.0); PLATELET COUNT, AUTOMATED 265 10^3/uL (150-450); RED BLOOD COUNT 3.57 10^6/uL (4.00-5.40); WHITE BLOOD COUNT 5.4 10^3/uL (4.0-10.0)
== END ==
LOC: M LABDRAWC 17:12
PROVIDERS: ATTEND Psychiatry & Neurology Psychiatry
DX: F25.9 Schizoaffective disorder, unspecified (principal)

== ENCOUNTER 2021-11-10 11:51 | Emergency (ER) | payer OTHER ==
[~2021-11-10] VITALS: Ht 162.6 cm; Wt 81.8 kg
[2021-11-10 12:55] LABS: HEMATOCRIT 32.9 % (36.0-47.0); HEMOGLOBIN 10.9 g/dl (12.0-15.5); MEAN CORPUSCULAR HEMOGLOBIN 30.3 pg (27.0-33.0); MEAN CORPUSCULAR HGB CONC 33.1 g/dl (32.0-36.5); MEAN CORPUSCULAR VOLUME 91.4 fl (80.0-96.0); PLATELET COUNT, AUTOMATED 231 10^3/uL (150-450); WHITE BLOOD COUNT 6.1 10^3/uL (4.0-10.0)
[2021-11-10 13:32] LABS: RSV AMPLIFICATION NEGATIVE (NEGATIVE)
[2021-11-10 13:34] LABS: AMPHETAMINES LEVEL URINE NEGATIVE (NEGATIVE); BARBITURATES URINE NEGATIVE (NEGATIVE); BENZODIAZEPINES URINE NEGATIVE (NEGATIVE); CANNABINOIDS URINE NEGATIVE (NEGATIVE); COCAINE METABOLITE URINE NEGATIVE (NEGATIVE); METHADONE URINE NEGATIVE (NEGATIVE); OPIATES URINE NEGATIVE (NEGATIVE); PHENCYCLIDINE URINE NEGATIVE (NEGATIVE)
[2021-11-10 13:38] LABS: HCG, SERUM QUALITATIVE NEGATIVE (NEGATIVE)
[2021-11-10 14:01] LABS: ACETAMINOPHEN LEVEL < 2.0 UG/ML (10.0-30.0); ALBUMIN 3.9 GM/DL (3.2-5.2); ALT/SGPT 44 U/L (12-78); BILIRUBIN,DIRECT 0.1 MG/DL (0.0-0.2); BILIRUBIN,TOTAL 0.3 MG/DL (0.2-1.0); BLOOD UREA NITROGEN 12 MG/DL (7-18); CALCIUM LEVEL 9.8 MG/DL (8.5-10.1); CARBON DIOXIDE LEVEL 26 MEQ/L (21-32); CHLORIDE LEVEL 106 MEQ/L (98-107); CREATININE FOR GFR 0.62 MG/DL (0.55-1.30); ETHYL ALCOHOL (ETHANOL) < 0.003 % (0.000-0.010); GLOMERULAR FILTRATION RATE > 60.0 (>60); GLUCOSE, FASTING 92 MG/DL (70-100); SALICYLATE LEVEL < 1.7 MG/DL (5.0-30.0); SODIUM LEVEL 140 MEQ/L (136-145); THYROID STIMULATING HORMONE 0.506 uIU/ML (0.358-3.740); TOTAL PROTEIN 7.8 GM/DL (6.4-8.2)
[2021-11-10 15:20] LABS: VALPROIC ACID (DEPAKOTE) 79.3 UG/ML (50.0-100.0)
[2021-11-10] MEDS ORDERED: IBUPROFEN 600MG TAB PO ONE (19:45)
[2021-11-11] MEDS ORDERED: NYSTOI TOP (00:13)
[2021-11-11] MEDS ORDERED: HALO10AM IM (00:13)
[2021-11-11] MEDS ORDERED: DIVA250T67 PO (00:13)
[2021-11-11] MEDS ORDERED: FOLI1TAB11 PO (00:13)
[2021-11-11] MEDS ORDERED: HOME MED LIST COMPLETE! XX SCH (00:15)
[2021-11-11] MEDS: DIVALPROEX 500 MG TAB PO SCH ×2 (03:57→21:14)
[2021-11-11] MEDS ORDERED: ONDANSETRON 4MG ORAL DISINTEGRATING TAB PO PRN (07:40)
[2021-11-11] MEDS ORDERED: hydrOXYzine 50 MG TAB PO PRN (07:40)
[2021-11-11] MEDS ORDERED: DIVALPROEX 250 MG TAB PO SCH (09:00)
[2021-11-11] MEDS ORDERED: DOCUSATE SODIUM 100MG CAPSULE PO SCH (09:00)
[2021-11-11] MEDS ORDERED: LACTULOSE 20 GM/30 ML SYRUP UD PO SCH (09:00)
[2021-11-11] MEDS ORDERED: OMEPRAZOLE 20MG CAP PO SCH (09:00)
[2021-11-11] MEDS ORDERED: VENLAFAXINE **XR** 75MG CAPSULE PO SCH (09:00)
[2021-11-11] MEDS ORDERED: FOLIC ACID 1MG TAB PO SCH (09:00)
[2021-11-11] MEDS: BENZTROPINE 1 MG TAB PO SCH ×2 (12:53→21:13)
[2021-11-11 20:32] VITALS: BP 130/82
[2021-11-11] MEDS ORDERED: AMANTADINE 100MG TABLET PO SCH (21:00)
[2021-11-11] MEDS ORDERED: PRAZOSIN 1 MG CAP PO SCH ×2 (21:00)
[2021-11-11 21:14] VITALS: BP 112/83
== END 2021-11-11 22:04 ==
LOC: M ED 11:51
DX: F29 Unspecified psychosis not due to a substance or known physiological condition (principal); J45.909 Unspecified asthma, uncomplicated; F25.9 Schizoaffective disorder, unspecified; F31.9 Bipolar disorder, unspecified; Z79.899 Other long term (current) drug therapy; F12.10 Cannabis abuse, uncomplicated; F17.200 Nicotine dependence, unspecified, uncomplicated
CPT/HCPCS: 36415; 80048; 80076; 80143; 80164; 80307; 82077; 84443; 84703; 85027; 87631; 93005; 99285; S0136

== ENCOUNTER → 2021-12-01 | Outpatient (REF) | payer OTHER ==
[~2021-12-01] MED LIST changes: +NYSTOI TOP
[2021-12-01 18:50] LABS: BASO % 0.5 % (0.0-1.0); EOS # 0.1 10^3/uL (0.0-0.5); EOS % 1.8 % (0.0-3.0); HEMATOCRIT 35.7 % (36.0-47.0); HEMOGLOBIN 11.5 g/dl (12.0-15.5); LYMPH % 49.9 % (24.0-44.0); MEAN CORPUSCULAR HEMOGLOBIN 29.3 pg (27.0-33.0); MEAN CORPUSCULAR HGB CONC 32.2 g/dl (32.0-36.5); MEAN CORPUSCULAR VOLUME 91.1 fl (80.0-96.0); MONO # 0.4 10^3/uL (0.0-0.8); MONO % 7.1 % (2.0-8.0); NEUTROPHILS # 2.4 10^3/uL (1.5-8.5); NEUTROPHILS % 40.4 % (36.0-66.0); PLATELET COUNT, AUTOMATED 324 10^3/uL (150-450); RED BLOOD COUNT 3.92 10^6/uL (4.00-5.40); WHITE BLOOD COUNT 6.1 10^3/uL (4.0-10.0)
== END ==
LOC: M LABDRAWC 17:20
PROVIDERS: ATTEND Nurse Practitioner Psychiatric/Mental Health
DX: F25.9 Schizoaffective disorder, unspecified (principal)

== ENCOUNTER → 2021-12-30 | Outpatient (REF) | payer OTHER ==
[~2021-12-30] MED LIST changes: -CLOZ100T2 PO; +CLOZ100T5 PO; -CLOZ25TA3 PO; +CLOZ25TA6 PO
[2021-12-30 18:16] LABS: BASO % 0.7 % (0.0-1.0); EOS # 0.1 10^3/uL (0.0-0.5); EOS % 1.7 % (0.0-3.0); HEMATOCRIT 30.4 % (36.0-47.0); HEMOGLOBIN 9.8 g/dl (12.0-15.5); LYMPH # 1.9 10^3/uL (1.5-5.0); LYMPH % 31.6 % (24.0-44.0); MEAN CORPUSCULAR HGB CONC 32.2 g/dl (32.0-36.5); MONO # 0.4 10^3/uL (0.0-0.8); MONO % 7.4 % (2.0-8.0); NEUTROPHILS # 3.4 10^3/uL (1.5-8.5); NEUTROPHILS % 58.3 % (36.0-66.0); PLATELET COUNT, AUTOMATED 270 10^3/uL (150-450); RED BLOOD COUNT 3.27 10^6/uL (4.00-5.40); WHITE BLOOD COUNT 5.9 10^3/uL (4.0-10.0)
== END ==
LOC: M LABDRAWC 17:19
PROVIDERS: ATTEND Nurse Practitioner Psychiatric/Mental Health
DX: F25.9 Schizoaffective disorder, unspecified (principal)

== ENCOUNTER → 2022-01-05 | Outpatient (REF) | payer OTHER ==
[2022-01-05 18:19] LABS: BASO % 0.5 % (0.0-1.0); EOS # 0.1 10^3/uL (0.0-0.5); EOS % 2.5 % (0.0-3.0); HEMOGLOBIN 9.6 g/dl (12.0-15.5); LYMPH # 2.3 10^3/uL (1.5-5.0); MEAN CORPUSCULAR HEMOGLOBIN 29.6 pg (27.0-33.0); MEAN CORPUSCULAR VOLUME 92.6 fl (80.0-96.0); MONO # 0.4 10^3/uL (0.0-0.8); MONO % 7.5 % (2.0-8.0); NEUTROPHILS # 2.7 10^3/uL (1.5-8.5); NEUTROPHILS % 48.1 % (36.0-66.0); PLATELET COUNT, AUTOMATED 287 10^3/uL (150-450); RED BLOOD COUNT 3.24 10^6/uL (4.00-5.40); WHITE BLOOD COUNT 5.6 10^3/uL (4.0-10.0)
== END ==
LOC: M LABDRWAD 17:06
PROVIDERS: ATTEND Nurse Practitioner Psychiatric/Mental Health
DX: F25.9 Schizoaffective disorder, unspecified (principal)

== ENCOUNTER → 2022-01-27 | Outpatient (REF) | payer OTHER ==
[2022-01-27 17:50] LABS: BASO % 0.6 % (0.0-1.0); EOS # 0.1 10^3/uL (0.0-0.5); EOS % 1.6 % (0.0-3.0); HEMATOCRIT 30.8 % (36.0-47.0); HEMOGLOBIN 9.7 g/dl (12.0-15.5); LYMPH # 2.3 10^3/uL (1.5-5.0); LYMPH % 44.3 % (24.0-44.0); MEAN CORPUSCULAR HEMOGLOBIN 29.5 pg (27.0-33.0); MEAN CORPUSCULAR HGB CONC 31.5 g/dl (32.0-36.5); MEAN CORPUSCULAR VOLUME 93.6 fl (80.0-96.0); MONO # 0.5 10^3/uL (0.0-0.8); MONO % 10.6 % (2.0-8.0); NEUTROPHILS # 2.2 10^3/uL (1.5-8.5); NEUTROPHILS % 42.5 % (36.0-66.0); PLATELET COUNT, AUTOMATED 275 10^3/uL (150-450); RED BLOOD COUNT 3.29 10^6/uL (4.00-5.40); WHITE BLOOD COUNT 5.1 10^3/uL (4.0-10.0)
== END ==
LOC: M LABDRAWC 16:57 → M LAB REF 16:57
PROVIDERS: ATTEND Nurse Practitioner Psychiatric/Mental Health
DX: F25.9 Schizoaffective disorder, unspecified (principal)

== ENCOUNTER → 2022-02-15 | Outpatient (REF) | payer OTHER | LOC: M SFHCWAGY 17:39 | PROVIDERS: ATTEND Advanced Practice Midwife | DX: Z12.4 Encounter for screening for malignant neoplasm of cervix (principal) ==

== ENCOUNTER 2022-03-01 19:44 | Emergency (ER) | payer OTHER ==
[~2022-03-01] VITALS: Ht 162.6 cm; Wt 82.7 kg
[~2022-03-01 19:44] MED LIST changes: -ACET-907 PO; -CLOZ50TA; -FERR325T19; -HALO10TA20; -HYDR50CA2; -IBUP1TAB6 PO; -NYST-13 EXT; -VENL37.52 PO; -VENL37.598
[2022-03-01] MEDS ORDERED: FERR325T19 (20:52)
[2022-03-01] MEDS ORDERED: HALO10TA20 (20:52)
[2022-03-01] MEDS ORDERED: VENL37.598 (20:52)
[2022-03-01] MEDS ORDERED: HYDR50CA2 (20:52)
[2022-03-01] MEDS ORDERED: CLOZ50TA (20:52)
[2022-03-01 21:25] LABS: BASO % 0.4 % (0.0-1.0); EOS # 0.1 10^3/uL (0.0-0.5); EOS % 2.5 % (0.0-3.0); HEMATOCRIT 29.4 % (36.0-47.0); HEMOGLOBIN 9.5 g/dl (12.0-15.5); LYMPH # 2.2 10^3/uL (1.5-5.0); MEAN CORPUSCULAR HEMOGLOBIN 29.1 pg (27.0-33.0); MEAN CORPUSCULAR HGB CONC 32.3 g/dl (32.0-36.5); MEAN CORPUSCULAR VOLUME 90.2 fl (80.0-96.0); MONO # 0.6 10^3/uL (0.0-0.8); MONO % 11.4 % (2.0-8.0); NEUTROPHILS # 2.3 10^3/uL (1.5-8.5); NEUTROPHILS % 43.5 % (36.0-66.0); PLATELET COUNT, AUTOMATED 245 10^3/uL (150-450); RED BLOOD COUNT 3.26 10^6/uL (4.00-5.40); WHITE BLOOD COUNT 5.3 10^3/uL (4.0-10.0)
[2022-03-01 21:35] LABS: URINE PREG TEST NEGATIVE (NEGATIVE)
[2022-03-01] MEDS ORDERED: HALO10TA20 PO (21:41)
[2022-03-01] MEDS ORDERED: NYST-13 EXT (21:41)
[2022-03-01] MEDS ORDERED: IBUP1TAB6 PO (21:41)
[2022-03-01] MEDS ORDERED: ACET-907 PO (21:41)
[2022-03-01] MEDS ORDERED: VENL37.52 PO (21:41)
[2022-03-01] MEDS ORDERED: FERR1TAB8 PO (21:41)
[2022-03-01] MEDS ORDERED: CLOZ100T5 PO (21:41)
[2022-03-01] MEDS ORDERED: HALD100I2 IM (21:41)
[2022-03-01 21:48] LABS: VALPROIC ACID (DEPAKOTE) 18.3 UG/ML (50.0-100.0)
[2022-03-01 21:49] LABS: BILIRUBIN,DIRECT < 0.1 MG/DL (<0.4)
[2022-03-01 21:51] LABS: ALBUMIN 2.9 G/DL (3.2-5.2); ALKALINE PHOSPHATASE 35 U/L (46-116); ALT/SGPT 51 U/L (7.0-40); AST/SGOT 33 U/L (<34); BILIRUBIN,TOTAL 0.2 MG/DL (0.3-1.2); BLOOD UREA NITROGEN 17 MG/DL (9-23); CALCIUM LEVEL 8.9 MG/DL (8.5-10.1); CARBON DIOXIDE LEVEL 26 MMOL/L (20-31); CHLORIDE LEVEL 107 MMOL/L (98-107); CREATININE FOR GFR 0.46 MG/DL (0.55-1.30); GLOMERULAR FILTRATION RATE > 60.0 (>60); GLUCOSE, FASTING 97 MG/DL (60-100); POTASSIUM SERUM 4.3 MMOL/L (3.5-5.1); SODIUM LEVEL 140 MMOL/L (136-145); TOTAL PROTEIN 6.2 G/DL (5.7-8.2)
[2022-03-01 21:59] LABS: BARBITURATES URINE NEGATIVE (NEGATIVE); COCAINE METABOLITE URINE NEGATIVE (NEGATIVE); METHADONE URINE NEGATIVE (NEGATIVE); OPIATES URINE NEGATIVE (NEGATIVE)
[2022-03-01 22:00] LABS: AMPHETAMINES LEVEL URINE NEGATIVE (NEGATIVE); BENZODIAZEPINES URINE NEGATIVE (NEGATIVE); CANNABINOIDS URINE NEGATIVE (NEGATIVE); PHENCYCLIDINE URINE NEGATIVE (NEGATIVE)
[2022-03-01] MEDS ORDERED: HOME MED LIST COMPLETE! XX SCH (22:05)
[2022-03-01 23:26] VITALS: BP 130/73
== END 2022-03-01 23:32 | disposition home or self-care (01) ==
LOC: EDBD 19:44 → M ED 19:44
DX: R56.9 Unspecified convulsions (principal); F20.9 Schizophrenia, unspecified; D64.9 Anemia, unspecified; E55.9 Vitamin D deficiency, unspecified; F17.200 Nicotine dependence, unspecified, uncomplicated; Z88.0 Allergy status to penicillin; Z88.8 Allergy status to other drugs, medicaments and biological substances; R00.0 Tachycardia, unspecified; Z79.899 Other long term (current) drug therapy

== ENCOUNTER → 2022-03-01 | Outpatient (REF) | payer OTHER ==
[~2022-03-01] MED LIST changes: +ACET-907 PO; +CLOZ50TA; +FERR325T19; +HALO10TA20; +HYDR50CA2; +IBUP1TAB6 PO; +NYST-13 EXT; +VENL37.52 PO; +VENL37.598
[2022-03-01 17:37] LABS: BASO % 0.5 % (0.0-1.0); EOS # 0.1 10^3/uL (0.0-0.5); EOS % 2.3 % (0.0-3.0); HEMOGLOBIN 10.2 g/dl (12.0-15.5); LYMPH # 2.1 10^3/uL (1.5-5.0); LYMPH % 47.8 % (24.0-44.0); MEAN CORPUSCULAR HGB CONC 31.9 g/dl (32.0-36.5); MEAN CORPUSCULAR VOLUME 90.9 fl (80.0-96.0); MONO # 0.7 10^3/uL (0.0-0.8); MONO % 16.5 % (2.0-8.0); NEUTROPHILS # 1.4 10^3/uL (1.5-8.5); NEUTROPHILS % 32.7 % (36.0-66.0); PLATELET COUNT, AUTOMATED 268 10^3/uL (150-450); RED BLOOD COUNT 3.52 10^6/uL (4.00-5.40); WHITE BLOOD COUNT 4.4 10^3/uL (4.0-10.0)
== END ==
LOC: M LABDRAWC 16:48
PROVIDERS: ATTEND Nurse Practitioner Psychiatric/Mental Health
DX: F25.9 Schizoaffective disorder, unspecified (principal)

== ENCOUNTER 2022-03-29 12:26 | Emergency (ER) | payer OTHER ==
[~2022-03-29] VITALS: Ht 162.6 cm; Wt 80.3 kg
[~2022-03-29 12:26] MED LIST changes: +ACET-907 PO; +CLOZ50TA; +FERR325T19; +HALO10TA20; +HYDR50CA2; +IBUP1TAB6 PO; +NYST-13 EXT; +VENL37.52 PO; +VENL37.598
[2022-03-29 12:29] VITALS: BP 116/73
[2022-03-29 14:19] LABS: HEMATOCRIT 36.1 % (36.0-47.0); HEMOGLOBIN 11.7 g/dl (12.0-15.5); MEAN CORPUSCULAR HEMOGLOBIN 28.2 pg (27.0-33.0); MEAN CORPUSCULAR HGB CONC 32.4 g/dl (32.0-36.5); PLATELET COUNT, AUTOMATED 248 10^3/uL (150-450); RED BLOOD COUNT 4.15 10^6/uL (4.00-5.40); WHITE BLOOD COUNT 5.3 10^3/uL (4.0-10.0)
[2022-03-29 14:47] LABS: BLOOD UREA NITROGEN 9 MG/DL (9-23); CALCIUM LEVEL 9.4 MG/DL (8.5-10.1); CARBON DIOXIDE LEVEL 28 MMOL/L (20-31); CHLORIDE LEVEL 106 MMOL/L (98-107); CREATININE FOR GFR 0.49 MG/DL (0.55-1.30); GLOMERULAR FILTRATION RATE > 60.0 (>60); GLUCOSE, FASTING 84 MG/DL (60-100); HCG, SERUM QUALITATIVE NEGATIVE (NEGATIVE); POTASSIUM SERUM 4.4 MMOL/L (3.5-5.1); SODIUM LEVEL 138 MMOL/L (136-145)
[2022-03-30] MEDS ORDERED: COLA100C5 PO (15:08)
== END 2022-03-29 16:09 | disposition left against medical advice (07) ==
LOC: M ED 12:26
DX: Z53.21 Procedure and treatment not carried out due to patient leaving prior to being seen by health care provider (principal)

== ENCOUNTER 2022-03-30 09:32 | Emergency (ER) | payer OTHER ==
[~2022-03-30] VITALS: Ht 162.6 cm; Wt 78.7 kg
[2022-03-30 13:50] VITALS: BP 127/86
[2022-03-30 14:47] LABS: HEMATOCRIT 35.6 % (36.0-47.0); HEMOGLOBIN 11.4 g/dl (12.0-15.5); MEAN CORPUSCULAR HEMOGLOBIN 27.7 pg (27.0-33.0); MEAN CORPUSCULAR VOLUME 86.4 fl (80.0-96.0); RED BLOOD COUNT 4.12 10^6/uL (4.00-5.40); WHITE BLOOD COUNT 5.6 10^3/uL (4.0-10.0)
[2022-03-30 14:48] LABS: BASO % 0.4 % (0.0-1.0); EOS # 0.2 10^3/uL (0.0-0.5); EOS % 3.1 % (0.0-3.0); LYMPH # 2.7 10^3/uL (1.5-5.0); LYMPH % 47.7 % (24.0-44.0); MONO # 0.4 10^3/uL (0.0-0.8); MONO % 6.8 % (2.0-8.0); NEUTROPHILS # 2.3 10^3/uL (1.5-8.5); NEUTROPHILS % 41.6 % (36.0-66.0); PLATELET COUNT, AUTOMATED 252 10^3/uL (150-450)
[2022-03-30] MEDS ORDERED: COLA100C5 PO (15:08)
== END 2022-03-30 15:23 | disposition home or self-care (01) ==
LOC: M ED 09:32
DX: K64.9 Unspecified hemorrhoids (principal); K62.5 Hemorrhage of anus and rectum; D50.9 Iron deficiency anemia, unspecified; K58.9 Irritable bowel syndrome, unspecified; R56.9 Unspecified convulsions; J45.909 Unspecified asthma, uncomplicated; F25.9 Schizoaffective disorder, unspecified; F31.9 Bipolar disorder, unspecified; E78.5 Hyperlipidemia, unspecified; F17.200 Nicotine dependence, unspecified, uncomplicated; Z88.0 Allergy status to penicillin; Z88.8 Allergy status to other drugs, medicaments and biological substances; Z79.899 Other long term (current) drug therapy

== ENCOUNTER → 2022-06-30 | Outpatient (CLI) | payer OTHER ==
[~2022-06-30] MED LIST changes: -BENZ-52 PO; +BENZ1TAB5 PO; -CLOZ50TA; -CLOZ50TA PO; +CLOZ50TA4; +CLOZ50TA4 PO; +DOCU100C16 PO; +FERR325T19 PO; -FLUO10TA2 PO; +FLUO1TAB PO; +FLUT50SP17 NARES; -FLUTISP NARES; +HYDR1TAB33 PO; +LIDO15SO2 SSP; -LIDO2SO SSP; +PRAZ2CAP PO; +VENL37.598 PO
[2022-06-30 15:47] LABS: THYROID STIMULATING HORMONE 1.757 uIU/ML (0.55-4.78)
== END ==
LOC: M PLALAB 13:49
PROVIDERS: ATTEND Student in an Organized Health Care Education/Training Program
DX: Z13.29 Encounter for screening for other suspected endocrine disorder (principal)

== ENCOUNTER 2022-07-14 05:58 | Day surgery (SDC) | payer OTHER ==
[~2022-07-14] VITALS: Ht 162.6 cm; Wt 86.2 kg
[2022-07-14] MEDS ORDERED: LR 1,000 ML IV SCH ×2 (06:35→10:35)
[2022-07-14] MEDS ORDERED: CLINDAMYCIN 900 MG in IV 1 EA IV ONE (06:45)
[2022-07-14] MEDS ORDERED: propofoL 200 MG/20 ML VIAL As Ordered ONE ×2 (06:48→06:51)
[2022-07-14] MEDS ORDERED: ROCURONIUM BROMIDE 50MG/5ML VIAL As Ordered ONE (06:48)
[2022-07-14] MEDS ORDERED: LIDOCAINE 2% 100MG/5ML SDV (FOR ANES.) As Ordered ONE (06:48)
[2022-07-14] MEDS ORDERED: SUGAMMADEX SODIUM 500 MG/5 ML VIAL (BRIDION) As Ordered ONE (06:49)
[2022-07-14] MEDS ORDERED: ACETAMINOPHEN 1000MG 100ML IV BAG As Ordered ONE (06:49)
[2022-07-14] MEDS ORDERED: ONDANSETRON 4MG 2ML VIAL As Ordered ONE (06:49)
[2022-07-14] MEDS ORDERED: KETOROLAC 60MG 2ML VIAL As Ordered ONE (06:49)
[2022-07-14] MEDS ORDERED: OXYMETAZOLINE 0.05% NASAL SPRAY (AFRIN) As Ordered ONE (07:13)
[2022-07-14] MEDS ORDERED: fentaNYL 100 MCG/2 ML INJECTION As Ordered ONE (07:17)
[2022-07-14] MEDS ORDERED: CHLORHEXIDINE GLUCONATE 0.12 % 15ML UDC (PERIDEX ORAL RINSE) As Ordered ONE (07:18)
[2022-07-14] MEDS ORDERED: MIDAZOLAM INJ 2MG/2ML VIAL As Ordered ONE (07:18)
[2022-07-14] MEDS ORDERED: BUPIVACAINE LIPOSOME/PF 1.3% 20ML VIAL (13.3MG/ML)(EXPAREL) As Ordered ONE (07:19)
[2022-07-14] MEDS ORDERED: LIDOCAINE 2% W/ EPINEPHRINE 1.7 ML DENTAL INJ As Ordered ONE (07:19)
[2022-07-14 07:58] LABS: HCG, SERUM QUALITATIVE NEGATIVE (NEGATIVE)
[2022-07-14] MEDS ORDERED: PHENYLephrine 500MCG 5ML (100MCG/ML) SYRINGE As Ordered ONE (10:08)
[2022-07-14] MEDS ORDERED: ONDANSETRON 4MG 2ML VIAL IV PRN (10:35)
[2022-07-14] MEDS ORDERED: HYDROMORPHONE HCL 0.5 MG/ 0.5 ML SYRINGE IV PRN (10:35)
[2022-07-14] MEDS ORDERED: oxyCODONE 5MG TAB PO PRN (10:35)
[2022-07-14] MEDS ORDERED: fentaNYL 100 MCG/2 ML INJECTION IV PRN (10:35)
[2022-07-14 11:30] VITALS: BP 130/84
== END 2022-07-14 11:58 | disposition home or self-care (01) ==
LOC: M SDC 05:58
PROVIDERS: ATTEND Dentist
DX: K02.9 Dental caries, unspecified (principal); K25.9 Gastric ulcer, unspecified as acute or chronic, without hemorrhage or perforation; Z87.19 Personal history of other diseases of the digestive system; D64.9 Anemia, unspecified; F41.9 Anxiety disorder, unspecified; F31.81 Bipolar II disorder; F25.9 Schizoaffective disorder, unspecified; J45.909 Unspecified asthma, uncomplicated; Z88.0 Allergy status to penicillin; Z88.8 Allergy status to other drugs, medicaments and biological substances; Z79.899 Other long term (current) drug therapy
CPT/HCPCS: 36415; 84703; 88300; C9290; D7140; D7210; D9223; J0131; J1100; J1885; J2250; J2370; J2405; J3010

== ENCOUNTER → 2022-10-03 | Outpatient (REF) | payer OTHER ==
[~2022-10-03] MED LIST changes: +NYST100085 TOP; -NYSTOI TOP
== END ==
LOC: M SFHCWAGY 10:11
PROVIDERS: ATTEND Nurse Practitioner Family
DX: N75.0 Cyst of Bartholin's gland (principal)

== ENCOUNTER → 2023-03-09 | Outpatient (REF) | payer OTHER ==
[~2023-03-09] MED LIST changes: +CEFD1CAP9; +CEFD1CAP9 PO; -CEFD300C41; -CEFD300C41 PO; -FLUT50SP17 NARES; +FLUTISP NARES
[2023-03-09 17:56] LABS: APPEARANCE, URINE HAZY (CLEAR); BACTERIA, URINE AUTO NEGATIVE (NEGATIVE); BILIRUBIN, URINE AUTO NEGATIVE (NEGATIVE); BLOOD, URINE BLOOD NEGATIVE (NEGATIVE); COLOR, URINE YELLOW (YELLOW); GLUCOSE, URINE (UA) AUTO NEGATIVE (NEGATIVE); KETONE, URINE AUTO NEGATIVE (NEGATIVE); LEUKOCYTE ESTERASE, URINE AUTO TRACE (NEGATIVE); MUCUS, URINE SMALL (NEGATIVE); NITRITE, URINE AUTO NEGATIVE (NEGATIVE); PROTEIN, URINE AUTO NEGATIVE (NEGATIVE); RBC, URINE AUTO 1 /HPF (0-3); SPECIFIC GRAVITY URINE AUTO 1.011 (1.002-1.035); SQUAMOUS EPITHELIAL CELL UR AU 9 /HPF (0-6); UROBILINOGEN, URINE AUTO 0.2 mg/dL (0.0-2.0); WBC, URINE AUTO 2 /HPF (0-3)
== END ==
LOC: M SFHCPLAZ 16:58
PROVIDERS: ATTEND Student in an Organized Health Care Education/Training Program
DX: Z13.1 Encounter for screening for diabetes mellitus (principal)

== ENCOUNTER → 2023-03-10 | Outpatient (REF) | payer OTHER ==
[2023-03-10 11:57] LABS: HEMATOCRIT 33.5 % (36.0-47.0); HEMOGLOBIN 11.1 g/dl (12.0-15.5); MEAN CORPUSCULAR HEMOGLOBIN 31.2 pg (27.0-33.0); MEAN CORPUSCULAR HGB CONC 33.1 g/dl (32.0-36.5); MEAN CORPUSCULAR VOLUME 94.1 fl (80.0-96.0); PLATELET COUNT, AUTOMATED 247 10^3/uL (150-450); RED BLOOD COUNT 3.56 10^6/uL (4.00-5.40); WHITE BLOOD COUNT 8.4 10^3/uL (4.0-10.0)
[2023-03-10 12:02] LABS: IRON (FE) 82 UG/DL (50-170); PERCENT SATURATION 25.3 % (13.2-45.0); TOTAL IRON BINDING CAPACITY 324 UG/DL (250-425)
[2023-03-10 12:03] LABS: ALBUMIN 3.6 G/DL (3.2-5.2); ALKALINE PHOSPHATASE 38 U/L (46-116); ALT/SGPT 23 U/L (7.0-40); AST/SGOT 13 U/L (<34); BILIRUBIN,TOTAL 0.2 MG/DL (0.3-1.2); BLOOD UREA NITROGEN 11 MG/DL (9-23); CALCIUM LEVEL 9.5 MG/DL (8.5-10.1); CARBON DIOXIDE LEVEL 26 MMOL/L (20-31); CHLORIDE LEVEL 110 MMOL/L (98-107); CHOLESTEROL LEVEL 214 MG/DL (<200); CHOLESTEROL RISK RATIO 5.57 (<5); CREATININE FOR GFR 0.54 MG/DL (0.55-1.30); GLOMERULAR FILTRATION RATE > 60.0 (>60); GLUCOSE, FASTING 99 MG/DL (60-100); HDL CHOLESTEROL 38.4 MG/DL (>40); LDL CHOLESTEROL 149.4 MG/DL (<100); NON-HDL-C 175.6 MG/DL; POTASSIUM SERUM 4.4 MMOL/L (3.5-5.1); SODIUM LEVEL 140 MMOL/L (136-145); TRIGLYCERIDES LEVEL 131 MG/DL (<150)
[2023-03-10 12:07] LABS: TOTAL 25(OH) VITAMIN D 25.2 NG/ML (20.0-100.0)
[2023-03-10 12:20] LABS: HEMOGLOBIN A1c 5.5 % (4.0-6.0)
== END ==
LOC: M SFHCPLAZ 08:45
PROVIDERS: ATTEND Internal Medicine Hematology
DX: E61.1 Iron deficiency (principal); E88.810 Metabolic syndrome; Z13.220 Encounter for screening for lipoid disorders; Z13.1 Encounter for screening for diabetes mellitus; Z13.21 Encounter for screening for nutritional disorder

== ENCOUNTER → 2023-08-02 | Outpatient (REF) | payer OTHER ==
[~2023-08-02] MED LIST changes: +DOXY-323 PO; -DOXY-443 PO; +FLUO-290 PO; -FLUO10CA18 PO; -LIDO15SO2 SSP; +LIDO15SO9 SSP; -MIRA1POW3 PO; +MIRA33506 PO
== END ==
LOC: M SFHCWAGY 14:48
PROVIDERS: ATTEND Nurse Practitioner Family
DX: L72.3 Sebaceous cyst (principal)

== ENCOUNTER → 2023-10-16 | Outpatient (REF) | payer OTHER ==
[~2023-10-16] MED LIST changes: +FLUO-365 PO; -FLUO20CA22 PO; -OLAN20TA14 PO; +OLAN20TA53 PO; +ONDA-282 PO; -ONDA4TAB6 PO
[2023-10-16 18:54] LABS: HEMOGLOBIN A1c 5.6 % (4.0-6.0)
[2023-10-18 11:31] LABS: SSA SJOGRENS A <1.0 NEG AI (<1.0 NEG); SSB SJOGRENS B <1.0 NEG AI (<1.0 NEG)
[2023-10-18 15:24] LABS: ANA PATTERN Nuclear, Nucleolar (NEGATIVE); ANA SCREEN, IFA POSITIVE (NEGATIVE)
== END ==
LOC: M SFHCPLAZ 13:19
PROVIDERS: ATTEND Internal Medicine Hematology
DX: K11.7 Disturbances of salivary secretion (principal)

== ENCOUNTER 2023-11-28 01:42 | Inpatient (IN) | payer MEDICAID, OTHER ==
[~2023-11-28] VITALS: Ht 162.6 cm; Wt 97.5 kg
[2023-11-28 02:55] LABS: HEMATOCRIT 33.8 % (36.0-47.0); MEAN CORPUSCULAR HGB CONC 32.5 g/dl (32.0-36.5); MEAN CORPUSCULAR VOLUME 95.2 fl (80.0-96.0); PLATELET COUNT, AUTOMATED 391 10^3/uL (150-450); RED BLOOD COUNT 3.55 10^6/uL (4.00-5.40); WHITE BLOOD COUNT 11.7 10^3/uL (4.0-10.0)
[2023-11-28 03:18] LABS: ETHYL ALCOHOL (ETHANOL) < 0.003 % (0.000-0.010)
[2023-11-28 03:19] LABS: SALICYLATE LEVEL < 3.0 MG/DL (<30)
[2023-11-28 03:28] LABS: AMPHETAMINES LEVEL URINE NEGATIVE (NEGATIVE); BARBITURATES URINE NEGATIVE (NEGATIVE); BENZODIAZEPINES URINE NEGATIVE (NEGATIVE); COCAINE METABOLITE URINE NEGATIVE (NEGATIVE); METHADONE URINE NEGATIVE (NEGATIVE)
[2023-11-28 03:29] LABS: CANNABINOIDS URINE NEGATIVE (NEGATIVE); OPIATES URINE NEGATIVE (NEGATIVE); PHENCYCLIDINE URINE NEGATIVE (NEGATIVE)
[2023-11-28 03:31] LABS: ALBUMIN 4.2 G/DL (3.2-5.2); ALKALINE PHOSPHATASE 42 U/L (46-116); ALT/SGPT 33 U/L (7.0-40); AST/SGOT 50 U/L (<34); BILIRUBIN,DIRECT < 0.1 MG/DL (<0.4); BILIRUBIN,TOTAL 0.2 MG/DL (0.3-1.2); BLOOD UREA NITROGEN 8 MG/DL (9-23); CALCIUM LEVEL 9.5 MG/DL (8.5-10.1); CARBON DIOXIDE LEVEL 25 MMOL/L (20-31); CHLORIDE LEVEL 108 MMOL/L (98-107); CREATININE FOR GFR 0.55 MG/DL (0.55-1.30); GLOMERULAR FILTRATION RATE > 60.0 (>60); GLUCOSE, FASTING 100 MG/DL (60-100); POTASSIUM SERUM 4.7 MMOL/L (3.5-5.1); SODIUM LEVEL 136 MMOL/L (136-145); THYROID STIMULATING HORMONE 2.481 uIU/ML (0.55-4.78); TOTAL PROTEIN 7.7 G/DL (5.7-8.2)
[2023-11-28 05:17] LABS: Trichomonas vaginalis (AMP) NOT DETECTED (NEGATIVE)
[2023-11-28 05:23] LABS: HIV 1&2 SCREEN NEGATIVE (NEGATIVE)
[2023-11-28 05:41] LABS: GC DNA AMPLIFICATION NEGATIVE (NEGATIVE)
[2023-11-28] MEDS ORDERED: MOM 30ML SUSPENSION UDC PO PRN (06:20)
[2023-11-28] MEDS ORDERED: ACETAMINOPHEN TAB 650MG DOSE (2X325MG) PO PRN (06:20)
[2023-11-28] MEDS ORDERED: MAALOX 30 ML SUSP *UDC PO PRN (06:20)
[2023-11-28] MEDS ORDERED: ACET-897 PO (06:36)
[2023-11-28] MEDS ORDERED: HOME MED LIST COMPLETE! XX SCH (06:40)
[2023-11-28 12:07] VITALS: BP 133/86; TEMP 98.7; O2SAT 97
[2023-11-28] MEDS ORDERED: NICOTINE 21MG/24HR 1 EA TRANSDERMAL TD PRN (12:15)
[2023-11-28 14:28] LABS: HCG, SERUM QUANTITATIVE < 2.6 MIU/ML (<4.2)
[2023-11-28] MEDS: diphenhydrAMINE 25MG CAP PO PRN (19:03)
[2023-11-28] MEDS: traZODone 50 MG TAB PO PRN (20:56)
[2023-11-28 21:04] VITALS: BP 170/77; TEMP 97.6; O2SAT 98
[2023-11-28] MEDS: LORazepam 2 MG/ML 1ML VIAL IM STA (21:26)
[2023-11-28 23:17] LABS: BASO % 0.4 % (0.0-1.0); EOS # 0.3 10^3/uL (0.0-0.5); HEMATOCRIT 32.4 % (36.0-47.0); HEMOGLOBIN 10.7 g/dl (12.0-15.5); LYMPH # 4.9 10^3/uL (1.5-5.0); LYMPH % 43.9 % (24.0-44.0); MEAN CORPUSCULAR HEMOGLOBIN 31.4 pg (27.0-33.0); NEUTROPHILS # 4.8 10^3/uL (1.5-8.5); NEUTROPHILS % 43.1 % (36.0-66.0); PLATELET COUNT, AUTOMATED 334 10^3/uL (150-450); RED BLOOD COUNT 3.41 10^6/uL (4.00-5.40); WHITE BLOOD COUNT 11.1 10^3/uL (4.0-10.0)
[2023-11-29 00:11] LABS: ALBUMIN 3.8 G/DL (3.2-5.2); ALKALINE PHOSPHATASE 45 U/L (46-116); ALT/SGPT 27 U/L (7.0-40); AST/SGOT 21 U/L (<34); BILIRUBIN,TOTAL 0.2 MG/DL (0.3-1.2); BLOOD UREA NITROGEN 10 MG/DL (9-23); CALCIUM LEVEL 9.3 MG/DL (8.5-10.1); CARBON DIOXIDE LEVEL 27 MMOL/L (20-31); CHLORIDE LEVEL 110 MMOL/L (98-107); GLOMERULAR FILTRATION RATE > 60.0 (>60); GLUCOSE, FASTING 98 MG/DL (60-100); MAGNESIUM LEVEL 1.9 MG/DL (1.8-2.4); POTASSIUM SERUM 3.8 MMOL/L (3.5-5.1); PROLACTIN 19.98 NG/ML; SODIUM LEVEL 139 MMOL/L (136-145); TOTAL PROTEIN 7.1 G/DL (5.7-8.2)
[2023-11-29 00:41] LABS: CPK CREATINE PHOSPHOKINASE 634 U/L (34-145)
[2023-11-29] MEDS: VITAMIN D 1,000 INTERNATIONAL UNITS TABLET PO SCH (10:31)
[2023-11-29] MEDS: PANTOPRAZOLE 40MG TAB (PROTONIX) PO SCH (10:31)
[2023-11-29] MEDS: DOCUSATE SODIUM 100MG CAPSULE PO SCH (10:31)
[2023-11-29] MEDS: FERROUS SULFATE 325MG TAB PO SCH (10:32)
[2023-11-29 11:37] VITALS: BP 145/70; TEMP 96.8; O2SAT 98
[2023-11-29 14:35] VITALS: BP 142/72; O2SAT 97
[2023-11-29] MEDS: CEPHALEXIN 500 MG CAP PO SCH (14:42)
[2023-11-29 15:08] VITALS: O2SAT 97
[2023-11-29 15:10] VITALS: O2SAT 97
[2023-11-29] MEDS ORDERED: LORazepam 2 MG/ML 1ML VIAL As Ordered ONE (15:28)
[2023-11-29] MEDS: LORazepam 2 MG/ML 1ML VIAL IM STA ×2 (15:39→16:51)
[2023-11-29] MEDS: HALOPERIDOL LACTATE 5MG/ML VIAL IM STA ×2 (15:39→16:51)
[2023-11-29] MEDS: diphenhydrAMINE 50MG/ML VIAL IM STA (16:51)
[2023-11-29 19:09] VITALS: BP 144/77; TEMP 97.6; O2SAT 97
[2023-11-30] MEDS: IBUPROFEN 400MG TAB PO PRN (05:20)
[2023-11-30 06:33] VITALS: BP 150/71; TEMP 97; O2SAT 97
[2023-11-30] MEDS: FOLIC ACID 1MG TAB PO SCH (09:00)
[2023-11-30] MEDS: ONDANSETRON 4MG TAB PO PRN (10:11)
[2023-11-30] MEDS ORDERED: CEPH500C PO (10:43)
[2023-11-30 17:07] LABS: HSV SOURCE Whole Blood; HSV-1 DNA Not Detected (Not Detected); HSV-2 DNA Not Detected (Not Detected)
== END 2023-11-30 13:35 | disposition home or self-care (01) | DRG 750 ==
LOC: M ED 01:42 → EDBD 01:42 → EDSEX 01:42 → M ED INP 06:17 → M PSY 11:43
PROVIDERS: ADMIT Psychiatry & Neurology Psychiatry; ATTEND Psychiatry & Neurology Psychiatry
DX: F25.0 Schizoaffective disorder, bipolar type (principal); R45.851 Suicidal ideations; Z78.1 Physical restraint status; F17.210 Nicotine dependence, cigarettes, uncomplicated; D50.9 Iron deficiency anemia, unspecified; E55.9 Vitamin D deficiency, unspecified; K21.9 Gastro-esophageal reflux disease without esophagitis; L73.9 Follicular disorder, unspecified; L02.224 Furuncle of groin; M25.531 Pain in right wrist; M79.89 Other specified soft tissue disorders; Z65.2 Problems related to release from prison; Z62.811 Personal history of psychological abuse in childhood; Z91.51 Personal history of suicidal behavior; Z79.899 Other long term (current) drug therapy; Z88.0 Allergy status to penicillin; Z88.8 Allergy status to other drugs, medicaments and biological substances

== ENCOUNTER 2023-12-02 18:13 | Emergency (ER) | payer MEDICAID, OTHER ==
[~2023-12-02 18:13] MED LIST changes: +ACET-897 PO; +CEPH500C PO
[2023-12-02 18:59] LABS: HEMATOCRIT 32.7 % (36.0-47.0); HEMOGLOBIN 10.8 g/dl (12.0-15.5); MEAN CORPUSCULAR HEMOGLOBIN 31.3 pg (27.0-33.0); MEAN CORPUSCULAR VOLUME 94.8 fl (80.0-96.0); PLATELET COUNT, AUTOMATED 324 10^3/uL (150-450); RED BLOOD COUNT 3.45 10^6/uL (4.00-5.40); WHITE BLOOD COUNT 10.5 10^3/uL (4.0-10.0)
[2023-12-02 19:16] LABS: AMPHETAMINES LEVEL URINE NEGATIVE (NEGATIVE); BARBITURATES URINE NEGATIVE (NEGATIVE); BENZODIAZEPINES URINE NEGATIVE (NEGATIVE); CANNABINOIDS URINE NEGATIVE (NEGATIVE); COCAINE METABOLITE URINE NEGATIVE (NEGATIVE); METHADONE URINE NEGATIVE (NEGATIVE); OPIATES URINE NEGATIVE (NEGATIVE); PHENCYCLIDINE URINE NEGATIVE (NEGATIVE)
[2023-12-02 19:19] LABS: ETHYL ALCOHOL (ETHANOL) < 0.003 % (0.000-0.010)
[2023-12-02 19:20] LABS: ALBUMIN 4.3 G/DL (3.2-5.2); ALKALINE PHOSPHATASE 51 U/L (46-116); ALT/SGPT 44 U/L (7.0-40); AST/SGOT 50 U/L (<34); BILIRUBIN,DIRECT < 0.1 MG/DL (<0.4); BILIRUBIN,TOTAL 0.2 MG/DL (0.3-1.2); BLOOD UREA NITROGEN 7 MG/DL (9-23); CALCIUM LEVEL 9.7 MG/DL (8.5-10.1); CARBON DIOXIDE LEVEL 27 MMOL/L (20-31); CHLORIDE LEVEL 110 MMOL/L (98-107); CREATININE FOR GFR 0.58 MG/DL (0.55-1.30); GLOMERULAR FILTRATION RATE > 60.0 (>60); GLUCOSE, FASTING 90 MG/DL (60-100); POTASSIUM SERUM 4.4 MMOL/L (3.5-5.1); SALICYLATE LEVEL < 3.0 MG/DL (<30); SODIUM LEVEL 137 MMOL/L (136-145); TOTAL PROTEIN 7.6 G/DL (5.7-8.2)
[2023-12-02 19:21] LABS: HCG, SERUM QUALITATIVE NEGATIVE (NEGATIVE)
[2023-12-02 19:22] LABS: THYROID STIMULATING HORMONE 0.926 uIU/ML (0.55-4.78)
[2023-12-02] MEDS ORDERED: VENL150C43 PO (23:02)
[2023-12-02] MEDS ORDERED: PRAZ2CAP PO (23:02)
[2023-12-02] MEDS ORDERED: HOME MED LIST COMPLETE! XX SCH (23:05)
[2023-12-03] MEDS: OLANZapine INTRAMUSCULAR 10MG VIAL IM ONE (00:12)
[2023-12-03] MEDS ORDERED: METAL LOCK LOOP XX ONE (08:19)
[2023-12-03] MEDS: VENLAFAXINE **XR** 75MG CAPSULE PO SCH (08:41)
[2023-12-03] MEDS: BENZTROPINE 1 MG TAB PO SCH (08:41)
[2023-12-03] MEDS: OMEPRAZOLE 20MG CAP PO SCH (08:41)
[2023-12-03 08:54] VITALS: BP 134/82; TEMP 97; O2SAT 96
[2023-12-04] MEDS ORDERED: CEPH500C PO (18:36)
== END 2023-12-03 08:54 | disposition home or self-care (01) ==
LOC: M ED 18:13 → EDBD 18:13 → EDSEX 18:13 → M ED 12-03 08:54
DX: F25.9 Schizoaffective disorder, unspecified (principal); F32.A Depression, unspecified; F17.210 Nicotine dependence, cigarettes, uncomplicated; F10.10 Alcohol abuse, uncomplicated; Z88.0 Allergy status to penicillin; Z88.8 Allergy status to other drugs, medicaments and biological substances; Z79.1 Long term (current) use of non-steroidal anti-inflammatories (NSAID); Z79.2 Long term (current) use of antibiotics; Z79.899 Other long term (current) drug therapy
CPT/HCPCS: 80048; 80076; 80143; 80307; 82077; 84443; 84703; 85027; 96372; 99285; J2359

== ENCOUNTER 2023-12-04 17:16 | Inpatient (IN) | payer MEDICAID, OTHER ==
[~2023-12-04] VITALS: Ht 162.6 cm; Wt 98.4 kg
[~2023-12-04 17:16] MED LIST changes: +VENL150C43 PO
[2023-12-04] MEDS: OLANZapine ORAL DISINTEGRATING TAB 5MG PO ONE (17:53)
[2023-12-04 18:19] LABS: HEMATOCRIT 33.3 % (36.0-47.0); MEAN CORPUSCULAR HEMOGLOBIN 31.4 pg (27.0-33.0); MEAN CORPUSCULAR VOLUME 95.1 fl (80.0-96.0); PLATELET COUNT, AUTOMATED 328 10^3/uL (150-450); WHITE BLOOD COUNT 9.6 10^3/uL (4.0-10.0)
[2023-12-04] MEDS ORDERED: CEPH500C PO (18:36)
[2023-12-04 18:39] LABS: ETHYL ALCOHOL (ETHANOL) < 0.003 % (0.000-0.010)
[2023-12-04 18:40] LABS: HCG, SERUM QUALITATIVE NEGATIVE (NEGATIVE)
[2023-12-04] MEDS ORDERED: HOME MED LIST COMPLETE! XX SCH (18:40)
[2023-12-04 18:41] LABS: SALICYLATE LEVEL < 3.0 MG/DL (<30)
[2023-12-04 18:45] LABS: ALBUMIN 4.5 G/DL (3.2-5.2); ALKALINE PHOSPHATASE 50 U/L (46-116); ALT/SGPT 49 U/L (7.0-40); AST/SGOT 44 U/L (<34); BILIRUBIN,DIRECT 0.1 MG/DL (<0.4); BILIRUBIN,TOTAL 0.3 MG/DL (0.3-1.2); BLOOD UREA NITROGEN 8 MG/DL (9-23); CALCIUM LEVEL 9.7 MG/DL (8.5-10.1); CARBON DIOXIDE LEVEL 29 MMOL/L (20-31); CHLORIDE LEVEL 109 MMOL/L (98-107); CREATININE FOR GFR 0.65 MG/DL (0.55-1.30); GLOMERULAR FILTRATION RATE > 60.0 (>60); GLUCOSE, FASTING 85 MG/DL (60-100); POTASSIUM SERUM 4.4 MMOL/L (3.5-5.1); SODIUM LEVEL 139 MMOL/L (136-145); THYROID STIMULATING HORMONE 1.003 uIU/ML (0.55-4.78)
[2023-12-04] MEDS: LORazepam 2 MG/ML 1ML VIAL IM ONE (19:20)
[2023-12-04] MEDS: diphenhydrAMINE 50MG/ML VIAL IM ONE (19:20)
[2023-12-05] MEDS ORDERED: IBUPROFEN 400MG TAB PO PRN (18:20)
[2023-12-05] MEDS ORDERED: MOM 30ML SUSPENSION UDC PO PRN (18:20)
[2023-12-05] MEDS: LORazepam 2 MG/ML 1ML VIAL IM ONE (18:36)
[2023-12-05] MEDS: diphenhydrAMINE 50MG/ML VIAL IM ONE (18:37)
[2023-12-05] MEDS: HALOPERIDOL LACTATE 5MG/ML VIAL IM ONE (18:37)
[2023-12-05 22:37] VITALS: BP 141/87; TEMP 97.2; O2SAT 98
[2023-12-05] MEDS: diphenhydrAMINE 25MG CAP PO PRN (22:59)
[2023-12-05] MEDS: traZODone 50 MG TAB PO PRN (22:59)
[2023-12-06] VITALS (10 sets, daily range): BP systolic 129–145; BP diastolic 69–88; TEMP 97.8–98; O2SAT 98–100
[2023-12-06] MEDS: LORazepam 1 MG TAB PO PRN (00:06)
[2023-12-06] MEDS: diphenhydrAMINE 50MG CAP PO ONE (08:06)
[2023-12-06] MEDS: LORazepam 2 MG TAB PO ONE (08:07)
[2023-12-06] MEDS ORDERED: DOCUSATE SODIUM 100MG CAPSULE PO PRN (08:20)
[2023-12-06] MEDS: VITAMIN D 1,000 INTERNATIONAL UNITS TABLET PO SCH (09:00)
[2023-12-06] MEDS: FERROUS SULFATE 325MG TAB PO SCH (09:00)
[2023-12-06] MEDS: FOLIC ACID 1MG TAB PO SCH (09:00)
[2023-12-06] MEDS: DIVALPROEX 250MG *ER* TAB PO SCH (10:04)
[2023-12-06] MEDS ORDERED: HALOPERIDOL LACTATE 5MG/ML VIAL As Ordered ONE (17:19)
[2023-12-06] MEDS ORDERED: diphenhydrAMINE 50MG/ML VIAL As Ordered ONE (17:20)
[2023-12-06] MEDS: HALOPERIDOL LACTATE 5MG/ML VIAL IM STA ×2 (17:23→21:00)
[2023-12-06] MEDS: diphenhydrAMINE 50MG/ML VIAL IM STA ×2 (17:24→20:59)
[2023-12-06] MEDS: LORazepam 2 MG/ML 1ML VIAL IM STA ×2 (17:24→20:59)
[2023-12-06 19:24] LABS: HEPATITIS B SURFACE ANTIGEN NEGATIVE (NEGATIVE)
[2023-12-06 19:37] LABS: HIV SCREEN CENTAUR SOURCE NEGATIVE (NEGATIVE)
[2023-12-07] VITALS (10 sets, daily range): BP systolic 131–142; BP diastolic 71–96; TEMP 97.2–97.7; O2SAT 97–99
[2023-12-07] MEDS: LORazepam 2 MG TAB PO ONE (11:15)
[2023-12-07] MEDS: MAALOX 30 ML SUSP *UDC PO PRN (12:27)
[2023-12-07] MEDS ORDERED: diphenhydrAMINE 50MG/ML VIAL IM STA (14:37)
[2023-12-07] MEDS ORDERED: LORazepam 2 MG/ML 1ML VIAL IM STA (14:37)
[2023-12-07] MEDS: diphenhydrAMINE 50MG CAP PO STA (15:09)
[2023-12-07] MEDS: LORazepam 2 MG TAB PO STA (15:10)
[2023-12-07] MEDS: HALOPERIDOL LACTATE 5MG/ML VIAL IM STA (17:21)
[2023-12-07] MEDS: LORazepam 2 MG/ML 1ML VIAL IM STA (17:21)
[2023-12-07] MEDS: diphenhydrAMINE 50MG/ML VIAL IM STA (17:21)
[2023-12-08 06:27] VITALS: BP 147/91; TEMP 97; O2SAT 96
[2023-12-08] MEDS: DIVALPROEX 500MG *ER* TAB PO SCH (08:05)
[2023-12-08] MEDS: LORazepam 1 MG TAB PO ONE (14:30)
[2023-12-08] MEDS: LORazepam 2 MG/ML 1ML VIAL IM STA ×2 (14:50→18:51)
[2023-12-08] MEDS: diphenhydrAMINE 50MG/ML VIAL IM STA ×2 (14:51→18:51)
[2023-12-08] MEDS: HALOPERIDOL LACTATE 5MG/ML VIAL IM STA ×2 (14:51→18:50)
[2023-12-08 17:30] VITALS: BP 147/91; TEMP 97; O2SAT 96
[2023-12-08 19:30] VITALS: BP 160/74; TEMP 97.3; O2SAT 100
[2023-12-08 19:49] VITALS: BP 160/74; TEMP 97.3; O2SAT 100
[2023-12-08 20:00] VITALS: BP 160/74; TEMP 97.3; O2SAT 100
[2023-12-09] MEDS: BENZONATATE 100MG CAPSULE PO PRN (01:00)
[2023-12-09] MEDS: diphenhydrAMINE 50MG/ML VIAL IM STA (13:37)
[2023-12-09] MEDS: HALOPERIDOL LACTATE 5MG/ML VIAL IM STA (13:38)
[2023-12-09] MEDS: LORazepam 2 MG/ML 1ML VIAL IM STA (13:38)
[2023-12-09] MEDS: diphenhydrAMINE 50MG/ML VIAL IM ONE ×2 (14:51→16:56)
[2023-12-09] MEDS: LORazepam 2 MG/ML 1ML VIAL IM ONE ×2 (14:52→16:56)
[2023-12-09] MEDS: HALOPERIDOL LACTATE 5MG/ML VIAL IM ONE ×2 (14:52→16:55)
[2023-12-09 19:45] VITALS: BP 154/72; TEMP 97.5; O2SAT 100
[2023-12-09 21:09] VITALS: BP 151/81; TEMP 98.1; O2SAT 100
[2023-12-10] MEDS: HALOPERIDOL LACTATE 5MG/ML VIAL IM STA ×3 (12:47→14:55)
[2023-12-10] MEDS: LORazepam 2 MG/ML 1ML VIAL IM STA ×3 (12:47→14:56)
[2023-12-10] MEDS: diphenhydrAMINE 50MG/ML VIAL IM STA ×3 (12:47→14:55)
[2023-12-10 13:15] VITALS: BP 129/77
[2023-12-10 13:30] VITALS: BP 130/86
[2023-12-10 19:36] VITALS: BP 131/63; TEMP 97.8; O2SAT 97
[2023-12-11] MEDS: DIVALPROEX 250MG *ER* TAB PO ONE (08:38)
[2023-12-11] MEDS ORDERED: LORazepam 2 MG/ML 1ML VIAL As Ordered ONE (11:44)
[2023-12-11] MEDS: chlorproMAZINE INJ 50MG/2ML AMP IM STA (11:45)
[2023-12-11] MEDS: LORazepam 2 MG/ML 1ML VIAL IM STA ×5 (11:46→18:27)
[2023-12-11 12:30] VITALS: BP 134/66; TEMP 97.1; O2SAT 100
[2023-12-11 12:45] VITALS: BP 132/64
[2023-12-11 13:00] VITALS: BP 131/69
[2023-12-11] MEDS: OLANZapine INTRAMUSCULAR 10MG VIAL IM ONE (15:27)
[2023-12-11] MEDS: diphenhydrAMINE 50MG/ML VIAL IM STA ×4 (16:46→19:48)
[2023-12-11] MEDS: HALOPERIDOL LACTATE 5MG/ML VIAL IM STA ×4 (16:46→19:47)
[2023-12-11 19:58] VITALS: BP 137/71; TEMP 97.4
[2023-12-12 06:25] VITALS: BP 151/89; TEMP 97.1; O2SAT 99
[2023-12-12] MEDS: DIVALPROEX 250MG *ER* TAB PO SCH (09:40)
[2023-12-12 16:26] VITALS: BP 143/82; TEMP 98; O2SAT 99
[2023-12-13] MEDS: ACETAMINOPHEN TAB 650MG DOSE (2X325MG) PO PRN (01:25)
[2023-12-13 06:10] VITALS: BP 140/83; TEMP 97.7; O2SAT 99
[2023-12-13] MEDS: DIVALPROEX 500MG *ER* TAB PO SCH (08:19)
[2023-12-13] MEDS: HALOPERIDOL DECANOATE 100 MG/ML 1ML VIAL IM ONE (11:24)
[2023-12-13 16:47] VITALS: BP 138/78; TEMP 97.4; O2SAT 100
[2023-12-14] MEDS ORDERED: HALO10TA20 PO (07:38)
[2023-12-14] MEDS ORDERED: TRAZ-257 PO (07:38)
[2023-12-14] MEDS ORDERED: FERR325T19 PO (07:38)
[2023-12-14] MEDS ORDERED: VITA100093 PO (07:38)
[2023-12-14] MEDS ORDERED: DEPA500T2 PO (07:38)
[2023-12-14] MEDS ORDERED: FOLI1TAB11 PO (07:38)
[2023-12-14] MEDS ORDERED: OMEP40CA5 PO (07:38)
[2023-12-14] MEDS ORDERED: HALD100I2 IM (07:39)
[2023-12-15] MEDS ORDERED: DIVA500T9 PO (23:04)
[2023-12-15] MEDS ORDERED: FERR325T3 PO (23:04)
[2023-12-15] MEDS ORDERED: HALD100I2 IM (23:07)
[2023-12-15] MEDS ORDERED: OMEP40CA4 PO (23:10)
[2023-12-15] MEDS ORDERED: TRAZ-257 PO (23:12)
== END 2023-12-14 10:45 | disposition home or self-care (01) | DRG 750 ==
LOC: M ED 17:16 → M ED INP 12-05 18:19 → M PSY 12-05 22:36
PROVIDERS: ADMIT Psychiatry & Neurology Psychiatry; ATTEND Psychiatry & Neurology Psychiatry
DX: F25.0 Schizoaffective disorder, bipolar type (principal); Z78.1 Physical restraint status; E55.9 Vitamin D deficiency, unspecified; D50.9 Iron deficiency anemia, unspecified; K21.9 Gastro-esophageal reflux disease without esophagitis; F60.89 Other specific personality disorders; R19.7 Diarrhea, unspecified; R33.9 Retention of urine, unspecified; R45.1 Restlessness and agitation; Z62.819 Personal history of unspecified abuse in childhood; Z79.899 Other long term (current) drug therapy; Z91.51 Personal history of suicidal behavior; Z88.0 Allergy status to penicillin; Z88.8 Allergy status to other drugs, medicaments and biological substances

== ENCOUNTER 2023-12-15 21:08 | Emergency (ER) | payer MEDICAID, OTHER ==
[~2023-12-15] VITALS: Ht 162.6 cm; Wt 98.3 kg
[~2023-12-15 21:08] MED LIST changes: -DOXY-323 PO; +DOXY-441 PO; +LITH450T11 PO; -LITH45TASA PO; -OLAN15TA13 PO; +OLAN15TA69 PO; +TRAZ-257 PO
[2023-12-15 21:51] LABS: HEMOGLOBIN 11.7 g/dl (12.0-15.5); MEAN CORPUSCULAR HEMOGLOBIN 31.3 pg (27.0-33.0); MEAN CORPUSCULAR HGB CONC 32.5 g/dl (32.0-36.5); MEAN CORPUSCULAR VOLUME 96.3 fl (80.0-96.0); PLATELET COUNT, AUTOMATED 274 10^3/uL (150-450); RED BLOOD COUNT 3.74 10^6/uL (4.00-5.40); WHITE BLOOD COUNT 10.6 10^3/uL (4.0-10.0)
[2023-12-15 22:13] LABS: BARBITURATES URINE NEGATIVE (NEGATIVE); COCAINE METABOLITE URINE NEGATIVE (NEGATIVE); METHADONE URINE NEGATIVE (NEGATIVE)
[2023-12-15 22:14] LABS: AMPHETAMINES LEVEL URINE NEGATIVE (NEGATIVE); BENZODIAZEPINES URINE NEGATIVE (NEGATIVE); CANNABINOIDS URINE NEGATIVE (NEGATIVE); OPIATES URINE NEGATIVE (NEGATIVE); PHENCYCLIDINE URINE NEGATIVE (NEGATIVE)
[2023-12-15 22:18] LABS: ALBUMIN 4.3 G/DL (3.2-5.2); ALKALINE PHOSPHATASE 51 U/L (46-116); ALT/SGPT 50 U/L (7.0-40); AST/SGOT 34 U/L (<34); BILIRUBIN,DIRECT 0.1 MG/DL (<0.4); BILIRUBIN,TOTAL 0.3 MG/DL (0.3-1.2); BLOOD UREA NITROGEN 7 MG/DL (9-23); CARBON DIOXIDE LEVEL 28 MMOL/L (20-31); CHLORIDE LEVEL 106 MMOL/L (98-107); CREATININE FOR GFR 0.71 MG/DL (0.55-1.30); GLOMERULAR FILTRATION RATE > 60.0 (>60); GLUCOSE, FASTING 102 MG/DL (60-100); POTASSIUM SERUM 4.2 MMOL/L (3.5-5.1); SALICYLATE LEVEL < 3.0 MG/DL (<30); SODIUM LEVEL 138 MMOL/L (136-145); TOTAL PROTEIN 7.8 G/DL (5.7-8.2)
[2023-12-15 22:20] LABS: ETHYL ALCOHOL (ETHANOL) < 0.003 % (0.000-0.010)
[2023-12-15] MEDS ORDERED: DIVA500T9 PO (23:04)
[2023-12-15] MEDS ORDERED: FERR325T3 PO (23:04)
[2023-12-15] MEDS ORDERED: HALD100I2 IM (23:07)
[2023-12-15] MEDS ORDERED: OMEP40CA4 PO (23:10)
[2023-12-15] MEDS ORDERED: TRAZ-257 PO (23:12)
[2023-12-15] MEDS ORDERED: HOME MED LIST COMPLETE! XX SCH (23:15)
[2023-12-16] MEDS: traZODone 100 MG TAB PO ONE (01:00)
[2023-12-16 03:52] LABS: URINE PREG TEST NEGATIVE (NEGATIVE)
[2023-12-16] MEDS: LORazepam 2 MG TAB PO ONE (05:45)
[2023-12-16] MEDS ORDERED: ACETAMINOPHEN 500 MG TAB PO PRN (09:30)
[2023-12-16] MEDS ORDERED: DOCUSATE SODIUM 100MG CAPSULE PO PRN (09:35)
[2023-12-16] MEDS ORDERED: VITAMIN D 1,000 INTERNATIONAL UNITS TABLET PO SCH (09:40)
[2023-12-16] MEDS: OMEPRAZOLE 20MG CAP PO SCH (10:29)
[2023-12-16] MEDS: DIVALPROEX 500MG *ER* TAB PO SCH (10:29)
[2023-12-16] MEDS: VITAMIN D 1,000 INTERNATIONAL UNITS TABLET PO SCH (10:29)
[2023-12-16] MEDS: FERROUS SULFATE 325MG TAB PO SCH (10:30)
[2023-12-16] MEDS: FOLIC ACID 1MG TAB PO SCH (10:30)
[2023-12-17] MEDS: CALCIUM CARBONATE 500 MG CHEW U/D PO ONE (22:38)
[2023-12-17] MEDS: traZODone 100 MG TAB PO ONE (23:03)
[2023-12-18] MEDS: LORazepam 2 MG TAB PO STA (03:01)
[2023-12-18 10:49] VITALS: BP 122/72; TEMP 97.3; O2SAT 97
== END 2023-12-18 10:52 | disposition home or self-care (01) ==
LOC: M ED 21:08
DX: F25.0 Schizoaffective disorder, bipolar type (principal); R00.0 Tachycardia, unspecified; Z88.0 Allergy status to penicillin; Z88.8 Allergy status to other drugs, medicaments and biological substances; Z79.1 Long term (current) use of non-steroidal anti-inflammatories (NSAID); Z79.899 Other long term (current) drug therapy

== ENCOUNTER 2024-03-29 10:31 | Emergency (ER) | payer OTHER ==
[~2024-03-29] VITALS: Ht 162.6 cm; Wt 83.6 kg
[~2024-03-29 10:31] MED LIST changes: +DIVA500T9 PO; +OMEP40CA4 PO
[2024-03-29] MEDS: OLANZapine ORAL DISINTEGRATING TAB 5MG PO ONE (10:58)
[2024-03-29] MEDS ORDERED: BENZ2TAB48 PO (12:10)
[2024-03-29] MEDS ORDERED: DIVA1TAB48 PO (12:10)
[2024-03-29 12:13] LABS: HEMATOCRIT 36.2 % (36.0-47.0); HEMOGLOBIN 12.2 g/dl (12.0-15.5); MEAN CORPUSCULAR HEMOGLOBIN 29.8 pg (27.0-33.0); MEAN CORPUSCULAR HGB CONC 33.7 g/dl (32.0-36.5); MEAN CORPUSCULAR VOLUME 88.3 fl (80.0-96.0); PLATELET COUNT, AUTOMATED 309 10^3/uL (150-450)
[2024-03-29 12:34] LABS: AMPHETAMINES LEVEL URINE NEGATIVE (NEGATIVE); BARBITURATES URINE NEGATIVE (NEGATIVE); BENZODIAZEPINES URINE NEGATIVE (NEGATIVE); CANNABINOIDS URINE NEGATIVE (NEGATIVE); COCAINE METABOLITE URINE NEGATIVE (NEGATIVE); METHADONE URINE NEGATIVE (NEGATIVE); OPIATES URINE NEGATIVE (NEGATIVE); PHENCYCLIDINE URINE NEGATIVE (NEGATIVE)
[2024-03-29 12:37] LABS: ETHYL ALCOHOL (ETHANOL) < 0.003 % (0.000-0.010); VALPROIC ACID (DEPAKOTE) < 3.0 UG/ML (50.0-100.0)
[2024-03-29 12:39] LABS: ALBUMIN 4.1 G/DL (3.2-5.2); ALKALINE PHOSPHATASE 57 U/L (35-104); ALT/SGPT 19 U/L (7.0-40); AST/SGOT 17 U/L (<34); BILIRUBIN,DIRECT < 0.1 MG/DL (<0.4); BILIRUBIN,TOTAL 0.3 MG/DL (0.3-1.2); BLOOD UREA NITROGEN 11 MG/DL (9-23); CARBON DIOXIDE LEVEL 27 MMOL/L (20-31); CHLORIDE LEVEL 105 MMOL/L (98-107); CREATININE FOR GFR 0.56 MG/DL (0.55-1.30); GLOMERULAR FILTRATION RATE > 60.0 (>60); GLUCOSE, FASTING 88 MG/DL (60-100); SALICYLATE LEVEL < 3.0 MG/DL (<30); SODIUM LEVEL 141 MMOL/L (136-145); TOTAL PROTEIN 8.1 G/DL (5.7-8.2)
[2024-03-29 12:40] LABS: THYROID STIMULATING HORMONE 1.017 uIU/ML (0.55-4.78)
[2024-03-29 12:46] LABS: HCG, SERUM QUALITATIVE NEGATIVE (NEGATIVE)
[2024-03-29] MEDS ORDERED: ATIV1TAB10 PO (14:08)
[2024-03-29] MEDS ORDERED: HOME MED LIST COMPLETE! XX SCH (14:20)
[2024-03-29] MEDS: LORazepam 0.5 MG TAB PO STA (14:40)
[2024-03-29 15:57] VITALS: BP 138/92; TEMP 98.2; O2SAT 98
== END 2024-03-29 16:10 | disposition home or self-care (01) ==
LOC: M ED 10:31 → EDBD 10:31 → M ED 16:10
DX: F25.9 Schizoaffective disorder, unspecified (principal); D64.9 Anemia, unspecified; G40.909 Epilepsy, unspecified, not intractable, without status epilepticus; F17.210 Nicotine dependence, cigarettes, uncomplicated; Z88.0 Allergy status to penicillin; Z88.8 Allergy status to other drugs, medicaments and biological substances; Z79.1 Long term (current) use of non-steroidal anti-inflammatories (NSAID); Z79.899 Other long term (current) drug therapy

== ENCOUNTER 2024-03-31 10:36 | Inpatient (IN) | payer OTHER ==
[~2024-03-31 10:36] MED LIST changes: +ATIV1TAB10 PO; +BENZ2TAB48 PO
[2024-03-31] MEDS: NS (Normal Saline) 0.9% 1,000 ML IV ONE ×3 (11:14→18:35)
[2024-03-31 11:23] LABS: HEMATOCRIT 39.4 % (36.0-47.0); HEMOGLOBIN 13.4 g/dl (12.0-15.5); MEAN CORPUSCULAR HEMOGLOBIN 30.7 pg (27.0-33.0); MEAN CORPUSCULAR VOLUME 90.2 fl (80.0-96.0); PLATELET COUNT, AUTOMATED 361 10^3/uL (150-450); RED BLOOD COUNT 4.37 10^6/uL (4.00-5.40); WHITE BLOOD COUNT 14.5 10^3/uL (4.0-10.0)
[2024-03-31 11:47] LABS: AMPHETAMINES LEVEL URINE NEGATIVE (NEGATIVE)
[2024-03-31 11:48] LABS: BARBITURATES URINE NEGATIVE (NEGATIVE); BENZODIAZEPINES URINE NEGATIVE (NEGATIVE); CANNABINOIDS URINE NEGATIVE (NEGATIVE); COCAINE METABOLITE URINE NEGATIVE (NEGATIVE); METHADONE URINE NEGATIVE (NEGATIVE); OPIATES URINE NEGATIVE (NEGATIVE); PHENCYCLIDINE URINE NEGATIVE (NEGATIVE)
[2024-03-31 11:50] LABS: ETHYL ALCOHOL (ETHANOL) < 0.003 % (0.000-0.010)
[2024-03-31 11:51] LABS: SALICYLATE LEVEL < 3.0 MG/DL (<30)
[2024-03-31 11:55] LABS: HCG, SERUM QUALITATIVE NEGATIVE (NEGATIVE)
[2024-03-31] MEDS: LORazepam 2 MG TAB PO ONE (11:55)
[2024-03-31 12:09] LABS: ALBUMIN 4.4 G/DL (3.2-5.2); ALKALINE PHOSPHATASE 67 U/L (35-104); ALT/SGPT 30 U/L (7.0-40); AST/SGOT 52 U/L (<34); BILIRUBIN,DIRECT 0.1 MG/DL (<0.4); BILIRUBIN,TOTAL 0.4 MG/DL (0.3-1.2); BLOOD UREA NITROGEN 17 MG/DL (9-23); CALCIUM LEVEL 10.5 MG/DL (8.5-10.1); CARBON DIOXIDE LEVEL 23 MMOL/L (20-31); CHLORIDE LEVEL 103 MMOL/L (98-107); CPK CREATINE PHOSPHOKINASE 1505 U/L (34-145); CREATININE FOR GFR 0.72 MG/DL (0.55-1.30); GLOMERULAR FILTRATION RATE > 60.0 (>60); GLUCOSE, FASTING 144 MG/DL (60-100); POTASSIUM SERUM 4.2 MMOL/L (3.5-5.1); SODIUM LEVEL 137 MMOL/L (136-145); THYROID STIMULATING HORMONE 1.378 uIU/ML (0.55-4.78); TOTAL PROTEIN 8.9 G/DL (5.7-8.2)
[2024-03-31] MEDS: LORazepam 2 MG/ML 1ML VIAL IV STA (12:16)
[2024-03-31] MEDS ORDERED: traZODone 50 MG TAB PO PRN (13:25)
[2024-03-31 13:34] LABS: KETONE, URINE AUTO RFX TRACE mg/dL (NEGATIVE); LEUKOCYTE ESTERASE UR AUTO RFX NEGATIVE (NEGATIVE); MUCUS, URINE RFX SMALL (NEGATIVE); NITRITE, URINE AUTO RFX NEGATIVE (NEGATIVE); RBC, URINE AUTO RFX 5 /HPF (0-3); SQUAM EPITHELIAL CELL UR AURFX 2 /HPF (0-6); WBC, URINE AUTO RFX 1 /HPF (0-3)
[2024-03-31 14:04] LABS: MAGNESIUM LEVEL 2.3 MG/DL (1.8-2.4)
[2024-03-31] MEDS: LORazepam 2 MG/ML 1ML VIAL IV PRN (14:26)
[2024-03-31] MEDS: NS (Normal Saline) 0.9% 1,000 ML IV SCH ×2 (14:30→20:55)
[2024-03-31] MEDS: HALOPERIDOL LACTATE 5MG/ML VIAL IV PRN (16:10)
[2024-03-31] MEDS ORDERED: NS (Normal Saline) 0.9% 1,000 ML IV SCH (17:50)
[2024-03-31] MEDS: cefTRIAXone SOD 2 GM in DEXTROSE 5% (D5W) ADV/MINI-BAG 50 ML IV SCH (18:55)
[2024-03-31 19:23] LABS: C REACTIVE PROTEIN QUANTITATIV 3.36 MG/DL (<1.0)
[2024-03-31] MEDS: METOPROLOL TART 25 MG TABLET PO SCH (19:28)
[2024-03-31 19:35] LABS: PROCALCITONIN <0.04 ng/ml
[2024-03-31 19:44] LABS: HEPATITIS B SURFACE ANTIGEN NEGATIVE (NEGATIVE)
[2024-03-31 20:03] LABS: HEPATITIS C VIRUS ABY INDEX 0.02 INDEX (<0.8); MAGNESIUM LEVEL 1.7 MG/DL (1.8-2.4)
[2024-03-31 20:04] LABS: HEPATITIS B CORE ANTIBODY IGM NEGATIVE (NEGATIVE)
[2024-03-31 20:10] LABS: CPK CREATINE PHOSPHOKINASE 2767 U/L (34-145)
[2024-03-31 20:58] LABS: BASO % 0.2 % (0.0-1.0); EOS % 0.3 % (0.0-3.0); LYMPH # 3.4 10^3/uL (1.5-5.0); LYMPH % 29.8 % (24.0-44.0); MEAN CORPUSCULAR HGB CONC 33.7 g/dl (32.0-36.5); MONO # 1.4 10^3/uL (0.0-0.8); MONO % 12.5 % (2.0-8.0); NEUTROPHILS # 6.4 10^3/uL (1.5-8.5); NEUTROPHILS % 56.9 % (36.0-66.0); PLATELET COUNT, AUTOMATED 271 10^3/uL (150-450); RED BLOOD COUNT 3.37 10^6/uL (4.00-5.40); WHITE BLOOD COUNT 11.3 10^3/uL (4.0-10.0)
[2024-03-31 20:59] LABS: HEMOGLOBIN 10.1 g/dl (12.0-15.5)
[2024-03-31 21:35] VITALS: BP 131/87; TEMP 99.5; O2SAT 100
[2024-03-31] MEDS: NORCO, ANEXSIA 5/325MG TABLET (HYDROcodone/ACETAMINOPHEN) PO ONE (22:33)
[2024-03-31 22:50] VITALS: BP 130/88; TEMP 100.6; O2SAT 97
[2024-04-01 03:47] VITALS: BP 143/90; TEMP 99.5; O2SAT 100
[2024-04-01] MEDS ORDERED: HOME MED LIST COMPLETE! XX SCH (05:20)
[2024-04-01 05:48] LABS: BASO % 0.3 % (0.0-1.0); EOS # 0.1 10^3/uL (0.0-0.5); EOS % 0.8 % (0.0-3.0); HEMATOCRIT 28.7 % (36.0-47.0); HEMOGLOBIN 9.7 g/dl (12.0-15.5); LYMPH # 2.7 10^3/uL (1.5-5.0); LYMPH % 30.4 % (24.0-44.0); MEAN CORPUSCULAR HEMOGLOBIN 29.8 pg (27.0-33.0); MEAN CORPUSCULAR HGB CONC 33.8 g/dl (32.0-36.5); MEAN CORPUSCULAR VOLUME 88.3 fl (80.0-96.0); MONO # 1.1 10^3/uL (0.0-0.8); MONO % 12.6 % (2.0-8.0); NEUTROPHILS % 55.6 % (36.0-66.0); PLATELET COUNT, AUTOMATED 243 10^3/uL (150-450); RED BLOOD COUNT 3.25 10^6/uL (4.00-5.40); WHITE BLOOD COUNT 8.9 10^3/uL (4.0-10.0)
[2024-04-01 06:12] LABS: BLOOD UREA NITROGEN 11 MG/DL (9-23); CALCIUM LEVEL 8.2 MG/DL (8.5-10.1); CARBON DIOXIDE LEVEL 22 MMOL/L (20-31); CHLORIDE LEVEL 113 MMOL/L (98-107); CREATININE FOR GFR 0.59 MG/DL (0.55-1.30); GLOMERULAR FILTRATION RATE > 60.0 (>60); GLUCOSE, FASTING 90 MG/DL (60-100); POTASSIUM SERUM 3.5 MMOL/L (3.5-5.1); SODIUM LEVEL 140 MMOL/L (136-145)
[2024-04-01] MEDS: OMEPRAZOLE 20MG CAP PO SCH (08:20)
[2024-04-01] MEDS: ACETAMINOPHEN 325 MG TAB PO PRN (08:25)
[2024-04-01 12:00] VITALS: BP 119/82; TEMP 97.3; O2SAT 99
[2024-04-01] MEDS: LR 1,000 ML IV ONE (12:13)
[2024-04-01] MEDS: PERCOCET 5MG/325MG TAB PO ONE (12:52)
[2024-04-01] MEDS: LR 1,000 ML IV SCH (12:53)
[2024-04-01] MEDS: PROMETHAZINE 25MG/ML 1ML VIAL IV ONE (18:11)
[2024-04-01 20:06] VITALS: BP 149/92; TEMP 97.9; O2SAT 91
[2024-04-01] MEDS ORDERED: PROMETHAZINE 25MG/ML 1ML VIAL IV PRN (22:00)
[2024-04-02 03:42] VITALS: BP 122/72; TEMP 97.9; O2SAT 99
[2024-04-02 05:26] LABS: BASO % 0.5 % (0.0-1.0); EOS # 0.3 10^3/uL (0.0-0.5); EOS % 3.4 % (0.0-3.0); HEMATOCRIT 28.6 % (36.0-47.0); HEMOGLOBIN 9.4 g/dl (12.0-15.5); LYMPH # 3.1 10^3/uL (1.5-5.0); LYMPH % 40.7 % (24.0-44.0); MEAN CORPUSCULAR HGB CONC 32.9 g/dl (32.0-36.5); MEAN CORPUSCULAR VOLUME 91.4 fl (80.0-96.0); MONO # 0.7 10^3/uL (0.0-0.8); MONO % 8.6 % (2.0-8.0); NEUTROPHILS # 3.6 10^3/uL (1.5-8.5); NEUTROPHILS % 46.5 % (36.0-66.0); PLATELET COUNT, AUTOMATED 267 10^3/uL (150-450); RED BLOOD COUNT 3.13 10^6/uL (4.00-5.40); WHITE BLOOD COUNT 7.7 10^3/uL (4.0-10.0)
[2024-04-02 05:48] LABS: BLOOD UREA NITROGEN < 5 MG/DL (9-23); CALCIUM LEVEL 8.3 MG/DL (8.5-10.1); CARBON DIOXIDE LEVEL 26 MMOL/L (20-31); CHLORIDE LEVEL 112 MMOL/L (98-107); CPK CREATINE PHOSPHOKINASE 1896 U/L (34-145); CREATININE FOR GFR 0.53 MG/DL (0.55-1.30); GLOMERULAR FILTRATION RATE > 60.0 (>60); GLUCOSE, FASTING 104 MG/DL (60-100); POTASSIUM SERUM 3.8 MMOL/L (3.5-5.1); SODIUM LEVEL 144 MMOL/L (136-145)
[2024-04-02] MEDS: diphenhydrAMINE 50MG/ML VIAL IM PRN (07:36)
[2024-04-02] MEDS ORDERED: DOCUSATE SODIUM 100MG CAPSULE PO PRN (08:35)
[2024-04-02] MEDS: DIVALPROEX 125 MG TAB PO SCH (10:34)
[2024-04-02] MEDS: FERROUS SULFATE 325MG TAB PO SCH (10:34)
[2024-04-02] MEDS: VITAMIN D 1,000 INTERNATIONAL UNITS TABLET PO SCH (10:34)
[2024-04-02] MEDS: OMEPRAZOLE 20MG CAP PO SCH (10:35)
[2024-04-02] MEDS: FOLIC ACID 1MG TAB PO SCH (10:35)
[2024-04-02 12:00] VITALS: BP 167/104; TEMP 97.7; O2SAT 96
[2024-04-02] MEDS: HALOPERIDOL LACTATE 5MG/ML VIAL IM ONE (12:17)
[2024-04-02] MEDS: diphenhydrAMINE 50MG/ML VIAL IM ONE (12:17)
[2024-04-02 20:45] VITALS: BP 136/76; TEMP 97.7; O2SAT 100
[2024-04-03] MEDS: HALOPERIDOL LACTATE 5MG/ML VIAL IM PRN (01:20)
[2024-04-03 05:15] VITALS: BP 148/105; TEMP 97.3; O2SAT 98
[2024-04-03 07:09] LABS: BASO % 0.3 % (0.0-1.0); EOS # 0.2 10^3/uL (0.0-0.5); EOS % 2.4 % (0.0-3.0); HEMATOCRIT 29.3 % (36.0-47.0); HEMOGLOBIN 9.9 g/dl (12.0-15.5); LYMPH # 2.7 10^3/uL (1.5-5.0); LYMPH % 42.8 % (24.0-44.0); MEAN CORPUSCULAR HEMOGLOBIN 30.3 pg (27.0-33.0); MEAN CORPUSCULAR HGB CONC 33.8 g/dl (32.0-36.5); MEAN CORPUSCULAR VOLUME 89.6 fl (80.0-96.0); MONO # 0.5 10^3/uL (0.0-0.8); MONO % 8.2 % (2.0-8.0); NEUTROPHILS # 2.9 10^3/uL (1.5-8.5); NEUTROPHILS % 46.1 % (36.0-66.0); PLATELET COUNT, AUTOMATED 295 10^3/uL (150-450); RED BLOOD COUNT 3.27 10^6/uL (4.00-5.40); WHITE BLOOD COUNT 6.2 10^3/uL (4.0-10.0)
[2024-04-03 07:59] LABS: BLOOD UREA NITROGEN < 5 MG/DL (9-23); CALCIUM LEVEL 9.8 MG/DL (8.5-10.1); CARBON DIOXIDE LEVEL 30 MMOL/L (20-31); CHLORIDE LEVEL 107 MMOL/L (98-107); CPK CREATINE PHOSPHOKINASE 2282 U/L (34-145); CREATININE FOR GFR 0.52 MG/DL (0.55-1.30); GLOMERULAR FILTRATION RATE > 60.0 (>60); GLUCOSE, FASTING 109 MG/DL (60-100); POTASSIUM SERUM 4.3 MMOL/L (3.5-5.1); SODIUM LEVEL 142 MMOL/L (136-145)
[2024-04-03 12:00] VITALS: BP 151/102; TEMP 97.5; O2SAT 99
[2024-04-03 20:00] VITALS: BP 160/90; TEMP 97.5; O2SAT 99
[2024-04-03 23:01] VITALS: BP 165/102
[2024-04-04 03:50] VITALS: BP 158/106; TEMP 97.2; O2SAT 100
[2024-04-04] MEDS ORDERED: METO1TAB87 PO (09:44)
[2024-04-04 12:00] VITALS: BP 157/104; TEMP 97.5; O2SAT 99
== END 2024-04-04 15:07 | DRG 351 ==
LOC: EDBD 10:36 → M ED 10:36 → M ED INP 12:46 → M MSPAV 21:31
PROVIDERS: ADMIT General Practice; ATTEND Internal Medicine Nephrology
DX: M62.82 Rhabdomyolysis (principal); T68.XXXA Hypothermia, initial encounter; F20.0 Paranoid schizophrenia; F17.210 Nicotine dependence, cigarettes, uncomplicated; D50.9 Iron deficiency anemia, unspecified; E55.9 Vitamin D deficiency, unspecified; X31.XXXA Exposure to excessive natural cold, initial encounter; Y93.89 Activity, other specified; Y99.8 Other external cause status; K21.9 Gastro-esophageal reflux disease without esophagitis; Z79.899 Other long term (current) drug therapy; Z88.0 Allergy status to penicillin; Z88.8 Allergy status to other drugs, medicaments and biological substances

== ENCOUNTER 2024-04-04 10:58 | Inpatient (IN) | payer MEDICAID, OTHER ==
[~2024-04-04] VITALS: Ht 162.6 cm; Wt 78.3 kg
[~2024-04-04 10:58] MED LIST changes: +METO1TAB87 PO
[2024-04-04] MEDS ORDERED: ACETAMINOPHEN 325 MG TAB PO PRN (14:15)
[2024-04-04] MEDS ORDERED: traZODone 50 MG TAB PO PRN (14:15)
[2024-04-04] MEDS ORDERED: MAALOX 30 ML SUSP *UDC PO PRN (14:15)
[2024-04-04] MEDS ORDERED: MOM 30ML SUSPENSION UDC PO PRN (14:15)
[2024-04-05] MEDS: NICOTINE 14 MG/24 HR TRANSDERMAL TD SCH (09:00)
[2024-04-05] MEDS: DIVALPROEX 125 MG TAB PO SCH (09:00)
[2024-04-05] MEDS: FERROUS SULFATE 325MG TAB PO SCH (09:00)
[2024-04-05] MEDS: FOLIC ACID 1MG TAB PO SCH (09:00)
[2024-04-05] MEDS: OMEPRAZOLE 20MG CAP PO SCH (09:00)
[2024-04-05] MEDS: METOPROLOL TART 25 MG TABLET PO SCH (09:00)
[2024-04-05] MEDS: LORazepam 2 MG/ML 1ML VIAL IM STA (19:50)
[2024-04-05] MEDS: HALOPERIDOL LACTATE 5MG/ML VIAL IM STA (19:50)
[2024-04-05] MEDS: diphenhydrAMINE 50MG/ML VIAL IM ONE (19:51)
[2024-04-05] MEDS: METOPROLOL TART 50 MG TAB PO SCH (21:00)
[2024-04-06] MEDS: VITAMIN D 1,000 INTERNATIONAL UNITS TABLET PO SCH (09:23)
[2024-04-06] MEDS: diphenhydrAMINE 25MG CAP PO PRN (12:11)
[2024-04-06 15:36] VITALS: BP 134/83; TEMP 97.8; O2SAT 100
[2024-04-07] MEDS: traZODone 50 MG TAB PO PRN (02:27)
[2024-04-07 16:14] VITALS: BP 133/85; TEMP 98.3; O2SAT 98
[2024-04-08 15:47] VITALS: BP 140/80; TEMP 97.5; O2SAT 100
[2024-04-08] MEDS: DIVALPROEX 250MG TAB PO ONE (15:59)
[2024-04-08] MEDS: ACETAMINOPHEN 500 MG TAB PO PRN (16:36)
[2024-04-08 21:10] VITALS: BP 147/98; TEMP 98.5; O2SAT 99
[2024-04-09] MEDS: DIVALPROEX 250MG TAB PO ONE (08:47)
[2024-04-10] MEDS: DIVALPROEX 500 MG TAB PO SCH (09:35)
[2024-04-10] MEDS: DIVALPROEX 500 MG TAB PO ONE (12:10)
[2024-04-11] MEDS: IBUPROFEN 400MG TAB PO PRN (06:34)
[2024-04-11 15:43] VITALS: BP 132/70; TEMP 98.2; O2SAT 98
[2024-04-12] MEDS: HALOPERIDOL DECANOATE 100 MG/ML 1ML VIAL IM ONE (09:00)
[2024-04-12 15:08] VITALS: BP 136/86; TEMP 98.5; O2SAT 98
[2024-04-12] MEDS: BENZTROPINE 0.5 MG TAB PO PRN (22:31)
[2024-04-13] MEDS: [UNRECOGNIZED DRUG - REMARK] XX ONE (09:23)
[2024-04-13] MEDS: DOCUSATE SODIUM 100MG CAPSULE PO PRN (16:24)
[2024-04-13 16:34] VITALS: BP 127/82; TEMP 97.6; O2SAT 100
[2024-04-14 06:42] VITALS: BP 128/88; TEMP 97; O2SAT 99
[2024-04-14] MEDS: LORazepam 1 MG TAB PO ONE (23:27)
[2024-04-15 10:45] VITALS: BP 121/74
[2024-04-15 16:06] VITALS: BP 140/68; TEMP 97.8; O2SAT 100
[2024-04-16] MEDS: HALOPERIDOL DECANOATE 100 MG/ML 1ML VIAL IM ONE (12:00)
[2024-04-17 06:39] VITALS: BP 116/65; TEMP 99.4; O2SAT 99
[2024-04-18] MEDS: HALOPERIDOL DECANOATE 100 MG/ML 1ML VIAL IM ONE (11:10)
[2024-04-18 17:24] VITALS: BP 130/67; TEMP 96.5; O2SAT 100
[2024-04-18 17:39] VITALS: TEMP 96.8
[2024-04-19] MEDS: LORazepam 1 MG TAB PO PRN (20:26)
[2024-04-21 15:37] VITALS: BP 110/60; TEMP 97.1; O2SAT 100
[2024-04-22] MEDS: HALOPERIDOL DECANOATE 100 MG/ML 1ML VIAL IM ONE (12:38)
[2024-04-22 18:09] VITALS: BP 119/62; TEMP 97.5; O2SAT 99
[2024-04-23 08:44] VITALS: BP 125/65
[2024-04-24] MEDS ORDERED: BENZ0.5T2 PO (08:26)
[2024-04-24] MEDS ORDERED: VITAD1000T PO (08:26)
[2024-04-24] MEDS ORDERED: FERR1TAB8 PO (08:26)
[2024-04-24] MEDS ORDERED: HALO10TA20 PO (08:26)
[2024-04-24] MEDS ORDERED: TRAZ-252 PO (08:26)
[2024-04-24] MEDS ORDERED: OMEP-173 PO (08:26)
[2024-04-24] MEDS ORDERED: COLA100C5 PO (08:26)
[2024-04-24] MEDS ORDERED: DEPA1TAB3 PO (08:26)
[2024-04-24] MEDS ORDERED: LOPR1TAB6 PO (08:26)
[2024-04-24 08:53] VITALS: BP 126/66
[2024-04-24 08:58] VITALS: BP 126/66
== END 2024-04-24 11:38 | disposition home or self-care (01) | DRG 753 ==
LOC: M OR 15:13 → M PSY 15:17
PROVIDERS: ADMIT Psychiatry & Neurology Psychiatry; ATTEND Psychiatry & Neurology Psychiatry
DX: F31.2 Bipolar disorder, current episode manic severe with psychotic features (principal); E55.9 Vitamin D deficiency, unspecified; F79 Unspecified intellectual disabilities; D50.9 Iron deficiency anemia, unspecified; F17.210 Nicotine dependence, cigarettes, uncomplicated; K21.9 Gastro-esophageal reflux disease without esophagitis; Z91.148 Patient's other noncompliance with medication regimen for other reason; Z79.899 Other long term (current) drug therapy

== ENCOUNTER 2024-05-02 06:36 | Emergency (ER) | payer MEDICAID, OTHER ==
[~2024-05-02 06:36] MED LIST changes: +BENZ0.5T2 PO; +LOPR1TAB6 PO; +OMEP-173 PO; +VITAD1000T PO
[2024-05-02 06:46] VITALS: BP 127/78; TEMP 99.1; O2SAT 100
== END 2024-05-02 08:03 | disposition left against medical advice (07) ==
LOC: M ED 06:36 → EDBD 06:36 → M ED 08:03
DX: Z53.21 Procedure and treatment not carried out due to patient leaving prior to being seen by health care provider (principal)

== ENCOUNTER 2024-05-03 13:28 | Inpatient (IN) | payer MEDICAID, OTHER ==
[~2024-05-03] VITALS: Ht 162.6 cm; Wt 86.4 kg
[2024-05-03 14:11] LABS: HEMATOCRIT 34.8 % (36.0-47.0); HEMOGLOBIN 11.8 g/dl (12.0-15.5); MEAN CORPUSCULAR HGB CONC 33.9 g/dl (32.0-36.5); MEAN CORPUSCULAR VOLUME 91.3 fl (80.0-96.0); PLATELET COUNT, AUTOMATED 336 10^3/uL (150-450); RED BLOOD COUNT 3.81 10^6/uL (4.00-5.40); WHITE BLOOD COUNT 9.5 10^3/uL (4.0-10.0)
[2024-05-03 14:30] LABS: AMPHETAMINES LEVEL URINE NEGATIVE (NEGATIVE); BARBITURATES URINE NEGATIVE (NEGATIVE); BENZODIAZEPINES URINE NEGATIVE (NEGATIVE); COCAINE METABOLITE URINE NEGATIVE (NEGATIVE)
[2024-05-03 14:31] LABS: CANNABINOIDS URINE NEGATIVE (NEGATIVE); METHADONE URINE NEGATIVE (NEGATIVE); OPIATES URINE NEGATIVE (NEGATIVE); PHENCYCLIDINE URINE NEGATIVE (NEGATIVE)
[2024-05-03 14:33] LABS: ETHYL ALCOHOL (ETHANOL) < 0.003 % (0.000-0.010)
[2024-05-03 14:35] LABS: SALICYLATE LEVEL < 3.0 MG/DL (<30)
[2024-05-03 14:37] LABS: THYROID STIMULATING HORMONE 0.721 uIU/ML (0.55-4.78)
[2024-05-03 14:40] LABS: ALKALINE PHOSPHATASE 44 U/L (35-104); ALT/SGPT 21 U/L (7.0-40); AST/SGOT 19 U/L (<34); BILIRUBIN,DIRECT 0.1 MG/DL (<0.4); BILIRUBIN,TOTAL 0.4 MG/DL (0.3-1.2); BLOOD UREA NITROGEN < 5 MG/DL (9-23); CALCIUM LEVEL 9.8 MG/DL (8.5-10.1); CARBON DIOXIDE LEVEL 26 MMOL/L (20-31); CHLORIDE LEVEL 106 MMOL/L (98-107); CREATININE FOR GFR 0.51 MG/DL (0.55-1.30); GLOMERULAR FILTRATION RATE > 60.0 (>60); GLUCOSE, FASTING 98 MG/DL (60-100); POTASSIUM SERUM 3.7 MMOL/L (3.5-5.1); SODIUM LEVEL 139 MMOL/L (136-145); TOTAL PROTEIN 7.7 G/DL (5.7-8.2)
[2024-05-03 14:41] LABS: HCG, SERUM QUALITATIVE NEGATIVE (NEGATIVE)
[2024-05-03 16:02] LABS: VALPROIC ACID (DEPAKOTE) 3.6 UG/ML (50.0-100.0)
[2024-05-03] MEDS ORDERED: MED REC CURRENTLY UNOBTAINABLE XX SCH (16:15)
[2024-05-03] MEDS: DIVALPROEX 500 MG TAB PO ONE (17:46)
[2024-05-03] MEDS: LORazepam 1 MG TAB PO ONE (17:46)
[2024-05-03] MEDS: METOPROLOL TART 50 MG TAB PO SCH (20:36)
[2024-05-03] MEDS: FERROUS SULFATE 325MG TAB PO SCH (20:36)
[2024-05-04] MEDS: ALPRAZolam 0.5 MG TAB PO ONE (06:10)
[2024-05-04] MEDS ORDERED: OMEPRAZOLE 20MG CAP PO SCH (09:00)
[2024-05-04] MEDS ORDERED: VITAMIN D 1,000 INTERNATIONAL UNITS TABLET PO SCH (09:00)
[2024-05-04] MEDS ORDERED: FOLIC ACID 1MG TAB PO SCH (09:00)
[2024-05-04] MEDS ORDERED: DIVALPROEX 500 MG TAB PO SCH (09:00)
[2024-05-04 10:10] VITALS: BP 139/76; TEMP 97.7; O2SAT 96
[2024-05-04 15:41] VITALS: BP 131/81; TEMP 98.2; O2SAT 98
[2024-05-04] MEDS: DIVALPROEX 500MG *ER* TAB PO ONE (15:41)
[2024-05-04] MEDS ORDERED: METO50TA7 PO (16:51)
[2024-05-04] MEDS ORDERED: BENZ0.5T2 PO (16:51)
[2024-05-04] MEDS ORDERED: DEPA1TAB3 PO (16:51)
[2024-05-04] MEDS ORDERED: OMEP-173 PO (16:51)
[2024-05-04] MEDS ORDERED: D-101000 PO (16:51)
[2024-05-04] MEDS ORDERED: HALO10TA20 PO (16:51)
[2024-05-04] MEDS ORDERED: TRAZ-186 PO (16:51)
[2024-05-04] MEDS ORDERED: HOME MED LIST COMPLETE! XX SCH (16:55)
[2024-05-04] MEDS: OLANZapine ORAL DISINTEGRATING TAB 5MG PO PRN (17:02)
[2024-05-05] MEDS: MAALOX 30 ML SUSP *UDC PO PRN (06:20)
[2024-05-05] MEDS: diphenhydrAMINE 25MG CAP PO PRN (06:42)
[2024-05-06] MEDS ORDERED: traZODone 50 MG TAB PO PRN (01:50)
[2024-05-06] MEDS ORDERED: DOCUSATE SODIUM 100MG CAPSULE PO PRN (01:50)
[2024-05-06] MEDS: FERROUS SULFATE 325MG TAB PO SCH (09:00)
[2024-05-06] MEDS: DIVALPROEX 500 MG TAB PO SCH (09:00)
[2024-05-06] MEDS: **PENDING PPD ENTRY XX SCH (09:00)
[2024-05-06] MEDS: METOPROLOL TART 50 MG TAB PO SCH (09:00)
[2024-05-06] MEDS: OMEPRAZOLE 20MG CAP PO SCH (09:00)
[2024-05-06] MEDS: FOLIC ACID 1MG TAB PO SCH (09:00)
[2024-05-06] MEDS ORDERED: TUBERCULIN PPD 5 UNITS/0.1 ML ID SCH (13:10)
[2024-05-06] MEDS: TUBERCULIN PPD 5 UNITS/0.1 ML ID ONE (13:13)
[2024-05-06 16:33] VITALS: BP 133/74; TEMP 97.1; O2SAT 99
[2024-05-07 15:56] VITALS: BP 132/61; TEMP 97.5; O2SAT 100
[2024-05-07] MEDS: MOM 30ML SUSPENSION UDC PO PRN (19:40)
[2024-05-08] MEDS ORDERED: PPD DOCUMENTATION ENTRY MISC XX SCH ×2 (10:00→13:00)
[2024-05-08] MEDS: LORazepam 2 MG TAB PO PRN (15:32)
[2024-05-09 16:42] VITALS: BP 121/79; TEMP 98.3; O2SAT 98
[2024-05-10 15:08] VITALS: BP 106/64; TEMP 97.1; O2SAT 99
[2024-05-10] MEDS: IBUPROFEN 400MG TAB PO PRN (18:43)
[2024-05-10] MEDS: traZODone 50 MG TAB PO PRN (19:35)
[2024-05-10] MEDS: DIVALPROEX 500 MG TAB PO SCH (19:36)
[2024-05-10 21:58] VITALS: BP 151/78
[2024-05-11 16:02] VITALS: BP 120/66; TEMP 98.6; O2SAT 100
[2024-05-12] MEDS: PREPARATION H OINTMENT (HEMORRHOID) TOP SCH (10:52)
[2024-05-13 11:27] VITALS: BP 106/62; TEMP 98.1; O2SAT 98
[2024-05-14] MEDS: BENZTROPINE 0.5 MG TAB PO PRN (09:21)
[2024-05-14 15:16] VITALS: BP 110/56; TEMP 97.6; O2SAT 98
[2024-05-16 06:37] VITALS: BP 119/63; TEMP 97; O2SAT 99
[2024-05-16 15:56] VITALS: BP 112/59; TEMP 98; O2SAT 98
[2024-05-16] MEDS: OLANZapine INTRAMUSCULAR 10MG VIAL IM ONE (23:36)
[2024-05-19 15:35] VITALS: BP 115/60; TEMP 97.7; O2SAT 98
[2024-05-20 06:27] VITALS: BP 118/50; TEMP 97; O2SAT 97
[2024-05-20] MEDS: HALOPERIDOL DECANOATE 100 MG/ML 1ML VIAL IM ONE (12:43)
[2024-05-20 16:17] VITALS: BP 131/68; TEMP 97.9; O2SAT 99
[2024-05-21 15:32] VITALS: TEMP 97.5; O2SAT 99
[2024-05-22] MEDS: ACETAMINOPHEN 325 MG TAB PO PRN (15:17)
[2024-05-22 16:51] VITALS: BP 131/58; TEMP 97.8; O2SAT 96
[2024-05-23 09:42] VITALS: BP 124/73
[2024-05-24 06:32] VITALS: BP 131/63; O2SAT 99
[2024-05-24 06:55] VITALS: BP 131/66; TEMP 97; O2SAT 99
[2024-05-25 11:27] VITALS: BP 120/72
[2024-05-25 15:40] VITALS: BP 117/73; TEMP 97.7; O2SAT 99
[2024-05-26 15:44] VITALS: BP 110/58; TEMP 98.1; O2SAT 97
[2024-05-27 06:38] VITALS: BP 114/63; TEMP 98.2; O2SAT 100
[2024-05-27] MEDS: BENZTROPINE 0.5 MG TAB PO SCH (12:20)
[2024-05-27 15:26] VITALS: BP 110/79; TEMP 97.8; O2SAT 99
[2024-05-28] MEDS: CARIPRAZINE 1.5MG CAPSULE (VRAYLAR) PO SCH (09:43)
[2024-05-28 15:06] VITALS: BP 124/65; TEMP 97.5; O2SAT 100
[2024-05-29 06:26] VITALS: BP 105/60; TEMP 98; O2SAT 100
[2024-05-29 08:04] VITALS: BP 117/56
[2024-05-29 15:19] VITALS: BP 122/58; TEMP 97.9; O2SAT 98
[2024-05-30 09:24] VITALS: BP 129/68
[2024-05-30 15:24] VITALS: BP 101/59; TEMP 97.4; O2SAT 18
[2024-05-31 15:12] VITALS: BP 107/71; TEMP 97.6; O2SAT 99
[2024-06-01] MEDS: CARIPRAZINE 1.5MG CAPSULE (VRAYLAR) PO SCH (09:52)
[2024-06-01] MEDS ORDERED: MAALOX 30 ML SUSP *UDC PO PRN (11:55)
[2024-06-01] MEDS ORDERED: MOM 30ML SUSPENSION UDC PO PRN (11:55)
[2024-06-01] MEDS ORDERED: ACETAMINOPHEN 325 MG TAB PO PRN (11:55)
[2024-06-01] MEDS ORDERED: IBUPROFEN 400MG TAB PO PRN (11:55)
[2024-06-01 15:25] VITALS: BP 118/60; TEMP 97.5; O2SAT 98
[2024-06-01] MEDS: diphenhydrAMINE 25MG CAP PO PRN (20:44)
[2024-06-01] MEDS: traZODone 50 MG TAB PO PRN (20:44)
[2024-06-02 06:45] VITALS: BP 106/66; TEMP 97.2; O2SAT 100
[2024-06-02] MEDS: OLANZapine ORAL DISINTEGRATING TAB 5MG PO PRN (12:43)
[2024-06-02 15:31] VITALS: BP 117/62; TEMP 97.6; O2SAT 98
[2024-06-03 06:33] VITALS: BP 119/74; TEMP 97.9; O2SAT 99
[2024-06-03 17:13] VITALS: BP 126/68; TEMP 97.4; O2SAT 100
[2024-06-03] MEDS: TUBERCULIN PPD 5 UNITS/0.1 ML ID ONE (18:19)
[2024-06-04 06:59] VITALS: BP 115/61; TEMP 97.6; O2SAT 99
[2024-06-04 17:00] VITALS: BP 117/71; TEMP 97.3; O2SAT 100
[2024-06-04 17:52] LABS: KETONE, URINE AUTO RFX NEGATIVE (NEGATIVE); LEUKOCYTE ESTERASE UR AUTO RFX NEGATIVE (NEGATIVE); MUCUS, URINE RFX SMALL (NEGATIVE); NITRITE, URINE AUTO RFX NEGATIVE (NEGATIVE); RBC, URINE AUTO RFX 2 /HPF (0-3); SQUAM EPITHELIAL CELL UR AURFX 2 /HPF (0-6); WBC, URINE AUTO RFX 1 /HPF (0-3)
[2024-06-05 06:32] VITALS: BP 134/77; TEMP 96.4; O2SAT 100
[2024-06-05] MEDS: PPD DOCUMENTATION ENTRY MISC XX SCH (10:00)
[2024-06-05] MEDS ORDERED: PREPARATION H OINTMENT (HEMORRHOID) PR PRN (11:35)
[2024-06-05 15:10] VITALS: BP 132/70; TEMP 97.5; O2SAT 100
[2024-06-06 16:38] VITALS: BP 114/67; TEMP 97.9; O2SAT 98
[2024-06-07 09:10] VITALS: BP 129/71; TEMP 97.1; O2SAT 100
[2024-06-07 15:52] VITALS: BP 121/63; TEMP 97.2; O2SAT 97
[2024-06-08 08:58] VITALS: BP 131/74
[2024-06-09 06:55] VITALS: BP 112/58; TEMP 97.9; O2SAT 95
[2024-06-09] MEDS: DIVALPROEX 500 MG TAB PO SCH (15:18)
[2024-06-09 15:22] VITALS: BP 126/60; TEMP 97.4; O2SAT 98
[2024-06-10 06:36] VITALS: BP 123/58; TEMP 97; O2SAT 100
[2024-06-10 09:00] VITALS: BP 116/61
[2024-06-10] MEDS ORDERED: HALO10TA20 PO (09:57)
[2024-06-10] MEDS ORDERED: VRAY1.5C PO (09:57)
[2024-06-10] MEDS: DIVALPROEX 500 MG TAB PO SCH (10:56)
== END 2024-06-10 14:25 | DRG 753 ==
LOC: M ED 13:28 → EDBD 13:28 → M ED INP 05-04 08:20 → M PSY 05-04 09:58
PROVIDERS: ADMIT Psychiatry & Neurology Psychiatry; ATTEND Psychiatry & Neurology Psychiatry
DX: F31.2 Bipolar disorder, current episode manic severe with psychotic features (principal); Z91.148 Patient's other noncompliance with medication regimen for other reason; F41.9 Anxiety disorder, unspecified; F17.200 Nicotine dependence, unspecified, uncomplicated; Z79.899 Other long term (current) drug therapy; Z88.0 Allergy status to penicillin; Z88.8 Allergy status to other drugs, medicaments and biological substances; Z91.51 Personal history of suicidal behavior

== ENCOUNTER 2024-11-20 20:41 | Emergency (ER) | payer MEDICAID ==
[~2024-11-20] VITALS: Ht 162.6 cm; Wt 96.9 kg
[~2024-11-20 20:41] MED LIST changes: +BUPR-670 PO; -BUPR1TAB52 PO; +D-101000 PO; -DEPA250T32 PO; +DIVA-41 PO; +DIVA-65 PO; -DIVA500T94 PO; -IBUP1TAB6 PO; -LITH450T11 PO; +LITH450T17 PO; +METO50TA7 PO; -NYST-13 EXT; +NYST0.1C EXT; +SFHIBU600 PO; +TRAZ-186 PO; +VRAY1.5C PO
[2024-11-20 23:00] VITALS: BP 120/66; TEMP 97.7; O2SAT 98
== END 2024-11-20 23:35 | disposition left against medical advice (07) ==
LOC: M ED 20:41
DX: Z53.21 Procedure and treatment not carried out due to patient leaving prior to being seen by health care provider (principal)

== ENCOUNTER 2024-12-18 09:33 | Emergency (ER) | payer MEDICAID ==
[~2024-12-18] VITALS: Ht 162.6 cm; Wt 86.3 kg
[2024-12-18] MEDS ORDERED: BENZ1TAB5 PO (09:59)
[2024-12-18] MEDS ORDERED: TRAZ-257 PO (10:01)
[2024-12-18] MEDS ORDERED: RISP3TAB20 PO (10:01)
[2024-12-18] MEDS ORDERED: HALD100I2 IM (10:01)
[2024-12-18] MEDS: ACETAMINOPHEN 325 MG TAB PO ONE (10:15)
[2024-12-18] MEDS ORDERED: IBUP600T42 PO (11:16)
[2024-12-18 11:18] VITALS: BP 126/72; TEMP 97.2; O2SAT 97
== END 2024-12-18 11:25 | disposition home or self-care (01) ==
LOC: M ED 09:33
DX: R05.9 Cough, unspecified (principal); B34.1 Enterovirus infection, unspecified; F25.9 Schizoaffective disorder, unspecified; F17.210 Nicotine dependence, cigarettes, uncomplicated; Z88.0 Allergy status to penicillin; Z88.8 Allergy status to other drugs, medicaments and biological substances; Z79.1 Long term (current) use of non-steroidal anti-inflammatories (NSAID); Z79.899 Other long term (current) drug therapy

== ENCOUNTER 2024-12-21 15:27 | Emergency (ER) | payer MEDICAID ==
[~2024-12-21] VITALS: Ht 162.6 cm; Wt 85.7 kg
[~2024-12-21 15:27] MED LIST changes: +IBUP600T42 PO; +RISP3TAB20 PO
[2024-12-21 16:24] LABS: PLATELET COUNT, AUTOMATED 214 10^3/uL (150-450)
[2024-12-21 16:48] LABS: ALT/SGPT 33 U/L (7.0-40); AST/SGOT 16 U/L (<34); CALCIUM LEVEL 9.6 MG/DL (8.5-10.1); CARBON DIOXIDE LEVEL 28 MMOL/L (20-31); CHLORIDE LEVEL 107 MMOL/L (98-107); CREATININE FOR GFR 0.67 MG/DL (0.55-1.30); GLOMERULAR FILTRATION RATE > 90.0 (>60); POTASSIUM SERUM 4.3 MMOL/L (3.5-5.1); SALICYLATE LEVEL < 3.0 MG/DL (<30); SODIUM LEVEL 141 MMOL/L (136-145)
[2024-12-21 16:50] LABS: ETHYL ALCOHOL (ETHANOL) < 0.003 % (0.000-0.010)
[2024-12-21 16:52] LABS: HCG, SERUM QUALITATIVE NEGATIVE (NEGATIVE)
[2024-12-21 16:56] LABS: AMPHETAMINES LEVEL URINE NEGATIVE (NEGATIVE); BARBITURATES URINE NEGATIVE (NEGATIVE); BENZODIAZEPINES URINE NEGATIVE (NEGATIVE); CANNABINOIDS URINE NEGATIVE (NEGATIVE); COCAINE METABOLITE URINE NEGATIVE (NEGATIVE); METHADONE URINE NEGATIVE (NEGATIVE); OPIATES URINE NEGATIVE (NEGATIVE); PHENCYCLIDINE URINE NEGATIVE (NEGATIVE)
[2024-12-21 20:41] VITALS: BP 130/79; TEMP 98.3; O2SAT 98
== END 2024-12-21 20:57 | disposition home or self-care (01) ==
LOC: M ED 15:27
DX: F20.9 Schizophrenia, unspecified (principal); F17.210 Nicotine dependence, cigarettes, uncomplicated; Z88.0 Allergy status to penicillin; Z88.8 Allergy status to other drugs, medicaments and biological substances; Z79.1 Long term (current) use of non-steroidal anti-inflammatories (NSAID); Z79.899 Other long term (current) drug therapy

== ENCOUNTER 2025-01-20 09:43 | Inpatient (IN) | payer MEDICAID ==
[~2025-01-20] VITALS: Ht 154.9 cm; Wt 89.7 kg
[2025-01-20 10:29] LABS: PLATELET COUNT, AUTOMATED 214 10^3/uL (150-450)
[2025-01-20 11:00] LABS: ETHYL ALCOHOL (ETHANOL) 0.005 % (0.000-0.010)
[2025-01-20 11:01] LABS: HCG, SERUM QUALITATIVE NEGATIVE (NEGATIVE)
[2025-01-20 11:02] LABS: ALT/SGPT 22 U/L (7.0-40); AST/SGOT 15 U/L (<34); CALCIUM LEVEL 8.8 MG/DL (8.5-10.1); CARBON DIOXIDE LEVEL 26 MMOL/L (20-31); CHLORIDE LEVEL 107 MMOL/L (98-107); CREATININE FOR GFR 0.57 MG/DL (0.55-1.30); GLOMERULAR FILTRATION RATE > 90.0 (>60); POTASSIUM SERUM 3.5 MMOL/L (3.5-5.1); SALICYLATE LEVEL < 3.0 MG/DL (<30); SODIUM LEVEL 137 MMOL/L (136-145)
[2025-01-20 11:25] LABS: AMPHETAMINES LEVEL URINE NEGATIVE (NEGATIVE); BARBITURATES URINE NEGATIVE (NEGATIVE); BENZODIAZEPINES URINE NEGATIVE (NEGATIVE); CANNABINOIDS URINE NEGATIVE (NEGATIVE); COCAINE METABOLITE URINE NEGATIVE (NEGATIVE); METHADONE URINE NEGATIVE (NEGATIVE); OPIATES URINE NEGATIVE (NEGATIVE); PHENCYCLIDINE URINE NEGATIVE (NEGATIVE)
[2025-01-20] MEDS ORDERED: traZODone 50 MG TAB PO PRN (12:30)
[2025-01-20] MEDS ORDERED: IBUPROFEN 400 MG TAB PO PRN (12:30)
[2025-01-20] MEDS ORDERED: ACETAMINOPHEN 325 MG TAB PO PRN (12:30)
[2025-01-20] MEDS ORDERED: HALO10AM IM (12:55)
[2025-01-20] MEDS ORDERED: RISP4TAB95 PO (12:55)
[2025-01-20] MEDS ORDERED: DIVA1TAB48 PO (12:56)
[2025-01-20] MEDS ORDERED: LOPR1TAB6 PO (12:57)
[2025-01-20] MEDS ORDERED: PANT-23 PO (12:57)
[2025-01-20] MEDS ORDERED: HOME MED LIST COMPLETE! XX SCH (13:10)
[2025-01-20] MEDS ORDERED: LORA1TAB23 PO (15:27)
[2025-01-20] MEDS ORDERED: OLAN10TA12 PO (15:27)
[2025-01-20] MEDS ORDERED: RISP1TAB PO (15:27)
[2025-01-20] MEDS ORDERED: QUET50TA67 PO (15:27)
[2025-01-20] MEDS: DIVALPROEX 500 MG TAB PO SCH (20:58)
[2025-01-20] MEDS: traZODone 100 MG TAB PO SCH (20:58)
[2025-01-20] MEDS: BENZTROPINE 1 MG TAB PO SCH (20:58)
[2025-01-20] MEDS: DIVALPROEX 125 MG TAB PO SCH (20:59)
[2025-01-20] MEDS: METOPROLOL TART 50 MG TAB PO SCH (21:00)
[2025-01-20] MEDS: LORazepam 1 MG TAB PO PRN (21:02)
[2025-01-21 06:17] VITALS: BP 100/60; TEMP 98.2; O2SAT 99
[2025-01-21] MEDS: PANTOPRAZOLE 40MG TAB PO SCH (08:24)
[2025-01-21] MEDS: SERTRALINE 100 MG TAB PO SCH (08:24)
[2025-01-21 18:12] VITALS: BP 118/60; TEMP 97.2; O2SAT 100
[2025-01-22 06:16] VITALS: BP 115/74; TEMP 96.6; O2SAT 99
[2025-01-22] MEDS: FERROUS SULFATE 325 MG TAB PO SCH (08:01)
[2025-01-22] MEDS: FOLIC ACID 1 MG TAB PO SCH (08:01)
[2025-01-22 18:25] VITALS: BP 113/55; TEMP 97.1; O2SAT 97
[2025-01-22 19:40] VITALS: BP 113/55; TEMP 97.1; O2SAT 97
[2025-01-23 06:57] VITALS: BP 105/55; TEMP 97.6; O2SAT 98
[2025-01-23 08:46] LABS: CHOLESTEROL LEVEL 167.0 MG/DL (<200); CHOLESTEROL RISK RATIO 4.03 (<5); LDL CHOLESTEROL 102.2 MG/DL (<100); NON-HDL-C 125.6 MG/DL; TRIGLYCERIDES LEVEL 117.0 MG/DL (<150)
[2025-01-23] MEDS: PILL CUTTER 1 EACH XX PRN (09:06)
[2025-01-23 20:29] VITALS: BP 97/56; TEMP 97.6; O2SAT 98
[2025-01-24 06:45] VITALS: BP 102/56; TEMP 97.2; O2SAT 100
[2025-01-24] MEDS: OLANZapine ORAL DISINTEGRATING TAB 5MG PO PRN (08:55)
[2025-01-25 06:29] VITALS: BP 110/66; TEMP 98.4; O2SAT 100
[2025-01-25 15:42] VITALS: BP 116/61; TEMP 97.7; O2SAT 99
[2025-01-26 06:21] VITALS: BP 107/61; TEMP 97; O2SAT 98
[2025-01-26] MEDS ORDERED: SERTRALINE 100 MG TAB PO SCH (09:25)
[2025-01-26] MEDS: SERTRALINE HCL 50 MG TAB PO SCH (09:33)
[2025-01-26] MEDS: SERTRALINE 100 MG TAB PO SCH (09:33)
[2025-01-26 18:35] VITALS: BP 114/63; TEMP 97.8; O2SAT 98
[2025-01-27 07:01] VITALS: BP 108/60; TEMP 96.4; O2SAT 100
[2025-01-27 09:03] VITALS: BP 99/56
[2025-01-27 16:16] VITALS: BP 135/74; TEMP 97.3; O2SAT 98
[2025-01-28 06:41] VITALS: BP 105/59; TEMP 97.5; O2SAT 96
[2025-01-28 08:54] VITALS: BP 116/67
[2025-01-28 16:50] VITALS: BP 99/63; TEMP 97.3; O2SAT 99
[2025-01-29 06:26] VITALS: BP 106/59; TEMP 98.6; O2SAT 100
[2025-01-29] MEDS: MOM 30 ML SUSPENSION UDC PO PRN (12:00)
[2025-01-29 16:21] VITALS: BP 123/63; TEMP 97.3; O2SAT 96
[2025-01-29] MEDS: MAALOX 30 ML SUSP *UDC PO PRN (20:14)
[2025-01-30 16:03] VITALS: BP 104/56; TEMP 97.6; O2SAT 96
[2025-01-31 06:28] VITALS: BP 111/56; TEMP 97.9; O2SAT 99
[2025-02-01 06:27] VITALS: BP 113/96; TEMP 97; O2SAT 96
[2025-02-01 08:53] VITALS: BP 113/58
[2025-02-01 14:40] VITALS: BP 136/66; TEMP 97.7; O2SAT 98
[2025-02-02 06:10] VITALS: BP 118/72; TEMP 97.6; O2SAT 98
[2025-02-02 15:44] VITALS: BP 125/60; TEMP 98.5; O2SAT 98
[2025-02-03 06:31] VITALS: BP 117/57; TEMP 97.8; O2SAT 98
[2025-02-03 08:37] VITALS: BP 112/63
[2025-02-03 08:39] VITALS: BP 112/63
[2025-02-03] MEDS ORDERED: BENZ1TAB5 PO (09:12)
[2025-02-03] MEDS ORDERED: DEPA1TAB3 PO (09:12)
[2025-02-03] MEDS ORDERED: DIVA1TAB48 PO (09:22)
[2025-02-03] MEDS ORDERED: SERT-141 PO (09:22)
[2025-02-03] MEDS ORDERED: OLAN10TA12 PO (09:22)
[2025-02-03] MEDS ORDERED: RISP3TAB20 PO (09:22)
[2025-02-03] MEDS ORDERED: TRAZ-257 PO (09:22)
[2025-02-03] MEDS ORDERED: RISP4TAB95 PO (09:22)
== END 2025-02-03 13:19 | disposition home or self-care (01) | DRG 753 ==
LOC: M ED 09:43 → M ED INP 12:28 → M PSY 15:14
PROVIDERS: ADMIT General Practice; ATTEND Psychiatry & Neurology Psychiatry
DX: F31.5 Bipolar disorder, current episode depressed, severe, with psychotic features (principal); I10 Essential (primary) hypertension; F41.9 Anxiety disorder, unspecified; F17.200 Nicotine dependence, unspecified, uncomplicated; D50.9 Iron deficiency anemia, unspecified; F43.10 Post-traumatic stress disorder, unspecified; K21.9 Gastro-esophageal reflux disease without esophagitis; Z79.899 Other long term (current) drug therapy; Z88.0 Allergy status to penicillin; Z88.8 Allergy status to other drugs, medicaments and biological substances